=== PATIENT | female | born 1980 | race Caucasian/White ===

== ENCOUNTER 2016-03-29 06:08 | Inpatient (IN) ==
[2016-03-29] MEDS ORDERED: Albuterol 2.5 MG/3 ML NEBULIZER IH ONE (06:26)
[2016-03-29] MEDS ORDERED: Clindamycin 900 MG/50 ML 900 MG/50 ML IV.SOLN IVPB ONE (06:26)
[2016-03-29] MEDS ORDERED: Lidocaine 1% 20 ML MDV ID ONE (06:26)
[2016-03-29] MEDS: Ringers Solution, Lactated 1,000 ML IVC SCH (06:43)
[2016-03-29] MEDS ORDERED: *HR* Phenylephrine 10 MG/ML VIAL ONE (06:44)
[2016-03-29] MEDS ORDERED: Dexamethasone 4 MG/ML VIAL ONE (06:44)
[2016-03-29] MEDS ORDERED: *HR* Midazolam HCl 5 MG/5 ML VIAL IVP ONE (06:44)
[2016-03-29] MEDS ORDERED: *HR* Rocuronium Bromide 50 MG/5 ML VIAL ONE ×2 (06:44→08:24)
[2016-03-29] MEDS ORDERED: Ondansetron 4 MG/2 ML VIAL ONE (06:44)
[2016-03-29] MEDS ORDERED: *HR* FentaNYL (PF) 250 MCG/5 ML VIAL ONE (06:45)
[2016-03-29] MEDS ORDERED: *HR* Propofol 200 MG/20 ML VIAL IVP ONE (06:47)
--- NOTE | 2016-03-29 06:56 | Anesthesia Evaluation PreOp ---
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 WHEEL HAND FILER History: Denies Any Significant HX Other Medical History: Denies Any Significant HX, Other (bipolar) Anesthesia History: No Prior Anesthetic Complications (mutiple condylomas removed), Past Anesthesia Alcohol Use: occasionally Drug use: marijuana Medications and Allergies Albuterol Sulfate [Albuterol Inhaler] 2 puff IH Q4HR PRN 10/01/14 [History] Aripiprazole [Abilify] 30 mg PO DAILY 10/01/14 [History] Diazepam [Valium] 10 mg PO QID PRN 10/01/14 [History] Duloxetine [Cymbalta] 120 mg PO DAILY 10/01/14 [History] Esomeprazole Magnesium [Nexium] 40 mg PO DAILY 10/01/14 [History] Fluticasone/Salmeterol [Advair 500-50 Diskus] 1 puff IH BID 10/01/14 [History] Methocarbamol [Robaxin] 500 mg PO Q8HR PRN #20 tablet 04/28/15 [Rx] Naproxen [Naprosyn] 500 mg PO BID 5 Days 09/04/15 [Rx] Ipratropium/Albuterol Neb [Duoneb] 3 ml IH Q6HR PRN 02/03/16 [History] Oxygen 3 l .ROUTE AD 02/03/16 [History] Tiotropium [place] [Spiriva Respimat] 2 puff IH DAILY 02/03/16 [History] PredniSONE 40 mg PO DAILY 5 Days 02/05/16 [Rx] Azithromycin [Zithromax Tri-Akira] 500 mg PO DAILY #3 tablet 02/23/16 [Rx] PredniSONE [Prednisone] 5 mg PO TAPER #1 packet 02/23/16 [Rx] Allergies Asenapine [From Saphris] Allergy (Verified 02/23/16 15:42) Rash lurasidone [From Latuda] Allergy (Verified 02/23/16 15:42) Rash Cefaclor Adverse Reaction (Verified 02/23/16 15:42) Rash lamotrigine [From Lamictal] Adverse Reaction (Verified 02/23/16 15:42) Migraine - Meds/Allergy Pre-op Review Medications Reviewed: Yes Allergies Reviewed: Yes Beta Blockers on Current Med List: No Anesthesia Results - Imaging EKG: report reviewed Anesthesia Exam Selected Entries 03/29/16 06:34 Temperature 98.4 F Pulse Rate 82 Respiratory Rate 18 Blood Pressure 112/69 O2 Sat by Pulse Oximetry 93 L Height: 65in Weight: 248lbs 41BMI NPO (# of Hours): >8hrs Pain Scale: 0 Pain Scale Used: Numeric (1 - 10) - HEENT Pupil (Motor): EOMI Mallampati: II Teeth: Normal Oral Opening: Greater than 3 - BALANCE WHEEL HAND FILER LOC: Oriented BALANCE WHEEL HAND FILER Motor: Normal RUE, Normal LUE, Normal RLE, Normal LLE, Normal Face BALANCE WHEEL HAND FILER Sensory: Normal: RUE, LUE, RLE, LLE, Face - Cardiac Rhythm: Regular Murmur: None - Pulmonary Breath Sounds: bilateral Clear Respiratory Effort: Symmetrical Anesthesia Assess/Plan ASA Score: 3 Modified [place] Scale for Level of Consciousness: Cooperative, oriented, and tranquil Anesthetic Plan: General Monitoring Plan: Standard Monitors Recovery Plan: PACU (Discussed risks of GA with patient. At this time I don't believe she needs a-line. Did advise due to extensive smoking history and continued smoking (last one this morning), she may require ICU for difficult extubation. Questions answered. Agrees to proceed. Will not attempt epidural due to size.)
--- NOTE | 2016-03-29 07:00 | History & Physical Report ---
Date of Encounter: 03/29/16 Time of Encounter: 06:59 24 Hour HP Update - Instructions Instructions: If the History and Physical is less than 30 days old and was completed prior to A.M. admission and or procedure and has NOT been updated on calendar day of procedure please complete this update prior to performing procedure. - Update Patient reports changes in Medical Condition: No Changes in assessment/condition: No Changes in Medication: No Preop tests/diagnostics Reviewed: Yes Pre-Op MRSA Screen: Negative Surgery Remains Indicated: Yes Consent for Planned Operative Procedure(s) Verified: Yes - Pre-Operative Checklist Preoperative Checklist Indicated: No Prophylactic Antibiotic Ordered: Yes Home Medications Include Beta Jim: No Beta Jim Taken Today (Day of Surgery): No Beta Jim Taken Yesterday (Day Prior to Surgery): No Is VTE Prophylaxis Indicated?: Yes
[2016-03-29] MEDS ORDERED: Bupivacaine/EPI 1:200k 0.5%PF 10 ML VIAL ONE ×2 (07:18→08:58)
--- NOTE | 2016-03-29 09:01 | Operative Note ---
Date of procedure: 03/29/16 Pre-op diagnosis: Interstitial lung disease. Post-op diagnosis: same Procedure: 1. Right posterolateral thoracotomy incision. 2. Right lower lobe lung wedge biopsy. 3. Right middle lobe lung wedge biopsy. 4. Right upper lobe lung wedge biopsy. Implants: None. Complications: None. Anesthesia: GETA Local Anesthetics: 0.5% Sensorcaine HCL with Epinephrine 1:200,000 SubQ (cc) ( 15cc) Surgeon: Ernestina Heard Formula Checker: David Lopez Estimated blood loss (cc): 50 Condition: stable Disposition: ICU Procedure in Detail: INDICATIONS FOR OPERATION: The patient is a 35-year-old lady with a long smoking history who is had progressive shortness of breath and dyspnea on exertion for the least the last 2 -3 years. She states that 2 years ago she smoked 5 packs of cigarettes per day; however, has slowly weaned herself to 1 pack per day currently. Chest CT performed August 22, 2014 revealed cystic lucencies throughout the lung with surrounding groundglass opacities as well as right hilar and mediastinal lymphadenopathy. 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 She requires nocturnal oxygen, and recently was noted to have a decreased oxygen saturation with limited activity will be recertified for oxygen therapy. The patient underwent a fiberoptic bronchoscopy with BAL on February 03, 2016. This test was negative for malignant cells and the patient was not able to tolerate a biopsy due to excessive coughing. Patient is referred for lung biopsy for definitive diagnosis. FINDINGS AT OPERATION: The patient had black lung parenchyma consistent with her long smoking history. No other abnormalities were noted. DESCRIPTION OF OPERATION: After obtaining informed consent from the patient, she was taken to the operating room where satisfactory general endotracheal anesthetic was induced. A double-lumen endotracheal tube was inserted as were other appropriate monitoring lines. The patient was then turned in the left lateral decubitus position and her right lateral chest was prepped and draped in a sterile fashion. A standard posterolateral thoracotomy incision was made in the skin and subcutaneous tissue. The latissimus dorsi muscle group was divided and the serratus anterior muscle group was reflected anteriorly. The fourth intercostal space was identified and entered. Upon entering the right pleural space and examination was performed. The patient had black lung parenchyma consistent with her long smoking history; however, no other abnormalities were noted. The right lower lobe, right middle lobe, and right upper lobe were identified. Wedge biopsies of all 3 lobes were then taken using a ELISA stapling device. Two 32 [place] chest tubes were placed, one anteriorly and one posteriorly. The ribs were reapproximated using #1 Vicryl suture. The serratus anterior muscle group, latissimus dorsi muscle group, subcutaneous tissue, and skin edges were reapproximated using running Vicryl sutures. Sterile dressings were then applied. The patient was transferred to the ICU in satisfactory postoperative condition. There were no intraoperative complications, and the isthmic, needle, and sponge count were correct at end of operation.
[2016-03-29] MEDS ORDERED: *HR* OxyCODONE/APAP 5/325 TABLET PO PRN (09:08)
[2016-03-29] MEDS ORDERED: *HR* Morphine 2 MG/ML SYRINGE IVP PRN ×2 (09:08)
[2016-03-29] MEDS ORDERED: Naloxone 0.4 MG/ML INJ IVP PRN (09:08)
[2016-03-29 09:44] LABS: Basophils # 0.1 K/mcL (0.0-0.2); Basophils % 0.4 %; Eosinophils # 0.4 K/mcL (0.0-0.6); Eosinophils % 2.5 %; Hematocrit 45.5 % (35.3-44.9); Immature Granulocytes % 0.4 % (0-4); Lymphocytes # 3.8 K/mcL (0.6-4.6); Lymphocytes % 27.1 %; Mean Corpuscular HGB Conc 31.9 g/dL (31.6-35.5); Mean Corpuscular Hemoglobin 29.7 pg (28.0-33.3); Mean Platelet Volume 8.8 fL (9.4-12.4); Monocytes # 0.5 K/mcL (0.0-1.3); Monocytes % 3.8 %; Neutrophils # 9.2 K/mcL (1.6-8.9); Platelet Count 282 K/mcL (140-400); Red Blood Count 4.89 M/mcL (3.82-4.97); Red Cell Distribution Width 14.5 % (11.5-14.5); Segmented Neutrophils % 65.8 %
[2016-03-29 09:46] LABS: Hemoglobin 14.5 g/dL (11.5-15.4)
[2016-03-29] MEDS: *HR* HYDROmorphone 20 MG/20 ML PCA IVC PRN ×2 (10:11→22:36)
[2016-03-29] MEDS: 0.9 % Sodium Chloride w KCl 20 MEQ/1,000 ML MLS IV SCH (10:17)
[2016-03-29] MEDS: Albuterol 2.5 MG/3 ML NEBULIZER IH SCH ×3 (11:50→20:39)
[2016-03-29] MEDS: Ketorolac 15 MG/ML VIAL IVP SCH ×3 (14:03→23:05)
[2016-03-29] MEDS: Clindamycin 900 MG/50 ML 900 MG/50 ML IV.SOLN IVPB SCH ×2 (18:30→23:39)
[2016-03-29] MEDS: *HR* Heparin 5,000 UNIT/ML VIAL SQ SCH (18:31)
[2016-03-29 22:29] LABS: Calcium 8.6 mg/dL (8.6-10.8); Potassium 6.4 mEq/L (3.5-4.5)
[2016-03-29 23:24] LABS: Calcium 8.5 mg/dL (8.6-10.8); Potassium 6.1 mEq/L (3.5-4.5)
[2016-03-29] MEDS ORDERED: 0.9 % Sodium Chloride 500 ML ONE (23:36)
[2016-03-30] MEDS: Albuterol 2.5 MG/3 ML NEBULIZER IH SCH ×5 (00:43→15:15)
[2016-03-30 04:30] LABS: Basophils % 0.1 %; Eosinophils % 0.1 %; Hematocrit 42.5 % (35.3-44.9); Hemoglobin 13.4 g/dL (11.5-15.4); Immature Granulocytes % 0.5 % (0-4); Lymphocytes # 2.5 K/mcL (0.6-4.6); Lymphocytes % 15.7 %; Mean Corpuscular HGB Conc 31.5 g/dL (31.6-35.5); Mean Corpuscular Hemoglobin 30.1 pg (28.0-33.3); Mean Corpuscular Volume 95.5 fL (83.0-100.0); Monocytes # 1.1 K/mcL (0.0-1.3); Monocytes % 6.8 %; Neutrophils # 12.4 K/mcL (1.6-8.9); Platelet Count 285 K/mcL (140-400); Red Blood Count 4.45 M/mcL (3.82-4.97); Red Cell Distribution Width 14.4 % (11.5-14.5); Segmented Neutrophils % 76.8 %
[2016-03-30 04:42] LABS: Calcium 8.7 mg/dL (8.6-10.8)
[2016-03-30 05:39] LABS: Potassium 4.6 mEq/L (3.5-4.5)
[2016-03-30] MEDS: Ketorolac 15 MG/ML VIAL IVP SCH (06:36)
[2016-03-30] MEDS: *HR* Heparin 5,000 UNIT/ML VIAL SQ SCH ×2 (06:38→18:06)
[2016-03-30] MEDS: 0.9 % Sodium Chloride w KCl 20 MEQ/1,000 ML MLS IV SCH (06:39)
[2016-03-30] MEDS: Ringers Solution, Lactated 1,000 ML IVC SCH (06:39)
--- NOTE | 2016-03-30 09:01 | Cardiothoracic Progress Note ---
Date of Encounter: 03/30/16 Time of Encounter: 08:59 - Assessment and plan (1) Interstitial lung disease Current Visit: Yes Status: Acute The patient is recovering well from her right thoracotomy with open lung biopsy 3. She will be transferred to the stepdown unit today. Aggressive pulmonary toilet will continue. The assessment and plan as outlined above was discussed with the patient and/or family members who expressed understanding and agreement. All questions were answered. - Subjective Procedure(s) Performed: POD#1 S/P Right thoracotomy with wedge biopsy 3 Interval history: The patient remains extubated and is breathing comfortably. Her postoperative pain is fairly well controlled with a Dilaudid FRONT OFFICE SUPERVISOR. She has no complaints. Vital Signs, Last 4 Hours Temp Pulse Resp BP Pulse Ox 03/30/16 08:39 98.7 F 03/30/16 08:00 86 24 86/63 91 L 03/30/16 07:30 89 03/30/16 07:00 80 12 110/80 91 L 03/30/16 06:00 77 18 116/94 91 L 03/30/16 05:00 76 16 128/84 87 L [place] Flow Rate Oxygen Flow Rate (LPM) 15 Clinical Data, last 8 Hours Output, Chest Tube Drainage 20 Amount [Right Lateral Chest #2 ] Output, Chest Tube Drainage 20 Amount [Right Lateral Chest #2 ] Output, Chest Tube Drainage 34 Amount [Right Lateral Chest #2 ] Output, Chest Tube Drainage 10 Amount [Right Lateral Chest #1 ] Output, Chest Tube Drainage 10 Amount [Right Lateral Chest #1 ] Output, Chest Tube Drainage 17 Amount [Right Lateral Chest #1 ] Output, Urine Amount [Urethral 100 (Ruiz)] Output, Urine Amount [Urethral 100 (Ruiz)] Weight 03/28/16 03/29/16 03/30/16 23:59 23:59 23:59 Weight 111.13 kg 114.6 kg - Physical Examination General: Conversant, No Apparent Distress Neck: No JVD, Normal carotid pulses Cardiac: Reg Rate and Rhythm, Normal S1 and S2, No Murmur Incision: No signs of infection, Dry/intact dressing Chest tubes: Minimal drainage, Other (No air leak.) Lungs: Normal Breath Sounds, No Wheeze, Rales, Rhonchi Neuro: Alert and responsive, No focal deficits noted Vascular: Normal capillary refill Extremities: No Clubbing, No Cyanosis, No Edema - Labs 03/30/16 04:09 03/30/16 04:09 Lab Results, Last 24 hours 03/29/16 03/29/16 03/29/16 09:34 22:11 23:05 WBC 14.1 H Hgb 14.5 D Hct 45.5 H Plt Count 282 Sodium 135 L 135 L Potassium 6.4 H 6.1 H Chloride 100 100 Carbon Dioxide 25 24 BUN 11 11 Creatinine 1.33 H 1.27 H Glucose 95 93 Calcium 8.6 8.5 L 03/30/16 03/30/16 04:09 04:09 WBC 16.2 H Hgb 13.4 Hct 42.5 Plt Count 285 Sodium 137 Potassium 4.6 H D Chloride 98 Carbon Dioxide 30 H BUN 15 Creatinine 1.44 H Glucose 93 Calcium 8.7 - Imaging Chest Xray: image reviewed (No pneumothorax. Bibasilar atelectasis.) - VTE Documentation of Mechanical Device: Intermittent pneumatic compression device Consult Discharge Plan - Plan Referrals: Mervin Santiago MD [Primary Care Provider] -
[2016-03-30] MEDS ORDERED: Budesonide/Formoterol 160/4.5 MDI IH SCH ×2 (09:46→10:45)
[2016-03-30] MEDS ORDERED: Ipratropium/Albuterol Neb 3 ML IH PRN (09:46)
[2016-03-30] MEDS ORDERED: *HR* HYDROmorphone 20 MG/20 ML PCA IVC PRN (09:46)
[2016-03-30] MEDS ORDERED: Methocarbamol 500 MG TABLET PO PRN (09:46)
[2016-03-30] MEDS ORDERED: Naloxone 0.4 MG/ML INJ IVP PRN (09:46)
[2016-03-30] MEDS: Tiotropium 18 MCG inhalation IH SCH (10:39)
[2016-03-30] MEDS: 0.9 % Sodium Chloride 1,000 ML IVC SCH (10:57)
[2016-03-30] MEDS: ARIPiprazole 10 MG TABLET PO SCH (10:58)
[2016-03-30] MEDS: *HR* OxyCODONE/APAP 5/325 TABLET PO PRN ×3 (11:08→23:34)
[2016-03-30] MEDS ORDERED: Ondansetron 4 MG/2 ML VIAL ONE (11:24)
[2016-03-30] MEDS: Ondansetron 4 MG/2 ML VIAL IVP PRN ×2 (11:28→23:57)
[2016-03-30 11:50] LABS: Uric Acid 7.2 mg/dL (2.6-6.0)
[2016-03-30 14:09] LABS: Bilirubin,Urine Negative (Negative); Blood,Urine Large (Negative); Clarity,Urine Clear (Clear); Color,Urine Yellow (Yellow); Glucose,Urine (UA) Normal (Normal); Ketones,Urine Negative (Negative); Leukocyte Esterase,Urine Trace (Negative); Nitrite,Urine Negative (Negative); PH,Urine 5.5 pH Units (5.0-8.0); Protein,Urine Negative (Neg-Trace); Urobilinogen,Urine Normal (Normal)
[2016-03-30 14:10] LABS: Bacteria,Urine None Seen per hpf (None-Few); Hyaline Casts,Urine None Seen per lpf (None-Few); RBC,Urine TNTC per hpf (0-3); Squamous Epithelial Cell,Urine Many per lpf (None-Few)
[2016-03-30] MEDS ORDERED: *HR* HYDROmorphone 2 MG/ML SYRINGE IVP ONE (15:59)
[2016-03-30] MEDS ORDERED: *HR* HYDROmorphone 2 MG/ML SYRINGE ONE (16:04)
--- NOTE | 2016-03-30 16:43 | Pulmonology Consult Note ---
<Real Carlisle - Last Filed: 03/30/16 16:34> Date of Encounter: 03/30/16 Time of Encounter: 16:15 Assessment and Plan (1) Hypoxia Current Visit: Yes Status: Acute Patient has been having recurrent episodes of hypoxia post thoracotomy for lung biopsy oligocystic lesion seen on CT exam. Patient has extensive smoking history with COPD and suspected interstitial lung disease. Patient current hypoxia could be related to her not having her home inhaled medications as well as inability to take deep breaths due to pain associated with recent thoracotomy. The patient's RN reports that her hypoxia seems to occur upon awakening after sleep and not having adequate analgesia. Patient placed on BiPAP with low-pressure Symbicort causes patient nausea despite her taking Advair at home normally We will have patient take home Advair and will stop Symbicort Scheduled DuoNeb Continue when necessary albuterol Continue home Spiriva We will add 40 mg Solu-Medrol every 8 hours (2) Post-thoracotomy pain Current Visit: Yes Status: Acute Patient continues to have significant pain in her right posterior back due to recent thoracotomy. She is on a Dilaudid FUNCTIONAL ARCHITECT to help her with pain, this appears to be working moderately well. We will continue Dilaudid FUNCTIONAL ARCHITECT (3) Interstitial lung disease Current Visit: Yes Status: Acute Patient underwent elective thoracotomy with right lung biopsy on 03/29/16 for closer evaluation of cystic lesion seen in right lung and groundglass opacities. (4) MECHELLE (acute kidney injury) Current Visit: Yes Status: Acute Patient has had elevated serum creatinine since admission to the hospital with prior normal levels of serum creatinine. This could be related to stress and recent surgery. Patient continue to have good urinary output We will continue to monitor labs closely (5) Leukocytosis Current Visit: Yes Status: Acute Likely result of recent stress from thoracotomy Qualifiers: Leukocytosis type: unspecified Qualified Code(s): D72.829 - Elevated white blood cell count, unspecified (6) DVT prophylaxis Current Visit: Yes Status: Acute GI prophylaxis: Omeprazole DVT prophylaxis: Heparin Neuro/sedation: No concerns this time Pulmonary: Hypoxemia due to pain versus not be on home medications. Will continue home medications Advair, Spiriva, will add Solu-Medrol and DuoNeb. BiPAP as needed to maintain oxygen saturations. Continue Dilaudid FUNCTIONAL ARCHITECT for analgesia the patient more inclined to take deep breaths. Cardiovascular: Tachycardia likely result of pain. Fluids/electrolytes: Slight hyperkalemia, will continue monitor GI: Acid production with cough, some nausea. Will continue Prilosec and Tums as needed Renal: MECHELLE likely result of recent procedures. We will continue to monitor ID: No concerns at this time Heme/Onc: Recent biopsies of cystic lesions lung, weighing lung biopsy CODE STATUS: Full History of Present Illness Consult date: 03/30/16 Requesting physician: Ernestina Heard Reason for consult: hypoxemia Chief complaint: Hypoxia post thoracotomy and lung biopsy History of present illness: Mrs. Monet came to [place] for elective thoracotomy with wedge biopsies of the upper, middle, and lower right lung. She was found in August 2014 CT to have cystic linear densities throughout the lung strata by groundglass opacity with hilar and mediastinal lymphadenopathy. She had been having shortness of breath and dyspnea on exertion for 2-3 years. She has medical history is significant for COPD due to extensive smoking history. Reports that up until a couple years ago she smoked 5 packs of cigarettes a day since weaned herself down. Post thoracotomy patient has been relatively relatively comfortable but has developed some hypoxemia. She also complains of some nausea but she states it might be related to acid in her stomach. She does feel like she has to cough, though finds it painful and difficult. She does says that when she coughs it is productive of both blood and some sputum. She also reports pain with deep inspiration at the site of her recent thoracotomy. Past Med Surg Social Fam HX - Past Medical History Medical history: COPD, GERD, other Psychiatric history: anxiety, bipolar, depression - Social History Smoking Status: Current every day smoker Packs per day: 1 Smokeless Tobacco Status: No Alcohol use: occasionally Drug use: marijuana Medications and Allergies Albuterol Sulfate [Albuterol Inhaler] 2 puff IH Q4HR PRN 10/01/14 [History] Aripiprazole [Abilify] 30 mg PO DAILY 10/01/14 [History] Diazepam [Valium] 10 mg PO QID PRN 10/01/14 [History] Duloxetine [Cymbalta] 120 mg PO DAILY 10/01/14 [History] Esomeprazole Magnesium [Nexium] 40 mg PO DAILY 10/01/14 [History] Fluticasone/Salmeterol [Advair 500-50 Diskus] 1 puff IH BID 10/01/14 [History] Methocarbamol [Robaxin] 500 mg PO Q8HR PRN #20 tablet 04/28/15 [Rx] Naproxen [Naprosyn] 500 mg PO BID 5 Days 09/04/15 [Rx] Ipratropium/Albuterol Neb [Duoneb] 3 ml IH Q6HR PRN 02/03/16 [History] Oxygen 3 l .ROUTE AD 02/03/16 [History] Tiotropium [place] [Spiriva Respimat] 2 puff IH DAILY 02/03/16 [History] Allergies Cefaclor Allergy (Verified 03/29/16 07:40) Rash Asenapine [From Saphris] Adverse Reaction (Verified 03/29/16 07:40) See Comments patient states symptoms worsen lamotrigine [From Lamictal] Adverse Reaction (Verified 03/29/16 07:40) Migraine lurasidone [From Latuda] Adverse Reaction (Verified 03/29/16 07:40) See Comments patient states symptoms worsen - Constitutional Constitutional: no chills, no fever(s), no headache(s) - Cardiovascular Cardiovascular: chest pain (In posterior right chest, site of thoracotomy), dyspnea, no lightheadedness, no palpitations - Respiratory Respiratory: cough, dyspnea, hemoptysis, pain on inspirtation, pain with cough - Gastrointestinal Gastrointestinal: heartburn, nausea, no abdominal pain, no melena, no vomiting - Neurological Neurological: no confusion, no headache(s) Physical Examination Vital Signs: Vital Signs, Last 4 Hours Temp Pulse Resp BP Pulse Ox 03/30/16 16:03 15 160/62 92 L 03/30/16 16:00 111 03/30/16 15:00 80 14 139/90 86 L 03/30/16 13:00 97.4 F L 79 12 151/90 93 L General appearance: alert, appears uncomfortable Eyes: nonicteric ENT: oropharynx moist Effort: mildly labored Auscultation: left: clear, right: rales Cardiovascular: other (Tachycardia, regular rhythm) Gastrointestinal: normoactive bowel sounds, soft, non-tender, non-distended Integumentary: normal, other ([address] in right, posterior chest training sanguinous fluid, water seals intact) Extremities: no cyanosis, no edema, no clubbing, pink and warm, pulses normal Musculoskeletal: no deformities normal mental status, non-focal exam, pupils equal and round mood appropriate, affect normal Results - Laboratory Findings CBC and BMP: 03/30/16 04:09 03/30/16 04:09 Abnormal lab findings: Abnormal lab results WBC 16.2 K/mcL (4.3-11.1) H 03/30/16 04:09 MCHC 31.5 g/dL (31.6-35.5) L 03/30/16 04:09 MPV 9.0 fL (9.4-12.4) L 03/30/16 04:09 Neutrophils # 12.4 K/mcL (1.6-8.9) H 03/30/16 04:09 Potassium 4.6 mEq/L (3.5-4.5) H D 03/30/16 04:09 Carbon Dioxide 30 mEq/L (19-29) H 03/30/16 04:09 Creatinine 1.44 mg/dL (0.57-1.11) H 03/30/16 04:09 Est GFR ( Amer) 50 (> 60) L 03/30/16 04:09 Est GFR (Non-Af Amer) 41 (> 60) L 03/30/16 04:09 POC Glucose 101 (58-89) H 03/29/16 09:31 Uric Acid 7.2 mg/dL (2.6-6.0) H 03/30/16 04:09 Creatine Kinase 1345 Units/L (29-168) H 03/30/16 04:09 Urine Blood Large (Negative) H 03/30/16 13:55 Ur Leukocyte Esterase Trace (Negative) H 03/30/16 13:55 Urine Microscopic RBC TNTC per hpf (0-3) H 03/30/16 13:55 Urine Microscopic WBC 5-15 per hpf (0-3) H 03/30/16 13:55 Ur Squamous Epith Cells Many per lpf (None-Few) H 03/30/16 13:55 Ur Culture Indicated? YES (NO) A 03/30/16 13:55 - Clinical Findings Intake & Output: Intake & Output 03/30/16 03/30/16 03/30/16 07:59 15:59 23:59 Intake Total 530 / 530 480 / 480 Output Total 281 / 281 500 / 500 100 / 100 Balance 249 / 249 -20 / -20 -100 / -100 Weight 114.6 kg Consult Discharge Plan - Plan Referrals: Mervin Santiago MD [Primary Care Provider] - <Suzan Bhagat - Last Filed: 03/30/16 21:34> All Systems: A 10-system review of systems was performed and is negative for pertinent findings except as documented above in the HPI. Physical Examination Vital Signs: Vital Signs, Last 4 Hours Temp Pulse Resp BP Pulse Ox 03/30/16 20:51 12 144/73 95 03/30/16 20:45 97.7 F 03/30/16 20:19 96 12 144/73 93 L 03/30/16 17:35 20 87 L Results - Laboratory Findings CBC and BMP: 03/30/16 04:09 03/30/16 16:49 Abnormal lab findings: Abnormal lab results WBC 16.2 K/mcL (4.3-11.1) H 03/30/16 04:09 MCHC 31.5 g/dL (31.6-35.5) L 03/30/16 04:09 MPV 9.0 fL (9.4-12.4) L 03/30/16 04:09 Neutrophils # 12.4 K/mcL (1.6-8.9) H 03/30/16 04:09 Sodium 131 mEq/L (136-145) L 03/30/16 16:49 Chloride 96 mEq/L (98-109) L 03/30/16 16:49 Creatinine 1.31 mg/dL (0.57-1.11) H 03/30/16 16:49 Est GFR ( Amer) 56 (> 60) L 03/30/16 16:49 Est GFR (Non-Af Amer) 46 (> 60) L 03/30/16 16:49 POC Glucose 101 (58-89) H 03/29/16 09:31 Calculated Osmolality 272 (280-300) L 03/30/16 16:49 Uric Acid 7.2 mg/dL (2.6-6.0) H 03/30/16 04:09 Calcium 8.4 mg/dL (8.6-10.8) L 03/30/16 16:49 Creatine Kinase 1345 Units/L (29-168) H 03/30/16 04:09 Urine Blood Large (Negative) H 03/30/16 13:55 Ur Leukocyte Esterase Trace (Negative) H 03/30/16 13:55 Urine Microscopic RBC TNTC per hpf (0-3) H 03/30/16 13:55 Urine Microscopic WBC 5-15 per hpf (0-3) H 03/30/16 13:55 Ur Squamous Epith Cells Many per lpf (None-Few) H 03/30/16 13:55 Ur Culture Indicated? YES (NO) A 03/30/16 13:55 - Clinical Findings Intake & Output: Intake & Output 03/30/16 03/30/16 03/30/16 07:59 15:59 23:59 Intake Total 530 / 530 480 / 480 240 / 240 Output Total 281 / 281 850 / 850 400 / 400 Balance 249 / 249 -370 / -370 -160 / -160 Weight 114.6 kg - Attending Attestation I examined this patient and my medical decision-making was reviewed with the LINOLEUM MECHANIC/PA/Advanced Practice Nurse/Resident Physician. I agree with the documented findings, disposition and treatment plan as described except to the extent set forth below. Patient seen and examined. Labs, radiology, chart personally reviewed. Agree with resident's history and physical, assessment, plan with following comments: FOOD TECHNICIAN: Patient follows commands, Pulmonary: Patient has acute/chronic hypoxic respiratory failure and I feel she ahs component of AECOPD. WIll treat with bronchodilators, steroid and NIV. Patient SPO2 has improved and I feel with pain and atelectasis, her hypoxia could get worse. Encouraged patient to do IS. At this point she feels more comfortable and as soon as she has better oxygenation, will wean off positive pressure to face mask or NC due to her recent surgery. Patient has chest tubes which is been managed by Dr. Heard. If she doesn't respond to NIV, then she will need to be placed on invasive mechanical ventilation. Cardiovascular: stable GI: Nutrition per dietary and GI prophylaxis per routine Heme: DVT prophylaxis per routine ID: Continue antibiotics and plan to de-escalation Renal; urine out put and renal funtion reviewed Endorcine: blood glucose is monitored Lines: all lines checked and no evidence of infections Skin: skin care to prevent pressure ulcers per nursing routine care I spent 35 min of Critical Care time with this patient. It involved decision making of high complexity to assess, manipulate, and support vital organ system failure and/or to prevent further life threatening deterioration of the patient' s condition. The time involved in the performance of separately reportable procedures was not counted toward critical care time.
[2016-03-30 17:10] LABS: Calcium 8.4 mg/dL (8.6-10.8); Potassium 4.2 mEq/L (3.5-4.5)
--- NOTE | 2016-03-30 17:25 | Nephrology Consult Note ---
Date of Encounter: 03/30/16 Time of Encounter: 10:30 Assessment and Plan (1) MECHELLE (acute kidney injury) Current Visit: Yes Status: Acute Elevated SCr in the setting of NSAIDs use, mild hypotension Will bolus 500cc NS now and encourage po fluids Will stop naproxen and all nephrotoxins if possible Will check CK and uric acid levels Will check urine sodium and creatinine as well as eosinophils (2) Hyperkalemia Current Visit: Yes Status: Acute Likely due to MECHELLE and supplements Potassium also most normalized at 4.6 s/p kayexalate Agree with no more potassium supplements or lactate ringer Will repeat BMP this pm History of Present Illness - Reason for Consult Consult date: 03/30/16 Acute Kidney Injury, hyperkalemia Requesting physician: Ernestina Heard - History of Present Illness 35 y o female with PMH of previous tobacco use and COPD admitted for thoracotomy for lung biopsy with progressive history of SOB of several years duration. Post thoracotomy complicated by hyperkalemia and elevated SCr up to 6.4 and 1.44, GFR 41 respectively. She denies any prior history of renal disease. Previos SCr ranged from 0.6 to 0.8, GFR >60. She reports history of stress incontinence but no kidney stones. She ddoes have a significant history of NSAIDs use on outpatient and did receive toradol and her home medication, naproxen. she also received IVf with potassium supplements along with lactate ringer yesterday but now discontinued. She did have a brief epsiode of madhav BP down to 80s systolic otherwise no other compalints except for nausea this am. Chest tube in place with minimal discomfort Past Med Surg Social Fam HX - Past Medical History Medical history: COPD, GERD, other Psychiatric history: anxiety, bipolar, depression - Social History Smoking Status: Current every day smoker Packs per day: 1 Smokeless Tobacco Status: No Alcohol use: occasionally Drug use: marijuana Medications and Allergies Albuterol Sulfate [Albuterol Inhaler] 2 puff IH Q4HR PRN 10/01/14 [History] Aripiprazole [Abilify] 30 mg PO DAILY 10/01/14 [History] Diazepam [Valium] 10 mg PO QID PRN 10/01/14 [History] Duloxetine [Cymbalta] 120 mg PO DAILY 10/01/14 [History] Esomeprazole Magnesium [Nexium] 40 mg PO DAILY 10/01/14 [History] Fluticasone/Salmeterol [Advair 500-50 Diskus] 1 puff IH BID 10/01/14 [History] Methocarbamol [Robaxin] 500 mg PO Q8HR PRN #20 tablet 04/28/15 [Rx] Naproxen [Naprosyn] 500 mg PO BID 5 Days 09/04/15 [Rx] Ipratropium/Albuterol Neb [Duoneb] 3 ml IH Q6HR PRN 02/03/16 [History] Oxygen 3 l .ROUTE AD 02/03/16 [History] Tiotropium [place] [Spiriva Respimat] 2 puff IH DAILY 02/03/16 [History] Allergies Cefaclor Allergy (Verified 03/29/16 07:40) Rash Asenapine [From Saphris] Adverse Reaction (Verified 03/29/16 07:40) See Comments patient states symptoms worsen lamotrigine [From Lamictal] Adverse Reaction (Verified 03/29/16 07:40) Migraine lurasidone [From Latuda] Adverse Reaction (Verified 03/29/16 07:40) See Comments patient states symptoms worsen Review of Systems All Systems: reviewed and no additional remarkable complaints except as stated ( 10 systems reviewed as noted in hPI) Exam - Vital Signs Vital signs: Initial Vital Signs Temp Pulse Resp BP Pulse Ox 98.4 F 82 18 112/69 93 L 03/29/16 06:23 03/29/16 06:23 03/29/16 06:23 03/29/16 06:23 03/29/16 06:23 Vital Signs - Last 8 Hours Temp Pulse Resp BP Pulse Ox 03/30/16 16:40 10 143/74 93 L 03/30/16 16:03 15 160/62 92 L 03/30/16 16:00 111 03/30/16 15:30 97.9 F 03/30/16 15:00 80 14 139/90 86 L 03/30/16 13:00 97.4 F L 79 12 151/90 93 L 03/30/16 11:15 97.4 F L 03/30/16 11:12 75 03/30/16 11:00 77 10 119/84 94 L Intake and Output 03/30/16 03/30/16 03/30/16 07:59 15:59 23:59 Intake Total 530 / 530 480 / 480 Output Total 281 / 281 850 / 850 100 / 100 Balance 249 / 249 -370 / -370 -100 / -100 Intake: IV Fluids 50 / 50 Cleocin 900 MG/50 ML 900 50 / 50 mg In 50 ml @ 50 mls/hr IVPB Q8HR [facility] Rx#: [id number] Oral 480 / 480 480 / 480 Output: Urine 200 / 200 100 / 100 100 / 100 Urethral (Ruiz) 200 / 200 100 / 100 100 / 100 Catheter 650 / 650 Chest Tube Drainage 81 / 81 100 / 100 Right Lateral Chest #1 27 / 27 30 / 30 Right Lateral Chest #2 54 / 54 70 / 70 Other: Meal Breakfast Percent of Meal Consumed 50% Weight 114.6 kg Patient Weight 03/30/16 23:59 Weight 114.6 kg - General Appearance General appearance: well-developed, well-nourished EENT: ATNC, PERRL Neck: no JVD, supple Respiratory: clear (+Chest tubes) Cardiology: no edema, normal S1, normal S2 Gastrointestinal: no tenderness, no guarding Integumentary: warm and dry Neurologic: no focal deficit Musculoskeletal: no deformities Psychiatric: mood/affect appropriate Results - Lab Results 04/01/16 04:05 04/01/16 04:05 Most recent lab results Calcium 8.4 mg/dL (8.6-10.8) L 03/30/16 16:49 Consult Discharge Plan - Plan Referrals: Mervin Santiago MD [Primary Care Provider] - (SENT WEB REQUEST ON 04-01-16 [id number]) Ernestina Heard MD [Partnered Physician] - 04/22/16 2:20 pm
[2016-03-30] MEDS: Ipratropium/Albuterol Neb 3 ML IH SCH ×2 (17:35→20:51)
[2016-03-30] MEDS: diazePAM 5 MG TABLET PO PRN (19:05)
[2016-03-30] MEDS ORDERED: Mag Hydrox/Al Hydrox/Simeth 30 ML UDC PO PRN (20:00)
[2016-03-30 21:25] LABS: Creatinine,Urine 99 mg/dL
[2016-03-30 21:27] LABS: Sodium, Urine < 20.0 mEq/L
[2016-03-30] MEDS: MethylPREDNISolone 40 MG/ML VIAL IVP SCH (23:10)
[2016-03-31] MEDS: Ipratropium/Albuterol Neb 3 ML IH SCH ×7 (00:25→19:54)
[2016-03-31 04:31] LABS: Hematocrit 39.2 % (35.3-44.9); Hemoglobin 12.5 g/dL (11.5-15.4); Mean Corpuscular HGB Conc 31.9 g/dL (31.6-35.5); Mean Corpuscular Hemoglobin 30.2 pg (28.0-33.3); Mean Corpuscular Volume 94.7 fL (83.0-100.0); Mean Platelet Volume 9.4 fL (9.4-12.4); Platelet Count 211 K/mcL (140-400); Red Blood Count 4.14 M/mcL (3.82-4.97); Red Cell Distribution Width 14.2 % (11.5-14.5)
[2016-03-31 04:46] LABS: Calcium 8.8 mg/dL (8.6-10.8)
[2016-03-31 04:51] LABS: Potassium 5.5 mEq/L (3.5-4.5)
[2016-03-31] MEDS ORDERED: Furosemide 20 MG/2 ML VIAL IVP ONE (05:52)
[2016-03-31] MEDS: *HR* Heparin 5,000 UNIT/ML VIAL SQ SCH ×2 (05:58→18:20)
--- NOTE | 2016-03-31 07:01 | Cardiothoracic Progress Note ---
Date of Encounter: 03/31/16 Time of Encounter: 06:59 - Assessment and plan (1) Interstitial lung disease Current Visit: Yes Status: Acute The patient is recovering well from her right thoracotomy with open lung biopsy 3. The chest tubes were removed. She will be transferred to the stepdown unit when a bed is available. Aggressive pulmonary toilet will continue. The assessment and plan as outlined above was discussed with the patient and/or family members who expressed understanding and agreement. All questions were answered. - Subjective Procedure(s) Performed: POD#2 S/P Right thoracotomy with wedge biopsy 3 Interval history: The patient remains extubated and is breathing comfortably. Her postoperative pain is fairly well controlled with a Dilaudid GAS APPLIANCE SERVICER. She has no complaints. Vital Signs, Last 4 Hours Temp Pulse Resp BP Pulse Ox 03/31/16 04:49 98.3 F 90 17 148/85 87 L 03/31/16 04:35 22 148/85 94 L Oxgyen Flow Rate Oxygen Flow Rate (LPM) 15 Clinical Data, last 8 Hours Output, Chest Tube Drainage 30 Amount [Right Lateral Chest #2 ] Output, Chest Tube Drainage 38 Amount [Right Lateral Chest #1 ] Weight 03/29/16 03/30/16 03/31/16 23:59 23:59 23:59 Weight 111.13 kg 114.6 kg 115.847 kg - Physical Examination General: Conversant, No Apparent Distress Neck: No JVD, Normal carotid pulses Cardiac: Reg Rate and Rhythm, Normal S1 and S2, No Murmur Incision: No signs of infection, Dry/intact dressing Chest tubes: Minimal drainage, Other (No air leak.) Lungs: Normal Breath Sounds, No Wheeze, Rales, Rhonchi Neuro: Alert and responsive, No focal deficits noted Vascular: Normal capillary refill Extremities: No Clubbing, No Cyanosis, No Edema - Labs 03/31/16 03:55 03/31/16 03:55 Lab Results, Last 24 hours 03/30/16 03/30/16 03/31/16 04:09 16:49 03:55 WBC 15.6 H Hgb 12.5 Hct 39.2 Plt Count 211 Sodium 137 131 L Potassium 4.6 H D 4.2 Chloride 98 96 L Carbon Dioxide 30 H 24 BUN 15 14 Creatinine 1.44 H 1.31 H Glucose 93 93 Calcium 8.7 8.4 L 03/31/16 03:55 WBC Hgb Hct Plt Count Sodium 130 L Potassium 5.5 H D Chloride 97 L Carbon Dioxide 23 BUN 14 Creatinine 1.32 H Glucose 117 H Calcium 8.8 - Imaging Chest Xray: image reviewed (No pneumothorax. Bibasilar atelectasis/low lung volumes.) - VTE Documentation of Mechanical Device: Intermittent pneumatic compression device Consult Discharge Plan - Plan Referrals: Mervin Santiago MD [Primary Care Provider] -
[2016-03-31] MEDS: Tiotropium 18 MCG inhalation IH SCH (08:02)
--- NOTE | 2016-03-31 08:47 | Pulmonology Progress Note ---
<Real Carlisle - Last Filed: 03/31/16 11:17> Date of Encounter: 03/31/16 Time of Encounter: 08:30 Assessment and Plan (1) Hypoxia Current Visit: Yes Status: Acute Patient has been having recurrent episodes of hypoxia post thoracotomy for lung biopsy of cystic lesions seen on CT exam. Patient has extensive smoking history with COPD and suspected interstitial lung disease. Patient current hypoxia could be related to her not having her home inhaled medications as well as inability to take deep breaths due to pain associated with recent thoracotomy. The patient's RN reports that her hypoxia seems to occur upon awakening after sleep and not having adequate analgesia. We will have BiPAP off and on available for patient but recommend to maintain oxygen saturation is inserted Symbicort causes patient nausea despite her taking Advair at home normally We will have patient take home Advair and will stop Symbicort Scheduled DuoNeb Continue when necessary albuterol Continue home Spiriva Continue 40 mg Solu-Medrol every 8 hours We will encourage mobilization to hopefully increase lung volumes and debility of lungs to expand (2) Post-thoracotomy pain Current Visit: Yes Status: Acute Patient states she is had much improvement in the pain and right-sided for chest. She is on a Dilaudid FOOD AND BEVERAGE OPERATIONS MANAGER to help her with pain, this appears to be working well. We will continue Dilaudid FOOD AND BEVERAGE OPERATIONS MANAGER (3) Interstitial lung disease Current Visit: Yes Status: Acute Patient underwent elective thoracotomy with right lung biopsy on 03/29/16 for closer evaluation of cystic lesion seen in right lung and groundglass opacities. (4) MECHELLE (acute kidney injury) Current Visit: Yes Status: Acute Patient has had elevated serum creatinine since admission to the hospital with prior normal levels of serum creatinine. Possibly due to anti-inflammatory usage and hypotension per nephrology. Patient continue to have good urinary output Nephrology is following, appreciate recommendations for continued management and care We will avoid potentially nephrotoxic agents We will continue to monitor labs closely (5) Leukocytosis Current Visit: Yes Status: Acute Likely result of recent stress from thoracotomy and Solu-Medrol administration Qualifiers: Leukocytosis type: unspecified Qualified Code(s): D72.829 - Elevated white blood cell count, unspecified (6) DVT prophylaxis Current Visit: Yes Status: Acute GI prophylaxis: Omeprazole DVT prophylaxis: Heparin Neuro/sedation: No concerns this time Pulmonary: Hypoxemia due to pain versus not be on home medications. Will continue home medications Advair, Spiriva, will add Solu-Medrol and DuoNeb. BiPAP as needed to maintain oxygen saturations. Continue Dilaudid FOOD AND BEVERAGE OPERATIONS MANAGER for analgesia the patient more inclined to take deep breaths. Encourage mobilization Cardiovascular: Tachycardia likely result of pain. Fluids/electrolytes: Slight hyperkalemia, will continue monitor and possibly give more Kayexalate GI: Acid production with cough, nausea resolved, will give simethicone. Will continue Prilosec Renal: MECHELLE likely result of hypotension and had usage. Nephrology following. We will continue to monitor ID: Urine culture negative. No concerns at this time Heme/Onc: Recent biopsies of cystic lesions lung, weighing lung biopsy CODE STATUS: Full Subjective Principal diagnosis: Hypoxemia post thoracotomy, interstitial lung disease, MECHELLE Interval history: When seen she is sitting in bed comfortably eating breakfast. She reports she is doing well today, having less pain than yesterday as well as breathing easier. She says she has had some resolution of her nausea but still feels as if she has acid coming up when she burps/coughs. She states she is having no pain in her back last chest. She denies nausea and fever, she denies shortness of breath and chest pain, she denies weakness, but reports fatigue. Objective PUL Vital signs: Last Vital Signs Temp 98.1 F 03/31/16 07:40 Pulse 90 03/31/16 04:49 Resp 17 03/31/16 08:16 BP 148/85 03/31/16 04:49 Pulse Ox 87 L 03/31/16 08:16 General appearance: no acute distress, alert Eyes: nonicteric ENT: oropharynx moist Effort: normal Auscultation: left: wheezes (Very slight), right: rales (Middle and Lower lung craven) Cardiovascular: other (Regular rhythm, tachycardia) Integumentary: normal, other (One chest tube removed from right posterior chest , one still in place (250 mL drained, waterseal intact)) Extremities: no cyanosis, no edema, no clubbing, pink and warm, pulses normal Musculoskeletal: no deformities normal mental status, non-focal exam, pupils equal and round mood appropriate, affect normal Results - Laboratory Findings CBC and BMP: 03/31/16 03:55 03/31/16 03:55 Abnormal lab findings: Abnormal lab results WBC 15.6 K/mcL (4.3-11.1) H 03/31/16 03:55 Neutrophils # 12.4 K/mcL (1.6-8.9) H 03/30/16 04:09 Sodium 130 mEq/L (136-145) L 03/31/16 03:55 Potassium 5.5 mEq/L (3.5-4.5) H D 03/31/16 03:55 Chloride 97 mEq/L (98-109) L 03/31/16 03:55 Creatinine 1.32 mg/dL (0.57-1.11) H 03/31/16 03:55 Est GFR ( Amer) 55 (> 60) L 03/31/16 03:55 Est GFR (Non-Af Amer) 46 (> 60) L 03/31/16 03:55 Glucose 117 mg/dL (70-99) H 03/31/16 03:55 POC Glucose 101 (58-89) H 03/29/16 09:31 Calculated Osmolality 272 (280-300) L 03/31/16 03:55 Uric Acid 7.2 mg/dL (2.6-6.0) H 03/30/16 04:09 Creatine Kinase 1345 Units/L (29-168) H 03/30/16 04:09 Urine Blood Large (Negative) H 03/30/16 13:55 Ur Leukocyte Esterase Trace (Negative) H 03/30/16 13:55 Urine Microscopic RBC TNTC per hpf (0-3) H 03/30/16 13:55 Urine Microscopic WBC 5-15 per hpf (0-3) H 03/30/16 13:55 Ur Squamous Epith Cells Many per lpf (None-Few) H 03/30/16 13:55 Ur Culture Indicated? YES (NO) A 03/30/16 13:55 - Microbiology Findings Microbiology Findings: Microbiology, Last 48 Hours 03/30/16 13:55 Urine Culture - Preliminary Urine,Clean Catch No growth. - Clinical Findings Intake & Output: Intake & Output 03/30/16 03/31/16 03/31/16 23:59 07:59 15:59 Intake Total 240 / 240 50 / 50 Output Total 400 / 400 3018 / 3018 Balance -160 / -160 -2968 / -2968 Weight 115.847 kg - VTE Documentation of Mechanical Device: Intermittent pneumatic compression device Consult Discharge Plan - Plan Referrals: Mervin Santiago MD [Primary Care Provider] - <OluannSuzan irving M - Last Filed: 03/31/16 16:40> Objective PUL Vital signs: Last Vital Signs Temp 98.3 F 03/31/16 16:00 Pulse 99 03/31/16 16:00 Resp 20 03/31/16 16:00 BP 134/77 03/31/16 16:00 Pulse Ox 90 L 03/31/16 16:00 Results - Laboratory Findings CBC and BMP: 03/31/16 03:55 03/31/16 03:55 Abnormal lab findings: Abnormal lab results WBC 15.6 K/mcL (4.3-11.1) H 03/31/16 03:55 Neutrophils # 12.4 K/mcL (1.6-8.9) H 03/30/16 04:09 Sodium 130 mEq/L (136-145) L 03/31/16 03:55 Potassium 5.5 mEq/L (3.5-4.5) H D 03/31/16 03:55 Chloride 97 mEq/L (98-109) L 03/31/16 03:55 Creatinine 1.32 mg/dL (0.57-1.11) H 03/31/16 03:55 Est GFR ( Amer) 55 (> 60) L 03/31/16 03:55 Est GFR (Non-Af Amer) 46 (> 60) L 03/31/16 03:55 Glucose 117 mg/dL (70-99) H 03/31/16 03:55 POC Glucose 101 (58-89) H 03/29/16 09:31 Calculated Osmolality 272 (280-300) L 03/31/16 03:55 Uric Acid 7.2 mg/dL (2.6-6.0) H 03/30/16 04:09 Creatine Kinase 1345 Units/L (29-168) H 03/30/16 04:09 Urine Blood Large (Negative) H 03/30/16 13:55 Ur Leukocyte Esterase Trace (Negative) H 03/30/16 13:55 Urine Microscopic RBC TNTC per hpf (0-3) H 03/30/16 13:55 Urine Microscopic WBC 5-15 per hpf (0-3) H 03/30/16 13:55 Ur Squamous Epith Cells Many per lpf (None-Few) H 03/30/16 13:55 Ur Culture Indicated? YES (NO) A 03/30/16 13:55 - Microbiology Findings Microbiology Findings: Microbiology, Last 48 Hours 03/30/16 13:55 Urine Culture - Final Urine,Clean Catch No growth. - Clinical Findings Intake & Output: Intake & Output 03/31/16 03/31/16 03/31/16 07:59 15:59 23:59 Intake Total 50 / 50 1840 / 1840 450 / 450 Output Total 3018 / 3018 850 / 850 380 / 380 Balance -2968 / -2968 990 / 990 70 / 70 Weight 115.847 kg - Attending Attestation I examined this patient and my medical decision-making was reviewed with the STAKES PLAYER/PA/Advanced Practice Nurse/Resident Physician. I agree with the documented findings, disposition and treatment plan as described except to the extent set forth below. Patient seen and examined. Labs, radiology, chart personally reviewed. Agree with resident's history and physical, assessment, plan with following comments: CARD PUNCHER: Patient follows commands, Pulmonary: Acceptable oxygenation and ventilation and overall the patient is feeling better. Noninvasive ventilation when necessary. Continue current bronchodilators and systemic steroids Cardiovascular: stable GI: Nutrition per dietary and GI prophylaxis per routine Heme: DVT prophylaxis per routine ID: Continue antibiotics and plan to de-escalation Renal; urine out put and renal funtion reviewed Endorcine: blood glucose is monitored Lines: all lines checked and no evidence of infections Skin: skin care to prevent pressure ulcers per nursing routine care
[2016-03-31] MEDS ORDERED: Simethicone 80 MG TAB.CHEW PO PRN (09:03)
[2016-03-31] MEDS: MethylPREDNISolone 40 MG/ML VIAL IVP SCH ×3 (09:56→23:46)
[2016-03-31] MEDS: ARIPiprazole 10 MG TABLET PO SCH (09:59)
[2016-03-31] MEDS: *HR* OxyCODONE/APAP 5/325 TABLET PO PRN ×2 (09:59→18:23)
[2016-03-31] MEDS: 0.9 % Sodium Chloride 1,000 ML IVC SCH ×3 (10:00→23:47)
[2016-03-31] MEDS ORDERED: 0.9 % Sodium Chloride 500 ML IVC ONE (11:47)
--- NOTE | 2016-03-31 11:53 | Nephrology Progress Note ---
Date of Encounter: 03/31/16 Time of Encounter: 10:00 - Assessment and Plan (1) MECHELLE (acute kidney injury) Current Visit: Yes Status: Acute SCr remains elevated at 1.32 GFR 46 ater initial improvemt ater NS bbolus yesterday Urine sodium <20 suggesting pre-renal causes, will re bolus another 500cc NS and then start maintainence fluids at 75cc/hr Continue to avoid nephrotoxins if possible CPK noted mildly elevated, should improve with fluids Urine eosinophils negative (2) Hyperkalemia Current Visit: Yes Status: Acute Potassium still elevated at 5.5, should improve with improving clearance with fluids Renal diet advised Subjective Principal diagnosis: Hypoxemia post thoracotomy, interstitial lung disease, MECHELLE Interval history: Pt seen and examined feeling better with chest tubes removed. Po intake still poor. Objective - Vital Signs Vital signs: Vital Signs Temp Pulse Resp BP Pulse Ox 03/31/16 11:39 98.1 F 03/31/16 11:35 17 90 L 03/31/16 10:00 100 17 126/69 90 L 03/31/16 08:16 17 87 L 03/31/16 08:00 98.1 F 104 20 127/77 85 L 03/31/16 07:40 98.1 F 03/31/16 04:49 98.3 F 90 17 148/85 87 L 03/31/16 04:35 22 148/85 94 L 03/31/16 00:38 98.5 F 03/31/16 00:32 90 03/31/16 00:28 90 12 133/69 94 L 03/31/16 00:25 11 133/69 96 03/30/16 20:51 12 144/73 95 03/30/16 20:45 97.7 F 03/30/16 20:19 96 12 144/73 93 L 03/30/16 17:35 20 87 L 03/30/16 17:00 95 14 105/61 89 L 03/30/16 16:40 10 143/74 93 L 03/30/16 16:00 111 03/30/16 15:30 97.9 F 03/30/16 15:15 15 160/62 92 L 03/30/16 15:00 80 14 139/90 86 L 03/30/16 13:00 97.4 F L 79 12 151/90 93 L Intake and Output 03/30/16 03/31/16 03/31/16 23:59 07:59 15:59 Intake Total 240 / 240 50 / 50 1360 / 1360 Output Total 400 / 400 3018 / 3018 850 / 850 Balance -160 / -160 -2968 / -2968 510 / 510 Intake: IV Fluids 1000 / 1000 0.9 % Sodium Chloride 1, 1000 / 1000 000 ML @ 25 mls/hr IVC . Q24H [facility] Rx#:[id number] Oral 240 / 240 50 / 50 360 / 360 Output: Urine 100 / 100 Urethral (Ruiz) 100 / 100 Stool 0 / 0 Catheter 300 / 300 2950 / 2950 850 / 850 Chest Tube Drainage 68 / 68 0 / 0 Right Lateral Chest #1 38 / 38 0 / 0 Right Lateral Chest #2 30 / 30 Other: Meal Breakfast Percent of Meal Consumed 90% Weight 115.847 kg Patient Weight 03/31/16 23:59 Weight 115.847 kg - General Appearance General appearance: Present: well-developed, well-nourished EENT: Present: ATNC, mucous membranes dry Neck: Present: no JVD, supple Additional Comments: good areation ant with occasional crackles bilat Cardiology: Present: no edema, normal S1, normal S2 Gastrointestinal: Present: no tenderness, no guarding Integumentary: Present: warm and dry Neurologic: Present: no focal deficit Musculoskeletal: Present: no deformities Psychiatric: Present: mood/affect appropriate - Lab 04/01/16 04:05 04/01/16 04:05 Most recent lab results Calcium 8.8 mg/dL (8.6-10.8) 03/31/16 03:55 Urine Creatinine 99 mg/dL 03/30/16 13:55 Urine Sodium < 20.0 mEq/L 03/30/16 13:55 - VTE Documentation of Mechanical Device: Intermittent pneumatic compression device Consult Discharge Plan - Plan Referrals: Mervin Santiago MD [Primary Care Provider] - (SENT WEB REQUEST ON 04-01-16 0626) Ernestina Heard MD [Partnered Physician] - 04/22/16 2:20 pm
[2016-03-31] MEDS: diazePAM 5 MG TABLET PO PRN (13:41)
[2016-04-01] MEDS: Ipratropium/Albuterol Neb 3 ML IH SCH ×7 (00:08→23:10)
[2016-04-01 04:32] LABS: Basophils % 0.1 %; Hematocrit 35.3 % (35.3-44.9); Hemoglobin 11.2 g/dL (11.5-15.4); Immature Granulocytes % 0.8 % (0-4); Lymphocytes # 0.7 K/mcL (0.6-4.6); Lymphocytes % 5.8 %; Mean Corpuscular HGB Conc 31.7 g/dL (31.6-35.5); Mean Corpuscular Hemoglobin 29.4 pg (28.0-33.3); Mean Corpuscular Volume 92.7 fL (83.0-100.0); Mean Platelet Volume 9.2 fL (9.4-12.4); Monocytes # 0.3 K/mcL (0.0-1.3); Monocytes % 2.5 %; Neutrophils # 10.8 K/mcL (1.6-8.9); Platelet Count 224 K/mcL (140-400); Red Blood Count 3.81 M/mcL (3.82-4.97); Red Cell Distribution Width 13.8 % (11.5-14.5); Segmented Neutrophils % 90.8 %
[2016-04-01 04:48] LABS: BUN/Creatinine Ratio 12 (6-26); Blood Urea Nitrogen 12 mg/dL (7-20); Carbon Dioxide 27 mEq/L (19-29); Chloride 104 mEq/L (98-109); Glucose 140 mg/dL (70-99); Magnesium 2.2 mg/dL (1.6-2.6); Osmolality,Calculated 284 (280-300); Sodium 136 mEq/L (136-145); eGFR For African Americans > 60 (> 60); eGFR For Non-African Americans 60 (> 60)
[2016-04-01] MEDS: *HR* Heparin 5,000 UNIT/ML VIAL SQ SCH ×2 (06:35→21:42)
--- NOTE | 2016-04-01 07:23 | Cardiothoracic Progress Note ---
Date of Encounter: 04/01/16 Time of Encounter: 07:21 - Assessment and plan (1) Interstitial lung disease Current Visit: Yes Status: Acute The patient is recovering well from her right thoracotomy with open lung biopsy 3. The remaining chest tube was removed. Aggressive pulmonary toilet will continue. The assessment and plan as outlined above was discussed with the patient and/or family members who expressed understanding and agreement. All questions were answered. - Subjective Procedure(s) Performed: POD#3 S/P Right thoracotomy with wedge biopsy 3 Interval history: The patient is breathing comfortably. Her postoperative pain is fairly well controlled with a Dilaudid INVENTORY CONTROL CLERK. She has no complaints. Vital Signs, Last 4 Hours Temp Pulse Resp BP Pulse Ox 04/01/16 05:03 18 92 L 04/01/16 04:22 98.2 F 75 15 127/74 89 L Oxgyen Flow Rate Oxygen Flow Rate (LPM) 15 Clinical Data, last 8 Hours Output, Chest Tube Drainage 10 Amount [Right Lateral Chest #2 ] Output, Urine Amount 600 Output, Urine Amount 800 Output, Urine Amount 800 Output, Urine Amount 0 Weight 03/30/16 03/31/16 04/01/16 23:59 23:59 23:59 Weight 114.6 kg 115.847 kg 116.9 kg - Physical Examination General: Conversant, No Apparent Distress Neck: No JVD, Normal carotid pulses Cardiac: Reg Rate and Rhythm, Normal S1 and S2, No Murmur Incision: No signs of infection, Dry/intact dressing Sternum: Stable Chest tubes: Minimal drainage, Other (No air leak.) Lungs: Normal Breath Sounds, No Wheeze, Rales, Rhonchi Neuro: Alert and responsive, No focal deficits noted Vascular: Normal capillary refill Extremities: No Clubbing, No Cyanosis, No Edema, Normal Pulses - Labs 04/01/16 04:05 04/01/16 04:05 Lab Results, Last 24 hours 04/01/16 04/01/16 04:05 04:05 WBC 11.9 H Hgb 11.2 L Hct 35.3 Plt Count 224 Sodium 136 Potassium 5.0 H Chloride 104 Carbon Dioxide 27 BUN 12 Creatinine 1.04 Glucose 140 H Calcium 9.0 Magnesium 2.2 - Imaging Chest Xray: image reviewed (No pneumothorax. Bibasilar atelectasis.) - VTE Documentation of Mechanical Device: Intermittent pneumatic compression device Consult Discharge Plan - Plan Referrals: Mervin Santiago MD [Primary Care Provider] -
[2016-04-01] MEDS: ARIPiprazole 10 MG TABLET PO SCH (07:47)
[2016-04-01] MEDS: *HR* OxyCODONE/APAP 5/325 TABLET PO PRN ×4 (07:50→21:42)
[2016-04-01] MEDS: MethylPREDNISolone 40 MG/ML VIAL IVP SCH ×3 (07:51→23:57)
[2016-04-01] MEDS: Tiotropium 18 MCG inhalation IH SCH (07:56)
[2016-04-01] MEDS: 0.9 % Sodium Chloride 1,000 ML IVC SCH (13:10)
[2016-04-01] MEDS: *HR* HYDROmorphone (PF) 1 MG/ML SYRINGE IVP PRN (17:41)
--- NOTE | 2016-04-01 17:44 | Nephrology Progress Note ---
Date of Encounter: 04/01/16 Time of Encounter: 12:00 - Assessment and Plan (1) MECHELLE (acute kidney injury) Current Visit: Yes Status: Acute SCr normalized at 1.04, GFR >60 with IVF Can stop IVF and encourage po fluids (2) Hyperkalemia Current Visit: Yes Status: Acute Potassium improving at 5 with improved renal fxn Continue renal diet Subjective Principal diagnosis: Hypoxemia post thoracotomy, interstitial lung disease, MECHELLE Interval history: Pt seen and examined feeling good. No new complaints. Objective - Vital Signs Vital signs: Vital Signs Temp Pulse Resp BP Pulse Ox 04/01/16 16:01 16 89 L 04/01/16 14:06 90 04/01/16 12:00 97.9 F 82 16 146/76 04/01/16 11:14 18 88 L 04/01/16 09:30 98.1 F 75 16 126/70 04/01/16 07:57 16 92 L 04/01/16 05:03 18 92 L 04/01/16 04:22 98.2 F 75 15 127/74 89 L 04/01/16 00:08 18 93 L 03/31/16 23:46 98.0 F 89 14 117/62 92 L 03/31/16 19:55 17 88 L 03/31/16 18:15 102 20 123/77 87 L Intake and Output 04/01/16 04/01/16 04/01/16 07:59 15:59 23:59 Intake Total 240 / 240 1360 / 1360 Output Total 2220 / 2220 1350 / 1350 Balance -1979 / -1979 Intake: IV Fluids 1000 / 1000 0.9 % Sodium Chloride 1, 1000 / 1000 000 ML @ 75 mls/hr IVC . [id number] [facility] Rx#: [id number] Oral 240 / 240 360 / 360 Output: Urine 2200 / 2200 1350 / 1350 Chest Tube Drainage 20 / 20 Right Lateral Chest #2 20 / 20 Other: Meal Breakfast Percent of Meal Consumed 70% Weight 116.9 kg Patient Weight 04/01/16 23:59 Weight 116.9 kg - General Appearance General appearance: Present: well-developed, well-nourished EENT: Present: ATNC, mucous membranes moist Neck: Present: no JVD, supple Cardiology: Present: no edema, normal S1, normal S2 Gastrointestinal: Present: no tenderness, no guarding Integumentary: Present: warm and dry Neurologic: Present: no focal deficit Musculoskeletal: Present: no deformities Psychiatric: Present: mood/affect appropriate, cooperative - Lab 04/01/16 04:05 04/01/16 04:05 Most recent lab results Calcium 9.0 mg/dL (8.6-10.8) 04/01/16 04:05 Magnesium 2.2 mg/dL (1.6-2.6) 04/01/16 04:05 Urine Creatinine 99 mg/dL 03/30/16 13:55 Urine Sodium < 20.0 mEq/L 03/30/16 13:55 - VTE Documentation of Mechanical Device: Intermittent pneumatic compression device Consult Discharge Plan - Plan Referrals: Mervin Santiago MD [Primary Care Provider] - (SENT WEB REQUEST ON 04-01-16 [id number]) Ernestina Heard MD [Partnered Physician] - 04/22/16 2:20 pm
[2016-04-02] MEDS: *HR* OxyCODONE/APAP 5/325 TABLET PO PRN ×5 (02:22→19:48)
[2016-04-02] MEDS: Ipratropium/Albuterol Neb 3 ML IH SCH ×5 (03:40→20:37)
[2016-04-02] MEDS: *HR* Heparin 5,000 UNIT/ML VIAL SQ SCH ×2 (06:04→17:24)
--- NOTE | 2016-04-02 07:29 | Cardiothoracic Progress Note ---
Date of Encounter: 04/02/16 Time of Encounter: 07:27 - Assessment and plan (1) Interstitial lung disease Current Visit: Yes Status: Acute The patient is recovering well from her right thoracotomy with open lung biopsy 3. Aggressive pulmonary toilet will continue. I have consulted her business applications analyst for recommendations regarding oxygen weaning. The pathology is pending. The assessment and plan as outlined above was discussed with the patient and/or family members who expressed understanding and agreement. All questions were answered. - Subjective Procedure(s) Performed: POD#4 S/P Right thoracotomy with wedge biopsy 3 Interval history: The patient is breathing comfortably. Her postoperative pain is fairly well controlled with a Dilaudid [employer] RENTAL MANAGER. She has no complaints. Vital Signs, Last 4 Hours Temp Pulse Resp BP Pulse Ox 04/02/16 07:09 97.1 F L 61 18 139/83 90 L 04/02/16 04:55 97.2 F L 67 18 134/80 90 L 04/02/16 03:58 73 04/02/16 03:56 97.6 F 73 12 135/80 91 L 04/02/16 03:41 18 91 L Oxgyen Flow Rate Oxygen Flow Rate (LPM) 10 Clinical Data, last 8 Hours Output, Urine Amount 600 Weight 03/31/16 04/01/16 04/02/16 23:59 23:59 23:59 Weight 115.847 kg 116.9 kg 116.5 kg - Physical Examination General: Conversant, No Apparent Distress Neck: No JVD, Normal carotid pulses Cardiac: Reg Rate and Rhythm, Normal S1 and S2, No Murmur Incision: No signs of infection, Dry/intact dressing Lungs: Normal Breath Sounds Neuro: Alert and responsive, No focal deficits noted Vascular: Normal capillary refill Extremities: No Clubbing, No Cyanosis, No Edema - Labs 04/01/16 04:05 04/01/16 04:05 - Imaging Chest Xray: image reviewed (Possible right apical pneumothorax, decreased in size. Bibasilar atelectasis.) - VTE Documentation of Mechanical Device: Intermittent pneumatic compression device Consult Discharge Plan - Plan Referrals: Mervin Santiago MD [Primary Care Provider] - (SENT WEB REQUEST ON 04-01-16 [id number]) Ernestina Heard MD [Partnered Physician] - 04/22/16 2:20 pm
[2016-04-02] MEDS: Tiotropium 18 MCG inhalation IH SCH (07:31)
[2016-04-02] MEDS: Budesonide/Formoterol 160/4.5 MDI IH SCH ×2 (07:55→20:37)
--- NOTE | 2016-04-02 08:06 | Pulmonology Progress Note ---
Date of Encounter: 04/02/16 Time of Encounter: 07:45 Assessment and Plan (1) Acute and chronic respiratory failure with hypoxia Current Visit: Yes Status: Acute This is from her underlying lung disease as well as atelectasis postoperatively. Encouraged patient to do incentive spirometry as much as possible and mobilization would be important. Also added Symbicort to her current treatment. Lung biopsies pending and knowing that disease would be important to treat patient will contact pathology to follow-up on the result of the lung biopsy. (2) Atelectasis of both lungs Current Visit: Yes Status: Acute Incentive spirometry (3) COPD (chronic obstructive pulmonary disease) Current Visit: Yes Status: Chronic Continue bronchodilators and Symbicort as I mentioned above. I feel she will improve gradually and to wean off oxygen as tolerated to keep SPO2 90%. Qualifiers: COPD type: unspecified COPD Qualified Code(s): J44.9 - Chronic obstructive pulmonary disease, unspecified Subjective Principal diagnosis: Hypoxemia post thoracotomy, interstitial lung disease, MECHELLE Interval history: Patient generally feeling better, however she still requiring oxygen requirement Objective PUL Vital signs: Last Vital Signs Temp 97.1 F L 04/02/16 07:09 Pulse 61 04/02/16 07:09 Resp 16 04/02/16 07:55 BP 139/83 04/02/16 07:09 Pulse Ox 89 L 04/02/16 07:55 General appearance: no acute distress Eyes: nonicteric ENT: oropharynx dry Neck: supple, no lymphadenopathy Effort: normal Auscultation: bilateral: diminished breath sounds Percussion: bilateral: not dull Cardiovascular: regular rate and rhythm Gastrointestinal: normoactive bowel sounds Extremities: edema normal mental status, non-focal exam mood appropriate Results - Laboratory Findings CBC and BMP: 04/01/16 04:05 04/01/16 04:05 Abnormal lab findings: Abnormal lab results WBC 11.9 K/mcL (4.3-11.1) H 04/01/16 04:05 RBC 3.81 M/mcL (3.82-4.97) L 04/01/16 04:05 Hgb 11.2 g/dL (11.5-15.4) L 04/01/16 04:05 MPV 9.2 fL (9.4-12.4) L 04/01/16 04:05 Neutrophils # 10.8 K/mcL (1.6-8.9) H 04/01/16 04:05 Potassium 5.0 mEq/L (3.5-4.5) H 04/01/16 04:05 Glucose 140 mg/dL (70-99) H 04/01/16 04:05 POC Glucose 101 (58-89) H 03/29/16 09:31 Uric Acid 7.2 mg/dL (2.6-6.0) H 03/30/16 04:09 Creatine Kinase 1345 Units/L (29-168) H 03/30/16 04:09 Urine Blood Large (Negative) H 03/30/16 13:55 Ur Leukocyte Esterase Trace (Negative) H 03/30/16 13:55 Urine Microscopic RBC TNTC per hpf (0-3) H 03/30/16 13:55 Urine Microscopic WBC 5-15 per hpf (0-3) H 03/30/16 13:55 Ur Squamous Epith Cells Many per lpf (None-Few) H 03/30/16 13:55 Ur Culture Indicated? YES (NO) A 03/30/16 13:55 - Microbiology Findings Microbiology Findings: Microbiology, Last 48 Hours 03/30/16 13:55 Urine Culture - Final Urine,Clean Catch No growth. - Diagnostic Findings Chest x-ray: report reviewed, image reviewed - Clinical Findings Intake & Output: Intake & Output 04/01/16 04/02/16 04/02/16 23:59 07:59 15:59 Intake Total 800 / 800 370 / 370 Output Total 550 / 550 600 / 600 Balance 250 / 250 -230 / -230 Weight 116.5 kg - VTE Documentation of Mechanical Device: Intermittent pneumatic compression device Consult Discharge Plan - Plan Referrals: Mervin Santiago MD [Primary Care Provider] - (SENT WEB REQUEST ON 04-01-16 [id number]) Ernestina Heard MD [Partnered Physician] - 04/22/16 2:20 pm
[2016-04-02] MEDS: MethylPREDNISolone 40 MG/ML VIAL IVP SCH ×3 (08:09→23:40)
[2016-04-02] MEDS: ARIPiprazole 10 MG TABLET PO SCH (08:09)
[2016-04-02] MEDS: diazePAM 5 MG TABLET PO PRN (12:45)
[2016-04-03] MEDS: Ipratropium/Albuterol Neb 3 ML IH SCH ×7 (00:07→23:50)
[2016-04-03] MEDS: *HR* OxyCODONE/APAP 5/325 TABLET PO PRN ×5 (02:43→20:54)
[2016-04-03] MEDS: diazePAM 5 MG TABLET PO PRN ×2 (03:28→18:25)
[2016-04-03] MEDS: *HR* Heparin 5,000 UNIT/ML VIAL SQ SCH ×2 (06:31→18:25)
--- NOTE | 2016-04-03 07:17 | Cardiothoracic Progress Note ---
Date of Encounter: 04/03/16 Time of Encounter: 07:15 - Assessment and plan (1) Interstitial lung disease Current Visit: Yes Status: Acute The patient is recovering well from her right thoracotomy with open lung biopsy 3. Aggressive pulmonary toilet will continue. The pathology is pending. The assessment and plan as outlined above was discussed with the patient and/or family members who expressed understanding and agreement. All questions were answered. - Subjective Procedure(s) Performed: POD#5 S/P Right thoracotomy with wedge biopsy 3 Interval history: The patient is breathing comfortably. Her postoperative pain is fairly well controlled. She has no complaints. Vital Signs, Last 4 Hours Temp Pulse Resp BP Pulse Ox 04/03/16 03:38 18 87 L 04/03/16 03:20 97.9 F 69 20 148/84 90 L Oxgyen Flow Rate Oxygen Flow Rate (LPM) 12 Clinical Data, last 8 Hours Output, Urine Amount 700 Output, Urine Amount 800 Output, Urine Amount 700 Weight 04/01/16 04/02/16 04/03/16 23:59 23:59 23:59 Weight 116.9 kg 116.5 kg 116.9 kg - Physical Examination General: Conversant, No Apparent Distress Neck: No JVD, Normal carotid pulses Cardiac: Reg Rate and Rhythm, Normal S1 and S2, No Murmur Incision: No signs of infection, Dry/intact dressing Lungs: Other (Rhonchi and wheezes bilaterally.) Neuro: Alert and responsive, No focal deficits noted Vascular: Normal capillary refill Extremities: No Clubbing, No Cyanosis, No Edema - Labs 04/01/16 04:05 04/01/16 04:05 - Imaging Chest Xray: image reviewed (Right apical pneumothorax. Increased right lateral chest wall subcutaneous emphysema.) - VTE Documentation of Mechanical Device: Intermittent pneumatic compression device Consult Discharge Plan - Plan Referrals: Mervin Santiago MD [Primary Care Provider] - 04/08/16 1:15 pm () Ernestina Heard MD [Partnered Physician] - 04/22/16 2:20 pm
[2016-04-03] MEDS: Budesonide/Formoterol 160/4.5 MDI IH SCH ×2 (07:31→19:54)
[2016-04-03] MEDS: Tiotropium 18 MCG inhalation IH SCH (07:32)
[2016-04-03] MEDS: MethylPREDNISolone 40 MG/ML VIAL IVP SCH ×3 (08:07→23:57)
[2016-04-03] MEDS: ARIPiprazole 10 MG TABLET PO SCH (08:07)
[2016-04-04] MEDS: *HR* OxyCODONE/APAP 5/325 TABLET PO PRN ×6 (01:13→21:02)
[2016-04-04] MEDS: Ipratropium/Albuterol Neb 3 ML IH SCH ×5 (03:34→20:42)
[2016-04-04] MEDS: *HR* Heparin 5,000 UNIT/ML VIAL SQ SCH ×2 (06:17→19:00)
[2016-04-04] MEDS: Budesonide/Formoterol 160/4.5 MDI IH SCH ×2 (07:56→20:42)
[2016-04-04] MEDS: Tiotropium 18 MCG inhalation IH SCH (07:57)
[2016-04-04] MEDS: ARIPiprazole 10 MG TABLET PO SCH (08:06)
[2016-04-04] MEDS: MethylPREDNISolone 40 MG/ML VIAL IVP SCH ×2 (08:07→15:42)
--- NOTE | 2016-04-04 08:34 | Cardiothoracic Progress Note ---
Date of Encounter: 04/04/16 Time of Encounter: 08:32 - Assessment and plan (1) Interstitial lung disease Current Visit: Yes Status: Acute The patient is recovering well from her right thoracotomy with open lung biopsy 3. Her oxygen requirement is decreasing and currently she is on 8 L/m via nasal cannula. Aggressive pulmonary toilet will continue. The pathology is pending. The assessment and plan as outlined above was discussed with the patient and/or family members who expressed understanding and agreement. All questions were answered. - Subjective Procedure(s) Performed: POD#6 S/P Right thoracotomy with wedge biopsy 3 Interval history: The patient is breathing comfortably. Her postoperative pain is fairly well controlled. She has no complaints. Vital Signs, Last 4 Hours Pulse 04/04/16 08:25 89 04/04/16 05:17 72 Oxgyen Flow Rate Oxygen Flow Rate (LPM) 8 Clinical Data, last 8 Hours Output, Urine Amount 900 Output, Urine Amount 850 Output, Urine Amount 900 Weight 04/02/16 04/03/16 04/04/16 23:59 23:59 23:59 Weight 116.5 kg 116.9 kg 117.6 kg - Physical Examination General: Conversant, No Apparent Distress Neck: No JVD, Normal carotid pulses Cardiac: Reg Rate and Rhythm, Normal S1 and S2, No Murmur Incision: No signs of infection, Dry/intact dressing Lungs: Normal Breath Sounds, No Wheeze, Rales, Rhonchi Neuro: Alert and responsive, No focal deficits noted Vascular: Normal capillary refill Extremities: No Clubbing, No Cyanosis, No Edema - Labs 04/01/16 04:05 04/01/16 04:05 - Imaging Chest Xray: image reviewed (Right apical pneumothorax, decreased in size. Subcutaneous emphysema and right chest wall and right neck, unchanged.) - VTE Documentation of Mechanical Device: Intermittent pneumatic compression device Consult Discharge Plan - Plan Referrals: Mervin Santiago MD [Primary Care Provider] - 04/08/16 1:15 pm () Ernestina Heard MD [Partnered Physician] - 04/22/16 2:20 pm
[2016-04-04] MEDS: Nystatin SUSP 5 ML UD.LIQ BC SCH ×4 (09:18→19:54)
--- NOTE | 2016-04-04 11:59 | Pulmonology Progress Note ---
Date of Encounter: 04/04/16 Time of Encounter: 10:25 Assessment and Plan (1) Acute and chronic respiratory failure with hypoxia Current Visit: Yes Status: Acute This is from her underlying lung disease as well as atelectasis postoperatively. Encouraged patient to do incentive spirometry as much as possible and mobilization would be important. Also added Symbicort to her current treatment. Lung biopsies pending and knowing that disease would be important to treat patient will contact pathology to follow-up on the result of the lung biopsy. 04/04 patient generally feeling better now and continue wean off FIO2 as tolerated to keep SPO2 around 90% (2) Atelectasis of both lungs Current Visit: Yes Status: Acute Incentive spirometry (3) COPD (chronic obstructive pulmonary disease) Current Visit: Yes Status: Chronic Continue bronchodilators and Symbicort, patient is on systemic steroid for possible AECOPD/NSIP. Final biopsy result is still pending. Qualifiers: COPD type: unspecified COPD Qualified Code(s): J44.9 - Chronic obstructive pulmonary disease, unspecified Subjective Principal diagnosis: Hypoxemia post thoracotomy, interstitial lung disease, MECHELLE Interval history: Patient generally feeling better, and her O2 need is less at 8 LPM high flow. Objective PUL Vital signs: Last Vital Signs Temp 97.0 F L 04/04/16 03:20 Pulse 74 04/04/16 08:25 Resp 20 04/04/16 08:25 BP 155/90 04/04/16 08:25 Pulse Ox 95 04/04/16 08:25 General appearance: no acute distress, alert Eyes: nonicteric ENT: oropharynx dry Neck: supple, no lymphadenopathy, no JVD Effort: normal, other (sugical site in the left side with subcutaneous emphysema ) Auscultation: bilateral: rhonchi Cardiovascular: regular rate and rhythm Gastrointestinal: normoactive bowel sounds, soft, non-distended Extremities: no cyanosis, edema normal mental status, non-focal exam mood appropriate Results - Laboratory Findings CBC and BMP: 04/01/16 04:05 04/01/16 04:05 Abnormal lab findings: Abnormal lab results WBC 11.9 K/mcL (4.3-11.1) H 04/01/16 04:05 RBC 3.81 M/mcL (3.82-4.97) L 04/01/16 04:05 Hgb 11.2 g/dL (11.5-15.4) L 04/01/16 04:05 MPV 9.2 fL (9.4-12.4) L 04/01/16 04:05 Neutrophils # 10.8 K/mcL (1.6-8.9) H 04/01/16 04:05 Potassium 5.0 mEq/L (3.5-4.5) H 04/01/16 04:05 Glucose 140 mg/dL (70-99) H 04/01/16 04:05 POC Glucose 101 (58-89) H 03/29/16 09:31 Uric Acid 7.2 mg/dL (2.6-6.0) H 03/30/16 04:09 Creatine Kinase 1345 Units/L (29-168) H 03/30/16 04:09 Urine Blood Large (Negative) H 03/30/16 13:55 Ur Leukocyte Esterase Trace (Negative) H 03/30/16 13:55 Urine Microscopic RBC TNTC per hpf (0-3) H 03/30/16 13:55 Urine Microscopic WBC 5-15 per hpf (0-3) H 03/30/16 13:55 Ur Squamous Epith Cells Many per lpf (None-Few) H 03/30/16 13:55 Ur Culture Indicated? YES (NO) A 03/30/16 13:55 - Diagnostic Findings Chest x-ray: report reviewed, image reviewed - Clinical Findings Intake & Output: Intake & Output 04/03/16 04/04/16 04/04/16 23:59 07:59 15:59 Intake Total 820 / 820 1040 / 1040 597 / 597 Output Total 2800 / 2800 3350 / 3350 1000 / 1000 Balance -1979 / -1979 -2310 / -2310 -403 / -403 Weight 117.6 kg - VTE Documentation of Mechanical Device: Intermittent pneumatic compression device Consult Discharge Plan - Plan Referrals: Mervin Santiago MD [Primary Care Provider] - 04/08/16 1:15 pm () Ernestina Heard MD [Partnered Physician] - 04/22/16 2:20 pm
[2016-04-04] MEDS: diazePAM 5 MG TABLET PO PRN ×2 (13:56→21:02)
[2016-04-04] MEDS: Ibuprofen 400 MG TABLET PO PRN (17:03)
[2016-04-04] MEDS: *HR* HYDROmorphone (PF) 1 MG/ML SYRINGE IVP PRN (21:41)
--- NOTE | 2016-04-04 21:47 | Operative Note ---
Date of procedure: 04/04/16 Pre-op diagnosis: Right pneumothorax with subcutaneous emphysema Post-op diagnosis: same Procedure: 1. Right chest tube insertion (28 Stateless) Implants: 1. Chest tube (28 Stateless) Complications: None. Anesthesia: local Local Anesthetics: 1% Lidocaine HCL SubQ (cc) (10) Surgeon: Ernestina Heard Estimated blood loss (cc): 10 Specimen: None. Condition: stable Disposition: floor Procedure in Detail: INDICATIONS FOR PROCEDURE: The patient is a 35-year-old lady with interstitial lung disease who underwent a right thoracotomy with open lung biopsy 3 on Tuesday, March 29, 2016. Her postoperative course was uncomplicated and the chest tubes removed on POD#2. She has required excessive amounts of supplemental oxygen (15 L/m) in order to maintain adequate saturations. This has been weaned over several days and she was on 8 L/m is morning. Serial chest x-rays have shown subcutaneous emphysema and a small right apical pneumothorax this morning. This afternoon the patient began developing subcutaneous emphysema with facial swelling on her left side. This progressed and a repeat chest x-ray was ordered. The most recent chest x- ray showed a 2-3 cm right apical pneumothorax. A chest tube will be inserted to eliminate the pneumothorax. FINDINGS AT PROCEDURE: The patient had a large amount of air which was expelled when the right hemithorax was entered. Digital palpation of the entrance into the right pleural space revealed no lung adherent to the chest wall. DESCRIPTION OF PROCEDURE: After obtaining informed consent from the patient, she was placed in the left lateral decubitus position and her hospital bed. Her right lateral chest was prepped and draped in a sterile fashion. A lower intercostal space in the midaxillary line was anesthetized with lidocaine 1% without epinephrine. An incision was then made through the skin and subcutaneous tissue and blunt hemostat dissection was used to locate the intercostal space. The intercostal muscles and the parietal pleura with an elasticized with additional lidocaine 1% without epinephrine. The intercostal space was entered allowing for the escape of a large amount of air. Digital palpation revealed no adhesions between the lung and the chest wall. A 28 Stateless chest tube was then inserted posteriorly; however, could only be advanced 10 cm without encountering resistance. Several attempts were made to reposition the tube however these were unsuccessful in advancing the tube more than 10 cm. The chest tube was inserted to the chest wall. Sterile dressings were applied. Chest x-ray was ordered and is pending at time of dictation. There were no procedure complications.
[2016-04-05] MEDS: MethylPREDNISolone 40 MG/ML VIAL IVP SCH ×4 (00:02→23:53)
[2016-04-05] MEDS: Ipratropium/Albuterol Neb 3 ML IH SCH ×6 (01:26→20:21)
[2016-04-05] MEDS: *HR* OxyCODONE/APAP 5/325 TABLET PO PRN ×6 (01:54→21:51)
[2016-04-05 04:17] LABS: Calcium 8.8 mg/dL (8.6-10.8)
[2016-04-05 04:21] LABS: Potassium 4.7 mEq/L (3.5-4.5)
[2016-04-05] MEDS: diazePAM 5 MG TABLET PO PRN (05:37)
[2016-04-05] MEDS: Ibuprofen 400 MG TABLET PO PRN (05:41)
[2016-04-05] MEDS: *HR* Heparin 5,000 UNIT/ML VIAL SQ SCH ×2 (06:11→18:01)
[2016-04-05] MEDS: Nystatin SUSP 5 ML UD.LIQ BC SCH ×4 (07:32→19:44)
[2016-04-05] MEDS: ARIPiprazole 10 MG TABLET PO SCH (07:32)
[2016-04-05] MEDS: Budesonide/Formoterol 160/4.5 MDI IH SCH ×2 (07:54→20:21)
[2016-04-05] MEDS: Tiotropium 18 MCG inhalation IH SCH (07:54)
--- NOTE | 2016-04-05 12:38 | Pulmonology Progress Note ---
Date of Encounter: 04/05/16 Time of Encounter: 12:35 Assessment and Plan (1) Interstitial lung disease Current Visit: Yes Status: Acute The patient reportedly underwent lung biopsy further evaluation of interstitial lung disease. Pathology repor from that biopsy is still pending Chest tube management for cardiothoracic surgery service. Code(s): J84.9 - Interstitial pulmonary disease, unspecified SNOMED Code(s): 001417767, [id number] Subjective Principal diagnosis: Hypoxemia post thoracotomy, interstitial lung disease, MECHELLE Interval history: She underwent an open lung biopsy Tuesday of last week for evaluation of interstitial lung disease (known emphysema as well) and developed recurrent pneumothorax and subcutaneous emphysema on the necessitating replacement of chest tube by Dr. Heard. Currently, patient notes improvement of breathlessness requires low-flow supplemental oxygen to maintain acceptable saturation values. Cutaneous emphysema over the face and neck area has improved. The patient denies any other specific complaints. Objective PUL Vital signs: Last Vital Signs Temp 98.2 F 04/05/16 11:36 Pulse 101 04/05/16 11:36 Resp 18 04/05/16 11:36 BP 133/70 04/05/16 11:36 Pulse Ox 93 L 04/05/16 11:20 General appearance: no acute distress, other (Obese female) Eyes: nonicteric ENT: oropharynx moist, other (Epicutaneous emphysema mainly over the left orbital region.) Neck: other (Subcutaneous air over the neck region to palpation) Auscultation: bilateral: diminished breath sounds (Chest tube right hemithorax without air leak.) Cardiovascular: regular rate and rhythm Gastrointestinal: normoactive bowel sounds Integumentary: normal Extremities: no cyanosis Musculoskeletal: no deformities Gait: normal posture normal mental status, non-focal exam Results - Laboratory Findings CBC and BMP: 04/01/16 04:05 04/05/16 03:38 Abnormal lab findings: Abnormal lab results WBC 11.9 K/mcL (4.3-11.1) H 04/01/16 04:05 RBC 3.81 M/mcL (3.82-4.97) L 04/01/16 04:05 Hgb 11.2 g/dL (11.5-15.4) L 04/01/16 04:05 MPV 9.2 fL (9.4-12.4) L 04/01/16 04:05 Neutrophils # 10.8 K/mcL (1.6-8.9) H 04/01/16 04:05 Sodium 134 mEq/L (136-145) L 04/05/16 03:38 Potassium 4.7 mEq/L (3.5-4.5) H 04/05/16 03:38 BUN 23 mg/dL (7-20) H 04/05/16 03:38 Creatinine 1.41 mg/dL (0.57-1.11) H 04/05/16 03:38 Est GFR ( Amer) 51 (> 60) L 04/05/16 03:38 Est GFR (Non-Af Amer) 42 (> 60) L 04/05/16 03:38 Glucose 120 mg/dL (70-99) H 04/05/16 03:38 POC Glucose 101 (58-89) H 03/29/16 09:31 Uric Acid 7.2 mg/dL (2.6-6.0) H 03/30/16 04:09 Creatine Kinase 1345 Units/L (29-168) H 03/30/16 04:09 Urine Blood Large (Negative) H 03/30/16 13:55 Ur Leukocyte Esterase Trace (Negative) H 03/30/16 13:55 Urine Microscopic RBC TNTC per hpf (0-3) H 03/30/16 13:55 Urine Microscopic WBC 5-15 per hpf (0-3) H 03/30/16 13:55 Ur Squamous Epith Cells Many per lpf (None-Few) H 03/30/16 13:55 Ur Culture Indicated? YES (NO) A 03/30/16 13:55 - Clinical Findings Intake & Output: Intake & Output 04/04/16 04/05/16 04/05/16 23:59 07:59 15:59 Intake Total 240 / 240 480 / 480 Output Total 700 / 700 1200 / 1200 1828 / 1828 Balance -700 / -700 -960 / -960 -1348 / -1348 Weight 116.8 kg - VTE Documentation of Mechanical Device: Intermittent pneumatic compression device Consult Discharge Plan - Plan Referrals: Mervin Santiago MD [Primary Care Provider] - 04/13/16 9:45 am () Ernestina Heard MD [Partnered Physician] - 04/22/16 2:20 pm
--- NOTE | 2016-04-05 16:03 | Cardiothoracic Progress Note ---
Date of Encounter: 04/05/16 Time of Encounter: 16:01 - Assessment and plan (1) Acute and chronic respiratory failure with hypoxia Current Visit: Yes Status: Acute The assessment and plan as outlined above was discussed with the patient and/or family members who expressed understanding and agreement. All questions were answered. We will maintain chest tube suction. The chest tube was placed yesterday and will need to remain until the air leak stops. - Subjective Interval history: The patient has no specific complaints. She has mild incisional pain and pain around her chest tube. Vital Signs, Last 4 Hours Temp Pulse Resp BP Pulse Ox 04/05/16 15:44 78 17 93 L 04/05/16 15:03 98.1 F 80 16 127/71 91 L Oxgyen Flow Rate Oxygen Flow Rate (LPM) 15 Clinical Data, last 8 Hours Output, Chest Tube Drainage 14 Amount [Right Lateral Chest #3 ] Output, Chest Tube Drainage 14 Amount [Right Lateral Chest #3 ] Output, Urine Amount 1,700 Output, Urine Amount 800 Output, Urine Amount 1,000 Weight 04/03/16 04/04/16 04/05/16 23:59 23:59 23:59 Weight 116.9 kg 117.6 kg 116.8 kg She does have crepitus. Her left eye is partially swollen shut. Lungs are clear to percussion and auscultation. Heart is in a regular rate and rhythm. Her chest tube has minimal drainage, but does have an air leak. - Labs 04/01/16 04:05 04/05/16 03:38 Lab Results, Last 24 hours 04/05/16 03:38 Sodium 134 L Potassium 4.7 H Chloride 100 Carbon Dioxide 23 BUN 23 H Creatinine 1.41 H Glucose 120 H Calcium 8.8 - VTE Documentation of Mechanical Device: Intermittent pneumatic compression device Consult Discharge Plan - Plan Referrals: Mervin Santiago MD [Primary Care Provider] - 04/13/16 9:45 am () Ernestina Heard MD [Partnered Physician] - 04/22/16 2:20 pm
[2016-04-05] MEDS: *HR* HYDROmorphone (PF) 1 MG/ML SYRINGE IVP PRN (18:26)
--- NOTE | 2016-04-05 18:36 | Nephrology Progress Note ---
Date of Encounter: 04/05/16 Time of Encounter: 18:35 - Assessment and Plan (1) MECHELLE (acute kidney injury) Current Visit: Yes Status: Acute Patient's creatinine is rising again. This is likely secondary from her volume negative status that is a result of post ATN diuresis. While this should self correct she would benefit from short term gentle fluids. Subjective Principal diagnosis: Hypoxemia post thoracotomy, interstitial lung disease, MECHELLE Interval history: Patient seen and evaluated. Chest tube in place. She reports that she is feeling better with improvement in her breathing. She is urinating a lot. ROS otherwise stable. Objective - Vital Signs Vital signs: Vital Signs Temp Pulse Resp BP Pulse Ox 04/05/16 15:44 78 17 93 L 04/05/16 15:03 98.1 F 80 16 127/71 91 L 04/05/16 11:36 98.2 F 101 18 133/70 04/05/16 11:20 17 93 L 04/05/16 11:04 78 04/05/16 09:05 78 04/05/16 07:56 17 95 04/05/16 07:53 98.0 F 18 135/78 04/05/16 05:06 98.3 F 76 16 135/81 93 L 04/05/16 04:57 24 90 L 04/05/16 04:35 72 04/05/16 01:26 18 94 L 04/05/16 00:09 98.3 F 90 16 139/85 91 L 04/04/16 23:50 90 04/04/16 20:42 18 91 L 04/04/16 20:11 77 04/04/16 19:55 98.2 F 84 12 149/89 91 L 04/04/16 19:08 97.8 F 79 18 151/92 89 L Intake and Output 04/05/16 04/05/16 04/05/16 07:59 15:59 23:59 Intake Total 240 / 240 720 / 720 240 / 240 Output Total 1200 / 1200 3528 / 3528 Balance -960 / -960 -2808 / -2808 240 / 240 Intake: Oral 240 / 240 720 / 720 240 / 240 Output: Urine 400 / 400 3500 / 3500 Catheter 800 / 800 Chest Tube Drainage Right Lateral Chest #3 Other: Meal Breakfast Lunch Dinner Percent of Meal Consumed 100% 90% Weight 116.8 kg Patient Weight 04/05/16 23:59 Weight 116.8 kg - General Appearance General appearance: Present: well-developed, well-nourished EENT: Present: ATNC Neck: Present: supple Respiratory: Present: clear Cardiology: Present: no edema Gastrointestinal: Present: normoactive bowel sounds, no tenderness Integumentary: Present: warm and dry Neurologic: Present: alert and oriented x3 Musculoskeletal: Present: no cyanosis Psychiatric: Present: mood/affect appropriate - Lab 04/01/16 04:05 04/05/16 03:38 Most recent lab results Calcium 8.8 mg/dL (8.6-10.8) 04/05/16 03:38 Magnesium 2.2 mg/dL (1.6-2.6) 04/01/16 04:05 Urine Creatinine 99 mg/dL 03/30/16 13:55 Urine Sodium < 20.0 mEq/L 03/30/16 13:55 - VTE Documentation of Mechanical Device: Intermittent pneumatic compression device Consult Discharge Plan - Plan Referrals: Mervin Santiago MD [Primary Care Provider] - 04/13/16 9:45 am () Ernestina Heard MD [Partnered Physician] - 04/22/16 2:20 pm
[2016-04-06] MEDS: Ipratropium/Albuterol Neb 3 ML IH SCH ×7 (00:20→23:30)
[2016-04-06] MEDS: *HR* OxyCODONE/APAP 5/325 TABLET PO PRN ×5 (02:52→20:02)
[2016-04-06] MEDS ORDERED: 0.9 % Sodium Chloride 500 ML IVC SCH (06:00)
[2016-04-06] MEDS: Nystatin SUSP 5 ML UD.LIQ BC SCH ×4 (07:17→19:59)
[2016-04-06] MEDS: ARIPiprazole 10 MG TABLET PO SCH (07:17)
[2016-04-06] MEDS: MethylPREDNISolone 40 MG/ML VIAL IVP SCH ×3 (07:17→23:33)
[2016-04-06] MEDS: *HR* Heparin 5,000 UNIT/ML VIAL SQ SCH ×2 (07:18→17:41)
[2016-04-06] MEDS: Budesonide/Formoterol 160/4.5 MDI IH SCH ×2 (07:58→19:44)
[2016-04-06] MEDS: Tiotropium 18 MCG inhalation IH SCH (08:00)
--- NOTE | 2016-04-06 08:20 | Cardiothoracic Progress Note ---
Date of Encounter: 04/06/16 Time of Encounter: 08:18 - Assessment and plan (1) Acute and chronic respiratory failure with hypoxia Current Visit: Yes Status: Acute We will maintain chest tube suction. - Subjective Interval history: The patient has no complaints and states that her left eye is less swollen. Vital Signs, Last 4 Hours Temp Pulse Resp BP Pulse Ox 04/06/16 07:40 65 04/06/16 07:21 97.5 F L 86 18 145/84 94 L 04/06/16 05:00 97.8 F 94 16 125/83 94 L 04/06/16 04:47 18 135/85 92 L 04/06/16 04:45 20 92 L Oxgyen Flow Rate Oxygen Flow Rate (LPM) 15 Clinical Data, last 8 Hours Output, Chest Tube Drainage 5 Amount [Right Lateral Chest #3 ] Output, Urine Amount 500 Output, Urine Amount 450 Output, Urine Amount 550 Output, Urine Amount 400 Weight 04/04/16 04/05/16 04/06/16 23:59 23:59 23:59 Weight 117.6 kg 116.8 kg 67.2 kg Lungs are clear to percussion and auscultation. Heart is in a normal sinus rhythm. Her incision is healing well without signs of infection. Chest tubes had minimal drainage. There is a small air leak with cough. Chest x-ray reveals a small right basilar pneumothorax. Her crepitus and subcutaneous emphysema are improving. - Labs 04/01/16 04:05 04/05/16 03:38 - VTE Documentation of Mechanical Device: Intermittent pneumatic compression device Consult Discharge Plan - Plan Referrals: Mervin Santiago MD [Primary Care Provider] - 04/13/16 9:45 am () Ernestina Heard MD [Partnered Physician] - 04/22/16 2:20 pm
--- NOTE | 2016-04-06 10:03 | Nephrology Progress Note ---
Date of Encounter: 04/06/16 Time of Encounter: 10:01 - Assessment and Plan (1) MECHELLE (acute kidney injury) Current Visit: Yes Status: Acute Cr 1.14, GFR 54 today, which is improved and progressing toward baseline. Plan: -Will stop IVF today. -Encouraged the patient to continue with adequate oral hydration. -Recheck BMP tomorrow, but expect continued improvement. Subjective Principal diagnosis: Hypoxemia post thoracotomy, interstitial lung disease, MECHELLE Interval history: Ms. Monet states that she is feeling well today. She states she has been drinking 2-3 of the patient water jugs daily. She states she is urinating frequently and denies dysuria. States SOB improving, chest tube is in place. Objective - Vital Signs Vital signs: Vital Signs Temp Pulse Resp BP Pulse Ox 04/06/16 07:59 16 96 04/06/16 07:40 65 04/06/16 07:21 97.5 F L 86 18 145/84 94 L 04/06/16 05:00 97.8 F 94 16 125/83 94 L 04/06/16 04:47 18 135/85 92 L 04/06/16 04:45 20 92 L 04/06/16 04:04 68 04/06/16 00:52 98.3 F 82 17 129/71 96 04/06/16 00:20 24 94 L 04/05/16 23:45 71 04/05/16 21:46 97.8 F 87 16 141/82 90 L 04/05/16 20:21 24 88 L 04/05/16 19:30 95 04/05/16 15:44 78 17 93 L 04/05/16 15:03 98.1 F 80 16 127/71 91 L 04/05/16 11:36 98.2 F 101 18 133/70 04/05/16 11:20 17 93 L 04/05/16 11:04 78 Intake and Output 04/05/16 04/06/16 04/06/16 23:59 07:59 15:59 Intake Total 790 / 790 1787 / 1787 240 / 240 Output Total 667 / 667 1905 / 1905 500 / 500 Balance 123 / 123 -118 / -118 -260 / -260 Intake: Oral 790 / 790 1787 / 1787 240 / 240 Output: Urine 650 / 650 1900 / 1900 500 / 500 Chest Tube Drainage 5 Right Lateral Chest #3 5 Other: Meal Dinner Breakfast Percent of Meal Consumed 90% 100% Weight 67.2 kg Patient Weight 04/06/16 23:59 Weight 67.2 kg - General Appearance General appearance: Present: well-developed, well-nourished, obese EENT: Present: ATNC Neck: Present: no JVD, supple Respiratory: Present: clear Cardiology: Present: no murmurs, no rub, no gallops, no edema, regular rate, regular rhythm, normal S1, normal S2 Integumentary: Present: no rash, warm and dry Neurologic: Present: no focal deficit, alert and oriented x3 Psychiatric: Present: mood/affect appropriate, cooperative - Lab 04/01/16 04:05 04/06/16 10:20 Most recent lab results Calcium 8.8 mg/dL (8.6-10.8) 04/05/16 03:38 Magnesium 2.2 mg/dL (1.6-2.6) 04/01/16 04:05 Urine Creatinine 99 mg/dL 03/30/16 13:55 Urine Sodium < 20.0 mEq/L 03/30/16 13:55 - VTE Documentation of Mechanical Device: Intermittent pneumatic compression device Consult Discharge Plan - Plan Referrals: Mervin Santiago MD [Primary Care Provider] - 04/13/16 9:45 am () Ernestina Heard MD [Partnered Physician] - 04/22/16 2:20 pm
[2016-04-06] MEDS: Bisacodyl 10 MG RECTAL SUPPOSITORY RC PRN (10:05)
[2016-04-06 10:47] LABS: BUN/Creatinine Ratio 21 (6-26); Blood Urea Nitrogen 24 mg/dL (7-20); Calcium 9.1 mg/dL (8.6-10.8); Carbon Dioxide 27 mEq/L (19-29); Chloride 99 mEq/L (98-109); Glucose 130 mg/dL (70-99); Osmolality,Calculated 288 (280-300); Potassium 4.4 mEq/L (3.5-4.5); Sodium 136 mEq/L (136-145); eGFR For African Americans > 60 (> 60); eGFR For Non-African Americans 54 (> 60)
--- NOTE | 2016-04-06 13:55 | Pulmonology Progress Note ---
Date of Encounter: 04/06/16 Time of Encounter: 13:52 Assessment and Plan (1) Interstitial lung disease Current Visit: Yes Status: Acute The patient reportedly underwent lung biopsy further evaluation of interstitial lung disease. Pathology report from that biopsy is analyzed as revealing RB ILD (smoking-related interstitial lung disease). The treatment of RBI LD essentially includes smoking cessation in usual management for COPD. The role of systemic steroids is somewhat poorly defined however some authorities do feel disadvantageous to provide steroids for several weeks. To this and, the patient will be transitioned from IV to enteral steroids can be tapered off over the next 2-3 weeks after discharge. Chest tube management for cardiothoracic surgery service. Please call if you have any questions. [facility] [phone] Code(s): J84.9 - Interstitial pulmonary disease, unspecified SNOMED Code(s): 548548522, [id number] Subjective Principal diagnosis: Hypoxemia post thoracotomy, interstitial lung disease, MECHELLE Interval history: The patient underwent an open lung biopsy Tuesday of last week for evaluation of interstitial lung disease (known emphysema as well) and developed recurrent pneumothorax and subcutaneous emphysema on the necessitating replacement of chest tube by Dr. Heard. Currently, patient notes improvement of breathlessness requires low-flow supplemental oxygen to maintain acceptable saturation values. Subcutaneous emphysema over the face and neck area has improved. The patient denies any other specific complaints. Objective PUL Vital signs: Last Vital Signs Temp 97.8 F 04/06/16 11:11 Pulse 108 04/06/16 11:29 Resp 16 04/06/16 11:38 BP 135/84 04/06/16 11:11 Pulse Ox 93 L 04/06/16 11:38 General appearance: no acute distress, other (Obese female) Eyes: nonicteric ENT: oropharynx moist Mallampati (class): 3 Auscultation: bilateral: diminished breath sounds Cardiovascular: regular rate and rhythm Gastrointestinal: normoactive bowel sounds Integumentary: normal Extremities: no cyanosis Musculoskeletal: no deformities Gait: normal posture normal mental status, non-focal exam Results - Laboratory Findings CBC and BMP: 04/01/16 04:05 04/06/16 10:20 Abnormal lab findings: Abnormal lab results WBC 11.9 K/mcL (4.3-11.1) H 04/01/16 04:05 RBC 3.81 M/mcL (3.82-4.97) L 04/01/16 04:05 Hgb 11.2 g/dL (11.5-15.4) L 04/01/16 04:05 MPV 9.2 fL (9.4-12.4) L 04/01/16 04:05 Neutrophils # 10.8 K/mcL (1.6-8.9) H 04/01/16 04:05 BUN 24 mg/dL (7-20) H 04/06/16 10:20 Creatinine 1.14 mg/dL (0.57-1.11) H 04/06/16 10:20 Est GFR (Non-Af Amer) 54 (> 60) L 04/06/16 10:20 Glucose 130 mg/dL (70-99) H 04/06/16 10:20 POC Glucose 101 (58-89) H 03/29/16 09:31 Uric Acid 7.2 mg/dL (2.6-6.0) H 03/30/16 04:09 Creatine Kinase 1345 Units/L (29-168) H 03/30/16 04:09 Urine Blood Large (Negative) H 03/30/16 13:55 Ur Leukocyte Esterase Trace (Negative) H 03/30/16 13:55 Urine Microscopic RBC TNTC per hpf (0-3) H 03/30/16 13:55 Urine Microscopic WBC 5-15 per hpf (0-3) H 03/30/16 13:55 Ur Squamous Epith Cells Many per lpf (None-Few) H 03/30/16 13:55 Ur Culture Indicated? YES (NO) A 03/30/16 13:55 - Diagnostic Findings Additional studies: The pathology is back from [facility] was interpreted by Dr. Juan Bloom and is most consistent with respiratory bronchiolitis/ interstitial lung disease which is form of interstitial disease related to smoking. - Clinical Findings Intake & Output: Intake & Output 04/05/16 04/06/16 04/06/16 23:59 07:59 15:59 Intake Total 790 / 790 1787 / 1787 360 / 360 Output Total 667 / 667 1905 / 1905 1102 / 1102 Balance 123 / 123 -118 / -118 -742 / -742 Weight 67.2 kg - VTE Documentation of Mechanical Device: Intermittent pneumatic compression device Consult Discharge Plan - Plan Referrals: Mervin Santiago MD [Primary Care Provider] - 04/13/16 9:45 am () Ernestina Heard MD [Partnered Physician] - 04/22/16 2:20 pm
[2016-04-07] MEDS: *HR* OxyCODONE/APAP 5/325 TABLET PO PRN ×5 (00:04→20:01)
[2016-04-07 01:03] LABS: Basophils % 0.2 %; Eosinophils % 0.1 %; Hematocrit 37.6 % (35.3-44.9); Immature Granulocytes % 1.8 % (0-4); Immature Platelets 1.4 % (1.1-6.1); Lymphocytes % 13.9 %; Mean Corpuscular HGB Conc 31.9 g/dL (31.6-35.5); Mean Corpuscular Hemoglobin 29.3 pg (28.0-33.3); Mean Corpuscular Volume 91.7 fL (83.0-100.0); Mean Platelet Volume 9.3 fL (9.4-12.4); Monocytes # 0.8 K/mcL (0.0-1.3); Platelet Count 313 K/mcL (140-400); Red Cell Distribution Width 14.4 % (11.5-14.5)
[2016-04-07] MEDS: Ipratropium/Albuterol Neb 3 ML IH SCH ×6 (04:04→23:05)
[2016-04-07] MEDS: diazePAM 5 MG TABLET PO PRN (04:54)
[2016-04-07] MEDS: *HR* Heparin 5,000 UNIT/ML VIAL SQ SCH ×2 (06:10→20:02)
[2016-04-07 06:26] LABS: BUN/Creatinine Ratio 26 (6-26); Blood Urea Nitrogen 30 mg/dL (7-20); Calcium 8.8 mg/dL (8.6-10.8); Carbon Dioxide 23 mEq/L (19-29); Chloride 99 mEq/L (98-109); Glucose 156 mg/dL (70-99); Osmolality,Calculated 289 (280-300); Potassium 4.8 mEq/L (3.5-4.5); Sodium 135 mEq/L (136-145); eGFR For African Americans > 60 (> 60); eGFR For Non-African Americans 53 (> 60)
[2016-04-07] MEDS: Budesonide/Formoterol 160/4.5 MDI IH SCH ×2 (08:34→20:23)
[2016-04-07] MEDS: Tiotropium 18 MCG inhalation IH SCH (08:39)
[2016-04-07] MEDS: Nystatin SUSP 5 ML UD.LIQ BC SCH ×4 (08:40→21:09)
[2016-04-07] MEDS: ARIPiprazole 10 MG TABLET PO SCH (08:41)
[2016-04-07] MEDS: Bisacodyl 10 MG RECTAL SUPPOSITORY RC PRN (08:42)
[2016-04-07] MEDS: MethylPREDNISolone 40 MG/ML VIAL IVP SCH ×3 (08:46→23:27)
--- NOTE | 2016-04-07 09:39 | Nephrology Progress Note ---
Date of Encounter: 04/07/16 Time of Encounter: 09:36 - Assessment and Plan (1) MECHELLE (acute kidney injury) Current Visit: Yes Status: Acute Cr 1.16, GFR 53 today, which is up slightly from 1.14 yesterday, but continues to progress toward baseline. Plan: -Will add IVF NS 0.9% @100cc/hr -Encouraged the patient to continue with adequate oral hydration. -Recheck BMP tomorrow, but expect continued improvement. Subjective Principal diagnosis: Hypoxemia post thoracotomy, interstitial lung disease, MECHELLE Interval history: Ms. Monet states that she is feeling fatigued today. She states she has been drinking 2-3 of the patient water jugs daily. She states she is urinating frequently and denies dysuria. States SOB improving, chest tube is in place. Objective - Vital Signs Vital signs: Vital Signs Temp Pulse Resp BP Pulse Ox 04/07/16 08:02 70 04/07/16 07:00 97.9 F 78 16 126/78 94 L 04/07/16 04:06 18 92 L 04/07/16 04:00 90 04/07/16 03:37 97.8 F 80 17 138/71 95 04/06/16 23:52 79 04/06/16 23:50 97.4 F L 70 16 123/79 95 04/06/16 23:32 18 93 L 04/06/16 20:28 73 04/06/16 20:25 97.6 F 97 16 141/75 91 L 04/06/16 19:45 18 92 L 04/06/16 16:33 16 96 04/06/16 15:33 70 04/06/16 15:10 98.1 F 78 16 136/83 93 L 04/06/16 11:38 16 93 L 04/06/16 11:29 108 04/06/16 11:11 97.8 F 77 18 135/84 94 L Intake and Output 04/06/16 04/07/16 04/07/16 23:59 07:59 15:59 Intake Total 240 / 240 680 / 680 120 / 120 Output Total 3605 / 3605 2882 / 2882 Balance -3365 / -3365 -2202 / -2202 110 / 110 Intake: Oral 240 / 240 680 / 680 120 / 120 Output: Urine 3600 / 3600 2875 / 2875 Chest Tube Drainage 5 / 5 7 / 7 10 / 10 Right Lateral Chest #3 Other: Meal Dinner Breakfast Percent of Meal Consumed 100% 100% Weight 68 kg Patient Weight 04/07/16 23:59 Weight 68 kg - General Appearance General appearance: Present: well-developed, well-nourished, obese EENT: Present: ATNC, mucous membranes moist Neck: Present: no JVD, supple Respiratory: Present: clear Cardiology: Present: no murmurs, no rub, no gallops, edema (trace), regular rate , regular rhythm, normal S1, normal S2 Gastrointestinal: Present: normoactive bowel sounds, no tenderness, no guarding Integumentary: Present: no rash, warm and dry Neurologic: Present: no focal deficit, alert and oriented x3 Musculoskeletal: Present: no deformities, no erythema, no cyanosis, no clubbing Psychiatric: Present: mood/affect appropriate, cooperative - Lab 04/07/16 00:18 04/07/16 06:04 Most recent lab results Calcium 8.8 mg/dL (8.6-10.8) 04/07/16 06:04 Magnesium 2.2 mg/dL (1.6-2.6) 04/01/16 04:05 Urine Creatinine 99 mg/dL 03/30/16 13:55 Urine Sodium < 20.0 mEq/L 03/30/16 13:55 - VTE Documentation of Mechanical Device: Intermittent pneumatic compression device Consult Discharge Plan - Plan Referrals: Mervin Santiago MD [Primary Care Provider] - 04/13/16 9:45 am () Ernestina Heard MD [Partnered Physician] - 04/22/16 2:20 pm
--- NOTE | 2016-04-07 12:58 | Cardiothoracic Progress Note ---
Date of Encounter: 04/07/16 Time of Encounter: 12:56 - Assessment and plan (1) Acute and chronic respiratory failure with hypoxia Current Visit: Yes Status: Acute We will leave the chest tube to suction. Hopefully, he can be removed in 1-2 days. The patient was again cautioned to refrain from smoking when she gets home. - Subjective Interval history: The patient has no complaints. Vital Signs, Last 4 Hours Temp Pulse Resp BP Pulse Ox 04/07/16 12:00 98 F 79 18 132/71 97 04/07/16 11:21 16 94 L 04/07/16 11:14 79 Oxgyen Flow Rate Oxygen Flow Rate (LPM) 4 Clinical Data, last 8 Hours Output, Chest Tube Drainage 10 Amount [Right Lateral Chest #3 ] Output, Urine Amount 2,000 Weight 04/05/16 04/06/16 04/07/16 23:59 23:59 23:59 Weight 116.8 kg 67.2 kg 68 kg Lungs are clear to percussion and auscultation. Heart is in a normal sinus rhythm. Chest tubes had minimal drainage, but do have a small air leak with cough. The crepitus and subcutaneous air are markedly improved. - Labs 04/07/16 00:18 04/07/16 06:04 Lab Results, Last 24 hours 04/07/16 04/07/16 00:18 06:04 WBC 14.1 H Hgb 12.0 Hct 37.6 Plt Count 313 Sodium 135 L Potassium 4.8 H Chloride 99 Carbon Dioxide 23 BUN 30 H Creatinine 1.16 H Glucose 156 H Calcium 8.8 - VTE Documentation of Mechanical Device: Intermittent pneumatic compression device Consult Discharge Plan - Plan Referrals: Mervin Santiago MD [Primary Care Provider] - 04/13/16 9:45 am () Ernestina Heard MD [Partnered Physician] - 04/22/16 2:20 pm
[2016-04-07] MEDS: *HR* HYDROmorphone (PF) 1 MG/ML SYRINGE IVP PRN (15:03)
[2016-04-07] MEDS: 0.9 % Sodium Chloride 1,000 ML IVC SCH ×2 (20:05→20:11)
[2016-04-08] MEDS: *HR* OxyCODONE/APAP 5/325 TABLET PO PRN ×5 (00:06→23:55)
[2016-04-08] MEDS: Ipratropium/Albuterol Neb 3 ML IH SCH ×5 (05:13→19:55)
[2016-04-08] MEDS: *HR* Heparin 5,000 UNIT/ML VIAL SQ SCH ×2 (06:15→20:40)
[2016-04-08] MEDS: 0.9 % Sodium Chloride 1,000 ML IVC SCH (06:15)
[2016-04-08 06:39] LABS: BUN/Creatinine Ratio 26 (6-26); Blood Urea Nitrogen 27 mg/dL (7-20); Calcium 8.6 mg/dL (8.6-10.8); Carbon Dioxide 24 mEq/L (19-29); Chloride 102 mEq/L (98-109); Glucose 153 mg/dL (70-99); Osmolality,Calculated 288 (280-300); Potassium 4.4 mEq/L (3.5-4.5); Sodium 135 mEq/L (136-145); eGFR For African Americans > 60 (> 60); eGFR For Non-African Americans 59 (> 60)
--- NOTE | 2016-04-08 07:04 | Cardiothoracic Progress Note ---
Date of Encounter: 04/08/16 Time of Encounter: 07:03 - Assessment and plan (1) Acute and chronic respiratory failure with hypoxia Current Visit: Yes Status: Acute I took the chest tube off suction. We will check a chest x-ray tomorrow morning. - Subjective Interval history: The patient has no complaints. Vital Signs, Last 4 Hours Pulse 04/08/16 04:30 70 Oxgyen Flow Rate Oxygen Flow Rate (LPM) 6 Clinical Data, last 8 Hours Output, Chest Tube Drainage 15 Amount [Right Lateral Chest #3 ] Output, Urine Amount 150 Weight 04/06/16 04/07/16 04/08/16 23:59 23:59 23:59 Weight 67.2 kg 68 kg Lungs are clear to percussion and auscultation. Heart is in a normal sinus rhythm. Her incision is healing well without signs of infection. The subcutaneous air and crepitus are markedly improved. - Labs 04/07/16 00:18 04/08/16 04:08 Lab Results, Last 24 hours 04/08/16 04:08 Sodium 135 L Potassium 4.4 Chloride 102 Carbon Dioxide 24 BUN 27 H Creatinine 1.05 Glucose 153 H Calcium 8.6 - VTE Documentation of Mechanical Device: Intermittent pneumatic compression device Consult Discharge Plan - Plan Referrals: Mervin Santiago MD [Primary Care Provider] - 04/13/16 9:45 am () Ernestina Heard MD [Partnered Physician] - 04/22/16 2:20 pm
[2016-04-08] MEDS: ARIPiprazole 10 MG TABLET PO SCH (07:40)
[2016-04-08] MEDS: Nystatin SUSP 5 ML UD.LIQ BC SCH ×4 (07:40→20:40)
[2016-04-08] MEDS: MethylPREDNISolone 40 MG/ML VIAL IVP SCH ×3 (07:41→23:49)
[2016-04-08] MEDS: Budesonide/Formoterol 160/4.5 MDI IH SCH ×2 (07:49→19:55)
[2016-04-08] MEDS: Tiotropium 18 MCG inhalation IH SCH (07:52)
--- NOTE | 2016-04-08 09:19 | Nephrology Progress Note ---
Date of Encounter: 04/08/16 Time of Encounter: 09:17 - Assessment and Plan (1) MECHELLE (acute kidney injury) Current Visit: Yes Status: Acute Cr 1.05, GFR 59 today, which has normalized Plan: -Encouraged the patient to continue with adequate oral hydration. -Expect Creatinine to continue to improve -Nephrology will sign off. Subjective Principal diagnosis: Hypoxemia post thoracotomy, interstitial lung disease, MECHELLE Interval history: Ms. Monet states that she is feeling fatigued today, but better overall. Her chest tube suction was turned off today and she states that it should be removed tomorrow. She states she has been drinking 2-3 of the patient water jugs daily. She states she is urinating frequently and denies dysuria. States SOB improving. Objective - Vital Signs Vital signs: Vital Signs Temp Pulse Resp BP Pulse Ox 04/08/16 07:50 16 97 04/08/16 07:45 68 04/08/16 07:00 98 F 67 16 139/86 100 04/08/16 04:30 70 04/07/16 23:55 97.6 F 04/07/16 23:45 74 04/07/16 23:17 81 04/07/16 23:05 20 95 04/07/16 22:49 81 22 137/86 88 L 04/07/16 21:00 86 16 134/64 93 L 04/07/16 20:25 24 93 L 04/07/16 20:11 77 04/07/16 19:02 98.2 F 76 20 144/92 96 04/07/16 15:44 20 95 04/07/16 15:06 97.8 F 82 20 141/75 96 04/07/16 15:00 78 04/07/16 12:00 98 F 79 18 132/71 97 04/07/16 11:21 16 94 L 04/07/16 11:14 79 Intake and Output 04/07/16 04/08/16 04/08/16 23:59 07:59 15:59 Intake Total 720 / 720 1600 / 1600 30 / 30 Output Total 3500 / 3500 165 / 165 1000 / 1000 Balance -2780 / -2780 1435 / 1435 -970 / -970 Intake: IV Fluids 1000 / 1000 0.9 % Sodium Chloride 1, 1000 / 1000 000 ML @ 100 mls/hr IVC . Q10H DANGELO Rx#:[id number] Oral 720 / 720 600 / 600 30 / 30 Output: Urine 3500 / 3500 150 / 150 1000 / 1000 Chest Tube Drainage Right Lateral Chest #3 Other: Meal Dinner Breakfast Percent of Meal Consumed 100% 95% - General Appearance General appearance: Present: well-developed, well-nourished, appears started age , obese EENT: Present: ATNC, mucous membranes moist Neck: Present: no JVD, supple Respiratory: Present: clear Cardiology: Present: no murmurs, no rub, no gallops, no edema, regular rate, regular rhythm, normal S1, normal S2 Gastrointestinal: Present: normoactive bowel sounds, no tenderness, no guarding Neurologic: Present: no focal deficit, alert and oriented x3 Musculoskeletal: Present: no deformities, no erythema, no cyanosis, no clubbing Psychiatric: Present: mood/affect appropriate, cooperative - Lab 04/07/16 00:18 04/08/16 04:08 Most recent lab results Calcium 8.6 mg/dL (8.6-10.8) 04/08/16 04:08 Magnesium 2.2 mg/dL (1.6-2.6) 04/01/16 04:05 Urine Creatinine 99 mg/dL 03/30/16 13:55 Urine Sodium < 20.0 mEq/L 03/30/16 13:55 - VTE Documentation of Mechanical Device: Intermittent pneumatic compression device Consult Discharge Plan - Plan Referrals: Mervin Santiago MD [Primary Care Provider] - 04/13/16 9:45 am () Ernestina Heard MD [Partnered Physician] - 04/22/16 2:20 pm
[2016-04-08] MEDS: diazePAM 5 MG TABLET PO PRN (15:16)
[2016-04-08] MEDS: *HR* HYDROmorphone (PF) 1 MG/ML SYRINGE IVP PRN (20:32)
[2016-04-09] MEDS: Ipratropium/Albuterol Neb 3 ML IH SCH ×6 (00:22→20:00)
[2016-04-09] MEDS: *HR* HYDROmorphone (PF) 1 MG/ML SYRINGE IVP PRN ×4 (02:03→20:02)
[2016-04-09] MEDS: *HR* OxyCODONE/APAP 5/325 TABLET PO PRN ×4 (04:18→23:49)
[2016-04-09] MEDS: *HR* Heparin 5,000 UNIT/ML VIAL SQ SCH ×2 (06:14→18:00)
[2016-04-09] MEDS: ARIPiprazole 10 MG TABLET PO SCH (07:28)
[2016-04-09] MEDS: MethylPREDNISolone 40 MG/ML VIAL IVP SCH ×3 (07:33→23:49)
[2016-04-09] MEDS: Nystatin SUSP 5 ML UD.LIQ BC SCH ×4 (07:33→20:02)
[2016-04-09] MEDS: Tiotropium 18 MCG inhalation IH SCH (08:20)
[2016-04-09] MEDS: Budesonide/Formoterol 160/4.5 MDI IH SCH ×2 (08:20→22:00)
--- NOTE | 2016-04-09 09:51 | Cardiothoracic Progress Note ---
Date of Encounter: 04/09/16 Time of Encounter: 09:49 - Assessment and plan (1) Acute and chronic respiratory failure with hypoxia Current Visit: Yes Status: Acute The chest tube was removed. We will check a stat portable chest x-ray. Hopefully , the patient can be discharged in 1-2 days once her inspired oxygen content is reduced. She was on 3 L of oxygen by nasal prong prior to admission. - Subjective Interval history: The patient has no complaints. Vital Signs, Last 4 Hours Pulse Resp Pulse Ox 04/09/16 08:20 18 91 L 04/09/16 07:30 70 Oxgyen Flow Rate Oxygen Flow Rate (LPM) 6 Clinical Data, last 8 Hours Output, Chest Tube Drainage 4 Amount [Right Lateral Chest #3 ] Output, Urine Amount 2,000 Output, Urine Amount 650 Output, Urine Amount 750 Weight 04/07/16 04/08/16 04/09/16 23:59 23:59 23:59 Weight 68 kg 67.8 kg Lungs are clear to percussion and auscultation. Heart is in a normal sinus rhythm. Her incision is healing well without signs of infection. Her crepitus and subcutaneous air are markedly improved and her left eye is back to normal. Chest x-ray on water seal reveals no pneumothorax. Chest tube drainage is minimal and there is no air leak. - Labs 04/07/16 00:18 04/08/16 04:08 - VTE Documentation of Mechanical Device: Intermittent pneumatic compression device Consult Discharge Plan - Plan Referrals: Mervin Santiago MD [Primary Care Provider] - 04/13/16 9:45 am () Ernestina Heard MD [Partnered Physician] - 04/22/16 2:20 pm
[2016-04-09] MEDS: diazePAM 5 MG TABLET PO PRN (13:05)
[2016-04-10] MEDS: *HR* HYDROmorphone (PF) 1 MG/ML SYRINGE IVP PRN (02:27)
[2016-04-10] MEDS: *HR* OxyCODONE/APAP 5/325 TABLET PO PRN ×2 (04:14→07:51)
[2016-04-10] MEDS: Ipratropium/Albuterol Neb 3 ML IH SCH ×3 (04:31→07:48)
[2016-04-10] MEDS: *HR* Heparin 5,000 UNIT/ML VIAL SQ SCH (06:07)
[2016-04-10 07:29] VITALS: BP 126/70
[2016-04-10] MEDS: ARIPiprazole 10 MG TABLET PO SCH (07:47)
[2016-04-10] MEDS: Budesonide/Formoterol 160/4.5 MDI IH SCH (07:47)
[2016-04-10] MEDS: MethylPREDNISolone 40 MG/ML VIAL IVP SCH (07:52)
[2016-04-10] MEDS: Nystatin SUSP 5 ML UD.LIQ BC SCH (07:52)
[2016-04-10] MEDS: Tiotropium 18 MCG inhalation IH SCH (09:52)
--- NOTE | 2016-04-10 10:37 | Discharge Summary ---
Date of Encounter: 04/10/16 Time of Encounter: 10:31 - Discharge Diagnosis (1) Acute and chronic respiratory failure with hypoxia Priority: Primary Status: Acute - Discharge Medications Prescriptions: OxyCODONE/APAP 10/325 [Percocet 10/325 MG] 1 each PO Q6HR PRN #30 tablet PRN Reason: Pain Home Medications: Albuterol Sulfate [Albuterol Inhaler] 2 puff IH Q4HR PRN 10/01/14 [History] Aripiprazole [Abilify] 30 mg PO DAILY 10/01/14 [History] Diazepam [Valium] 10 mg PO QID PRN 10/01/14 [History] Duloxetine [Cymbalta] 120 mg PO DAILY 10/01/14 [History] Esomeprazole Magnesium [Nexium] 40 mg PO DAILY 10/01/14 [History] Fluticasone/Salmeterol [Advair 500-50 Diskus] 1 puff IH BID 10/01/14 [History] Methocarbamol [Robaxin] 500 mg PO Q8HR PRN #20 tablet 04/28/15 [Rx] Naproxen [Naprosyn] 500 mg PO BID 5 Days 09/04/15 [Rx] Ipratropium/Albuterol Neb [Duoneb] 3 ml IH Q6HR PRN 02/03/16 [History] Oxygen 3 l .ROUTE AD 02/03/16 [History] Tiotropium [place] [Spiriva Respimat] 2 puff IH DAILY 02/03/16 [History] OxyCODONE/APAP 10/325 [Percocet 10/325 MG] 1 each PO Q6HR PRN #30 tablet [Rx] Allergies/Adverse Reactions: Allergies Cefaclor Allergy (Verified 03/29/16 07:40) Rash Asenapine [From Saphris] Adverse Reaction (Verified 03/29/16 07:40) See Comments patient states symptoms worsen lamotrigine [From Lamictal] Adverse Reaction (Verified 03/29/16 07:40) Migraine lurasidone [From Latuda] Adverse Reaction (Verified 03/29/16 07:40) See Comments patient states symptoms worsen Date of admission: 03/29/16 09:20 Primary care physician: Mervin Santiago MD Consults: 03/29/16 11:23 Consult to Pipeline Integrity Engineer [CONS] Routine Reason for SW Consult: request info for DPOA 03/30/16 09:46 Consult to Nephrology [CONS] Routine Consulting Provider: Kidney Mona/GURU/ALCI/CLARISSA Reason for Consult: CKD, Stage IIIA Time Notified: 08:30 Call Completed: Yes 03/30/16 16:08 Consult to Pulmonology [CONS] Routine Consulting Provider: Pulm Crit [facility] Sleep [place] Reason for Consult: low saturation, underlying pulmonary disease, s/p thoracotomy Time Notified: 16:00 Call Completed: Yes 04/02/16 07:31 Consult to Pulmonology [CONS] Routine Consulting Provider: Pulm [facility] [place] Reason for Consult: Postoperative respiratory insufficiency. Time Notified: 07:29 Call Completed: Yes Procedure(s) Performed: March 29, 2016. Right posterolateral thoracotomy with biopsy of the right upper, right middle and right lower lobes. April 04, 2016. Insertion of right chest tube. Discharging clinician: Charles Niño Anticipated date of discharge: 04/10/16 - Patient Status Disposition: Home, Self-Care Condition: Fair Functional capacity at discharge: independent ambulation Overall status at discharge: patient is progressing back to baseline - Discharge Instructions Instructions: Thoracotomy (DC) Follow Up With: Mervin Santiago MD [Primary Care Provider] - 04/13/16 9:45 am () Ernestina Heard MD [Partnered Physician] - 04/22/16 2:20 pm - Hospital Course Hospital course: Ms. Monet is a 35 year old female The patient is a 35-year-old female who does have a history of smoking up to 5 packs of cigarettes per day. She presented with worsening shortness of breath. She underwent bronchoscopy which revealed no malignancy. She was referred for open lung biopsy for diagnosis. On March 29, 2016, my partner Dr. Heard took the patient to the operating room for right posterolateral thoracotomy with biopsy of the right lower, right middle and right upper lobes. On March 30, the patient was transferred to the floor. She was followed by the pulmonary and nephrology services. On April 01 her chest tubes were removed. However, the patient developed worsening subcutaneous emphysema. She was also found to have a right apical pneumothorax. On April 04, 2016, Dr. Heard inserted a right chest tube. On April 08, the tube was taken off suction. On February 24, the chest tube was removed. 2 chest x-rays done after this revealed no pneumothorax. The patient otherwise did well and was discharged on April 10. At that time she was afebrile. All incisions were healing well without signs of infection. Her lungs were clear to percussion and auscultation. She was in a normal sinus rhythm. Discharge medications are on the med rec. She was given Percocet 10 for pain. I did check the [place] automated Rx reporting system. The patient is on Valium. She did have a 0 accumulated morphine equivalent. Appropriate precautions were given. She was given a one-week supply and she was postoperative. She was to return to her previous regular diet. She was to avoid heavy lifting for a total of 3 months after surgery. She was to walk as much as possible. She was to avoid driving for 1 month. It should be noted that the patient was on 3 L of oxygen by nasal prong preoperatively continuously. She did go home on 3 L of oxygen. At the time of discharge her subcutaneous emphysema had largely resolved. He was to follow-up and see Dr. Heard in the office in 4 weeks as directed. She was to follow-up with her meal room hand as directed. She was to follow-up with her primary care doctor as directed. She was to call sooner for any difficulties. - Time Spent with Patient Total time spent providing and/or coordinating discharge services: Physical Examination Vital Signs, Last 4 Hours Temp Pulse Resp BP Pulse Ox 04/10/16 08:00 72 04/10/16 07:49 16 91 L 04/10/16 07:26 97.6 F 72 16 126/70 91 L - VTE Documentation of Mechanical Device: Intermittent pneumatic compression device
== END 2016-04-10 11:10 | disposition home or self-care (01) | DRG 163 ==
LOC: SAMDAY 06:08 → ICNU 09:20 → 2NNU 03-31 21:19
PROVIDERS: ADMIT Thoracic Surgery (Cardiothoracic Vascular Surgery); ATTEND Thoracic Surgery (Cardiothoracic Vascular Surgery)

== ENCOUNTER 2016-04-19 14:39 | Observation (INO) ==
[2016-04-19] MEDS ORDERED: Furosemide 40 MG/4 ML VIAL IVP ONE (18:32)
--- NOTE | 2016-04-19 18:36 | Emergency Department Note ---
Disposition Clinical Impression: MECHELLE (acute kidney injury), Hypoxia, Interstitial lung disease Dyspnea Qualifiers: Dyspnea type: unspecified Qualified Code(s): R06.00 - Dyspnea, unspecified Lower extremity edema Qualifiers: Laterality: bilateral Qualified Code(s): R60.0 - Localized edema Disposition: Admitted As Inpatient Condition: Good Referrals: Mervin Santiago MD [Primary Care Provider] - Forms: ED Satisfaction Letter Time of Disposition: 21:17 Extremity Problem HPI - General Chief complaint: ED Extremity Problem,Nontraumatic Stated complaint: bilateral leg swelling/trouble swallowing Time Seen by Provider: 04/19/16 18:13 Source: patient, family Mode of arrival: ambulatory Limitations: no limitations Nursing Notes Reviewed: Yes Vital Signs Reviewed: Yes - History of Present Illness HPI Narrative: 35-year-old female history of interstitial lung disease on 4 L home oxygenation and current pack per day smoker presents to the ED with bilateral leg swelling and difficulty in swallowing. She was previously admitted and had a thoracotomy performed to the right chest to diagnose her interstitial lung disease. This was performed 03/30. Since then she reports the past 10 days she has had increase swelling to bilateral legs now up to the mid thigh. She takes 40 mg Lasix without much improvement. Her plant health manager is Dr. Morrissey, next scheduled appointment in May. She is also experiencing right-sided chest pain near the incision site as well as the anterior chest wall. Worse with deep inhalation. She has baseline dyspnea that does not appear worse than usual. Patient denies any recent fever, cough, hemoptysis, bloody stools, recent long-distance travel. Denies any history of blood clots. Denies any active cancer or estrogen use. She is taking Diflucan for her oral trush since discharge from hospital. Patient was discharged on 04/10. Painful swallowing especially with solid foods. Denies choking but she has been having congestion and rhinorrhea. Pt Subjective Complaint: extremity swelling Onset (ago): day(s) Consistency: constant Pain Scale: 8 - Related Data Home Medications Medication Instructions Recorded Confirmed Albuterol Sulfate [Albuterol 2 puff IH Q4HR PRN 10/01/14 04/19/16 Inhaler] Aripiprazole [Abilify] 30 mg PO DAILY 10/01/14 04/19/16 Diazepam [Valium] 10 mg PO QID PRN 10/01/14 04/19/16 Duloxetine [Cymbalta] 120 mg PO DAILY 10/01/14 04/19/16 Esomeprazole Magnesium [Nexium] 40 mg PO DAILY 10/01/14 04/19/16 Fluticasone/Salmeterol [Advair 1 puff IH BID 10/01/14 04/19/16 500-50 Diskus] Ipratropium/Albuterol Neb [Duoneb] 3 ml IH Q6HR PRN 02/03/16 04/19/16 Oxygen 4 l NS CONT 02/03/16 04/19/16 Tiotropium [place] [Spiriva 2 puff IH DAILY 02/03/16 04/19/16 Respimat] Baclofen [Lioresal] 10 mg PO TID 04/19/16 04/19/16 Fluconazole [Diflucan] 100 mg PO DAILY 04/19/16 04/19/16 Furosemide [Lasix] 40 mg PO DAILY 04/19/16 04/19/16 Previous Rx's Medication Instructions Recorded Naproxen [Naprosyn] 500 mg PO BID 5 Days 09/04/15 OxyCODONE/APAP 10/325 [Percocet 1 each PO Q6HR PRN #30 tablet 04/10/16 10/325 MG] Allergies Allergy/AdvReac Type Severity Reaction Status Date / Time Cefaclor Allergy Rash Verified 04/19/16 15:06 Asenapine [From Saphris] AdvReac See Verified 04/19/16 15:06 Comments lamotrigine [From Lamictal] AdvReac Migraine Verified 04/19/16 15:06 lurasidone [From Latuda] AdvReac See Verified 04/19/16 15:06 Comments All systems ED: reviewed and negative except as stated. Constitutional: Denies: fever, chills ENT ED: Reports: congestion Cardiovascular: Reports: chest pain Respiratory: Reports: dyspnea. Denies: cough Gastrointestinal: Denies: abdominal pain Genitourinary: Denies: urgency, dysuria Integumentary: Denies: rash, abrasion Past Medical History - Past Medical History Attestation: Yes The following information was validated with the patient. Source: patient Medical history: Reports: COPD, GERD, other Psychiatric history: Reports: anxiety, bipolar, depression [employer] history: Reports: polycystic ovary syndrome, bilateral tubal ligation - Social History Smoking Status: Current every day smoker Smokeless Tobacco Status: No Alcohol use: Reports: occasionally Drug use: Reports: marijuana Physical Exam - General Limitations: no limitations General appearance: alert, in no apparent distress - Head Head exam: atraumatic, normocephalic, normal inspection - Eye Eye exam: Present: normal appearance, PERRL, EOMI - ENT ENT exam: normal exam, normal oropharynx, mucous membranes moist - Neck Neck exam: Present: normal inspection, full ROM, trachea midline - Chest Chest inspection: Present: normal inspection, symmetric chest wall rise, tenderness (Right anterior chest wall), other (thoracotomy scar to lateral right chest, good healing without discharge or erythema) - Respiratory Respiratory exam: Present: other (diminished air movement bilaterally with coarse breath sounds). Absent: respiratory distress, wheezes - Expanded Respiratory Exam Location: rales: Left, Right, decreased breath sounds: Right, Left - Cardiovascular Cardiovascular exam: Present: regular rate, normal rhythm, normal heart sounds - Abdominal Exam Abdominal exam: Present: soft, Non-Tender, normal bowel sounds. Absent: tenderness, distention, guarding, rebound, rigidity - Extremities Exam Extremities exam: Present: normal inspection, full ROM, pedal edema (+3 pitting edema bilaterally up to mid thigh). Absent: tenderness, calf tenderness - Neurological Exam Neurological exam: Present: alert, oriented X3 - Psychiatric Psychiatric exam: Present: normal affect, normal mood - Skin Skin exam: Present: warm, dry, intact, normal color, other (no signs of cellulitis). Absent: erythema Course Course Narrative: Their 5-year-old female history of interstitial lung disease on 4 L home oxygen supplementation present CD with bilateral leg swelling. Patient was recently admitted which included a thoracotomy. Since then she has had increased bilateral leg swelling. She has had also increased and dyspnea. Initially vital signs tachycardia 103, 91% oxygen saturation. She is currently on 4 L nasal cannula. She appears in no acute distress. Lungs are coarse and slightly diminished. She has +3 pitting edema bilaterally to the mid thigh. She reports taking 40 mg Lasix every night for the past 10 days without improvement. Due to recent hospitalization increased risk for blood clot. We will get a venous Doppler, D dimer, basic labs, chest x-ray. IV 40 mg of Lasix ordered. If D-dimer is elevated will proceed with CTA chest to R/O PE. Likely admission. - Reevaluation(s) Reevaluation #1: Patients D dimers elevated 1263. Her creatinine is 1.37 well above her baseline. Troponins negative. BNP is negative. Will get CTA of chest with fluid bolus hydration. Cardiopulmonary kiss setter hand at bedside for venous doppler. Need to place 18G for CTA of chest. Patient is in agreement with plan for admission. Impression is MECHELLE, hypoxia, dyspnea. Pending imaging results will treat accordingly. Patient will be signed out to nighttime physician Dr. Dutton. Time: 20:49 Reevaluation #2: Venous doppler of LEs negative for DVT Time: 21:10 - Consultations Consultation #1: Spoke with Dr. Morin, hospitalist, [place] to admit for MECHELLE, hypoxia, dyspnea, interstitial lung disease. Recommends to cancel CTA of chest to R/O PE given known history of interstitial lung disease. This is not CHF, BNP is <20. No documented ECHO in [facility]. Time: 21:14 Vital Signs Temperature 97.9 F 04/19/16 15:07 Pulse Rate 103 04/19/16 15:07 Respiratory Rate 22 04/19/16 15:07 Blood Pressure 136/85 04/19/16 15:07 O2 Sat by Pulse Oximetry 91 L 04/19/16 15:07 Temperature 97.9 F 04/19/16 15:07 Pulse Rate 103 04/19/16 19:09 Respiratory Rate 17 04/19/16 19:20 Blood Pressure 120/63 04/19/16 19:20 O2 Sat by Pulse Oximetry 95 04/19/16 19:20 Oxygen Delivery Oxygen Delivery Nasal Cannula Extremity Problem, Nontraumati - Medical Records Medical records reviewed: Yes I reviewed the patient's medical records. - Lab Data Lab results reviewed: Yes I reviewed the patient's lab results. Result diagrams: 04/19/16 19:44 04/19/16 19:44 Lab Results 04/19/16 04/19/16 04/19/16 Range/Units 19:44 19:44 19:44 WBC 9.9 (4.3-11.1) K/mcL RBC 3.99 (3.82-4.97) M/mcL Hgb 11.6 (11.5-15.4) g/dL Hct 36.3 (35.3-44.9) % MCV 91.0 (83.0-100.0) fL MCH 29.1 (28.0-33.3) pg MCHC 32.0 (31.6-35.5) g/dL RDW 14.9 H (11.5-14.5) % Plt Count 213 (140-400) K/mcL MPV 8.5 L (9.4-12.4) fL Immature Gran % 0.3 (0-4) % Seg Neutrophils % 56.6 % Lymphocytes % 31.4 % Monocytes % 4.4 % Eosinophils % 6.8 % Basophils % 0.5 % Neutrophils # 5.6 (1.6-8.9) K/mcL Lymphocytes # 3.1 (0.6-4.6) K/mcL Monocytes # 0.4 (0.0-1.3) K/mcL Eosinophils # 0.7 H (0.0-0.6) K/mcL Basophils # 0.1 (0.0-0.2) K/mcL PT 10.6 (9.4-12.1) Seconds INR 1.0 APTT 27.5 (26.0-36.0) Seconds D-Dimer 1293 H (0-500) ng/mLFEU Sodium (136-145) mEq/L Potassium (3.5-4.5) mEq/L Chloride (98-109) mEq/L Carbon Dioxide (19-29) mEq/L BUN (7-20) mg/dL Creatinine (0.57-1.11) mg/dL Est GFR ( Amer) (> 60) Est GFR (Non-Af Amer) (> 60) BUN/Creatinine Ratio (6-26) Glucose (70-99) mg/dL Calculated Osmolality (280-300) Calcium (8.6-10.8) mg/dL Troponin I (0-0.03) ng/mL B-Natriuretic Peptide 12 (0-100) pg/mL 04/19/16 04/19/16 Range/Units 19:44 19:44 WBC (4.3-11.1) K/mcL RBC (3.82-4.97) M/mcL Hgb (11.5-15.4) g/dL Hct (35.3-44.9) % MCV (83.0-100.0) fL MCH (28.0-33.3) pg MCHC (31.6-35.5) g/dL RDW (11.5-14.5) % Plt Count (140-400) K/mcL MPV (9.4-12.4) fL Immature Gran % (0-4) % Seg Neutrophils % % Lymphocytes % % Monocytes % % Eosinophils % % Basophils % % Neutrophils # (1.6-8.9) K/mcL Lymphocytes # (0.6-4.6) K/mcL Monocytes # (0.0-1.3) K/mcL Eosinophils # (0.0-0.6) K/mcL Basophils # (0.0-0.2) K/mcL PT (9.4-12.1) Seconds INR APTT (26.0-36.0) Seconds D-Dimer (0-500) ng/mLFEU Sodium 135 L (136-145) mEq/L Potassium 3.5 (3.5-4.5) mEq/L Chloride 93 L (98-109) mEq/L Carbon Dioxide 30 H (19-29) mEq/L BUN 11 (7-20) mg/dL Creatinine 1.37 H (0.57-1.11) mg/dL Est GFR ( Amer) 53 L (> 60) Est GFR (Non-Af Amer) 44 L (> 60) BUN/Creatinine Ratio 8 (6-26) Glucose 93 (70-99) mg/dL Calculated Osmolality 279 L (280-300) Calcium 8.2 L (8.6-10.8) mg/dL Troponin I 0.00 (0-0.03) ng/mL B-Natriuretic Peptide (0-100) pg/mL - Radiology Data Radiology results reviewed: Yes I reviewed the patient's radiology results. Preliminary venous doppler, negative for DVTs bilaterally. Chest X-Ray 04/19/16 18:31 IMPRESSION: Low lung volumes with bibasilar atelectasis or pneumonia D/ / Elliott Rodríguez MD / Elliott Rodríguez MD Interpreting Provider: Elliott Rodríguez MD - EKG Data EKG attestation: Yes I reviewed and interpreted this EKG. EKG results narrative: EKG performed 1845 normal sinus rhythm 88 bpm, good R-R wave progression, normal axis, there are no ST elevations or depressions, no T-wave inversions. Intervals are within normal limits [place] interval 162 QRS 97 QT QTC 362 407. No old EKG for comparison. No acute ischemic changes. Attestation Statement - Attestation Attestation: Patient was seen with resident physician. I reviewed the history, physical, assessment and plan, and agree with the findings. I also personally evaluated this patient and had [id number] time with this patient. 35-year-old female with a recent diagnosis of interstitial lung disease presents with increased leg swelling. Patient takes Lasix at home but says it has been ineffective. Now notes the leg swelling is gone from the ankles all the way up to the knees. She is also shortness of breath but this is been consistent for her. Denies fevers or chills or chest discomfort at this time. On examination ENT is unremarkable lungs crackles throughout but moving good air. Heart is normal. Abdomen is soft and nontender. Extremities patient has bilateral symmetric edema 2+ lower extremities from the knee down. Will do full cardiac workup and also checked a d-dimer. Will give the patient IV Lasix. We will also treat symptomatically with a DuoNeb for the shortness of breath. Venous duplex of the lower extremities was unremarkable. D-dimer is highly elevated, but in speaking with the hospitalist did not feel that the patient had a PE and suggested we get a VQ scan if needed. We were going to order a CT scan of the chest, but with her renal function being marginal we did have some concerns about this modality. Because of the patient's swelling and acute kidney injury , hospitalization is indicated to get her fluid balance under control. Additionally she continues to have hypoxia secondary to her lung condition. She will be admitted to the hospitalist service for further evaluation and treatment. I agree with the resident physician assessment plan.
[2016-04-19] MEDS ORDERED: Ipratropium/Albuterol Neb 3 ML IH ONE (18:59)
[2016-04-19 19:58] LABS: Basophils % 0.5 %; Eosinophils % 6.8 %; Hematocrit 36.3 % (35.3-44.9); Hemoglobin 11.6 g/dL (11.5-15.4); Immature Granulocytes % 0.3 % (0-4); Lymphocytes % 31.4 %; Mean Corpuscular Hemoglobin 29.1 pg (28.0-33.3); Mean Platelet Volume 8.5 fL (9.4-12.4); Monocytes % 4.4 %; Platelet Count 213 K/mcL (140-400); Red Blood Count 3.99 M/mcL (3.82-4.97); Red Cell Distribution Width 14.9 % (11.5-14.5); Segmented Neutrophils % 56.6 %
[2016-04-19 19:59] LABS: Basophils # 0.1 K/mcL (0.0-0.2); Eosinophils # 0.7 K/mcL (0.0-0.6); Lymphocytes # 3.1 K/mcL (0.6-4.6); Monocytes # 0.4 K/mcL (0.0-1.3); Neutrophils # 5.6 K/mcL (1.6-8.9); Prothrombin Time 10.6 Seconds (9.4-12.1)
[2016-04-19 20:02] LABS: Activated Partial Thrombo Time 27.5 Seconds (26.0-36.0)
[2016-04-19 20:08] LABS: Calcium 8.2 mg/dL (8.6-10.8); Potassium 3.5 mEq/L (3.5-4.5)
[2016-04-19] MEDS ORDERED: 0.9 % Sodium Chloride 1,000 ML IVC ONE (20:13)
[2016-04-19] MEDS ORDERED: metOLazone 2.5 MG TABLET PO STA (22:22)
[2016-04-19] MEDS ORDERED: *HR* Promethazine 25 MG/ML VIAL IVP PRN (22:22)
[2016-04-19] MEDS ORDERED: *HR* Morphine 2 MG/ML SYRINGE IVP PRN (22:22)
[2016-04-19] MEDS ORDERED: *HR* OxyCODONE Immed Rel 5 MG TABLET PO PRN (22:22)
[2016-04-19] MEDS ORDERED: Naloxone 0.4 MG/ML INJ IVP PRN (22:22)
[2016-04-19] MEDS ORDERED: Acetaminophen 325 MG TABLET PO PRN (22:22)
[2016-04-19] MEDS ORDERED: Albuterol 2.5 MG/3 ML NEBULIZER IH PRN (22:22)
[2016-04-19] MEDS ORDERED: Pantoprazole 40 MG VIAL IVP STA (22:22)
[2016-04-19] MEDS ORDERED: Bumetanide 1 MG/4 ML VIAL IVP ONE (22:22)
--- NOTE | 2016-04-19 22:44 | Internal Med History&Physical ---
Date of Encounter: 04/19/16 Time of Encounter: 22:00 Assessment and Plan (1) Dependence on continuous supplemental oxygen Status: Chronic . (2) Acute kidney injury superimposed on CKD Status: Acute . (3) CKD (chronic kidney disease) stage 3, GFR 30-59 ml/min Status: Chronic . (4) Hyponatremia with decreased serum osmolality Status: Acute . (5) Metabolic alkalosis with respiratory acidosis Status: Acute . (6) Morbid obesity with BMI of 40.0-44.9, adult Status: Chronic . (7) Morbid (severe) obesity with alveolar hypoventilation Status: Chronic . (8) Interstitial lung disease Status: Chronic . (9) Lower extremity edema Status: Chronic . Qualifiers: Laterality: bilateral Qualified Code(s): R60.0 - Localized edema (10) Acute and chronic respiratory failure with hypoxia Status: Acute . (11) Atelectasis of both lungs Status: Chronic . (12) Post-thoracotomy pain Status: Chronic . (13) COPD (chronic obstructive pulmonary disease) Status: Chronic . Qualifiers: COPD type: unspecified COPD Qualified Code(s): J44.9 - Chronic obstructive pulmonary disease, unspecified Internal Medicine - H&P: HPI Chief complaint: Difficulty breathing. Difficulty swallowing. Swelling of legs. Admitted From: Emergency Dept Plans for Post Hospital Care: Home History of present illness: Ms. Monet is a 35 year old female with history significant for COPD/chronic interstitial lung disease, GERD, depression-anxiety/bipolar disorder, osteoarthritis, vit D deficiency, chronic MSK/post-thoracotomy pain syndrome, CKD III, LEOLA, ?[place]?OHS, PCOS/DUB, migraine/chr headaches, morbid obesity, nicotine dependency-addiction The patient was visited and interviewed and examined. Patient is admitted with complaints of bilateral leg swelling, swallowing problems, right chest post- thoracotomy pain and breathing difficulties of one to two week's duration. Initial screening studies suggest at chest x-ray low lung volumes with bibasilar atelectasis versus pneumonia. She has chronic interstitial lung disease on continuous 4 L/m nasal cannula oxygenation but also continues to smoke a pack of cigarettes daily. She was recently hospitalized from March 30- for thoracotomy and wedge lung resection to diagnose her interstitial lung disease./C and Lasix doses have not been effective in alleviating her peripheral edema as well as Diflucan doses to resolve or thrush as prescribed at recent discharge. Her pain as being at an 8/10 in severity. He acknowledges some of her upper and lower respiratory congestion and rhinorrhea. Initial screening studies demonstrates acute kidney injury with modest electrolyte derangements. Acute on chronic hypoxic respiratory failure is multifactorial. D-dimer was elevated and assessment is planned for this. Workup and treatments will proceed comprehensively. Cumulative laboratory and radiographic data base will be considered and discussed. Pertinent ancillary medical records including ECW and PCI documentation when available was reviewed and considered. Given the patient's presenting concerns, past medical history, clinical findings and symptoms, she is admitted at this time will undergo further evaluation and disposition. Orders were written as per Computerized physician hospital orderly system.......................................................................... .................... Consultative opinion and will be sought as clinical circumstances justify. Pain management needs will be addressed. Laboratory /radiographic data base will be updated as appropriate. Studies include: Cultures of blood and urine and sputum, Coag's, CPK, UA, UDS, A1A profile, cardiac injury panel, BNP, metabolic and hematologic panel, magnesium, phosphorus, ionized calcium, thyroid panel, lipid profile, A1c, C-peptide, CRP, sedimentation rate, respiratory infection profile, respiratory virus panel, blood gas, lactic acid, serologies, etc. Precautions: Aspiration, fall, delirium protocol/surveillance initiated. Telemetry with continuous hemodynamic monitoring and pulse oximetry initiated. Empiric antibiotic coverage: Intravenous vancomycin, Zosyn, Levaquin pending culture data. Special studies: CT/CTA chest, VQ scan, chest x-ray, telemetry, EKG, 2D echo. Pulmonary toilet: Incentive spirometry, aerosol bronchodilator, mucolytic, antitussive, supplemental oxygen. Corticosteroid therapy. CPAP/BiPAP supplemental oxygen delivery. Aerosol Mucomyst therapy. Fluid and electrolyte repletion efforts will proceed. Careful attention to fluid balance and renal recovery will be emphasized. Avoidance of nephrotoxic exposure and adverse drug drug interaction in the setting of impaired renal function will be monitored closely. Acute coronary syndrome protocol/surveillance initiated. DVT and PUD prophylaxis initiated: PPI therapy, intermittent pneumatic cuffs. Subcutaneous heparin. Early ambulation will be encouraged. Immunization updates recommended. Influenza and pneumococcal vaccinations as part of ongoing preventative healthcare recommendations strongly recommended. Smoking cessation counseling briefly addressed. Patient accepts nicotine substitution during this admission. Advanced care directive discussion briefly addressed. Patient does not declare any healthcare restrictions at this time. Cardiovascular risk appraisal and cardiovascular risk reduction efforts will be emphasized. Physical /occupational therapy may be counseled to evaluate patient's function capacity and progressive mobility of her circumstances justify. Nutrition/dietary education counseling may be considered as circumstances justify. Outpatient medication schedules will be reviewed confirmed and facilitated as appropriate. Reconciliation of home treatments including adjustment substitutions and reintroduction into the treatment regimen as necessary maintenance therapies for chronic pre-existing medical conditions. Plan of care has been reviewed and discussed in detail with the patient. Questions addressed. Hospital course dictated by clinical findings, treatment response and potential consultative interventions. Patient is a risk for further acute clinical decline due to her frailty, chief complaints and comorbid conditions. Condition is serious. Prognosis is guarded. CODE STATUS is full. Past Med Surg Social Fam HX - Past Medical History Source: old records reviewed Medical history: arthritis, COPD (Interstitial lung disease.), GERD, migraine, osteoporosis (Vitamin D deficiency.), renal disease (CKD III. LEOLA.), other ( Polycystic ovarian syndrome. Irregular menstrual bleeding. Condylomata/HPV. History of abnormal Pap smears.) Psychiatric history: anxiety, bipolar, depression, other - Past Surgical History Surgical History: other (Bronchoscopy. Right lung biopsy s/p thoracotomy s/p chest-tube placement/removal. Colectomy adenoidectomy. EGD. Laparoscopic tubal ligation. Coagulation with bipolar cautery. LEEP conization. Condylomata removal and partial vulvectomy) - Social History Smoking Status: Heavy tobacco smoker (h/o smoking up to 5ppd cigarette addiction.) Smokeless Tobacco Status: No Alcohol use: occasionally Drug use: marijuana, other Activity Level: Independent ambulation, Mostly sedentary Recent Out of Country Travel Within the Last 8 Weeks: No Exposure or Possible Exposure to Illness During Travel: No Internal Medicine - H&P: Meds Albuterol Sulfate [Albuterol Inhaler] 2 puff IH Q4HR PRN 10/01/14 [History] Aripiprazole [Abilify] 30 mg PO DAILY 10/01/14 [History] Diazepam [Valium] 10 mg PO QID PRN 10/01/14 [History] Duloxetine [Cymbalta] 120 mg PO DAILY 10/01/14 [History] Esomeprazole Magnesium [Nexium] 40 mg PO DAILY 10/01/14 [History] Fluticasone/Salmeterol [Advair 500-50 Diskus] 1 puff IH BID 10/01/14 [History] Naproxen [Naprosyn] 500 mg PO BID 5 Days 09/04/15 [Rx] Ipratropium/Albuterol Neb [Duoneb] 3 ml IH Q6HR PRN 02/03/16 [History] Oxygen 4 l NS CONT 02/03/16 [History] Tiotropium [place] [Spiriva Respimat] 2 puff IH DAILY 02/03/16 [History] Baclofen [Lioresal] 10 mg PO TID 04/19/16 [History] Furosemide [Lasix] 40 mg PO DAILY 04/19/16 [History] Clindamycin [Cleocin] 150 mg PO Q6HR #20 capsule 04/22/16 [Rx] OxyCODONE/APAP 10/325 [Percocet 10/325 MG] 1 each PO Q6HR PRN #30 tablet [Rx] Allergies Cefaclor Allergy (Verified 04/19/16 15:06) Rash Asenapine [From Saphris] Adverse Reaction (Verified 04/19/16 15:06) See Comments patient states symptoms worsen lamotrigine [From Lamictal] Adverse Reaction (Verified 04/19/16 15:06) Migraine lurasidone [From Latuda] Adverse Reaction (Verified 04/19/16 15:06) See Comments patient states symptoms worsen All Systems PM: A 10-system review of systems was performed and is negative for pertinent findings except as documented above in the HPI. - Constitutional Constitutional: as per HPI, no chills, no fever(s), no night sweats - EENT Eyes: as per HPI, no change in vision, no discharge, no pain, no photophobia Ears: as per HPI Nose, mouth and throat: as per HPI, dry mouth, dysphagia, nasal congestion, sore throat, other, no nasal discharge, no neck pain - Cardiovascular Cardiovascular ROS IM: as per HPI, edema, no chest pain, no diaphoresis, no dyspnea, no lightheadedness, no palpitations, no syncope - Respiratory Respiratory: as per HPI, dyspnea, dyspnea on exertion, wheezing, other, no cough , no hemoptysis, no excessive phlegm production - Gastrointestinal Gastrointestinal: as per HPI, dysphagia, odynophagia, no abdominal pain, no diarrhea, no hematemesis, no hematochezia, no melena, no nausea, no vomiting - Genitourinary Genitourinary: as per HPI, abnormal vaginal bleeding, urinary incontinence, other, no change in urinary stream, no dysuria, no flank pain, no hematuria Menstruation: as per HPI, other - Musculoskeletal Musculoskeletal ROS IM: as per HPI, other, no numbness, no tingling - Integumentary Integumentary IM: as per HPI, no rash, no unusual bruising - Neurological Neurological ROS: as per HPI, no confusion, no convulsions, no focal weakness, no numbness, no tingling, no tremor(s) - Psychiatric Psychiatric: as per HPI - Endocrine Endocrine IM: as per HPI - Hematologic/Lymphatic Hematologic/Lymphatic: as per HPI, no easy bruising - Allergic/Immunologic Allergic/Immunologic: as per HPI - Constitutional Vitals: Temp Pulse Resp BP Pulse Ox 97.9 F 103 17 120/63 95 04/19/16 15:07 04/19/16 19:09 04/19/16 19:20 04/19/16 19:20 04/19/16 19:20 General appearance: Present: mild distress, A&O X 3, morbidly obese, answers questions appropriately - Head Head exam: Present: atraumatic, normocephalic - Eye Eye exam: Present: EOMI, PERRL, conjuntiva pink, sclera anicteric Pupils: Present: normal accommodation, PERRL - ENT ENT exam: Present: mucous membranes moist, normal external ear exam, normal oropharynx (THRUSH) - Neck Neck exam general surgery: Present: full ROM, supple, trachea midline. Absent: lymphadenopathy - Respiratory Respiratory exam: Present: chest wall tenderness, decreased breath sounds, CTAB , prolonged expiratory phase, wheezes. Absent: accessory muscle use, rales, rhonchi - Cardiovascular Cardiovascular exam: Present: distant heart sounds, RRR, +S1, +S2. Absent: diastolic murmur, gallop, rubs, systolic murmur - GI/Abdominal GI/Abdominal exam: Present: normal bowel sounds, soft, no peritoneal signs. Absent: distended, tenderness - Extremities Exam Extremities exam: Present: full ROM, pedal edema, warm, radial pulses palpable and symetrical. Absent: calf tenderness, cyanotic - Neurological Exam Neurological exam: Present: alert, CN II-XII intact, oriented X3, no focal deficits. Absent: pronater drift, facial droop, speech deficit - Psychiatric Psychiatric exam: Present: normal affect, normal mood - Skin Skin exam: Present: dry, intact Internal Med - H&P Results - Labs CBC & Chem 7: 04/22/16 05:56 04/22/16 05:56 - Impressions Vital Signs Temp Pulse Resp BP Pulse Ox 04/19/16 19:20 17 120/63 95 04/19/16 19:09 103 22 136/85 91 L 04/19/16 15:07 97.9 F 103 22 136/85 91 L Intake and Output 04/19/16 04/19/16 04/19/16 07:59 15:59 23:59 Other: Weight 122.47 kg Patient Weight 04/19/16 23:59 Weight 122.47 kg Short CBC 04/19/16 Range/Units 19:44 WBC 9.9 (4.3-11.1) K/mcL Hgb 11.6 (11.5-15.4) g/dL Hct 36.3 (35.3-44.9) % Plt Count 213 (140-400) K/mcL Neutrophils # 5.6 (1.6-8.9) K/mcL BMP 04/19/16 Range/Units 19:44 Sodium 135 L (136-145) mEq/L Potassium 3.5 (3.5-4.5) mEq/L Chloride 93 L (98-109) mEq/L Carbon Dioxide 30 H (19-29) mEq/L BUN 11 (7-20) mg/dL Creatinine 1.37 H (0.57-1.11) mg/dL Glucose 93 (70-99) mg/dL Calcium 8.2 L (8.6-10.8) mg/dL Cardiac Enzymes 04/19/16 Range/Units 19:44 Troponin I 0.00 (0-0.03) ng/mL Abnormal lab results RDW 14.9 % (11.5-14.5) H 04/19/16 19:44 MPV 8.5 fL (9.4-12.4) L 04/19/16 19:44 Eosinophils # 0.7 K/mcL (0.0-0.6) H 04/19/16 19:44 D-Dimer 1293 ng/mLFEU (0-500) H 04/19/16 19:44 Sodium 135 mEq/L (136-145) L 04/19/16 19:44 Chloride 93 mEq/L (98-109) L 04/19/16 19:44 Carbon Dioxide 30 mEq/L (19-29) H 04/19/16 19:44 Creatinine 1.37 mg/dL (0.57-1.11) H 04/19/16 19:44 Est GFR ( Amer) 53 (> 60) L 04/19/16 19:44 Est GFR (Non-Af Amer) 44 (> 60) L 04/19/16 19:44 Calculated Osmolality 279 (280-300) L 04/19/16 19:44 Calcium 8.2 mg/dL (8.6-10.8) L 04/19/16 19:44 Allergies Allergy/AdvReac Type Severity Reaction Status Date / Time Cefaclor Allergy Rash Verified 04/19/16 15:06 Asenapine [From Saphris] AdvReac See Verified 04/19/16 15:06 Comments lamotrigine [From Lamictal] AdvReac Migraine Verified 04/19/16 15:06 lurasidone [From Latuda] AdvReac See Verified 04/19/16 15:06 Comments Laboratory Results WBC 9.9 K/mcL (4.3-11.1) 04/19/16 19:44 RBC 3.99 M/mcL (3.82-4.97) 04/19/16 19:44 Hgb 11.6 g/dL (11.5-15.4) 04/19/16 19:44 Hct 36.3 % (35.3-44.9) 04/19/16 19:44 MCV 91.0 fL (83.0-100.0) 04/19/16 19:44 MCH 29.1 pg (28.0-33.3) 04/19/16 19:44 MCHC 32.0 g/dL (31.6-35.5) 04/19/16 19:44 RDW 14.9 % (11.5-14.5) H 04/19/16 19:44 Plt Count 213 K/mcL (140-400) 04/19/16 19:44 MPV 8.5 fL (9.4-12.4) L 04/19/16 19:44 Immature Gran % 0.3 % (0-4) 04/19/16 19:44 Seg Neutrophils % 56.6 % 04/19/16 19:44 Lymphocytes % 31.4 % 04/19/16 19:44 Monocytes % 4.4 % 04/19/16 19:44 Eosinophils % 6.8 % 04/19/16 19:44 Basophils % 0.5 % 04/19/16 19:44 Neutrophils # 5.6 K/mcL (1.6-8.9) 04/19/16 19:44 Lymphocytes # 3.1 K/mcL (0.6-4.6) 04/19/16 19:44 Monocytes # 0.4 K/mcL (0.0-1.3) 04/19/16 19:44 Eosinophils # 0.7 K/mcL (0.0-0.6) H 04/19/16 19:44 Basophils # 0.1 K/mcL (0.0-0.2) 04/19/16 19:44 PT 10.6 Seconds (9.4-12.1) 04/19/16 19:44 INR 1.0 04/19/16 19:44 APTT 27.5 Seconds (26.0-36.0) 04/19/16 19:44 D-Dimer 1293 ng/mLFEU (0-500) H 04/19/16 19:44 Sodium 135 mEq/L (136-145) L 04/19/16 19:44 Potassium 3.5 mEq/L (3.5-4.5) 04/19/16 19:44 Chloride 93 mEq/L (98-109) L 04/19/16 19:44 Carbon Dioxide 30 mEq/L (19-29) H 04/19/16 19:44 BUN 11 mg/dL (7-20) 04/19/16 19:44 Creatinine 1.37 mg/dL (0.57-1.11) H 04/19/16 19:44 Est GFR ( Amer) 53 (> 60) L 04/19/16 19:44 Est GFR (Non-Af Amer) 44 (> 60) L 04/19/16 19:44 BUN/Creatinine Ratio 8 (6-26) 04/19/16 19:44 Glucose 93 mg/dL (70-99) 04/19/16 19:44 Calculated Osmolality 279 (280-300) L 04/19/16 19:44 Calcium 8.2 mg/dL (8.6-10.8) L 04/19/16 19:44 Troponin I 0.00 ng/mL (0-0.03) 04/19/16 19:44 B-Natriuretic Peptide 12 pg/mL (0-100) 04/19/16 19:44 Impressions Chest X-Ray 04/19/16 18:31 IMPRESSION: Low lung volumes with bibasilar atelectasis or pneumonia D/ / Elliott Rodríguez MD / Elliott Rodríguez MD Interpreting Provider: Elliott Rodríguez MD - Attending Attestation Allergies Cefaclor Allergy (Verified 04/19/16 15:06) Rash Asenapine [From Saphris] Adverse Reaction (Verified 04/19/16 15:06) See Comments patient states symptoms worsen lamotrigine [From Lamictal] Adverse Reaction (Verified 04/19/16 15:06) Migraine lurasidone [From Latuda] Adverse Reaction (Verified 04/19/16 15:06) See Comments patient states symptoms worsen Home Medications Medication Instructions Recorded Confirmed Type Albuterol Sulfate [Albuterol 2 puff IH Q4HR PRN 10/01/14 04/19/16 History Inhaler] Aripiprazole [Abilify] 30 mg PO DAILY 10/01/14 04/19/16 History Diazepam [Valium] 10 mg PO QID PRN 10/01/14 04/19/16 History Duloxetine [Cymbalta] 120 mg PO DAILY 10/01/14 04/19/16 History Esomeprazole Magnesium [Nexium] 40 mg PO DAILY 10/01/14 04/19/16 History Fluticasone/Salmeterol [Advair 1 puff IH BID 10/01/14 04/19/16 History 500-50 Diskus] Ipratropium/Albuterol Neb [Duoneb] 3 ml IH Q6HR PRN 02/03/16 04/19/16 History Oxygen 4 l NS CONT 02/03/16 04/19/16 History Tiotropium [place] [Spiriva 2 puff IH DAILY 02/03/16 04/19/16 History Respimat] Baclofen [Lioresal] 10 mg PO TID 04/19/16 04/19/16 History Furosemide [Lasix] 40 mg PO DAILY 04/19/16 04/19/16 History Prescriptions Medication Instructions Recorded Type Clindamycin [Cleocin] 150 mg PO Q6HR #20 capsule 04/22/16 Rx OxyCODONE/APAP 10/325 [Percocet 1 each PO Q6HR PRN #30 tablet 04/22/16 Rx 10/325 MG] Medications Discontinued Medications Acetaminophen (Tylenol) 650 mg PO Q6HR PRN PRN Reason: Mild Pain (1-3) Stop: 10/19/16 22:23 Albuterol Sulfate (Proventil Neb) 2.5 mg IH Q2H PRN PRN Reason: Shortness Of Breath/Wheezing Stop: 10/19/16 22:23 Albuterol/Ipratropium (Duoneb) 9 ml IH ONCE ONE PRN Reason: Protocol Stop: 04/19/16 19:00 Last Admin: 04/19/16 19:20 Dose: 9 ml Albuterol/Ipratropium (Duoneb) 3 ml IH QIDR [facility] Stop: 10/19/16 23:01 Last Admin: 04/22/16 16:05 Dose: Not Given Non-Admin Reason: Patient Refused Aripiprazole (Abilify) 30 mg PO DAILY [facility] Stop: 10/20/16 09:01 Last Admin: 04/22/16 10:30 Dose: 30 mg Aspirin (Aspirin Ec) 81 mg PO DAILY [facility] Stop: 10/20/16 09:01 Last Admin: 04/22/16 10:31 Dose: 81 mg Baclofen (Lioresal) 10 mg PO TID [facility] Stop: 10/20/16 09:01 Last Admin: 04/22/16 10:32 Dose: 10 mg Bumetanide (Bumex) 1 mg IVP ONCE ONE Stop: 04/19/16 22:23 Last Admin: 04/19/16 23:52 Dose: 1 mg Diazepam (Valium) 10 mg PO QID PRN PRN Reason: Anxiety Stop: 10/19/16 22:38 Last Admin: 04/21/16 16:07 Dose: 10 mg Docusate Sodium (Colace) 100 mg PO BID PRN PRN Reason: Constipation Stop: 10/19/16 22:23 Last Admin: 04/20/16 23:16 Dose: 100 mg Duloxetine HCl (Cymbalta) 120 mg PO DAILY [facility] Stop: 10/20/16 09:01 Last Admin: 04/22/16 10:30 Dose: 120 mg Fluconazole (Diflucan) 200 mg PO DAILY [facility] Stop: 10/19/16 23:31 Fluconazole (Diflucan) 200 mg PO QD DANG[facility]O Stop: 10/20/16 00:31 Last Admin: 04/20/16 01:02 Dose: 200 mg Fluconazole (Diflucan) 200 mg PO DAILY [facility] Stop: 10/20/16 00:31 Furosemide (Lasix) 40 mg IVP ONCE ONE Stop: 04/19/16 18:33 Last Admin: 04/19/16 19:50 Dose: 40 mg Furosemide (Lasix) 20 mg PO DAILY DANG[facility]O Stop: 10/21/16 19:01 Last Admin: 04/22/16 10:31 Dose: 20 mg Heparin Sodium (Porcine) (Heparin) 5,000 unit SQ Q12HCO DANGELO Stop: 10/21/16 06:01 Last Admin: 04/22/16 05:34 Dose: 5,000 unit Sodium Chloride (0.9 % Sodium Chloride) 1,000 mls @ 3,750 mls/hr IVC .Q16M ONE Stop: 04/19/16 20:28 Last Infusion: 04/19/16 22:52 Dose: 0 mls/hr Vancomycin HCl 1,750 mg/ (Dextrose) 250 mls @ 167 mls/hr IVPB RPHPROT DANGELO PRN Reason: Protocol Stop: 10/20/16 05:01 Vancomycin HCl 1,750 mg/ (Dextrose) 500 mls @ 333.34 mls/hr IVPB Q12H [facility] Stop: 10/20/16 04:31 Last Infusion: 04/20/16 07:15 Dose: 0 mls/hr Vancomycin HCl 1,750 mg/ (Dextrose) 250 mls @ 167 mls/hr IVPB RPHPROT DANGELO PRN Reason: Protocol Stop: 10/20/16 21:01 Vancomycin HCl 1,750 mg/ (Dextrose) 500 mls @ 333.34 mls/hr IVPB Q12H [facility] Stop: 10/20/16 23:01 Last Admin: 04/22/16 00:28 Dose: Methylprednisolone (Solu-Medrol) 125 mg IVP ONCE ONE Stop: 04/20/16 22:32 Metolazone (Zaroxolyn) 2.5 mg PO NOW STA Stop: 04/19/16 22:23 Last Admin: 04/19/16 23:51 Dose: 2.5 mg Morphine Sulfate (Morphine Sulfate) 2 mg IVP Q4HR PRN PRN Reason: Severe Pain (7-10) Stop: 10/19/16 22:23 Naloxone HCl (Narcan) 0.4 mg IVP Q2MIN PRN PRN Reason: Opioid Reversal Stop: 10/19/16 22:23 Nicotine (Nicoderm) 21 mg TD DAILY [facility] Stop: 10/19/16 22:31 Last Admin: 04/21/16 09:28 Dose: Not Given Non-Admin Reason: Patient Refused Nystatin (Mycostatin Suspension) 10 ml PO QID [facility] Stop: 10/19/16 23:31 Last Admin: 04/22/16 10:30 Dose: 10 ml Omeprazole (Prilosec) 40 mg PO DAILY@0630 [facility] PRN Reason: Protocol Stop: 10/20/16 06:31 Last Admin: 04/22/16 05:35 Dose: 40 mg Oxycodone HCl (Roxicodone) 10 mg PO Q6HR PRN PRN Reason: Moderate Pain (4-6) Stop: 10/19/16 22:23 Last Admin: 04/19/16 23:51 Dose: 10 mg Re-Assess: REDD Pain Assessment Document 04/20/16 00:36 KDM (Rec: 04/20/16 00:57 KDM [id number]) Patient's Stated Pain Level Comment patient asleep and resting Oxycodone/Acetaminophen (Percocet 10/325) 1 each PO Q6HR PRN PRN Reason: Moderate Pain Stop: 10/20/16 13:42 Last Admin: 04/22/16 10:37 Dose: 1 each Pantoprazole Sodium (Protonix) 40 mg IVP NOW STA Stop: 04/19/16 22:23 Last Admin: 04/19/16 23:52 Dose: 40 mg Pharmacy Consult (Kinetic, Aminoglycoside) 1 each .STK-MED ONE Stop: 04/22/16 16:00 Potassium Chloride (Potassium Chloride) 20 meq PO ONCE ONE Stop: 04/19/16 22:23 Last Admin: 04/19/16 23:52 Dose: 20 meq Prednisone (Prednisone) 40 mg PO DAILY DANGELO Stop: 10/20/16 09:01 Last Admin: 04/20/16 09:46 Dose: 40 mg Promethazine HCl (Phenergan) 12.5 mg IVP Q6HR PRN PRN Reason: Nausea And Vomiting Stop: 10/19/16 22:23 Senna/Docusate Sodium (Senna Plus) 1 each PO BID DANGELO PRN Reason: Protocol Stop: 10/21/16 11:31 Last Admin: 04/22/16 10:30 Dose: 1 each Vancomycin HCl (Vancocin) 0 each IVPB RPHPROT PRN PRN Reason: PULSE DOSE Stop: 10/22/16 00:30 Microbiology Results 04/20/16 16:07 Sputum Sputum Culture - Final Nursing Notes 04/22/16 20:43 Nurse Note by Yeimy Cuevas RN realized at 1900 that patient was not given her paper script for a shower chair at home. RN asked Granite Polisher Apprentice carol what she should do since it was so late this time. riprap placing supervisor carol is going to call patient at home tomorrow and see if someone can pick up attendant her script. Initialized on 04/22/16 20:43 - END OF NOTE 04/22/16 17:41 Nurse Note by Yeimy Cuevas patient called backed to RN about his discharge instructions and prescriptions. ARTURO Lawler asked if someone could come pick up attendant her prescriptions and discharge instructions. RN educated her on follow up appoint with dr. heard on 05/06/16 at 1430 and with 04/28/16 at 0945. patient stated that she took out her own IV, and placed it in the sharps. patient's significant other Quinn Bryson who had been with her all day came back to RN station and RN explained the new meds and follow up appointment with him. Patient was educated that if she anymore increase pain shortness of breath to come back to the hospital. Initialized on 04/22/16 17:41 - END OF NOTE 04/22/16 16:44 Nurse Note by Yeimy Cuevas Rn was off the floor taking a patient to an emergent MRI. RN came back to floor to discharge the patient and she was gone. Tele was taken off of her. Patient must have left the floor with IV still in, All of the patient's belongings were also gone. Family of the patient came to RN station while primary RN was off the floor attending to the emergency. Michael told the patient she would have to wait untill ARTURO Lawler got back from emergency. Patient is not in the room at all. RN spoke with chargeback specialist michael about the event. ARTURO lawler called powerhouse mechanic about the event and that patient left with in IV in her arm and without singing discharge instructions. RN is calling the patient's phone number to let her know she left without her prescriptions and follow up appointments. RN will leave a message for the patient and ask that she call us back. Initialized on 04/22/16 16:44 - END OF NOTE 04/22/16 15:26 Clinical Case Mgmt by Monie Caraballo Clinical Case Mgmt Is Patient Currently Being No Followed By Navigation What Brought The Patient To [facility]; Hypoxia; MECHELLE; BLE edema; Interstitial The Hospital lung disease Does The Patient Have A Yes Physician That They See Regularly Regular Provider Mervin Santiago Does The PT Have Any Trouble No: Patient drives Getting To Their Appointment Are There Any Meds The PT Has No: [facility] Trouble Getting Filled Monthly Home Environment House Does The Patient Plan To Yes Return Home Nebulizer Now O2 Now,Liters,Provider Is The Patient Appropriate For No Case Management Is The Patient Appropriate For No Social Work Consult Referrals Made No Is The PT Appropriate For Yes: PCM for core measure Navigation Or Payer Case Mgmt Rx for shower chair faxed to [facility]. Initialized on 04/22/16 15:26 - END OF NOTE 04/22/16 05:54 Nurse Note by Sandee Boothe patient denies needs at this time Initialized on 04/22/16 05:54 - END OF NOTE 04/21/16 22:30 Nurse Note by Sandee Boothe patient denies needs at this time Initialized on 04/21/16 22:30 - END OF NOTE 04/21/16 15:59 Clinical Case Mgmt by Monie Caraballo Clinical Case Mgmt Is Patient Currently Being No Followed By Navigation What Brought The Patient To [facility]; Hypoxia; MECHELLE; BLE edema; Interstitial [facility] lung disease Does The Patient Have A Yes Physician That They See Regularly Regular Provider Mervin Santiago Does The PT Have Any Trouble No: Patient drives Getting To Their Appointment Are There Any Meds The PT Has No: [facility] Trouble Getting Filled Monthly Home Environment House Does The Patient Plan To Yes Return Home Nebulizer Now O2 Now,Liters,Provider Is The Patient Appropriate For No Case Management Is The Patient Appropriate For No Social Work Consult Referrals Made No Is The PT Appropriate For Yes: [facility] for core measure Navigation Or Payer Case Mgmt Initialized on 04/21/16 15:59 - END OF NOTE 04/21/16 14:31 Nurse Note by Abena Mckeon A pt to go to ultrasound of the abd will give nystatin when pt returns. Initialized on 04/21/16 14:31 - END OF NOTE 04/21/16 12:09 Nurse Note by Abena Mckeon A pt was to have an appointment with dr heard tomorrow , this nurse contacted his office to let them know that she will have to reschedule d/t being in the hospital, they stated to call their office when she is d/c to reschedule . Initialized on 04/21/16 12:09 - END OF NOTE 04/21/16 10:06 Transport Report by Vilma De La Cruz Date: 04/21/16 Transport Method: Portable Cefaclor Allergy (Verified 04/19/16 15:06) Rash Asenapine [From Saphris] Adverse Reaction (Verified 04/19/16 15:06) See Comments lamotrigine [From Lamictal] Adverse Reaction (Verified 04/19/16 15:06) Migraine lurasidone [From Latuda] Adverse Reaction (Verified 04/19/16 15:06) See Comments Resuscitation Status Full Code 04/21/16 16:30 US abdomen limited [US] Routine Comment: Mode Of Transportation: Portable Reason For Exam: Elevated liver enzyme Order Doctor: Hima Cavazos Exam Performed At:: [facility] Additional Notes/Special Instructions: prep given, TRANSPORT AWARE Oxygen: Nasal Cannula Humidified 5 Mental Status: Alert Fall Risk: Isolation: Contact Precautions Nurse Required for Transport: No ___ Yes Limb Restrictions: No ___ Yes Behavioral issue/Risk for Elopement: No ___ Yes Telemetry Room Notification: Destination: MRI XRAY STRESS ULTRASOUND CT DIALYSIS ENDO OTHER: Depart Time: Nurse: Transporter: Arrive Time: Received by: ___ Return Time: Nurse: Transporter: ] Initialized on 04/21/16 10:06 - END OF NOTE 04/20/16 10:03 Transport Report by Ysabel Shafer Date: 04/20/16 Transport Method: Wheelchair Cefaclor Allergy (Verified 04/19/16 15:06) Rash Asenapine [From Saphris] Adverse Reaction (Verified 04/19/16 15:06) See Comments lamotrigine [From Lamictal] Adverse Reaction (Verified 04/19/16 15:06) Migraine lurasidone [From Latuda] Adverse Reaction (Verified 04/19/16 15:06) See Comments Resuscitation Status Full Code 04/19/16 22:35 EV echocardiogram Stat Mode Of Transportation: Portable Reason For Exam: dypsnea/hypoxia/periph edema Exam Performed At:: [facility] 04/20/16 04:03 Venous Doppler [EV venous imaging LE BI] Routine Mode Of Transportation: Wheelchair Reason For Exam: pain and swelling of LEs Order Doctor: Isaiah Hooker Exam Performed At:: [facility] Oxygen: Nasal Cannula 5 Mental Status: Alert Fall Risk: Isolation: Contact Precautions Nurse Required for Transport: No ___ Yes Limb Restrictions: No ___ Yes Behavioral issue/Risk for Elopement: No ___ Yes Telemetry Room Notification: Destination: MRI XRAY STRESS ULTRASOUND CT DIALYSIS ENDO OTHER: Depart Time: Nurse: Transporter: Arrive Time: Received by: ___ Return Time: Nurse: Transporter: ] Initialized on 04/20/16 10:03 - END OF NOTE 04/20/16 07:01 Transport Report by Daria Mcdermott Date: 04/20/16 Transport Method: Wheelchair Cefaclor Allergy (Verified 04/19/16 15:06) Rash Asenapine [From Saphris] Adverse Reaction (Verified 04/19/16 15:06) See Comments lamotrigine [From Lamictal] Adverse Reaction (Verified 04/19/16 15:06) Migraine lurasidone [From Latuda] Adverse Reaction (Verified 04/19/16 15:06) See Comments Resuscitation Status Full Code 04/19/16 18:31 ECG 12 lead ECG [ECG] Stat Mode Of Transportation: Portable Reason For Exam: chest pain Exam Performed At:: [facility] 04/19/16 22:35 EV echocardiogram Stat Mode Of Transportation: Portable Reason For Exam: dypsnea/hypoxia/periph edema Exam Performed At:: [facility] 04/20/16 04:03 Venous Doppler [EV venous imaging LE BI] Routine Mode Of Transportation: Wheelchair Reason For Exam: pain and swelling of LEs Order Doctor: Isaiah Hooker Exam Performed At:: [facility] 04/20/16 07:30 CT chest w/o contrast [CT chest wo con] [CT] Routine Mode Of Transportation: Wheelchair Reason For Exam: Hypoxic resp failure Order Doctor: Hooker,Isaiah Desmond Exam Performed At:: [facility] Allergic to Contrast: No Oxygen: Nasal Cannula Humidified 5 Mental Status: Alert Fall Risk: Isolation: Contact Precautions Nurse Required for Transport: No ___ Yes Limb Restrictions: No ___ Yes Behavioral issue/Risk for Elopement: No ___ Yes Telemetry Room Notification: Destination: MRI XRAY STRESS ULTRASOUND CT DIALYSIS ENDO OTHER: Depart Time: Nurse: Transporter: Arrive Time: Received by: ___ Return Time: Nurse: Transporter: ] Initialized on 04/20/16 07:01 - END OF NOTE 04/19/16 23:16 Nurse Note by Sandee Boothe patient vitals on admission to unit. primary RN in room at this time Initialized on 04/19/16 23:16 - END OF NOTE 04/19/16 23:08 Nurse Note by Tyaler Keane NURSE AND ELIZABETH DELVALLE IN WITH NEW ADMIT MADE AWARE OF PATIENTS ARRIVAL TO UNIT, PATIENT STABLE AT THIS TIME Initialized on 04/19/16 23:08 - END OF NOTE 04/19/16 22:48 Vascular Preliminary by Kim Stanford Bilateral lower extremity venous duplex exam completed. Negative DVT/SVT bilaterally. Initialized on 04/19/16 22:48 - END OF NOTE 04/19/16 21:01 Transport Report by José Miguel Dunn Date: 04/19/16 Transport Method: Portable Cefaclor Allergy (Verified 04/19/16 15:06) Rash Asenapine [From Saphris] Adverse Reaction (Verified 04/19/16 15:06) See Comments lamotrigine [From Lamictal] Adverse Reaction (Verified 04/19/16 15:06) Migraine lurasidone [From Latuda] Adverse Reaction (Verified 04/19/16 15:06) See Comments Resuscitation Status 04/19/16 18:31 ECG 12 lead ECG [ECG] Stat Mode Of Transportation: Portable Reason For Exam: chest pain Exam Performed At:: [facility] 04/19/16 19:23 EV venous imaging LE BI Stat Mode Of Transportation: Portable Reason For Exam: bilateral leg swelling, recent hospitalization Order Doctor: Hector Fisher Exam Performed At:: [facility] 04/19/16 20:13 CTA chest [CT angio chest] [CT] Stat Comment: Mode Of Transportation: Portable Reason For Exam: ELEVATED DDIMER, DYSPNEA Order Doctor: Hector Fisher Exam Performed At:: [facility] Additional Notes/Special Instructions: er31 needs bigger iv dr aware of labs and will hydrate Allergic to Contrast: No Oxygen: 4 Mental Status: Fall Risk: Isolation: Nurse Required for Transport: No ___ Yes Limb Restrictions: No ___ Yes Behavioral issue/Risk for Elopement: No ___ Yes Telemetry Room Notification: Destination: MRI XRAY STRESS ULTRASOUND CT DIALYSIS ENDO OTHER: Depart Time: Nurse: Transporter: Arrive Time: Received by: ___ Return Time: Nurse: Transporter: ] Initialized on 04/19/16 21:01 - END OF NOTE Orders 04/19/16 01:22 Troponin I Q6H Comment: Specimen: Send someone from the department to collect 04/19/16 18:31 12 lead ECG assessment [RC] NOW Bilateral Blood Pressures [RC] NOW Cardiac monitoring [RC] .ONCE Obtain Old EKG [RC] .ONCE Saline lock [RC] .ONCE Supplemental oxygen titration [RC] .ONCE Physician Instructions: Vital Signs Assessment [RC] PROTOCOL XR chest 1V portable [XR] Stat Mode Of Transportation: Portable Reason For Exam: chest pain Exam Performed At:: [facility] Additional Notes/Special Instructions: 31 ECG 12 lead ECG [ECG] Stat Mode Of Transportation: Portable Reason For Exam: chest pain Exam Performed At:: [facility] 04/19/16 18:32 Furosemide [Lasix] 40 mg IVP ONCE ONE 04/19/16 18:59 Ipratropium/Albuterol Neb [Duoneb] 9 ml IH ONCE ONE 04/19/16 19:23 EV venous imaging LE BI Stat Mode Of Transportation: Portable Reason For Exam: bilateral leg swelling, recent hospitalization Order Doctor: Hector Fisher Exam Performed At:: [facility] 04/19/16 19:44 Activated Partial Thrombo Time [COAG] Stat Comment: Specimen: Send someone from the department to collect B-Type Natriuretic Peptide Stat Comment: Specimen: Send someone from the department to collect Basic Metabolic Panel Stat Comment: Specimen: Send someone from the department to collect Complete Blood Count [HEME] Stat Comment: Specimen: Send someone from the department to collect D-Dimer [COAG] Stat Prothrombin Time INR [COAG] Stat Comment: Specimen: Send someone from the department to collect Troponin I Stat Comment: Specimen: Send someone from the department to collect 04/19/16 20:13 0.9 % Sodium Chloride 1,000 ml IVC 3,750 mls/hr 04/19/16 20:[address] Stat Comment: Reason for Visit: mechelle hypoxia 04/19/16 22:22 Cardiac monitoring [RC] .ONCE Vital Signs Assessment [RC] Q4H Acetaminophen [Tylenol] 650 mg PO Q6HR PRN Albuterol Neb [Proventil Neb] 2.5 mg IH Q2H PRN Bumetanide [Bumex] 1 mg IVP ONCE ONE Docusate [Colace] 100 mg PO BID PRN Metolazone [Zaroxolyn] 2.5 mg PO NOW STA Morphine [Morphine Sulfate] 2 mg IVP Q4HR PRN Naloxone [Narcan] 0.4 mg IVP Q2MIN PRN OxyCODONE Immed Rel [Roxicodone] 10 mg PO Q6HR PRN Pantoprazole [Protonix] 40 mg IVP NOW STA Potassium Chloride 20 meq PO ONCE ONE Promethazine [Phenergan] 12.5 mg IVP Q6HR PRN Resuscitation Status: Active [RES] Routine Comment: Resuscitation Status: Full Code 04/19/16 22:23 CHF discharge checklist [RC] .atdischarge Cardiac monitoring [RC] .ONCE Head of bed elevation [RC] .ONCE Head of bed elevation [RC] .ONCE Measure intake and output [RC] qshift Peripheral IV [RC] CONT Consult to Nurse Navigator [CONS] Routine Comment: Consult to Nurse Navigator [CONS] Routine Comment: 04/19/16 22:25 Bed rest [RC] .CONT Physician Instructions: Bed rest w/bathroom privileges [RC] .PRN Cardiac Monitoring Med/Surg [RC] .CONT Telemetry Reason: Acute Heart Failure Continuous pulse oximetry [RC] CONT Comment: Measure intake and output [RC] QSHIFT Placement to Observation Routine Physician Instructions: Reason for Visit: Difficulty breathing. Difficulty swallowing. Swelling of lower legs. Is VTE Prophylaxis Indicated?: Yes 04/19/16 22:26 Measure weight [RC] DAILY Oxygen via nasal cannula Nasal Cannula 2 lpm Comment: Titrate O2 to main O2 sat greater than: 92% RT has an order or consult [RC] NOW 04/19/16 22:30 Nicotine Patch [Nicoderm] 21 mg TD DAILY 04/19/16 22:32 Culture,Sputum with Gram Stain [RM] Routine Comment: CECILIO Source: Sputum Specimen: Send someone from the department to collect Specimen Description: 04/19/16 22:33 BIPAP [RC] .PRN 04/19/16 22:37 Diazepam [Valium] 10 mg PO QID PRN 04/19/16 23:00 Ipratropium/Albuterol Neb [Duoneb] 3 ml IH QIDR 04/19/16 23:10 Lactic Acid ([facility] Only) Stat Comment: Specimen: Send someone from the department to collect 04/19/16 23:30 Fluconazole [Diflucan] 200 mg PO DAILY Nystatin SUSP [Mycostatin Suspension] 10 ml PO QID 04/19/16 Breakfast Cardiac Diet Diet Modifications: 04/20/16 00:30 Fluconazole [Diflucan] 200 mg PO QD 04/20/16 01:59 B-Type Natriuretic Peptide AM 0400 Comment: Specimen: Send someone from the department to collect Comprehensive Metabolic Panel AM 0400 Comment: Specimen: Send someone from the department to collect Lipid Panel AM 0400 Comment: Specimen: Send someone from the department to collect Magnesium AM 0400 Comment: Specimen: Send someone from the department to collect Phosphorous AM 0400 Comment: Specimen: Send someone from the department to collect 04/20/16 03:08 Urinalysis reflex Microscopic [URIN] AM 0400 Comment: Specimen: Send someone from the department to collect 04/20/16 04:30 Vancomycin [Vancocin] 1,750 mg D5% in Water [Dextrose 5%] 500 ml IVPB Q12H 04/20/16 05:00 Vancomycin [Vancocin (wt based)] 1,750 mg D5% in Water [Dextrose 5%] 250 ml IVPB RPHPROT 04/20/16 06:30 Omeprazole [PriLOSEC] 40 mg PO DAILY@0630 04/20/16 07:30 CT chest w/o contrast [CT chest wo con] [CT] Routine Mode Of Transportation: Wheelchair Reason For Exam: Hypoxic resp failure Order Doctor: Isaiah Hooker Exam Performed At:: [facility] Allergic to Contrast: No 04/20/16 09:00 Aripiprazole [Abilify] 30 mg PO DAILY Aspirin Enteric Coated [Aspirin EC] 81 mg PO DAILY Baclofen [Lioresal] 10 mg PO TID Duloxetine [Cymbalta] 120 mg PO DAILY PredniSONE 40 mg PO DAILY 04/20/16 09:34 Troponin I Q6H Comment: Specimen: Send someone from the department to collect 04/20/16 13:41 OxyCODONE/APAP 10/325 [Percocet 10/325] 1 each PO Q6HR PRN 04/20/16 13:55 Troponin I Q6H Comment: Specimen: Send someone from the department to collect 04/20/16 21:00 Vancomycin [Vancocin (wt based)] 1,750 mg D5% in Water [Dextrose 5%] 250 ml IVPB RPHPROT 04/20/16 22:31 MethylPREDNISolone [Solu-MEDROL] 125 mg IVP ONCE ONE 04/20/16 22:35 EV echocardiogram Stat Mode Of Transportation: Portable Reason For Exam: dypsnea/hypoxia/periph edema Exam Performed At:: [facility] Additional Notes/Special Instructions: 04/20/16 23:00 Vancomycin [Vancocin] 1,750 mg D5% in Water [Dextrose 5%] 500 ml IVPB Q12H 04/20/16 Breakfast Fluid Restriction Diet Diet Modifications: Physician Instructions: 1500 mls per 24hrs total fluid restriction..... 04/21/16 05:20 CMP [Comprehensive Metabolic Panel] AM 0400 Comment: Specimen: Send someone from the department to collect Complete Blood Count [HEME] AM 0400 Comment: Specimen: Send someone from the department to collect Viral hepatitis panel [Hepatitis Prof.(Routine A,B,C)] AM 0400 Comment: Specimen: Send someone from the department to collect 04/21/16 06:00 Heparin 5,000 unit SQ Q12HCO 04/21/16 09:00 Fluconazole [Diflucan] 200 mg PO DAILY 04/21/16 11:30 Sennosides/Docusate Sodium [Senna Plus] 1 each PO BID 04/21/16 16:30 US abdomen limited [US] Routine Comment: Mode Of Transportation: Portable Reason For Exam: Elevated liver enzyme Order Doctor: Hima Cavazos Exam Performed At:: [facility] Additional Notes/Special Instructions: prep given, TRANSPORT AWARE 04/21/16 19:00 Furosemide [Lasix] 20 mg PO DAILY 04/21/16 22:59 Vancomycin,Trough Timed Comment: please draw prior to 2300 dose Specimen: Send someone from the department to collect 04/21/16 Breakfast Cardiac Diet Diet Modifications: 04/22/16 00:29 Vancomycin [Vancocin] 0 each IVPB RPHPROT PRN 04/22/16 05:56 Alanine Aminotransferase Routine Aspartate Amino Transferase Routine BMP [Basic Metabolic Panel] AM 0400 Comment: Specimen: Send someone from the department to collect Complete Blood Count [HEME] AM 0400 Comment: Specimen: Send someone from the department to collect 04/22/16 09:58 Vancomycin,Random Timed Comment: Specimen: Send someone from the department to collect 04/22/16 13:23 Discharge Order [DISCHARGE] Routine Comment: 04/22/16 15:59 Aminoglycoside Consult [Kinetic, Aminoglycoside] 1 each .STK-MED ONE Vital Signs Temp Pulse Resp BP Pulse Ox 04/22/16 11:51 16 93 L 04/22/16 11:13 93 L 04/22/16 11:09 98.2 F 91 16 116/80 93 L 04/22/16 06:47 97.6 F 73 16 113/74 97 04/22/16 05:53 76 18 117/71 95 04/22/16 04:20 20 92 L 04/21/16 23:17 20 93 L 04/21/16 22:00 97.4 F L 82 18 108/66 93 L 04/21/16 16:28 16 90 L 04/21/16 15:39 98 F 84 20 121/73 95 04/21/16 10:51 18 95 04/21/16 06:38 98.1 F 82 16 126/65 95 04/21/16 04:00 97.3 F L 88 18 105/65 92 L 04/21/16 03:44 18 90 L 04/21/16 00:03 18 90 L 04/20/16 21:00 97.7 F 104 20 105/72 97 04/20/16 15:56 18 93 L 04/20/16 11:39 98.4 F 81 18 115/71 91 L 04/20/16 10:36 16 92 L 04/20/16 07:00 97.6 F 74 18 108/66 94 L 04/20/16 05:34 22 92 L 04/20/16 04:00 98.4 F 89 20 125/71 92 L 04/19/16 23:55 22 93 L 04/19/16 23:15 97.8 F 91 17 145/94 95 04/19/16 22:58 18 120/63 04/19/16 19:20 17 120/63 95 04/19/16 19:09 103 22 136/85 91 L 04/19/16 15:07 97.9 F 103 22 136/85 91 L Laboratory Results 04/19/16 04/19/16 04/19/16 Range/Units 19:44 19:44 19:44 WBC 9.9 (4.3-11.1) K/mcL RBC 3.99 (3.82-4.97) M/mcL Hgb 11.6 (11.5-15.4) g/dL Hct 36.3 (35.3-44.9) % MCV 91.0 (83.0-100.0) fL MCH 29.1 (28.0-33.3) pg MCHC 32.0 (31.6-35.5) g/dL RDW 14.9 H (11.5-14.5) % Plt Count 213 (140-400) K/mcL MPV 8.5 L (9.4-12.4) fL Immature Gran % 0.3 (0-4) % Seg Neutrophils % 56.6 % Lymphocytes % 31.4 % Monocytes % 4.4 % Eosinophils % 6.8 % Basophils % 0.5 % Neutrophils # 5.6 (1.6-8.9) K/mcL Lymphocytes # 3.1 (0.6-4.6) K/mcL Monocytes # 0.4 (0.0-1.3) K/mcL Eosinophils # 0.7 H (0.0-0.6) K/mcL Basophils # 0.1 (0.0-0.2) K/mcL PT 10.6 (9.4-12.1) Seconds INR 1.0 APTT 27.5 (26.0-36.0) Seconds D-Dimer 1293 H (0-500) ng/mLFEU Sodium (136-145) mEq/L Potassium (3.5-4.5) mEq/L Chloride (98-109) mEq/L Carbon Dioxide (19-29) mEq/L BUN (7-20) mg/dL Creatinine (0.57-1.11) mg/dL Est GFR ( Amer) (> 60) Est GFR (Non-Af Amer) (> 60) BUN/Creatinine Ratio (6-26) Glucose (70-99) mg/dL Calculated Osmolality (280-300) Lactic Acid (0.5-2.2) mmol/L Calcium (8.6-10.8) mg/dL Phosphorus (2.3-4.7) mg/dL Magnesium (1.6-2.6) mg/dL Total Bilirubin (0.2-1.2) mg/dL AST (5-34) Units/L ALT (0-55) Units/L Alkaline Phosphatase (38-126) Units/L Troponin I (0-0.03) ng/mL B-Natriuretic Peptide 12 (0-100) pg/mL Serum Total Protein (6.0-8.3) g/dL Albumin (3.5-5.0) g/dL Globulin (2.4-3.5) g/dL Albumin/Globulin Ratio (1.1-2.2) Triglycerides (< 150) mg/dL Cholesterol (< 200) mg/dL LDL Cholesterol, Calc (0-99) mg/dL VLDL Cholesterol, Calc (< 31) mg/dL HDL Cholesterol (40-59) mg/dL Cholesterol/HDL Ratio (0-4.9) Urine Color (Yellow) Urine Clarity (Clear) Urine pH (5.0-8.0) pH Units Ur Specific [place] (1.010-1.025) Urine Protein (Neg-Trace) mg/dL Urine Glucose (UA) (Normal) mg/dL Urine Ketones (Negative) mg/dL Urine Blood (Negative) Urine Nitrite (Negative) Urine Bilirubin (Negative) Urine Urobilinogen (Normal) mg/dL Ur Leukocyte Esterase (Negative) Vancomycin Trough (10-20) mcg/mL Random Vancomycin mcg/mL Hepatitis A IgM Ab (Nonreactive) Hep Bs Antigen (Nonreactive) Hep B Core IgM Ab (Nonreactive) Hepatitis C Ab Screen (Nonreactive) 04/19/16 04/19/16 04/19/16 Range/Units 19:44 19:44 23:10 WBC (4.3-11.1) K/mcL RBC (3.82-4.97) M/mcL Hgb (11.5-15.4) g/dL Hct (35.3-44.9) % MCV (83.0-100.0) fL MCH (28.0-33.3) pg MCHC (31.6-35.5) g/dL RDW (11.5-14.5) % Plt Count (140-400) K/mcL MPV (9.4-12.4) fL Immature Gran % (0-4) % Seg Neutrophils % % Lymphocytes % % Monocytes % % Eosinophils % % Basophils % % Neutrophils # (1.6-8.9) K/mcL Lymphocytes # (0.6-4.6) K/mcL Monocytes # (0.0-1.3) K/mcL Eosinophils # (0.0-0.6) K/mcL Basophils # (0.0-0.2) K/mcL PT (9.4-12.1) Seconds INR APTT (26.0-36.0) Seconds D-Dimer (0-500) ng/mLFEU Sodium 135 L (136-145) mEq/L Potassium 3.5 (3.5-4.5) mEq/L Chloride 93 L (98-109) mEq/L Carbon Dioxide 30 H (19-29) mEq/L BUN 11 (7-20) mg/dL Creatinine 1.37 H (0.57-1.11) mg/dL Est GFR ( Amer) 53 L (> 60) Est GFR (Non-Af Amer) 44 L (> 60) BUN/Creatinine Ratio 8 (6-26) Glucose 93 (70-99) mg/dL Calculated Osmolality 279 L (280-300) Lactic Acid 0.7 (0.5-2.2) mmol/L Calcium 8.2 L (8.6-10.8) mg/dL Phosphorus (2.3-4.7) mg/dL Magnesium (1.6-2.6) mg/dL Total Bilirubin (0.2-1.2) mg/dL AST (5-34) Units/L ALT (0-55) Units/L Alkaline Phosphatase (38-126) Units/L Troponin I 0.00 (0-0.03) ng/mL B-Natriuretic Peptide (0-100) pg/mL Serum Total Protein (6.0-8.3) g/dL Albumin (3.5-5.0) g/dL Globulin (2.4-3.5) g/dL Albumin/Globulin Ratio (1.1-2.2) Triglycerides (< 150) mg/dL Cholesterol (< 200) mg/dL LDL Cholesterol, Calc (0-99) mg/dL VLDL Cholesterol, Calc (< 31) mg/dL HDL Cholesterol (40-59) mg/dL Cholesterol/HDL Ratio (0-4.9) Urine Color (Yellow) Urine Clarity (Clear) Urine pH (5.0-8.0) pH Units Ur Specific [place] (1.010-1.025) Urine Protein (Neg-Trace) mg/dL Urine Glucose (UA) (Normal) mg/dL Urine Ketones (Negative) mg/dL Urine Blood (Negative) Urine Nitrite (Negative) Urine Bilirubin (Negative) Urine Urobilinogen (Normal) mg/dL Ur Leukocyte Esterase (Negative) Vancomycin Trough (10-20) mcg/mL Random Vancomycin mcg/mL Hepatitis A IgM Ab (Nonreactive) Hep Bs Antigen (Nonreactive) Hep B Core IgM Ab (Nonreactive) Hepatitis C Ab Screen (Nonreactive) 04/20/16 04/20/16 04/20/16 Range/Units 01:59 01:59 01:59 WBC (4.3-11.1) K/mcL RBC (3.82-4.97) M/mcL Hgb (11.5-15.4) g/dL Hct (35.3-44.9) % MCV (83.0-100.0) fL MCH (28.0-33.3) pg MCHC (31.6-35.5) g/dL RDW (11.5-14.5) % Plt Count (140-400) K/mcL MPV (9.4-12.4) fL Immature Gran % (0-4) % Seg Neutrophils % % Lymphocytes % % Monocytes % % Eosinophils % % Basophils % % Neutrophils # (1.6-8.9) K/mcL Lymphocytes # (0.6-4.6) K/mcL Monocytes # (0.0-1.3) K/mcL Eosinophils # (0.0-0.6) K/mcL Basophils # (0.0-0.2) K/mcL PT (9.4-12.1) Seconds INR APTT (26.0-36.0) Seconds D-Dimer (0-500) ng/mLFEU Sodium 141 (136-145) mEq/L Potassium 3.4 L (3.5-4.5) mEq/L Chloride 100 (98-109) mEq/L Carbon Dioxide 31 H (19-29) mEq/L BUN 12 (7-20) mg/dL Creatinine 1.33 H (0.57-1.11) mg/dL Est GFR ( Amer) 55 L (> 60) Est GFR (Non-Af Amer) 45 L (> 60) BUN/Creatinine Ratio 9 (6-26) Glucose 105 H (70-99) mg/dL Calculated Osmolality 292 (280-300) Lactic Acid (0.5-2.2) mmol/L Calcium 8.2 L (8.6-10.8) mg/dL Phosphorus 4.9 H (2.3-4.7) mg/dL Magnesium 2.1 (1.6-2.6) mg/dL Total Bilirubin 0.2 (0.2-1.2) mg/dL AST 61 H (5-34) Units/L ALT 77 H (0-55) Units/L Alkaline Phosphatase 67 (38-126) Units/L Troponin I 0.00 (0-0.03) ng/mL B-Natriuretic Peptide < 10 (0-100) pg/mL Serum Total Protein 6.4 (6.0-8.3) g/dL Albumin 2.9 L (3.5-5.0) g/dL Globulin 3.5 (2.4-3.5) g/dL Albumin/Globulin Ratio 0.8 L (1.1-2.2) Triglycerides 82 (< 150) mg/dL Cholesterol 184 (< 200) mg/dL LDL Cholesterol, Calc 122 H (0-99) mg/dL VLDL Cholesterol, Calc 16 (< 31) mg/dL HDL Cholesterol 46 (40-59) mg/dL Cholesterol/HDL Ratio 4.0 (0-4.9) Urine Color (Yellow) Urine Clarity (Clear) Urine pH (5.0-8.0) pH Units Ur Specific [place] (1.010-1.025) Urine Protein (Neg-Trace) mg/dL Urine Glucose (UA) (Normal) mg/dL Urine Ketones (Negative) mg/dL Urine Blood (Negative) Urine Nitrite (Negative) Urine Bilirubin (Negative) Urine Urobilinogen (Normal) mg/dL Ur Leukocyte Esterase (Negative) Vancomycin Trough (10-20) mcg/mL Random Vancomycin mcg/mL Hepatitis A IgM Ab (Nonreactive) Hep Bs Antigen (Nonreactive) Hep B Core IgM Ab (Nonreactive) Hepatitis C Ab Screen (Nonreactive) 04/20/16 04/20/16 04/20/16 Range/Units 03:08 09:34 13:55 WBC (4.3-11.1) K/mcL RBC (3.82-4.97) M/mcL Hgb (11.5-15.4) g/dL Hct (35.3-44.9) % MCV (83.0-100.0) fL MCH (28.0-33.3) pg MCHC (31.6-35.5) g/dL RDW (11.5-14.5) % Plt Count (140-400) K/mcL MPV (9.4-12.4) fL Immature Gran % (0-4) % Seg Neutrophils % % Lymphocytes % % Monocytes % % Eosinophils % % Basophils % % Neutrophils # (1.6-8.9) K/mcL Lymphocytes # (0.6-4.6) K/mcL Monocytes # (0.0-1.3) K/mcL Eosinophils # (0.0-0.6) K/mcL Basophils # (0.0-0.2) K/mcL PT (9.4-12.1) Seconds INR APTT (26.0-36.0) Seconds D-Dimer (0-500) ng/mLFEU Sodium (136-145) mEq/L Potassium (3.5-4.5) mEq/L Chloride (98-109) mEq/L Carbon Dioxide (19-29) mEq/L BUN (7-20) mg/dL Creatinine (0.57-1.11) mg/dL Est GFR ( Amer) (> 60) Est GFR (Non-Af Amer) (> 60) BUN/Creatinine Ratio (6-26) Glucose (70-99) mg/dL Calculated Osmolality (280-300) Lactic Acid (0.5-2.2) mmol/L Calcium (8.6-10.8) mg/dL Phosphorus (2.3-4.7) mg/dL Magnesium (1.6-2.6) mg/dL Total Bilirubin (0.2-1.2) mg/dL AST (5-34) Units/L ALT (0-55) Units/L Alkaline Phosphatase (38-126) Units/L Troponin I 0.00 0.00 (0-0.03) ng/mL B-Natriuretic Peptide (0-100) pg/mL Serum Total Protein (6.0-8.3) g/dL Albumin (3.5-5.0) g/dL Globulin (2.4-3.5) g/dL Albumin/Globulin Ratio (1.1-2.2) Triglycerides (< 150) mg/dL Cholesterol (< 200) mg/dL LDL Cholesterol, Calc (0-99) mg/dL VLDL Cholesterol, Calc (< 31) mg/dL HDL Cholesterol (40-59) mg/dL Cholesterol/HDL Ratio (0-4.9) Urine Color Yellow (Yellow) Urine Clarity Clear (Clear) Urine pH 6.5 (5.0-8.0) pH Units Ur Specific [place] 1.007 L (1.010-1.025) Urine Protein Negative (Neg-Trace) mg/dL Urine Glucose (UA) Normal (Normal) mg/dL Urine Ketones Negative (Negative) mg/dL Urine Blood Negative (Negative) Urine Nitrite Negative (Negative) Urine Bilirubin Negative (Negative) Urine Urobilinogen Normal (Normal) mg/dL Ur Leukocyte Esterase Negative (Negative) Vancomycin Trough (10-20) mcg/mL Random Vancomycin mcg/mL Hepatitis A IgM Ab (Nonreactive) Hep Bs Antigen (Nonreactive) Hep B Core IgM Ab (Nonreactive) Hepatitis C Ab Screen (Nonreactive) 04/21/16 04/21/16 04/21/16 Range/Units 05:20 05:20 05:20 WBC 10.2 (4.3-11.1) K/mcL RBC 3.68 L (3.82-4.97) M/mcL Hgb 10.7 L (11.5-15.4) g/dL Hct 33.3 L (35.3-44.9) % MCV 90.5 (83.0-100.0) fL MCH 29.1 (28.0-33.3) pg MCHC 32.1 (31.6-35.5) g/dL RDW 15.0 H (11.5-14.5) % Plt Count 193 (140-400) K/mcL MPV 8.8 L (9.4-12.4) fL Immature Gran % 0.3 (0-4) % Seg Neutrophils % 68.9 % Lymphocytes % 24.6 % Monocytes % 4.9 % Eosinophils % 0.9 % Basophils % 0.4 % Neutrophils # 7.0 (1.6-8.9) K/mcL Lymphocytes # 2.5 (0.6-4.6) K/mcL Monocytes # 0.5 (0.0-1.3) K/mcL Eosinophils # 0.1 (0.0-0.6) K/mcL Basophils # 0.0 (0.0-0.2) K/mcL PT (9.4-12.1) Seconds INR APTT (26.0-36.0) Seconds D-Dimer (0-500) ng/mLFEU Sodium 136 (136-145) mEq/L Potassium 3.4 L (3.5-4.5) mEq/L Chloride 100 (98-109) mEq/L Carbon Dioxide 24 (19-29) mEq/L BUN 17 (7-20) mg/dL Creatinine 1.19 H (0.57-1.11) mg/dL Est GFR ( Amer) > 60 (> 60) Est GFR (Non-Af Amer) 51 L (> 60) BUN/Creatinine Ratio 14 (6-26) Glucose 120 H (70-99) mg/dL Calculated Osmolality 285 (280-300) Lactic Acid (0.5-2.2) mmol/L Calcium 8.3 L (8.6-10.8) mg/dL Phosphorus (2.3-4.7) mg/dL Magnesium (1.6-2.6) mg/dL Total Bilirubin 0.3 (0.2-1.2) mg/dL AST 104 H (5-34) Units/L ALT 178 H (0-55) Units/L Alkaline Phosphatase 65 (38-126) Units/L Troponin I (0-0.03) ng/mL B-Natriuretic Peptide (0-100) pg/mL Serum Total Protein 6.5 (6.0-8.3) g/dL Albumin 2.8 L (3.5-5.0) g/dL Globulin 3.7 H (2.4-3.5) g/dL Albumin/Globulin Ratio 0.8 L (1.1-2.2) Triglycerides (< 150) mg/dL Cholesterol (< 200) mg/dL LDL Cholesterol, Calc (0-99) mg/dL VLDL Cholesterol, Calc (< 31) mg/dL HDL Cholesterol (40-59) mg/dL Cholesterol/HDL Ratio (0-4.9) Urine Color (Yellow) Urine Clarity (Clear) Urine pH (5.0-8.0) pH Units Ur Specific [place] (1.010-1.025) Urine Protein (Neg-Trace) mg/dL Urine Glucose (UA) (Normal) mg/dL Urine Ketones (Negative) mg/dL Urine Blood (Negative) Urine Nitrite (Negative) Urine Bilirubin (Negative) Urine Urobilinogen (Normal) mg/dL Ur Leukocyte Esterase (Negative) Vancomycin Trough (10-20) mcg/mL Random Vancomycin mcg/mL Hepatitis A IgM Ab Nonreactive (Nonreactive) Hep Bs Antigen Nonreactive (Nonreactive) Hep B Core IgM Ab Nonreactive (Nonreactive) Hepatitis C Ab Screen Nonreactive (Nonreactive) 04/21/16 04/22/16 04/22/16 Range/Units 22:59 05:56 05:56 WBC 7.6 (4.3-11.1) K/mcL RBC 3.95 (3.82-4.97) M/mcL Hgb 11.3 L (11.5-15.4) g/dL Hct 35.8 (35.3-44.9) % MCV 90.6 (83.0-100.0) fL MCH 28.6 (28.0-33.3) pg MCHC 31.6 (31.6-35.5) g/dL RDW 15.1 H (11.5-14.5) % Plt Count 205 (140-400) K/mcL MPV 8.8 L (9.4-12.4) fL Immature Gran % 0.3 (0-4) % Seg Neutrophils % 37.9 % Lymphocytes % 49.9 % Monocytes % 5.4 % Eosinophils % 5.8 % Basophils % 0.7 % Neutrophils # 2.9 (1.6-8.9) K/mcL Lymphocytes # 3.8 (0.6-4.6) K/mcL Monocytes # 0.4 (0.0-1.3) K/mcL Eosinophils # 0.4 (0.0-0.6) K/mcL Basophils # 0.1 (0.0-0.2) K/mcL PT (9.4-12.1) Seconds INR APTT (26.0-36.0) Seconds D-Dimer (0-500) ng/mLFEU Sodium 139 (136-145) mEq/L Potassium 3.9 (3.5-4.5) mEq/L Chloride 100 (98-109) mEq/L Carbon Dioxide 31 H (19-29) mEq/L BUN 19 (7-20) mg/dL Creatinine 1.24 H (0.57-1.11) mg/dL Est GFR ( Amer) 59 L (> 60) Est GFR (Non-Af Amer) 49 L (> 60) BUN/Creatinine Ratio 15 (6-26) Glucose 104 H (70-99) mg/dL Calculated Osmolality 291 (280-300) Lactic Acid (0.5-2.2) mmol/L Calcium 8.9 (8.6-10.8) mg/dL Phosphorus (2.3-4.7) mg/dL Magnesium (1.6-2.6) mg/dL Total Bilirubin (0.2-1.2) mg/dL AST 100 H (5-34) Units/L ALT 191 H (0-55) Units/L Alkaline Phosphatase (38-126) Units/L Troponin I (0-0.03) ng/mL B-Natriuretic Peptide (0-100) pg/mL Serum Total Protein (6.0-8.3) g/dL Albumin (3.5-5.0) g/dL Globulin (2.4-3.5) g/dL Albumin/Globulin Ratio (1.1-2.2) Triglycerides (< 150) mg/dL Cholesterol (< 200) mg/dL LDL Cholesterol, Calc (0-99) mg/dL VLDL Cholesterol, Calc (< 31) mg/dL HDL Cholesterol (40-59) mg/dL Cholesterol/HDL Ratio (0-4.9) Urine Color (Yellow) Urine Clarity (Clear) Urine pH (5.0-8.0) pH Units Ur Specific [place] (1.010-1.025) Urine Protein (Neg-Trace) mg/dL Urine Glucose (UA) (Normal) mg/dL Urine Ketones (Negative) mg/dL Urine Blood (Negative) Urine Nitrite (Negative) Urine Bilirubin (Negative) Urine Urobilinogen (Normal) mg/dL Ur Leukocyte Esterase (Negative) Vancomycin Trough 28.0 H* (10-20) mcg/mL Random Vancomycin mcg/mL Hepatitis A IgM Ab (Nonreactive) Hep Bs Antigen (Nonreactive) Hep B Core IgM Ab (Nonreactive) Hepatitis C Ab Screen (Nonreactive) 04/22/16 Range/Units 09:58 WBC (4.3-11.1) K/mcL RBC (3.82-4.97) M/mcL Hgb (11.5-15.4) g/dL Hct (35.3-44.9) % MCV (83.0-100.0) fL MCH (28.0-33.3) pg MCHC (31.6-35.5) g/dL RDW (11.5-14.5) % Plt Count (140-400) K/mcL MPV (9.4-12.4) fL Immature Gran % (0-4) % Seg Neutrophils % % Lymphocytes % % Monocytes % % Eosinophils % % Basophils % % Neutrophils # (1.6-8.9) K/mcL Lymphocytes # (0.6-4.6) K/mcL Monocytes # (0.0-1.3) K/mcL Eosinophils # (0.0-0.6) K/mcL Basophils # (0.0-0.2) K/mcL PT (9.4-12.1) Seconds INR APTT (26.0-36.0) Seconds D-Dimer (0-500) ng/mLFEU Sodium (136-145) mEq/L Potassium (3.5-4.5) mEq/L Chloride (98-109) mEq/L Carbon Dioxide (19-29) mEq/L BUN (7-20) mg/dL Creatinine (0.57-1.11) mg/dL Est GFR ( Amer) (> 60) Est GFR (Non-Af Amer) (> 60) BUN/Creatinine Ratio (6-26) Glucose (70-99) mg/dL Calculated Osmolality (280-300) Lactic Acid (0.5-2.2) mmol/L Calcium (8.6-10.8) mg/dL Phosphorus (2.3-4.7) mg/dL Magnesium (1.6-2.6) mg/dL Total Bilirubin (0.2-1.2) mg/dL AST (5-34) Units/L ALT (0-55) Units/L Alkaline Phosphatase (38-126) Units/L Troponin I (0-0.03) ng/mL B-Natriuretic Peptide (0-100) pg/mL Serum Total Protein (6.0-8.3) g/dL Albumin (3.5-5.0) g/dL Globulin (2.4-3.5) g/dL Albumin/Globulin Ratio (1.1-2.2) Triglycerides (< 150) mg/dL Cholesterol (< 200) mg/dL LDL Cholesterol, Calc (0-99) mg/dL VLDL Cholesterol, Calc (< 31) mg/dL HDL Cholesterol (40-59) mg/dL Cholesterol/HDL Ratio (0-4.9) Urine Color (Yellow) Urine Clarity (Clear) Urine pH (5.0-8.0) pH Units Ur Specific [place] (1.010-1.025) Urine Protein (Neg-Trace) mg/dL Urine Glucose (UA) (Normal) mg/dL Urine Ketones (Negative) mg/dL Urine Blood (Negative) Urine Nitrite (Negative) Urine Bilirubin (Negative) Urine Urobilinogen (Normal) mg/dL Ur Leukocyte Esterase (Negative) Vancomycin Trough (10-20) mcg/mL Random Vancomycin 15.4 mcg/mL Hepatitis A IgM Ab (Nonreactive) Hep Bs Antigen (Nonreactive) Hep B Core IgM Ab (Nonreactive) Hepatitis C Ab Screen (Nonreactive) Assessments/Treatments 12 lead ECG assessment Start: 04/19/16 18: 31 Freq: NOW Status: Complete Document 04/19/16 18:45 RAN (Rec: 04/19/16 18:52 RAN [id number]) EKG Time EKG Completed 18:45 EKG performed by Chiquita EKG shown to and signed by DR Cano Bilateral Blood Pressures Start: 04/19/16 18: 31 Freq: NOW Status: Discharge Document 04/19/16 19:48 TAB (Rec: 04/19/16 19:48 TAB [id number]) Cardiac Monitoring Med/Surg Start: 04/19/16 22: 25 Freq: .CONT Status: Discharge Document 04/20/16 04:12 KDM (Rec: 04/20/16 04:42 KDM [id number]) Cardiac Monitoring Monitor Number [id number] Strip placed in Chart Yes Alarms/Limits Heart Rate 86 EKG Method Telemetry Rhythm Sinus Rhythm [place] Interval 0.12 QRS Interval 0.10 QT Interval 0.26 Document 04/20/16 18:33 KDM (Rec: 04/20/16 18:59 KDM [id number]) Cardiac Monitoring Monitor Number [id number] Strip placed in Chart Yes Alarms/Limits Heart Rate 98 EKG Method Telemetry Rhythm Sinus Tachycardia W[place] Interval 0.14 QRS Interval 0.10 QT Interval 0.26 Document 04/21/16 04:05 KDM (Rec: 04/21/16 04:31 KDM [id number]) Cardiac Monitoring Monitor Number [id number] Strip placed in Chart Yes Alarms/Limits Heart Rate 90 EKG Method Telemetry Rhythm Sinus Rhythm W[place] Interval 0.11 QRS Interval 0.12 QT Interval 0.25 Document 04/21/16 18:24 KDM (Rec: 04/21/16 19:32 KDM [id number]) Cardiac Monitoring Monitor Number [id number] Strip placed in Chart Yes Alarms/Limits Heart Rate 80 EKG Method Telemetry Rhythm Sinus Rhythm W[place] Interval 0.12 QRS Interval 0.09 QT Interval 0.24 Document 04/22/16 04:03 KDM (Rec: 04/22/16 07:49 KDM [id number]) Cardiac Monitoring Monitor Number [id number] Strip placed in Chart Yes Alarms/Limits Heart Rate 81 EKG Method Telemetry Rhythm Sinus Rhythm W[place] Interval 0.16 QRS Interval 0.09 QT Interval 0.25 Cardiac monitoring Start: 04/19/16 22: 22 Freq: .ONCE Status: Discharge Document 04/20/16 12:09 JMP (Rec: 04/20/16 12:10 JMP [id number]) Alarms/Limits HR Alarm 135/40 Heart Rate 84 EKG Method Telemetry Rhythm Sinus Rhythm W[place] Interval 0.15 QRS Interval 0.05 QT Interval 0.36 Document 04/22/16 09:00 KMR (Rec: 04/22/16 12:11 KMR [id number]) Cardiac Monitoring Monitor Number [id number] Strip placed in Chart Yes Alarms/Limits HR Alarm 135/40 Heart Rate 66 EKG Method Telemetry Rhythm Sinus Rhythm W[place] Interval 0.14 QRS Interval 0.05 QT Interval 0.38 Document 04/22/16 12:11 KMR (Rec: 04/22/16 12:11 KMR [id number]) Cardiac Monitoring Monitor Number [id number] Strip placed in Chart Yes Alarms/Limits HR Alarm 135/40 Heart Rate 90 EKG Method Telemetry Rhythm Sinus Rhythm W[place] Interval 0.15 QRS Interval 0.06 QT Interval 0.31 Collect Specimen Start: 04/19/16 15: 09 Freq: Status: Discharge Document 04/19/16 18:31 TAB (Rec: 04/19/16 19:55 TAB [id number]) Collect Specimen Urine specimen collected as ordered Yes Urine specimen collected via Clean catch kit Urine tubes collected Urinalysis tube Urine culture tube Red top tube Specimen(s) labled in presence of Yes patient Specimen sent to lab via Tube system Critical Value Reporting Start: 04/19/16 23: 13 Freq: .PRN Status: Discharge Document 04/22/16 00:15 KDM (Rec: 04/22/16 00:25 KDM [id number]) Critical Values Reporting Test(s) and Results vanc trough 28.0 Time Results Received 00:15 Lab Results Repeated Back Yes Provider Notified Yes Time Provider Contacted 00:24 Provider Name Time Provider Responded 00:25 Number of Attempts to Reach Provider 1 New Orders Received No Branch Rental Manager Nutrition Assessment Start: 04/20/16 09: 49 Freq: Status: Discharge Document 04/20/16 09:49 LF (Rec: 04/20/16 10:01 LF [id number]) Nutritional Assessment - Branch Rental Manager Subjective Data: 35 yof admit w/ bilateral leg swelling and trouble swallowing. Patient recently diagnosed w/ interstitial lung disease. Treating oral thrush over the past week or so. Patient reports difficulty swallow r/t oral thrush which is much improved. Reports good appetite. hx; COPD, GERD, migraines, Renal disease, Anxiety, bipolar, depression, +tobacco and marijuana use labs; k 3.4, phos 4.9, alb 2.9 meds; steroids, prilosec, antiobiotics, diflucan, nystatin, colace Anderson Body Weight 125 Comment ht; 5'5 cbw; 263# ubs; 245-260# Diet cardiac 1500 ml FR Adequate Intake Prior to Admission Yes Feeding Ability Independent Calories Needed to Maintain Weight 25-28 kcal/kg IBW = 5144-2250 Estimated Protein Needs 1.2-1.4 gm/kg IBW = 68-80 Estimated Fluid Needs 1500 ml/d Initial assessment face to face time Altered nutrition related lab with patient (mins) values Nutrition Problem PES Statement r/t bilateral pitting edema of unknown etiology aeb hypokalemia and hypoalbuminemia Initial Assessment Face to face time 15 with patient (mins) (minutes) Nutrition Intervention: Meals and Snacks Comment 1. Maintain cardiac diet w/ fluid restriction - assisted patient w/ menu selections and she chooses adequate protein rich foods Nutrition Monitoring: Energy Intake Electrolyte and Renal Profile Protein Profile Comment f/u; 04/23 Discharge Assessment Start: 04/19/16 21: 49 Freq: Status: Discharge Document 04/22/16 17:32 KMR (Rec: 04/22/16 17:38 KMR [id number]) Discharge Assessment Discharge Disposition Home Mode of Discharge Ambulated Accompanied By Significant Other Belongings sent with patient Yes Services Needed at Discharge Oxygen Therapy Summary of Care Provided Yes Patient was provided information on Yes accessing patient portal Level Of Consciousness Awake Alert Appropriate Follows Commands Eating (Feeding) Ability Independent Bathing Ability Independent Upper Body Dressing Ability Independent Lower Body Dressing Ability Minimum Assistance Ambulation Ability Standby Assistance Toileting Ability Minimum Assistance Date of Last Bowel Movement 04/19/16 Bowel Continent Bladder Continent Adaptive Devices on Discharge Bedside Commode Doctor's Appointment Made Yes Patient Education Given Yes Discharge Instructions Given To Spouse Discharge Instructions Address Diet Medications Symptoms Worsening Follow Up Labs Problems Patient instructed regarding new Yes medications and to provide the list to their Primary Care Provider Patient instructed to carry their Yes medication list with them at all times in case of emergency Prescriptions Given To Patient Was patient discharged on Warfarin for No confirmed VTE diagnosis? Was patient discharged with diagnosis of No ischemic or hemmorrhagic stroke? Flu Vaccine Given No Reason Flu Vaccine Not Given Patient Refused Nursing Summary Patient left the floor and went home before signing her discharge instructions. Patient told Charge that she was going to ripe out her IV if the RN did not come in to discharge her. Charge told her RN Nuris was off the floor in an emergency and she would have to wait untill RN Nuris got back to discharge her. RN Nuris came back to floor and patient was gone. Tele was off and belonging were out of room. RN called the patient at home and educated her on her new prescriptions and follow up appointments. Patient has her significant coming to get prescriptions and he wrote down follow up appointments. Patient refused the flu vaccine and stated " i took my iv out and put it in the sharps. ED Discharge Assessment Start: 04/19/16 15: 09 Freq: Status: Discharge Document 04/19/16 22:58 TAB (Rec: 04/19/16 23:00 TAB [id number]) ED Discharge Assessment ED Discharge Disposition Admitted ED Condition on Discharge Fair Med Rec/Patient Pharmacy Completed? No Admitted to 2NE Bed assigned 2 NE 35 Transported by validation technician Transported with oxygen IV continuing medication Report given to Nurse Care transferred to (name/credentials) Ashleigh MORRIS Information relayed patient's care treatments medications given condition Pain Scale 3 Pain Scale Used Standard (1-10) Blood Pressure 120/63 Heart rate 87 Respiratory Rate 18 Oxygen Delivery Nasal Cannula Oxygen Saturation 4 Critical Care Minutes 0 ED Nontraumatic Extremity Injury Assmnt Start: 04/19/16 15: 09 Freq: Status: Complete Document 04/19/16 19:09 TAB (Rec: 04/19/16 19:23 TAB [id number]) Extremity Problem Nontraumatic Symptoms/Complaint Extremity Pain Extremity Swelling Onset "about a week" Consistency Constant Radiation Proximal Context Unknown Improves With Nothing Worsens With Range of Motion Weight Bearing Walking Associated Symptoms Denies Other Symptoms Level Of Consciousness Awake Alert Appropriate Follows Commands Patient Orientation Person Place Name Age Date of Respiratory Depth Normal Respiratory Effort Non-Labored Respiratory Pattern Regular Bilateral Leg Edema Degree 2+ ED Comment "legs started swelling about a wek ago, stomach started hurting about the " Fall Precautions Acute Start: 04/19/16 23: 13 Freq: Q12H Status: Discharge Document 04/20/16 00:15 KDM (Rec: 04/20/16 00:19 KDM [id number]) [facility] Fall Risk Assessment Tool Age less than60 years age (0 points) Fall History No falls within last 6 months (0 points) Elimination, Bowel, and Urine N/A (0 pts) Medications: Includes MANAGER INSURANCE/opiates, On 2 or more high fall risk antivulsants, ant-hypertensives, drugs (5 points) diuretics, hypnotics, Patient Care Equipment: Any equipment One present (1 point) that tethers patient (e.g. IV infusions, chest tube, indwelling Mobility N/A (0 points) Cognition N/A (0 points) Total Fall Risk Score 6 Fall Risk Category Moderate Risk (6-13) Fall Risk Interventions Low Risk Interventions Bed in lowest position Top side rails up x 2 Secure brake on bed Use properly fitting non-skid footwear Call light and frequently needed objects within reach Encourage patients/families to call for assistance when needed Fall education including risk assessment, injury risk and routine/ Inspect environment for safety and communication risk Supervise and assist with toileting/ADLs as needed Moderate Risk Interventions Institue fall-risk tooklit ( yellow flag, yellow non-skid socks and High Risk Interventions Remain with patient while toileting Document 04/20/16 08:26 JMP (Rec: 04/20/16 08:30 JMP [id number]) [facility] Fall Risk Assessment Tool Age less than60 years age (0 points) Fall History No falls within last 6 months (0 points) Elimination, Bowel, and Urine N/A (0 pts) Medications: Includes MANAGER INSURANCE/opiates, On 2 or more high fall risk antivulsants, ant-hypertensives, drugs (5 points) diuretics, hypnotics, Patient Care Equipment: Any equipment One present (1 point) that tethers patient (e.g. IV infusions, chest tube, indwelling Mobility N/A (0 points) Cognition N/A (0 points) Total Fall Risk Score 6 Fall Risk Category Moderate Risk (6-13) Fall Risk Interventions Low Risk Interventions Bed in lowest position Top side rails up x 2 Secure brake on bed Use properly fitting non-skid footwear Call light and frequently needed objects within reach Encourage patients/families to call for assistance when needed Fall education including risk assessment, injury risk and routine/ Inspect environment for safety and communication risk Supervise and assist with toileting/ADLs as needed Document 04/20/16 21:45 KDM (Rec: 04/21/16 01:33 KDM [id number]) [facility] Fall Risk Assessment Tool Age less than60 years age (0 points) Fall History No falls within last 6 months (0 points) Elimination, Bowel, and Urine N/A (0 pts) Medications: Includes MANAGER INSURANCE/opiates, On 2 or more high fall risk antivulsants, ant-hypertensives, drugs (5 points) diuretics, hypnotics, Patient Care Equipment: Any equipment One present (1 point) that tethers patient (e.g. IV infusions, chest tube, indwelling Mobility N/A (0 points) Cognition N/A (0 points) Total Fall Risk Score 6 Fall Risk Category Moderate Risk (6-13) Fall Risk Interventions Low Risk Interventions Bed in lowest position Top side rails up x 2 Secure brake on bed Use properly fitting non-skid footwear Call light and frequently needed objects within reach Encourage patients/families to call for assistance when needed Fall education including risk assessment, injury risk and routine/ Inspect environment for safety and communication risk Supervise and assist with toileting/ADLs as needed Moderate Risk Interventions Institue fall-risk tooklit ( yellow flag, yellow non-skid socks and High Risk Interventions Remain with patient while toileting Document 04/21/16 12:57 DAM (Rec: 04/21/16 12:58 DAM [id number]) [facility] Fall Risk Assessment Tool Age less than60 years age (0 points) Fall History No falls within last 6 months (0 points) Elimination, Bowel, and Urine N/A (0 pts) Medications: Includes MANAGER INSURANCE/opiates, On 2 or more high fall risk antivulsants, ant-hypertensives, drugs (5 points) diuretics, hypnotics, Patient Care Equipment: Any equipment One present (1 point) that tethers patient (e.g. IV infusions, chest tube, indwelling Mobility N/A (0 points) Cognition N/A (0 points) Total Fall Risk Score 6 Fall Risk Category Moderate Risk (6-13) Fall Risk Interventions Low Risk Interventions Bed in lowest position Top side rails up x 2 Secure brake on bed Use properly fitting non-skid footwear Call light and frequently needed objects within reach Encourage patients/families to call for assistance when needed Fall education including risk assessment, injury risk and routine/ Inspect environment for safety and communication risk Supervise and assist with toileting/ADLs as needed Moderate Risk Interventions Institue fall-risk tooklit ( yellow flag, yellow non-skid socks and High Risk Interventions Remain with patient while toileting Document 04/21/16 22:47 KDM (Rec: 04/21/16 22:48 KDM [id number]) [facility] Fall Risk Assessment Tool Age less than60 years age (0 points) Fall History No falls within last 6 months (0 points) Elimination, Bowel, and Urine N/A (0 pts) Medications: Includes MANAGER INSURANCE/opiates, On 2 or more high fall risk antivulsants, ant-hypertensives, drugs (5 points) diuretics, hypnotics, Patient Care Equipment: Any equipment One present (1 point) that tethers patient (e.g. IV infusions, chest tube, indwelling Mobility N/A (0 points) Cognition N/A (0 points) Total Fall Risk Score 6 Fall Risk Category Moderate Risk (6-13) Fall Risk Interventions Low Risk Interventions Bed in lowest position Top side rails up x 2 Secure brake on bed Use properly fitting non-skid footwear Call light and frequently needed objects within reach Encourage patients/families to call for assistance when needed Fall education including risk assessment, injury risk and routine/ Inspect environment for safety and communication risk Supervise and assist with toileting/ADLs as needed Moderate Risk Interventions Institue fall-risk tooklit ( yellow flag, yellow non-skid socks and High Risk Interventions Remain with patient while toileting Document 04/22/16 11:13 KMR (Rec: 04/22/16 11:28 KMR [id number]) [facility] Fall Risk Assessment Tool Age less than60 years age (0 points) Fall History No falls within last 6 months (0 points) Elimination, Bowel, and Urine N/A (0 pts) Medications: Includes MANAGER INSURANCE/opiates, On 2 or more high fall risk antivulsants, ant-hypertensives, drugs (5 points) diuretics, hypnotics, Patient Care Equipment: Any equipment One present (1 point) that tethers patient (e.g. IV infusions, chest tube, indwelling Mobility N/A (0 points) Cognition N/A (0 points) Total Fall Risk Score 6 Fall Risk Category Moderate Risk (6-13) Fall Risk Interventions Low Risk Interventions Bed in lowest position Top side rails up x 2 Secure brake on bed Use properly fitting non-skid footwear Call light and frequently needed objects within reach Encourage patients/families to call for assistance when needed Fall education including risk assessment, injury risk and routine/ Inspect environment for safety and communication risk Supervise and assist with toileting/ADLs as needed Moderate Risk Interventions Institue fall-risk tooklit ( yellow flag, yellow non-skid socks and High Risk Interventions Remain with patient while toileting Flu Vaccine Screen Start: 04/19/16 21: 49 Freq: Status: Discharge Document 04/22/16 17:32 KMR (Rec: 04/22/16 17:38 KMR [id number]) Flu Vaccine Screen Patient meets criteria for vaccination No and consents to receive it Hygiene activity Start: 04/19/16 23: 13 Freq: .PRN Status: Discharge Document 04/20/16 11:41 JTD (Rec: 04/20/16 11:41 JTD [id number]) Hygiene Bath Type Refused Linen Change Refused Document 04/22/16 04:00 [id number] (Rec: 04/22/16 06:24 [id number]) Hygiene Linen Change Complete IV-Invasive Line Management Start: 04/19/16 23: 13 Freq: Q4H Status: Discharge Document 04/20/16 00:00 KDM (Rec: 04/20/16 00:00 KDM [id number]) IV/Invasive Line Assessment Right Forearm Date of Insertion 04/19/16 Time of Insertion 18:30 Reason for Line Insertion/Rationale for Replace Lost Fluids Insertion Provide Access for IV Medication(s) Gauge (gauge) 22 IV Catheter Type Peripheral IV Site Observation Patent Site Observation Intervention Inspected Line Dressing Applied Window Dressing Line Care Saline Flush P-Locked Labs drawn from Line* No Document 04/20/16 04:06 KDM (Rec: 04/20/16 04:06 KDM [id number]) IV/Invasive Line Assessment Right Forearm Date of Insertion 04/19/16 Time of Insertion 18:30 Reason for Line Insertion/Rationale for Replace Lost Fluids Insertion Provide Access for IV Medication(s) Gauge (gauge) 22 IV Catheter Type Peripheral IV Site Observation Patent Site Observation Intervention Inspected Line Dressing Applied Window Dressing Line Care Saline Flush P-Locked Labs drawn from Line* No Document 04/20/16 08:26 JMP (Rec: 04/20/16 08:30 JMP [id number]) IV/Invasive Line Assessment Right Forearm Date of Insertion 04/19/16 Time of Insertion 18:30 Reason for Line Insertion/Rationale for Replace Lost Fluids Insertion Provide Access for IV Medication(s) Gauge (gauge) 22 IV Catheter Type Peripheral IV Site Observation Patent Site Observation Intervention Inspected Line Dressing Applied Window Dressing Line Care P-Locked Document 04/20/16 12:09 JMP (Rec: 04/20/16 12:10 JMP [id number]) IV/Invasive Line Assessment Right Forearm Date of Insertion 04/19/16 Time of Insertion 18:30 Reason for Line Insertion/Rationale for Replace Lost Fluids Insertion Provide Access for IV Medication(s) Gauge (gauge) 22 IV Catheter Type Peripheral IV Site Observation Patent Site Observation Intervention Inspected Line Dressing Applied Window Dressing Line Care P-Locked Document 04/20/16 16:02 JMP (Rec: 04/20/16 16:05 JMP [id number]) IV/Invasive Line Assessment Right Forearm Date of Insertion 04/19/16 Time of Insertion 18:30 Reason for Line Insertion/Rationale for Replace Lost Fluids Insertion Provide Access for IV Medication(s) Gauge (gauge) 22 IV Catheter Type Peripheral IV Site Observation Patent Site Observation Intervention Inspected Line Dressing Applied Window Dressing Line Care P-Locked Document 04/20/16 21:45 KDM (Rec: 04/21/16 01:33 KDM [id number]) IV/Invasive Line Assessment Right Forearm Date of Insertion 04/19/16 Time of Insertion 18:30 Reason for Line Insertion/Rationale for Replace Lost Fluids Insertion Provide Access for IV Medication(s) Gauge (gauge) 22 IV Catheter Type Peripheral IV Site Observation Patent Site Observation Intervention Inspected Line Dressing Applied Window Dressing Line Care P-Locked Labs drawn from Line* No Document 04/21/16 03:05 KDM (Rec: 04/21/16 04:58 KDM [id number]) IV/Invasive Line Assessment Right Forearm Date of Insertion 04/19/16 Time of Insertion 18:30 Reason for Line Insertion/Rationale for Replace Lost Fluids Insertion Provide Access for IV Medication(s) Gauge (gauge) 20 IV Catheter Type Peripheral IV Site Observation Patent Site Observation Intervention Inspected Line Dressing Applied Window Dressing Line Care P-Locked Labs drawn from Line* No Document 04/21/16 12:00 DAM (Rec: 04/21/16 12:13 DAM [id number]) IV/Invasive Line Assessment Right Forearm Date of Insertion 04/19/16 Time of Insertion 18:30 Reason for Line Insertion/Rationale for Replace Lost Fluids Insertion Provide Access for IV Medication(s) Gauge (gauge) 20 IV Catheter Type Peripheral IV Site Observation Patent Site Observation Intervention Inspected Line Dressing Applied Window Dressing Line Care P-Locked Document 04/21/16 20:59 KDM (Rec: 04/21/16 21:06 KDM [id number]) IV/Invasive Line Assessment Right Forearm Date of Insertion 04/19/16 Time of Insertion 18:30 Reason for Line Insertion/Rationale for Replace Lost Fluids Insertion Provide Access for IV Medication(s) Gauge (gauge) 20 IV Catheter Type Peripheral IV Site Observation Patent Site Observation Intervention Inspected Line Dressing Applied Window Dressing Line Care Saline Flush P-Locked Labs drawn from Line* No Document 04/22/16 03:44 KDM (Rec: 04/22/16 03:44 KDM [id number]) IV/Invasive Line Assessment Right Forearm Date of Insertion 04/19/16 Time of Insertion 18:30 Reason for Line Insertion/Rationale for Replace Lost Fluids Insertion Provide Access for IV Medication(s) Gauge (gauge) 20 IV Catheter Type Peripheral IV Site Observation Patent Site Observation Intervention Inspected Line Dressing Applied Window Dressing Line Care Saline Flush P-Locked Labs drawn from Line* No Document 04/22/16 05:31 KDM (Rec: 04/22/16 05:31 KDM [id number]) IV/Invasive Line Assessment Right Forearm Date of Insertion 04/19/16 Time of Insertion 18:30 Reason for Line Insertion/Rationale for Replace Lost Fluids Insertion Provide Access for IV Medication(s) Gauge (gauge) 20 IV Catheter Type Peripheral IV Site Observation Patent Site Observation Intervention Inspected Line Dressing Applied Window Dressing Line Care Saline Flush P-Locked Labs drawn from Line* No Document 04/22/16 11:13 KMR (Rec: 04/22/16 11:28 KMR [id number]) IV/Invasive Line Assessment Right Forearm Date of Insertion 04/19/16 Time of Insertion 18:30 Reason for Line Insertion/Rationale for Replace Lost Fluids Insertion Provide Access for IV Medication(s) Gauge (gauge) 20 IV Catheter Type Peripheral IV Site Observation Patent Site Observation Intervention Inspected Line Dressing Applied Window Dressing Line Care Saline Flush P-Locked Labs drawn from Line* No Document 04/22/16 15:02 KMR (Rec: 04/22/16 15:03 KMR [id number]) IV/Invasive Line Assessment Right Forearm Date of Insertion 04/19/16 Time of Insertion 18:30 Reason for Line Insertion/Rationale for Replace Lost Fluids Insertion Provide Access for IV Medication(s) Gauge (gauge) 20 IV Catheter Type Peripheral IV Site Observation Patent Site Observation Intervention Inspected Line Dressing Applied Window Dressing Line Care Saline Flush P-Locked Date IV Line Discontinued 04/22/16 Time IV Line Discontinued 15:03 IV Line Discontinue Reason discharged IV Line Removal Patient Tolerance Tolerated Well Sterile Dressing Applied IV removed/ tip intact Bleeding Controlled Education Completed Expresses Understanding Labs drawn from Line* No Initial Patient Assessment Start: 04/19/16 23: 13 Freq: .ONCE Status: Discharge Document 04/19/16 23:14 KDM (Rec: 04/19/16 23:22 KDM [id number]) General Questions Date of Arrival on Unit 04/19/16 Time of Arrival on Unit 23:14 Admitted From Emergency Dept Chief Complaint bilateral leg swelling Onset of Chief Complaint 04/10/16 History Provided By Patient Orientation To Call Light Bed Phone TV Bathroom Smoking Policy Visiting Hours Procedures ID Bracelet On Emergency Contact Name quinn ochoa Relationship to Patient boyfriend Emergency Contact Phone Number [phone] Bands applied ID band Allergy band Patient Health Portal Patient was provided information on Yes accessing patient portal Patient Requests Portal Enrollment No Reason No Portal Enrollment Patient Declines Malnutrition Screening Tool (MST) Have You Recently Lost Weight Without No Trying Advance Directives Advance Directives No Advance Directives Information Provided Yes Patient Rights Copy of Rights Given and Verbalizes Yes Understanding Tobacco Free [place]: Copy of AHS Yes Statement Given and Patient Verbalizes Understanding Communication Ability Primary Language Turkmen Preferred Language Turkmen Ct Scan Technologist Required No Ability to Follow Directions Good Able to Read Yes Able to Write Yes Communication Tools None Learning Preferences Demonstration Discussion Hearing Ability Normal Visual Assistive Devices Glasses Pain Assessment Do You Have Any Ongoing (Chronic) Pain Yes: lower back pain Problems What treatment or medications are you naproxen, baclofen receiving for pain management Educated on Pain Scale Yes Past Medical History Medical history arthritis COPD GERD migraine osteoporosis renal disease other Female Surgical History other Psychiatric history anxiety bipolar depression other Smoking Status Heavy tobacco smoker Smokeless Tobacco Status No Alcohol use occasionally Drug use marijuana other Current living situation Home - Independent Activity level Independent ambulation Mostly sedentary Recent Out of Country Travel Within the No Last 8 Weeks Exposure or Possible Exposure to Illness No During Travel Spiritual Needs Spiritual Referral None Psychosocial Over Age 75 and Lives Alone or Over Age No 79 Developmentally Disabled or History of Yes Mental Health Problems Diagnosis with Half-Way Need or No Terminal Implications Responsible for Care of Others No Financial Concerns No Suspected Abuse or Neglect No Suicidal or Homicidal Ideation No Social Service Consult Needed No Functional Assessment Employment Status Disabled Community Services Used Prior to Oxygen Therapy Admission Eating (Feeding) Ability Independent Bathing Ability Independent Upper Body Dressing Ability Independent Lower Body Dressing Ability Minimum Assistance Ambulation Ability Standby Assistance Toileting Ability Minimum Assistance Bladder Continent Bowel Continent Date of Last Known Bowel Movement 04/16/16 Intake and Output, Strict Start: 04/19/16 23: 13 Freq: Q8H Status: Discharge Document 04/20/16 07:00 JTD (Rec: 04/20/16 08:09 JTD [id number]) Intake and Output Intake, Oral Amount 0 Output, Urine Amount 0 Document 04/20/16 11:39 JTD (Rec: 04/20/16 11:40 JTD [id number]) Intake and Output Intake, Oral Amount 0 Output, Urine Amount 0 Document 04/20/16 13:22 JTD (Rec: 04/20/16 13:22 JTD [id number]) Intake and Output Intake, Oral Amount 120 Meal Lunch Percent of Meal Consumed 100% Oral Supplements* None Document 04/22/16 06:51 ARB (Rec: 04/22/16 06:51 ARB [id number]) Intake and Output Intake, Oral Amount 240 Percent of Meal Consumed 0% Oral Supplements* None Number of Voids 1 Urine Color Bright Yellow Dark Yellow Document 04/22/16 10:42 ARB (Rec: 04/22/16 10:42 ARB [id number]) Intake and Output Intake, Oral Amount 360 Meal Breakfast Percent of Meal Consumed 100% Oral Supplements* None Measure intake and output Start: 04/19/16 22: 23 Freq: qshift Status: Discharge Document 04/19/16 23:15 TRM (Rec: 04/19/16 23:16 TRM [id number]) Intake and Output Intake, Oral Amount 0 Output, Urine Amount 0 Document 04/20/16 09:00 JTD (Rec: 04/20/16 09:45 JTD [id number]) Intake and Output Intake, Oral Amount 240 Meal Breakfast Percent of Meal Consumed 100% Oral Supplements* None Document 04/20/16 21:00 [id number] (Rec: 04/21/16 10:36 [id number]) Intake and Output Intake, Oral Amount 480 Meal Breakfast Percent of Meal Consumed 100% Oral Supplements* None Document 04/21/16 22:00 TRM (Rec: 04/21/16 22:30 TRM [id number]) Intake and Output Intake, Oral Amount 200 Number of Voids 1 Measure intake and output Start: 04/19/16 22: 25 Freq: QSHIFT Status: Discharge Document 04/20/16 09:55 JMP (Rec: 04/20/16 09:56 JMP [id number]) Intake and Output Output, Urine Amount 1,000 Document 04/22/16 05:53 TRM (Rec: 04/22/16 05:54 TRM [id number]) Intake and Output Intake, Oral Amount 120 Number of Voids 2 Document 04/22/16 13:41 BMB (Rec: 04/22/16 13:41 BMB [id number]) Intake and Output Intake, Oral Amount 360 Meal Lunch Percent of Meal Consumed 100% Oral Supplements* None Measure weight Start: 04/19/16 22: 26 Freq: DAILY Status: Discharge Document 04/19/16 23:15 TRM (Rec: 04/19/16 23:16 TRM [id number]) Height and Weight Weight 119.3 kg Weight Measurement Method Built in [facility] 04/19/16 23:16 Nurse Note by Sandee Boothe patient vitals on admission to unit. primary RN in room at this time Initialized on 04/19/16 23:16 - END OF NOTE Document 04/21/16 04:00 DLS (Rec: 04/21/16 05:55 DLS [id number]) Height and Weight Weight 117 kg Weight Measurement Method Built in [employer] Document 04/22/16 05:53 TRM (Rec: 04/22/16 05:54 TRM [id number]) Height and Weight Weight 177.6 kg Weight Measurement Method Built in [employer] Rec Tech Start: 04/19/16 20: 56 Freq: Status: Discharge Document 04/19/16 20:56 EJD (Rec: 04/19/16 20:57 EJD [id number]) Pharmacy Med Rec Tech Home Medicatons Reconciled? Yes Was this to catch up from previous day No Does patient take 10 or more medications Yes ? Does patient request medication No education Do home meds include Coumadin, Xarelto, No Pradaxa, Eliquis Added Patient Preferred Pharmacy Yes Verified Allergies Yes Would Patient Like to use [facility] No Patient Pharmacy Oxygen administration Start: 04/19/16 23: 13 Freq: Q12H Status: Discharge Document 04/22/16 11:13 KMR (Rec: 04/22/16 11:28 KMR [id number]) Oxygen Heart rate 76 O2 Sat by Pulse Oximetry (95-100) 93 L Oxygen Delivery Method Nasal Cannula Oxygen Flow Rate (LPM) 3 Comment patient has home oxygen via Patient Belongings Start: 04/19/16 23: 13 Freq: .ONCE Status: Complete Document 04/19/16 23:14 KDM (Rec: 04/19/16 23:22 KDM [id number]) Patient Belongings Belongings With Patient on Admission Yes In Patient Closet Patient Belongings Pants Purse Shirt Belongings Comment oxygen tank personal one from home brought in Patient Rounding Start: 04/19/16 15: 09 Freq: Q30M Status: Discharge Document 04/19/16 19:09 TAB (Rec: 04/19/16 19:23 TAB [id number]) Patient Rounding Safety Call Light Within Reach Bed Position Low Side Rails Up X1 Are the Floors Free From Trip Hazards? Yes Is the Room Free From Clutter? Yes Rounding Completed? Yes Patient Rounding Updated patient/family on Plan of Care Checked for Patient Positioning Patient Awake Patient Rounding Start: 04/19/16 23: 13 Freq: Q1H Status: Discharge Document 04/19/16 23:15 TRM (Rec: 04/19/16 23:16 TRM [id number]) Hourly Rounding Hourly Rounding Checked for Patient Positioning Patient Helped to Bathroom or Assisted with Bedpan or Urinal Patient Personal Items Placed Within Reach Checked Patient Pain Level Hourly Rounding Completed Yes Patient Awake Is family present? Yes Safety Call Light Within Reach Bed Position Low Phone Within Reach Bed Brake On Side Rails Up X2 Are the Floors Free From Trip Hazards? Yes Is the Room Free From Clutter? Yes Turn and Postion Bedrest No Turn Q 2HR No Document 04/20/16 00:15 KDM (Rec: 04/20/16 00:19 KDM [id number]) Hourly Rounding Hourly Rounding Checked for Patient Positioning Patient Personal Items Placed Within Reach Checked Patient Pain Level Hourly Rounding Completed Yes Patient Awake Is family present? No Comment roxicodone given for pain Equipment in Use Specialty Bed Safety Call Light Within Reach Bed Position Low Fall Precautions Phone Within Reach Bed Brake On Side Rails Up X2 Are the Floors Free From Trip Hazards? Yes Is the Room Free From Clutter? Yes Turn and Postion Bedrest No Turn Q 2HR No Patient Position Back Positioning Aides Pillows Document 04/20/16 04:00 DLS (Rec: 04/20/16 05:52 DLS [id number]) Hourly Rounding Hourly Rounding Checked for Patient Positioning Hourly Rounding Completed Yes Patient Awake Is family present? No Safety Call Light Within Reach Bed Position Low Fall Precautions Phone Within Reach Bed Brake On Side Rails Up X2 Are the Floors Free From Trip Hazards? Yes Is the Room Free From Clutter? Yes Document 04/20/16 04:06 KDM (Rec: 04/20/16 04:07 KDM [id number]) Hourly Rounding Hourly Rounding Checked for Patient Positioning Patient Personal Items Placed Within Reach Checked Patient Pain Level Hourly Rounding Completed Yes Patient Awake Is family present? No Comment roxicodone given for pain in neck Equipment in Use Specialty Bed Safety Call Light Within Reach Bed Position Low Fall Precautions Phone Within Reach Bed Brake On Side Rails Up X2 Are the Floors Free From Trip Hazards? Yes Is the Room Free From Clutter? Yes Precautions Contact Precautions Turn and Postion Bedrest No Turn Q 2HR No Patient Position Left Side Positioning Aides Pillows Document 04/20/16 07:00 JTD (Rec: 04/20/16 08:09 JTD [id number]) Hourly Rounding Hourly Rounding Checked for Patient Positioning Patient Personal Items Placed Within Reach Hourly Rounding Completed Yes Patient Sleeping Is family present? No Safety Call Light Within Reach Bed Position Low Bed Brake On Side Rails Up X2 Are the Floors Free From Trip Hazards? Yes Is the Room Free From Clutter? Yes Turn and Postion Bedrest No Turn Q 2HR No Patient Position Back Document 04/20/16 08:26 JMP (Rec: 04/20/16 08:30 JMP [id number]) Hourly Rounding Hourly Rounding Checked for Patient Positioning Patient Personal Items Placed Within Reach Hourly Rounding Completed Yes Patient Resting With Eyes Closed Is family present? No Safety Call Light Within Reach Bed Position Low Fall Precautions Phone Within Reach Bed Brake On Side Rails Up X2 Are the Floors Free From Trip Hazards? Yes Is the Room Free From Clutter? Yes Turn and Postion Patient Position Back Document 04/20/16 09:55 JMP (Rec: 04/20/16 09:55 JMP [id number]) Hourly Rounding Hourly Rounding Checked for Patient Positioning Patient Personal Items Placed Within Reach Hourly Rounding Completed Yes Patient Awake Is family present? No Safety Call Light Within Reach Bed Position Low Fall Precautions Phone Within Reach Bed Brake On Side Rails Up X2 Are the Floors Free From Trip Hazards? Yes Is the Room Free From Clutter? Yes Turn and Postion Patient Position Sitting up in Bed Document 04/20/16 12:09 JMP (Rec: 04/20/16 12:10 JMP [id number]) Hourly Rounding Hourly Rounding Checked for Patient Positioning Patient Personal Items Placed Within Reach Hourly Rounding Completed Yes Patient Awake Is family present? No Safety Call Light Within Reach Bed Position Low Fall Precautions Phone Within Reach Bed Brake On Side Rails Up X2 Are the Floors Free From Trip Hazards? Yes Is the Room Free From Clutter? Yes Turn and Postion Patient Position Back Document 04/20/16 13:30 JMP (Rec: 04/20/16 13:30 JMP [id number]) Hourly Rounding Hourly Rounding Checked for Patient Positioning Patient Personal Items Placed Within Reach Checked Patient Pain Level Hourly Rounding Completed Yes Patient Awake Is family present? Yes Safety Call Light Within Reach Bed Position Low Fall Precautions Phone Within Reach Bed Brake On Side Rails Up X2 Are the Floors Free From Trip Hazards? Yes Is the Room Free From Clutter? Yes Turn and Postion Patient Position Back Document 04/20/16 16:02 [facility] (Rec: 04/20/16 16:05 [facility] [id number]) Hourly Rounding Hourly Rounding Checked for Patient Positioning Patient Personal Items Placed Within Reach Checked Patient Pain Level Hourly Rounding Completed Yes Patient Awake Is family present? Yes Safety Call Light Within Reach Bed Position Low Fall Precautions Phone Within Reach Bed Brake On Side Rails Up X2 Are the Floors Free From Trip Hazards? Yes Is the Room Free From Clutter? Yes Turn and Postion Patient Position Back Document 04/20/16 18:03 [facility] (Rec: 04/20/16 18:03 [facility] [id number]) Hourly Rounding Hourly Rounding Checked for Patient Positioning Patient Personal Items Placed Within Reach Checked Patient Pain Level Hourly Rounding Completed Yes Patient Awake Is family present? Yes Safety Call Light Within Reach Bed Position Low Fall Precautions Phone Within Reach Bed Brake On Side Rails Up X2 Are the Floors Free From Trip Hazards? Yes Is the Room Free From Clutter? Yes Turn and Postion Patient Position Sitting up in Bed Document 04/20/16 19:18 KDM (Rec: 04/20/16 19:24 KDM [id number]) Hourly Rounding Hourly Rounding Checked for Patient Positioning Patient Personal Items Placed Within Reach Checked Patient Pain Level Hourly Rounding Completed Yes Patient Awake Is family present? Yes Equipment in Use Specialty Bed Safety Call Light Within Reach Bed Position Low Fall Precautions Phone Within Reach Side Rails Up X2 Are the Floors Free From Trip Hazards? Yes Is the Room Free From Clutter? Yes Turn and Postion Bedrest No Turn Q 2HR No Patient Position Back Positioning Aides Pillows Document 04/20/16 21:00 DLS (Rec: 04/20/16 22:59 DLS [id number]) Hourly Rounding Hourly Rounding Checked for Patient Positioning Hourly Rounding Completed Yes Patient Awake Is family present? Yes Safety Call Light Within Reach Bed Position Low Phone Within Reach Bed Brake On Side Rails Up X2 Are the Floors Free From Trip Hazards? Yes Is the Room Free From Clutter? Yes Document 04/20/16 21:45 KDM (Rec: 04/21/16 01:33 KDM [id number]) Hourly Rounding Hourly Rounding Checked for Patient Positioning Patient Personal Items Placed Within Reach Hourly Rounding Completed Yes Patient Awake Is family present? No Equipment in Use Specialty Bed Safety Call Light Within Reach Bed Position Low Fall Precautions Phone Within Reach Bed Brake On Side Rails Up X2 Are the Floors Free From Trip Hazards? Yes Is the Room Free From Clutter? Yes Turn and Postion Bedrest No Turn Q 2HR No Patient Position Back Document 04/21/16 04:00 DLS (Rec: 04/21/16 05:55 DLS [id number]) Hourly Rounding Hourly Rounding Checked for Patient Positioning Hourly Rounding Completed Yes Patient Awake Is family present? No Safety Call Light Within Reach Bed Position Low Fall Precautions Phone Within Reach Bed Brake On Side Rails Up X2 Are the Floors Free From Trip Hazards? Yes Is the Room Free From Clutter? Yes Document 04/21/16 06:38 JAB (Rec: 04/21/16 06:40 JAB [id number]) Hourly Rounding Hourly Rounding Checked for Patient Positioning Patient Personal Items Placed Within Reach Hourly Rounding Completed Yes Patient Awake Is family present? No Safety Call Light Within Reach Bed Position Low Phone Within Reach Bed Brake On Side Rails Up X2 Are the Floors Free From Trip Hazards? Yes Is the Room Free From Clutter? Yes Turn and Postion Bedrest No Turn Q 2HR No Document 04/21/16 09:00 DAM (Rec: 04/21/16 09:19 DAM [id number]) Hourly Rounding Hourly Rounding Checked for Patient Positioning Patient Personal Items Placed Within Reach Checked Patient Pain Level Hourly Rounding Completed Yes Patient Sleeping Is family present? No Equipment in Use Specialty Bed Safety Call Light Within Reach Bed Position Low Phone Within Reach Bed Brake On Side Rails Up X2 Are the Floors Free From Trip Hazards? Yes Is the Room Free From Clutter? Yes Turn and Postion Bedrest No Turn Q 2HR No Document 04/21/16 11:10 DAM (Rec: 04/21/16 11:10 DAM [id number]) Hourly Rounding Hourly Rounding Checked for Patient Positioning Patient Personal Items Placed Within Reach Checked Patient Pain Level Hourly Rounding Completed Yes Patient Sleeping Is family present? No Equipment in Use Specialty Bed Safety Call Light Within Reach Bed Position Low Phone Within Reach Bed Brake On Side Rails Up X2 Are the Floors Free From Trip Hazards? Yes Is the Room Free From Clutter? Yes Precautions Contact Precautions Turn and Postion Bedrest No Turn Q 2HR No Document 04/21/16 11:57 JAB (Rec: 04/21/16 11:57 JAB [id number]) Hourly Rounding Hourly Rounding Checked for Patient Positioning Patient Personal Items Placed Within Reach Hourly Rounding Completed Yes Patient Awake Is family present? No Safety Call Light Within Reach Bed Position Low Phone Within Reach Bed Brake On Side Rails Up X2 Are the Floors Free From Trip Hazards? Yes Is the Room Free From Clutter? Yes Turn and Postion Bedrest No Turn Q 2HR No Document 04/21/16 12:57 DAM (Rec: 04/21/16 12:58 DAM [id number]) Hourly Rounding Hourly Rounding Checked for Patient Positioning Patient Personal Items Placed Within Reach Hourly Rounding Completed Yes Patient Awake Is family present? No Equipment in Use Specialty Bed Safety Call Light Within Reach Bed Position Low Phone Within Reach Bed Brake On Side Rails Up X2 Are the Floors Free From Trip Hazards? Yes Is the Room Free From Clutter? Yes Precautions Contact Precautions Turn and Postion Bedrest No Turn Q 2HR No Document 04/21/16 15:39 JAB (Rec: 04/21/16 15:41 JAB [id number]) Hourly Rounding Hourly Rounding Checked for Patient Positioning Patient Personal Items Placed Within Reach Hourly Rounding Completed Yes Patient Awake Is family present? No Safety Call Light Within Reach Bed Position Low Phone Within Reach Bed Brake On Side Rails Up X2 Are the Floors Free From Trip Hazards? Yes Is the Room Free From Clutter? Yes Turn and Postion Bedrest No Turn Q 2HR No Document 04/21/16 16:00 DAM (Rec: 04/21/16 16:18 DAM [id number]) Hourly Rounding Hourly Rounding Checked for Patient Positioning Patient Personal Items Placed Within Reach Checked Patient Pain Level Hourly Rounding Completed Yes Patient Awake Is family present? No Safety Call Light Within Reach Bed Position Low Phone Within Reach Bed Brake On Side Rails Up X2 Are the Floors Free From Trip Hazards? Yes Is the Room Free From Clutter? Yes Turn and Postion Bedrest No Turn Q 2HR No Patient Position Back Document 04/21/16 17:18 DAM (Rec: 04/21/16 17:18 DAM [id number]) Hourly Rounding Hourly Rounding Checked for Patient Positioning Patient Personal Items Placed Within Reach Checked Patient Pain Level Hourly Rounding Completed Yes Patient Awake Is family present? No Equipment in Use Specialty Bed Safety Call Light Within Reach Bed Position Low Phone Within Reach Bed Brake On Side Rails Up X2 Are the Floors Free From Trip Hazards? Yes Is the Room Free From Clutter? Yes Precautions Contact Precautions Turn and Postion Bedrest No Turn Q 2HR No Patient Position Back Document 04/21/16 18:00 DAM (Rec: 04/21/16 18:22 DAM [id number]) Hourly Rounding Hourly Rounding Checked for Patient Positioning Patient Personal Items Placed Within Reach Checked Patient Pain Level Hourly Rounding Completed Yes Patient Awake Is family present? No Equipment in Use Specialty Bed Safety Call Light Within Reach Bed Position Low Phone Within Reach Bed Brake On Side Rails Up X2 Are the Floors Free From Trip Hazards? Yes Is the Room Free From Clutter? Yes Turn and Postion Bedrest No Turn Q 2HR No Patient Position Back Document 04/21/16 20:59 KDM (Rec: 04/21/16 21:06 KDM [id number]) Hourly Rounding Hourly Rounding Checked for Patient Positioning Patient Personal Items Placed Within Reach Checked Patient Pain Level Hourly Rounding Completed Yes Patient Awake Is family present? No Comment percocet given for pain Equipment in Use Specialty Bed Safety Call Light Within Reach Bed Position Low Fall Precautions Phone Within Reach Bed Brake On Side Rails Up X2 Are the Floors Free From Trip Hazards? Yes Is the Room Free From Clutter? Yes Turn and Postion Bedrest No Turn Q 2HR No Patient Position Back Positioning Aides Pillows Document 04/21/16 22:00 TRM (Rec: 04/21/16 22:30 TRM [id number]) Hourly Rounding Hourly Rounding Checked for Patient Positioning Patient Helped to Bathroom or Assisted with Bedpan or Urinal Patient Personal Items Placed Within Reach Checked Patient Pain Level Hourly Rounding Completed Yes Patient Awake Is family present? No Safety Call Light Within Reach Bed Position Low Phone Within Reach Bed Brake On Side Rails Up X2 Are the Floors Free From Trip Hazards? Yes Is the Room Free From Clutter? Yes Turn and Postion Bedrest No Turn Q 2HR No 04/21/16 22:30 Nurse Note by Sandee Boothe patient denies needs at this time Initialized on 04/21/16 22:30 - END OF NOTE Document 04/22/16 05:31 KDM (Rec: 04/22/16 05:32 KDM [id number]) Hourly Rounding Hourly Rounding Checked for Patient Positioning Patient Personal Items Placed Within Reach Hourly Rounding Completed Yes Patient Resting With Eyes Closed Is family present? No Equipment in Use Specialty Bed Safety Call Light Within Reach Bed Position Low Fall Precautions Phone Within Reach Bed Brake On Side Rails Up X2 Are the Floors Free From Trip Hazards? Yes Is the Room Free From Clutter? Yes Turn and Postion Bedrest No Turn Q 2HR No Patient Position Back Positioning Aides Pillows Document 04/22/16 06:00 ARB (Rec: 04/22/16 06:53 ARB [id number]) Hourly Rounding Hourly Rounding Checked for Patient Positioning Patient Personal Items Placed Within Reach Hourly Rounding Completed Yes Patient Sleeping Is family present? No Safety Call Light Within Reach Bed Position Low Phone Within Reach Bed Brake On Side Rails Up X2 Are the Floors Free From Trip Hazards? Yes Is the Room Free From Clutter? Yes Turn and Postion Bedrest No Turn Q 2HR No Patient Position Back Document 04/22/16 08:00 ARB (Rec: 04/22/16 11:08 ARB [id number]) Hourly Rounding Hourly Rounding Checked for Patient Positioning Patient Personal Items Placed Within Reach Hourly Rounding Completed Yes Patient Awake Is family present? No Safety Call Light Within Reach Bed Position Low Phone Within Reach Bed Brake On Side Rails Up X2 Are the Floors Free From Trip Hazards? Yes Is the Room Free From Clutter? Yes Turn and Postion Bedrest No Turn Q 2HR No Patient Position Sitting up in Bed Document 04/22/16 11:13 KMR (Rec: 04/22/16 11:28 KMR [id number]) Hourly Rounding Hourly Rounding Checked for Patient Positioning Patient Helped to Bathroom or Assisted with Bedpan or Urinal Patient Personal Items Placed Within Reach Checked Patient Pain Level Hourly Rounding Completed Yes Patient Awake Is family present? No Equipment in Use Specialty Bed Safety Call Light Within Reach Bed Position Low Phone Within Reach Bed Brake On Side Rails Up X2 Are the Floors Free From Trip Hazards? Yes Is the Room Free From Clutter? Yes Precautions Contact Precautions Turn and Postion Bedrest No Turn Q 2HR No Patient Position Chair Document 04/22/16 15:02 KMR (Rec: 04/22/16 15:03 KMR [id number]) Hourly Rounding Hourly Rounding Checked for Patient Positioning Patient Helped to Bathroom or Assisted with Bedpan or Urinal Patient Personal Items Placed Within Reach Checked Patient Pain Level Hourly Rounding Completed Yes Patient Awake Is family present? No Equipment in Use Specialty Bed Safety Call Light Within Reach Bed Position Low Phone Within Reach Bed Brake On Side Rails Up X2 Are the Floors Free From Trip Hazards? Yes Is the Room Free From Clutter? Yes Precautions Contact Precautions Turn and Postion Bedrest No Turn Q 2HR No Patient Position Chair Peripheral venous cannula mgmt/flush Start: 04/19/16 22: 23 Freq: CONT Status: Discharge Document 04/21/16 16:11 DAM (Rec: 04/21/16 16:18 DAM [id number]) RT PRN/Refused/Not Available Start: 04/22/16 16: 06 Freq: Status: Discharge Document 04/22/16 16:05 JLC (Rec: 04/22/16 16:06 JLC [id number]) PRN/Refused Refused Yes RT Respiratory Medication Delivery Start: 04/19/16 19: 20 Freq: Status: Discharge Document 04/19/16 19:20 TRM(2) (Rec: 04/19/16 19:23 TRM(2) [id number]) Respiratory Therapy Pre Assessment SPO2 (95-100) 95 Heart rate 90 Respiratory Rate 17 BP (mm Hg) 120/63 Oxygen Delivery Method Nasal Cannula O2 Flow Rate 4 FIO2 (%) 36 Throughout Breath Sounds Diminished Treatment Modality Nebulizer Therapy Respiratory Medications Duoneb Medication Delivery Device Mask Treatment Tolerance Excellent Cont. Aerosol 1st Hour* Yes Post RT Medication Delivery Post Heart rate 84 Post Respiratory Rate (breaths/min) 16 Throughout Post Breath Sounds Diminished Treatment Outcome No Change Comment no distress or comps noted RT Cough/Suction Cough Description None Document 04/19/16 23:55 PJE (Rec: 04/20/16 00:01 PJE [id number]) Respiratory Therapy Pre Assessment SPO2 (95-100) 93 L Heart rate 95 Respiratory Rate 22 Oxygen Delivery Method Nasal Cannula O2 Flow Rate 4 Throughout Breath Sounds Clear Expiratory Wheezing Treatment Modality Nebulizer Therapy Respiratory Medications Duoneb Medication Delivery Device Mask Treatment Tolerance Good Initial Aerosol/MDI/DPI* Yes Post RT Medication Delivery Post Heart rate 93 Post Respiratory Rate (breaths/min) 20 Throughout Post Breath Sounds Clear Diminished Treatment Outcome Relief of Symptoms Comment no adverse reaction Document 04/20/16 05:34 PJE (Rec: 04/20/16 06:01 PJE [id number]) Respiratory Therapy Pre Assessment SPO2 (95-100) 92 L Heart rate 89 Respiratory Rate 22 Oxygen Delivery Method Nasal Cannula O2 Flow Rate 5 Throughout Breath Sounds Expiratory Rhonchi Expiratory Wheezing Treatment Modality Nebulizer Therapy Respiratory Medications Duoneb Medication Delivery Device Mask Treatment Tolerance Good Sub. Aerosol/MDI/DPI Treatment* Yes Post RT Medication Delivery Post Heart rate 89 Post Respiratory Rate (breaths/min) 20 Throughout Post Breath Sounds Expiratory Rhonchi Treatment Outcome Relief of Symptoms Comment no adverse reaction Document 04/20/16 10:36 OTONIEL (Rec: 04/20/16 14:37 OTONIEL [id number]) Respiratory Therapy Pre Assessment SPO2 (95-100) 92 L Heart rate 89 Respiratory Rate 16 Oxygen Delivery Method Nasal Cannula O2 Flow Rate 4 FIO2 (%) 36 Throughout Breath Sounds Expiratory Rhonchi Expiratory Wheezing Treatment Modality Nebulizer Therapy Respiratory Medications Duoneb Medication Delivery Device Mask Treatment Tolerance Good Sub. Aerosol/MDI/DPI Treatment* Yes Post RT Medication Delivery Post Heart rate 94 Post Respiratory Rate (breaths/min) 18 Throughout Post Breath Sounds Expiratory Rhonchi Expiratory Wheezing Treatment Outcome No Change Document 04/20/16 15:56 OTONIEL (Rec: 04/20/16 18:19 OTONIEL [id number]) Respiratory Therapy Pre Assessment SPO2 (95-100) 93 L Heart rate 95 Respiratory Rate 18 Oxygen Delivery Method Nasal Cannula O2 Flow Rate 4 FIO2 (%) 36 Throughout Breath Sounds Expiratory Rhonchi Expiratory Wheezing Treatment Modality Nebulizer Therapy Respiratory Medications Duoneb Medication Delivery Device Mask Treatment Tolerance Good Sub. Aerosol/MDI/DPI Treatment* Yes Post RT Medication Delivery Post Heart rate 99 Post Respiratory Rate (breaths/min) 18 Throughout Post Breath Sounds Expiratory Rhonchi Expiratory Wheezing Treatment Outcome No Change Document 04/21/16 00:03 JNL (Rec: 04/21/16 00:03 JNL [id number]) Respiratory Therapy Pre Assessment SPO2 (95-100) 90 L Heart rate 94 Respiratory Rate 18 Oxygen Delivery Method Nasal Cannula O2 Flow Rate 5 FIO2 (%) 40 Throughout Breath Sounds Inspiratory Rhonchi Expiratory Rhonchi Inspiratory Wheezing Expiratory Wheezing Treatment Modality Nebulizer Therapy Respiratory Medications Duoneb Medication Delivery Device Mask Treatment Tolerance Good Sub. Aerosol/MDI/DPI Treatment* Yes Post RT Medication Delivery Post Heart rate 102 Post Respiratory Rate (breaths/min) 18 Throughout Post Breath Sounds Inspiratory Rhonchi Expiratory Rhonchi Inspiratory Wheezing Expiratory Wheezing Treatment Outcome No Change Comment no adverse reaction RT Cough/Suction Cough Description Productive Moist Sputum Amount Scant Document 04/21/16 03:44 JNL (Rec: 04/21/16 03:44 JNL [place] [id number]) Respiratory Therapy Pre Assessment SPO2 (95-100) 90 L Heart rate 79 Respiratory Rate 18 Oxygen Delivery Method Nasal Cannula O2 Flow Rate 5 FIO2 (%) 40 Throughout Breath Sounds Inspiratory Rhonchi Expiratory Rhonchi Inspiratory Wheezing Expiratory Wheezing Treatment Modality Nebulizer Therapy Respiratory Medications Duoneb Medication Delivery Device Mask Treatment Tolerance Good Sub. Aerosol/MDI/DPI Treatment* Yes Post RT Medication Delivery Post Heart rate 79 Post Respiratory Rate (breaths/min) 18 Throughout Post Breath Sounds Inspiratory Wheezing Expiratory Wheezing Treatment Outcome No Change RT Cough/Suction Cough Description Non-Productive Moist Sputum Amount None Document 04/21/16 10:51 TRG (Rec: 04/21/16 13:49 TRG [id number]) Respiratory Therapy Pre Assessment SPO2 (95-100) 95 Heart rate 89 Respiratory Rate 18 Oxygen Delivery Method Nasal Cannula O2 Flow Rate 5 Throughout Breath Sounds Inspiratory Wheezing Expiratory Wheezing Treatment Modality Nebulizer Therapy Respiratory Medications Duoneb Medication Delivery Device Mask Treatment Tolerance Good Sub. Aerosol/MDI/DPI Treatment* Yes Post RT Medication Delivery Post Heart rate 90 Post Respiratory Rate (breaths/min) 18 Throughout Post Breath Sounds Inspiratory Wheezing Expiratory Wheezing Treatment Outcome No Change Comment no comp RT Cough/Suction Cough Description Non-Productive Moist Sputum Amount None Document 04/21/16 16:28 JPM (Rec: 04/21/16 16:29 JPM [place] [id number]) Respiratory Therapy Pre Assessment SPO2 (95-100) 90 L Heart rate 71 Respiratory Rate 16 Oxygen Delivery Method Nasal Cannula O2 Flow Rate 4 FIO2 (%) 40 Throughout Breath Sounds Inspiratory Wheezing Expiratory Wheezing Treatment Modality Nebulizer Therapy Respiratory Medications Duoneb Medication Delivery Device Mask Treatment Tolerance Good Sub. Aerosol/MDI/DPI Treatment* Yes Post RT Medication Delivery Post Heart rate 72 Post Respiratory Rate (breaths/min) 16 Throughout Post Breath Sounds Inspiratory Wheezing Expiratory Wheezing Treatment Outcome No Change Comment no complications noted Document 04/21/16 23:17 SMS (Rec: 04/21/16 23:50 [id number]) Respiratory Therapy Pre Assessment SPO2 (95-100) 93 L Heart rate 81 Respiratory Rate 20 Oxygen Delivery Method Nasal Cannula O2 Flow Rate 5 Throughout Breath Sounds Clear Diminished Treatment Modality Nebulizer Therapy Respiratory Medications Duoneb Medication Delivery Device Mask Treatment Tolerance Good Sub. Aerosol/MDI/DPI Treatment* Yes Post RT Medication Delivery Post Heart rate 75 Post Respiratory Rate (breaths/min) 20 Throughout Post Breath Sounds Clear Diminished Treatment Outcome No Change Comment No complications noted. Document 04/22/16 04:20 SMS (Rec: 04/22/16 05:08 [email or web address]) Respiratory Therapy Pre Assessment SPO2 (95-100) 92 L Heart rate 88 Respiratory Rate 20 Oxygen Delivery Method Nasal Cannula O2 Flow Rate 5 Throughout Breath Sounds Clear Treatment Modality Nebulizer Therapy Respiratory Medications Duoneb Medication Delivery Device Mask Treatment Tolerance Good Sub. Aerosol/MDI/DPI Treatment* Yes Post RT Medication Delivery Post Heart rate 88 Post Respiratory Rate (breaths/min) 20 Throughout Post Breath Sounds Clear Treatment Outcome No Change Comment No complications noted. Document 04/22/16 11:51 [facility] (Rec: 04/22/16 11:53 [facility] [id number]) Respiratory Therapy Pre Assessment SPO2 (95-100) 93 L Heart rate 80 Respiratory Rate 16 Oxygen Delivery Method Nasal Cannula O2 Flow Rate 3 Throughout Breath Sounds Clear Treatment Modality Nebulizer Therapy Respiratory Medications Duoneb Medication Delivery Device Mask Treatment Tolerance Good Sub. Aerosol/MDI/DPI Treatment* Yes Post RT Medication Delivery Post Heart rate 80 Post Respiratory Rate (breaths/min) 18 Throughout Post Breath Sounds Clear Treatment Outcome No Change Comment no complications RT Cough/Suction Cough Description Non-Productive Saline lock insertion/management Start: 04/19/16 18: 31 Freq: .ONCE Status: Discharge Document 04/19/16 18:31 TAB (Rec: 04/19/16 19:55 TAB [id number]) IV Insertion/Site Assessment IV Attempt 2 Successful Successful Blood drawn and sent to Lab Yes Right Forearm IV Established TRUCK GUARD No Date of Insertion 04/19/16 Time of Insertion 18:30 Reason for IV Insertion Replace Lost Fluids Provide Access for IV Medication(s) IV Catheter Type Peripheral IV Gauge (gauge) 22 Site Observation Patent Dressing Applied Window Dressing Patient Tolerance Tolerated Well Sepsis Screening Start: 04/19/16 23: 13 Freq: Q8H Status: Discharge Document 04/20/16 08:26 JM (Rec: 04/20/16 08:30 [facility] [place] [id number]) Sepsis Screening Sepsis Infection Criteria Present none Sepsis SIRS Criteria none Sepsis Screen No Definite Risk Sepsis Action Taken no action required Document 04/20/16 16:02 JMP (Rec: 04/20/16 16:05 [facility] [place] [id number]) Sepsis Screening Sepsis Infection Criteria Present none Sepsis SIRS Criteria none Sepsis Screen No Definite Risk Sepsis Action Taken no action required Document 04/21/16 09:00 DAM (Rec: 04/21/16 09:19 DAM [id number]) Sepsis Screening Sepsis Infection Criteria Present none Sepsis SIRS Criteria none Sepsis Screen No Definite Risk Sepsis Action Taken no action required Document 04/21/16 16:11 DAM (Rec: 04/21/16 16:18 DAM [id number]) Sepsis Screening Sepsis Infection Criteria Present none Sepsis SIRS Criteria none Sepsis Screen No Definite Risk Sepsis Action Taken no action required Document 04/22/16 11:13 KMR (Rec: 04/22/16 11:28 KMR [id number]) Sepsis Screening Sepsis Infection Criteria Present none Sepsis SIRS Criteria none Sepsis Screen No Definite Risk Sepsis Action Taken no action required Skin Risk Assessment Scale Start: 04/19/16 23: 13 Freq: Q12H Status: Discharge Document 04/20/16 00:15 KDM (Rec: 04/20/16 00:19 KDM [id number]) Skin Risk Assessment Scale Moisture Risk Rarely Moist Sensory Perception Slightly Limited Activity Risk Walks Occasionally Mobility Risk Slightly Limited Nutrition Risk Adequate Friction & Shear Risk No Apparent Problem Skin Risk Total Score (points) 19 Document 04/20/16 08:26 [facility] [place] (Rec: 04/20/16 08:30 [facility] [place] [id number]) Skin Risk Assessment Scale Moisture Risk Rarely Moist Sensory Perception Slightly Limited Activity Risk Walks Occasionally Mobility Risk Slightly Limited Nutrition Risk Adequate Friction & Shear Risk No Apparent Problem Skin Risk Total Score (points) 19 Document 04/20/16 21:45 KDM (Rec: 04/21/16 01:34 KDM [id number]) Skin Risk Assessment Scale Moisture Risk Rarely Moist Sensory Perception Slightly Limited Activity Risk Walks Occasionally Mobility Risk Slightly Limited Nutrition Risk Adequate Friction & Shear Risk No Apparent Problem Skin Risk Total Score (points) 19 Document 04/21/16 09:00 DAM (Rec: 04/21/16 09:19 DAM [id number]) Skin Risk Assessment Scale Moisture Risk Rarely Moist Sensory Perception Slightly Limited Activity Risk Walks Occasionally Mobility Risk Slightly Limited Nutrition Risk Adequate Friction & Shear Risk No Apparent Problem Skin Risk Total Score (points) 19 Document 04/21/16 16:11 DAM (Rec: 04/21/16 16:18 DAM [id number]) Skin Risk Assessment Scale Moisture Risk Rarely Moist Sensory Perception Slightly Limited Activity Risk Walks Occasionally Mobility Risk Slightly Limited Nutrition Risk Adequate Friction & Shear Risk No Apparent Problem Skin Risk Total Score (points) 19 Document 04/21/16 22:47 KDM (Rec: 04/21/16 22:48 KDM [id number]) Skin Risk Assessment Scale Moisture Risk Rarely Moist Sensory Perception Slightly Limited Activity Risk Walks Occasionally Mobility Risk Slightly Limited Nutrition Risk Adequate Friction & Shear Risk No Apparent Problem Skin Risk Total Score (points) 19 Document 04/22/16 11:13 KMR (Rec: 04/22/16 11:28 KMR [id number]) Skin Risk Assessment Scale Moisture Risk Rarely Moist Sensory Perception Slightly Limited Activity Risk Walks Occasionally Mobility Risk Slightly Limited Nutrition Risk Adequate Friction & Shear Risk No Apparent Problem Skin Risk Total Score (points) 19 Strict NPO Start: 04/21/16 13: 23 Freq: Status: Discharge Document 04/21/16 13:23 JAB (Rec: 04/21/16 13:23 JAB [id number]) System Review Start: 04/19/16 23: 13 Freq: Q8H Status: Discharge Document 04/20/16 00:00 KDM (Rec: 04/20/16 00:11 KDM [id number]) Pain Assessment Pain Present Reports Pain Lower Extremity Description Burning Scale Used Numeric (1 - 10) Pain Intervention Medication Comment roxicodone given for pain Back Pain Intensity 8 Description Ache Throbbing Scale Used Numeric (1 - 10) Pain Intervention Medication Comment roxicodone given Neurological Assessment Eye Opening Spontaneous Motor Obeys Commands Verbal Oriented Coma Scale Total 15 Neurologic Status Alert Patient Orientation Person Place Time Arousable To Name Speech Pattern Normal rate Normal rhythm Normal tone Appropriate Clear Patient Behavior Appropriate Cooperative Mood Description Calm Relaxed Sensory Vision impaired Hash Slinger Strength Equal Push/Pull Equal Numbness/Tingling No Facial Symmetry Symmetrical Neurological Comment: patient is alert and oriented X3. patient shows no signs or symptoms of distress at this time will continue to monitor Cardiovascular Assessment Signs and Symptoms Hypertension Heart Sounds S1 & S2 Pulse Rhythm Regular Jugular Vein Distention None Capillary Refill < 3 Seconds Circulatory Tenderness Description None Right Radial 2+ Left Radial 2+ Right Dorsalis Pedis 1+ Left Dorsalis Pedis 1+ Bilateral Foot Type Pitting Degree 2+ Bilateral Leg Type Pitting Degree 2+ Has Confirmed Diagnosis of DVT, PE or No VTE VTE Prophylaxis PO Treatment Mechanical Prophylaxis No Reason Mechanical Device Not Applied Contraindicated Contraindication No VTE Prophylaxis Not indicated-Anticoagulated or INR therapeutic Pacemaker Assessment Cardiac Comment: no signs or symptoms of cardiac distress will continue to monitor Respiratory Assessment Respiratory Symptoms Shortness of Breath at Rest Shortness of Breath on Exertion Difficulty Clearing Secretions Productive Cough Dyspnea Dyspnea on Exertion Effort Normal for Patient Spontaneous Non-Labored Depth Normal Respiratory Pattern Regular Chest Shape Normal Expansion Symmetrical All Lung Oden Diminished Oxygen Delivery Method Nasal Cannula Oxygen Flow Rate (LPM) 4 Cough Description Productive Moist Cough Frequency Intermittent Sputum Amount Scant Color Green Brown Consistency Thick Respiratory Comment: patient reports coughing up sputum and patient made aware of need for sputum sample Gastrointestinal Assessment Abdomen Description Soft Non-Tender Large 3 or more loose stools, in less than 24 No hours Nausea/Vomiting Presence None GI Comment: patient states last BM was colace given to soften stool All Four Quadrants Active Flatus Presence Present Genitourinary Assessment Genitourinary Symptoms None Bladder Pattern Normal Voiding Method Toilet Bladder Distention None Suprapubic Tenderness with Palpation No Comment: no urine for RN to assess at this time patient made aware of need for urine sample Integumentary Assessment Fingernail Color Yellow Nail Bed Appearance [place] Temperature Warm Moisture Dry Turgor Normal Color Normal All Pressure Points Assessed Yes Evidence of Incision/Wounds/Breakdown Yes: open area right chest Mucous membranes moist, pink and intact No Oral Cavity White Patches Integumentary Comment: patient states taking nystatin at home for thrush, patient has open area to right chest from thoracotomy done last month. see wound assessment. Musculoskeletal Assessment Musculoskeletal Symptoms Generalized Weakness Musculoskeletal Comment: generalized weakness noted Document 04/20/16 08:26 JMP (Rec: 04/20/16 08:30 JMP [id number]) Pain Assessment Pain Present Reports No Pain Neurological Assessment Eye Opening Spontaneous Motor Obeys Commands Verbal Oriented Coma Scale Total 15 Neurologic Status Alert Patient Orientation Person Place Time Arousable To Name Speech Pattern Normal rate Normal rhythm Normal tone Appropriate Clear Patient Behavior Appropriate Cooperative Mood Description Calm Relaxed Bilateral Pupil Reaction Reactive Pupil Size (mm) 3 Pupil [place] Equal Hash Slinger Strength Equal Push/Pull Equal Numbness/Tingling No Facial Symmetry Symmetrical Neurological Comment: PATIENT DROWSY BUT AWAKENS TO VERBAL STIMULI. Cardiovascular Assessment Signs and Symptoms Hypertension Heart Sounds S1 & S2 Pulse Rhythm Regular Jugular Vein Distention None Capillary Refill < 3 Seconds Circulatory Tenderness Description None Right Radial 2+ Left Radial 2+ Right Dorsalis Pedis 1+ Left Dorsalis Pedis 1+ Bilateral Foot Type Pitting Degree 1+ Bilateral Leg Type Pitting Degree 1+ Has Confirmed Diagnosis of DVT, PE or No VTE VTE Prophylaxis PO Treatment Mechanical Prophylaxis No Cardiac Monitoring Heart Rate 82 Monitoring Method Telemetry Rhythm Sinus Rhythm [place] Interval 0.15 QRS Interval 0.06 QT Interval 0.34 Monitor Number [id number] Delivery Manager Limits 135/40 Strip placed in Chart Yes Respiratory Assessment Respiratory Symptoms Shortness of Breath at Rest Shortness of Breath on Exertion Difficulty Clearing Secretions Productive Cough Dyspnea Dyspnea on Exertion Effort Normal for Patient Spontaneous Non-Labored Depth Normal Respiratory Pattern Regular Chest Shape Normal Expansion Symmetrical Right Upper Lobe Clear Diminished Right Middle Lobe Clear Diminished Right Lower Lobe Clear Diminished Left Upper Lobe Clear Diminished Left Lower Lobe Clear Diminished Right Upper Lobe Clear Diminished Right Middle Lobe Clear Diminished Right Lower Lobe Fine Crackles Left Upper Lobe Clear Diminished Left Lower Lobe Fine Crackles Oxygen Delivery Method Nasal Cannula Oxygen Flow Rate (LPM) 5 FIO2 (%) (%) 36 Gastrointestinal Assessment Abdomen Description Soft Non-Tender Large 3 or more loose stools, in less than 24 No hours Nausea/Vomiting Presence None All Four Quadrants Active Genitourinary Assessment Genitourinary Symptoms None Bladder Pattern Normal Voiding Method Toilet Bladder Distention None Suprapubic Tenderness with Palpation No Integumentary Assessment Fingernail Color Yellow Nail Bed Appearance [place] Temperature Warm Moisture Dry Turgor Normal Color Normal Mucous membranes moist, pink and intact No Musculoskeletal Assessment Musculoskeletal Symptoms Generalized Weakness Document 04/20/16 16:02 [facility] [place] (Rec: 04/20/16 16:05 [facility] [id number]) Pain Assessment Pain Present Reports No Pain Neurological Assessment Eye Opening Spontaneous Motor Obeys Commands Verbal Oriented Coma Scale Total 15 Neurologic Status Alert Patient Orientation Person Place Time Arousable To Name Speech Pattern Normal rate Normal rhythm Normal tone Appropriate Clear Patient Behavior Appropriate Cooperative Mood Description Calm Relaxed Bilateral Pupil Reaction Reactive Pupil Size (mm) 3 Pupil [place] Equal Hash Slinger Strength Equal Numbness/Tingling No Facial Symmetry Symmetrical Cardiovascular Assessment Signs and Symptoms None Heart Sounds S1 & S2 Pulse Rhythm Regular Jugular Vein Distention None Capillary Refill < 3 Seconds Circulatory Tenderness Description None Right Radial 2+ Left Radial 2+ Right Dorsalis Pedis 1+ Left Dorsalis Pedis 1+ Bilateral Foot Type Non-Pitting Bilateral Leg Type Non-Pitting Has Confirmed Diagnosis of DVT, PE or No VTE VTE Prophylaxis PO Treatment Mechanical Prophylaxis No Cardiac Monitoring Heart Rate 96 Monitoring Method Telemetry Rhythm Sinus Rhythm [place] Interval 0.15 QRS Interval 0.04 QT Interval 0.29 Monitor Number [id number] Respiratory Assessment Respiratory Symptoms Shortness of Breath on Exertion Dyspnea Dyspnea on Exertion Effort Normal for Patient Spontaneous Non-Labored Depth Normal Respiratory Pattern Regular Chest Shape Normal Expansion Symmetrical Right Upper Lobe Clear Diminished Right Middle Lobe Clear Diminished Right Lower Lobe Clear Diminished Left Upper Lobe Clear Diminished Left Lower Lobe Clear Diminished Right Upper Lobe Clear Diminished Right Middle Lobe Clear Diminished Right Lower Lobe Fine Crackles Left Upper Lobe Clear Diminished Left Lower Lobe Fine Crackles Oxygen Delivery Method Nasal Cannula Oxygen Flow Rate (LPM) 5 Cough Description Productive Moist Cough Frequency Intermittent Gastrointestinal Assessment Abdomen Description Soft Non-Tender Large 3 or more loose stools, in less than 24 No hours Nausea/Vomiting Presence None All Four Quadrants Active Genitourinary Assessment Genitourinary Symptoms None Bladder Pattern Normal Voiding Method Toilet Bladder Distention None Suprapubic Tenderness with Palpation No Integumentary Assessment Fingernail Condition Clubbed Fingernail Color Yellow Nail Bed Appearance [place] Temperature Warm Moisture Dry Turgor Normal Color Normal Mucous membranes moist, pink and intact No Musculoskeletal Assessment Musculoskeletal Symptoms Generalized Weakness Document 04/20/16 21:45 [facility] (Rec: 04/21/16 01:33 [id number] Pain Assessment Pain Present Reports Pain Lower Extremity Pain Intensity 8 Description Burning Scale Used Numeric (1 - 10) Pain Intervention Medication Comment percocet given for pain Back Pain Intensity 8 Description Ache Scale Used Numeric (1 - 10) Pain Intervention Medication Comment percocet given Neurological Assessment Eye Opening Spontaneous Motor Obeys Commands Verbal Oriented Coma Scale Total 15 Neurologic Status Alert Patient Orientation Person Place Time Arousable To Name Speech Pattern Normal rate Normal rhythm Normal tone Appropriate Clear Patient Behavior Appropriate Cooperative Mood Description Calm Relaxed Bilateral Pupil Reaction Reactive Pupil Size (mm) 3 Pupil [place] Equal Sensory Vision impaired Hash Slinger Strength Equal Push/Pull Equal Numbness/Tingling No Facial Symmetry Symmetrical Neurological Comment: patient alert and oriented X3. patient shows no signs or syptoms of respiratory distress will continue to monitor Cardiovascular Assessment Signs and Symptoms None Heart Sounds S1 & S2 Pulse Rhythm Regular Jugular Vein Distention None Capillary Refill < 3 Seconds Circulatory Tenderness Description None Right Radial 2+ Left Radial 2+ Right Dorsalis Pedis 1+ Left Dorsalis Pedis 1+ Bilateral Foot Type Non-Pitting Bilateral Leg Type Non-Pitting Has Confirmed Diagnosis of DVT, PE or No VTE VTE Prophylaxis PO Treatment Mechanical Prophylaxis No Reason Mechanical Device Not Applied Contraindicated Contraindication No VTE Prophylaxis Not indicated-Anticoagulated or INR therapeutic Pacemaker Assessment Cardiac Comment: no signs or symptoms of cardiac distress will continue to monitor Respiratory Assessment Respiratory Symptoms Shortness of Breath on Exertion Dyspnea Dyspnea on Exertion Effort Normal for Patient Spontaneous Non-Labored Depth Normal Respiratory Pattern Regular Chest Shape Normal Expansion Symmetrical All Lung Oden Diminished Right Upper Lobe Clear Diminished Right Middle Lobe Clear Diminished Right Lower Lobe Clear Diminished Left Upper Lobe Clear Diminished Left Lower Lobe Clear Diminished Right Upper Lobe Clear Diminished Right Middle Lobe Clear Diminished Right Lower Lobe Fine Crackles Left Upper Lobe Clear Diminished Left Lower Lobe Fine Crackles Oxygen Delivery Method Nasal Cannula Oxygen Flow Rate (LPM) 5 FIO2 (%) (%) 40 Cough Description Productive Moist Cough Frequency Intermittent Sputum Amount Scant Color Green Brown Consistency Thick Respiratory Comment: - Gastrointestinal Assessment Abdomen Description Soft Non-Tender Large 3 or more loose stools, in less than 24 No hours Nausea/Vomiting Presence None GI Comment: colace given for constipation All Four Quadrants Active Genitourinary Assessment Genitourinary Symptoms None Bladder Pattern Normal Voiding Method Toilet Bladder Distention None Suprapubic Tenderness with Palpation No Comment: no urine for RN to assess at this time Integumentary Assessment Fingernail Condition Clubbed Fingernail Color Yellow Nail Bed Appearance [place] Temperature Warm Moisture Dry Turgor Normal Color Normal Mucous membranes moist, pink and intact No Integumentary Comment: patient states taking nystatin at home for thrush, patient has open area to right chest from thoracotomy done last month. see wound assessment. Musculoskeletal Assessment Musculoskeletal Symptoms Generalized Weakness Musculoskeletal Comment: generalized weakness noted Document 04/21/16 03:40 [facility] (Rec: 04/21/16 03:42 [facility] [id number]) Pain Assessment Pain Present Allowed to Sleep Cardiovascular Assessment Has Confirmed Diagnosis of DVT, PE or No VTE VTE Prophylaxis PO Treatment Mechanical Prophylaxis No Reason Mechanical Device Not Applied Contraindicated Contraindication No VTE Prophylaxis Not indicated-Anticoagulated or INR therapeutic Respiratory Assessment Respiratory Symptoms Shortness of Breath on Exertion Dyspnea Dyspnea on Exertion Effort Normal for Patient Spontaneous Non-Labored Depth Normal Respiratory Pattern Regular Chest Shape Normal Expansion Symmetrical All Lung Oden Diminished Oxygen Delivery Method Nasal Cannula Oxygen Flow Rate (LPM) 5 FIO2 (%) (%) 40 Document 04/21/16 09:00 [facility] (Rec: 04/21/16 09:19 [facility] [id number]) Pain Assessment Pain Present Reports Pain Lower Extremity Pain Intensity 6 Description Ache Scale Used Numeric (1 - 10) Pain Intervention Medication Neurological Assessment Eye Opening Spontaneous Motor Obeys Commands Verbal Oriented Coma Scale Total 15 Neurologic Status Alert Patient Orientation Person Place Time Arousable To Name Speech Pattern Normal rate Normal rhythm Normal tone Appropriate Clear Patient Behavior Appropriate Cooperative Mood Description Calm Relaxed Bilateral Pupil Reaction Reactive Pupil Size (mm) 3 Pupil [place] Equal Sensory Vision impaired Hash Slinger Strength Equal Push/Pull Equal Numbness/Tingling No Facial Symmetry Symmetrical Blink Present Cough/Gag Normal Neurological Comment: patient alert and oriented X3. patient shows no signs or syptoms of respiratory distress will continue to monitor Cardiovascular Assessment Signs and Symptoms None Heart Sounds S1 & S2 Pulse Rhythm Regular Jugular Vein Distention None Capillary Refill < 3 Seconds Circulatory Tenderness Description None Right Radial 2+ Left Radial 2+ Right Dorsalis Pedis 1+ Left Dorsalis Pedis 1+ Bilateral Foot Type Non-Pitting Degree 1+ Bilateral Leg Type Non-Pitting Degree 2+ Chest Pain Complaint No Has Confirmed Diagnosis of DVT, PE or No VTE VTE Prophylaxis PO Treatment Mechanical Prophylaxis No Reason Mechanical Device Not Applied Contraindicated Contraindication No VTE Prophylaxis Not indicated-Anticoagulated or INR therapeutic Cardiac Monitoring Heart Rate 85 Monitoring Method Telemetry Rhythm Sinus Rhythm [place] Interval 0.15 QRS Interval 0.09 QT Interval 0.31 Monitor Number [id number] Strip placed in Chart Yes Respiratory Assessment Respiratory Symptoms Shortness of Breath on Exertion Dyspnea Dyspnea on Exertion Effort Normal for Patient Spontaneous Non-Labored Depth Normal Respiratory Pattern Regular Chest Shape Normal Expansion Symmetrical Right Upper Lobe Diminished Right Middle Lobe Diminished Right Lower Lobe Diminished Left Upper Lobe Vesicular Left Lower Lobe Diminished Right Upper Lobe Expiratory Wheezing Right Middle Lobe Expiratory Wheezing Right Lower Lobe Fine Crackles Left Upper Lobe Expiratory Rhonchi Left Lower Lobe Fine Crackles Oxygen Delivery Method Nasal Cannula Oxygen Flow Rate (LPM) 5 FIO2 (%) (%) 40 Cough Description Non-Productive Moist Cough Frequency Intermittent Sputum Amount None Gastrointestinal Assessment Abdomen Description Soft Non-Tender Large 3 or more loose stools, in less than 24 No hours Nausea/Vomiting Presence None All Four Quadrants Active Genitourinary Assessment Genitourinary Symptoms None Bladder Pattern Normal Voiding Method Toilet Comment: no urine for RN to assess at this time Integumentary Assessment Fingernail Condition Clubbed Fingernail Color Yellow Nail Bed Appearance [place] Temperature Warm Moisture Dry Turgor Normal Color Normal Mucous membranes moist, pink and intact No Oral Cavity Normal Musculoskeletal Assessment Musculoskeletal Symptoms Generalized Weakness Document 04/21/16 16:11 [facility] (Rec: 04/21/16 16:18 [facility] [id number]) Pain Assessment Pain Present Reports No Pain Neurological Assessment Eye Opening Spontaneous Motor Obeys Commands Verbal Oriented Coma Scale Total 15 Neurologic Status Alert Patient Orientation Person Place Time Arousable To Name Speech Pattern Normal rate Normal rhythm Normal tone Appropriate Clear Patient Behavior Appropriate Cooperative Mood Description Calm Relaxed Bilateral Pupil Reaction Reactive Pupil Size (mm) 3 Pupil [place] Equal Hash Slinger Strength Equal Push/Pull Equal Numbness/Tingling No Blink Present Cough/Gag Normal Cardiovascular Assessment Signs and Symptoms None Heart Sounds S1 & S2 Pulse Rhythm Regular Jugular Vein Distention None Capillary Refill < 3 Seconds Circulatory Tenderness Description None Right Radial 2+ Left Radial 2+ Right Dorsalis Pedis 1+ Left Dorsalis Pedis 1+ Bilateral Foot Type Non-Pitting Degree 1+ Bilateral Leg Type Pitting Degree 2+ Chest Pain Complaint No Has Confirmed Diagnosis of DVT, PE or No VTE VTE Prophylaxis PO Treatment Mechanical Prophylaxis No Reason Mechanical Device Not Applied Contraindicated Contraindication No VTE Prophylaxis Not indicated-Anticoagulated or INR therapeutic Cardiac Monitoring Heart Rate 87 Monitoring Method Telemetry Rhythm Sinus Rhythm [place] Interval 0.13 QRS Interval 0.08 QT Interval 0.31 Monitor Number [id number] Strip placed in Chart Yes Respiratory Assessment Respiratory Symptoms Shortness of Breath on Exertion Dyspnea Dyspnea on Exertion Effort Normal for Patient Spontaneous Non-Labored Depth Normal Respiratory Pattern Regular Chest Shape Normal Expansion Symmetrical All Lung Oden Diminished Right Upper Lobe Diminished Right Middle Lobe Diminished Right Lower Lobe Diminished Left Upper Lobe Vesicular Left Lower Lobe Diminished Right Upper Lobe Diminished Right Middle Lobe Diminished Right Lower Lobe Fine Crackles Left Upper Lobe Diminished Left Lower Lobe Fine Crackles Oxygen Delivery Method Nasal Cannula Oxygen Flow Rate (LPM) 5 FIO2 (%) (%) 40 Cough Description Non-Productive Moist Cough Frequency Intermittent Sputum Amount None Color Green Brown Consistency Thick Gastrointestinal Assessment Abdomen Description Soft Non-Tender Large 3 or more loose stools, in less than 24 No hours Nausea/Vomiting Presence None All Four Quadrants Active Genitourinary Assessment Genitourinary Symptoms None Bladder Pattern Normal Voiding Method Toilet Bladder Distention None Suprapubic Tenderness with Palpation No Comment: no urine for RN to assess at this time Integumentary Assessment Fingernail Condition Clubbed Fingernail Color Yellow Nail Bed Appearance [place] Temperature Warm Moisture Dry Turgor Normal Color Normal Mucous membranes moist, pink and intact No Oral Cavity Normal Integumentary Comment: patient states taking nystatin at home for thrush, patient has open area to right chest from thoracotomy done last month. see wound assessment. Musculoskeletal Assessment Musculoskeletal Symptoms Generalized Weakness Document 04/21/16 20:59 [facility] (Rec: 04/21/16 21:06 [facility] [id number]) Pain Assessment Pain Present Reports Pain Lower Extremity Pain Intensity 7 Description Burning Scale Used Numeric (1 - 10) Pain Intervention Medication Comment percocet given Back Pain Intensity 7 Description Ache Scale Used Numeric (1 - 10) Pain Intervention Medication Comment percocet given Neurological Assessment Eye Opening Spontaneous Motor Obeys Commands Verbal Oriented Coma Scale Total 15 Neurologic Status Alert Patient Orientation Person Place Time Arousable To Name Speech Pattern Normal rate Normal rhythm Normal tone Appropriate Clear Patient Behavior Appropriate Cooperative Mood Description Calm Relaxed Bilateral Pupil Reaction Reactive Pupil Size (mm) 3 Pupil [place] Equal Sensory Vision impaired Hash Slinger Strength Equal Push/Pull Equal Numbness/Tingling No Facial Symmetry Symmetrical Neurological Comment: patient alert and oriented X3. patient shows no signs or syptoms of respiratory distress will continue to monitor Cardiovascular Assessment Signs and Symptoms None Heart Sounds S1 & S2 Pulse Rhythm Regular Jugular Vein Distention None Capillary Refill < 3 Seconds Circulatory Tenderness Description None Right Radial 2+ Left Radial 2+ Right Dorsalis Pedis 1+ Left Dorsalis Pedis 1+ Bilateral Foot Type Non-Pitting Degree 1+ Bilateral Leg Type Pitting Degree 2+ Has Confirmed Diagnosis of DVT, PE or No VTE VTE Prophylaxis SQ Treatment Mechanical Prophylaxis No Reason Mechanical Device Not Applied Contraindicated Contraindication No VTE Prophylaxis Not indicated-Anticoagulated or INR therapeutic Pacemaker Assessment Cardiac Comment: no signs or symptoms of cardiac distress will continue to monitor Respiratory Assessment Respiratory Symptoms Shortness of Breath on Exertion Dyspnea Dyspnea on Exertion Effort Normal for Patient Spontaneous Non-Labored Depth Normal Respiratory Pattern Regular Chest Shape Normal Expansion Symmetrical All Lung Oden Diminished Oxygen Delivery Method Nasal Cannula Oxygen Flow Rate (LPM) 4 FIO2 (%) (%) 40 Respiratory Comment: - Gastrointestinal Assessment Abdomen Description Soft Non-Tender Large 3 or more loose stools, in less than 24 No hours Nausea/Vomiting Presence None GI Comment: patient stated last bm was yesterday senna given to patient All Four Quadrants Active Genitourinary Assessment Genitourinary Symptoms None Bladder Pattern Normal Voiding Method Toilet Bladder Distention None Suprapubic Tenderness with Palpation No Comment: no urine for RN to assess at this time Integumentary Assessment Fingernail Condition Clubbed Fingernail Color Yellow Nail Bed Appearance [place] Temperature Warm Moisture Dry Turgor Normal Color Normal Mucous membranes moist, pink and intact No Oral Cavity Normal Integumentary Comment: redness to righ tside of chest open area from thoracotomy performed in march see wound assessment. Musculoskeletal Assessment Musculoskeletal Symptoms Generalized Weakness Musculoskeletal Comment: generalized weakness noted Document 04/22/16 03:43 [facility] (Rec: 04/22/16 03:44 [facility] [id number]) Pain Assessment Pain Present Allowed to Sleep Cardiovascular Assessment Has Confirmed Diagnosis of DVT, PE or No VTE VTE Prophylaxis SQ Treatment Mechanical Prophylaxis No Reason Mechanical Device Not Applied Contraindicated Contraindication No VTE Prophylaxis Not indicated-Anticoagulated or INR therapeutic Respiratory Assessment Respiratory Symptoms Shortness of Breath on Exertion Dyspnea Dyspnea on Exertion Effort Normal for Patient Spontaneous Non-Labored Depth Normal Respiratory Pattern Regular Chest Shape Normal Expansion Symmetrical All Lung Oden Diminished Document 04/22/16 11:13 [facility] (Rec: 04/22/16 11:28 [facility] [id number]) Pain Assessment Pain Present Reports No Pain Neurological Assessment Eye Opening Spontaneous Motor Obeys Commands Verbal Oriented Coma Scale Total 15 Neurologic Status Alert Patient Orientation Person Place Time Arousable To Name Speech Pattern Normal rate Normal rhythm Normal tone Appropriate Clear Patient Behavior Appropriate Cooperative Mood Description Calm Relaxed Bilateral Pupil Reaction Reactive Pupil Size (mm) 3 Pupil [place] Equal Sensory Vision impaired Hash [place] Strength Equal Push/Pull Equal Numbness/Tingling No Facial Symmetry Symmetrical Blink Present Cough/Gag Normal Neurological Comment: patient alert and oriented X3. patient shows no signs or syptoms of respiratory distress will continue to monitor Cardiovascular Assessment Signs and Symptoms None Heart Sounds S1 & S2 Pulse Rhythm Regular Jugular Vein Distention None Capillary Refill < 3 Seconds Circulatory Tenderness Description None Right Radial 2+ Left Radial 2+ Right Dorsalis Pedis 1+ Left Dorsalis Pedis 1+ Bilateral Foot Type Non-Pitting Degree 1+ Bilateral Leg Type Pitting Degree 2+ Chest Pain Complaint No Has Confirmed Diagnosis of DVT, PE or No VTE VTE Prophylaxis SQ Treatment Mechanical Prophylaxis No Reason Mechanical Device Not Applied Contraindicated Contraindication No VTE Prophylaxis Not indicated-Anticoagulated or INR therapeutic Cardiac Monitoring Monitoring Method Telemetry Rhythm Sinus Rhythm Monitor Number [id number] Strip placed in Chart Yes Pacemaker Assessment Cardiac Comment: no signs or symptoms of cardiac distress will continue to monitor Respiratory Assessment Respiratory Symptoms Shortness of Breath on Exertion Dyspnea Dyspnea on Exertion Effort Normal for Patient Spontaneous Non-Labored Depth Normal Respiratory Pattern Regular Chest Shape Normal Expansion Symmetrical All Lung Oden Diminished Right Upper Lobe Diminished Right Middle Lobe Diminished Right Lower Lobe Diminished Left Upper Lobe Vesicular Left Lower Lobe Diminished Right Upper Lobe Diminished Right Middle Lobe Diminished Right Lower Lobe Fine Crackles Left Upper Lobe Diminished Left Lower Lobe Fine Crackles Oxygen Delivery Method Nasal Cannula Oxygen Flow Rate (LPM) 3 FIO2 (%) (%) 40 Cough Description Non-Productive Moist Cough Frequency Intermittent Sputum Amount None Color Green Brown Consistency Thick Respiratory Comment: - Gastrointestinal Assessment Abdomen Description Soft Non-Tender Large 3 or more loose stools, in less than 24 No hours Nausea/Vomiting Presence None GI Comment: patient stated last bm was yesterday senna given to patient All Four Quadrants Active Flatus Presence Present Genitourinary Assessment Genitourinary Symptoms None Bladder Pattern Normal Voiding Method Toilet Color Bright Yellow Dark Yellow Bladder Distention None Suprapubic Tenderness with Palpation No Comment: no urine for RN to assess at this time Integumentary Assessment Fingernail Condition Clubbed Fingernail Color Yellow Nail Bed Appearance [place] Temperature Warm Moisture Dry Turgor Normal Color Normal Mucous membranes moist, pink and intact No Oral Cavity Normal Integumentary Comment: redness to righ tside of chest open area from thoracotomy performed in march see wound assessment. Musculoskeletal Assessment Musculoskeletal Symptoms Generalized Weakness Musculoskeletal Comment: generalized weakness noted Teaching Record Start: 04/19/16 23: 13 Freq: Q12H Status: Discharge Document 04/20/16 00:15 [facility] (Rec: 04/20/16 00:19 [facility] [id number]) Teaching Record: General Education Topics Medications Hospital Environment Diet Equipment Use Response Verbalize understanding Methods Discussion Recipient Patient Education Provided: Details patient oriented to room and staff. patient educated to night time medications being given at this time. patient educated on fluid restriction diet and that it is 1500 fluid restriction and that she will be closely monitored on intake due to swelling of bilateral legs. patient verbalized udnerstanding. patient educated diamond sander light system, patient educated to hit call light when in need of assistance to prevent falls. patient verbalized udnerstanding. Document 04/20/16 08:26 JMP (Rec: 04/20/16 08:30 [facility] [id number]) Teaching Record: General Response Verbalize understanding Methods Discussion Recipient Patient Education Provided: Details FALL PRECAUTIONS Document 04/20/16 21:45 [facility] (Rec: 04/21/16 01:33 [facility] [id number]) Teaching Record: General Education Topics Medications Hospital Environment Equipment Use Response Verbalize understanding Methods Discussion Recipient Patient Education Provided: Details patient educated on nightime medications, patient educated to hit call light when in need of assistance. patient verbalized udnerstanding Document 04/21/16 09:00 [facility] (Rec: 04/21/16 09:19 [facility] [id number]) Teaching Record: General Education Topics Medications Hospital Environment Equipment Use Response Verbalize understanding Methods Discussion Recipient Patient Education Provided: Details patient educated on medications, patient educated to hit call light when in need of assistance. patient verbalized udnerstanding Document 04/21/16 22:47 [facility] (Rec: 04/21/16 22:48 [facility] [id number]) Teaching Record: General Education Topics Medications Hospital Environment Equipment Use Response Verbalize understanding Methods Discussion Recipient Patient Education Provided: Details patient educated on night time medications, patient educated to call light system and to hit call light when in need of assistance to prevent falls, patient verbalized udnerstanding Document 04/22/16 11:13 [facility] (Rec: 04/22/16 11:28 [facility] [id number]) Teaching Record: General Education Topics Medications Hospital Environment Equipment Use Response Verbalize understanding Methods Discussion Recipient Patient Education Provided: Details patient was educated on plan of care and morning medications and the plan of care for the day Thrombosis Risk Factor Assessment Start: 04/19/16 23: 13 Freq: .ONCE Status: Complete Document 04/19/16 23:14 [facility] (Rec: 04/19/16 23:22 KDM [id number]) Thrombosis Risk Factor Assessment Each Factor Represents 1 point Age 41 - 59 years Swollen legs (current Abnormal pulmonary function ( COPD) Other congenital or acquired No thrombophilia - If yes, enter Type in comment Total Risk Factor Score 3 Risk Level Higher Risk Triage Start: 04/19/16 15: 06 Freq: Status: Complete Document 04/19/16 15:07 [facility] (Rec: 04/19/16 15:09 [facility] [id number]) Triage Chief Complaint triage ED Extremity Problem, Nontraumatic Patient Stated Complaint bilateral leg edema GEOVANY 3 Onset (ago) day(s) Description of Symptoms Pt states she recently had a thoracotomy and since has developed BLL edema General Appearance alert in no apparent distress Work Related Injury? No Mode of arrival ambulatory Source patient family Limitations no limitations Ebola Risk: Travel/Contact With Anyone No From Affected Area/s Has Patient Experienced Ebola Symptoms No Temperature (97.6 F-99.6 F) 97.9 F Temperature Source Oral Pulse Rate 103 Respiratory Rate 22 Blood Pressure 136/85 O2 Sat by Pulse Oximetry (95-100) 91 L Oxygen Delivery Nasal Cannula Height 1.65 m Weight 122.47 kg Weight Measurement Method Estimated by Patient Pain Scale 8 Pain Scale Used Standard (1-10) Medical history COPD GERD other Additional surgical history PMH vulvar condylomata removal LEEP conizaton EGD Condyloma removal partial vulvectomy bronchoscopy Psychiatric history anxiety bipolar depression Smoking Status Current every day smoker Smokeless Tobacco Status No Alcohol Use occasionally Drug Use marijuana Patient resides with/at Significant Other Safety Concerns Feels Safe At This Time Do you currently feel hopless, have No thoughts of self harm, or thoughts of harming others History of fall in last 14 days? 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 polycystic ovary syndrome bilateral tubal ligation Influenza vaccine up to date No Pneumonia vaccine up to date No Tetanus UTD unsure Vital Signs Assessment Start: 04/19/16 15: 09 Freq: Status: Discharge Document 04/19/16 19:09 TAB (Rec: 04/19/16 19:23 TAB [id number]) ED Vital Signs Pain Reported Pain Reported Pain Scale 8 Pain Scale Used Standard (1-10) Blood Pressure 136/85 Blood Pressure Location Left Arm Source Automatic Cuff Position HOB Elevated Pulse Rate 103 Rhythm Regular Strength Normal Respiratory Rate 22 Depth Normal Effort Non-Labored Pattern Regular Pulse Oximetry (95-100) 91 L Oxygen Delivery Nasal Cannula Oxygen Flow Rate (LPM) 4 Vital Signs Assessment Start: 04/19/16 18: 31 Freq: PROTOCOL Status: Discharge Document 04/20/16 07:00 JTD (Rec: 04/20/16 08:09 JTD [id number]) Vital Signs with MEWS Temperature (97.6 F-99.6 F) 97.6 F Temperature Source Oral Pulse Rate 74 Respiratory Rate 18 Pulse Oximetry (95-100) 94 L Oxygen Delivery Nasal Cannula Blood Pressure 108/66 Blood Pressure Location Left Arm Source Automatic Cuff Position Sitting Document 04/21/16 04:00 DLS (Rec: 04/21/16 05:55 DLS [id number]) Vital Signs with MEWS Temperature (97.6 F-99.6 F) 97.3 F L Temperature Source Oral Pulse Rate 88 Respiratory Rate 18 Pulse Oximetry (95-100) 92 L Oxygen Delivery Nasal Cannula Humidified Oxygen Flow Rate (LPM) 5 Blood Pressure 105/65 Vital Signs Assessment Start: 04/19/16 22: 22 Freq: Q4H Status: Discharge Document 04/20/16 11:39 JTD (Rec: 04/20/16 11:40 JTD [id number]) Vital Signs with MEWS Temperature (97.6 F-99.6 F) 98.4 F Temperature Source Oral Pulse Rate 81 Respiratory Rate 18 Pulse Oximetry (95-100) 91 L Oxygen Delivery Nasal Cannula Blood Pressure 115/71 Blood Pressure Location Left Arm Source Automatic Cuff Position Sitting Vital Signs Assessment Start: 04/19/16 23: 13 Freq: Q4H Status: Discharge Document 04/19/16 23:15 TRM (Rec: 04/19/16 23:16 TRM [id number]) Vital Signs with MEWS Temperature (97.6 F-99.6 F) 97.8 F Temperature Source Oral Pulse Rate 91 Respiratory Rate 17 Pulse Oximetry (95-100) 95 Oxygen Delivery Nasal Cannula Oxygen Flow Rate (LPM) 4 Blood Pressure 145/94 Blood Pressure Location Left Arm Source Automatic Cuff Position Supine Neuro Status *recalled from last Alert documentation MEWS Score 1 Document 04/20/16 04:00 DLS (Rec: 04/20/16 05:52 DLS [id number]) Vital Signs with MEWS Temperature (97.6 F-99.6 F) 98.4 F Temperature Source Oral Pulse Rate 89 Respiratory Rate 20 Pulse Oximetry (95-100) 92 L Oxygen Delivery Nasal Cannula Humidified Oxygen Flow Rate (LPM) 5 Blood Pressure 125/71 Document 04/20/16 21:00 DLS (Rec: 04/20/16 22:59 DLS [id number]) Vital Signs with MEWS Temperature (97.6 F-99.6 F) 97.7 F Temperature Source Axillary Pulse Rate 104 Respiratory Rate 20 Pulse Oximetry (95-100) 97 Oxygen Delivery Nasal Cannula Humidified Oxygen Flow Rate (LPM) 5 Blood Pressure 105/72 Document 04/21/16 06:38 JAB (Rec: 04/21/16 06:40 JAB [id number]) Vital Signs with MEWS Temperature (97.6 F-99.6 F) 98.1 F Temperature Source Axillary Pulse Rate 82 Respiratory Rate 16 Pulse Oximetry (95-100) 95 Oxygen Delivery Nasal Cannula Humidified Oxygen Flow Rate (LPM) 5 Blood Pressure 126/65 Blood Pressure Location Left Arm Source Automatic Cuff Position HOB Elevated Neuro Status *recalled from last Alert documentation MEWS Score 1 Document 04/21/16 15:39 JAB (Rec: 04/21/16 15:41 JAB [id number]) Vital Signs with MEWS Temperature (97.6 F-99.6 F) 98 F Temperature Source Axillary Pulse Rate 84 Respiratory Rate 20 Pulse Oximetry (95-100) 95 Oxygen Delivery Nasal Cannula Humidified Oxygen Flow Rate (LPM) 5 Blood Pressure 121/73 Blood Pressure Location Left Arm Source Automatic Cuff Position HOB Elevated Neuro Status *recalled from last Alert documentation MEWS Score 1 Document 04/21/16 22:00 TRM (Rec: 04/21/16 22:30 TRM [id number]) Vital Signs with MEWS Temperature (97.6 F-99.6 F) 97.4 F L Temperature Source Oral Pulse Rate 82 Respiratory Rate 18 Pulse Oximetry (95-100) 93 L Oxygen Delivery Nasal Cannula Oxygen Flow Rate (LPM) 5 Blood Pressure 108/66 Blood Pressure Location Right Arm Source Automatic Cuff Position Supine Neuro Status *recalled from last Alert documentation MEWS Score 1 Document 04/22/16 05:53 TRM (Rec: 04/22/16 05:54 TRM [id number]) Vital Signs with MEWS Pulse Rate 76 Respiratory Rate 18 Pulse Oximetry (95-100) 95 Oxygen Delivery Nasal Cannula Blood Pressure 117/71 Blood Pressure Location Right Arm Source Automatic Cuff Position Sitting Neuro Status *recalled from last Alert documentation 04/22/16 05:54 Nurse Note by Sandee Boothe patient denies needs at this time Initialized on 04/22/16 05:54 - END OF NOTE Document 03/09/17 06:47 ARB (Rec: 04/22/16 06:51 ARB [id number]) Vital Signs with MEWS Temperature (97.6 F-99.6 F) 97.6 F Temperature Source Axillary Pulse Rate 73 Respiratory Rate 16 Pulse Oximetry (95-100) 97 Oxygen Delivery Nasal Cannula Oxygen Flow Rate (LPM) 5 Blood Pressure 113/74 Blood Pressure Location Left Arm Source Automatic Cuff Position Sitting Document 04/22/16 11:09 ARB (Rec: 04/22/16 11:16 ARB [id number]) Vital Signs with MEWS Temperature (97.6 F-99.6 F) 98.2 F Temperature Source Oral Pulse Rate 91 Respiratory Rate 16 Pulse Oximetry (95-100) 93 L Oxygen Delivery Nasal Cannula Oxygen Flow Rate (LPM) 3 Blood Pressure 116/80 Blood Pressure Location Left Arm Source Automatic Cuff Position Sitting Wound Assessment Start: 04/19/16 23: 13 Freq: Q8H Status: Discharge Document 04/20/16 00:15 KDM (Rec: 04/20/16 00:19 KDM [id number]) Wound Assessment Right Chest Wound Type Surgical Wound Wound Length (cm) 2 Wound Width (cm) 1 Wound Bed Appearance [place] Wound Surrounding Tissue Appearance ( Dry Periwound) 1 Intact Surrounding Tissue Temperature Warm Wound Drainage Amount 1 None Wound Drainage Odor No Odor Wound Dressing Status Open to Air Discharge Information ED Provider: Warren Cano Status: Departed Time Seen by Provider: 04/19/16 18:13 Condition: Good Triaged At: 04/19/16 15:07 Emergency Discharge Date/Time: 04/19/16 23:00 Emergency Discharge Disposition: Admitted As Inpatient Clinical Impression MECHELLE (acute kidney injury) Dyspnea Hypoxia Lower extremity edema Interstitial lung disease Emergency Discharge Comment: Admit Intervention Last Done ED Nontraumatic Extremity Injury Assmnt 04/19/16 19:09 Query Result Extremity Problem Symptoms/Complaint Extremity Pain Extremity Swelling Extremity Problem Onset "about a week" Extremity Problem Consistency Constant Extremity Radiation Proximal Extremity Context Unknown Extremity Improves With Nothing Extremity Worsens With Range of Motion Weight Bearing Walking Extremity Associated Symptoms Denies Other Symptoms Level Of Consciousness Awake Alert Appropriate Follows Commands Patient Orientation Person Place Name Age Date of Respiratory Depth Normal Respiratory Effort Non-Labored Respiratory Pattern Regular Bilateral Leg -Edema Degree 2+ ED Comment "legs started swelling about a wek ago, stomach started hurting about the " ED Discharge Assessment 04/19/16 22:58 Query Result ED Discharge Disposition Admitted ED Condition on Discharge Fair Med Rec/Patient Phamracy completed? No ED Admit to 2NE Bed assigned 2 NE 35 Transported by validation technician Transported with oxygen IV continuing medication Report given to Nurse Care transferred to Ashleigh RN Information relayed patient's care treatments medications given condition Severity scale (1-10) 3 Pain Scale Used Standard (1-10) Blood Pressure 120/63 Heart rate 87 Respiratory Rate 18 Oxygen Delivery Nasal Cannula Pulse Oximetry Reading 4 Critical Care Minutes 0 Observation Discharge Date/Time: 04/22/16 16:00 Observation Discharge Disposition: Home, Self-Care Observation Discharge Comment: t Instructions: Dyspnea (GEN) Stand-Alone Forms: Prescriptions: Clindamycin [Cleocin] Hima Cavazos OxyCODONE/APAP 10/325 [Percocet 10/325 MG] Hima Cavazos Visit Report - Forms: - Referrals: Mervin Santiago MD (Primary Care Provider) - 04/28/16 9:45 am Ernestina Heard MD (Partnered Physician) - 05/06/16 2:40 pm Radiology Results Chest X-Ray 04/19/16 18:31 IMPRESSION: Low lung volumes with bibasilar atelectasis or pneumonia D/ / Elliott Rodríguez MD / Elliott Rodríguez MD Interpreting Provider: Elliott Rodríguez MD Chest CT 04/20/16 07:30 IMPRESSION: Focal fluid collection in right chest wall, presumably postoperative given history of thoracotomy. Correlate for any clinical signs of infection Scattered bandlike opacities throughout the lungs, likely atelectasis. Post wedge resection changes are noted Scattered cystic foci throughout the lungs, similar to prior. Findings are either due to underlying cystic lung disease or underlying emphysema. mildly enlarged mediastinal nodes, similar to prior D/ / Rubén Emanuel MD / Rubén Emanuel MD Interpreting Provider: Rubén Emanuel MD Abdomen Ultrasound 03/08/17 16:30 IMPRESSION: Unremarkable right upper quadrant ultrasound. D/ / Elliott Rodríguez MD / Elliott Rodríguez MD Interpreting Provider: Elliott Rodríguez MD
[2016-04-19] MEDS ORDERED: Fluconazole 40 MG/ML UDC PO SCH (23:30)
[2016-04-19] MEDS: Nicotine 21 MG PATCH.TD24 TD SCH (23:45)
[2016-04-19] MEDS: Ipratropium/Albuterol Neb 3 ML IH SCH (23:55)
[2016-04-20] MEDS ORDERED: Fluconazole 100 MG TABLET PO SCH (00:30)
[2016-04-20] MEDS: Nystatin SUSP 5 ML UD.LIQ PO SCH ×5 (00:38→22:07)
[2016-04-20 03:13] LABS: Bilirubin,Urine Negative (Negative); Blood,Urine Negative (Negative); Clarity,Urine Clear (Clear); Color,Urine Yellow (Yellow); Glucose,Urine (UA) Normal (Normal); Ketones,Urine Negative (Negative); Leukocyte Esterase,Urine Negative (Negative); Nitrite,Urine Negative (Negative); PH,Urine 6.5 pH Units (5.0-8.0); Protein,Urine Negative (Neg-Trace); Specific Gravity,Urine 1.007 (1.010-1.025); Urobilinogen,Urine Normal (Normal)
[2016-04-20 03:27] LABS: Albumin 2.9 g/dL (3.5-5.0); Albumin/Globulin Ratio 0.8 (1.1-2.2); Bilirubin,Total 0.2 mg/dL (0.2-1.2); Calcium 8.2 mg/dL (8.6-10.8); Globulin 3.5 g/dL (2.4-3.5); Magnesium 2.1 mg/dL (1.6-2.6); Phosphorous 4.9 mg/dL (2.3-4.7); Potassium 3.4 mEq/L (3.5-4.5); Total Protein 6.4 g/dL (6.0-8.3)
[2016-04-20] MEDS ORDERED: Vancomycin 1,750 MG in D5% in Water 500 ML IVPB SCH (04:30)
[2016-04-20] MEDS ORDERED: Vancomycin 1,750 MG in D5% in Water 250 ML IVPB SCH ×2 (05:00→21:00)
[2016-04-20] MEDS: Ipratropium/Albuterol Neb 3 ML IH SCH ×3 (05:34→15:56)
[2016-04-20] MEDS ORDERED: predniSONE 20 MG TABLET PO SCH (09:00)
[2016-04-20] MEDS: Nicotine 21 MG PATCH.TD24 TD SCH (09:45)
[2016-04-20] MEDS: ARIPiprazole 10 MG TABLET PO SCH (09:45)
[2016-04-20] MEDS: Baclofen 10 MG TABLET PO SCH ×3 (09:46→22:07)
[2016-04-20] MEDS: Aspirin Enteric Coated 81 MG Tablet PO SCH (09:52)
--- NOTE | 2016-04-20 13:21 | Venous Imaging Report ---
LE Venous Duplex Patient Name:Kim Monet Order Number:[id number] Procedure Date:04/19/2016 Date:1980Age:35 yrs Gender:Female Location:[facility] [place] ED Room #: ED31 Manager Animation:Kim Stanford Referring MD:Hector Fisher DO digital photographer:Mervin Santiago MD Reading MD:Elliott Hernandez MD , FACS Primary Indications:Bilateral swelling, recent hospitalization Secondary Indications: Impressions: Bilateral lower extremity: normal superficial and deep exam. Recommendations: Test completed on 04/19/2016 at 8:49:00 pm. Critical findings reported to Dr. Fisher-ED- in person at 8:50:00 pm on 04/19/2016 by Kim Stanford. Findings Prior Study: No prior study available for comparison. Lower Extremity Venous Duplex Side Vein Compress Spontaneous Flow Augment Diameter (cm) Depth (cm) Right Distal Iliac Normal Yes Phasic Yes Right Common Femoral Normal Yes Phasic Yes Right Superficial Femoral Normal Yes Phasic Yes Right Popliteal Normal Yes Phasic Yes Right Posterior Tibial Normal Yes Phasic Yes Right Peroneal Normal Yes Phasic Yes Right Saphenofemoral [place] Normal Yes Phasic Yes Right Great Saphenous Normal Yes Phasic Yes Right Lesser Saphenous Normal Yes Phasic Yes Left Distal Iliac Normal Yes Phasic Yes Left Common Femoral Normal Yes Phasic Yes Left Superficial Femoral Normal Yes Phasic Yes Left Popliteal Normal Yes Phasic Yes Left Posterior Tibial Normal Yes Phasic Yes Left Peroneal Normal Yes Phasic Yes Left Saphenofemoral [place] Normal Yes Phasic Yes Left Great Saphenous Normal Yes Phasic Yes Left Lesser Saphenous Normal Yes Phasic Yes Updated by Elliott Hernandez MD, FACS on 04/20/2016 1:16:46 PM Elliott Hernandez MD electronically signed on 04/20/2016 1:17:27 PM with status of Final
--- NOTE | 2016-04-20 14:02 | Electrocardiograph Report ---
[place] [id number] Test Date: 2016-04-19 Pat Name: Kim Monet Department: 103 Room: [facility] Gender: F Investigation Officer: : 1980 Requested By: Hector Fisher Order Number: [id number] Reading MD: David Gross Measurements Intervals [place] Rate: 88 P: -1 UT: 162 QRS: 33 QRSD: 97 T: 40 QT: 362 QTc: 407 Interpretive Statements SINUS RHYTHM Electronically Signed On 04-20-2016 14:00:32 EST by David Gross
[2016-04-20] MEDS: *HR* OxyCODONE/APAP 10/325 TABLET PO PRN (19:42)
--- NOTE | 2016-04-20 20:19 | Internal Med Progress Note ---
Date of Encounter: 04/20/16 Time of Encounter: 11:00 - Assessment and plan (1) Lower extremity edema Current Visit: Yes Status: Chronic Assessment and plan: Etiology is and determine. Patient had swelling since Tuesday. With skin redness and warmth. Consider cellulitis, on vancomycin. Need to rule out cardiac, renal, or hepatic etiology. Patient is at high risk because she is on vancomycin, need close monitoring Qualifiers: Laterality: bilateral Qualified Code(s): R60.0 - Localized edema (2) Acute and chronic respiratory failure with hypoxia Current Visit: Yes Status: Acute Assessment and plan: Due to ILD and COPD, no signs of exacerbation. Will continue supportive treatment (3) CKD (chronic kidney disease) stage 3, GFR 30-59 ml/min Current Visit: Yes Status: Chronic Assessment and plan: Patient had CKD, creatinine at her baseline, will closely follow up renal function. (4) COPD (chronic obstructive pulmonary disease) Current Visit: Yes Status: Chronic Assessment and plan: Continue home medication and supportive treatment. Qualifiers: COPD type: unspecified COPD Qualified Code(s): J44.9 - Chronic obstructive pulmonary disease, unspecified (5) Interstitial lung disease Current Visit: Yes Status: Chronic Assessment and plan: Need oxygen all the time. We will continue supportive treatment. (6) DVT prophylaxis Current Visit: No Status: Acute Assessment and plan: Heparin subcutaneously - Subjective Interval history: Patient is a 35-year-old female admitted for bilateral leg swelling. Her past medical history is significant for ILD with high oxygen demand, COPD and GERD. Patient was seen and examined. She has no shortness of breath but need high- level oxygen to maintain oxygen saturation. Both leg swelling with skin redness and warmth. Vital signs stable. No DVT per US results. Echo pending but BNP is low. Mild elevated AST and ALP with low albumin level, will check hepatitis panel. Urine analysis shows as no urine protein. Patient was placed on diuretics and antibiotics for cellulitis. We will continue closely monitoring. - Constitutional Vitals: Temp Pulse Resp BP Pulse Ox 98.4 F 81 18 115/71 93 L 04/20/16 11:39 04/20/16 11:39 04/20/16 15:56 04/20/16 11:39 04/20/16 15:56 General appearance: Present: A&O X 3, no acute distress, answers questions appropriately - Head Head exam: Present: atraumatic, normocephalic - Eye Eye exam: Present: PERRL, conjuntiva pink, sclera anicteric Pupils: Present: PERRL - Neck Neck exam general surgery: Present: supple, trachea midline. Absent: lymphadenopathy - Respiratory Respiratory exam: Present: CTAB. Absent: accessory muscle use, rales, rhonchi, wheezes - Cardiovascular Cardiovascular exam: Present: RRR, +S1, +S2. Absent: diastolic murmur, gallop, rubs, systolic murmur - GI/Abdominal GI/Abdominal exam: Present: normal bowel sounds, soft, no peritoneal signs. Absent: distended, tenderness - Extremities Exam Extremities exam: Present: pedal edema (Bilaterally with skin warmth and redness , no open wound or discharge), warm, radial pulses palpable and symetrical. Absent: calf tenderness, cyanotic - Neurological Exam Neurological exam: Present: CN II-XII intact, oriented X3, no focal deficits. Absent: pronater drift, facial droop, speech deficit - Skin Skin exam: Present: dry, intact Internal Medicine: Result - Labs CBC & Chem 7: 04/19/16 19:44 04/20/16 01:59 Labs: BMP 04/20/16 01:59 Sodium 141 Potassium 3.4 L Chloride 100 Carbon Dioxide 31 H BUN 12 Creatinine 1.33 H Glucose 105 H Calcium 8.2 L Cardiac Enzymes 04/20/16 04/20/16 04/20/16 Range/Units 01:59 09:34 13:55 Troponin I 0.00 0.00 0.00 (0-0.03) ng/mL Liver Function 04/20/16 Range/Units 01:59 Total Bilirubin 0.2 (0.2-1.2) mg/dL AST 61 H (5-34) Units/L ALT 77 H (0-55) Units/L Alkaline Phosphatase 67 (38-126) Units/L Albumin 2.9 L (3.5-5.0) g/dL Urine 04/20/16 Range/Units 03:08 Urine Color Yellow (Yellow) Urine Clarity Clear (Clear) Urine pH 6.5 (5.0-8.0) pH Units Ur Specific [place] 1.007 L (1.010-1.025) Urine Protein Negative (Neg-Trace) mg/dL Urine Glucose (UA) Normal (Normal) mg/dL - ABG Interpretation ABG results: PT/INR, D-dimer PT 10.6 Seconds (9.4-12.1) 04/19/16 19:44 D-Dimer 1293 ng/mLFEU (0-500) H 04/19/16 19:44 - Impressions Impressions Chest CT 04/20/16 07:30 IMPRESSION: Focal fluid collection in right chest wall, presumably postoperative given history of thoracotomy. Correlate for any clinical signs of infection Scattered bandlike opacities throughout the lungs, likely atelectasis. Post wedge resection changes are noted Scattered cystic foci throughout the lungs, similar to prior. Findings are either due to underlying cystic lung disease or underlying emphysema. mildly enlarged mediastinal nodes, similar to prior D/ / Rubén Emanuel MD / Rubén Emanuel MD Interpreting Provider: Rubén Emanuel MD Consult Discharge Plan - Plan Referrals: Mervin Santiago MD [Primary Care Provider] - 04/28/16 9:45 am Ernestina Heard MD [Partnered Physician] - 04/22/16 2:20 pm
[2016-04-20] MEDS ORDERED: methylPREDNISolone 125 MG/2 ML VIAL IVP ONE (22:31)
[2016-04-20] MEDS: diazePAM 10 MG TABLET PO PRN (23:16)
[2016-04-20] MEDS: Vancomycin 1,750 MG in D5% in Water 500 ML IVPB SCH (23:58)
[2016-04-21] MEDS: Ipratropium/Albuterol Neb 3 ML IH SCH ×5 (00:02→23:17)
[2016-04-21] MEDS: *HR* OxyCODONE/APAP 10/325 TABLET PO PRN ×3 (02:26→20:55)
[2016-04-21 05:42] LABS: Basophils % 0.4 %; Eosinophils # 0.1 K/mcL (0.0-0.6); Eosinophils % 0.9 %; Hematocrit 33.3 % (35.3-44.9); Hemoglobin 10.7 g/dL (11.5-15.4); Immature Granulocytes % 0.3 % (0-4); Lymphocytes # 2.5 K/mcL (0.6-4.6); Lymphocytes % 24.6 %; Mean Corpuscular HGB Conc 32.1 g/dL (31.6-35.5); Mean Corpuscular Hemoglobin 29.1 pg (28.0-33.3); Mean Corpuscular Volume 90.5 fL (83.0-100.0); Mean Platelet Volume 8.8 fL (9.4-12.4); Monocytes # 0.5 K/mcL (0.0-1.3); Monocytes % 4.9 %; Platelet Count 193 K/mcL (140-400); Red Blood Count 3.68 M/mcL (3.82-4.97); Segmented Neutrophils % 68.9 %
[2016-04-21] MEDS: *HR* Heparin 5,000 UNIT/ML VIAL SQ SCH ×2 (05:43→17:26)
[2016-04-21 05:50] LABS: Alanine Aminotransferase 178 Units/L (0-55); Albumin 2.8 g/dL (3.5-5.0); Albumin/Globulin Ratio 0.8 (1.1-2.2); Alkaline Phosphatase 65 Units/L (38-126); Aspartate Amino Transferase 104 Units/L (5-34); BUN/Creatinine Ratio 14 (6-26); Bilirubin,Total 0.3 mg/dL (0.2-1.2); Blood Urea Nitrogen 17 mg/dL (7-20); Calcium 8.3 mg/dL (8.6-10.8); Carbon Dioxide 24 mEq/L (19-29); Chloride 100 mEq/L (98-109); Globulin 3.7 g/dL (2.4-3.5); Glucose 120 mg/dL (70-99); Osmolality,Calculated 285 (280-300); Potassium 3.4 mEq/L (3.5-4.5); Sodium 136 mEq/L (136-145); Total Protein 6.5 g/dL (6.0-8.3); eGFR For African Americans > 60 (> 60); eGFR For Non-African Americans 51 (> 60)
[2016-04-21] MEDS ORDERED: Fluconazole 100 MG TABLET PO SCH (09:00)
[2016-04-21] MEDS: ARIPiprazole 10 MG TABLET PO SCH (09:20)
[2016-04-21] MEDS: Nicotine 21 MG PATCH.TD24 TD SCH ×2 (09:21→09:28)
[2016-04-21] MEDS: Aspirin Enteric Coated 81 MG Tablet PO SCH (09:21)
[2016-04-21] MEDS: Baclofen 10 MG TABLET PO SCH ×3 (09:21→20:55)
[2016-04-21] MEDS: Nystatin SUSP 5 ML UD.LIQ PO SCH ×4 (09:22→20:55)
--- NOTE | 2016-04-21 09:40 | ECHO - Doppler Report ---
Echo with Saline Contrast Name: Kim Monet Date of Study: 04/20/2016 Date: 1980 Ht: 65.0 in Medical Record#: [id number] Age: 35 Wt: 263.0 lb Gender: Female BSA: 2.22 Order #: [id number] Location: [facility] Room #: [id number] Reading Physician: Gabby Kovacs DO Electrophysiology Technician: Kim Stanford Ordering Physician: Isaiah Hooker MD Primary Physician: Mervin Santiago MD Indications: Dyspnea, Hypoxia, Peripheral edema Impressions: Sinus rhythm and sinus tachycardia. LVEF 60%. Normal left ventricular size and systolic function. Indeterminate diastolic function. Normal right ventricular size and function. No significant valvular dysfunction. No pulmonary hypertension. PFO is present by saline contrast. Left Ventricular Wall Motion: Rest Echo Findings All wall segments showed normal motion. Findings: Study Quality * Technically adequate exam. ECG Findings * Normal sinus rhythm and sinus tachycardia. Left Ventricle * LVEF 60%. * Normal LV chamber size, wall thickness and function. * Indeterminate diastolic function. Mitral Valve * Normal mitral valve structure. * No mitral stenosis. * Trace mitral regurgitation. Aorta * Normally sized aortic root. Aortic Valve * No aortic regurgitation. * Aortic valve not well visualized. * No aortic stenosis. Tricuspid Valve * No tricuspid regurgitation. * Suboptimal Doppler interrogation. Pulmonic Valve * Pulmonic valve is not well visualized. * No pulmonic stenosis. * No pulmonic regurgitation. Pulmonary Artery * Pulmonary artery not well visualized. Right Ventricle * Normal right ventricular structure and function. Right Atrium * Normal right atrial size. Left Atrium * Moderately dilated left atrium. IVC * The IVC is not dilated. Interatrial Septum * There is a PFO by agitated saline contrast, Pericardium * There is no pericardial effusion present. History History of Smoking Years 20 Packs 1 Contrast: Agitated saline 20 ml. Measurements: BP: 115/ 71 2D Normal Values IVSd: 1.00 cm 0.6 - 1.0 cm LVIDd: 4.90 cm 3.7 - 5.6 cm LVPWd: 1.00 cm 0.6 - 1.1 cm LVIDs: 3.20 cm 1.5 - 3.6 cm AO: 2.90 cm < 4.0 cm LA: 4.20 cm 2.0 - 4.0cm %FS: 34.70 cm >25 % LA volume: 88 Mitral Valve Peak E:1.28 m/sec Peak A:.62 m/sec E/A Ratio:2.1 Peak E' Lat Gregor:13.9 cm/s Peak E' Med Gregor:18.8 cm/s E/E' Lat Ratio:9.3 E/E' Med Ratio:6.9 Tricuspid Valve TV Regurg Peak Grad: 10.00mmHg TV Regurg Peak Gregor: 1.57m/sec Updated by Gabby Kovacs on 04/21/2016 9:33:12 AM electronically signed on 04/21/2016 9:35:00 AM with status of Final Wall Motion [place]: 1=Normal, 2=Hypokinesis, 3=Akinesis, 4=Dyskinesis, 5=Aneurysmal, 6=Hyperkinetic, X=Not Visualized (Blank)=Missing
[2016-04-21 10:54] LABS: Hepatitis A Antibody IgM Nonreactive (Nonreactive); Hepatitis B Core IgM Nonreactive (Nonreactive); Hepatitis B Surface Antigen Nonreactive (Nonreactive); Hepatitis C Virus Antibody Nonreactive (Nonreactive)
[2016-04-21] MEDS: diazePAM 10 MG TABLET PO PRN ×2 (11:48→16:07)
[2016-04-21] MEDS: Sennosides/Docusate Sodium TABLET PO SCH ×2 (11:48→20:55)
[2016-04-21] MEDS: Vancomycin 1,750 MG in D5% in Water 500 ML IVPB SCH (11:48)
--- NOTE | 2016-04-21 18:55 | Internal Med Progress Note ---
Date of Encounter: 04/21/16 Time of Encounter: 11:00 - Assessment and plan (1) Lower extremity edema Current Visit: Yes Status: Chronic Assessment and plan: Etiology is undetermine. Patient had swelling since Tuesday. With skin redness and warmth. Consider cellulitis, on vancomycin. Need to rule out cardiac, renal, or hepatic etiology. Patient is at high risk because she is on vancomycin, need close monitoring Qualifiers: Laterality: bilateral Qualified Code(s): R60.0 - Localized edema (2) Acute and chronic respiratory failure with hypoxia Current Visit: Yes Status: Acute Assessment and plan: Due to ILD and COPD, no signs of exacerbation. Will continue supportive treatment (3) CKD (chronic kidney disease) stage 3, GFR 30-59 ml/min Current Visit: Yes Status: Chronic Assessment and plan: Patient had CKD, creatinine at her baseline, will closely follow up renal function. (4) COPD (chronic obstructive pulmonary disease) Current Visit: Yes Status: Chronic Assessment and plan: Continue home medication and supportive treatment. Qualifiers: COPD type: unspecified COPD Qualified Code(s): J44.9 - Chronic obstructive pulmonary disease, unspecified (5) Interstitial lung disease Current Visit: Yes Status: Chronic Assessment and plan: Need oxygen all the time. We will continue supportive treatment. (6) DVT prophylaxis Current Visit: No Status: Acute Assessment and plan: Heparin subcutaneously (7) Elevated liver enzymes Current Visit: Yes Status: Acute Assessment and plan: Hepatitis panel negative. We will discontinue fluconazole. Avoid hepatic toxic medications. Follow-up liver function - Time Spent With Patient Greater than 35 minutes - Subjective Interval history: Patient is a 35-year-old female admitted for bilateral leg swelling. Her past medical history is significant for ILD with high oxygen demand, COPD and GERD. Patient was seen and examined. She has no shortness of breath but need high- level oxygen to maintain oxygen saturation. Both leg swelling with skin redness and warmth, improved today. Vital signs stable. No DVT per US results. BNP is low, Echo results unremarkable. Continue elevated AST and ALP possibly due to fluconazole use, which is discontinued today. Hepatitis panel negative. Liver US Unremarkable Urine analysis shows as no urine protein. Patient was placed on diuretics and antibiotics for cellulitis. We will continue closely monitoring. - Constitutional Vitals: Temp Pulse Resp BP Pulse Ox 98 F 84 16 121/73 90 L 04/21/16 15:39 04/21/16 15:39 04/21/16 16:28 04/21/16 15:39 04/21/16 16:28 General appearance: Present: A&O X 3, no acute distress, answers questions appropriately - Head Head exam: Present: atraumatic, normocephalic - Eye Eye exam: Present: PERRL, conjuntiva pink, sclera anicteric Pupils: Present: PERRL - Neck Neck exam general surgery: Present: supple, trachea midline. Absent: lymphadenopathy - Respiratory Respiratory exam: Present: CTAB. Absent: accessory muscle use, rales, rhonchi, wheezes - Cardiovascular Cardiovascular exam: Present: RRR, +S1, +S2. Absent: diastolic murmur, gallop, rubs, systolic murmur - GI/Abdominal GI/Abdominal exam: Present: normal bowel sounds, soft, no peritoneal signs. Absent: distended, tenderness - Extremities Exam Extremities exam: Present: pedal edema (Bilaterally), warm, radial pulses palpable and symetrical. Absent: calf tenderness, cyanotic - Neurological Exam Neurological exam: Present: CN II-XII intact, oriented X3, no focal deficits. Absent: pronater drift, facial droop, speech deficit - Skin Skin exam: Present: dry, intact Internal Medicine: Result - Labs CBC & Chem 7: 04/21/16 05:20 04/21/16 05:20 Labs: Short CBC 04/21/16 Range/Units 05:20 WBC 10.2 (4.3-11.1) K/mcL Hgb 10.7 L (11.5-15.4) g/dL Hct 33.3 L (35.3-44.9) % Plt Count 193 (140-400) K/mcL Neutrophils # 7.0 (1.6-8.9) K/mcL BMP 04/21/16 05:20 Sodium 136 Potassium 3.4 L Chloride 100 Carbon Dioxide 24 BUN 17 Creatinine 1.19 H Glucose 120 H Calcium 8.3 L Liver Function 04/21/16 Range/Units 05:20 Total Bilirubin 0.3 (0.2-1.2) mg/dL AST 104 H (5-34) Units/L ALT 178 H (0-55) Units/L Alkaline Phosphatase 65 (38-126) Units/L Albumin 2.8 L (3.5-5.0) g/dL - ABG Interpretation ABG results: PT/INR, D-dimer PT 10.6 Seconds (9.4-12.1) 04/19/16 19:44 D-Dimer 1293 ng/mLFEU (0-500) H 04/19/16 19:44 - Impressions Impressions Abdomen Ultrasound 04/21/16 16:30 IMPRESSION: Unremarkable right upper quadrant ultrasound. D/ / Elliott Rodríguez MD / Elliott Rodríguez MD Interpreting Provider: Elliott Rodríguez MD Consult Discharge Plan - Plan Referrals: Mervin Santiago MD [Primary Care Provider] - 04/28/16 9:45 am Ernestina Heard MD [Partnered Physician] - 04/22/16 2:20 pm
[2016-04-21] MEDS: Furosemide 20 MG TABLET PO SCH (20:55)
[2016-04-22] MEDS: Vancomycin 1,750 MG in D5% in Water 500 ML IVPB SCH (00:28)
[2016-04-22] MEDS: Ipratropium/Albuterol Neb 3 ML IH SCH ×3 (04:20→16:05)
[2016-04-22] MEDS: *HR* Heparin 5,000 UNIT/ML VIAL SQ SCH (05:34)
[2016-04-22 06:51] LABS: Basophils # 0.1 K/mcL (0.0-0.2); Basophils % 0.7 %; Eosinophils # 0.4 K/mcL (0.0-0.6); Eosinophils % 5.8 %; Hematocrit 35.8 % (35.3-44.9); Hemoglobin 11.3 g/dL (11.5-15.4); Immature Granulocytes % 0.3 % (0-4); Lymphocytes # 3.8 K/mcL (0.6-4.6); Lymphocytes % 49.9 %; Mean Corpuscular HGB Conc 31.6 g/dL (31.6-35.5); Mean Corpuscular Hemoglobin 28.6 pg (28.0-33.3); Mean Corpuscular Volume 90.6 fL (83.0-100.0); Mean Platelet Volume 8.8 fL (9.4-12.4); Monocytes # 0.4 K/mcL (0.0-1.3); Monocytes % 5.4 %; Neutrophils # 2.9 K/mcL (1.6-8.9); Platelet Count 205 K/mcL (140-400); Red Blood Count 3.95 M/mcL (3.82-4.97); Red Cell Distribution Width 15.1 % (11.5-14.5); Segmented Neutrophils % 37.9 %
[2016-04-22 07:05] LABS: Calcium 8.9 mg/dL (8.6-10.8); Potassium 3.9 mEq/L (3.5-4.5)
[2016-04-22] MEDS: Nystatin SUSP 5 ML UD.LIQ PO SCH (10:30)
[2016-04-22] MEDS: ARIPiprazole 10 MG TABLET PO SCH (10:30)
[2016-04-22] MEDS: Sennosides/Docusate Sodium TABLET PO SCH (10:30)
[2016-04-22] MEDS: Aspirin Enteric Coated 81 MG Tablet PO SCH (10:31)
[2016-04-22] MEDS: Furosemide 20 MG TABLET PO SCH (10:31)
[2016-04-22] MEDS: Baclofen 10 MG TABLET PO SCH (10:32)
[2016-04-22] MEDS: *HR* OxyCODONE/APAP 10/325 TABLET PO PRN (10:37)
[2016-04-22 11:16] VITALS: BP 116/80
--- NOTE | 2016-04-22 13:08 | Discharge Summary ---
Date of Encounter: 04/22/16 Time of Encounter: 12:00 - Discharge Diagnosis (1) Lower extremity edema Priority: Primary Status: Chronic Qualifiers: Laterality: bilateral Qualified Code(s): R60.0 - Localized edema (2) Acute and chronic respiratory failure with hypoxia Priority: Secondary Status: Acute (3) CKD (chronic kidney disease) stage 3, GFR 30-59 ml/min Priority: Secondary Status: Chronic (4) COPD (chronic obstructive pulmonary disease) Priority: Secondary Status: Chronic Qualifiers: COPD type: unspecified COPD Qualified Code(s): J44.9 - Chronic obstructive pulmonary disease, unspecified (5) Interstitial lung disease Priority: Secondary Status: Chronic (6) DVT prophylaxis Priority: Secondary Status: Acute (7) Elevated liver enzymes Priority: Secondary Status: Acute - Discharge Medications Prescriptions: OxyCODONE/APAP 10/325 [Percocet 10/325 MG] 1 each PO Q6HR PRN #30 tablet PRN Reason: Pain Home Medications: Albuterol Sulfate [Albuterol Inhaler] 2 puff IH Q4HR PRN 10/01/14 [History] Aripiprazole [Abilify] 30 mg PO DAILY 10/01/14 [History] Diazepam [Valium] 10 mg PO QID PRN 10/01/14 [History] Duloxetine [Cymbalta] 120 mg PO DAILY 10/01/14 [History] Esomeprazole Magnesium [Nexium] 40 mg PO DAILY 10/01/14 [History] Fluticasone/Salmeterol [Advair 500-50 Diskus] 1 puff IH BID 10/01/14 [History] Naproxen [Naprosyn] 500 mg PO BID 5 Days 09/04/15 [Rx] Ipratropium/Albuterol Neb [Duoneb] 3 ml IH Q6HR PRN 02/03/16 [History] Oxygen 4 l NS CONT 02/03/16 [History] Tiotropium Allen [Spiriva Respimat] 2 puff IH DAILY 02/03/16 [History] Baclofen [Lioresal] 10 mg PO TID 04/19/16 [History] Furosemide [Lasix] 40 mg PO DAILY 04/19/16 [History] Clindamycin [Cleocin] 150 mg PO Q6HR #20 capsule 04/22/16 [Rx] OxyCODONE/APAP 10/325 [Percocet 10/325 MG] 1 each PO Q6HR PRN #30 tablet [Rx] Allergies/Adverse Reactions: Allergies Cefaclor Allergy (Verified 04/19/16 15:06) Rash Asenapine [From Saphris] Adverse Reaction (Verified 04/19/16 15:06) See Comments patient states symptoms worsen lamotrigine [From Lamictal] Adverse Reaction (Verified 04/19/16 15:06) Migraine lurasidone [From Latuda] Adverse Reaction (Verified 04/19/16 15:06) See Comments patient states symptoms worsen Procedures/tests Complete & Pending: Procedures Performed prior 72 hours Category Date Time Status CT chest w/o contrast [CT chest wo con] [CT] Routine Cat Scan 04/20/16 07:30 Completed US abdomen limited [US] Routine Exams 04/21/16 16:30 Completed EV echocardiogram Stat Y 04/20/16 22:35 Completed - Notes to Outpatient Provider Patient has mild elevated AST and ALT (AST 100, ALT 191). her fluconazole has been held. Please follow-up liver function as outpatient. Date of admission: 04/19/16 21:49 Primary care physician: Mervin Santiago MD Consults: 04/19/16 22:23 Consult to Nurse Navigator [CONS] Routine Comment: Consult to Nurse Navigator [CONS] Routine Comment: Discharging clinician: Hima Cavazos Anticipated date of discharge: 04/22/16 - Patient Status Disposition: Home, Self-Care Condition: Good Functional capacity at discharge: uses cane/walker Overall status at discharge: patient is progressing back to baseline - Discharge Instructions Follow Up With: Mervin Santiago MD [Primary Care Provider] - 04/28/16 9:45 am Ernestina Heard MD [Partnered Physician] - 04/22/16 2:20 pm - Diet and Activity Activity: increase activity as tolerated Interval History: 35-year-old female history of interstitial lung disease on 4 L home oxygenation and current pack per day smoker presents to the ED with bilateral leg swelling and difficulty in swallowing. She was previously admitted and had a thoracotomy performed to the right chest to diagnose her interstitial lung disease. This was performed 03/30. Since then she reports the past 10 days she has had increase swelling to bilateral legs now up to the mid thigh. She takes 40 mg Lasix without much improvement. Her glass bulb silverer is Dr. Morrissey, next scheduled appointment in May. She is also experiencing right-sided chest pain near the incision site as well as the anterior chest wall. Worse with deep inhalation. She has baseline dyspnea that does not appear worse than usual. Patient denies any recent fever, cough, hemoptysis, bloody stools, recent long-distance travel. Denies any history of blood clots. Denies any active cancer or estrogen use. She is taking Diflucan for her oral trush since discharge from hospital. Patient was discharged on 04/10. Painful swallowing especially with solid foods. Denies choking but she has been having congestion and rhinorrhea. Hospital course: Ms. Monet is a 35 year old female admitted for bilateral leg edema. She was treated as cellulitis with vancomycin. THE US LEG HAVE BEEN DONE, negative to DVT. Echo was done, result unremarkable. Patient had no proteinuria. Hepatitis panel negative. After treatment, her leg swelling and redness has improved. She will discharge home with by mouth antibiotics. I saw and examined patient today. She is awake alert, oriented 3. Vitals are stable. Mild elevated liver enzyme, stable with yesterday, which can be followed up as outpatient. Patient was educated to follow up with PCP for her liver function. She is stable to discharge home. Patient has ILD need home oxygen, which she has already. Time spent discussing smoking cessation with patient: 3 to 10 minutes - Time Spent with Patient Total time spent providing and/or coordinating discharge services: 40 minutes Greater than 30 minutes - Constitutional Vitals: Temp Pulse Resp BP Pulse Ox 98.2 F 91 16 116/80 93 L 04/22/16 11:09 04/22/16 11:09 04/22/16 11:51 04/22/16 11:04/22/16 11:51 General appearance: Present: A&O X 3, no acute distress, answers questions appropriately - Head Head exam: Present: atraumatic, normocephalic - Eye Eye exam: Present: PERRL, conjuntiva pink, sclera anicteric Pupils: Present: PERRL - Neck Neck exam general surgery: Present: supple, trachea midline. Absent: lymphadenopathy - Respiratory Respiratory exam: Present: CTAB. Absent: accessory muscle use, rales, rhonchi, wheezes - Cardiovascular Cardiovascular exam: Present: RRR, +S1, +S2. Absent: diastolic murmur, gallop, rubs, systolic murmur - GI/Abdominal GI/Abdominal exam: Present: normal bowel sounds, soft, no peritoneal signs. Absent: distended, tenderness - Extremities Exam Extremities exam: Present: warm, radial pulses palpable and symetrical. Absent : calf tenderness, cyanotic, pedal edema - Neurological Exam Neurological exam: Present: CN II-XII intact, oriented X3, no focal deficits. Absent: pronater drift, facial droop, speech deficit - Skin Skin exam: Present: dry, intact
[2016-04-22] MEDS ORDERED: Aminoglycoside Consult 1 EACH MC ONE (15:59)
== END 2016-04-22 16:00 | disposition home or self-care (01) ==
LOC: EMEROO 14:39 → 2NENU 14:39 → SUATTDRO 21:49 → 2NENU 23:00
PROVIDERS: ADMIT Family Medicine; ATTEND Internal Medicine

== ENCOUNTER 2016-05-15 20:46 | Observation (INO) ==
--- NOTE | 2016-05-15 21:20 | Emergency Department Note ---
Disposition Clinical Impression: Interstitial lung disease, SIRS (systemic inflammatory response syndrome), Seroma, Status post thoracotomy Dyspnea Qualifiers: Dyspnea type: unspecified Qualified Code(s): R06.00 - Dyspnea, unspecified Chest pain Qualifiers: Chest pain type: unspecified Qualified Code(s): R07.9 - Chest pain, unspecified Disposition: Admitted As Inpatient Condition: Good Time of Disposition: 01:35 General Adult HPI - General Chief complaint: ED Shortness of Breath/Dyspnea Stated complaint: JANINE, weakness Time Seen by Provider: 05/15/16 20:56 Source: patient Mode of arrival: ambulatory Limitations: no limitations Nursing Notes Reviewed: Yes Vital Signs Reviewed: Yes - History of Present Illness HPI Narrative: 35-year-old female history of interstitial lung disease on 4 L home oxygenation s/p right thoracotomy, COPD, and current pack per day smoker presents to the ED with chest pain and difficulty in breathing. Patient reports pain in the left chest wall which felt like a crinkling tingling sensation that lasted only a few seconds. Denies any associated diaphoresis, shortness of breath, nausea or vomiting. No radiation of the pain. This occurred at 1999 today. She also reports persistent difficulty breathing slightly worse today this morning. Recent thoracotomy performed in March as well as a prior admission one month ago. She is scheduled to follow with her associate sales manager Dr. Morrissey May 25 and her cardiothoracic surgeon Dr. Heard next Tuesday. Denies any recent illness, fever, cough, bloody stool or recent long distance travel. Denies a history of blood clots. Denies any history of active cancer or estrogen use. No recent steroid use. Denies history of cardiac ischemic disease. Denies cardiac family history. Pain Scale: 6 - Related Data Home Medications Medication Instructions Recorded Confirmed Albuterol Sulfate [Albuterol 2 puff IH Q4HR PRN 10/01/14 04/19/16 Inhaler] Aripiprazole [Abilify] 30 mg PO DAILY 10/01/14 04/19/16 Diazepam [Valium] 10 mg PO QID PRN 10/01/14 04/19/16 Duloxetine [Cymbalta] 120 mg PO DAILY 10/01/14 04/19/16 Esomeprazole Magnesium [Nexium] 40 mg PO DAILY 10/01/14 04/19/16 Fluticasone/Salmeterol [Advair 1 puff IH BID 10/01/14 04/19/16 500-50 Diskus] Ipratropium/Albuterol Neb [Duoneb] 3 ml IH Q6HR PRN 02/03/16 04/19/16 Oxygen 4 l NS CONT 02/03/16 04/19/16 Tiotropium Sealy [Spiriva 2 puff IH DAILY 02/03/16 04/19/16 Respimat] Baclofen [Lioresal] 10 mg PO TID 04/19/16 04/19/16 Furosemide [Lasix] 40 mg PO DAILY 04/19/16 04/19/16 Previous Rx's Medication Instructions Recorded Naproxen [Naprosyn] 500 mg PO BID 5 Days 09/04/15 Clindamycin [Cleocin] 150 mg PO Q6HR #20 capsule 04/22/16 OxyCODONE/APAP 10/325 [Percocet 1 each PO Q6HR PRN #30 tablet 04/22/16 10/325 MG] Allergies Allergy/AdvReac Type Severity Reaction Status Date / Time Cefaclor Allergy Rash Verified 04/19/16 15:06 Asenapine [From Saphris] AdvReac See Verified 04/19/16 15:06 Comments lamotrigine [From Lamictal] AdvReac Migraine Verified 04/19/16 15:06 lurasidone [From Latuda] AdvReac See Verified 04/19/16 15:06 Comments All systems ED: reviewed and negative except as stated. Constitutional: Denies: fever, chills Cardiovascular: Reports: chest pain, dyspnea on exertion. Denies: palpitations Respiratory: Reports: dyspnea. Denies: wheezes, hemoptysis Gastrointestinal: Denies: abdominal pain, nausea, vomiting, diarrhea Genitourinary: Denies: urgency, dysuria Musculoskeletal: Denies: back pain Integumentary: Denies: rash, abrasion Past Medical History - Past Medical History Attestation: Yes The following information was validated with the patient. Source: patient Medical history: Reports: arthritis, COPD, GERD, migraine, osteoporosis, other Surgical history: Reports: other (Bronchoscopy. Right lung biopsy s/p thoracotomy s/p chest-tube placement/removal. Colectomy adenoidectomy. EGD. Laparoscopic tubal ligation. Coagulation with bipolar cautery. LEEP conization. 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: polycystic ovary syndrome, bilateral tubal ligation - Social History Smoking Status: Heavy tobacco smoker Smokeless Tobacco Status: No Alcohol use: Reports: occasionally Drug use: Reports: marijuana, other Physical Exam - General Limitations: no limitations General appearance: alert, in no apparent distress, obese - Head Head exam: atraumatic, normocephalic, normal inspection - Eye Eye exam: Present: normal appearance, PERRL, EOMI - ENT ENT exam: normal exam, normal oropharynx, mucous membranes moist - Neck Neck exam: Present: normal inspection, full ROM, trachea midline - Chest Chest inspection: Present: normal inspection, symmetric chest wall rise, other ( right thoracotomy scar on lateral chest wall). Absent: tenderness - Respiratory Respiratory exam: Present: other (Course bilaterally). Absent: respiratory distress, wheezes - Cardiovascular Cardiovascular exam: Present: regular rate, normal rhythm, normal heart sounds - Abdominal Exam Abdominal exam: Present: soft, Non-Tender, normal bowel sounds. Absent: tenderness, distention, guarding, rebound, rigidity - Extremities Exam Extremities exam: Present: normal inspection, full ROM, normal capillary refill , pedal edema (bilateral). Absent: tenderness, calf tenderness - Back Exam Back exam: Present: normal inspection, full ROM. Absent: tenderness - Neurological Exam Neurological exam: Present: alert, oriented X3, normal gait - Psychiatric Psychiatric exam: Present: normal affect, normal mood - Skin Skin exam: Present: warm, dry, intact, normal color Course Course Narrative: 35-year-old female Sandra of interstitial lung disease on home oxygenation presents the ED for difficulty breathing and chest pain. Reports difficulty breathing worse today in episode of chest pain in the left chest wall. No history of cardiac ischemic disease. Patients tachycardic on arrival. She is afebrile. Peers in no acute distress. Normal worker breathing. Lungs a course bilaterally without any wheezing. Heart is regular rate and rhythm. She is not had any tenderness along the left chest wall there is still some mild tenderness along her scar on the right from the core thoracotomy. She has some bilateral lower extremity swelling. Concern for possible ACS will chest pain workup and indeed dimer. She denies any history of blood clots. EKG reveals sinus tachycardia 112 bpm no acute ischemic changes. Disposition pending results. Patient is in agreement with plan. - Reevaluation(s) Reevaluation #1: She has a leukocytosis 20.4 and has nearly tripled since last month. She does not take any steroids. She is tachycardic and now meets SIRS criteria, sepsis workup initiated with lactate, blood cultures. Will fluid resuscitate up 30 mL per kg fluid but with her lung disease and pedal edema will cautiously give fluids. Will start on Levaquin, Vanc, and Zosyn. CXR reveals bilateral opacities , stable from last image. Her D-dimer is elevated 830. We will get its CTA of the chest to rule out PE. Patient is in agreement with plan. Time: 22:24 Reevaluation #2: CT chest does not reveal any acute pulmonary embolism. She has a seroma in the right chest wall that an abscess cannot be excluded. This may be the likely source of her leukocytosis as her urine is not consistent with infection. Will admit patient for SIRS with possible lung abscess from seroma vs. HCAP as well as chest pain, status post thoracotomy. Patient is in agreement with plan. Chest X-Ray 05/15/16 20:56 IMPRESSION: Bibasilar opacities, unchanged since previous exam. D/ / Aleida Bowman MD / Aleida Bowman MD Interpreting Provider: Aleida Bowman MD Chest CTA 05/15/16 22:23 IMPRESSION: 1. No definite scan evidence for pulmonary embolus. 2. Decreased size of the right chest wall fluid collection, presumably a postoperative seroma. Abscess cannot be entirely excluded. D/ / Checo Doshi MD / Checo Doshi MD Interpreting Provider: Checo Doshi MD Time: 00:59 - Consultations Consultation #1: Spoke with on-call hospitalist kenton Martines to admit for SIRS possible HCAP versus abscess and chest pain. Her CT surgeon is Dr. Heard and concern of possible abscess in right chest wall from prior thoracotomy. No further orders at this time Time: 01:22 Vital Signs Temperature 97.6 F 05/15/16 20:50 Pulse Rate 118 05/15/16 20:50 Respiratory Rate 20 05/15/16 20:50 Blood Pressure 142/76 05/15/16 20:50 O2 Sat by Pulse Oximetry 94 05/15/16 20:50 Temperature 97.6 F 05/15/16 20:50 Pulse Rate 79 05/16/16 00:45 Respiratory Rate 18 05/16/16 01:44 Blood Pressure 119/70 05/16/16 01:44 O2 Sat by Pulse Oximetry 96 05/16/16 00:45 Oxygen Delivery Oxygen Delivery Nasal Cannula Medical Decision Making - MDM Narrative Medical decision making narrative: I examined this patient and my medical decision-making was reviewed with the OXYACETYLENE CUTTER/PA/Advanced Practice Nurse/Resident Physician. I agree with the documented findings, disposition and treatment plan as described except to the extent set forth below. Patient presents today was seen by Dr. Fisher and myself , I agree with his evaluation and management plan, supervise care the patient's stay, the patient presents today with left-sided chest pain. No dyspnea. She says this lasted just briefly and was kind of a feeling of she says her crackle. No difficulty breathing here. She is a smoker and is being worked up for interstitial lung disease. Had a recent thoracotomy back in March. She has no cardiac disease that she is aware of. Will order a workup on her we cannot use PERC criteria to rule out PE so she will have a d-dimer added on. And then reassess. Something for pain. She is in agreement with this plan. Chest X-Ray 05/15/16 20:56 IMPRESSION: Bibasilar opacities, unchanged since previous exam. D/ / Aleida Bowman MD / Aleida Bowman MD Interpreting Provider: Aleida Bowman MD 2300 hrs.: Patient's CBC is back and her white count is elevated. With this area on her bibasilar opacities in her chest to make sure there is no pneumonia there and also that she does not have a PE since her d-dimer is elevated. She does meet SIRS criteria we started her on IV antibiotics per the sepsis protocol here and we will get a CT of her chest and then admit her. She is going to be signed out to the evening ER physician Dr. Dumas for further management and disposition critical care time exclusive separately billable procedures 35 minutes. - Medical Records Medical records reviewed: Yes I reviewed the patient's medical records. - Lab Data Lab results reviewed: Yes I reviewed the patient's lab results. Result diagrams: 05/15/16 21:54 05/15/16 21:54 Lab Results 05/15/16 05/15/16 05/15/16 Range/Units 21:54 21:54 21:54 WBC 20.4 H (4.3-11.1) K/mcL RBC 3.90 (3.82-4.97) M/mcL Hgb 11.3 L (11.5-15.4) g/dL Hct 35.2 L (35.3-44.9) % MCV 90.3 (83.0-100.0) fL MCH 29.0 (28.0-33.3) pg MCHC 32.1 (31.6-35.5) g/dL RDW 15.7 H (11.5-14.5) % Plt Count 270 (140-400) K/mcL MPV 9.1 L (9.4-12.4) fL Immature Gran % 0.4 (0-4) % Seg Neutrophils % 81.6 % Lymphocytes % 14.1 % Monocytes % 3.5 % Eosinophils % 0.2 % Basophils % 0.2 % Neutrophils # 16.6 H (1.6-8.9) K/mcL Lymphocytes # 2.9 (0.6-4.6) K/mcL Monocytes # 0.7 (0.0-1.3) K/mcL Eosinophils # 0.1 (0.0-0.6) K/mcL Basophils # 0.1 (0.0-0.2) K/mcL D-Dimer 839 H (0-500) ng/mLFEU Sodium 141 (136-145) mEq/L Potassium 3.7 (3.5-4.5) mEq/L Chloride 107 (98-109) mEq/L Carbon Dioxide 22 (19-29) mEq/L BUN 10 (7-20) mg/dL Creatinine 0.95 (0.57-1.11) mg/dL Est GFR ( Amer) > 60 (> 60) Est GFR (Non-Af Amer) > 60 (> 60) BUN/Creatinine Ratio 11 (6-26) Glucose 105 H (70-99) mg/dL Calculated Osmolality 291 (280-300) Lactic Acid (0.5-2.2) mmol/L Calcium 9.0 (8.6-10.8) mg/dL Troponin I (0-0.03) ng/mL B-Natriuretic Peptide (0-100) pg/mL Urine Color (Yellow) Urine Clarity (Clear) Urine pH (5.0-8.0) pH Units Ur Specific [place] (1.010-1.025) Urine Protein (Neg-Trace) mg/dL Urine Glucose (UA) (Normal) mg/dL Urine Ketones (Negative) mg/dL Urine Blood (Negative) Urine Nitrite (Negative) Urine Bilirubin (Negative) Urine Urobilinogen (Normal) mg/dL Ur Leukocyte Esterase (Negative) Ur Culture Indicated? (NO) 05/15/16 05/15/16 05/15/16 Range/Units 21:54 21:54 22:43 WBC (4.3-11.1) K/mcL RBC (3.82-4.97) M/mcL Hgb (11.5-15.4) g/dL Hct (35.3-44.9) % MCV (83.0-100.0) fL MCH (28.0-33.3) pg MCHC (31.6-35.5) g/dL RDW (11.5-14.5) % Plt Count (140-400) K/mcL MPV (9.4-12.4) fL Immature Gran % (0-4) % Seg Neutrophils % % Lymphocytes % % Monocytes % % Eosinophils % % Basophils % % Neutrophils # (1.6-8.9) K/mcL Lymphocytes # (0.6-4.6) K/mcL Monocytes # (0.0-1.3) K/mcL Eosinophils # (0.0-0.6) K/mcL Basophils # (0.0-0.2) K/mcL D-Dimer (0-500) ng/mLFEU Sodium (136-145) mEq/L Potassium (3.5-4.5) mEq/L Chloride (98-109) mEq/L Carbon Dioxide (19-29) mEq/L BUN (7-20) mg/dL Creatinine (0.57-1.11) mg/dL Est GFR ( Amer) (> 60) Est GFR (Non-Af Amer) (> 60) BUN/Creatinine Ratio (6-26) Glucose (70-99) mg/dL Calculated Osmolality (280-300) Lactic Acid 0.8 (0.5-2.2) mmol/L Calcium (8.6-10.8) mg/dL Troponin I 0.00 (0-0.03) ng/mL B-Natriuretic Peptide 18 (0-100) pg/mL Urine Color (Yellow) Urine Clarity (Clear) Urine pH (5.0-8.0) pH Units Ur Specific [place] (1.010-1.025) Urine Protein (Neg-Trace) mg/dL Urine Glucose (UA) (Normal) mg/dL Urine Ketones (Negative) mg/dL Urine Blood (Negative) Urine Nitrite (Negative) Urine Bilirubin (Negative) Urine Urobilinogen (Normal) mg/dL Ur Leukocyte Esterase (Negative) Ur Culture Indicated? (NO) 05/16/16 Range/Units 00:14 WBC (4.3-11.1) K/mcL RBC (3.82-4.97) M/mcL Hgb (11.5-15.4) g/dL Hct (35.3-44.9) % MCV (83.0-100.0) fL MCH (28.0-33.3) pg MCHC (31.6-35.5) g/dL RDW (11.5-14.5) % Plt Count (140-400) K/mcL MPV (9.4-12.4) fL Immature Gran % (0-4) % Seg Neutrophils % % Lymphocytes % % Monocytes % % Eosinophils % % Basophils % % Neutrophils # (1.6-8.9) K/mcL Lymphocytes # (0.6-4.6) K/mcL Monocytes # (0.0-1.3) K/mcL Eosinophils # (0.0-0.6) K/mcL Basophils # (0.0-0.2) K/mcL D-Dimer (0-500) ng/mLFEU Sodium (136-145) mEq/L Potassium (3.5-4.5) mEq/L Chloride (98-109) mEq/L Carbon Dioxide (19-29) mEq/L BUN (7-20) mg/dL Creatinine (0.57-1.11) mg/dL Est GFR ( Amer) (> 60) Est GFR (Non-Af Amer) (> 60) BUN/Creatinine Ratio (6-26) Glucose (70-99) mg/dL Calculated Osmolality (280-300) Lactic Acid (0.5-2.2) mmol/L Calcium (8.6-10.8) mg/dL Troponin I (0-0.03) ng/mL B-Natriuretic Peptide (0-100) pg/mL Urine Color Yellow (Yellow) Urine Clarity Clear (Clear) Urine pH 6.5 (5.0-8.0) pH Units Ur Specific [place] > 1.030 H (1.010-1.025) Urine Protein Negative (Neg-Trace) mg/dL Urine Glucose (UA) Normal (Normal) mg/dL Urine Ketones Negative (Negative) mg/dL Urine Blood Negative (Negative) Urine Nitrite Negative (Negative) Urine Bilirubin Negative (Negative) Urine Urobilinogen Normal (Normal) mg/dL Ur Leukocyte Esterase Negative (Negative) Ur Culture Indicated? NO (NO) - Radiology Data Radiology results reviewed: Yes I reviewed the patient's radiology results. Chest X-Ray 05/15/16 20:56 IMPRESSION: Bibasilar opacities, unchanged since previous exam. D/ / Aleida Bowman MD / Aleida Bowman MD Interpreting Provider: Aleida Bowman MD Chest CTA 05/15/16 22:23 IMPRESSION: 1. No definite scan evidence for pulmonary embolus. 2. Decreased size of the right chest wall fluid collection, presumably a postoperative seroma. Abscess cannot be entirely excluded. D/ / Checo Doshi MD / Checo Doshi MD Interpreting Provider: Checo Doshi MD - EKG Data EKG #1 EKG attestation: Yes I reviewed and interpreted this EKG. EKG results narrative: EKG performed 210 sinus tachycardia 112 bpm, good R-R wave progression, normal axis, there are no ST elevations or depressions, nonspecific T wave abnormalities likely from motion artifact. Intervals are within normal limits ND interval 148 QRS 93 QT QTC 281 347. Compared to old EKG performed 04/19/2016 shows consistent findings of normal sinus rhythm. No acute ischemic changes. Critical Care Time Critical Care Time: Yes Total Critical Care Time: 35 Attestation: Critical care performed: Time is exclusive of separately billable procedures. Time includes: direct patient care, patient reassessment, coordination of patient care, interpretation of data (laboratory data, radiology data, and respiratory data), review of patient's medical records, medical consultation and documentation of patient care. Procedures included in critical care time: Procedures excluded from critical care time: Attestation Statement - Attestation Attestation: I, Charles Dumas MD, personally performed a history and physical exam of the patient and discussed their management with the resident. I reviewed the resident's note and agree with the documented findings, medical decision making , and plan of care. As patient was signed out at shift change from Dr. Coats. Patient has a history of interstitial lung disease and had a biopsy or resection of the right lung about 2 months ago. She presents complaining of some increased shortness of breath. Patient was found to have a leukocytosis with WBC of 20. CT scan obtained and showed no evidence of pulmonary embolism. There was a fluid collection which appear to be a seroma from the previous surgery which is actually decreased in size. On examination patient is a well-developed obese female in no acute distress. She is alert and oriented 3. There is no cyanosis or diaphoresis. The sounds are decreased but equal bilaterally. No rales or wheezes noted. Heart regular. Abdomen soft with normal bowel sounds. The hospitalist, Dr. Blanco, was consulted and accepted admission of the patient.
[2016-05-15] MEDS ORDERED: Nitroglycerin 0.4 MG TAB.SUBL SL PRN (21:41)
[2016-05-15 22:02] LABS: Basophils # 0.1 K/mcL (0.0-0.2); Basophils % 0.2 %; Eosinophils # 0.1 K/mcL (0.0-0.6); Eosinophils % 0.2 %; Hematocrit 35.2 % (35.3-44.9); Hemoglobin 11.3 g/dL (11.5-15.4); Immature Granulocytes % 0.4 % (0-4); Lymphocytes # 2.9 K/mcL (0.6-4.6); Lymphocytes % 14.1 %; Mean Corpuscular HGB Conc 32.1 g/dL (31.6-35.5); Mean Corpuscular Volume 90.3 fL (83.0-100.0); Mean Platelet Volume 9.1 fL (9.4-12.4); Monocytes # 0.7 K/mcL (0.0-1.3); Monocytes % 3.5 %; Neutrophils # 16.6 K/mcL (1.6-8.9); Platelet Count 270 K/mcL (140-400); Red Cell Distribution Width 15.7 % (11.5-14.5); Segmented Neutrophils % 81.6 %
[2016-05-15 22:13] LABS: BUN/Creatinine Ratio 11 (6-26); Blood Urea Nitrogen 10 mg/dL (7-20); Carbon Dioxide 22 mEq/L (19-29); Chloride 107 mEq/L (98-109); Glucose 105 mg/dL (70-99); Osmolality,Calculated 291 (280-300); Potassium 3.7 mEq/L (3.5-4.5); Sodium 141 mEq/L (136-145); eGFR For African Americans > 60 (> 60); eGFR For Non-African Americans > 60 (> 60)
[2016-05-15] MEDS ORDERED: 0.9 % Sodium Chloride 1,000 ML IVC STA (22:22)
[2016-05-15] MEDS ORDERED: Vancomycin 1,750 MG in D5% in Water 500 ML IVPB ONE (22:34)
[2016-05-15] MEDS ORDERED: Levofloxacin 750 MG/150 ML 750 MG/150 ML BAG IVPB ONE (22:34)
[2016-05-15] MEDS ORDERED: Piperacillin/Tazobactam 3.375 GM in D5% in Water (Mini-Bag+) 100 ML IVPB ONE (22:34)
[2016-05-16 00:22] LABS: Bilirubin,Urine Negative (Negative); Blood,Urine Negative (Negative); Clarity,Urine Clear (Clear); Color,Urine Yellow (Yellow); Glucose,Urine (UA) Normal (Normal); Ketones,Urine Negative (Negative); Leukocyte Esterase,Urine Negative (Negative); Nitrite,Urine Negative (Negative); PH,Urine 6.5 pH Units (5.0-8.0); Protein,Urine Negative (Neg-Trace); Specific Gravity,Urine > 1.030 (1.010-1.025); Urobilinogen,Urine Normal (Normal)
--- NOTE | 2016-05-16 02:16 | Internal Med History&Physical ---
Date of Encounter: 05/16/16 Time of Encounter: 02:30 Assessment and Plan (1) Postoperative wound seroma Current visit: Yes Status: Chronic . (2) SIRS (systemic inflammatory response syndrome) Current visit: Yes Status: Acute . (3) Interstitial lung disease Current visit: Yes Status: Chronic . (4) Post-thoracotomy pain Current visit: Yes Status: Chronic . (5) Acute and chronic respiratory failure with hypoxia Current visit: Yes Status: Acute . (6) Atelectasis of both lungs Current visit: Yes Status: Chronic . (7) COPD (chronic obstructive pulmonary disease) Current visit: Yes Status: Acute . Qualifiers: COPD type: COPD with acute exacerbation Qualified Code(s): J44.1 - Chronic obstructive pulmonary disease with (acute) exacerbation (8) Heavy cigarette smoker (20-39 per day) Current visit: Yes Status: Chronic . (9) Bipolar 1 disorder Current visit: Yes Status: Chronic . (10) Acute chest wall pain Current visit: Yes Status: Acute . (11) Chest pain, rule out acute myocardial infarction Current visit: Yes Status: Acute . (12) Chest pain with low risk of acute coronary syndrome Current visit: Yes Status: Acute . (13) Dependence on continuous supplemental oxygen Current visit: Yes Status: Chronic . (14) Morbid obesity with BMI of 40.0-44.9, adult Current visit: Yes Status: Chronic . (15) Morbid (severe) obesity with alveolar hypoventilation Current visit: Yes Status: Chronic . (16) History of noncompliance with medical treatment Current visit: Yes Status: Acute . Internal Medicine - H&P: HPI Chief complaint: Difficulty breathing. Chest pain. Weakness. Admitted From: Emergency Dept Plans for Post Hospital Care: Home History of present illness: Ms. Monet is a 35 year old female with history significant for COPD/chronic interstitial lung disease/emphysema, chr hypoxic resp failure/continuous O2 dependent, RAD/asthma, GERD, major depression/JAYLEN-anxiety/bipolar disorder, degenerative osteoarthritis, osteopenia/vitamin D deficiency, chronic MSK/ postthoracotomy pain syndrome, CKD III, LEOLA, ?OKSANA?OHS, ?fibromyalgia/chr fatigue syndrome, PCOS/DUB, migraine/chronic headaches, morbid obesity, h/o polysubstance usage, nicotine dependency-addiction is admitted to [facility] when she presented with complaints of difficulty breathing, anterior chest pain with respiratory variation and generalized weakness. She was at her baseline health within hours of her presentation to the emergency department. She felt acutely ill. In Her words "woozie". Lightheaded and slightly confused disoriented. A very poorhistorian she essentially describing she had a sensation of presyncope standing in her home. The most significant part of the symptoms resolved spontaneously very quickly she just "did not quite feel right". Mccracken it best to present to the emergency department to be evaluated. The chest discomfort that began in the left chest wall which felt like a crunching tingling pressure- like sensation. This lasted only a few seconds. She also felt discomfort into the right upper back which related to the side of her recent thoracotomy. She continues to have postthoracotomy discomfort in that area but she acknowledges that it is gradually improving as time progresses. When she experienced the feeling of near-syncope with chest discomfort at night any associated diaphoresis or acute worsening of her respiratory difficulties. She denied any abdominal pain nausea vomiting. She denied any radiation of pain to neck and jaw head arms etc. Denies any recent illnesses hospitalizations or surgical interventions. Denies fevers chills or sweats. Denies some leading events. She has experienced a cough at times productive with thick yellowish sputum. Denies hemoptysis. Vital signs, patient afebrile with a temperature 97.6 pulse 79-118 respirations 18 1920 BP 119-142/70-76 O2 saturation 94-96% on 4 L per nasal cannula. CBC 20.4 hemoglobin 11.3 hematocrit 35.2. RDW 15.7. Platelets 270,000. Differential showed an increase in neutrophils. MPV 9.1. D-dimer elevated 839. Metabolic panel normal. BUN 10 creatinine 0.95. Glucose 105 osmolality 291. Calcium 9. Troponin 0.00. BNP 18. Lactic acid 0.8. Urinalysis negative. Chest x-ray showed bibasilar opacities. CTA of the chest stated no definite evidence for pulmonary embolus. Decreased size of right chest wall fluid collection seen. This presumably a postoperative seroma. Abscess cannot be entirely excluded by this study. No acute abnormality seen on the hard the pericardium or thoracic aorta. Central airways were patent with no evidence of pleural effusion or pneumothorax. Diffuse emphysema. Diffuse groundglass attenuation throughout both lungs. Gradually improving bilateral basilar atelectasis. Extensive staple line seen in the lateral right lung area stable. There was an interval decrease in the size of the right lateral chest wall fluid collection now at 4.5 x 8.4 cm. Versus 10.5 x 8.6 cm as noted 04/19/2016 study. EKG demonstrated sinus tachycardia at 122 bpm. No acute ischemic changes. Preliminary impression suggests some mild acute on chronic COPD exacerbation patient with long-standing tobacco addiction. Likely bronchitis-bronchiolitis exacerbation with possible development of basilar inflammatory infiltrates/ infectious infiltrates and productive cough. Likely consistent with an interstitial pneumonitis. Patient's chronic chest and right upper back pain complaints are nonspecific. Does not appear acutely toxic or ill. She does have a chronic overlay of general debility however. Systemic inflammatory response syndrome criteria are met at the time of admission. Workup and treatment will proceed comprehensively. The patient was visited and interviewed and examined. Cumulative laboratory and radiographic data base will be considered and discussed. Pertinent ancillary medical records including ECW and PCI documentation when available was reviewed and considered. Given the patient's presenting concerns, past medical history, clinical findings and symptoms, she is admitted at this time will undergo further evaluation and disposition. Orders were written as per Computerized physician repair order clerk system.......................................................................... .................... Consultative opinion will be sought as clinical circumstances justify. Pain management needs will be addressed. Laboratory/ radiographic data base will be updated as appropriate. Studies include: Cultures blood urine and sputum, ddimer, pt/inr, aptt, cardiac injury panel, BNP, metabolic and hematologic panel, magnesium, phosphorus, ionized calcium, thyroid panel, lipid profile, A1c, C-peptide, CRP, sedimentation rate, UA, respiratory infection profile, respiratory virus panel, blood gas, lactic acid, serologies, etc. Precautions: Aspiration, fall, delirium protocol/surveillance initiated. Telemetry with continuous hemodynamic monitoring and pulse oximetry initiated. Orthostatic vital signs Empiric antibiotic (HCAP) coverage: Intravenous Vancomycin, Zosyn and Levaquin pending culture data. Special studies: CT of the chest, chest x-ray, telemetry, EKG. Pulmonary toilet: Incentive spirometry, aerosol bronchodilator, mucolytic, antitussive, supplemental oxygen. Corticosteroid therapy. CPAP/BiPAP supplemental oxygen delivery. Aerosol Mucomyst therapy. Fluid and electrolyte repletion efforts will proceed. Careful attention to fluid balance and renal recovery will be emphasized. Avoidance of nephrotoxic exposure and adverse drug drug interaction in the setting of impaired renal function will be monitored closely. Acute coronary syndrome protocol/surveillance initiated. DVT and PUD prophylaxis initiated: PPI therapy, intermittent pneumatic cuffs. Subcutaneous heparin/Lovenox. Early ambulation will be encouraged. Immunization updates recommended. Influenza and pneumococcal vaccinations as part of ongoing preventative healthcare recommendations strongly recommended. Smoking cessation counseling briefly addressed. Patient accepts nicotine substitution during this admission.. Advanced care directive discussion briefly addressed. Patient does not declare any healthcare restrictions at this time. Cardiovascular risk appraisal and cardiovascular risk reduction efforts will be emphasized. Physical /occupational therapy consulted to evaluate patient's functional capacity and progressive mobility as circumstances permit. Patient would likely benefit from enrollment and outpatient cardiopulmonary rehabilitation program. Nutrition/dietary education counseling may be considered as circumstances justify. Outpatient medication schedules will be reviewed, confirmed and facilitated as appropriate. Reconciliation of home treatments including adjustments, substitutions and reintroduction into the treatment regimen will address necessary maintenance therapies for chronic pre-existing medical conditions. Plan of care has been reviewed and discussed in detail with the patient. Questions addressed. Hospital course dictated by clinical findings, treatment response and potential consultative interventions. Patient is a risk for further acute clinical decline due to her frailty, chief complaints and comorbid conditions. Condition is serious. Prognosis is guarded. CODE STATUS is full. Past Med Surg Social Fam HX - Past Medical History Source: old records reviewed Medical history: arthritis, asthma, COPD (Secondary polycythemia. Emphysema. Interstitial lung disease. Dependence on supplemental oxygenation.), fibromyalgia, GERD, migraine, osteoporosis (Vitamin D deficiency.), renal disease (stress urinary incontinence.), other (Chronic musculoskeletal pain- back pain syndrome. Post thoracotomy pain syndrome.) Psychiatric history: anxiety, bipolar, depression, other - Past Surgical History Surgical History: other (Bronchoscopy. Right lung biopsy s/p thoracotomy s/p chest-tube placement/removal. Colectomy adenoidectomy. EGD. Laparoscopic tubal ligation. Coagulation with bipolar cautery. LEEP conization. Condylomata removal and partial vulvectomy) - Social History Smoking Status: Heavy tobacco smoker Packs per day: 1ppd (h/o smoking up to 5ppd cigarette addiction) Smokeless Tobacco Status: No Alcohol use: occasionally Drug use: marijuana, other Occupational status: unemployed Current living situation: Home - Independent, Home Activity Level: Independent ambulation, Mostly sedentary Recent Out of Country Travel Within the Last 8 Weeks: No Exposure or Possible Exposure to Illness During Travel: No - Family History Mother Age: 64 Living Status: Still Living Hx Family Cardiac Disorders: Yes Hx Family Respiratory Disorders: No Hx Family Cancer: No Hx Family GI Disorders: Yes Hx Family Genitourinary Disorders: No Hx Family Endocrine Disorder: Yes Hx Family Musculoskeletal Disorders: No Hx Family Neuromuscular Disorders: No Hx Family Neurologic Disorders: Yes Hx Family HEENT Disorders: No Hx Family Autoimmune Disorders: No Hx Family Reproductive Disorders: No Hx Family Psychosocial Disorders: No Hx Family Medical Disorders: No Internal Medicine - H&P: Meds Albuterol Sulfate [Albuterol Inhaler] 2 puff IH Q4HR PRN 10/01/14 [History] Aripiprazole [Abilify] 30 mg PO DAILY 10/01/14 [History] Diazepam [Valium] 10 mg PO QID PRN 10/01/14 [History] Duloxetine [Cymbalta] 120 mg PO DAILY 10/01/14 [History] Fluticasone/Salmeterol [Advair 500-50 Diskus] 1 puff IH BID 10/01/14 [History] Naproxen [Naprosyn] 500 mg PO BID 5 Days 09/04/15 [Rx] Ipratropium/Albuterol Neb [Duoneb] 3 ml IH Q6HR PRN 02/03/16 [History] Oxygen 4 l NS CONT 02/03/16 [History] Tiotropium [place] [Spiriva Respimat] 2 puff IH DAILY 02/03/16 [History] Baclofen [Lioresal] 10 mg PO TID 04/19/16 [History] OxyCODONE/APAP 10/325 [Percocet 10/325 MG] 1 each PO Q6HR PRN #30 tablet [Rx] Allergies Cefaclor Allergy (Verified 04/19/16 15:06) Rash Asenapine [From Saphris] Adverse Reaction (Verified 04/19/16 15:06) See Comments patient states symptoms worsen lamotrigine [From Lamictal] Adverse Reaction (Verified 04/19/16 15:06) Migraine lurasidone [From Latuda] Adverse Reaction (Verified 04/19/16 15:06) See Comments patient states symptoms worsen All Systems PM: A 10-system review of systems was performed and is negative for pertinent findings except as documented above in the HPI. Allergies Allergy/AdvReac Type Severity Reaction Status Date / Time Cefaclor Allergy Rash Verified 04/19/16 15:06 Asenapine [From Saphris] AdvReac See Verified 04/19/16 15:06 Comments lamotrigine [From Lamictal] AdvReac Migraine Verified 04/19/16 15:06 lurasidone [From Latuda] AdvReac See Verified 04/19/16 15:06 Comments Patient Problems (Last Updated 05/16/16 @ 02:24 by Isaiah Hooker MD) MECHELLE (acute kidney injury) (Acute Medical) N17.9 Dyspnea (Acute Medical) R06.00 Hypoxia (Acute Medical) R09.02 Lower extremity edema (Chronic Medical) R60.0 Dependence on continuous supplemental oxygen (Chronic Medical) Z99.81 Acute kidney injury superimposed on CKD (Acute Medical) N17.9, N18.9 CKD (chronic kidney disease) stage 3, GFR 30-59 ml/min (Chronic Medical) N18.3 Hyponatremia with decreased serum osmolality (Acute Medical) E87.1 Metabolic alkalosis with respiratory acidosis (Acute Medical) E87.4 Morbid obesity with BMI of 40.0-44.9, adult (Chronic Medical) E66.01, Z68.41 Morbid (severe) obesity with alveolar hypoventilation (Chronic Medical) E66.2 Elevated liver enzymes (Acute Medical) R74.8 SIRS (systemic inflammatory response syndrome) (Acute Medical) R65.10 Seroma (Acute Medical) T14.8 Dyspnea (Acute Medical) R06.00 Chest pain (Acute Medical) R07.9 Status post thoracotomy (Acute Surgical) Z98.890 Interstitial lung disease (Chronic Medical) J84.9 Hypoxia (Acute Medical) R09.02 DVT prophylaxis (Acute Medical) Post-thoracotomy pain (Chronic Medical) G89.12 Leukocytosis (Acute Medical) D72.829 MECHELLE (acute kidney injury) (Acute Medical) N17.9 Hyperkalemia (Acute Medical) E87.5 Acute and chronic respiratory failure with hypoxia (Acute Medical) J96.21 Atelectasis of both lungs (Chronic Medical) J98.11 COPD (chronic obstructive pulmonary disease) (Acute Medical) J44.9 Postoperative seroma of musculoskeletal structure after musculoskeletal procedure (Acute Medical) M96.842 Postoperative seroma of subcutaneous tissue after non-dermatologic procedure ( Acute Medical) L76.34 Bipolar 1 disorder (Chronic Medical) F31.9 Heavy cigarette smoker (20-39 per day) (Chronic Social Hx) F17.210 Postoperative wound seroma (Chronic Medical) Acute exacerbation of chronic obstructive airways disease (Inactive Medical) Acute exacerbation of chronic obstructive airways disease (Inactive Medical) J44.1 Allergic reaction (Inactive Medical) T78.40XA Bronchitis (Inactive Medical) COPD (chronic obstructive pulmonary disease) (Inactive Medical) J44.9 Cervical sprain (Inactive Medical) S13.9XXA Lumbago (Inactive Medical) M54.5 Lumbar strain (Inactive Medical) S39.012A Possible exposure to STD (Inactive Medical) Shortness of breath (Inactive Medical) R06.02 Strain of shoulder, left (Inactive Medical) Strain, cervical (Inactive Medical) Thoracic back pain (Inactive Medical) M54.6 - Constitutional Constitutional: as per HPI, fatigue, malaise, other, no chills, no fever(s), no night sweats - EENT Eyes: as per HPI, no change in vision, no discharge, no pain, no photophobia Ears: as per HPI, no ear discharge, no ear pain, no tinnitus Nose, mouth and throat: as per HPI, no dysphagia, no nasal discharge, no neck pain, no sore throat - Cardiovascular Cardiovascular ROS IM: as per HPI, lightheadedness, other, no chest pain, no diaphoresis, no dyspnea, no palpitations, no syncope - Respiratory Respiratory: as per HPI, cough, dyspnea, dyspnea on exertion, wheezing, pain on inspiration, chest congestion, change in phlegm color, pain with cough, no hemoptysis, no excessive phlegm production - Gastrointestinal Gastrointestinal: as per HPI, no abdominal pain, no diarrhea, no hematemesis, no hematochezia, no melena, no nausea, no vomiting - Genitourinary Genitourinary: as per HPI, no change in urinary stream, no dysuria, no flank pain, no hematuria - Musculoskeletal Musculoskeletal ROS IM: as per HPI, back pain, myalgias, no numbness, no tingling - Integumentary Integumentary IM: as per HPI, other, no rash, no unusual bruising - Neurological Neurological ROS: as per HPI, confusion, disequilibrium, dizziness, weakness, no convulsions, no focal weakness, no numbness, no tingling, no tremor(s) - Psychiatric Psychiatric: as per HPI - Endocrine Endocrine IM: as per HPI - Hematologic/Lymphatic Hematologic/Lymphatic: as per HPI, no easy bruising - Allergic/Immunologic Allergic/Immunologic: as per HPI - Constitutional Vitals: Temp Pulse Resp BP Pulse Ox 97.8 F 74 16 127/81 97 05/16/16 02:09 05/16/16 02:09 05/16/16 02:09 05/16/16 02:09 05/16/16 02:09 Vital Signs Temp Pulse Resp BP Pulse Ox 05/16/16 02:09 97.8 F 74 16 127/81 97 05/16/16 01:44 18 119/70 05/16/16 00:45 79 18 130/73 96 05/15/16 22:41 104 18 121/77 93 05/15/16 22:30 95 18 129/76 95 05/15/16 21:05 95 05/15/16 20:50 97.6 F 118 20 142/76 94 Intake and Output 05/15/16 05/15/16 05/16/16 15:59 23:59 07:59 Intake Total 1100 / 1100 Output Total 0 / 0 Balance 1100 / 1100 Intake: IV Fluids 1100 / 1100 0.9 % Sodium Chloride 1, 1000 / 1000 000 ML @ 3750 mls/hr IVC .Q16M STA Rx#:[id number] Zosyn 3.375 GM In 100 / 100 Dextrose 5% (Minibag+) 100 ML 100 ML @ 100 mls/ hr IVPB ONCE ONE Rx#: [id number] Oral 0 / 0 Output: Urine 0 / 0 Other: Weight 113.398 kg 101.1 kg Patient Weight 05/16/16 23:59 Weight 101.1 kg General appearance: Present: cooperative, mild distress, A&O X 3, morbidly obese , answers questions appropriately - Head Head exam: Present: atraumatic, normocephalic - Eye Eye exam: Present: EOMI, PERRL, conjuntiva pink, sclera anicteric Pupils: Present: normal accommodation, PERRL - ENT ENT exam: Present: mucous membranes moist, normal oropharynx - Neck Neck exam general surgery: Present: full ROM, supple, trachea midline. Absent: lymphadenopathy, nuchal rigidity - Respiratory Respiratory exam: Present: chest wall tenderness, decreased breath sounds, prolonged expiratory phase. Absent: accessory muscle use, CTAB, rales, respiratory distress, rhonchi, stridor, wheezes, tachypnea - Cardiovascular Cardiovascular exam: Present: distant heart sounds, RRR, +S1, +S2. Absent: diastolic murmur, gallop, rubs, systolic murmur - GI/Abdominal GI/Abdominal exam: Present: normal bowel sounds, soft, no peritoneal signs. Absent: distended, tenderness - Extremities Exam Extremities exam: Present: full ROM, warm, radial pulses palpable and symetrical. Absent: calf tenderness, cyanotic, pedal edema - Back Exam Back exam: Present: CVA tenderness (R), tenderness (Focal postoperative defect right infrascapular area. Exquisite tenderness remains. No localized fluctuance or abscesses appreciated. No suspicion for a smoldering cellulitis.) . Absent: normal inspection - Neurological Exam Neurological exam: Present: alert, altered, CN II-XII intact, oriented X3, no focal deficits. Absent: pronater drift, facial droop, speech deficit - Expanded Neurological Exam Neurological exam expanded: Present: protecting the airway. Absent: ataxia, expressive aphasia, receptive aphasia, total aphasia Patient oriented to: Present: person, place, time Speech: Present: fluid speech Coma Scale Eye Opening: Spontaneous Coma Scale Motor Response: Obeys Commands Coma Scale Verbal Response: Oriented Coma Scale Total: 15 - Psychiatric Psychiatric exam: Present: normal affect, normal mood - Skin Skin exam: Present: dry, intact, warm Internal Med - H&P Results - Labs CBC & Chem 7: 05/15/16 21:54 05/15/16 21:54 Labs: Short CBC 05/15/16 Range/Units 21:54 WBC 20.4 H (4.3-11.1) K/mcL Hgb 11.3 L (11.5-15.4) g/dL Hct 35.2 L (35.3-44.9) % Plt Count 270 (140-400) K/mcL Neutrophils # 16.6 H (1.6-8.9) K/mcL BMP 05/15/16 Range/Units 21:54 Sodium 141 (136-145) mEq/L Potassium 3.7 (3.5-4.5) mEq/L Chloride 107 (98-109) mEq/L Carbon Dioxide 22 (19-29) mEq/L BUN 10 (7-20) mg/dL Creatinine 0.95 (0.57-1.11) mg/dL Glucose 105 H (70-99) mg/dL Calcium 9.0 (8.6-10.8) mg/dL Cardiac Enzymes 05/15/16 Range/Units 21:54 Troponin I 0.00 (0-0.03) ng/mL Urine 05/16/16 Range/Units 00:14 Urine Color Yellow (Yellow) Urine Clarity Clear (Clear) Urine pH 6.5 (5.0-8.0) pH Units Ur Specific [place] > 1.030 H (1.010-1.025) Urine Protein Negative (Neg-Trace) mg/dL Urine Glucose (UA) Normal (Normal) mg/dL Abnormal lab results WBC 20.4 K/mcL (4.3-11.1) H 05/15/16 21:54 Hgb 11.3 g/dL (11.5-15.4) L 05/15/16 21:54 Hct 35.2 % (35.3-44.9) L 05/15/16 21:54 RDW 15.7 % (11.5-14.5) H 05/15/16 21:54 MPV 9.1 fL (9.4-12.4) L 05/15/16 21:54 Neutrophils # 16.6 K/mcL (1.6-8.9) H 05/15/16 21:54 D-Dimer 839 ng/mLFEU (0-500) H 05/15/16 21:54 Glucose 105 mg/dL (70-99) H 05/15/16 21:54 Ur Specific [place] > 1.030 (1.010-1.025) H 05/16/16 00:14 Laboratory Last Values WBC 20.4 K/mcL (4.3-11.1) H 05/15/16 21:54 RBC 3.90 M/mcL (3.82-4.97) 05/15/16 21:54 Hgb 11.3 g/dL (11.5-15.4) L 05/15/16 21:54 Hct 35.2 % (35.3-44.9) L 05/15/16 21:54 MCV 90.3 fL (83.0-100.0) 05/15/16 21:54 MCH 29.0 pg (28.0-33.3) 05/15/16 21:54 MCHC 32.1 g/dL (31.6-35.5) 05/15/16 21:54 RDW 15.7 % (11.5-14.5) H 05/15/16 21:54 Plt Count 270 K/mcL (140-400) 05/15/16 21:54 MPV 9.1 fL (9.4-12.4) L 05/15/16 21:54 Immature Gran % 0.4 % (0-4) 05/15/16 21:54 Seg Neutrophils % 81.6 % 05/15/16 21:54 Lymphocytes % 14.1 % 05/15/16 21:54 Monocytes % 3.5 % 05/15/16 21:54 Eosinophils % 0.2 % 05/15/16 21:54 Basophils % 0.2 % 05/15/16 21:54 Neutrophils # 16.6 K/mcL (1.6-8.9) H 05/15/16 21:54 Lymphocytes # 2.9 K/mcL (0.6-4.6) 05/15/16 21:54 Monocytes # 0.7 K/mcL (0.0-1.3) 05/15/16 21:54 Eosinophils # 0.1 K/mcL (0.0-0.6) 05/15/16 21:54 Basophils # 0.1 K/mcL (0.0-0.2) 05/15/16 21:54 D-Dimer 839 ng/mLFEU (0-500) H 05/15/16 21:54 Sodium 141 mEq/L (136-145) 05/15/16 21:54 Potassium 3.7 mEq/L (3.5-4.5) 05/15/16 21:54 Chloride 107 mEq/L (98-109) 05/15/16 21:54 Carbon Dioxide 22 mEq/L (19-29) 05/15/16 21:54 BUN 10 mg/dL (7-20) 05/15/16 21:54 Creatinine 0.95 mg/dL (0.57-1.11) 05/15/16 21:54 Est GFR ( Amer) > 60 (> 60) 05/15/16 21:54 Est GFR (Non-Af Amer) > 60 (> 60) 05/15/16 21:54 BUN/Creatinine Ratio 11 (6-26) 05/15/16 21:54 Glucose 105 mg/dL (70-99) H 05/15/16 21:54 Calculated Osmolality 291 (280-300) 05/15/16 21:54 Lactic Acid 0.8 mmol/L (0.5-2.2) 05/15/16 22:43 Calcium 9.0 mg/dL (8.6-10.8) 05/15/16 21:54 Troponin I 0.00 ng/mL (0-0.03) 05/15/16 21:54 B-Natriuretic Peptide 18 pg/mL (0-100) 05/15/16 21:54 Urine Color Yellow (Yellow) 05/16/16 00:14 Urine Clarity Clear (Clear) 05/16/16 00:14 Urine pH 6.5 pH Units (5.0-8.0) 05/16/16 00:14 Ur Specific [place] > 1.030 (1.010-1.025) H 05/16/16 00:14 Urine Protein Negative mg/dL (Neg-Trace) 05/16/16 00:14 Urine Glucose (UA) Normal mg/dL (Normal) 05/16/16 00:14 Urine Ketones Negative mg/dL (Negative) 05/16/16 00:14 Urine Blood Negative (Negative) 05/16/16 00:14 Urine Nitrite Negative (Negative) 05/16/16 00:14 Urine Bilirubin Negative (Negative) 05/16/16 00:14 Urine Urobilinogen Normal mg/dL (Normal) 05/16/16 00:14 Ur Leukocyte Esterase Negative (Negative) 05/16/16 00:14 Ur Culture Indicated? NO (NO) 05/16/16 00:14 - Diagnostic Studies Other Images Additional comments: Chest X-Ray 05/15/16 20:56 IMPRESSION: Bibasilar opacities, unchanged since previous exam. D/ / Aleida Bowman MD / Aleida Bowman MD Interpreting Provider: Aleida Bowman MD Chest CTA 05/15/16 22:23 IMPRESSION: 1. No definite scan evidence for pulmonary embolus. 2. Decreased size of the right chest wall fluid collection, presumably a postoperative seroma. Abscess cannot be entirely excluded. D/ / Checo Doshi MD / Checo Doshi MD Interpreting Provider: Checo Doshi MD - Attending Attestation Allergies Cefaclor Allergy (Verified 04/19/16 15:06) Rash Asenapine [From Saphris] Adverse Reaction (Verified 04/19/16 15:06) See Comments patient states symptoms worsen lamotrigine [From Lamictal] Adverse Reaction (Verified 04/19/16 15:06) Migraine lurasidone [From Latuda] Adverse Reaction (Verified 04/19/16 15:06) See Comments patient states symptoms worsen Home Medications Medication Instructions Recorded Confirmed Type Albuterol Sulfate [Albuterol 2 puff IH Q4HR PRN 10/01/14 04/19/16 History Inhaler] Aripiprazole [Abilify] 30 mg PO DAILY 10/01/14 04/19/16 History Diazepam [Valium] 10 mg PO QID PRN 10/01/14 04/19/16 History Duloxetine [Cymbalta] 120 mg PO DAILY 10/01/14 04/19/16 History Esomeprazole Magnesium [Nexium] 40 mg PO DAILY 10/01/14 04/19/16 History Fluticasone/Salmeterol [Advair 1 puff IH BID 10/01/14 04/19/16 History 500-50 Diskus] Ipratropium/Albuterol Neb [Duoneb] 3 ml IH Q6HR PRN 02/03/16 04/19/16 History Oxygen 4 l NS CONT 02/03/16 04/19/16 History Tiotropium [place] [Spiriva 2 puff IH DAILY 02/03/16 04/19/16 History Respimat] Baclofen [Lioresal] 10 mg PO TID 04/19/16 04/19/16 History Furosemide [Lasix] 40 mg PO DAILY 04/19/16 04/19/16 History I & O 05/13/16 05/14/16 05/15/16 05/16/16 23:59 23:59 23:59 23:59 Intake Total 1100 / 1100 Output Total 0 / 0 Balance 1100 / 1100 Weight 113.398 kg 101.1 kg Intake: IV Fluids 1100 / 1100 0.9 % Sodium Chloride 1, 1000 / 1000 000 ML @ 3750 mls/hr IVC .Q16M STA Rx#:[id number] Zosyn 3.375 GM In 100 / 100 Dextrose 5% (Minibag+) 100 ML 100 ML @ 100 mls/ hr IVPB ONCE ONE Rx#: [id number] Oral 0 / 0 Output: Urine 0 / 0 Medications Nitroglycerin (Nitroglycerin) 0.4 mg SL Q5MIN PRN PRN Reason: Chest Pain Stop: 11/14/16 21:42 Last Admin: 05/15/16 22:39 Dose: 0.4 mg Discontinued Medications Sodium Chloride (0.9 % Sodium Chloride) 1,000 mls @ 3,750 mls/hr IVC .Q16M STA Stop: 05/15/16 22:37 Last Infusion: 05/16/16 00:41 Dose: 0 mls/hr Levofloxacin/Dextrose (Levaquin 750mg/150 Ml) 750 mg in 150 mls @ 100 mls/hr IVPB ONCE ONE PRN Reason: Protocol Stop: 05/16/16 00:03 Piperacillin Sod/Tazobactam (Sod 3.375 gm/ Dextrose) 100 mls @ 100 mls/hr IVPB ONCE ONE PRN Reason: Protocol Stop: 05/15/16 23:33 Last Infusion: 05/16/16 00:41 Dose: 0 mls/hr Vancomycin HCl 1,750 mg/ (Dextrose) 500 mls @ 334.014 mls/hr IVPB ONCE ONE PRN Reason: Protocol Stop: 05/16/16 00:03 Last Admin: 05/16/16 00:42 Dose: 334.014 mls/hr Orders 05/15/16 20:56 12 lead ECG assessment [RC] NOW Continuous pulse oximetry [RC] .ONCE Comment: Obtain Old EKG [RC] .ONCE RT has an order or consult [RC] NOW XR chest 1V portable [XR] Stat Mode Of Transportation: Portable Reason For Exam: chest pain Exam Performed At:: [facility] ECG 12 lead ECG [ECG] Stat Mode Of Transportation: Portable Reason For Exam: CHest pain Exam Performed At:: [facility] 05/15/16 21:20 Cardiac monitoring [RC] .ONCE Saline lock [RC] .ONCE Supplemental oxygen titration [RC] .ONCE Physician Instructions: Vital Signs Assessment [RC] PROTOCOL 05/15/16 21:41 Nitroglycerin 0.4 mg SL Q5MIN PRN 05/15/16 21:54 B-Type Natriuretic Peptide Stat Comment: Specimen: Send someone from the department to collect Basic Metabolic Panel Stat Comment: Specimen: Send someone from the department to collect Complete Blood Count [HEME] Stat Comment: Specimen: Send someone from the department to collect D-Dimer [COAG] Stat Comment: Specimen: Send someone from the department to collect Troponin I Stat Comment: Specimen: Send someone from the department to collect 05/15/16 22:22 IV insertion - peripheral [RC] NOW Insert second IV line [RC] .ONCE Urinalysis Reflex Cult & Micro [URIN] Stat Comment: Specimen: Send someone from the department to collect Source of specimen:: Not Supplied 0.9 % Sodium Chloride 1,000 ml IVC 3,750 mls/hr 05/15/16 22:23 CTA chest [CT angio chest] [CT] Stat Comment: Mode Of Transportation: Portable Reason For Exam: ELEVATED DDIMER, CHEST PAIN Order Doctor: Hector Fisher Exam Performed At:: [facility] Allergic to Contrast: No 05/15/16 22:34 Vital Signs Assessment [RC] PROTOCOL Levofloxacin 750 MG/150 ML [Levaquin 750mg/150 mL] 750 mg in 150 ml IVPB ONCE Piperacillin/Tazobactam [Zosyn] 3.375 gm D5% in Water (Mini-Bag+) [Dextrose 5 % (Minibag+) 100 ML] 100 ml IVPB ONCE Vancomycin [Vancocin] 1,750 mg D5% in Water [Dextrose 5%] 500 ml IVPB ONCE 05/15/16 22:43 Culture,Blood,Additional [BC] Stat Comment: CECILIO Source: Peripheral Venipuncture Quantity: 1 Specimen: Send someone from the department to collect Specimen Description: Lactic Acid ([facility] Only) Stat Comment: Specimen: Send someone from the department to collect 05/16/16 00:[address] Stat Comment: Reason for Visit: SIRS, SEROMA POSSIBLE LUNG ABSCESS Patient Problems (Last Updated 05/16/16 @ 01:35 by Hector Fisher DO) SIRS (systemic inflammatory response syndrome) (Acute) Seroma (Acute) Dyspnea (Acute) Chest pain (Acute) Status post thoracotomy (Acute) Interstitial lung disease (Chronic) Vital Signs Temp Pulse Resp BP Pulse Ox 05/16/16 02:09 97.8 F 74 16 127/81 97 05/16/16 01:44 18 119/70 05/16/16 00:45 79 18 130/73 96 05/15/16 22:41 104 18 121/77 93 05/15/16 22:30 95 18 129/76 95 05/15/16 21:05 95 05/15/16 20:50 97.6 F 118 20 142/76 94 Laboratory Results 05/15/16 05/15/16 05/15/16 Range/Units 21:54 21:54 21:54 WBC 20.4 H (4.3-11.1) K/mcL RBC 3.90 (3.82-4.97) M/mcL Hgb 11.3 L (11.5-15.4) g/dL Hct 35.2 L (35.3-44.9) % MCV 90.3 (83.0-100.0) fL MCH 29.0 (28.0-33.3) pg MCHC 32.1 (31.6-35.5) g/dL RDW 15.7 H (11.5-14.5) % Plt Count 270 (140-400) K/mcL MPV 9.1 L (9.4-12.4) fL Immature Gran % 0.4 (0-4) % Seg Neutrophils % 81.6 % Lymphocytes % 14.1 % Monocytes % 3.5 % Eosinophils % 0.2 % Basophils % 0.2 % Neutrophils # 16.6 H (1.6-8.9) K/mcL Lymphocytes # 2.9 (0.6-4.6) K/mcL Monocytes # 0.7 (0.0-1.3) K/mcL Eosinophils # 0.1 (0.0-0.6) K/mcL Basophils # 0.1 (0.0-0.2) K/mcL D-Dimer 839 H (0-500) ng/mLFEU Sodium 141 (136-145) mEq/L Potassium 3.7 (3.5-4.5) mEq/L Chloride 107 (98-109) mEq/L Carbon Dioxide 22 (19-29) mEq/L BUN 10 (7-20) mg/dL Creatinine 0.95 (0.57-1.11) mg/dL Est GFR ( Amer) > 60 (> 60) Est GFR (Non-Af Amer) > 60 (> 60) BUN/Creatinine Ratio 11 (6-26) Glucose 105 H (70-99) mg/dL Calculated Osmolality 291 (280-300) Lactic Acid (0.5-2.2) mmol/L Calcium 9.0 (8.6-10.8) mg/dL Troponin I (0-0.03) ng/mL B-Natriuretic Peptide (0-100) pg/mL Urine Color (Yellow) Urine Clarity (Clear) Urine pH (5.0-8.0) pH Units Ur Specific [place] (1.010-1.025) Urine Protein (Neg-Trace) mg/dL Urine Glucose (UA) (Normal) mg/dL Urine Ketones (Negative) mg/dL Urine Blood (Negative) Urine Nitrite (Negative) Urine Bilirubin (Negative) Urine Urobilinogen (Normal) mg/dL Ur Leukocyte Esterase (Negative) Ur Culture Indicated? (NO) 05/15/16 05/15/16 05/15/16 Range/Units 21:54 21:54 22:43 WBC (4.3-11.1) K/mcL RBC (3.82-4.97) M/mcL Hgb (11.5-15.4) g/dL Hct (35.3-44.9) % MCV (83.0-100.0) fL MCH (28.0-33.3) pg MCHC (31.6-35.5) g/dL RDW (11.5-14.5) % Plt Count (140-400) K/mcL MPV (9.4-12.4) fL Immature Gran % (0-4) % Seg Neutrophils % % Lymphocytes % % Monocytes % % Eosinophils % % Basophils % % Neutrophils # (1.6-8.9) K/mcL Lymphocytes # (0.6-4.6) K/mcL Monocytes # (0.0-1.3) K/mcL Eosinophils # (0.0-0.6) K/mcL Basophils # (0.0-0.2) K/mcL D-Dimer (0-500) ng/mLFEU Sodium (136-145) mEq/L Potassium (3.5-4.5) mEq/L Chloride (98-109) mEq/L Carbon Dioxide (19-29) mEq/L BUN (7-20) mg/dL Creatinine (0.57-1.11) mg/dL Est GFR ( Amer) (> 60) Est GFR (Non-Af Amer) (> 60) BUN/Creatinine Ratio (6-26) Glucose (70-99) mg/dL Calculated Osmolality (280-300) Lactic Acid 0.8 (0.5-2.2) mmol/L Calcium (8.6-10.8) mg/dL Troponin I 0.00 (0-0.03) ng/mL B-Natriuretic Peptide 18 (0-100) pg/mL Urine Color (Yellow) Urine Clarity (Clear) Urine pH (5.0-8.0) pH Units Ur Specific [place] (1.010-1.025) Urine Protein (Neg-Trace) mg/dL Urine Glucose (UA) (Normal) mg/dL Urine Ketones (Negative) mg/dL Urine Blood (Negative) Urine Nitrite (Negative) Urine Bilirubin (Negative) Urine Urobilinogen (Normal) mg/dL Ur Leukocyte Esterase (Negative) Ur Culture Indicated? (NO) 05/16/16 Range/Units 00:14 WBC (4.3-11.1) K/mcL RBC (3.82-4.97) M/mcL Hgb (11.5-15.4) g/dL Hct (35.3-44.9) % MCV (83.0-100.0) fL MCH (28.0-33.3) pg MCHC (31.6-35.5) g/dL RDW (11.5-14.5) % Plt Count (140-400) K/mcL MPV (9.4-12.4) fL Immature Gran % (0-4) % Seg Neutrophils % % Lymphocytes % % Monocytes % % Eosinophils % % Basophils % % Neutrophils # (1.6-8.9) K/mcL Lymphocytes # (0.6-4.6) K/mcL Monocytes # (0.0-1.3) K/mcL Eosinophils # (0.0-0.6) K/mcL Basophils # (0.0-0.2) K/mcL D-Dimer (0-500) ng/mLFEU Sodium (136-145) mEq/L Potassium (3.5-4.5) mEq/L Chloride (98-109) mEq/L Carbon Dioxide (19-29) mEq/L BUN (7-20) mg/dL Creatinine (0.57-1.11) mg/dL Est GFR ( Amer) (> 60) Est GFR (Non-Af Amer) (> 60) BUN/Creatinine Ratio (6-26) Glucose (70-99) mg/dL Calculated Osmolality (280-300) Lactic Acid (0.5-2.2) mmol/L Calcium (8.6-10.8) mg/dL Troponin I (0-0.03) ng/mL B-Natriuretic Peptide (0-100) pg/mL Urine Color Yellow (Yellow) Urine Clarity Clear (Clear) Urine pH 6.5 (5.0-8.0) pH Units Ur Specific [place] > 1.030 H (1.010-1.025) Urine Protein Negative (Neg-Trace) mg/dL Urine Glucose (UA) Normal (Normal) mg/dL Urine Ketones Negative (Negative) mg/dL Urine Blood Negative (Negative) Urine Nitrite Negative (Negative) Urine Bilirubin Negative (Negative) Urine Urobilinogen Normal (Normal) mg/dL Ur Leukocyte Esterase Negative (Negative) Ur Culture Indicated? NO (NO) Assessments/Treatments ED Discharge Assessment Start: 05/15/16 20: 54 Freq: Status: Active Document 05/16/16 01:44 NNN (Rec: 05/16/16 01:45 NNN [id number]) ED Discharge Assessment ED Discharge Disposition Admitted ED Condition on Discharge Fair Med Rec/Patient Pharmacy Completed? Yes Admitted to 3A Bed assigned 3A34 Transported by certification technician Transported with oxygen IV Report given to Nurse Care transferred to (name/credentials) Giovana RN Information relayed patient's care treatments medications given condition recent/anticipated changes Clinical Documentation Summary Provided Yes Pain Scale 4 Pain Scale Used Standard (1-10) Blood Pressure 119/70 Heart rate 81 Respiratory Rate 18 Oxygen Delivery Nasal Cannula Oxygen Saturation 92 Critical Care Minutes 0 ED Pain Assessment Start: 05/15/16 20: 54 Freq: Status: Complete Document 05/15/16 21:05 NNN (Rec: 05/15/16 21:08 NNN [id number]) Pain Assessment Pain Present Reports Pain "Heart" Pain Description Ache Tightness Intensity 6 Scale Used Numeric (1 - 10) Frequency Constant ED Shortness of Breath Assessment Start: 05/15/16 20: 54 Freq: Status: Complete Document 05/15/16 21:05 NNN (Rec: 05/15/16 21:08 NNN [id number]) Shortness of Breath Sepsis Infection Criteria Present none Sepsis SIRS Criteria HR > 90 bpm Sepsis Screen No Definite Risk Sepsis Action Taken no action required Symptoms/Complaint Shortness of Breath Cough Duration Constant Severity Mild Context Unknown Improves With Nothing Worsens With Nothing Associated Symptoms Chest Pain Pain With Inspiration Cough Sputum Production Treatment Prior to Arrival Oxygen Respiratory Depth Normal Effort Normal for Patient Spontaneous Non-Labored Pattern Regular Posterior Bilateral Throughout Breath Sounds Clear Cough Description Involuntary Productive Frequency Intermittent Level Of Consciousness Awake Alert Appropriate Follows Commands Patient Orientation Person Place Time Patient Behavior Appropriate Cooperative Ability to Follow Directions Excellent Impaired Cognition No Skin Temperature Warm Skin Moisture Dry Skin Turgor Normal IV catheter insertion - peripheral Start: 05/15/16 22: 22 Freq: NOW Status: Active Document 05/15/16 22:30 NNN (Rec: 05/15/16 22:41 NNN [id number]) Intake and Output, Strict Start: 05/16/16 02: 09 Freq: Q8H Status: Active Document 05/16/16 02:09 LMO (Rec: 05/16/16 02:10 LMO [id number]) Intake and Output Intake, Oral Amount 0 Output, Urine Amount 0 Measure weight Start: 05/16/16 02: 09 Freq: Status: Active Document 05/16/16 02:09 LMO (Rec: 05/16/16 02:10 LMO [id number]) Height and Weight Weight 101.1 kg Weight Measurement Method Built in Bedscale Patient Rounding Start: 05/16/16 02: 09 Freq: Q1H Status: Active Document 05/16/16 02:09 LMO (Rec: 05/16/16 02:10 LMO [id number]) Hourly Rounding Hourly Rounding Checked for Patient Positioning Patient Personal Items Placed Within Reach Hourly Rounding Completed Yes Patient Awake Is family present? No Safety Call Light Within Reach Bed Position Low Phone Within Reach Bed Brake On Side Rails Up X2 Are the Floors Free From Trip Hazards? Yes Is the Room Free From Clutter? Yes Turn and Postion Bedrest No Turn Q 2HR No Patient Position Back Saline lock insertion/management Start: 05/15/16 21: 20 Freq: .ONCE Status: Complete Document 05/15/16 22:30 NNN (Rec: 05/15/16 22:41 NNN [id number]) IV Insertion/Site Assessment IV Attempt 1 Successful Successful Blood drawn and sent to Lab Yes Right Antecubital IV Established ROTARY ADJUSTER No Date of Insertion 05/15/16 Time of Insertion 22:30 Reason for IV Insertion Provide Access for IV Medication(s) IV Catheter Type Peripheral IV Gauge (gauge) 20 Site Observation Patent Dressing Applied Transparent Dressing Patient Tolerance Tolerated Well Supplemental oxygen titration Start: 05/15/16 20: 54 Freq: Status: Complete Document 05/15/16 21:05 NNN (Rec: 05/15/16 21:08 NNN [id number]) Oxygen Adminstration Oxygen Saturation 95 Oxygen Delivery Method Nasal Cannula Flow Rate 4 Supplemental oxygen titration Start: 05/15/16 21: 20 Freq: .ONCE Status: Complete Document 05/15/16 22:30 NNN (Rec: 05/15/16 22:41 NNN [id number]) Oxygen Adminstration Oxygen Saturation 95 Oxygen Delivery Method Nasal Cannula Flow Rate 4 Triage Start: 05/15/16 20: 50 Freq: Status: Complete Document 05/15/16 20:50 LAP (Rec: 05/15/16 20:54 LAP [id number]) Triage Chief Complaint triage ED Shortness of Breath/Dyspnea Patient Stated Complaint SOB/Weakness GEOVANY 3 Onset (ago) hour(s) Description of Symptoms PT states she has had increasing sob and weakness since this morning. S/P thoracotomy 04/03 General Appearance alert in no apparent distress Work Related Injury? No Mode of arrival ambulatory Source patient Limitations no limitations Ebola Risk: Travel/Contact With Anyone No From Affected Area/s Has Patient Experienced Ebola Symptoms No Temperature (97.6 F-99.6 F) 97.6 F Temperature Source Oral Pulse Rate 118 Respiratory Rate 20 Blood Pressure 142/76 O2 Sat by Pulse Oximetry 94 Oxygen Delivery Nasal Cannula Height 1.65 m Weight 113.398 kg Weight Measurement Method Stated by Patient Pain Scale 6 Pain Scale Used Standard (1-10) Medical history arthritis COPD GERD migraine osteoporosis other Additional surgical history PMH rt thoracotomy 03/29/16 vulvar condylomata removal LEEP conizaton EGD Condyloma removal partial vulvectomy bronchoscopy Psychiatric history anxiety bipolar depression other Smoking Status Heavy tobacco smoker Smokeless Tobacco Status No Alcohol Use occasionally Drug Use marijuana other Patient resides with/at Significant Other Safety Concerns Feels Safe At This Time Do you currently feel hopless, have No thoughts of self harm, or thoughts of harming others History of fall in last 14 days? No Hx Last Menstrual Period 4 wks Hx Now No [employer] history polycystic ovary syndrome bilateral tubal ligation Influenza vaccine up to date No Pneumonia vaccine up to date Yes Tetanus UTD no Coma Scale Eye Opening Spontaneous Coma Scale Motor Response Obeys Commands Coma Scale Verbal Response Oriented Coma Scale Total 15 Vital Signs Assessment Start: 05/15/16 22: 34 Freq: PROTOCOL Status: Active Document 05/15/16 22:30 NNN (Rec: 05/15/16 22:41 NNN [id number]) ED Vital Signs Pain Reported Pain Reported Pain Scale 5 Blood Pressure 129/76 Pulse Rate 95 Respiratory Rate 18 Pulse Oximetry 95 Oxygen Delivery Nasal Cannula Document 05/15/16 22:41 NNN (Rec: 05/15/16 22:42 NNN [id number]) ED Vital Signs Pain Reported Pain Reported Pain Scale 4 Blood Pressure 121/77 Pulse Rate 104 Respiratory Rate 18 Pulse Oximetry 93 Oxygen Delivery Nasal Cannula Oxygen Flow Rate (LPM) 4 Document 05/16/16 00:45 NNN (Rec: 05/16/16 00:46 NNN [id number]) ED Vital Signs Pain Reported No Pain Reported Pain Scale 6 Blood Pressure 130/73 Pulse Rate 79 Respiratory Rate 18 Pulse Oximetry 96 Oxygen Delivery Nasal Cannula Oxygen Flow Rate (LPM) 4 Vital Signs Assessment Start: 05/16/16 02: 09 Freq: Q4H Status: Active Document 05/16/16 02:09 LMO (Rec: 05/16/16 02:10 LMO [id number]) Vital Signs with MEWS Temperature (97.6 F-99.6 F) 97.8 F Temperature Source Oral Pulse Rate 74 Respiratory Rate 16 Pulse Oximetry 97 Oxygen Delivery Nasal Cannula Oxygen Flow Rate (LPM) 4 Blood Pressure 127/81 Blood Pressure Location Left Arm Source Automatic Cuff Position Sitting Neuro Status *recalled from last Alert documentation MEWS Score 1 Discharge Information ED Provider: Sai Coats Status: Departed Time Seen by Provider: 05/15/16 20:56 Condition: Good Triaged At: 05/15/16 20:50 Emergency Discharge Date/Time: 05/16/16 01:40 Emergency Discharge Disposition: Admitted As Inpatient Clinical Impression Interstitial lung disease SIRS (systemic inflammatory response syndrome) Seroma Dyspnea Chest pain Status post thoracotomy Emergency Discharge Comment: Admit Intervention Last Done ED Shortness of Breath Assessment 05/15/16 21:05 Query Result Sepsis Infection Criteria Present none Sepsis SIRS Criteria HR > 90 bpm Sepsis Screen No Definite Risk Sepsis Action Taken no action required Shortness Of Breath Symptoms/Complaint Shortness of Breath Cough Shortness Of Breath Duration Constant Shortness Of Breath Severity Mild Shortness Of Breath Context Unknown Shortness Of Breath Improves With Nothing Shortness Of Breath Worsens With Nothing Shortness Of Breath Associated Symptoms Chest Pain Pain With Inspiration Cough Sputum Production Shortness Of Breath Treatments Prior to Oxygen Arrival Respiratory Depth Normal Respiratory Effort Normal for Patient Spontaneous Non-Labored Respiratory Pattern Regular Posterior Bilateral Throughout -Breath Sounds Clear Cough Description Involuntary Productive Cough Frequency Intermittent Level Of Consciousness Awake Alert Appropriate Follows Commands Patient Orientation Person Place Time Patient Behavior Appropriate Cooperative Ability to Follow Directions Excellent Impaired Cognition No Skin Temperature Warm Skin Moisture Dry Skin Turgor Normal ED Discharge Assessment 05/16/16 01:44 Query Result ED Discharge Disposition Admitted ED Condition on Discharge Fair Med Rec/Patient Phamracy completed? Yes ED Admit to 3A Bed assigned 3A34 Transported by certification technician Transported with oxygen IV Report given to Nurse Care transferred to Giovana RN Information relayed patient's care treatments medications given condition recent/anticipated change Clinical Documentation Summary Provided Yes Severity scale (1-10) 4 Pain Scale Used Standard (1-10) Blood Pressure 119/70 Heart rate 81 Respiratory Rate 18 Oxygen Delivery Nasal Cannula Pulse Oximetry Reading 92 Critical Care Minutes 0 Observation Discharge Date/Time: Observation Discharge Disposition: Observation Discharge Comment: Instructions: Stand-Alone Forms: Prescriptions: Visit Report - Forms: - Referrals: Radiology Results Chest X-Ray 05/15/16 20:56 IMPRESSION: Bibasilar opacities, unchanged since previous exam. D/ / Aleida Bowman MD / Aleida Bowman MD Interpreting Provider: Aleida Bowman MD Chest CTA 05/15/16 22:23
[2016-05-16] MEDS ORDERED: *HR* Promethazine 25 MG/ML VIAL IVP PRN (02:39)
[2016-05-16] MEDS ORDERED: Naloxone 0.4 MG/ML INJ IVP PRN (02:39)
[2016-05-16] MEDS ORDERED: Acetaminophen 325 MG TABLET PO PRN (02:39)
[2016-05-16] MEDS ORDERED: *HR* HYDROmorphone (PF) 1 MG/ML SYRINGE IVP PRN (02:39)
[2016-05-16] MEDS ORDERED: Ketorolac 30 MG/ML VIAL IM STA (02:43)
[2016-05-16] MEDS ORDERED: Albuterol 2.5 MG/3 ML NEBULIZER IH PRN (02:44)
[2016-05-16] MEDS ORDERED: Benzonatate 100 MG CAPSULE PO PRN (02:48)
[2016-05-16] MEDS ORDERED: Ketorolac 15 MG/ML VIAL IVP PRN (03:03)
[2016-05-16] MEDS ORDERED: Ketorolac 30 MG/ML VIAL IVP STA (03:03)
[2016-05-16] MEDS: 0.9 % Sodium Chloride 1,000 ML IVC SCH (03:12)
[2016-05-16] MEDS: *HR* OxyCODONE Immed Rel 5 MG TABLET PO PRN (03:12)
[2016-05-16 03:54] LABS: Hemoglobin A1C 5.1 %
[2016-05-16 04:00] LABS: Phosphorous 4.3 mg/dL (2.3-4.7)
[2016-05-16] MEDS ORDERED: diazePAM 10 MG TABLET PO PRN (04:03)
[2016-05-16] MEDS ORDERED: NON-FORMULARY MEDICATION 1 EACH EACH (Oxygen [Oxygen] 4 L) NS SCH (04:15)
[2016-05-16 04:17] LABS: Thyroid Stimulating Hormone 1.86 mcIU/mL (0.350-4.840)
[2016-05-16] MEDS: Ipratropium/Albuterol Neb 3 ML IH SCH ×4 (04:34→23:29)
[2016-05-16] MEDS ORDERED: Ketorolac 15 MG/ML VIAL IM PRN (06:00)
[2016-05-16 07:57] LABS: Basophils % 0.3 %; Eosinophils # 0.1 K/mcL (0.0-0.6); Eosinophils % 0.8 %; Hemoglobin 10.5 g/dL (11.5-15.4); Immature Granulocytes % 0.3 % (0-4); Lymphocytes # 3.5 K/mcL (0.6-4.6); Lymphocytes % 24.9 %; Mean Corpuscular HGB Conc 31.8 g/dL (31.6-35.5); Mean Corpuscular Volume 91.2 fL (83.0-100.0); Mean Platelet Volume 9.8 fL (9.4-12.4); Monocytes # 0.7 K/mcL (0.0-1.3); Neutrophils # 9.6 K/mcL (1.6-8.9); Platelet Count 238 K/mcL (140-400); Red Blood Count 3.62 M/mcL (3.82-4.97); Red Cell Distribution Width 15.9 % (11.5-14.5); Segmented Neutrophils % 68.7 %
[2016-05-16] MEDS: ARIPiprazole 10 MG TABLET PO SCH (08:25)
[2016-05-16] MEDS: predniSONE 20 MG TABLET PO SCH (08:26)
[2016-05-16] MEDS: Nicotine 21 MG PATCH.TD24 TD SCH (08:26)
[2016-05-16] MEDS: Baclofen 10 MG TABLET PO SCH ×3 (08:26→20:21)
--- NOTE | 2016-05-16 11:07 | Event Note ---
Date of Encounter: 05/16/16 Time of Encounter: 10:15 Patient is feeling better now. Shortness of breath and chest pain are improving. Continue current management. If patient's symptoms continue to improve and she is feeling better she will be discharged in the morning.
--- NOTE | 2016-05-16 14:04 | Electrocardiograph Report ---
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
[2016-05-16] MEDS: *HR* Heparin 5,000 UNIT/ML VIAL SQ SCH (18:59)
[2016-05-17] MEDS: 0.9 % Sodium Chloride 1,000 ML IVC SCH (00:05)
[2016-05-17] MEDS: *HR* OxyCODONE Immed Rel 5 MG TABLET PO PRN (03:03)
[2016-05-17] MEDS: Ipratropium/Albuterol Neb 3 ML IH SCH ×2 (04:52→10:12)
[2016-05-17 04:54] LABS: Basophils % 0.2 %; Eosinophils % 0.2 %; Hematocrit 34.9 % (35.3-44.9); Immature Granulocytes % 0.4 % (0-4); Lymphocytes # 3.3 K/mcL (0.6-4.6); Lymphocytes % 28.3 %; Mean Corpuscular HGB Conc 31.5 g/dL (31.6-35.5); Mean Corpuscular Hemoglobin 28.6 pg (28.0-33.3); Mean Corpuscular Volume 90.6 fL (83.0-100.0); Mean Platelet Volume 9.4 fL (9.4-12.4); Monocytes # 0.7 K/mcL (0.0-1.3); Monocytes % 6.1 %; Neutrophils # 7.4 K/mcL (1.6-8.9); Platelet Count 274 K/mcL (140-400); Red Blood Count 3.85 M/mcL (3.82-4.97); Red Cell Distribution Width 15.9 % (11.5-14.5); Segmented Neutrophils % 64.8 %
[2016-05-17 05:15] LABS: BUN/Creatinine Ratio 13 (6-26); Blood Urea Nitrogen 11 mg/dL (7-20); Calcium 9.2 mg/dL (8.6-10.8); Carbon Dioxide 19 mEq/L (19-29); Chloride 109 mEq/L (98-109); Glucose 79 mg/dL (70-99); Osmolality,Calculated 286 (280-300); Potassium 3.9 mEq/L (3.5-4.5); Sodium 139 mEq/L (136-145); eGFR For African Americans > 60 (> 60); eGFR For Non-African Americans > 60 (> 60)
[2016-05-17] MEDS: *HR* Heparin 5,000 UNIT/ML VIAL SQ SCH (06:08)
[2016-05-17 07:20] VITALS: BP 116/72
[2016-05-17] MEDS: Baclofen 10 MG TABLET PO SCH (08:40)
[2016-05-17] MEDS: Nicotine 21 MG PATCH.TD24 TD SCH (08:40)
[2016-05-17] MEDS: ARIPiprazole 10 MG TABLET PO SCH (08:40)
[2016-05-17] MEDS: predniSONE 20 MG TABLET PO SCH (08:41)
--- NOTE | 2016-05-17 09:39 | Discharge Summary ---
Date of Encounter: 05/17/16 Time of Encounter: 08:35 - Discharge Diagnosis (1) Acute and chronic respiratory failure with hypoxia Priority: Primary Status: Acute (2) Chest pain with low risk of acute coronary syndrome Priority: Secondary Status: Acute (3) COPD (chronic obstructive pulmonary disease) Priority: Secondary Status: Acute Qualifiers: COPD type: COPD with acute exacerbation Qualified Code(s): J44.1 - Chronic obstructive pulmonary disease with (acute) exacerbation (4) Dependence on continuous supplemental oxygen Priority: Secondary Status: Chronic (5) Post-thoracotomy pain Priority: Secondary Status: Chronic (6) Postoperative wound seroma Priority: Secondary Status: Chronic - Discharge Medications Home Medications: Albuterol Sulfate [Albuterol Inhaler] 2 puff IH Q4HR PRN 10/01/14 [History] Aripiprazole [Abilify] 30 mg PO DAILY 10/01/14 [History] Diazepam [Valium] 10 mg PO QID PRN 10/01/14 [History] Duloxetine [Cymbalta] 120 mg PO DAILY 10/01/14 [History] Fluticasone/Salmeterol [Advair 500-50 Diskus] 1 puff IH BID 10/01/14 [History] Naproxen [Naprosyn] 500 mg PO BID 5 Days 09/04/15 [Rx] Ipratropium/Albuterol Neb [Duoneb] 3 ml IH Q6HR PRN 02/03/16 [History] Oxygen 4 l NS CONT 02/03/16 [History] Tiotropium [place] [Spiriva Respimat] 2 puff IH DAILY 02/03/16 [History] Baclofen [Lioresal] 10 mg PO TID 04/19/16 [History] OxyCODONE/APAP 10/325 [Percocet 10/325 MG] 1 each PO Q6HR PRN #30 tablet [Rx] Docusate [Colace] 100 mg PO BID 05/16/16 [History] Furosemide [Lasix] 40 mg PO DAILY 05/16/16 [History] Polyethylene Glycol 3350 [MiraLAX bowel prep] 17 g PO DAILY 05/16/16 [History] Allergies/Adverse Reactions: Allergies Cefaclor Allergy (Verified 04/19/16 15:06) Rash Asenapine [From Saphris] Adverse Reaction (Verified 04/19/16 15:06) See Comments patient states symptoms worsen lamotrigine [From Lamictal] Adverse Reaction (Verified 04/19/16 15:06) Migraine lurasidone [From Latuda] Adverse Reaction (Verified 04/19/16 15:06) See Comments patient states symptoms worsen Date of admission: 05/16/16 01:36 Primary care physician: Mervin Santiago MD Consults: 05/16/16 02:43 Consult to Occupational Therapy [CONS] Routine Comment: Evaluate, develop and implement POC Consult to Physical Therapy [CONS] Routine Comment: Evaluate, develop and implement POC 05/16/16 02:44 Consult to Nurse Navigator [CONS] Routine Comment: 05/16/16 09:00 Consult to Pulmonary Rehab [CONS] Routine Reason for Consult: End-stage COPD, emphysema and interstitial lung disease, status post wedge biopsy via thoracotomy approach and postthoracotomy pain. Please evaluate and advise a progress rehabilitative efforts post procedure. Time Notified: 02:46 Call Completed: No Discharging clinician: Rebel Nicole Anticipated date of discharge: 05/17/16 - Patient Status Disposition: Home, Self-Care Condition: Good Functional capacity at discharge: independent ambulation Overall status at discharge: patient is back to baseline - Discharge Instructions Instructions: Chest Pain (DC) Follow Up With: Mervin Santiago MD [Primary Care Provider] - (In 1-2 weeks) - Diet and Activity Activity: wear oxygen at all times Diet: low fat, low cholesterol, low salt diet Hospital course: Ms. Monet is a 35 year old female with history of chronic interstitial lung disease, COPD, emphysema, chronic respiratory failure, depression, degenerative osteoarthritis who recently underwent thoracotomy to diagnose interstitial lung disease presented with chest pain near her surgical site along with associated shortness of breath. She was observed in the hospital for this and treated for acute COPD exacerbation. A CT scan of the chest showed decreasing size in the seroma that the patient developed post surgery. Her pain has now improved and she is breathing much better now and feels good enough to go home. She will be discharged on her usual home medications. She will continue to use her supplemental oxygen. Her troponins have been negative here. She did have leukocytosis but there were no signs of infection and her CT scan did not show any infiltrates. She will follow up with her primary care provider for further management of her chronic medical conditions. - Time Spent with Patient Total time spent providing and/or coordinating discharge services: Less than 30 minutes (20 min) - Constitutional Vitals: Temp Pulse Resp BP Pulse Ox 98.5 F 88 18 116/72 92 05/17/16 07:15 05/17/16 07:15 05/17/16 07:15 05/17/16 07:15 05/17/16 07:15 General appearance: Present: cooperative, mild distress, A&O X 3, morbidly obese , answers questions appropriately - Respiratory Respiratory exam: Present: prolonged expiratory phase, wheezes. Absent: accessory muscle use, rales, rhonchi - Cardiovascular Cardiovascular exam: Present: RRR, +S1, +S2. Absent: diastolic murmur, gallop, rubs, systolic murmur - GI/Abdominal GI/Abdominal exam: Present: normal bowel sounds, soft, no peritoneal signs. Absent: distended, tenderness - Extremities Exam Extremities exam: Present: warm, radial pulses palpable and symetrical. Absent : calf tenderness, cyanotic, pedal edema - Attending Attestation This document has been at least partially created by [employer] recognition technology by Dr. Nicole. Errors in grammar, wording or other phrases may exist. If errors are found after the documentation is signed, they will be addressed individually in the addendum section of this document when appropriate.
== END 2016-05-17 10:28 | disposition home or self-care (01) ==
LOC: EMEROO 20:46 → 3ANU 20:46
PROVIDERS: ADMIT Internal Medicine; ATTEND Internal Medicine

== ENCOUNTER 2017-01-08 20:18 | Observation (INO) ==
[2017-01-08] MEDS ORDERED: Ipratropium/Albuterol Neb 3 ML IH ONE (21:19)
[2017-01-08] MEDS ORDERED: methylPREDNISolone 125 MG/2 ML VIAL IVP ONE (21:19)
--- NOTE | 2017-01-08 21:24 | Emergency Department Note ---
Disposition Clinical Impression: COPD with acute exacerbation Disposition: Admitted As Inpatient Condition: Fair Time of Disposition: 22:26 SOB HPI - General Chief Complaint: ED Upper Respiratory Infection Stated Complaint: "Back Pain/Thinks She Has Pneumonia Again" Time Seen by Provider: 01/08/17 20:37 Source: patient Mode of arrival: ambulatory Limitations: no limitations Nursing Notes Reviewed: Yes Vital Signs Reviewed: Yes - History of Present Illness 36yof with hx of COPD and pulmonary fibrosis on 4 L of O2 chronically complaining of worsening back pain bilaterally worse with deep inspiration. Patient states 8/10 pain, also has had SOB and productive cough and wheezing and pain is localized to dinah bilateral back. Taken Levaquin 10 days. Hi barraza pulmonology. Pt Subjective Complaint: shortness of breath, cough, pain with inspiration Onset (ago): week(s) (1) Severity: moderate Consistency/Duration: constant Improves with: oxygen Worsens with: coughing Known history of: COPD, other (Pulm fibrosis) Associated symptoms: Reports: fever, cough, sputum production. Denies: chest pain, pain with inspiration - Related Data Home Medications Medication Instructions Recorded Confirmed ARIPiprazole [Abilify] 30 mg PO DAILY 10/01/14 01/09/17 DULoxetine [Cymbalta] 60 mg PO BID 10/01/14 01/09/17 Fluticasone/Salmeterol [Advair 1 puff IH BID 10/01/14 01/09/17 500-50 Diskus] Ipratropium/Albuterol Neb [Duoneb] 3 ml IH Q6HR PRN 02/03/16 01/09/17 Oxygen 4 l NS CONT 02/03/16 01/09/17 Tiotropium [place] [Spiriva 2 puff IH DAILY 02/03/16 01/09/17 Respimat] Baclofen [Lioresal] 10 mg PO TID 04/19/16 01/09/17 Pantoprazole Sodium [Protonix] 40 mg PO BID 08/26/16 01/09/17 Varenicline Tartrate [Chantix] 1 mg PO DAILY 08/26/16 01/09/17 Previous Rx's Medication Instructions Recorded Naproxen [Naprosyn] 500 mg PO BID 5 Days tablet 09/04/15 OxyCODONE/APAP 10/325 [Percocet 1 each PO Q6HR PRN #30 tablet 04/22/16 10/325 MG] Albuterol Sulfate [Albuterol 2 puff IH Q4HR #1 hfa.aer.ad 07/26/16 Inhaler] Allergies Allergy/AdvReac Type Severity Reaction Status Date / Time ketorolac [From Toradol] Allergy Intermediate Weakness Verified 01/08/17 20:40 Pneumococcal Vaccine Allergy Intermediate Rash Verified 01/08/17 20:40 [From Prevnar] tramadol Allergy Intermediate Weakness Verified 01/08/17 20:40 Cefaclor Allergy Rash Verified 01/08/17 20:40 Asenapine [From Saphris] AdvReac See Verified 01/08/17 20:40 Comments lamotrigine [From Lamictal] AdvReac Migraine Verified 01/08/17 20:40 lurasidone [From Latuda] AdvReac See Verified 01/08/17 20:40 Comments All systems ED: reviewed and negative except as stated. Limitations: ROS unobtainable due to patients medical condition Constitutional: Reports: fever. Denies: chills Eyes: Denies: eye pain ENT ED: Denies: ear pain Cardiovascular: Denies: chest pain, palpitations Respiratory: Reports: as per HPI, cough, dyspnea Gastrointestinal: Denies: abdominal pain, nausea Genitourinary: Denies: urgency Musculoskeletal: Denies: back pain Integumentary: Denies: rash Neurological: Denies: headache Psychiatric: Denies: anxiety Past Medical History - Past Medical History Attestation: Yes The following information was validated with the patient. Source: patient Medical history: Reports: arthritis, asthma, COPD, fibromyalgia, GERD, migraine , osteoporosis, renal disease, other Surgical history: Reports: other (Bronchoscopy. Right lung biopsy s/p thoracotomy s/p chest-tube placement/removal. Colectomy adenoidectomy. EGD. Laparoscopic tubal ligation. Coagulation with bipolar cautery. LEEP conization. Condylomata removal and partial vulvectomy) Psychiatric history: Reports: anxiety, bipolar, depression, other [employer] history: Reports: polycystic ovary syndrome, bilateral tubal ligation - Social History Smoking Status: Current every day smoker Smokeless Tobacco Status: No Alcohol use: Reports: occasionally Drug use: Reports: marijuana, other Physical Exam - General General appearance: in distress - Head Head exam: atraumatic - ENT ENT exam: normal exam - Neck Neck exam: Absent: normal inspection - Chest Chest inspection: Absent: normal inspection - Respiratory Respiratory exam: Present: respiratory distress, wheezes. Absent: stridor, accessory muscle use - Expanded Respiratory Exam Location: wheezes: Upper, Lower - Cardiovascular Cardiovascular exam: Present: regular rate - Abdominal Exam Abdominal exam: Present: soft. Absent: Non-Tender, tenderness - Extremities Exam Extremities exam: Absent: normal inspection - Neurological Exam Neurological exam: Present: alert, oriented X3, CN II-XII intact - Psychiatric Psychiatric exam: Present: normal affect - Skin Skin exam: Present: warm, dry, intact Course Course Narrative: 36yof presents tachypneic on 4 L of oxygen with pulmonary fibrosis, hx of same and COPD, on chronic oxygen follows with Dr Zavala pulmonology, recently treated with levaquin outpatient with no improvement. CP workup with labs and EKG Chest xray steroids and duonebs ordered. Likely admission for AECOPD - Reevaluation(s) Reevaluation #1: Amitted to [facility] for hypoxia, improved with duonebs and solumedrol, acute on chronic resp failure, AECOPD, added CTA chest Dr Al will call back for results. Time: 23:01 Vital Signs Temperature 98.4 F 01/08/17 20:36 Pulse Rate 93 01/08/17 20:36 Respiratory Rate 20 01/08/17 20:36 Blood Pressure 131/88 01/08/17 20:36 O2 Sat by Pulse Oximetry 94 01/08/17 20:36 Temperature 97.8 F 01/09/17 15:23 Pulse Rate 105 01/09/17 15:23 Respiratory Rate 16 01/09/17 15:23 Blood Pressure 133/86 01/09/17 15:23 O2 Sat by Pulse Oximetry 94 01/09/17 15:23 Oxygen Delivery Oxygen Delivery Nasal Cannula Shortness of Breath/Dyspnea - Differential Diagnosis Likely: acute exacerbation of chronic obstructive airways disease, congestive heart failure, pneumonia, asthma with exacerbation - Medical Records Medical records reviewed: Yes I reviewed the patient's medical records. - Lab Data Lab results reviewed: Yes I reviewed the patient's lab results. Result diagrams: 01/09/17 03:55 01/09/17 03:55 Lab Results 1101/08/17 01/08/17 Range/Units 21:41 22:14 22:14 WBC 11.1 (4.3-11.1) K/mcL RBC 4.54 (3.82-4.97) M/mcL Hgb 12.7 (11.5-15.4) g/dL Hct 40.4 (35.3-44.9) % MCV 89.0 (83.0-100.0) fL MCH 28.0 (28.0-33.3) pg MCHC 31.4 L (31.6-35.5) g/dL RDW 14.7 H (11.5-14.5) % Plt Count 277 (140-400) K/mcL MPV 9.2 L (9.4-12.4) fL Immature Gran % 0.3 (0-4) % Seg Neutrophils % 56.5 % Lymphocytes % 34.6 % Monocytes % 4.9 % Eosinophils % 3.2 % Basophils % 0.5 % Neutrophils # 6.3 (1.6-8.9) K/mcL Lymphocytes # 3.8 (0.6-4.6) K/mcL Monocytes # 0.5 (0.0-1.3) K/mcL Eosinophils # 0.4 (0.0-0.6) K/mcL Basophils # 0.1 (0.0-0.2) K/mcL Sodium 138 (136-145) mEq/L Potassium 4.4 (3.5-4.5) mEq/L Chloride 102 (98-109) mEq/L Carbon Dioxide 26 (19-29) mEq/L BUN 5 L (7-20) mg/dL Creatinine 0.87 (0.57-1.11) mg/dL Est GFR ( Amer) > 60 (> 60) Est GFR (Non-Af Amer) > 60 (> 60) BUN/Creatinine Ratio 6 (6-26) Glucose 89 (70-99) mg/dL Calculated Osmolality 283 (280-300) Lactic Acid (0.5-2.2) mmol/L Calcium 9.3 (8.6-10.8) mg/dL Total Bilirubin (0.2-1.2) mg/dL Direct Bilirubin (0.0-0.5) mg/dL Indirect Bilirubin (0.0-1.2) mg/dL AST (5-34) Units/L ALT (0-55) Units/L Alkaline Phosphatase (38-126) Units/L Troponin I (0-0.03) ng/mL Serum Total Protein (6.0-8.3) g/dL Albumin (3.5-5.0) g/dL Globulin (2.4-3.5) g/dL Albumin/Globulin Ratio (1.1-2.2) Lipase (8-78) Units/L Urine Color Yellow (Yellow) Urine Clarity Clear (Clear) Urine pH 6.5 (5.0-8.0) pH Units Ur Specific [place] 1.008 L (1.010-1.025) Urine Protein Negative (Neg-Trace) mg/dL Urine Glucose (UA) Normal (Normal) mg/dL Urine Ketones Negative (Negative) mg/dL Urine Blood Negative (Negative) Urine Nitrite Negative (Negative) Urine Bilirubin Negative (Negative) Urine Urobilinogen Normal (Normal) mg/dL Ur Leukocyte Esterase Negative (Negative) Ur Culture Indicated? NO (NO) 01/08/17 01/08/17 01/08/17 Range/Units 22:14 22:14 22:14 WBC (4.3-11.1) K/mcL RBC (3.82-4.97) M/mcL Hgb (11.5-15.4) g/dL Hct (35.3-44.9) % MCV (83.0-100.0) fL MCH (28.0-33.3) pg MCHC (31.6-35.5) g/dL RDW (11.5-14.5) % Plt Count (140-400) K/mcL MPV (9.4-12.4) fL Immature Gran % (0-4) % Seg Neutrophils % % Lymphocytes % % Monocytes % % Eosinophils % % Basophils % % Neutrophils # (1.6-8.9) K/mcL Lymphocytes # (0.6-4.6) K/mcL Monocytes # (0.0-1.3) K/mcL Eosinophils # (0.0-0.6) K/mcL Basophils # (0.0-0.2) K/mcL Sodium (136-145) mEq/L Potassium (3.5-4.5) mEq/L Chloride (98-109) mEq/L Carbon Dioxide (19-29) mEq/L BUN (7-20) mg/dL Creatinine (0.57-1.11) mg/dL Est GFR ( Amer) (> 60) Est GFR (Non-Af Amer) (> 60) BUN/Creatinine Ratio (6-26) Glucose (70-99) mg/dL Calculated Osmolality (280-300) Lactic Acid 0.9 (0.5-2.2) mmol/L Calcium (8.6-10.8) mg/dL Total Bilirubin 0.3 (0.2-1.2) mg/dL Direct Bilirubin 0.1 (0.0-0.5) mg/dL Indirect Bilirubin 0.2 (0.0-1.2) mg/dL AST 13 (5-34) Units/L ALT 11 (0-55) Units/L Alkaline Phosphatase 90 (38-126) Units/L Troponin I 0.01 (0-0.03) ng/mL Serum Total Protein 7.7 (6.0-8.3) g/dL Albumin 3.4 L (3.5-5.0) g/dL Globulin 4.3 H (2.4-3.5) g/dL Albumin/Globulin Ratio 0.8 L (1.1-2.2) Lipase 19 (8-78) Units/L Urine Color (Yellow) Urine Clarity (Clear) Urine pH (5.0-8.0) pH Units Ur Specific [place] (1.010-1.025) Urine Protein (Neg-Trace) mg/dL Urine Glucose (UA) (Normal) mg/dL Urine Ketones (Negative) mg/dL Urine Blood (Negative) Urine Nitrite (Negative) Urine Bilirubin (Negative) Urine Urobilinogen (Normal) mg/dL Ur Leukocyte Esterase (Negative) Ur Culture Indicated? (NO) - Radiology Data Radiology results reviewed: Yes I reviewed the patient's radiology results. Chest X-Ray 01/08/17 21:20 IMPRESSION: Scarring in the lung bases. No obvious superimposed acute process. D/ : / 01/08/2017 21:53:58 [facility] Interpre[facility] Provider: Ann Pantoja MD - EKG Data EKG attestation: Yes I reviewed and interpreted this EKG. EKG shows normal: Reports: sinus rhythm (83 ) Rate: Reports: normal Rhythm: Reports: NSR [place]/QRS: Reports: normal (132 ID 104 QRS) Attestation Statement - Attestation Attestation: I examined this patient and my medical decision-making was reviewed with the Resident Physician. I agree with the documented findings, disposition and treatment plan as described except to the extent set forth below.
[2017-01-08 21:53] LABS: Bilirubin,Urine Negative (Negative); Blood,Urine Negative (Negative); Clarity,Urine Clear (Clear); Color,Urine Yellow (Yellow); Glucose,Urine (UA) Normal (Normal); Ketones,Urine Negative (Negative); Leukocyte Esterase,Urine Negative (Negative); Nitrite,Urine Negative (Negative); PH,Urine 6.5 pH Units (5.0-8.0); Protein,Urine Negative (Neg-Trace); Specific Gravity,Urine 1.008 (1.010-1.025); Urobilinogen,Urine Normal (Normal)
[2017-01-08] MEDS ORDERED: *HR* Morphine 2 MG/ML SYRINGE IVP ONE (22:04)
[2017-01-08] MEDS ORDERED: Ondansetron 4 MG/2 ML VIAL IVP ONE (22:04)
[2017-01-08 22:30] LABS: Basophils # 0.1 K/mcL (0.0-0.2); Basophils % 0.5 %; Eosinophils # 0.4 K/mcL (0.0-0.6); Eosinophils % 3.2 %; Hematocrit 40.4 % (35.3-44.9); Hemoglobin 12.7 g/dL (11.5-15.4); Immature Granulocytes % 0.3 % (0-4); Lymphocytes # 3.8 K/mcL (0.6-4.6); Lymphocytes % 34.6 %; Mean Corpuscular HGB Conc 31.4 g/dL (31.6-35.5); Mean Platelet Volume 9.2 fL (9.4-12.4); Monocytes # 0.5 K/mcL (0.0-1.3); Monocytes % 4.9 %; Neutrophils # 6.3 K/mcL (1.6-8.9); Platelet Count 277 K/mcL (140-400); Red Blood Count 4.54 M/mcL (3.82-4.97); Red Cell Distribution Width 14.7 % (11.5-14.5); Segmented Neutrophils % 56.5 %
[2017-01-08 22:44] LABS: BUN/Creatinine Ratio 6 (6-26); Blood Urea Nitrogen 5 mg/dL (7-20); Calcium 9.3 mg/dL (8.6-10.8); Carbon Dioxide 26 mEq/L (19-29); Chloride 102 mEq/L (98-109); Glucose 89 mg/dL (70-99); Osmolality,Calculated 283 (280-300); Potassium 4.4 mEq/L (3.5-4.5); Sodium 138 mEq/L (136-145); eGFR For African Americans > 60 (> 60); eGFR For Non-African Americans > 60 (> 60)
[2017-01-08 22:46] LABS: Albumin 3.4 g/dL (3.5-5.0); Albumin/Globulin Ratio 0.8 (1.1-2.2); Bilirubin,Direct 0.1 mg/dL (0.0-0.5); Bilirubin,Indirect 0.2 mg/dL (0.0-1.2); Bilirubin,Total 0.3 mg/dL (0.2-1.2); Globulin 4.3 g/dL (2.4-3.5); Total Protein 7.7 g/dL (6.0-8.3)
[2017-01-08 23:17] LABS: VBG HCO3 27 mEq/L (21-27); VBG PCO2 50 mmHg (41-51); VBG PH 7.34 pH Units (7.32-7.42); VBG PO2 67 mmHg (25-50)
--- NOTE | 2017-01-08 23:32 | Internal Med History&Physical ---
Date of Encounter: 01/09/17 Time of Encounter: 23:28 Assessment and Plan (1) Acute and chronic respiratory failure with hypoxia Current visit: Yes Status: Acute Secondary to pulmonary fibrosis and COPD exacerbation. Continue with oxygen by nasal cannula. Titrate to maintain saturation above 92. She is currently in the low 90s on 4 L/m. (2) Tobacco abuse Current visit: Yes Status: Acute I have strongly encouraged complete smoking cessation and provided counseling. (3) Morbid obesity with BMI of 40.0-44.9, adult Current visit: No Status: Chronic Outpatient follow-up and weight loss regimen. (4) COPD with acute exacerbation Current visit: Yes Status: Acute Likely secondary to tobacco abuse however upper respiratory viral infection could be contributing. I will obtain respiratory infection panel. We will treat her with IV Solu- Medrol and DuoNeb inhaled. No need for antibiotics since the patient does not have increased sputum production, fever or infiltrate and does not require mechanical ventilation. (5) Interstitial lung disease Current visit: No Status: Chronic Continue with supplemental oxygen. Interstitial findings are stable when compared to prior previous chest x-ray. We will obtain CT scan of the chest to rule out underlying pneumonia. (6) Chest pain Current visit: Yes Status: Acute Trend troponin to rule out ACS. Qualifiers: Chest pain type: chest pain on breathing Qualified Code(s): R07.1 - Chest pain on breathing; R07.81 - Pleurodynia Internal Medicine - H&P: HPI Chief complaint: Chest pain Admitted From: Emergency Dept Plans for Post Hospital Care: Home History of present illness: Ms. Monet is a 36 year old female with past medical history significant for COPD, chronic hypoxic respiratory failure on oxygen at 4 L/m continuously, chronic tobacco smoker, pulmonary fibrosis presented to the hospital for evaluation chest pain. She reports one week of progressively worsening bilateral chest pain, described as dull and moderate worse with inspiration, associated with cough subjective fevers and chills. Denies increasing sputum production. She was prescribed a course of prednisone and Levaquin which she completed however her symptoms did not get better. Review of systems positive for cough chest pain and shortness of breath. Positive for lower extremity swelling which improved with Lasix. Otherwise negative. Family history: Patient's father suffered with lung cancer, mother had diabetes. Social history: Patient says she cut down to smoking one pack of cigarettes a day currently. Smokes marijuana occasionally, denies IV drug use. Denies alcohol abuse. Past Med Surg Social Fam HX - Past Medical History Medical history: arthritis, asthma, COPD, fibromyalgia, GERD, migraine, osteoporosis, renal disease, other Psychiatric history: anxiety, bipolar, depression, other - Past Surgical History Surgical History: other (Bronchoscopy. Right lung biopsy s/p thoracotomy s/p chest-tube placement/removal. Colectomy adenoidectomy. EGD. Laparoscopic tubal ligation. Coagulation with bipolar cautery. LEEP conization. Condylomata removal and partial vulvectomy) - Social History Smoking Status: Current every day smoker Smokeless Tobacco Status: No Alcohol use: occasionally Drug use: marijuana, other - Family History Mother Family Member Ethnicity: Non- Living Status: Still Living Hx Family Cardiac Disorders: Yes (Htn, Hyperlipidemia) Hx Family Respiratory Disorders: No Hx Family Cancer: No Hx Family GI Disorders: Yes (Hiatel hernia, GERD) Hx Family Endocrine Disorder: Yes (DM) Hx Family Neuromuscular Disorders: No Hx Family Neurologic Disorders: No Hx Family HEENT Disorders: No Hx Family Autoimmune Disorders: No Internal Medicine - H&P: Meds ARIPiprazole [Abilify] 30 mg PO DAILY 10/01/14 [History] DULoxetine [Cymbalta] 60 mg PO BID 10/01/14 [History] Fluticasone/Salmeterol [Advair 500-50 Diskus] 1 puff IH BID 10/01/14 [History] Naproxen [Naprosyn] 500 mg PO BID 5 Days tablet 09/04/15 [Rx] Ipratropium/Albuterol Neb [Duoneb] 3 ml IH Q6HR PRN 02/03/16 [History] Oxygen 4 l NS CONT 02/03/16 [History] Tiotropium [place] [Spiriva Respimat] 2 puff IH DAILY 02/03/16 [History] Baclofen [Lioresal] 10 mg PO TID 04/19/16 [History] OxyCODONE/APAP 10/325 [Percocet 10/325 MG] 1 each PO Q6HR PRN #30 tablet [Rx] Albuterol Sulfate [Albuterol Inhaler] 2 puff IH Q4HR #1 hfa.aer.ad 07/26/16 [Rx] Pantoprazole Sodium [Protonix] 40 mg PO BID 08/26/16 [History] Varenicline Tartrate [Chantix] 1 mg PO DAILY 08/26/16 [History] 3 Allergy/AdvReac Type Severity Reaction Status Date / Time ketorolac [From Toradol] Allergy Intermediate Weakness Verified 01/08/17 20:40 Pneumococcal Vaccine Allergy Intermediate Rash Verified 01/08/17 20:40 [From Prevnar] tramadol Allergy Intermediate Weakness Verified 01/08/17 20:40 Cefaclor Allergy Rash Verified 01/08/17 20:40 Asenapine [From Saphris] AdvReac See Verified 01/08/17 20:40 Comments lamotrigine [From Lamictal] AdvReac Migraine Verified 01/08/17 20:40 lurasidone [From Latuda] AdvReac See Verified 01/08/17 20:40 Comments All Systems PM: A 10-system review of systems was performed and is negative for pertinent findings except as documented above in the HPI. - Constitutional Vitals: Temp Pulse Resp BP Pulse Ox 98.4 F 93 21 131/88 97 01/08/17 20:36 01/08/17 20:36 01/08/17 21:42 01/08/17 20:36 01/08/17 21:42 General appearance: Present: A&O X 3, morbidly obese - Eye Eye exam: Present: PERRL, conjuntiva pink, sclera anicteric Pupils: Present: PERRL - Respiratory Respiratory exam: Present: decreased breath sounds, wheezes. Absent: accessory muscle use, rales, rhonchi - Cardiovascular Cardiovascular exam: Present: RRR, +S1, +S2. Absent: diastolic murmur, gallop, rubs, systolic murmur - GI/Abdominal GI/Abdominal exam: Present: normal bowel sounds, soft, no peritoneal signs. Absent: distended, tenderness - Extremities Exam Extremities exam: Present: warm, radial pulses palpable and symmetrical. Absent : calf tenderness, cyanotic, pedal edema - Skin Skin exam: Present: dry, intact Internal Med - H&P Results - Labs CBC & Chem 7: 01/08/17 22:14 01/08/17 22:14 - ABG Interpretation ABG results: 01/08/17 23:12 VBG pH 7.34 VBG pCO2 50 VBG pO2 67 H VBG HCO3 27 - EKG Data -: EKG Interpreted by Myself EKG shows normal: sinus rhythm, intervals, ST-T waves Rate: normal
[2017-01-08] MEDS ORDERED: Ondansetron 4 MG/2 ML VIAL IVP PRN (23:39)
[2017-01-08] MEDS ORDERED: Naloxone 0.4 MG/ML INJ IVP PRN (23:39)
[2017-01-08] MEDS ORDERED: Acetaminophen 325 MG TABLET PO PRN (23:39)
[2017-01-08] MEDS ORDERED: *HR* OxyCODONE Immed Rel 5 MG TABLET PO PRN (23:39)
[2017-01-08] MEDS ORDERED: Albuterol 2.5 MG/3 ML NEBULIZER IH PRN (23:42)
[2017-01-09] MEDS: methylPREDNISolone 125 MG/2 ML VIAL IVP SCH ×3 (00:06→12:19)
[2017-01-09] MEDS: Ipratropium/Albuterol Neb 3 ML IH SCH ×4 (03:35→12:17)
[2017-01-09 04:11] LABS: Basophils % 0.2 %; Eosinophils % 0.1 %; Hematocrit 38.6 % (35.3-44.9); Hemoglobin 12.2 g/dL (11.5-15.4); Immature Granulocytes % 0.4 % (0-4); Lymphocytes # 0.9 K/mcL (0.6-4.6); Lymphocytes % 11.4 %; Mean Corpuscular HGB Conc 31.6 g/dL (31.6-35.5); Mean Corpuscular Volume 88.5 fL (83.0-100.0); Mean Platelet Volume 9.2 fL (9.4-12.4); Monocytes # 0.1 K/mcL (0.0-1.3); Monocytes % 0.9 %; Neutrophils # 7.1 K/mcL (1.6-8.9); Platelet Count 255 K/mcL (140-400); Red Blood Count 4.36 M/mcL (3.82-4.97); Red Cell Distribution Width 14.7 % (11.5-14.5)
[2017-01-09 04:30] LABS: BUN/Creatinine Ratio 7 (6-26); Blood Urea Nitrogen 7 mg/dL (7-20); Carbon Dioxide 23 mEq/L (19-29); Chloride 104 mEq/L (98-109); Glucose 140 mg/dL (70-99); Osmolality,Calculated 284 (280-300); Potassium 4.7 mEq/L (3.5-4.5); Sodium 137 mEq/L (136-145); eGFR For African Americans > 60 (> 60); eGFR For Non-African Americans > 60 (> 60)
[2017-01-09 06:39] LABS: Adenovirus Not Detected (Not Detect); Bordetella Pertussis Not Detected (Not Detect); Chlamydophila pneumoniae Not Detected (Not Detect); Coronavirus 229E Not Detected (Not Detect); Coronavirus HKU1 Not Detected (Not Detect); Coronavirus NL63 Not Detected (Not Detect); Coronavirus OC43 Not Detected (Not Detect); Human Metapneumovirus Not Detected (Not Detect); Human Rhinovirus/Enterovirus Not Detected (Not Detect); Influenza A Subtype 2009 H1 Not Detected (Not Detect); Influenza A Untypeable Not Detected (Not Detect); Influenza B Not Detected (Not Detect); Mycoplasma pneumoniae Not Detected (Not Detect); Parainfluenza Virus 1 Not Detected (Not Detect); Parainfluenza Virus 2 Not Detected (Not Detect); Parainfluenza Virus 3 Not Detected (Not Detect); Parainfluenza Virus 4 Not Detected (Not Detect); Respiratory Syncytial Virus Not Detected (Not Detect)
[2017-01-09] MEDS ORDERED: ARIPiprazole 10 MG TABLET PO SCH (09:00)
[2017-01-09] MEDS ORDERED: Baclofen 10 MG TABLET PO SCH (09:00)
[2017-01-09] MEDS ORDERED: Budesonide/Formoterol 160/4.5 MDI IH SCH (10:00)
--- NOTE | 2017-01-09 15:07 | Discharge Summary ---
Date of Encounter: 01/09/17 Time of Encounter: 11:00 - Discharge Medications Home Medications: ARIPiprazole [Abilify] 30 mg PO DAILY 10/01/14 [History] DULoxetine [Cymbalta] 60 mg PO BID 10/01/14 [History] Fluticasone/Salmeterol [Advair 500-50 Diskus] 1 puff IH BID 10/01/14 [History] Naproxen [Naprosyn] 500 mg PO BID 5 Days tablet 09/04/15 [Rx] Ipratropium/Albuterol Neb [Duoneb] 3 ml IH Q6HR PRN 02/03/16 [History] Oxygen 4 l NS CONT 02/03/16 [History] Tiotropium [place] [Spiriva Respimat] 2 puff IH DAILY 02/03/16 [History] Baclofen [Lioresal] 10 mg PO TID 04/19/16 [History] OxyCODONE/APAP 10/325 [Percocet 10/325 MG] 1 each PO Q6HR PRN #30 tablet [Rx] Albuterol Sulfate [Albuterol Inhaler] 2 puff IH Q4HR #1 hfa.aer.ad 07/26/16 [Rx] Pantoprazole Sodium [Protonix] 40 mg PO BID 08/26/16 [History] Varenicline Tartrate [Chantix] 1 mg PO DAILY 08/26/16 [History] Allergies/Adverse Reactions: 3 Allergy/AdvReac Type Severity Reaction Status Date / Time ketorolac [From Toradol] Allergy Intermediate Weakness Verified 01/08/17 20:40 Pneumococcal Vaccine Allergy Intermediate Rash Verified 01/08/17 20:40 [From Prevnar] tramadol Allergy Intermediate Weakness Verified 01/08/17 20:40 Cefaclor Allergy Rash Verified 01/08/17 20:40 Asenapine [From Saphris] AdvReac See Verified 01/08/17 20:40 Comments lamotrigine [From Lamictal] AdvReac Migraine Verified 01/08/17 20:40 lurasidone [From Latuda] AdvReac See Verified 01/08/17 20:40 Comments Date of admission: 01/08/17 23:04 Primary care physician: Mervin Santiago MD - Patient Status Disposition: Home, Self-Care Condition: Fair - Discharge Instructions Forms: Work/School Release Hospital course: Patient is a 36-year-old female with past medical history significant for COPD, chronic hypoxic respiratory failure (interstitial pulmonary fibrosis) on oxygen at 4 L/m continuously and chronic tobacco smoker who presented to the ER on with back spasms. Patient reported of upper back discomfort and states she was concerned that she had pneumonia and wanted to come in to the ER for evaluation. Patient denied ever having any chest pain on examination. During patients hospital stay, patient had negative cardiac biomarkers and ACS was ruled out. X-ray showed no signs of infiltrates and patient is currently on baseline O2 requirements. She will be discharged to follow up with primary care provider. - Time Spent with Patient Total time spent providing and/or coordinating discharge services: Less than 30 minutes - Constitutional Vitals: Temp Pulse Resp BP Pulse Ox 97.9 F 100 16 160/81 96 01/09/17 11:40 01/09/17 11:40 01/09/17 12:20 01/09/17 11:40 01/09/17 12:20 General appearance: Present: A&O X 3, morbidly obese - Respiratory Respiratory exam: Present: CTAB. Absent: accessory muscle use, rales, rhonchi, wheezes
[2017-01-09 15:25] VITALS: BP 133/86
--- NOTE | 2017-01-10 10:56 | Electrocardiograph Report ---
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
== END 2017-01-09 15:32 | disposition home or self-care (01) ==
LOC: 3BNU 20:18 → EMEROO 20:18 → 3BNU 23:05
PROVIDERS: ADMIT Internal Medicine; ATTEND Registered Nurse

== ENCOUNTER 2017-07-28 17:44 | Observation (INO) ==
[2017-07-28] MEDS ORDERED: Ipratropium/Albuterol Neb 3 ML IH ONE (18:10)
[2017-07-28] MEDS ORDERED: methylPREDNISolone 125 MG/2 ML VIAL IVP ONE (18:10)
--- NOTE | 2017-07-28 18:27 | Emergency Department Note ---
Disposition Clinical Impression: Acute exacerbation of chronic obstructive airways disease Disposition: Admitted As Inpatient Condition: Good General Adult HPI - General Chief complaint: ED Shortness of Breath/Dyspnea Stated complaint: COPD exacerbation Time Seen by Provider: 07/28/17 17:58 Source: patient Limitations: no limitations - History of Present Illness Pain Scale: 7 - Related Data Home Medications Medication Instructions Recorded Confirmed ARIPiprazole [Abilify] 30 mg PO DAILY 10/01/14 07/28/17 DULoxetine [Cymbalta] 60 mg PO BID 10/01/14 07/28/17 Ipratropium/Albuterol Neb [Duoneb] 3 ml IH Q6HR PRN 02/03/16 07/28/17 Oxygen 4 l NS CONT 02/03/16 07/28/17 Tiotropium [place] [Spiriva 2 puff IH DAILY 02/03/16 07/28/17 Respimat] Baclofen [Lioresal] 10 mg PO TID 04/19/16 07/28/17 Varenicline Tartrate [Chantix 1 mg PO BID 08/26/16 07/28/17 Continuing Months Pack] Budesonide/Formoterol 160/4.5 2 puff IH BIDR 07/28/17 07/28/17 [Symbicort 160/4.5] Doxycycline Hyclate [Morgidox] 100 mg PO Q12H 07/28/17 07/28/17 Fluconazole [Diflucan] 150 mg PO Q48H 07/28/17 07/28/17 Gabapentin [Neurontin] 600 mg PO TID 07/28/17 07/28/17 SUMAtriptan Succinate [Imitrex] 100 mg PO DAILY PRN 07/28/17 07/28/17 diazePAM [Valium] 5 mg PO TID 07/28/17 07/28/17 predniSONE [PredniSONE] 10 mg PO DAILY 07/28/17 07/28/17 Previous Rx's Medication Instructions Recorded Naproxen [Naprosyn] 500 mg PO BID 5 Days tablet 09/04/15 Albuterol Sulfate [Albuterol 2 puff IH Q4HR #1 hfa.aer.ad 07/26/16 Inhaler] Allergies Allergy/AdvReac Type Severity Reaction Status Date / Time ketorolac [From Toradol] Allergy Intermediate Weakness Verified 07/28/17 18:41 Pneumococcal Vaccine Allergy Intermediate Rash Verified 07/28/17 18:41 [From Prevnar] tramadol Allergy Intermediate Weakness Verified 07/28/17 18:41 Cefaclor Allergy Rash Verified 07/28/17 18:41 Asenapine [From Saphris] AdvReac See Verified 07/28/17 18:41 Comments lamotrigine [From Lamictal] AdvReac Migraine Verified 07/28/17 18:41 lurasidone [From Latuda] AdvReac See Verified 07/28/17 18:41 Comments Past Medical History - Past Medical History Medical history: Reports: arthritis, asthma, COPD, fibromyalgia, GERD, migraine , osteoporosis, renal disease, other Surgical history: Reports: other (Bronchoscopy. Right lung biopsy s/p thoracotomy s/p chest-tube placement/removal. Colectomy adenoidectomy. EGD. Laparoscopic tubal ligation. Coagulation with bipolar cautery. LEEP conization. Condylomata removal and partial vulvectomy) Psychiatric history: Reports: anxiety, bipolar, depression, other [employer] history: Reports: polycystic ovary syndrome, bilateral tubal ligation - Social History Smoking Status: Current every day smoker Smokeless Tobacco Status: No Alcohol use: Reports: occasionally Drug use: Reports: marijuana Physical Exam - General Limitations: no limitations General appearance: alert Course Vital Signs Temperature 98.8 F 07/28/17 18:00 Pulse Rate 95 07/28/17 18:00 Respiratory Rate 16 07/28/17 18:00 Blood Pressure 136/73 07/28/17 18:00 O2 Sat by Pulse Oximetry 97 07/28/17 18:00 Temperature 97.8 F 07/29/17 07:12 Pulse Rate 77 07/29/17 07:12 Respiratory Rate 16 07/29/17 07:12 Blood Pressure 107/65 07/29/17 07:12 O2 Sat by Pulse Oximetry 92 07/29/17 07:12 Oxygen Delivery Oxygen Delivery Nasal Cannula Medical Decision Making - Lab Data Result diagrams: 07/28/17 18:10 07/29/17 04:53 Lab Results 07/28/17 07/28/17 07/28/17 Range/Units 18:10 18:10 18:10 WBC 18.1 H (4.3-11.1) K/mcL RBC 4.27 (3.82-4.97) M/mcL Hgb 11.7 (11.5-15.4) g/dL Hct 36.6 (35.3-44.9) % MCV 85.7 (83.0-100.0) fL MCH 27.4 L (28.0-33.3) pg MCHC 32.0 (31.6-35.5) g/dL RDW 16.3 H (11.5-14.5) % Plt Count 283 (140-400) K/mcL MPV 8.8 L (9.4-12.4) fL Immature Gran % 0.6 (0-4) % Seg Neutrophils % 67.9 % Lymphocytes % 26.5 % Monocytes % 4.1 % Eosinophils % 0.7 % Basophils % 0.2 % Neutrophils # 12.3 H (1.6-8.9) K/mcL Lymphocytes # 4.8 H (0.6-4.6) K/mcL Monocytes # 0.8 (0.0-1.3) K/mcL Eosinophils # 0.1 (0.0-0.6) K/mcL Basophils # 0.0 (0.0-0.2) K/mcL Sodium 138 (136-145) mEq/L Potassium 3.5 (3.5-5.1) mEq/L Chloride 102 (98-107) mEq/L Carbon Dioxide 28 (23-29) mEq/L BUN 16 (6-20) mg/dL Creatinine 0.84 (0.60-1.20) mg/dL Est GFR ( Amer) > 60 (> 60) Est GFR (Non-Af Amer) > 60 (> 60) BUN/Creatinine Ratio 19 (6-26) Glucose 131 H (70-105) mg/dL Calculated Osmolality 289 (280-300) Lactic Acid (0.5-2.2) mmol/L Calcium 9.1 (8.6-10.3) mg/dL Troponin I < 0.03 (< 0.04) ng/mL B-Natriuretic Peptide 12 (Less than 100) pg/mL 07/28/17 Range/Units 19:20 WBC (4.3-11.1) K/mcL RBC (3.82-4.97) M/mcL Hgb (11.5-15.4) g/dL Hct (35.3-44.9) % MCV (83.0-100.0) fL MCH (28.0-33.3) pg MCHC (31.6-35.5) g/dL RDW (11.5-14.5) % Plt Count (140-400) K/mcL MPV (9.4-12.4) fL Immature Gran % (0-4) % Seg Neutrophils % % Lymphocytes % % Monocytes % % Eosinophils % % Basophils % % Neutrophils # (1.6-8.9) K/mcL Lymphocytes # (0.6-4.6) K/mcL Monocytes # (0.0-1.3) K/mcL Eosinophils # (0.0-0.6) K/mcL Basophils # (0.0-0.2) K/mcL Sodium (136-145) mEq/L Potassium (3.5-5.1) mEq/L Chloride (98-107) mEq/L Carbon Dioxide (23-29) mEq/L BUN (6-20) mg/dL Creatinine (0.60-1.20) mg/dL Est GFR ( Amer) (> 60) Est GFR (Non-Af Amer) (> 60) BUN/Creatinine Ratio (6-26) Glucose (70-105) mg/dL Calculated Osmolality (280-300) Lactic Acid 0.9 (0.5-2.2) mmol/L Calcium (8.6-10.3) mg/dL Troponin I (< 0.04) ng/mL B-Natriuretic Peptide (Less than 100) pg/mL Attestation Statement - Attestation Attestation: I examined this patient and my medical decision-making was reviewed with the FIELD CANE SCALE CLERK/PA/Advanced Practice Nurse/Resident Physician. I agree with the documented findings, disposition and treatment plan as described except to the extent set forth below. I did see the patient and spoke with her and examined her and she does complain of shortness of breath as well as as chest tightness which has been present and is constant for the last 1 month as well as a cough productive of yellow sputum with no improvement from her primary care physician and so the patient will be evaluated here including a chest x-ray to ensure she has no evidence of pneumonia. Regarding the pulmonary fibrosis she does have chronic hypoxemia and does use oxygen at home 3-1/2 L constantly. Her lung exam does have minimal wheezing and bilateral crackles but not localized findings. She is not in any respiratory distress in the room. No diaphoresis. I did review her EKG showing normal sinus rhythm with a rate of 90 without acute ischemic change 1826
--- NOTE | 2017-07-28 18:53 | Emergency Department Note ---
Disposition Clinical Impression: Acute exacerbation of chronic obstructive airways disease Disposition: Admitted As Inpatient Condition: Good Time of Disposition: 20:32 General Adult HPI - General Chief complaint: ED Shortness of Breath/Dyspnea Stated complaint: COPD exacerbation Time Seen by Provider: 07/28/17 17:58 Source: patient Limitations: no limitations Nursing Notes Reviewed: Yes Vital Signs Reviewed: Yes - History of Present Illness HPI Narrative: One-month history of productive cough. Failed outpatient therapy has been on doxycycline twice as well as Levaquin and steroids. Has history of COPD and interstitial pulmonary fibrosis. Is on oxygen at this time. Generally wears oxygen. Reporting shortness of breath and cough as well as chest tightness. Pain Scale: 7 - Related Data Home Medications Medication Instructions Recorded Confirmed ARIPiprazole [Abilify] 30 mg PO DAILY 10/01/14 07/28/17 DULoxetine [Cymbalta] 60 mg PO BID 10/01/14 07/28/17 Ipratropium/Albuterol Neb [Duoneb] 3 ml IH Q6HR PRN 02/03/16 07/28/17 Oxygen 4 l NS CONT 02/03/16 07/28/17 Tiotropium [place] [Spiriva 2 puff IH DAILY 02/03/16 07/28/17 Respimat] Baclofen [Lioresal] 10 mg PO TID 04/19/16 07/28/17 Varenicline Tartrate [Chantix 1 mg PO BID 08/26/16 07/28/17 Continuing Months Pack] Budesonide/Formoterol 160/4.5 2 puff IH BIDR 07/28/17 07/28/17 [Symbicort 160/4.5] Doxycycline Hyclate [Morgidox] 100 mg PO Q12H 07/28/17 07/28/17 Fluconazole [Diflucan] 150 mg PO Q48H 07/28/17 07/28/17 Gabapentin [Neurontin] 600 mg PO TID 07/28/17 07/28/17 SUMAtriptan Succinate [Imitrex] 100 mg PO DAILY PRN 07/28/17 07/28/17 diazePAM [Valium] 5 mg PO TID 07/28/17 07/28/17 predniSONE [PredniSONE] 10 mg PO DAILY 07/28/17 07/28/17 Previous Rx's Medication Instructions Recorded Naproxen [Naprosyn] 500 mg PO BID 5 Days tablet 09/04/15 Albuterol Sulfate [Albuterol 2 puff IH Q4HR #1 hfa.aer.ad 07/26/16 Inhaler] Allergies Allergy/AdvReac Type Severity Reaction Status Date / Time ketorolac [From Toradol] Allergy Intermediate Weakness Verified 07/28/17 18:41 Pneumococcal Vaccine Allergy Intermediate Rash Verified 07/28/17 18:41 [From Prevnar] tramadol Allergy Intermediate Weakness Verified 07/28/17 18:41 Cefaclor Allergy Rash Verified 07/28/17 18:41 Asenapine [From Saphris] AdvReac See Verified 07/28/17 18:41 Comments lamotrigine [From Lamictal] AdvReac Migraine Verified 07/28/17 18:41 lurasidone [From Latuda] AdvReac See Verified 07/28/17 18:41 Comments All systems ED: reviewed and negative except as stated. Constitutional: Denies: fever, chills ENT ED: Reports: congestion Cardiovascular: Reports: chest pain (Tightness). Denies: palpitations, syncope Respiratory: Reports: cough, dyspnea, wheezes, sputum production (Yellow-green) Gastrointestinal: Denies: abdominal pain, nausea, vomiting, diarrhea, hematemesis, melena, hematochezia Genitourinary: Denies: urgency, dysuria, frequency Integumentary: Denies: rash Past Medical History - Past Medical History Attestation: Yes The following information was validated with the patient. Source: patient Medical history: Reports: arthritis, asthma, COPD, fibromyalgia, GERD, migraine , osteoporosis, renal disease, other Surgical history: Reports: other (Bronchoscopy. Right lung biopsy s/p thoracotomy s/p chest-tube placement/removal. Colectomy adenoidectomy. EGD. Laparoscopic tubal ligation. Coagulation with bipolar cautery. LEEP conization. 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 Absent: tenderness, meningismus - Chest Chest inspection: Present: normal inspection, symmetric chest wall rise. Absent : tenderness - Respiratory Respiratory exam: Present: accessory muscle use (Mild costal retractions), other (Crackles without focality) - Cardiovascular Cardiovascular exam: Present: regular rate, normal rhythm, normal heart sounds - Abdominal Exam Abdominal exam: Present: soft, Non-Tender. Absent: rigidity, normal bowel sounds, diminished bowel sounds, organomegaly - Extremities Exam Extremities exam: Present: normal inspection, full ROM, normal capillary refill. Absent: tenderness, pedal edema - Back Exam Back exam: Present: normal inspection, full ROM. Absent: tenderness - Neurological Exam Neurological exam: Present: alert, oriented X3 - Psychiatric Psychiatric exam: Present: normal affect, normal mood - Skin Skin exam: Present: warm, dry, intact, normal color Course Course Narrative: Female patient presenting to the emergency department from her primary care physician's office for a COPD exacerbation. She states that she has been on female patient presenting to the emergency department for COPD exacerbation from her primary care physician. Patient has been on doxycycline twice as well as Levaquin with no resolution of her symptoms. She states that she is short of breath and has a productive cough. She is always on oxygen. She states that she does have a productive cough. Denies any fevers. Reports a chest tightness that is also been present for 1 month.. She does have an elevated white blood cell count. No focal infiltrate on the chest x-ray. She does appear dyspneic while resting. Has some rhonchi throughout with no focal consolidation. I spoke with the hospitalist already and he states he will place the patient on antibiotics and he will admit her to the floor. Patient does have a history of interstitial pulmonary fibrosis. We will admit her for failed outpatient therapy of COPD exacerbation. - Consultations Consultation #1: Dr Gonzalez was in the ED and states that he will admit the Pt and will follow her pending studies. Time: 18:52 Vital Signs Temperature 98.8 F 07/28/17 18:00 Pulse Rate 95 07/28/17 18:00 Respiratory Rate 16 07/28/17 18:00 Blood Pressure 136/73 07/28/17 18:00 O2 Sat by Pulse Oximetry 97 07/28/17 18:00 Temperature 98.8 F 07/28/17 18:00 Pulse Rate 95 07/28/17 18:00 Respiratory Rate 20 07/28/17 20:15 Blood Pressure 106/74 07/28/17 20:15 O2 Sat by Pulse Oximetry 97 07/28/17 18:00 Oxygen Delivery Oxygen Delivery Nasal Cannula Medical Decision Making - Medical Records Medical records reviewed: Yes I reviewed the patient's medical records. - Lab Data Lab results reviewed: Yes I reviewed the patient's lab results. Result diagrams: 07/28/17 18:10 07/28/17 18:10 Lab Results 07/28/17 07/28/17 07/28/17 Range/Units 18:10 18:10 18:10 WBC 18.1 H (4.3-11.1) K/mcL RBC 4.27 (3.82-4.97) M/mcL Hgb 11.7 (11.5-15.4) g/dL Hct 36.6 (35.3-44.9) % MCV 85.7 (83.0-100.0) fL MCH 27.4 L (28.0-33.3) pg MCHC 32.0 (31.6-35.5) g/dL RDW 16.3 H (11.5-14.5) % Plt Count 283 (140-400) K/mcL MPV 8.8 L (9.4-12.4) fL Immature Gran % 0.6 (0-4) % Seg Neutrophils % 67.9 % Lymphocytes % 26.5 % Monocytes % 4.1 % Eosinophils % 0.7 % Basophils % 0.2 % Neutrophils # 12.3 H (1.6-8.9) K/mcL Lymphocytes # 4.8 H (0.6-4.6) K/mcL Monocytes # 0.8 (0.0-1.3) K/mcL Eosinophils # 0.1 (0.0-0.6) K/mcL Basophils # 0.0 (0.0-0.2) K/mcL Sodium 138 (136-145) mEq/L Potassium 3.5 (3.5-5.1) mEq/L Chloride 102 (98-107) mEq/L Carbon Dioxide 28 (23-29) mEq/L BUN 16 (6-20) mg/dL Creatinine 0.84 (0.60-1.20) mg/dL Est GFR ( Amer) > 60 (> 60) Est GFR (Non-Af Amer) > 60 (> 60) BUN/Creatinine Ratio 19 (6-26) Glucose 131 H (70-105) mg/dL Calculated Osmolality 289 (280-300) Lactic Acid (0.5-2.2) mmol/L Calcium 9.1 (8.6-10.3) mg/dL Troponin I < 0.03 (< 0.04) ng/mL B-Natriuretic Peptide 12 (Less than 100) pg/mL 07/28/17 Range/Units 19:20 WBC (4.3-11.1) K/mcL RBC (3.82-4.97) M/mcL Hgb (11.5-15.4) g/dL Hct (35.3-44.9) % MCV (83.0-100.0) fL MCH (28.0-33.3) pg MCHC (31.6-35.5) g/dL RDW (11.5-14.5) % Plt Count (140-400) K/mcL MPV (9.4-12.4) fL Immature Gran % (0-4) % Seg Neutrophils % % Lymphocytes % % Monocytes % % Eosinophils % % Basophils % % Neutrophils # (1.6-8.9) K/mcL Lymphocytes # (0.6-4.6) K/mcL Monocytes # (0.0-1.3) K/mcL Eosinophils # (0.0-0.6) K/mcL Basophils # (0.0-0.2) K/mcL Sodium (136-145) mEq/L Potassium (3.5-5.1) mEq/L Chloride (98-107) mEq/L Carbon Dioxide (23-29) mEq/L BUN (6-20) mg/dL Creatinine (0.60-1.20) mg/dL Est GFR ( Amer) (> 60) Est GFR (Non-Af Amer) (> 60) BUN/Creatinine Ratio (6-26) Glucose (70-105) mg/dL Calculated Osmolality (280-300) Lactic Acid 0.9 (0.5-2.2) mmol/L Calcium (8.6-10.3) mg/dL Troponin I (< 0.04) ng/mL B-Natriuretic Peptide (Less than 100) pg/mL - Radiology Data Radiology results reviewed: Yes I reviewed the patient's radiology results. Chest X-Ray 07/28/17 18:11 IMPRESSION: No acute abnormality. D/ / 07/28/2017 18:41:55 Giancarlo Mark MD / [facility] Interpreting Provider: Giancarlo Mark MD - EKG Data EKG #1 EKG attestation: Yes I reviewed and interpreted this EKG.
[2017-07-28 19:31] LABS: Basophils % 0.2 %; Eosinophils # 0.1 K/mcL (0.0-0.6); Eosinophils % 0.7 %; Hematocrit 36.6 % (35.3-44.9); Hemoglobin 11.7 g/dL (11.5-15.4); Immature Granulocytes % 0.6 % (0-4); Lymphocytes # 4.8 K/mcL (0.6-4.6); Lymphocytes % 26.5 %; Mean Corpuscular Hemoglobin 27.4 pg (28.0-33.3); Mean Corpuscular Volume 85.7 fL (83.0-100.0); Mean Platelet Volume 8.8 fL (9.4-12.4); Monocytes # 0.8 K/mcL (0.0-1.3); Monocytes % 4.1 %; Neutrophils # 12.3 K/mcL (1.6-8.9); Platelet Count 283 K/mcL (140-400); Red Blood Count 4.27 M/mcL (3.82-4.97); Red Cell Distribution Width 16.3 % (11.5-14.5); Segmented Neutrophils % 67.9 %
[2017-07-28 19:53] LABS: BUN/Creatinine Ratio 19 (6-26); Blood Urea Nitrogen 16 mg/dL (6-20); Calcium 9.1 mg/dL (8.6-10.3); Carbon Dioxide 28 mEq/L (23-29); Chloride 102 mEq/L (98-107); Glucose 131 mg/dL (70-105); Osmolality,Calculated 289 (280-300); Potassium 3.5 mEq/L (3.5-5.1); Sodium 138 mEq/L (136-145); Troponin I < 0.03 ng/mL (< 0.04); eGFR For African Americans > 60 (> 60); eGFR For Non-African Americans > 60 (> 60)
[2017-07-28] MEDS ORDERED: Naloxone 0.4 MG/ML INJ IVP PRN (20:43)
[2017-07-28] MEDS ORDERED: Nicotine 21 MG PATCH.TD24 TD SCH (20:45)
--- NOTE | 2017-07-28 20:49 | Internal Med History&Physical ---
Date of Encounter: 07/28/17 Time of Encounter: 20:47 Internal Medicine - H&P: HPI Chief complaint: SOB History of present illness: Ms. Monet is a 36 year old female with a history of COPD, long-term smoking since age of 7 - 1 pack per day, recently diagnosed interstitial lung disease through a right thoracotomy in 2017 who follows up with Pulm locally, chronic respiratory failure on 3 L nasal cannula baseline who presents with acute on chronic respiratory failure. She reports symptoms of progressive shortness of breath with increased oxygen requirement up to 4-4.5 L daily due to persistent shortness of breath. She is getting winded with short exertion around the house. Shortness of breath improved with rest She continues to smoke 1 pack per day and is noncompliant on smoking cessation. She has been having rest for symptoms for last month that has not improved. Associated cough that is productive of yellow sputum. She has been managed in the outpatient with doxycycline, Levaquin and then doxycycline with steroid course to no improvement. She saw her PCP Dr. Santiago on Tuesday where it was recommended that she get admitted for inpatient treatment. EKG personally reviewed with rate of 90, normal sinus rhythm FINDINGS: Two views provided. The mediastinal and cardiac silhouettes are normal. Stable bilateral lung base linear opacities which may represent scarring. No acute consolidation. No effusion or pneumothorax. No free subdiaphragmatic air. Osseous structures appear unremarkable. XR/XR chest 2V IMPRESSION: No acute abnormality. Past Med Surg Social Fam HX - Past Medical History Medical history: arthritis, asthma, COPD, fibromyalgia, GERD, migraine, osteoporosis, renal disease, other Additional medical history: interstial lung fibrosus. Psychiatric history: anxiety, bipolar, depression, other - Past Surgical History Surgical History: other (Bronchoscopy. Right lung biopsy s/p thoracotomy s/p chest-tube placement/removal. Colectomy adenoidectomy. EGD. Laparoscopic tubal ligation. Coagulation with bipolar cautery. LEEP conization. Condylomata removal and partial vulvectomy) Additional surgical history: rt thoracotomy 03/29/16. vulvar condylomata removal. LEEP conizaton. EGD. Condyloma removal. partial vulvectomy. bronchoscopy - Social History Smoking Status: Current every day smoker Smokeless Tobacco Status: No Alcohol use: occasionally Drug use: marijuana - Family History Mother Family Member Ethnicity: Non- Living Status: Still Living Hx Family Cardiac Disorders: Yes (Htn, Hyperlipidemia) Hx Family Respiratory Disorders: No Hx Family Cancer: No Hx Family GI Disorders: Yes (Hiatel hernia, GERD) Hx Family Endocrine Disorder: Yes (DM) Hx Family Neuromuscular Disorders: No Hx Family Neurologic Disorders: No Hx Family HEENT Disorders: No Hx Family Autoimmune Disorders: No Internal Medicine - H&P: Meds ARIPiprazole [Abilify] 30 mg PO DAILY 10/01/14 [History] DULoxetine [Cymbalta] 60 mg PO BID 10/01/14 [History] Naproxen [Naprosyn] 500 mg PO BID 5 Days tablet 09/04/15 [Rx] Ipratropium/Albuterol Neb [Duoneb] 3 ml IH Q6HR PRN 02/03/16 [History] Oxygen 4 l NS CONT 02/03/16 [History] Tiotropium [place] [Spiriva Respimat] 2 puff IH DAILY 02/03/16 [History] Baclofen [Lioresal] 10 mg PO TID 04/19/16 [History] Albuterol Sulfate [Albuterol Inhaler] 2 puff IH Q4HR #1 hfa.aer.ad 07/26/16 [Rx] Varenicline Tartrate [Chantix Continuing Months Pack] 1 mg PO BID 08/26/16 [ History] Budesonide/Formoterol 160/4.5 [Symbicort 160/4.5] 2 puff IH BIDR 07/28/17 [ History] Doxycycline Hyclate [Morgidox] 100 mg PO Q12H 07/28/17 [History] Fluconazole [Diflucan] 150 mg PO Q48H 07/28/17 [History] Gabapentin [Neurontin] 600 mg PO TID 07/28/17 [History] SUMAtriptan Succinate [Imitrex] 100 mg PO DAILY PRN 07/28/17 [History] diazePAM [Valium] 5 mg PO TID 07/28/17 [History] predniSONE [PredniSONE] 10 mg PO DAILY 07/28/17 [History] 3 Allergy/AdvReac Type Severity Reaction Status Date / Time ketorolac [From Toradol] Allergy Intermediate Weakness Verified 07/28/17 18:41 Pneumococcal Vaccine Allergy Intermediate Rash Verified 07/28/17 18:41 [From Prevnar] tramadol Allergy Intermediate Weakness Verified 07/28/17 18:41 Cefaclor Allergy Rash Verified 07/28/17 18:41 Asenapine [From Saphris] AdvReac See Verified 07/28/17 18:41 Comments lamotrigine [From Lamictal] AdvReac Migraine Verified 07/28/17 18:41 lurasidone [From Latuda] AdvReac See Verified 07/28/17 18:41 Comments All Systems PM: A 10-system review of systems was performed and is negative for pertinent findings except as documented above in the HPI. Review of systems: ROS 14 point review of systems reviewed as best as possible given presentation. Pertinent positive or negative as per HPI or otherwise reviewed as negative - Constitutional Vitals: Temp Pulse Resp BP Pulse Ox 98.1 F 85 16 129/88 93 07/28/17 20:43 07/28/17 20:43 07/28/17 20:43 07/28/17 20:43 07/28/17 20:43 Exam: General - AAO x 3 Psych - Appropriate affect/speech. No agitation Eyes - TED. Eye lids intact. No scleral icterus Heart - Sinus. RRR. S1 and S2 present. No added HS/murmurs appreciated. No elevated JVD appreciated. Lung - decreased air entry b/l, No crackles, scant wheezes appreciated GI - Soft, non-tender. No hepatosplenomegaly/ascites. BS+ - No CVA/suprapubic tenderness or palpable bladder distension Skin - Intact. No rash/petechiae/ecchymosis. Warm extremities Internal Med - H&P Results - Labs CBC & Chem 7: 07/28/17 18:10 07/28/17 18:10 - Assessment and plan (1) Acute exacerbation of chronic obstructive airways disease Current Visit: Yes Status: Acute Assessment and plan: IV steroids, IV antibiotics, duoneb send RVP monitor for improvement pulse ox (2) Acute and chronic respiratory failure with hypoxia Current Visit: No Status: Acute Assessment and plan: management above (3) Interstitial lung disease Current Visit: No Status: Chronic Assessment and plan: co-morbid ILD treat COPD f/u Pulm outpatient (4) Tobacco abuse Current Visit: No Status: Acute Assessment and plan: nicotine patch. Her non-compliance is not helping her respiratory status (5) Bipolar 1 disorder Current Visit: No Status: Chronic Assessment and plan: continue med - Time Spent With Patient Total time spent is greater than 50% in coordination of care (as documented) at patient's floor/unit and/or counseling patient:
[2017-07-28] MEDS ORDERED: Ipratropium/Albuterol Neb 3 ML IH PRN (21:06)
[2017-07-28] MEDS: Baclofen 10 MG TABLET PO SCH (21:55)
[2017-07-28] MEDS: Azithromycin 500 MG in D5% in Water 250 ML IVPB SCH (21:55)
[2017-07-28] MEDS ORDERED: VARENICLINE TARTRATE 1 MG TABLET PO SCH (22:00)
[2017-07-28] MEDS: Ipratropium/Albuterol Neb 3 ML IH SCH (22:29)
[2017-07-28] MEDS: Budesonide/Formoterol 160/4.5 MDI IH SCH (22:29)
[2017-07-28] MEDS: Gabapentin 300 MG CAPSULE PO SCH (22:32)
[2017-07-28 23:55] LABS: Adenovirus Not Detected (Not Detect); Bordetella Pertussis Not Detected (Not Detect); Chlamydophila pneumoniae Not Detected (Not Detect); Coronavirus 229E Not Detected (Not Detect); Coronavirus HKU1 Not Detected (Not Detect); Coronavirus NL63 Not Detected (Not Detect); Coronavirus OC43 Not Detected (Not Detect); Human Metapneumovirus Not Detected (Not Detect); Human Rhinovirus/Enterovirus Not Detected (Not Detect); Influenza A Subtype 2009 H1 Not Detected (Not Detect); Influenza A Untypeable Not Detected (Not Detect); Influenza B Not Detected (Not Detect); Mycoplasma pneumoniae Not Detected (Not Detect); Parainfluenza Virus 1 Not Detected (Not Detect); Parainfluenza Virus 2 Not Detected (Not Detect); Parainfluenza Virus 3 Not Detected (Not Detect); Parainfluenza Virus 4 Not Detected (Not Detect); Respiratory Syncytial Virus Not Detected (Not Detect)
[2017-07-29] MEDS: Gabapentin 300 MG CAPSULE PO SCH ×5 (00:19→20:02)
[2017-07-29] MEDS: MethylPREDNISolone 40 MG/ML VIAL IVP SCH ×4 (01:14→16:53)
[2017-07-29] MEDS: Ipratropium/Albuterol Neb 3 ML IH SCH ×4 (04:07→23:06)
[2017-07-29] MEDS: *HR* Enoxaparin 40 MG/0.4 ML SYRINGE SQ SCH (05:40)
[2017-07-29 05:45] LABS: BUN/Creatinine Ratio 22 (6-26); Blood Urea Nitrogen 17 mg/dL (6-20); Calcium 9.4 mg/dL (8.6-10.3); Carbon Dioxide 25 mEq/L (23-29); Chloride 105 mEq/L (98-107); Glucose 125 mg/dL (70-105); Osmolality,Calculated 289 (280-300); Potassium 4.8 mEq/L (3.5-5.1); Sodium 138 mEq/L (136-145); eGFR For African Americans > 60 (> 60); eGFR For Non-African Americans > 60 (> 60)
[2017-07-29] MEDS: ARIPiprazole 10 MG TABLET PO SCH (08:45)
[2017-07-29] MEDS: Baclofen 10 MG TABLET PO SCH ×3 (08:45→20:01)
[2017-07-29] MEDS ORDERED: (Tiotropium Bromide [Spiriva Respimat] 2 PUFF) IH SCH (09:00)
[2017-07-29] MEDS: diazePAM 5 MG TABLET PO PRN ×2 (09:50→20:00)
[2017-07-29] MEDS: Budesonide/Formoterol 160/4.5 MDI IH SCH ×2 (10:35→23:06)
[2017-07-29 12:15] LABS: Hematocrit 37.8 % (35.3-44.9); Hemoglobin 12.1 g/dL (11.5-15.4); Immature Granulocytes % 0.6 % (0-4); Mean Corpuscular Hemoglobin 27.5 pg (28.0-33.3); Mean Corpuscular Volume 85.9 fL (83.0-100.0); Mean Platelet Volume 9.1 fL (9.4-12.4); Monocytes % 1.7 %; Platelet Count 292 K/mcL (140-400); Red Cell Distribution Width 16.3 % (11.5-14.5); Segmented Neutrophils % 92.6 %
[2017-07-29 12:16] LABS: Basophils % 0.1 %; Lymphocytes # 0.9 K/mcL (0.6-4.6); Monocytes # 0.3 K/mcL (0.0-1.3); Neutrophils # 16.5 K/mcL (1.6-8.9)
--- NOTE | 2017-07-29 12:26 | Internal Med Progress Note ---
Date of Encounter: 07/29/17 Time of Encounter: 12:26 - Assessment and plan (1) Acute exacerbation of chronic obstructive airways disease Current Visit: Yes Status: Acute Assessment and plan: One-month history of progressive shortness of breath and increasing oxygen requirement. H/o COPD and interstitial lung disease. Diagnosis of acute exacerbation of COPD in the setting of chronic respiratory failure Was being treated by PCP throughout the last month for URI, he had failed 3 course of ABX and oral steroids on 3 L nasal cannula at baseline however, requiring 4.5 L on day of admission Respiratory status improving today, patient now back to baseline 3 L NC RIP collected found to be negative Continue IV steroids, IV antibiotics, duoneb pulse ox Lovenox for DVT prophylaxis (2) Acute and chronic respiratory failure with hypoxia Current Visit: No Status: Acute Assessment and plan: see above (3) Interstitial lung disease Current Visit: No Status: Chronic Assessment and plan: History of interstitial lung disease S/P thoracotomy History of COPD, tobacco abuse-daily smoker f/u Pulm outpatient (4) Bipolar 1 disorder Current Visit: No Status: Chronic Assessment and plan: History of bipolar, continue meds, stable (5) Tobacco abuse Current Visit: No Status: Acute Assessment and plan: History of tobacco abuse, current daily smoker Discussed tobacco cessation Discussed the fact that her non-compliance is not helping her respiratory status Nicotine patch while inpatient Patient willing to consider Chantix at discharge - Time Spent With Patient Total time spent is greater than 50% in coordination of care (as documented) at patient's floor/unit and/or counseling patient: Greater than 35 minutes - Subjective Interval history: Patient seen and examined at bedside today. No acute changes overnight. Patient reporting that his shortness of breath is improving. Denies cough. - Constitutional Vitals: Temp Pulse Resp BP Pulse Ox 98.5 F 84 16 119/81 93 07/29/17 11:31 07/29/17 11:31 07/29/17 11:31 07/29/17 11:31 07/29/17 11:31 General appearance: Present: A&O X 3 - Head Head exam: Present: atraumatic, normocephalic - Eye Eye exam: Present: PERRL, conjuntiva pink, sclera anicteric Pupils: Present: PERRL - Neck Neck exam general surgery: Present: supple, trachea midline. Absent: lymphadenopathy - Respiratory Respiratory exam: Present: decreased breath sounds, CTAB, prolonged expiratory phase. Absent: accessory muscle use, rales, respiratory distress, rhonchi, wheezes - Cardiovascular Cardiovascular exam: Present: RRR, +S1, +S2. Absent: diastolic murmur, gallop, rubs, systolic murmur - GI/Abdominal GI/Abdominal exam: Present: normal bowel sounds, soft, no peritoneal signs. Absent: distended, tenderness - Extremities Exam Extremities exam: Present: normal capillary refill, normal inspection, warm, radial pulses palpable and symmetrical. Absent: calf tenderness, cyanotic, pedal edema, tenderness - Neurological Exam Neurological exam: Present: CN II-XII intact, oriented X3, no focal deficits. Absent: pronater drift, facial droop, speech deficit - Skin Skin exam: Present: dry, intact Internal Medicine: Result - Labs CBC & Chem 7: 07/29/17 11:50 07/29/17 04:53 Labs: Short CBC 07/29/17 Range/Units 11:50 WBC 17.9 H (4.3-11.1) K/mcL Hgb 12.1 (11.5-15.4) g/dL Hct 37.8 (35.3-44.9) % Plt Count 292 (140-400) K/mcL Neutrophils # 16.5 H (1.6-8.9) K/mcL BMP 07/29/17 04:53 Sodium 138 Potassium 4.8 D Chloride 105 Carbon Dioxide 25 BUN 17 Creatinine 0.76 Glucose 125 H Calcium 9.4 Consult Discharge Plan - Plan Referrals: Mervin Santiago MD [Primary Care Provider] - 08/04/17 1:00 pm (You will Pricila Wei )
[2017-07-29] MEDS ORDERED: Naloxone 0.4 MG/ML INJ IVP PRN (17:44)
[2017-07-29] MEDS: Azithromycin 500 MG in D5% in Water 250 ML IVPB SCH (20:02)
[2017-07-30] MEDS: MethylPREDNISolone 40 MG/ML VIAL IVP SCH ×2 (01:05→06:17)
[2017-07-30] MEDS: Ipratropium/Albuterol Neb 3 ML IH SCH ×2 (03:47→10:26)
[2017-07-30 04:14] LABS: Basophils % 0.1 %; Hematocrit 36.3 % (35.3-44.9); Hemoglobin 11.5 g/dL (11.5-15.4); Immature Granulocytes % 0.7 % (0-4); Mean Corpuscular HGB Conc 31.7 g/dL (31.6-35.5); Mean Corpuscular Hemoglobin 27.3 pg (28.0-33.3); Mean Platelet Volume 9.3 fL (9.4-12.4); Monocytes # 0.4 K/mcL (0.0-1.3); Monocytes % 2.4 %; Neutrophils # 15.2 K/mcL (1.6-8.9); Platelet Count 290 K/mcL (140-400); Red Blood Count 4.22 M/mcL (3.82-4.97); Red Cell Distribution Width 16.4 % (11.5-14.5); Segmented Neutrophils % 90.8 %
[2017-07-30 04:33] LABS: BUN/Creatinine Ratio 27 (6-26); Blood Urea Nitrogen 22 mg/dL (6-20); Calcium 9.3 mg/dL (8.6-10.3); Carbon Dioxide 21 mEq/L (23-29); Chloride 106 mEq/L (98-107); Glucose 141 mg/dL (70-105); Osmolality,Calculated 288 (280-300); Potassium 4.6 mEq/L (3.5-5.1); Sodium 136 mEq/L (136-145); eGFR For African Americans > 60 (> 60); eGFR For Non-African Americans > 60 (> 60)
[2017-07-30] MEDS: *HR* Enoxaparin 40 MG/0.4 ML SYRINGE SQ SCH (06:17)
[2017-07-30 07:36] VITALS: BP 151/84
[2017-07-30] MEDS: Baclofen 10 MG TABLET PO SCH (09:03)
[2017-07-30] MEDS: Gabapentin 300 MG CAPSULE PO SCH (09:03)
[2017-07-30] MEDS: ARIPiprazole 10 MG TABLET PO SCH (09:04)
[2017-07-30] MEDS: diazePAM 5 MG TABLET PO PRN (09:08)
[2017-07-30] MEDS: Budesonide/Formoterol 160/4.5 MDI IH SCH (10:26)
--- NOTE | 2017-07-30 10:54 | Discharge Summary ---
- NOTES TO OUTPATIENT PROVIDER Notes to Outpatient Provider: Uneventful hospital course, no pending workup. Patient will need a pulmonology follow-up for further assessment and evaluation. Orders not resulted at time of discharge: Pending orders 07/31/17 04:00 Basic Metabolic Panel AM 0400 Complete Blood Count [HEME] AM 0400 08/01/17 04:00 Basic Metabolic Panel AM 0400 Complete Blood Count [HEME] AM 0400 Date of Encounter: 07/30/17 Time of Encounter: 10:51 - Discharge Diagnosis (1) Acute exacerbation of chronic obstructive airways disease Priority: Primary Status: Acute Assessment and Plan: One-month history of progressive shortness of breath and increasing oxygen requirement. H/o COPD and interstitial lung disease. Diagnosis of acute exacerbation of COPD in the setting of chronic respiratory failure on 4 L nasal cannula at baseline (per patient), tolerating 4 L nasal cannula, Respiratory status continued to improve today, lungs clear prolonged expiratory phase. No wheezes noted, no cough. Patient has been afebrile greater than 48 hours, remains hemodynamically stable RIP collected found to be negative Patient will be discharged on oral azithromycin for the next 4 days, also receiving oral steroid burst 5 days Reports that she has a follow-up appointment with pulmonology in August, instructed to keep this appointment The patient was informed that she should follow-up with PCP within 1 week of discharge. Also, she was informed to return to the ED showed shortness of breath persist or worsen or should she become febrile. Patient verbalizes understanding, denies any further questions at this time. (2) Acute and chronic respiratory failure with hypoxia Priority: Secondary Status: Acute Assessment and Plan: see above (3) Interstitial lung disease Priority: Secondary Status: Chronic Assessment and Plan: History of interstitial lung disease S/P thoracotomy History of COPD, tobacco abuse-daily smoker Reports that she is willing to quit, has been taking Chantix at home off and on Patient instructed to restart Chantix and advised patient that it was not ideal to cycle off and on Chantix she would need to be titrated off per her primary care provider f/u Pulm outpatient (4) Bipolar 1 disorder Priority: Secondary Status: Chronic Assessment and Plan: History of bipolar, continue meds at ri (5) Tobacco abuse Priority: Secondary Status: Acute Assessment and Plan: History of tobacco abuse, current daily smoker Discussed tobacco cessation Discussed the fact that her non-compliance is not helping her respiratory status Patient willing to take Chantix at discharge, continue Hospital course: Ms. Monet is a 36 year old female Please see assessment and plan for hospital course Discharge discussed with: patient, nurse - Time Spent with Patient Total time spent providing and/or coordinating discharge services: Less than 30 minutes - Discharge Medications Home Medications: ARIPiprazole [Abilify] 30 mg PO DAILY 10/01/14 [History] DULoxetine [Cymbalta] 60 mg PO BID 10/01/14 [History] Naproxen [Naprosyn] 500 mg PO BID 5 Days tablet 09/04/15 [Rx] Ipratropium/Albuterol Neb [Duoneb] 3 ml IH Q6HR PRN 02/03/16 [History] Oxygen 4 l NS CONT 02/03/16 [History] Tiotropium [place] [Spiriva Respimat] 2 puff IH DAILY 02/03/16 [History] Baclofen [Lioresal] 10 mg PO TID 04/19/16 [History] Albuterol Sulfate [Albuterol Inhaler] 2 puff IH Q4HR #1 hfa.aer.ad 07/26/16 [Rx] Varenicline Tartrate [Chantix Continuing Months Pack] 1 mg PO BID 08/26/16 [ History] Budesonide/Formoterol 160/4.5 [Symbicort 160/4.5] 2 puff IH BIDR 07/28/17 [ History] Doxycycline Hyclate [Morgidox] 100 mg PO Q12H 07/28/17 [History] Fluconazole [Diflucan] 150 mg PO Q48H 07/28/17 [History] Gabapentin [Neurontin] 600 mg PO TID 07/28/17 [History] SUMAtriptan Succinate [Imitrex] 100 mg PO DAILY PRN 07/28/17 [History] diazePAM [Valium] 5 mg PO TID 07/28/17 [History] Azithromycin [Zithromax] 250 mg PO DAILY 4 Days #4 tablet 07/30/17 [Rx] PredniSONE [Jas] 40 mg PO DAILY 5 Days #5 tablet. 07/30/17 [Rx] Allergies/Adverse Reactions: 3 Allergy/AdvReac Type Severity Reaction Status Date / Time ketorolac [From Toradol] Allergy Intermediate Weakness Verified 07/28/17 18:41 Pneumococcal Vaccine Allergy Intermediate Rash Verified 07/28/17 18:41 [From Prevnar] tramadol Allergy Intermediate Weakness Verified 07/28/17 18:41 Cefaclor Allergy Rash Verified 07/28/17 18:41 Asenapine [From Saphris] AdvReac See Verified 07/28/17 18:41 Comments lamotrigine [From Lamictal] AdvReac Migraine Verified 07/28/17 18:41 lurasidone [From Latuda] AdvReac See Verified 07/28/17 18:41 Comments Date of admission: 07/28/17 19:56 Primary care physician: Mervin Santiago MD Consults: 07/29/17 09:26 Consult to Nurse Navigator [CONS] Routine Comment: COPD Discharging clinician: Ruddy Martínez Anticipated date of discharge: 07/30/17 - Constitutional Vitals: Temp Pulse Resp BP Pulse Ox 98.1 F 82 18 151/84 92 07/30/17 07:35 07/30/17 07:35 07/30/17 07:35 07/30/17 07:35 07/30/17 07:35 General appearance: Present: A&O X 3 - Head Head exam: Present: atraumatic, normocephalic - Eye Eye exam: Present: PERRL, conjuntiva pink, sclera anicteric Pupils: Present: PERRL - Neck Neck exam general surgery: Present: supple, trachea midline. Absent: lymphadenopathy - Respiratory Respiratory exam: Present: CTAB, prolonged expiratory phase. Absent: accessory muscle use, chest wall tenderness, decreased breath sounds, rales, respiratory distress, rhonchi, stridor, wheezes, tachypnea - Cardiovascular Cardiovascular exam: Present: RRR, +S1, +S2. Absent: diastolic murmur, gallop, rubs, systolic murmur - GI/Abdominal GI/Abdominal exam: Present: normal bowel sounds, soft, no peritoneal signs. Absent: distended, tenderness - Extremities Exam Extremities exam: Present: warm, radial pulses palpable and symmetrical. Absent : calf tenderness, cyanotic, pedal edema - Neurological Exam Neurological exam: Present: CN II-XII intact, oriented X3, no focal deficits. Absent: pronater drift, facial droop, speech deficit - Skin Skin exam: Present: dry, intact - Patient Status Disposition: Home, Self-Care Condition: Good Functional capacity at discharge: independent ambulation Overall status at discharge: patient is progressing back to baseline - Discharge Instructions Instructions: Chronic Obstructive Pulmonary Disease (DC), Acute Respiratory Distress Syndrome (DC) Follow Up With: Mervin Santiago MD [Primary Care Provider] - 08/04/17 1:00 pm (You will Pricila Wei ) - Diet and Activity Activity: increase activity as tolerated, resume usual activities as tolerated Diet: advance to your usual diet, diabetic diet, low fat, low cholesterol
--- NOTE | 2017-08-01 06:37 | Electrocardiograph Report ---
[address] [place], [place] [address] Test Date: 2017-07-28 Pat Name: Kim Monet Department: 104 Room: 3B Gender: F Cold Patcher: MATTHEW : 1980 Requested By: Ariana Casey Order Number: [id number] Reading MD: Aquilino Benoit Measurements Intervals [place] Rate: 90 P: -7 AK: 122 QRS: 31 QRSD: 85 T: 45 QT: 335 QTc: 382 Interpretive Statements SINUS RHYTHM BASELINE ARTIFACT Electronically Signed On 08-01-2017 6:35:37 EDT by Aquilino Benoit
== END 2017-07-30 12:10 | disposition home or self-care (01) ==
LOC: EMEROO 17:44 → 3BNU 17:44
PROVIDERS: ADMIT Nurse Practitioner; ATTEND Internal Medicine Hematology & Oncology

== ENCOUNTER 2017-10-10 14:37 | Inpatient (IN) ==
[2017-10-10] MEDS ORDERED: Ipratropium/Albuterol Neb 3 ML IH ONE (15:36)
[2017-10-10] MEDS ORDERED: methylPREDNISolone 125 MG/2 ML VIAL IVP ONE (15:36)
[2017-10-10] MEDS ORDERED: Piperacillin/Tazobactam 3.375 GM in Water for inj. (sterile) 20 ML 20 ML IVPB ONE ×2 (15:38→16:44)
--- NOTE | 2017-10-10 15:58 | Emergency Department Note ---
Disposition Clinical Impression: Atypical pneumonia, Shortness of breath, Smoking, HCAP (healthcare-associated pneumonia), Failure of outpatient treatment, Acute and chronic respiratory failure ([id number]) Disposition: Still a Patient Condition: Good Time of Disposition: 16:42 SOB HPI - General Chief Complaint: ED Shortness of Breath/Dyspnea Stated Complaint: Pneumonia Time Seen by Provider: 10/10/17 15:21 Nursing Notes Reviewed: Yes Vital Signs Reviewed: Yes - History of Present Illness 36-year-old female with history of COPD and pulmonary fibrosis on 4 L nasal cannula continuous at baseline presents from pulmonology office for admission for pneumonia failed outpatient therapy. Patient follows with edema pulmonology. Chest x-ray today at their office demonstrated pneumonia. She has been on a complete course of Levaquin followed by a complete course of doxycycline followed by her reevaluation at their office today. She has had zita and then prednisone. She continues to have dyspnea with continued demonstration of pneumonia. Patient was hospitalized previously for pneumonia phalanx patient therapy and improved on IV antibiotics. PMH: COPD, pulmonary fibrosis ROS: Positive: As above Negative: Fever,, vomiting, chest pain, palpitations, diaphoresis or abdominal pain, unusual back pain - Related Data Home Medications Medication Instructions Recorded Confirmed ARIPiprazole [Abilify] 30 mg PO DAILY 10/01/14 10/10/17 DULoxetine [Cymbalta] 60 mg PO BID 10/01/14 10/10/17 Ipratropium/Albuterol Neb [Duoneb] 3 ml IH Q6HR PRN 02/03/16 10/10/17 Oxygen 4 l NS CONT 02/03/16 10/10/17 Tiotropium [place] [Spiriva 2 puff IH DAILY 02/03/16 10/10/17 Respimat] Baclofen [Lioresal] 10 mg PO TID 04/19/16 10/10/17 Budesonide/Formoterol 160/4.5 2 puff IH BIDR 07/28/17 10/10/17 [Symbicort 160/4.5] SUMAtriptan Succinate [Imitrex] 100 mg PO DAILY PRN 07/28/17 10/10/17 Esomeprazole Magnesium [Nexium] 40 mg PO DAILY 10/10/17 10/10/17 Gabapentin [Neurontin] 800 mg PO QID 10/10/17 10/10/17 Meloxicam [Meloxicam] 15 mg PO DAILY PRN 10/10/17 10/10/17 Previous Rx's Medication Instructions Recorded Naproxen [Naprosyn] 500 mg PO BID 5 Days tablet 09/04/15 Albuterol Sulfate [Albuterol 2 puff IH Q4HR #1 hfa.aer.ad 07/26/16 Inhaler] Allergies Allergy/AdvReac Type Severity Reaction Status Date / Time ketorolac [From Toradol] Allergy Intermediate Weakness Verified 07/28/17 18:41 Pneumococcal Vaccine Allergy Intermediate Rash Verified 07/28/17 18:41 [From Prevnar] tramadol Allergy Intermediate Weakness Verified 07/28/17 18:41 Cefaclor Allergy Rash Verified 07/28/17 18:41 Asenapine [From Saphris] AdvReac See Verified 07/28/17 18:41 Comments lamotrigine [From Lamictal] AdvReac Migraine Verified 07/28/17 18:41 lurasidone [From Latuda] AdvReac See Verified 07/28/17 18:41 Comments All systems ED: reviewed and negative except as stated. Review of Systems: As Per HPI Past Medical History - Past Medical History Medical history: Reports: arthritis, asthma, COPD, fibromyalgia, GERD, migraine , osteoporosis, renal disease, other Surgical history: Reports: other (Bronchoscopy. Right lung biopsy s/p thoracotomy s/p chest-tube placement/removal. Colectomy adenoidectomy. EGD. Laparoscopic tubal ligation. Coagulation with bipolar cautery. LEEP conization. 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 Head: atraumatic, normocephalic Eye: normal appearance, no scleral icterus, no conjunctival injection ENT: mucous membranes moist, normal external ear exam Neck: normal inspection, trachea midline, full ROM Chest: normal inspection, symmetric chest rise Respiratory: Good respiratory effort. dextro phase. Poor air entry to the bilateral lung bases. Bilateral breath sounds have diffuse coarse wheeze. Diminished left lower lobe auscultation. Cardiovascular: Regular rate and rhythm. No clicks, rubs, gallops, or murmors. Normal heart sounds. Abdomen: Bowel sounds present normoactive x-4 quadrants. Abdomen is soft, nondistended, and nontender. No guarding or rebound. No organomegaly noted. Musculoskeletal: Spontaneously moving all extremities. Skin: warm, dry, intact. Neuro: Alert and oriented x4. Sensation light touch intact. Psych: Patient's affect is appropriate for situation. Course Course Narrative: Outpatient single view chest x-ray today XR/XR chest 1V IMPRESSION: 1. Stable appearance of reticular opacities involving the mid and lower lung zones. Findings are favored to represent mild interstitial edema versus atypical infection. D/ / 10/10/2017 15:47:44 Rebecca Lindsey MD / amanda Interpreting Provider: Rebecca Lindsey MD Will begin empiric antibodies for healthcare session pneumonia given her recent admission. Steroids. Duo nebs. Admission for continued pulmonary support. Discussed the patient with the admitting hospitalist who agrees to accept the patient for continued evaluation and management for healthcare associated pneumonia. EKG dated 10/10/09 15:33 interpreted as sinus rhythm with rate of 81. When necessary 25. QTC 448. Normal axis. Nonspecific ST-T changes. Compared to previous EKG dated 07/28/2017 showing no acute ischemic changes or comparison. Vital Signs Temperature 98.4 F 10/10/17 15:00 Pulse Rate 87 10/10/17 15:00 Respiratory Rate 20 10/10/17 15:00 Blood Pressure 123/81 10/10/17 15:00 O2 Sat by Pulse Oximetry 92 10/10/17 15:00 Temperature 97.4 F L 10/10/17 23:36 Pulse Rate 85 10/10/17 23:36 Respiratory Rate 19 10/10/17 23:36 Blood Pressure 132/82 10/10/17 23:36 O2 Sat by Pulse Oximetry 92 10/10/17 23:36 Oxygen Delivery Oxygen Delivery Nasal Cannula Shortness of Breath/Dyspnea - Lab Data Result diagrams: 10/10/17 15:38 10/10/17 15:38 Lab Results 10/10/17 10/10/17 10/10/17 Range/Units 15:38 15:38 15:38 WBC 12.1 H (4.3-11.1) K/mcL RBC 4.07 (3.82-4.97) M/mcL Hgb 11.1 L (11.5-15.4) g/dL Hct 35.2 L (35.3-44.9) % MCV 86.5 (83.0-100.0) fL MCH 27.3 L (28.0-33.3) pg MCHC 31.5 L (31.6-35.5) g/dL RDW 16.8 H (11.5-14.5) % Plt Count 253 (140-400) K/mcL MPV 9.1 L (9.4-12.4) fL Immature Gran % 0.3 (0-4) % Seg Neutrophils % 56.7 % Lymphocytes % 36.0 % Monocytes % 5.4 % Eosinophils % 1.2 % Basophils % 0.4 % Neutrophils # 6.9 (1.6-8.9) K/mcL Lymphocytes # 4.4 (0.6-4.6) K/mcL Monocytes # 0.7 (0.0-1.3) K/mcL Eosinophils # 0.2 (0.0-0.6) K/mcL Basophils # 0.1 (0.0-0.2) K/mcL Sodium 137 (136-145) mEq/L Potassium 3.4 L (3.5-5.1) mEq/L Chloride 103 (98-107) mEq/L Carbon Dioxide 28 (23-29) mEq/L BUN 11 (6-20) mg/dL Creatinine 0.88 (0.60-1.20) mg/dL Est GFR ( Amer) > 60 (> 60) Est GFR (Non-Af Amer) > 60 (> 60) BUN/Creatinine Ratio 13 (6-26) Glucose 100 (70-105) mg/dL Calculated Osmolality 283 (280-300) Lactic Acid 2.1 (0.5-2.2) mmol/L Calcium 9.1 (8.6-10.3) mg/dL Troponin I 0.07 H* (< 0.04) ng/mL B-Natriuretic Peptide (Less than 100) pg/mL 10/10/17 Range/Units 15:38 WBC (4.3-11.1) K/mcL RBC (3.82-4.97) M/mcL Hgb (11.5-15.4) g/dL Hct (35.3-44.9) % MCV (83.0-100.0) fL MCH (28.0-33.3) pg MCHC (31.6-35.5) g/dL RDW (11.5-14.5) % Plt Count (140-400) K/mcL MPV (9.4-12.4) fL Immature Gran % (0-4) % Seg Neutrophils % % Lymphocytes % % Monocytes % % Eosinophils % % Basophils % % Neutrophils # (1.6-8.9) K/mcL Lymphocytes # (0.6-4.6) K/mcL Monocytes # (0.0-1.3) K/mcL Eosinophils # (0.0-0.6) K/mcL Basophils # (0.0-0.2) K/mcL Sodium (136-145) mEq/L Potassium (3.5-5.1) mEq/L Chloride (98-107) mEq/L Carbon Dioxide (23-29) mEq/L BUN (6-20) mg/dL Creatinine (0.60-1.20) mg/dL Est GFR ( Amer) (> 60) Est GFR (Non-Af Amer) (> 60) BUN/Creatinine Ratio (6-26) Glucose (70-105) mg/dL Calculated Osmolality (280-300) Lactic Acid (0.5-2.2) mmol/L Calcium (8.6-10.3) mg/dL Troponin I (< 0.04) ng/mL B-Natriuretic Peptide 93 (Less than 100) pg/mL
[2017-10-10 16:01] LABS: Basophils # 0.1 K/mcL (0.0-0.2); Basophils % 0.4 %; Eosinophils # 0.2 K/mcL (0.0-0.6); Eosinophils % 1.2 %; Hematocrit 35.2 % (35.3-44.9); Hemoglobin 11.1 g/dL (11.5-15.4); Immature Granulocytes % 0.3 % (0-4); Lymphocytes # 4.4 K/mcL (0.6-4.6); Mean Corpuscular HGB Conc 31.5 g/dL (31.6-35.5); Mean Corpuscular Hemoglobin 27.3 pg (28.0-33.3); Mean Corpuscular Volume 86.5 fL (83.0-100.0); Mean Platelet Volume 9.1 fL (9.4-12.4); Monocytes # 0.7 K/mcL (0.0-1.3); Monocytes % 5.4 %; Neutrophils # 6.9 K/mcL (1.6-8.9); Platelet Count 253 K/mcL (140-400); Red Blood Count 4.07 M/mcL (3.82-4.97); Red Cell Distribution Width 16.8 % (11.5-14.5); Segmented Neutrophils % 56.7 %
[2017-10-10 16:21] LABS: BUN/Creatinine Ratio 13 (6-26); Blood Urea Nitrogen 11 mg/dL (6-20); Calcium 9.1 mg/dL (8.6-10.3); Carbon Dioxide 28 mEq/L (23-29); Chloride 103 mEq/L (98-107); Glucose 100 mg/dL (70-105); Osmolality,Calculated 283 (280-300); Potassium 3.4 mEq/L (3.5-5.1); Sodium 137 mEq/L (136-145); eGFR For Non-African Americans > 60 (> 60)
[2017-10-10 16:26] LABS: Troponin I 0.07 ng/mL (< 0.04)
--- NOTE | 2017-10-10 16:41 | Emergency Department Note ---
Disposition Clinical Impression: Atypical pneumonia, Shortness of breath, Smoking Disposition: Admitted As Inpatient Forms: ED Satisfaction Letter General Adult HPI - General Chief complaint: ED Shortness of Breath/Dyspnea Stated complaint: Pneumonia Time Seen by Provider: 10/10/17 15:21 - History of Present Illness Pain Scale: 7 - Related Data Home Medications Medication Instructions Recorded Confirmed ARIPiprazole [Abilify] 30 mg PO DAILY 10/01/14 10/10/17 DULoxetine [Cymbalta] 60 mg PO BID 10/01/14 10/10/17 Ipratropium/Albuterol Neb [Duoneb] 3 ml IH Q6HR PRN 02/03/16 10/10/17 Oxygen 4 l NS CONT 02/03/16 10/10/17 Tiotropium [place] [Spiriva 2 puff IH DAILY 02/03/16 10/10/17 Respimat] Baclofen [Lioresal] 10 mg PO TID 04/19/16 10/10/17 Budesonide/Formoterol 160/4.5 2 puff IH BIDR 07/28/17 10/10/17 [Symbicort 160/4.5] Doxycycline Hyclate [Morgidox] 100 mg PO Q12H 07/28/17 10/10/17 SUMAtriptan Succinate [Imitrex] 100 mg PO DAILY PRN 07/28/17 10/10/17 diazePAM [Valium] 5 mg PO TID 07/28/17 10/10/17 Esomeprazole Magnesium [Nexium] 40 mg PO DAILY 10/10/17 10/10/17 Gabapentin [Neurontin] 800 mg PO QID 10/10/17 10/10/17 Meloxicam [Meloxicam] 15 mg PO DAILY PRN 10/10/17 10/10/17 Previous Rx's Medication Instructions Recorded Naproxen [Naprosyn] 500 mg PO BID 5 Days tablet 09/04/15 Albuterol Sulfate [Albuterol 2 puff IH Q4HR #1 hfa.aer.ad 07/26/16 Inhaler] Allergies Allergy/AdvReac Type Severity Reaction Status Date / Time ketorolac [From Toradol] Allergy Intermediate Weakness Verified 07/28/17 18:41 Pneumococcal Vaccine Allergy Intermediate Rash Verified 07/28/17 18:41 [From Prevnar] tramadol Allergy Intermediate Weakness Verified 07/28/17 18:41 Cefaclor Allergy Rash Verified 07/28/17 18:41 Asenapine [From Saphris] AdvReac See Verified 07/28/17 18:41 Comments lamotrigine [From Lamictal] AdvReac Migraine Verified 07/28/17 18:41 lurasidone [From Latuda] AdvReac See Verified 07/28/17 18:41 Comments Past Medical History - Past Medical History Medical history: Reports: arthritis, asthma, COPD, fibromyalgia, GERD, migraine , osteoporosis, renal disease, other Surgical history: Reports: other (Bronchoscopy. Right lung biopsy s/p thoracotomy s/p chest-tube placement/removal. Colectomy adenoidectomy. EGD. Laparoscopic tubal ligation. Coagulation with bipolar cautery. LEEP conization. 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 ovary syndrome, bilateral tubal ligation - Social History Smoking Status: Current every day smoker Smokeless Tobacco Status: No Alcohol use: Reports: occasionally Drug use: Reports: marijuana Course Vital Signs Temperature 98.4 F 10/10/17 15:00 Pulse Rate 87 10/10/17 15:00 Respiratory Rate 20 10/10/17 15:00 Blood Pressure 123/81 10/10/17 15:00 O2 Sat by Pulse Oximetry 92 10/10/17 15:00 Temperature 98.4 F 10/10/17 15:00 Pulse Rate 86 10/10/17 16:00 Respiratory Rate 19 10/10/17 16:14 Blood Pressure 109/64 10/10/17 16:00 O2 Sat by Pulse Oximetry 98 10/10/17 16:14 Oxygen Delivery Oxygen Delivery Nasal Cannula Medical Decision Making - Lab Data Result diagrams: 10/10/17 15:38 10/10/17 15:38 Lab Results 10/10/17 10/10/17 10/10/17 Range/Units 15:38 15:38 15:38 WBC 12.1 H (4.3-11.1) K/mcL RBC 4.07 (3.82-4.97) M/mcL Hgb 11.1 L (11.5-15.4) g/dL Hct 35.2 L (35.3-44.9) % MCV 86.5 (83.0-100.0) fL MCH 27.3 L (28.0-33.3) pg MCHC 31.5 L (31.6-35.5) g/dL RDW 16.8 H (11.5-14.5) % Plt Count 253 (140-400) K/mcL MPV 9.1 L (9.4-12.4) fL Immature Gran % 0.3 (0-4) % Seg Neutrophils % 56.7 % Lymphocytes % 36.0 % Monocytes % 5.4 % Eosinophils % 1.2 % Basophils % 0.4 % Neutrophils # 6.9 (1.6-8.9) K/mcL Lymphocytes # 4.4 (0.6-4.6) K/mcL Monocytes # 0.7 (0.0-1.3) K/mcL Eosinophils # 0.2 (0.0-0.6) K/mcL Basophils # 0.1 (0.0-0.2) K/mcL Sodium 137 (136-145) mEq/L Potassium 3.4 L (3.5-5.1) mEq/L Chloride 103 (98-107) mEq/L Carbon Dioxide 28 (23-29) mEq/L BUN 11 (6-20) mg/dL Creatinine 0.88 (0.60-1.20) mg/dL Est GFR ( Amer) > 60 (> 60) Est GFR (Non-Af Amer) > 60 (> 60) BUN/Creatinine Ratio 13 (6-26) Glucose 100 (70-105) mg/dL Calculated Osmolality 283 (280-300) Lactic Acid 2.1 (0.5-2.2) mmol/L Calcium 9.1 (8.6-10.3) mg/dL Troponin I 0.07 H* (< 0.04) ng/mL B-Natriuretic Peptide (Less than 100) pg/mL 10/10/17 Range/Units 15:38 WBC (4.3-11.1) K/mcL RBC (3.82-4.97) M/mcL Hgb (11.5-15.4) g/dL Hct (35.3-44.9) % MCV (83.0-100.0) fL MCH (28.0-33.3) pg MCHC (31.6-35.5) g/dL RDW (11.5-14.5) % Plt Count (140-400) K/mcL MPV (9.4-12.4) fL Immature Gran % (0-4) % Seg Neutrophils % % Lymphocytes % % Monocytes % % Eosinophils % % Basophils % % Neutrophils # (1.6-8.9) K/mcL Lymphocytes # (0.6-4.6) K/mcL Monocytes # (0.0-1.3) K/mcL Eosinophils # (0.0-0.6) K/mcL Basophils # (0.0-0.2) K/mcL Sodium (136-145) mEq/L Potassium (3.5-5.1) mEq/L Chloride (98-107) mEq/L Carbon Dioxide (23-29) mEq/L BUN (6-20) mg/dL Creatinine (0.60-1.20) mg/dL Est GFR ( Amer) (> 60) Est GFR (Non-Af Amer) (> 60) BUN/Creatinine Ratio (6-26) Glucose (70-105) mg/dL Calculated Osmolality (280-300) Lactic Acid (0.5-2.2) mmol/L Calcium (8.6-10.3) mg/dL Troponin I (< 0.04) ng/mL B-Natriuretic Peptide 93 (Less than 100) pg/mL Critical Care Time Critical Care Time: No Attestation Statement - Attestation Attestation: I examined this patient and my medical decision-making was reviewed with the Resident Physician. I agree with the documented findings, disposition and treatment plan as described except to the extent set forth below. 36-year-old female presents emergency room for shortness of breath. Patient is a history of fibrosis. She is an active smoker of 2 packs per day. X-ray shows some reticular opacities concerning for possible pneumonia. Patient will be admitted. We have started on IV antibiotics. She does have an elevated troponin at 0.07. She does not have any active chest pain. She sitting in the room in no significant distress. She does have home oxygen established. We will start her on IV antibiotics. Steroids.
[2017-10-10] MEDS ORDERED: 0.9 % Sodium Chloride Mini Bag 100 ML ONE (16:45)
[2017-10-10] MEDS ORDERED: Naloxone 0.4 MG/ML INJ IVP PRN (16:55)
[2017-10-10] MEDS ORDERED: SUMAtriptan succinate 50 MG TABLET PO PRN (16:57)
[2017-10-10] MEDS ORDERED: Potassium Chloride Elixir 20 MEQ/15 ML UDC PO ONE (16:57)
[2017-10-10] MEDS ORDERED: Aspirin 81 MG TAB.CHEW PO ONE (17:00)
--- NOTE | 2017-10-10 17:26 | Internal Med History&Physical ---
Date of Encounter: 10/10/17 Time of Encounter: 17:00 Internal Medicine - H&P: HPI Chief complaint: SOB, failed outpatient therapy Admitted From: Home History of present illness: Ms. 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 For the last few weeks, she was being managed for pneumonia/COPD exacerbation with a course of Levaquin, doxycycline, and tapering dose of steroids. She states that she had an outpatient chest x-ray done on 10/06, which was reported today to show some findings consistent with pneumonia. The findings were communicated to the ferry terminal supervisor who recommended the patient to come to the ED. she states that her shortness of breath has been about the same for the last 2-3 weeks, associated with productive cough with greenish sputum. Denies any chest pain, palpitation, orthopnea, PND, or leg swelling. Does not have fever or chills but has night sweats. No abdominal pain, nausea vomiting, change in bowel habits, or dysuria. No weakness/numbness, joint pain, or rash. In the emergency department, she was afebrile and hemodynamically stable. She was saturating well on 4 L of nasal cannula. Labs revealed white blood cell count of 12.1, potassium of 3.4, and troponin of 0.07. EKG showed normal sinus rhythm without ST elevations. Lactic acid was normal and BNP was 93. Chest x-ray done in the ED is reported to show stable reticular opacities involving the mid and lower lungs bilaterally. She was started on IV vancomycin/ Zosyn, IV Solu-Medrol, bronchodilators, and admitted for further management. Past Med Surg Social Fam HX - Past Medical History Attestation: Yes The following information was validated with the patient. Medical history: arthritis, asthma, COPD, fibromyalgia, GERD, migraine, osteoporosis, renal disease, other Additional medical history: interstial lung fibrosus. Psychiatric history: anxiety, bipolar, depression, other - Past Surgical History Surgical History: other (Bronchoscopy. Right lung biopsy s/p thoracotomy s/p chest-tube placement/removal. Colectomy adenoidectomy. EGD. Laparoscopic tubal ligation. Coagulation with bipolar cautery. LEEP conization. Condylomata removal and partial vulvectomy) Additional surgical history: rt thoracotomy 03/29/16. vulvar condylomata removal. LEEP conizaton. EGD. Condyloma removal. partial vulvectomy. bronchoscopy - Social History Smoking Status: Current every day smoker Packs per day: 2 Smokeless Tobacco Status: No Alcohol use: occasionally Drug use: marijuana - Family History Mother Family Member Ethnicity: Non- Living Status: Still Living Hx Family Cardiac Disorders: Yes (Htn, Hyperlipidemia) Hx Family Respiratory Disorders: No Hx Family Cancer: No Hx Family GI Disorders: Yes (Hiatel hernia, GERD) Hx Family Endocrine Disorder: Yes (DM) Hx Family Neuromuscular Disorders: Yes (fibromyalgia) Hx Family Neurologic Disorders: No Hx Family HEENT Disorders: No Hx Family Autoimmune Disorders: No Father Living Status: Hx Family Cancer: Yes (lung cancer) Internal Medicine - H&P: Meds ARIPiprazole [Abilify] 30 mg PO DAILY 10/01/14 [History] DULoxetine [Cymbalta] 60 mg PO BID 10/01/14 [History] Naproxen [Naprosyn] 500 mg PO BID 5 Days tablet 09/04/15 [Rx] Ipratropium/Albuterol Neb [Duoneb] 3 ml IH Q6HR PRN 02/03/16 [History] Oxygen 4 l NS CONT 02/03/16 [History] Tiotropium [place] [Spiriva Respimat] 2 puff IH DAILY 02/03/16 [History] Baclofen [Lioresal] 10 mg PO TID 04/19/16 [History] Albuterol Sulfate [Albuterol Inhaler] 2 puff IH Q4HR #1 hfa.aer.ad 07/26/16 [Rx] Budesonide/Formoterol 160/4.5 [Symbicort 160/4.5] 2 puff IH BIDR 07/28/17 [ History] Doxycycline Hyclate [Morgidox] 100 mg PO Q12H 07/28/17 [History] SUMAtriptan Succinate [Imitrex] 100 mg PO DAILY PRN 07/28/17 [History] Esomeprazole Magnesium [Nexium] 40 mg PO DAILY 10/10/17 [History] Gabapentin [Neurontin] 800 mg PO QID 10/10/17 [History] Meloxicam [Meloxicam] 15 mg PO DAILY PRN 10/10/17 [History] 3 Allergy/AdvReac Type Severity Reaction Status Date / Time ketorolac [From Toradol] Allergy Intermediate Weakness Verified 07/28/17 18:41 Pneumococcal Vaccine Allergy Intermediate Rash Verified 07/28/17 18:41 [From Prevnar] tramadol Allergy Intermediate Weakness Verified 07/28/17 18:41 Cefaclor Allergy Rash Verified 07/28/17 18:41 Asenapine [From Saphris] AdvReac See Verified 07/28/17 18:41 Comments lamotrigine [From Lamictal] AdvReac Migraine Verified 07/28/17 18:41 lurasidone [From Latuda] AdvReac See Verified 07/28/17 18:41 Comments All Systems PM: A 10-system review of systems was performed and is negative for pertinent findings except as documented above in the HPI. - Constitutional Vitals: Temp Pulse Resp BP Pulse Ox 98.4 F 86 19 109/64 98 10/10/17 16:35 10/10/17 16:35 10/10/17 16:35 10/10/17 16:35 10/10/17 16:35 Exam: General: Alert and oriented, mild respiratory distress. HEENT:EOM, pupils equal, round and reactive. Cardiovascular:Normal S1 & S2, No JVD. Pulse regular. Lungs: Equal breath sounds bilaterally, scattered wheezes at the bases. No rales/rhonchi Abdomen:Soft, non-tender, no rigidity. Extremities:No deformity or swelling Neurological:Normal cognition and motor skills. Non-focal Skin:Normal color, no rash, no lesions. Pulses:Carotid and radial pulses normal +2. Rest of the physical exam is non contributory Internal Med - H&P Results - Labs CBC & Chem 7: 10/10/17 15:38 10/10/17 15:38 - Assessment and plan (1) HCAP (healthcare-associated pneumonia) Current Visit: Yes Status: Acute Assessment and plan: Presented with shortness of breath and outpatient chest x-ray showing pneumonia Leukocytosis of 12.1. Recently admitted in July 2017 for similar problem We will treat her empirically with IV vancomycin and Zosyn IV vancomycin was not given yet at the time of interview, spoke to pharmacy to dose it 12 hours after the 1st dose IV azithromycin for atypical coverage urine strep, legionella ag Follow up on blood culture Sputum culture Pulm consult in the morning. (2) Acute exacerbation of chronic obstructive airways disease Current Visit: Yes Status: Acute Assessment and plan: Treatment per pneumonia as above IV Solu-Medrol 40 mg every 8, bronchodilators every 4 pulm consult tomorrow (3) Elevated troponin I level Current Visit: Yes Status: Acute Assessment and plan: Elevated at 0.07 in the absence of anginal symptoms and EKG changes concerning for ischemia Likely type II event in the setting of respiratory distress Loaded with aspirin Trend troponin Check for secondary risk factors Echocardiogram in the morning (4) Interstitial lung disease Current Visit: No Status: Chronic Assessment and plan: Follows with pulmonary as an outpatient Treatment per pneumonia and COPD as above May need CT chest if she does not symptomatically improve (5) Tobacco abuse Current Visit: No Status: Acute Assessment and plan: Continues to smoke 2 packs per day, and advised on smoking cessation Declines nicotine replacement therapy as she is "allergic" to it (6) Morbid obesity with BMI of 40.0-44.9, adult Current Visit: No Status: Chronic Assessment and plan: Counseled on weight loss. (7) Hypokalemia Current Visit: Yes Status: Acute Assessment and plan: Replete and monitor (8) DVT prophylaxis Current Visit: No Status: Acute Assessment and plan: Sub-cutaneous heparin - Time Spent With Patient Total time spent is greater than 50% in coordination of care (as documented) at patient's floor/unit and/or counseling patient:
[2017-10-10] MEDS ORDERED: *HR* Heparin 5,000 UNIT/ML VIAL SQ SCH (18:00)
[2017-10-10] MEDS ORDERED: Azithromycin 500 MG in D5% in Water 250 ML IVPB SCH (18:00)
[2017-10-10] MEDS: Baclofen 10 MG TABLET PO SCH (19:32)
[2017-10-10] MEDS: Gabapentin 400 MG CAPSULE PO SCH ×2 (19:33→22:20)
[2017-10-10] MEDS: Ipratropium/Albuterol Neb 3 ML IH SCH ×2 (20:11→23:29)
[2017-10-10] MEDS: Budesonide/Formoterol 160/4.5 1 PUFF INH IH SCH (20:11)
[2017-10-10] MEDS ORDERED: diazePAM 5 MG TABLET PO SCH (21:00)
[2017-10-10] MEDS: *HR* Heparin 5,000 UNIT/ML VIAL SQ SCH (22:20)
[2017-10-10] MEDS: Piperacillin/Tazobactam 3.375 GM in 0.9 % Sodium Chloride Mini Bag 100 ML IVPB SCH (23:49)
[2017-10-11] MEDS: Ipratropium/Albuterol Neb 3 ML IH SCH ×6 (03:58→23:39)
[2017-10-11] MEDS: *HR* Heparin 5,000 UNIT/ML VIAL SQ SCH ×3 (05:58→21:38)
[2017-10-11 06:49] LABS: Hematocrit 35.7 % (35.3-44.9); Hemoglobin 10.8 g/dL (11.5-15.4); Mean Corpuscular HGB Conc 30.3 g/dL (31.6-35.5); Mean Corpuscular Hemoglobin 26.9 pg (28.0-33.3); Mean Corpuscular Volume 88.8 fL (83.0-100.0); Mean Platelet Volume 9.4 fL (9.4-12.4); Platelet Count 253 K/mcL (140-400); Red Blood Count 4.02 M/mcL (3.82-4.97); Red Cell Distribution Width 16.6 % (11.5-14.5)
[2017-10-11] MEDS ORDERED: MethylPREDNISolone 40 MG/ML VIAL IVP SCH (07:00)
[2017-10-11 07:09] LABS: Chol/HDL Ratio 3.4 (0-4.9); Magnesium 2.2 mg/dL (1.6-2.6)
[2017-10-11] MEDS: ARIPiprazole 10 MG TABLET PO SCH (07:14)
[2017-10-11] MEDS: Baclofen 10 MG TABLET PO SCH ×3 (07:14→21:37)
[2017-10-11] MEDS: Gabapentin 400 MG CAPSULE PO SCH ×4 (07:14→21:37)
[2017-10-11] MEDS: Piperacillin/Tazobactam 3.375 GM in 0.9 % Sodium Chloride Mini Bag 100 ML IVPB SCH (07:14)
[2017-10-11] MEDS: Budesonide/Formoterol 160/4.5 1 PUFF INH IH SCH ×2 (07:45→19:51)
[2017-10-11 07:48] LABS: BUN/Creatinine Ratio 12 (6-26); Blood Urea Nitrogen 11 mg/dL (6-20); Calcium 9.1 mg/dL (8.6-10.3); Carbon Dioxide 26 mEq/L (23-29); Chloride 105 mEq/L (98-107); Glucose 149 mg/dL (70-105); Osmolality,Calculated 286 (280-300); Potassium 4.8 mEq/L (3.5-5.1); Sodium 137 mEq/L (136-145); eGFR For Non-African Americans > 60 (> 60)
[2017-10-11 09:04] LABS: Estimated Average Glucose 117 mg/dl; Hemoglobin A1C 5.7 %
--- NOTE | 2017-10-11 09:29 | Pulmonology Consult Note ---
<Jackson Duarte - Last Filed: 10/11/17 15:11> Date of Encounter: 10/11/17 Time of Encounter: 09:27 Assessment and Plan (1) Acute exacerbation of chronic obstructive airways disease Current Visit: Yes Status: Acute - Pt was receiving Levaquin, doxycycline, and tapering dose steroids in the outpatient setting. - Infectious cause of exacerbation is unlikely due to normothermia, no chills, white count not grossly elevated, and CXR revealing only stable reticular opacities consistent with known interstitial disease - Pt continued to smoke up until hospital admission - Fine wheezes noted in upper lobes bilaterally on exam Spoke with pt at length about the importance of smoking cessation. Pt states she will continue to abstain from smoking after discharge. De-escalate antibiotics to levaquin to continue to cover for atypical microbes Increase Solumedrol to 80mg q8h in the setting of pt's weight and clinical picture Continue scheduled Symbicort and Duonebs (2) Interstitial lung disease Current Visit: No Status: Chronic Pt has hx of RBI LD (smoking-related interstitial lung disease) with biopsy from 03/29/16 Pt continued to smoke after this diagnosis up until this admission Pt counseled on the importance of smoking cessation for >10 minutes Pt states she was planning to quit yesterday (Tuesday), and now plans to continue cessation after this hospital admission (3) Tobacco abuse Current Visit: No Status: Acute Hx of tobacco abuse with associated ILD Counseled pt on importance of cessation >10 minutes Pt states she plans to continue cessation upon discharge History of Present Illness Consult date: 10/11/17 Requesting physician: Pramod Garvey Reason for consult: pneumonia Chief complaint: cough and increased sputum production History of present illness: Ms. Monet is a 37F with PMH including Asthma, COPD, arthritis, and GERD who presents with shortness of breath. She complains of persistent cough and increased "green" sputum production. She states the cough has been persistently worse since her admission in July for pneumonia which was accompanied by the increased sputum. She states her shortness of breath has gotten progressively worse as the oral steroids have been tapered. She also complains of generalized fatigue during this time. Of note, pt kept falling asleep during this encounter. She denies any fever or chills, but does admit to night sweats for approximately the past year. She states she experiences headaches, but this is nothing new for her. Denies any nausea, vomiting, change in bladder or bowel habits, numbness or tingling. For the last few weeks, she was being managed for pneumonia vs COPD exacerbation with a course of Levaquin, doxycycline, and tapering dose of steroids. Past Med Surg Social Fam HX - Past Medical History Medical history: arthritis, asthma, COPD, fibromyalgia, GERD, migraine, osteoporosis, renal disease, other Additional medical history: interstial lung fibrosus. Psychiatric history: anxiety, bipolar, depression, other - Past Surgical History Surgical History: other (Bronchoscopy. Right lung biopsy s/p thoracotomy s/p chest-tube placement/removal. Colectomy adenoidectomy. EGD. Laparoscopic tubal ligation. Coagulation with bipolar cautery. LEEP conization. Condylomata removal and partial vulvectomy) Additional surgical history: rt thoracotomy 03/29/16. vulvar condylomata removal. LEEP conizaton. EGD. Condyloma removal. partial vulvectomy. bronchoscopy - Social History Smoking Status: Current every day smoker Packs per day: 2 Smokeless Tobacco Status: No Alcohol use: occasionally Drug use: marijuana - Family History Mother Family Member Ethnicity: Non- Living Status: Still Living Hx Family Cardiac Disorders: Yes (Htn, Hyperlipidemia) Hx Family Respiratory Disorders: No Hx Family Cancer: No Hx Family GI Disorders: Yes (Hiatel hernia, GERD) Hx Family Endocrine Disorder: Yes (DM) Hx Family Neuromuscular Disorders: Yes (fibromyalgia) Hx Family Neurologic Disorders: No Hx Family HEENT Disorders: No Hx Family Autoimmune Disorders: No Father Living Status: Hx Family Cancer: Yes (lung cancer) Medications and Allergies ARIPiprazole [Abilify] 30 mg PO DAILY 10/01/14 [History] DULoxetine [Cymbalta] 60 mg PO BID 10/01/14 [History] Naproxen [Naprosyn] 500 mg PO BID 5 Days tablet 09/04/15 [Rx] Ipratropium/Albuterol Neb [Duoneb] 3 ml IH Q6HR PRN 02/03/16 [History] Oxygen 4 l NS CONT 02/03/16 [History] Tiotropium [place] [Spiriva Respimat] 2 puff IH DAILY 02/03/16 [History] Baclofen [Lioresal] 10 mg PO TID 04/19/16 [History] Albuterol Sulfate [Albuterol Inhaler] 2 puff IH Q4HR #1 hfa.aer.ad 07/26/16 [Rx] Budesonide/Formoterol 160/4.5 [Symbicort 160/4.5] 2 puff IH BIDR 07/28/17 [ History] SUMAtriptan Succinate [Imitrex] 100 mg PO DAILY PRN 07/28/17 [History] Esomeprazole Magnesium [Nexium] 40 mg PO DAILY 10/10/17 [History] Gabapentin [Neurontin] 800 mg PO QID 10/10/17 [History] Meloxicam [Meloxicam] 15 mg PO DAILY PRN 10/10/17 [History] 3 Allergy/AdvReac Type Severity Reaction Status Date / Time ketorolac [From Toradol] Allergy Intermediate Weakness Verified 07/28/17 18:41 Pneumococcal Vaccine Allergy Intermediate Rash Verified 07/28/17 18:41 [From Prevnar] tramadol Allergy Intermediate Weakness Verified 07/28/17 18:41 Cefaclor Allergy Rash Verified 07/28/17 18:41 Asenapine [From Saphris] AdvReac See Verified 07/28/17 18:41 Comments lamotrigine [From Lamictal] AdvReac Migraine Verified 07/28/17 18:41 lurasidone [From Latuda] AdvReac See Verified 07/28/17 18:41 Comments All Systems: The remainder of the systems were reviewed and are negative - Constitutional Constitutional: fatigue, headache(s), night sweats, no chills, no fever(s), no weakness - Cardiovascular Cardiovascular: no chest pain, no lightheadedness, no orthopnea, no palpitations - Respiratory Respiratory: cough, dyspnea, wheezing, excessive phlegm production, change in phlegm color (green phlegm ) - Gastrointestinal Gastrointestinal: heartburn, no nausea, no vomiting - Neurological Neurological: headache(s), no confusion, no dizziness, no numbness, no tingling , no weakness Physical Examination Vital Signs: Vital Signs, Last 4 Hours Temp Pulse Resp BP Pulse Ox 10/11/17 07:48 16 92 10/11/17 07:33 98.0 F 81 18 106/68 90 General appearance: lethargic Eyes: nonicteric ENT: oropharynx moist Neck: supple, no lymphadenopathy Effort: normal Inspection: normal Auscultation: bilateral: wheezes Percussion: bilateral: not dull Tactile fremitus: bilateral: normal Cardiovascular: regular rate and rhythm Gastrointestinal: soft, non-tender, non-distended Integumentary: normal Extremities: no cyanosis, no edema, no clubbing Musculoskeletal: no deformities normal mental status, non-focal exam mood appropriate, affect normal Results - Laboratory Findings CBC and BMP: 10/11/17 06:15 10/11/17 06:15 Abnormal lab findings: Abnormal lab results Hgb 10.8 g/dL (11.5-15.4) L 10/11/17 06:15 MCH 26.9 pg (28.0-33.3) L 10/11/17 06:15 MCHC 30.3 g/dL (31.6-35.5) L 10/11/17 06:15 RDW 16.6 % (11.5-14.5) H 10/11/17 06:15 Glucose 149 mg/dL (70-105) H 10/11/17 06:15 Hemoglobin A1c 5.7 % (-5.6) H 10/11/17 06:15 LDL Cholesterol, Calc 124 mg/dL (0-99) H 10/11/17 06:15 - Diagnostic Findings Chest x-ray: report reviewed, image reviewed - Clinical Findings Intake & Output: Intake & Output 10/10/17 10/11/17 10/11/17 23:59 07:59 15:59 Intake Total 800 / 900 100 / 100 Output Total 600 / 600 Balance 200 / 300 100 / 100 Weight 129.727 kg Consult Discharge Plan - Plan Referrals: Mervin Santiago MD [Primary Care Provider] - <Suzan Bhagat - Last Filed: 10/11/17 16:10> Date of Encounter: 10/11/17 All Systems: The remainder of the systems were reviewed and are negative Physical Examination Vital Signs: Vital Signs, Last 4 Hours Resp Pulse Ox 10/11/17 16:04 16 96 Results - Laboratory Findings CBC and BMP: 10/11/17 06:15 10/11/17 06:15 Abnormal lab findings: Abnormal lab results Hgb 10.8 g/dL (11.5-15.4) L 10/11/17 06:15 MCH 26.9 pg (28.0-33.3) L 10/11/17 06:15 MCHC 30.3 g/dL (31.6-35.5) L 10/11/17 06:15 RDW 16.6 % (11.5-14.5) H 10/11/17 06:15 Glucose 149 mg/dL (70-105) H 10/11/17 06:15 Hemoglobin A1c 5.7 % (-5.6) H 10/11/17 06:15 LDL Cholesterol, Calc 124 mg/dL (0-99) H 10/11/17 06:15 - Clinical Findings Intake & Output: Intake & Output 10/11/17 10/11/17 10/11/17 07:59 15:59 23:59 Intake Total 100 / 100 720 / 720 Output Total 2100 / 2100 Balance 100 / 100 -1380 / -1380 - Attending Attestation I examined this patient and my medical decision-making was reviewed with the Resident Physician. I agree with the documented findings, disposition and treatment plan as described except to the extent set forth below. Patient seen and examined. Labs, radiology, chart personally reviewed. 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 I will increase her systemic steroid and change antibiotic to oral Levaquin and keep SPO2 around 90%. As soon as patient feels better then she can follow-up as outpatient and perhaps she will need a follow-up pulmonary function test. Thank you for the consultation we will continue follow-up.
[2017-10-11] MEDS: MethylPREDNISolone 40 MG/ML VIAL IVP SCH ×2 (12:51→17:46)
--- NOTE | 2017-10-11 13:48 | Internal Med Progress Note ---
Hospitalist Progress Note - Encounter Date of Encounter: 10/11/17 Time of Encounter: 12:30 - Subjective Interval History: Patient states that she feels about the same as yesterday. No worsening cough or sputum production. Denies any fever/chills. - Exam Vitals: Temp Pulse Resp BP Pulse Ox 98.0 F 93 19 125/71 90 10/11/17 11:31 10/11/17 11:31 10/11/17 11:31 10/11/17 11:31 10/11/17 11:31 Exam: General: Alert and oriented, mild respiratory distress. Cardiovascular:Normal S1 & S2, No JVD. Pulse regular. Lungs: Equal breath sounds bilaterally, scattered wheezes at the bases. No rales/rhonchi Abdomen:Soft, non-tender, no rigidity. Extremities:No deformity or swelling Neurological:Normal cognition and motor skills. Non-focal - Assessment and Plan (1) HCAP (healthcare-associated pneumonia) Current Visit: Yes Status: Acute Assessment and Plan: Presented with shortness of breath and outpatient chest x-ray showing pneumonia , failed outpatient therapy with levaquin Leukocytosis of 12.1 -> improving Empirically treating with IV vancomycin/Zosyn and azithro for atypical coerage, D2 today urine strep, legionella ag, sputum culture pending Follow up on blood culture Pulm consult (2) Acute exacerbation of chronic obstructive airways disease Current Visit: Yes Status: Acute Assessment and Plan: Treatment per pneumonia as above IV Solu-Medrol 40 mg every 8, bronchodilators every 4 pulm consult as above (3) Elevated troponin I level Current Visit: Yes Status: Acute Assessment and Plan: Elevated at 0.07 in the absence of anginal symptoms and EKG changes concerning for ischemia Likely type II event in the setting of respiratory distress, downtrending Loaded with aspirin A1c normal, elevated LDL Echocardiogram pending (4) Interstitial lung disease Current Visit: No Status: Chronic Assessment and Plan: Follows with pulmonary as an outpatient Treatment per pneumonia and COPD as above May need CT chest if she does not symptomatically improve consult pulm (5) Tobacco abuse Current Visit: No Status: Acute Assessment and Plan: Continues to smoke 2 packs per day, and advised on smoking cessation Declines nicotine replacement therapy as she is "allergic" to it (6) Morbid obesity with BMI of 40.0-44.9, adult Current Visit: No Status: Chronic Assessment and Plan: Counseled on weight loss. (7) Hypokalemia Current Visit: Yes Status: Acute Assessment and Plan: Repleted and normal today (8) DVT prophylaxis Current Visit: No Status: Acute Assessment and Plan: Sub-cutaneous heparin - Time Spent with Patient Total time spent is greater than 50% in coordination of care (as documented) at patient's floor/unit and/or counseling patient: Plan of Care Discussed with: patient Internal Medicine: Result - Labs CBC & Chem 7: 10/11/17 06:15 10/11/17 06:15 Labs: Short CBC 10/11/17 Range/Units 06:15 WBC 7.1 (4.3-11.1) K/mcL Hgb 10.8 L (11.5-15.4) g/dL Hct 35.7 (35.3-44.9) % Plt Count 253 (140-400) K/mcL BMP 10/11/17 06:15 Sodium 137 Potassium 4.8 D Chloride 105 Carbon Dioxide 26 BUN 11 Creatinine 0.92 Glucose 149 H Calcium 9.1 Cardiac Enzymes 10/10/17 10/11/17 Range/Units 22:25 06:15 Troponin I 0.05 H* 0.03 (< 0.04) ng/mL Consult Discharge Plan - Plan Referrals: Mevrin Santiago MD [Primary Care Provider] -
[2017-10-11] MEDS: levoFLOXacin 750 MG TABLET PO SCH (14:38)
[2017-10-11] MEDS ORDERED: Aminoglycoside Consult 1 EACH MC ONE (18:07)
[2017-10-12] MEDS: MethylPREDNISolone 40 MG/ML VIAL IVP SCH ×2 (03:15→12:54)
[2017-10-12] MEDS: Ipratropium/Albuterol Neb 3 ML IH SCH ×5 (03:48→15:22)
[2017-10-12] MEDS: *HR* Heparin 5,000 UNIT/ML VIAL SQ SCH ×2 (06:05→12:54)
[2017-10-12 07:00] LABS: Basophils % 0.1 %; Hematocrit 34.9 % (35.3-44.9); Immature Granulocytes % 0.6 % (0-4); Lymphocytes % 7.8 %; Mean Corpuscular HGB Conc 31.5 g/dL (31.6-35.5); Mean Corpuscular Hemoglobin 27.2 pg (28.0-33.3); Mean Corpuscular Volume 86.4 fL (83.0-100.0); Mean Platelet Volume 9.5 fL (9.4-12.4); Monocytes # 0.6 K/mcL (0.0-1.3); Monocytes % 4.4 %; Neutrophils # 11.5 K/mcL (1.6-8.9); Platelet Count 282 K/mcL (140-400); Red Blood Count 4.04 M/mcL (3.82-4.97); Red Cell Distribution Width 16.9 % (11.5-14.5); Segmented Neutrophils % 87.1 %
[2017-10-12] MEDS: Gabapentin 400 MG CAPSULE PO SCH ×2 (07:48→12:54)
[2017-10-12] MEDS: ARIPiprazole 10 MG TABLET PO SCH (07:48)
[2017-10-12] MEDS: Baclofen 10 MG TABLET PO SCH ×2 (07:48→15:00)
[2017-10-12] MEDS: Budesonide/Formoterol 160/4.5 1 PUFF INH IH SCH (08:17)
--- NOTE | 2017-10-12 13:44 | Pulmonology Progress Note ---
<Jackson Duarte - Last Filed: 10/12/17 16:03> Date of Encounter: 10/12/17 Time of Encounter: 15:24 Assessment and Plan (1) Acute exacerbation of chronic obstructive airways disease Current Visit: Yes Status: Acute - Pt was receiving Levaquin, doxycycline, and tapering dose steroids in the outpatient setting. - Infectious cause of exacerbation is unlikely due to normothermia, no chills, white count not grossly elevated, and CXR revealing only stable reticular opacities consistent with known interstitial disease - Pt continued to smoke up until hospital admission - Fine wheezes noted in upper lobes bilaterally on initial exam 10/12: Spoke with pt at length about the importance of smoking cessation. Pt states she will continue to abstain from smoking after discharge. Ok to continue treatment outpatient from pulm standpoint Follow up in clinic in 2 weeks Continue levaquin to continue to cover for atypical microbes Continue Symbicort and Duonebs Continue corticosteroid therapy - 40mg prednisone taper upon discharge (2) Interstitial lung disease Current Visit: No Status: Chronic Pt has hx of RBI LD (smoking-related interstitial lung disease) with biopsy from 03/29/16 Pt continued to smoke after this diagnosis up until this admission Pt counseled on the importance of smoking cessation for >10 minutes Pt states she was planning to quit yesterday (Tuesday), and now plans to continue cessation after this hospital admission (3) Tobacco abuse Current Visit: No Status: Acute Hx of tobacco abuse with associated ILD Counseled pt on importance of cessation >10 minutes Pt states she plans to continue cessation upon discharge Subjective Principal diagnosis: COPD exacerbation Interval history: No acute events overnight. Pt states she feels "way better" today. States her difficulty breathing has improved greatly and she is now no longer short of breath. Denies any cough, increased sputum production, wheezing, fever, chills, nausea, vomiting, headache, numbness or tingling. Objective PUL Vital signs: Last Vital Signs Temp 98.3 F 10/12/17 11:22 Pulse 92 10/12/17 11:22 Resp 15 10/12/17 11:22 BP 149/92 10/12/17 11:22 Pulse Ox 92 10/12/17 11:22 General appearance: no acute distress Eyes: nonicteric ENT: oropharynx moist Neck: supple, no lymphadenopathy Effort: normal Auscultation: bilateral: clear, diminished breath sounds Percussion: bilateral: not dull Tactile fremitus: bilateral: normal Cardiovascular: regular rate and rhythm Gastrointestinal: soft, non-tender, non-distended Integumentary: normal Extremities: no cyanosis, no edema, no clubbing Musculoskeletal: no deformities, ROM normal normal mental status, non-focal exam mood appropriate, affect normal Results - Laboratory Findings CBC and BMP: 10/12/17 05:35 10/11/17 06:15 Abnormal lab findings: Abnormal lab results WBC 13.2 K/mcL (4.3-11.1) H D 10/12/17 05:35 Hgb 11.0 g/dL (11.5-15.4) L 10/12/17 05:35 Hct 34.9 % (35.3-44.9) L 10/12/17 05:35 MCH 27.2 pg (28.0-33.3) L 10/12/17 05:35 MCHC 31.5 g/dL (31.6-35.5) L 10/12/17 05:35 RDW 16.9 % (11.5-14.5) H 10/12/17 05:35 Neutrophils # 11.5 K/mcL (1.6-8.9) H 10/12/17 05:35 Glucose 149 mg/dL (70-105) H 10/11/17 06:15 Hemoglobin A1c 5.7 % (-5.6) H 10/11/17 06:15 LDL Cholesterol, Calc 124 mg/dL (0-99) H 10/11/17 06:15 - Microbiology Findings Microbiology Findings: Microbiology, Last 48 Hours 10/11/17 14:45 Legionella Antigen - Final Urine,Clean Catch Streptococcus pneumoniae Antigen (M - Final - Clinical Findings Intake & Output: Intake & Output 10/11/17 10/12/17 10/12/17 23:59 07:59 15:59 Intake Total 800 / 800 Balance 800 / 800 Weight 133 kg Consult Discharge Plan - Plan Instructions: Chronic Obstructive Pulmonary Disease (DC), Pneumonia (DC) Referrals: Mervin Santiago MD [Primary Care Provider] - 10/18/17 9:45 am Prescriptions: levoFLOXacin [Levaquin] 750 mg PO Q24H #5 tablet predniSONE [PredniSONE] 40 mg PO DAILY #17 tablet <Suzan Bhagat M - Last Filed: 10/12/17 17:25> Date of Encounter: 10/12/17 Objective PUL Vital signs: Last Vital Signs Temp 98.8 F 10/12/17 15:58 Pulse 87 10/12/17 15:58 Resp 18 10/12/17 15:58 BP 130/81 10/12/17 15:58 Pulse Ox 94 10/12/17 15:58 Results - Laboratory Findings CBC and BMP: 10/12/17 05:35 10/11/17 06:15 Abnormal lab findings: Abnormal lab results WBC 13.2 K/mcL (4.3-11.1) H D 10/12/17 05:35 Hgb 11.0 g/dL (11.5-15.4) L 10/12/17 05:35 Hct 34.9 % (35.3-44.9) L 10/12/17 05:35 MCH 27.2 pg (28.0-33.3) L 10/12/17 05:35 MCHC 31.5 g/dL (31.6-35.5) L 10/12/17 05:35 RDW 16.9 % (11.5-14.5) H 10/12/17 05:35 Neutrophils # 11.5 K/mcL (1.6-8.9) H 10/12/17 05:35 Glucose 149 mg/dL (70-105) H 10/11/17 06:15 Hemoglobin A1c 5.7 % (-5.6) H 10/11/17 06:15 LDL Cholesterol, Calc 124 mg/dL (0-99) H 10/11/17 06:15 - Microbiology Findings Microbiology Findings: Microbiology, Last 48 Hours 10/11/17 14:45 Legionella Antigen - Final Urine,Clean Catch Streptococcus pneumoniae Antigen (M - Final - Clinical Findings Intake & Output: Intake & Output 10/12/17 10/12/17 10/12/17 07:59 15:59 23:59 Intake Total 640 / 640 Output Total 900 / 900 Balance -260 / -260 Weight 133 kg - Attending Attestation I examined this patient and my medical decision-making was reviewed with the Resident Physician. I agree with the documented findings, disposition and treatment plan as described except to the extent set forth below. Patient seen and examined. Labs, radiology, chart personally reviewed. Agree with resident's history and physical, assessment, plan with following comments: RN REVIEW: Patient follows commands, Pulmonary: Acceptable oxygenation and ventilation and patient is doing much better. Patient can be discharged home on taper steroid over 10-14 days with empiric antibiotics and then we can see patient now is in about 2 weeks. Patient understands she should quit smoking completely. We will for any questions. Cardiovascular: stable
[2017-10-12] MEDS: levoFLOXacin 750 MG TABLET PO SCH (15:00)
[2017-10-12 15:59] VITALS: BP 130/81
--- NOTE | 2017-10-12 16:47 | Discharge Summary ---
- NOTES TO OUTPATIENT PROVIDER Notes to Outpatient Provider: PAtient with history of COPD, interstitial lung disease on 4 L of oxygen, tobacco abuse, was admitted for HCAP and COPD exacerbation. O2 requirement was at her baseline and did not appear to be in acute respiratory failure. She however did fail outpatient treatment. Initially treated with vancomycin/Zosyn which was switched to Levaquin per pulmonary. She was started on high-dose steroids inpatient and is being discharged on 40mg steroid taper and levaquin with pulmonary follow up in 2 weeks. Smoking cessation again emphasized. Had mild troponin elevation of 0.07 in the absence of angina or EKG changes. Echo confirmed normal EF without wall motion abnormalities. Date of Encounter: 10/12/17 Time of Encounter: 15:00 - Discharge Diagnosis (1) HCAP (healthcare-associated pneumonia) Priority: Primary Status: Acute (2) Acute exacerbation of chronic obstructive airways disease Priority: Secondary Status: Acute (3) Elevated troponin I level Priority: Secondary Status: Acute (4) Interstitial lung disease Priority: Secondary Status: Chronic (5) Tobacco abuse Priority: Secondary Status: Acute (6) Morbid obesity with BMI of 40.0-44.9, adult Priority: Secondary Status: Chronic (7) Hypokalemia Priority: Secondary Status: Acute (8) DVT prophylaxis Priority: Secondary Status: Acute Hospital course: Ms. Monet is a 37 year old female with history of COPD, interstitial lung disease on 4 L of oxygen, tobacco abuse, was admitted for HCAP and COPD exacerbation. O2 requirement was at her baseline hence did not appear to be in acute respiratory failure. Failed outpatient treatment. Initially treated with vancomycin/Zosyn which was switched to Levaquin per pulmonary. She was started on high-dose steroids inpatient and is being discharged on 40mg steroid taper and levaquin with pulmonary follow up in 2 weeks. Smoking cessation again emphasized. Had mild troponin elevation of 0.07 in the absence of angina or EKG changes. Echo confirmed normal EF without wall motion abnormalities. Discharge discussed with: patient, nurse - Time Spent with Patient Total time spent providing and/or coordinating discharge services: Greater than 30 minutes - Discharge Medications Prescriptions: levoFLOXacin [Levaquin] 750 mg PO Q24H #5 tablet predniSONE [PredniSONE] 40 mg PO DAILY #17 tablet Home Medications: ARIPiprazole [Abilify] 30 mg PO DAILY 10/01/14 [History] DULoxetine [Cymbalta] 60 mg PO BID 10/01/14 [History] Naproxen [Naprosyn] 500 mg PO BID 5 Days tablet 09/04/15 [Rx] Ipratropium/Albuterol Neb [Duoneb] 3 ml IH Q6HR PRN 02/03/16 [History] Oxygen 4 l NS CONT 02/03/16 [History] Tiotropium [place] [Spiriva Respimat] 2 puff IH DAILY 02/03/16 [History] Baclofen [Lioresal] 10 mg PO TID 04/19/16 [History] Albuterol Sulfate [Albuterol Inhaler] 2 puff IH Q4HR #1 hfa.aer.ad 07/26/16 [Rx] Budesonide/Formoterol 160/4.5 [Symbicort 160/4.5] 2 puff IH BIDR 07/28/17 [ History] SUMAtriptan Succinate [Imitrex] 100 mg PO DAILY PRN 07/28/17 [History] Esomeprazole Magnesium [Nexium] 40 mg PO DAILY 10/10/17 [History] Gabapentin [Neurontin] 800 mg PO QID 10/10/17 [History] Meloxicam 15 mg PO DAILY PRN 10/10/17 [History] levoFLOXacin [Levaquin] 750 mg PO Q24H #5 tablet 10/12/17 [Rx] predniSONE [PredniSONE] 40 mg PO DAILY #17 tablet 10/12/17 [Rx] Allergies/Adverse Reactions: 3 Allergy/AdvReac Type Severity Reaction Status Date / Time ketorolac [From Toradol] Allergy Intermediate Weakness Verified 07/28/17 18:41 Pneumococcal Vaccine Allergy Intermediate Rash Verified 07/28/17 18:41 [From Prevnar] tramadol Allergy Intermediate Weakness Verified 07/28/17 18:41 Cefaclor Allergy Rash Verified 07/28/17 18:41 Asenapine [From Saphris] AdvReac See Verified 07/28/17 18:41 Comments lamotrigine [From Lamictal] AdvReac Migraine Verified 07/28/17 18:41 lurasidone [From Latuda] AdvReac See Verified 07/28/17 18:41 Comments Date of admission: 10/10/17 17:50 Primary care physician: Mervin Santiago MD Consults: 10/11/17 08:41 Consult to Pulmonology [CONS] Routine Consulting Provider: Pulm [facility] [facility] Reason for Consult: hx of interstitial lung disease, COPD. Recently tx for PNA, failed outpt Call Completed: Yes - Constitutional Vitals: Temp Pulse Resp BP Pulse Ox 98.8 F 87 18 130/81 94 10/12/17 15:58 10/12/17 15:58 10/12/17 15:58 10/12/17 15:58 10/12/17 15:58 Exam: General: Alert and oriented, mild respiratory distress. Cardiovascular:Normal S1 & S2, No JVD. Pulse regular. Lungs: Equal breath sounds bilaterally, scattered wheezes at the bases. No rales/rhonchi Abdomen:Soft, non-tender, no rigidity. Extremities:No deformity or swelling Neurological:Normal cognition and motor skills. Non-focal - Patient Status Disposition: Home, Self-Care Condition: Good Overall status at discharge: patient is progressing back to baseline - Discharge Instructions Instructions: Chronic Obstructive Pulmonary Disease (DC), Pneumonia (DC) Follow Up With: Mervin Santiago MD [Primary Care Provider] - 10/18/17 9:45 am - Diet and Activity Activity: resume usual activities as tolerated Diet: advance to your usual diet
--- NOTE | 2017-10-12 18:15 | Electrocardiograph Report ---
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
== END 2017-10-12 18:08 | disposition home or self-care (01) | DRG 190 ==
LOC: EMEROOARM 14:37 → 3BNU 14:37 → SUATTDRO 17:50 → 3BNU 18:05
PROVIDERS: ADMIT Internal Medicine; ATTEND Internal Medicine

== ENCOUNTER 2018-02-14 19:06 | Inpatient (IN) ==
[2018-02-14] MEDS ORDERED: Ipratropium/Albuterol Neb 3 ML ONE (19:20)
[2018-02-14] MEDS ORDERED: predniSONE 20 MG TABLET PO ONE (19:22)
[2018-02-14] MEDS ORDERED: Ipratropium/Albuterol Neb 3 ML IH ONE (19:22)
[2018-02-14 19:41] LABS: Basophils % 0.2 %; Hematocrit 39.6 % (35.3-44.9); Hemoglobin 11.9 g/dL (11.5-15.4); Immature Granulocytes % 0.6 % (0-4); Immature Platelets 0.8 % (1.1-6.1); Lymphocytes # 0.9 K/mcL (0.6-4.6); Lymphocytes % 5.2 %; Mean Corpuscular HGB Conc 30.1 g/dL (31.6-35.5); Mean Corpuscular Hemoglobin 25.3 pg (28.0-33.3); Mean Corpuscular Volume 84.1 fL (83.0-100.0); Mean Platelet Volume 8.8 fL (9.4-12.4); Monocytes # 0.3 K/mcL (0.0-1.3); Monocytes % 1.5 %; Neutrophils # 16.7 K/mcL (1.6-8.9); Platelet Count 285 K/mcL (140-400); Red Blood Count 4.71 M/mcL (3.82-4.97); Red Cell Distribution Width 17.5 % (11.5-14.5); Segmented Neutrophils % 92.5 %
--- NOTE | 2018-02-14 19:59 | Emergency Department Note ---
Disposition Clinical Impression: COPD with acute exacerbation, HCAP (healthcare-associated pneumonia), Shortness of breath, Acute and chronic respiratory failure with hypoxia, Hypoxia Sepsis Qualifiers: Sepsis type: sepsis due to unspecified organism Qualified Code(s): A41.9 - Sepsis, unspecified organism Disposition: Admitted As Inpatient Condition: Undetermined Referrals: Mervin Santiago MD [Primary Care Provider] - Forms: ED Satisfaction Letter Time of Disposition: 21:53 SOB HPI - General Chief Complaint: ED Shortness of Breath/Dyspnea Stated Complaint: Emy Time Seen by Provider: 02/14/18 19:19 Source: patient, EMS Mode of arrival: EMS Limitations: physical limitation Nursing Notes Reviewed: Yes Vital Signs Reviewed: Yes - History of Present Illness 37-year-old female with history of pulmonary fibrosis arrives to the emergency department complaining of dyspnea. The patient states she wears 4 L nasal cannula [id number] and was noted that despite her 4 L EMS arrived and she had a O2 saturation the 50s. The patient was in respiratory distress upon arrival. The increase the patient's O2 saturation with increasing her oxygen and brought the patient for evaluation emergency department. My evaluation emergency Department the patient was on 6 L nasal cannula was 89%. She had mild accessory muscle use and was sitting upright was not tripoding. She was able to speak in 4-5 word sentences. The patient denies any such chest pain, sputum production. Patient does state that she has baseline sputum production and cough states this is unchanged. She denies any hemoptysis, unilateral leg swelling, recent surgeries or immobilizations. The patient does state that she recently had a bronchoscopy which was recently admitted for pneumonia and d yspnea previously. The patient was discharged on Augmentin and doxycycline. She states dated that she completed her antibiotic course. She denies any other complaints at this time. - Related Data Home Medications Medication Instructions Recorded Confirmed ARIPiprazole [Abilify] 30 mg PO DAILY 10/01/14 02/02/18 DULoxetine [Cymbalta] 60 mg PO BID 10/01/14 02/02/18 Ipratropium/Albuterol Neb [Duoneb] 3 ml IH Q6HR PRN 02/03/16 02/02/18 Oxygen 4 l NS CONT 02/03/16 02/02/18 Tiotropium [place] [Spiriva 2 puff IH DAILY 02/03/16 02/02/18 Respimat] Baclofen [Lioresal] 10 mg PO TID 04/19/16 02/02/18 Budesonide/Formoterol 160/4.5 2 puff IH BIDR 07/28/17 02/02/18 [Symbicort 160/4.5] SUMAtriptan Succinate [Imitrex] 100 mg PO DAILY PRN 07/28/17 02/02/18 Esomeprazole Magnesium [Nexium] 40 mg PO DAILY 10/10/17 02/02/18 Gabapentin [Neurontin] 800 mg PO QID 10/10/17 02/02/18 Meloxicam 15 mg PO DAILY PRN 10/10/17 02/02/18 Furosemide [Lasix] 40 mg PO DAILY 02/02/18 02/02/18 Potassium Citrate [Urocit-K] 10 meq PO DAILY 02/02/18 02/02/18 diazePAM [Valium] 10 mg PO Q8H PRN 02/02/18 02/02/18 Albuterol Sulfate [Ventolin Hfa] 1 - 2 puff IH Q4H PRN 02/04/18 02/04/18 Previous Rx's Medication Instructions Recorded Amoxicillin/Clavulanate [Augmentin] 875 mg PO BIDWM #6 tablet 02/09/18 Doxycycline 100 mg PO BID #6 capsule 02/09/18 predniSONE [PredniSONE] 40 mg PO DAILY #20 tablet 02/09/18 Allergies Allergy/AdvReac Type Severity Reaction Status Date / Time ketorolac [From Toradol] Allergy Intermediate Weakness Verified 02/02/18 20:32 Pneumococcal Vaccine Allergy Intermediate Rash Verified 02/02/18 20:32 [From Prevnar] tramadol Allergy Intermediate Weakness Verified 02/02/18 20:32 Cefaclor Allergy Rash Verified 02/02/18 20:32 Asenapine [From Saphris] AdvReac See Verified 02/02/18 20:32 Comments lamotrigine [From Lamictal] AdvReac Migraine Verified 02/02/18 20:32 lurasidone [From Latuda] AdvReac See Verified 02/02/18 20:32 Comments All systems ED: reviewed and negative except as stated. Constitutional: Denies: fever, chills, weakness ENT ED: Denies: dysphagia Cardiovascular: Denies: chest pain, dyspnea on exertion Respiratory: Reports: cough, dyspnea, sputum production. Denies: wheezes Gastrointestinal: Denies: abdominal pain, nausea, vomiting Genitourinary: Denies: urgency Musculoskeletal: Denies: back pain Integumentary: Denies: rash Neurological: Denies: headache Past Medical History - Past Medical History Attestation: Yes The following information was validated with the patient. 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: polycystic ovary syndrome, bilateral tubal ligation - Social History Smoking Status: Current every day smoker Smokeless Tobacco Status: No Alcohol use: Reports: rarely Drug use: Reports: marijuana Physical Exam - General Limitations: physical limitation General appearance: alert, in distress (mild respiratory) - Head Head exam: atraumatic, normocephalic, normal inspection - Eye Eye exam: Present: normal appearance, PERRL, EOMI - ENT ENT exam: normal exam, normal oropharynx, mucous membranes moist - Neck Neck exam: Present: normal inspection, full ROM, trachea midline - Chest Chest inspection: Present: normal inspection, symmetric chest wall rise - Respiratory Respiratory exam: Present: respiratory distress (mild), other (coarse breath sounds) - Cardiovascular Cardiovascular exam: Present: normal rhythm, tachycardia, normal heart sounds - Abdominal Exam Abdominal exam: Present: soft, Non-Tender. Absent: tenderness, distention, guarding, rebound, rigidity - Extremities Exam Extremities exam: Present: normal inspection, full ROM. Absent: tenderness, pedal edema - Neurological Exam Neurological exam: Present: alert, oriented X3 - Skin Skin exam: Present: warm, dry, intact, normal color Course Vital Signs Temperature 98.8 F 02/14/18 19:15 Pulse Rate 117 02/14/18 19:15 Respiratory Rate 21 02/14/18 19:15 Blood Pressure 147/78 02/14/18 19:15 O2 Sat by Pulse Oximetry 88 02/14/18 19:15 Temperature 98.8 F 02/14/18 19:15 Pulse Rate 104 02/14/18 21:48 Respiratory Rate 20 02/14/18 21:48 Blood Pressure 129/79 02/14/18 21:48 O2 Sat by Pulse Oximetry 91 02/14/18 21:48 Oxygen Delivery Oxygen Delivery Nasal Cannula Shortness of Breath/Dyspnea - MDM Narrative Medical decision making narrative: Patient's workup in the emergency department demonstrates right lower lobe consolidation which is consistent with previous chest x-ray of 02/02/2018. The patient does have leukocytosis which is likely chronic secondary to probably chronic steroids. However the patient does have a left shift. The patient was started on vancomycin and Zosyn given patient's recent admission and diagnosis of pulmonary fibrosis. The patient had blood cultures and lactic acid that was drawn here in the emergency department. Patient's lactic was mildly elevated to the patient was given a liter of IV fluids here in the emergency department. Patient was noted to be hypoxic and this probably can account for the patient's elevated lactic acid as well as her work of breathing but we are still treating the patient for concern for possible sepsis. The patient receives 3 duo nebs as well as steroids here in the emergency department. Patient states she is feeling is resting comfortably in the low 90s and upper 80s on 4 L nasal cannula. We will admit the patient to the hospital at this time for further workup and care. Patient made aware and agrees to plan. No further questions or concerns noted. Accepted by Dr. Shen. - Medical Records Medical records reviewed: Yes I reviewed the patient's medical records. - Lab Data Lab results reviewed: Yes I reviewed the patient's lab results. Result diagrams: 02/14/18 19:32 02/14/18 19:32 Lab Results 02/14/18 02/14/18 02/14/18 Range/Units 19:31 19:32 19:32 WBC (4.3-11.1) K/mcL RBC (3.82-4.97) M/mcL Hgb (11.5-15.4) g/dL Hct (35.3-44.9) % MCV (83.0-100.0) fL MCH (28.0-33.3) pg MCHC (31.6-35.5) g/dL RDW (11.5-14.5) % Plt Count (140-400) K/mcL MPV (9.4-12.4) fL Immature Gran % (0-4) % Seg Neutrophils % % Lymphocytes % % Monocytes % % Eosinophils % % Basophils % % Neutrophils # (1.6-8.9) K/mcL Lymphocytes # (0.6-4.6) K/mcL Monocytes # (0.0-1.3) K/mcL Eosinophils # (0.0-0.6) K/mcL Basophils # (0.0-0.2) K/mcL Immature Plt Fraction (1.1-6.1) % Sodium 138 (136-145) mEq/L Potassium 3.9 (3.5-5.1) mEq/L Chloride 99 (98-107) mEq/L Carbon Dioxide 29 (23-29) mEq/L BUN 21 H (6-20) mg/dL Creatinine 1.03 (0.60-1.20) mg/dL Est GFR ( Amer) > 60 (> 60) Est GFR (Non-Af Amer) 60 (> 60) BUN/Creatinine Ratio 20 (6-26) Glucose 298 H (70-105) mg/dL Calculated Osmolality 300 (280-300) Lactic Acid 2.5 H (0.5-2.2) mmol/L Calcium 8.4 L (8.6-10.3) mg/dL Troponin I < 0.03 (< 0.04) ng/mL B-Natriuretic Peptide 13 (Less than 100) pg/mL 02/14/18 Range/Units 19:32 WBC 18.0 H (4.3-11.1) K/mcL RBC 4.71 (3.82-4.97) M/mcL Hgb 11.9 (11.5-15.4) g/dL Hct 39.6 (35.3-44.9) % MCV 84.1 (83.0-100.0) fL MCH 25.3 L (28.0-33.3) pg MCHC 30.1 L (31.6-35.5) g/dL RDW 17.5 H (11.5-14.5) % Plt Count 285 (140-400) K/mcL MPV 8.8 L (9.4-12.4) fL Immature Gran % 0.6 (0-4) % Seg Neutrophils % 92.5 % Lymphocytes % 5.2 % Monocytes % 1.5 % Eosinophils % 0.0 % Basophils % 0.2 % Neutrophils # 16.7 H (1.6-8.9) K/mcL Lymphocytes # 0.9 (0.6-4.6) K/mcL Monocytes # 0.3 (0.0-1.3) K/mcL Eosinophils # 0.0 (0.0-0.6) K/mcL Basophils # 0.0 (0.0-0.2) K/mcL Immature Plt Fraction 0.8 L (1.1-6.1) % Sodium (136-145) mEq/L Potassium (3.5-5.1) mEq/L Chloride (98-107) mEq/L Carbon Dioxide (23-29) mEq/L BUN (6-20) mg/dL Creatinine (0.60-1.20) mg/dL Est GFR ( Amer) (> 60) Est GFR (Non-Af Amer) (> 60) BUN/Creatinine Ratio (6-26) Glucose (70-105) mg/dL Calculated Osmolality (280-300) Lactic Acid (0.5-2.2) mmol/L Calcium (8.6-10.3) mg/dL Troponin I (< 0.04) ng/mL B-Natriuretic Peptide (Less than 100) pg/mL - Radiology Data Radiology results reviewed: Yes I reviewed the patient's radiology results. Chest X-Ray 02/14/18 19:21 IMPRESSION: Unchanged large right basilar consolidation compared with 02/02/2018. D/ / Chilo Dutton MD / Chilo Dutton MD Interpreting Provider: Chilo Dutton MD - EKG Data EKG attestation: Yes I reviewed and interpreted this EKG. EKG results narrative: Heart rate 116 beats for minute. Sinus tachycardia. No ST elevation or ST depression noted. No acute changes except for tachycardia. No other acute findings
[2018-02-14 20:05] LABS: BUN/Creatinine Ratio 20 (6-26); Blood Urea Nitrogen 21 mg/dL (6-20); Calcium 8.4 mg/dL (8.6-10.3); Carbon Dioxide 29 mEq/L (23-29); Chloride 99 mEq/L (98-107); Glucose 298 mg/dL (70-105); Osmolality,Calculated 300 (280-300); Potassium 3.9 mEq/L (3.5-5.1); Sodium 138 mEq/L (136-145); eGFR For Non-African Americans 60 (> 60)
[2018-02-14 20:06] LABS: Troponin I < 0.03 ng/mL (< 0.04)
[2018-02-14] MEDS ORDERED: 0.9 % Sodium Chloride 1,000 ML IVC ONE (20:49)
[2018-02-14] MEDS ORDERED: Piperacillin/Tazobactam 3.375 GM in 0.9 % Sodium Chloride Mini Bag 100 ML IVPB ONE (21:25)
--- NOTE | 2018-02-14 21:34 | Emergency Department Note ---
Disposition Clinical Impression: COPD with acute exacerbation, HCAP (healthcare-associated pneumonia), Shortness of breath, Acute and chronic respiratory failure with hypoxia, Hypoxia, Severe sepsis Disposition: Admitted As Inpatient Condition: Fair General Adult HPI - General Chief complaint: ED Shortness of Breath/Dyspnea Stated complaint: Emy Time Seen by Provider: 02/14/18 19:19 Source: patient, EMS Mode of arrival: EMS Limitations: physical limitation Nursing Notes Reviewed: Yes Vital Signs Reviewed: Yes - History of Present Illness Pain Scale: 0 - Related Data Home Medications Medication Instructions Recorded Confirmed ARIPiprazole [Abilify] 30 mg PO DAILY 10/01/14 02/14/18 DULoxetine [Cymbalta] 60 mg PO BID 10/01/14 02/14/18 Ipratropium/Albuterol Neb [Duoneb] 3 ml IH Q6HR PRN 02/03/16 02/14/18 Oxygen 4 l NS CONT 02/03/16 02/14/18 Tiotropium [place] [Spiriva 2 puff IH DAILY 02/03/16 02/14/18 Respimat] Baclofen [Lioresal] 10 mg PO TID 04/19/16 02/14/18 Budesonide/Formoterol 160/4.5 2 puff IH BIDR 07/28/17 02/14/18 [Symbicort 160/4.5] SUMAtriptan Succinate [Imitrex] 100 mg PO DAILY PRN 07/28/17 02/14/18 Esomeprazole Magnesium [Nexium] 40 mg PO DAILY 10/10/17 02/14/18 Gabapentin [Neurontin] 800 mg PO QID 10/10/17 02/02/18 Meloxicam 15 mg PO DAILY PRN 10/10/17 02/14/18 Furosemide [Lasix] 40 mg PO DAILY 02/02/18 02/14/18 Potassium Citrate [Urocit-K] 10 meq PO DAILY 02/02/18 02/14/18 diazePAM [Valium] 10 mg PO Q8H PRN 02/02/18 02/14/18 Albuterol Sulfate [Ventolin Hfa] 1 - 2 puff IH Q4H PRN 02/04/18 02/14/18 Previous Rx's Medication Instructions Recorded Amoxicillin/Clavulanate [Augmentin] 875 mg PO BIDWM #6 tablet 02/09/18 Doxycycline 100 mg PO BID #6 capsule 02/09/18 predniSONE [PredniSONE] 40 mg PO DAILY #20 tablet 02/09/18 Allergies Allergy/AdvReac Type Severity Reaction Status Date / Time ketorolac [From Toradol] Allergy Intermediate Weakness Verified 02/02/18 20:32 Pneumococcal Vaccine Allergy Intermediate Rash Verified 02/02/18 20:32 [From Prevnar] tramadol Allergy Intermediate Weakness Verified 02/02/18 20:32 Cefaclor Allergy Rash Verified 02/02/18 20:32 Asenapine [From Saphris] AdvReac See Verified 02/02/18 20:32 Comments lamotrigine [From Lamictal] AdvReac Migraine Verified 02/02/18 20:32 lurasidone [From Latuda] AdvReac See Verified 02/02/18 20:32 Comments Constitutional: Denies: fever, chills, weakness ENT ED: Denies: dysphagia Cardiovascular: Denies: chest pain, dyspnea on exertion Respiratory: Reports: cough, dyspnea, sputum production. 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 syndrome, bilateral tubal ligation - Social History Smoking Status: Current every day smoker Smokeless Tobacco Status: No Alcohol use: Reports: rarely Drug use: Reports: marijuana Physical Exam - General Limitations: physical limitation General appearance: alert, in distress (mild respiratory) Course Vital Signs Temperature 98.8 F 02/14/18 19:15 Pulse Rate 117 02/14/18 19:15 Respiratory Rate 21 02/14/18 19:15 Blood Pressure 147/78 02/14/18 19:15 O2 Sat by Pulse Oximetry 88 02/14/18 19:15 Temperature 98.8 F 02/14/18 19:15 Pulse Rate 104 02/14/18 21:48 Respiratory Rate 20 02/14/18 21:48 Blood Pressure 129/79 02/14/18 21:48 O2 Sat by Pulse Oximetry 91 02/14/18 21:48 Oxygen Delivery Oxygen Delivery Nasal Cannula Medical Decision Making - Medical Records Medical records reviewed: Yes I reviewed the patient's medical records. - Lab Data Lab results reviewed: Yes I reviewed the patient's lab results. Result diagrams: 02/14/18 19:32 02/14/18 19:32 Lab Results 02/14/18 02/14/18 02/14/18 Range/Units 19:31 19:32 19:32 WBC (4.3-11.1) K/mcL RBC (3.82-4.97) M/mcL Hgb (11.5-15.4) g/dL Hct (35.3-44.9) % MCV (83.0-100.0) fL MCH (28.0-33.3) pg MCHC (31.6-35.5) g/dL RDW (11.5-14.5) % Plt Count (140-400) K/mcL MPV (9.4-12.4) fL Immature Gran % (0-4) % Seg Neutrophils % % Lymphocytes % % Monocytes % % Eosinophils % % Basophils % % Neutrophils # (1.6-8.9) K/mcL Lymphocytes # (0.6-4.6) K/mcL Monocytes # (0.0-1.3) K/mcL Eosinophils # (0.0-0.6) K/mcL Basophils # (0.0-0.2) K/mcL Immature Plt Fraction (1.1-6.1) % Sodium 138 (136-145) mEq/L Potassium 3.9 (3.5-5.1) mEq/L Chloride 99 (98-107) mEq/L Carbon Dioxide 29 (23-29) mEq/L BUN 21 H (6-20) mg/dL Creatinine 1.03 (0.60-1.20) mg/dL Est GFR ( Amer) > 60 (> 60) Est GFR (Non-Af Amer) 60 (> 60) BUN/Creatinine Ratio 20 (6-26) Glucose 298 H (70-105) mg/dL Calculated Osmolality 300 (280-300) Lactic Acid 2.5 H (0.5-2.2) mmol/L Calcium 8.4 L (8.6-10.3) mg/dL Troponin I < 0.03 (< 0.04) ng/mL B-Natriuretic Peptide 13 (Less than 100) pg/mL 02/14/18 Range/Units 19:32 WBC 18.0 H (4.3-11.1) K/mcL RBC 4.71 (3.82-4.97) M/mcL Hgb 11.9 (11.5-15.4) g/dL Hct 39.6 (35.3-44.9) % MCV 84.1 (83.0-100.0) fL MCH 25.3 L (28.0-33.3) pg MCHC 30.1 L (31.6-35.5) g/dL RDW 17.5 H (11.5-14.5) % Plt Count 285 (140-400) K/mcL MPV 8.8 L (9.4-12.4) fL Immature Gran % 0.6 (0-4) % Seg Neutrophils % 92.5 % Lymphocytes % 5.2 % Monocytes % 1.5 % Eosinophils % 0.0 % Basophils % 0.2 % Neutrophils # 16.7 H (1.6-8.9) K/mcL Lymphocytes # 0.9 (0.6-4.6) K/mcL Monocytes # 0.3 (0.0-1.3) K/mcL Eosinophils # 0.0 (0.0-0.6) K/mcL Basophils # 0.0 (0.0-0.2) K/mcL Immature Plt Fraction 0.8 L (1.1-6.1) % Sodium (136-145) mEq/L Potassium (3.5-5.1) mEq/L Chloride (98-107) mEq/L Carbon Dioxide (23-29) mEq/L BUN (6-20) mg/dL Creatinine (0.60-1.20) mg/dL Est GFR ( Amer) (> 60) Est GFR (Non-Af Amer) (> 60) BUN/Creatinine Ratio (6-26) Glucose (70-105) mg/dL Calculated Osmolality (280-300) Lactic Acid (0.5-2.2) mmol/L Calcium (8.6-10.3) mg/dL Troponin I (< 0.04) ng/mL B-Natriuretic Peptide (Less than 100) pg/mL - Radiology Data Radiology results reviewed: Yes I reviewed the patient's radiology results. Chest X-Ray 02/14/18 19:21 IMPRESSION: Unchanged large right basilar consolidation compared with 02/02/2018. D/ / Chilo Dutton MD / Chilo Dutton MD Interpreting Provider: Chilo Dutton MD - EKG Data EKG #1 EKG attestation: Yes I reviewed and interpreted this EKG. EKG results narrative: EKG shows sinus tachycardia with ventricular rate of 116. No significant ST segment elevation or depression. No ectopy. Critical Care Time Critical Care Time: Yes Total Critical Care Time: 35 Attestation: Critical care performed: Time is exclusive of separately billable procedures. Time includes: direct patient care, patient reassessment, coordination of patient care, interpretation of data (laboratory data, radiology data, and respiratory data), review of patient's medical records, medical consultation and documentation of patient care. Procedures included in critical care time: Procedures excluded from critical care time: Attestation Statement - Attestation Attestation: I, Charles Dumas MD, personally evaluated this patient and discussed their management with the resident physician. I reviewed the resident's note and agree with the documented findings, medical decision making, and plan of care. 37-year-old female with history of pulmonary fibrosis on chronic home oxygen at 4 L presents to the emergency department with a complaint of some increased shortness of breath and low oxygen saturations over the past few days. No increased cough. There has been some mild sputum production which is baseline for her. The sputum has been clear. No fever. No chest pain. Patient states that her oxygen saturation normally runs from the upper 80s to the mid 90s. Today it dropped down as low as the upper 50s and she was concerned and came to the emergency department. She was just recently in the hospital about 10 days ago and treated for right lower lobe pneumonia. She was discharged home with Augmentin and doxycycline which she has finished. On examination patient is a well-developed morbidly obese female in no acute distress. She is alert and oriented 3. There is no cyanosis or diaphoresis. Breath sounds are decreased bilaterally with some coarse scattered rhonchi bilaterally. Heart regular with a mild tachycardia. Abdomen soft and nontender with normal bowel sounds. Chest x-ray shows unchanged right lower lobe consolidation. EKG shows sinus tachycardia with rate of 116 in no acute changes. Labs reviewed. WBC 18 which appears to be about baseline for patient. Likely secondary to chronic steroid use. Lactic acid elevated at 2.5. Blood cultures obtained and IV antibiotics initiated. The hospitalist, Dr. Shen, was consulted and accepted admission of the patient.
--- NOTE | 2018-02-14 22:04 | Internal Med History&Physical ---
Date of Encounter: 02/14/18 Time of Encounter: 22:03 Internal Medicine - H&P: HPI Chief complaint: Dyspnea History of present illness: Ms. Monet is a 37 year old female with a past medical history of interstitial lung disease on 4 L home oxygen, reactive airway disease and morbid obesity who presents to the ED with a chief complaint of shortness of breath. Patient was recently discharged from the hospital on February 09 for treatment of right lower lobe pneumonia and had undergone a bronchoscopy during this admission with mucus clearing and a BAL which was negative. Patient was discharged on Augmentin and doxycycline and reports completing her antibiotic course. Patient reports that she had been doing fine in terms of her breathing the first couple days after discharge. However since then has been reporting gradually increasing dyspnea on exertion. Patient became concerned around 4 PM earlier this afternoon when her O2 saturations were in the upper 70s while at rest. She also noted that her lungs felt tight as if they were going to collapse. Patient states that she has had a dry cough since her bronchoscopy but normally has a productive cough. She denies any fever or chills. She reports diffuse piercing chest pain which is aggravated with deep breathing which has been ongoing since her bronchoscopy. Denies any orthopnea or lower extremity edema; no reports of sick contacts since discharge. She states that when EMS arrived and assessed her oxygenation, they obtained a pulse oximetry in the 50s. On arrival patient was saturating at 89% on 6 L. Chest x-ray shows unchanged right lower lobe consolidation. EKG shows sinus tachycardia with rate of 116 in no acute changes. Labs reviewed. WBC 18 which appears to be about baseline for patient. She was noted to have a Lactic acid of 2.5. Patient received fluid bolus in the ED as well as breathing treatments. She was started on broad spectrum antibiotics due to concern for healthcare associated pneumonia. Past Med Surg Social Fam HX - Past Medical History Medical history: arthritis, asthma, COPD, fibromyalgia, GERD, migraine, osteoporosis, renal disease, other Additional medical history: pulmonary fibrosis Psychiatric history: anxiety, bipolar, depression, other - Past Surgical History Surgical History: other Additional surgical history: thoracotomy, ablasions, tubal, tonsillectomy - Social History Smoking Status: Current every day smoker Smokeless Tobacco Status: No Alcohol use: rarely Drug use: marijuana - Family History Mother Family Member Ethnicity: Non- Living Status: Still Living Hx Family Cardiac Disorders: Yes (HTN) Hx Family Respiratory Disorders: No Hx Family Cancer: No Hx Family GI Disorders: Yes (Hiatel hernia, GERD) Hx Family Endocrine Disorder: Yes Hx Family Neuromuscular Disorders: Yes (fibromyalgia) Hx Family Neurologic Disorders: No Hx Family HEENT Disorders: No Hx Family Autoimmune Disorders: No Father Living Status: Hx Family Respiratory Disorders: Yes Hx Family Cancer: Yes (lung) Internal Medicine - H&P: Meds ARIPiprazole [Abilify] 30 mg PO DAILY 10/01/14 [History] DULoxetine [Cymbalta] 60 mg PO BID 10/01/14 [History] Ipratropium/Albuterol Neb [Duoneb] 3 ml IH Q6HR PRN 02/03/16 [History] Oxygen 4 l NS CONT 02/03/16 [History] Tiotropium [place] [Spiriva Respimat] 2 puff IH DAILY 02/03/16 [History] Baclofen [Lioresal] 10 mg PO TID 04/19/16 [History] Budesonide/Formoterol 160/4.5 [Symbicort 160/4.5] 2 puff IH BIDR 07/28/17 [History] SUMAtriptan Succinate [Imitrex] 100 mg PO DAILY PRN 07/28/17 [History] Esomeprazole Magnesium [Nexium] 40 mg PO DAILY 10/10/17 [History] Gabapentin [Neurontin] 800 mg PO QID 10/10/17 [History] Meloxicam 15 mg PO DAILY PRN 10/10/17 [History] Furosemide [Lasix] 40 mg PO DAILY 02/02/18 [History] Potassium Citrate [Urocit-K] 10 meq PO DAILY 02/02/18 [History] diazePAM [Valium] 10 mg PO Q8H PRN 02/02/18 [History] Albuterol Sulfate [Ventolin Hfa] 1 - 2 puff IH Q4H PRN 02/04/18 [History] Amoxicillin/Clavulanate [Augmentin] 875 mg PO BIDWM #6 tablet 02/09/18 [Rx] Doxycycline 100 mg PO BID #6 capsule 02/09/18 [Rx] predniSONE [PredniSONE] 40 mg PO DAILY #20 tablet 02/09/18 [Rx] Allergy/AdvReac Type Severity Reaction Status Date / Time ketorolac [From Toradol] Allergy Intermediate Weakness Verified 02/02/18 20:32 Pneumococcal Vaccine Allergy Intermediate Rash Verified 02/02/18 20:32 [From Prevnar] tramadol Allergy Intermediate Weakness Verified 02/02/18 20:32 Cefaclor Allergy Rash Verified 02/02/18 20:32 Asenapine [From Saphris] AdvReac See Verified 02/02/18 20:32 Comments lamotrigine [From Lamictal] AdvReac Migraine Verified 02/02/18 20:32 lurasidone [From Latuda] AdvReac See Verified 02/02/18 20:32 Comments All Systems PM: A 10-system review of systems was performed and is negative for pertinent findings except as documented above in the HPI. - Constitutional Constitutional: no chills, no fever(s), no night sweats - EENT Eyes: no change in vision, no discharge, no pain, no photophobia Ears: no ear discharge, no ear pain, no tinnitus Nose, mouth and throat: no dysphagia, no nasal discharge, no neck pain, no sore throat - Cardiovascular Cardiovascular ROS IM: no chest pain, no diaphoresis, no dyspnea, no lightheadedness, no palpitations, no syncope - Respiratory Respiratory: no cough, no dyspnea, no wheezing, no excessive phlegm production - Gastrointestinal Gastrointestinal: no abdominal pain, no diarrhea, no hematemesis, no hematochezia, no melena, no nausea, no vomiting - Genitourinary Genitourinary: no change in urinary stream, no dysuria, no flank pain, no hematuria - Musculoskeletal Musculoskeletal ROS IM: no numbness, no tingling - Integumentary Integumentary IM: no rash, no unusual bruising - Neurological Neurological ROS: no confusion, no convulsions, no focal weakness, no numbness, no tingling, no tremor(s) - Hematologic/Lymphatic Hematologic/Lymphatic: no easy bruising - Constitutional Vitals: Temp Pulse Resp BP Pulse Ox 98.8 F 104 20 129/79 91 02/14/18 19:15 02/14/18 21:48 02/14/18 21:48 02/14/18 21:48 02/14/18 21:48 Exam: General: Alert and oriented 3 sitting on the side of the bed not in acute distress Skin:Normal color, no rash, no lesions. HEENT:EOM, pupils equal, round and reactive. Cardiovascular:Normal S1 & S2, no rubs, murmurs or gallops. No JVD. Pulse regular. Lungs: Crackles noted in the left lung base Abdomen:Soft, non-tender, no rigidity. Extremities:No deformity, no edema or tenderness, no joint swelling or clubbing. Neurological:Normal cognition and motor skills. Pulses:Carotid and radial pulses normal +2. Rest of the physical exam is non contributory Internal Med - H&P Results - Labs CBC & Chem 7: 02/15/18 00:16 02/15/18 00:16 Labs: Short CBC 02/14/18 Range/Units 19:32 WBC 18.0 H (4.3-11.1) K/mcL Hgb 11.9 (11.5-15.4) g/dL Hct 39.6 (35.3-44.9) % Plt Count 285 (140-400) K/mcL Neutrophils # 16.7 H (1.6-8.9) K/mcL BMP 02/14/18 19:32 Sodium 138 Potassium 3.9 Chloride 99 Carbon Dioxide 29 BUN 21 H Creatinine 1.03 Glucose 298 H Calcium 8.4 L Cardiac Enzymes 02/14/18 Range/Units 19:32 Troponin I < 0.03 (< 0.04) ng/mL - Impressions ITS Impressions Chest X-Ray 02/14/18 19:21 IMPRESSION: Unchanged large right basilar consolidation compared with 02/02/2018. D/ / Chilo Dutton MD / Chilo Dutton MD Interpreting Provider: Chilo Dutton MD - Assessment and plan (1) Acute and chronic respiratory failure with hypoxia Current Visit: Yes Status: Acute Assessment and plan: Patient presents with several day history of worsening shortness of breath in the setting of interstitial lung disease on 4 L oxygen at baseline, currently requiring 5 L. Differential includes HCAP given recent hospitalization versus exacerbation of underlying reactive airway disease in the setting of her already existing interstitial lung disease. Patient appears to be stable now from a respiratory standpoint. We will treat possible underlying causes. (2) Sepsis Current Visit: Yes Assessment and plan: Concern for sepsis/severe sepsis given mildly elevated lactic acid of 2.5 and 3 out of 4 SIRS criteria. She received 1 L fluid bolus in the ED. She currently on broad-spectrum antibiotics due to concern for healthcare associated pneumonia. -Repeat lactic acid -Continue fluid support -Continue broad-spectrum antibiotic coverage for concern for HCAP -Follow up cultures Qualifiers: Sepsis type: sepsis due to unspecified organism Qualified Code(s): A41.9 - Sepsis, unspecified organism (3) Healthcare-associated pneumonia Current Visit: Yes Status: Acute Assessment and plan: Acute on chronic respiratory failure with recent hospitalization for treatment of pneumonia. Cannot rule out healthcare associated pneumonia at this time. -We will start patient on broad-spectrum antibiotics -Follow blood and sputum cultures; urine antigens. (4) COPD with acute exacerbation Current Visit: Yes Status: Acute Assessment and plan: Patient reports history of COPD. Patient does have a significant smoking history. Based on previous pulmonary function testing, patient does appear to have some level of reactive airway disease. Did not appreciate wheezing on physical examination the patient received breathing treatment in the ED. We will treat for possible COPD exacerbation. -Duo nebs -Steroids -Biotics (5) Leukocytosis Current Visit: No Status: Acute Assessment and plan: Neutrophilic leukocytosis with no significant change from previous admission. Patient has been on steroids since discharge. Possibly secondary to steroid use versus infection. We will monitor for now. Qualifiers: Leukocytosis type: unspecified Qualified Code(s): D72.829 - Elevated white blood cell count, unspecified (6) DVT prophylaxis Current Visit: No Status: Resolved Assessment and plan: Subcutaneous heparin - Time Spent With Patient Total time spent is greater than 50% in coordination of care (as documented) at patient's floor/unit and/or counseling patient:
[2018-02-14] MEDS ORDERED: Naloxone 0.4 MG/ML INJ IVP PRN (22:08)
[2018-02-14] MEDS ORDERED: 0.9 % Sodium Chloride 1,000 ML IVC SCH (22:15)
[2018-02-14] MEDS ORDERED: Vancomycin (wt based) 1,000 MG VIAL IVPB SCH (23:00)
[2018-02-14] MEDS: MethylPREDNISolone 40 MG/ML VIAL IVP SCH (23:29)
[2018-02-14] MEDS ORDERED: Nitroglycerin 0.4 MG TAB.SUBL SL PRN (23:33)
[2018-02-14] MEDS: Ipratropium/Albuterol Neb 3 ML IH SCH (23:43)
[2018-02-15] MEDS: Azithromycin 500 MG in D5% in Water 250 ML IVPB SCH ×2 (00:39→23:08)
[2018-02-15] MEDS: *HR* Heparin 5,000 UNIT/ML VIAL SQ SCH ×4 (00:40→21:32)
[2018-02-15 00:42] LABS: Basophils % 0.1 %; Hematocrit 40.2 % (35.3-44.9); Immature Granulocytes % 0.7 % (0-4); Lymphocytes # 0.8 K/mcL (0.6-4.6); Mean Corpuscular HGB Conc 29.9 g/dL (31.6-35.5); Mean Corpuscular Hemoglobin 25.5 pg (28.0-33.3); Mean Corpuscular Volume 85.5 fL (83.0-100.0); Monocytes # 0.3 K/mcL (0.0-1.3); Monocytes % 1.7 %; Neutrophils # 15.1 K/mcL (1.6-8.9); Platelet Count 305 K/mcL (140-400); Red Cell Distribution Width 17.5 % (11.5-14.5); Segmented Neutrophils % 92.5 %
[2018-02-15 00:56] LABS: Alanine Aminotransferase 24 Units/L (7-52); Albumin 3.9 g/dL (3.5-5.7); Albumin/Globulin Ratio 1.4 (1.1-2.2); Alkaline Phosphatase 63 Units/L (34-104); Aspartate Amino Transferase 9 Units/L (13-39); BUN/Creatinine Ratio 24 (6-26); Bilirubin,Total 0.2 mg/dL (0.3-1.0); Blood Urea Nitrogen 21 mg/dL (6-20); Calcium 8.6 mg/dL (8.6-10.3); Carbon Dioxide 27 mEq/L (23-29); Chloride 103 mEq/L (98-107); Globulin 2.7 g/dL (2.4-3.5); Glucose 140 mg/dL (70-105); Osmolality,Calculated 289 (280-300); Potassium 4.2 mEq/L (3.5-5.1); Sodium 137 mEq/L (136-145); Total Protein 6.6 g/dL (6.4-8.9); eGFR For Non-African Americans > 60 (> 60)
[2018-02-15] MEDS: Ipratropium/Albuterol Neb 3 ML IH SCH ×5 (01:55→23:05)
[2018-02-15 02:12] LABS: Adenovirus Not Detected (Not Detect); Bordetella Pertussis Not Detected (Not Detect); Chlamydophila pneumoniae Not Detected (Not Detect); Coronavirus 229E Not Detected (Not Detect); Coronavirus HKU1 Not Detected (Not Detect); Coronavirus NL63 Not Detected (Not Detect); Coronavirus OC43 Not Detected (Not Detect); Human Metapneumovirus Not Detected (Not Detect); Human Rhinovirus/Enterovirus Not Detected (Not Detect); Influenza A Subtype 2009 H1 Not Detected (Not Detect); Influenza A Untypeable Not Detected (Not Detect); Influenza B Not Detected (Not Detect); Mycoplasma pneumoniae Not Detected (Not Detect); Parainfluenza Virus 1 Not Detected (Not Detect); Parainfluenza Virus 2 Not Detected (Not Detect); Parainfluenza Virus 3 Not Detected (Not Detect); Parainfluenza Virus 4 Not Detected (Not Detect); Respiratory Syncytial Virus Not Detected (Not Detect)
[2018-02-15] MEDS ORDERED: SUMAtriptan succinate 50 MG TABLET PO PRN (02:55)
[2018-02-15] MEDS ORDERED: NON-FORMULARY MEDICATION 1 EACH EACH (Oxygen [Oxygen] 4 L) NS SCH (03:00)
[2018-02-15] MEDS: Piperacillin/Tazobactam 3.375 GM in 0.9 % Sodium Chloride Mini Bag 100 ML IVPB SCH ×3 (05:33→21:30)
[2018-02-15] MEDS: MethylPREDNISolone 40 MG/ML VIAL IVP SCH ×4 (05:33→23:08)
[2018-02-15 06:49] LABS: Estimated Average Glucose 134 mg/dl; Hemoglobin A1C 6.3 %
--- NOTE | 2018-02-15 07:51 | Internal Med Progress Note ---
Hospitalist Progress Note - Encounter Date of Encounter: 02/15/18 Time of Encounter: 07:50 - Exam Vitals: Temp Pulse Resp BP Pulse Ox 97.9 F 84 16 131/80 90 02/15/18 07:07 02/15/18 07:07 02/15/18 07:07 02/15/18 07:07 02/15/18 07:07 Exam: General: Alert and oriented 3 sitting on the side of the bed not in acute distress Skin:Normal color, no rash, no lesions. HEENT:EOM, pupils equal, round and reactive. Cardiovascular:Normal S1 & S2, no rubs, murmurs or gallops. No JVD. Pulse regular. Lungs: Crackles noted in the left lung base Abdomen:Soft, non-tender, no rigidity. Extremities:No deformity, no edema or tenderness, no joint swelling or clubbing. Neurological:Normal cognition and motor skills. Pulses:Carotid and radial pulses normal +2. Rest of the physical exam is non contributory - Assessment and Plan (1) Acute and chronic respiratory failure with hypoxia Current Visit: Yes Status: Acute Assessment and Plan: Patient presents with several day history of worsening shortness of breath in the setting of interstitial lung disease on 4 L oxygen at baseline, currently requiring 5 L. Likely secondary to HCAP vs COPD exacerbation. Continue nebs, steroids and antibiotics (2) Healthcare-associated pneumonia Current Visit: Yes Status: Acute Assessment and Plan: Acute on chronic respiratory failure with recent hospitalization for treatment of pneumonia. Cannot rule out healthcare associated pneumonia at this time. -Continue on vanc and zosyn -Follow blood and sputum cultures; urine antigens. (3) Sepsis Current Visit: Yes Status: Acute Assessment and Plan: Concern for sepsis/severe sepsis given mildly elevated lactic acid of 2.5 and 3 out of 4 SIRS criteria. She received 1 L fluid bolus in the ED. She currently on broad-spectrum antibiotics due to concern for healthcare associated pneumonia.t -Continue broad-spectrum antibiotic coverage for concern for HCAP. Follow up cultures (4) Leukocytosis Current Visit: Yes Status: Acute Assessment and Plan: Neutrophilic leukocytosis with no significant change from previous admission. Patient has been on steroids since discharge. Possibly secondary to steroid use versus infection. We will monitor for now. (5) COPD with acute exacerbation Current Visit: Yes Status: Acute Assessment and Plan: Continue on nebs, steroids and antibiotics (6) DVT prophylaxis Current Visit: Yes Status: Resolved Assessment and Plan: Subcutaneous heparin - Time Spent with Patient Total time spent is greater than 50% in coordination of care (as documented) at patient's floor/unit and/or counseling patient: Internal Medicine: Result - Labs CBC & Chem 7: 02/15/18 00:16 02/15/18 00:16 Labs: Short CBC 02/14/18 02/15/18 Range/Units 19:32 00:16 WBC 18.0 H 16.4 H (4.3-11.1) K/mcL Hgb 11.9 12.0 (11.5-15.4) g/dL Hct 39.6 40.2 (35.3-44.9) % Plt Count 285 305 (140-400) K/mcL Neutrophils # 16.7 H 15.1 H (1.6-8.9) K/mcL BMP 02/14/18 02/15/18 19:32 00:16 Sodium 138 137 Potassium 3.9 4.2 Chloride 99 103 Carbon Dioxide 29 27 BUN 21 H 21 H Creatinine 1.03 0.88 Glucose 298 H 140 H Calcium 8.4 L 8.6 Cardiac Enzymes 02/14/18 Range/Units 19:32 Troponin I < 0.03 (< 0.04) ng/mL Liver Function 02/15/18 Range/Units 00:16 Total Bilirubin 0.2 L (0.3-1.0) mg/dL AST 9 L (13-39) Units/L ALT 24 (7-52) Units/L Alkaline Phosphatase 63 (34-104) Units/L Albumin 3.9 (3.5-5.7) g/dL - Impressions Impressions Chest X-Ray 02/14/18 19:21 IMPRESSION: Unchanged large right basilar consolidation compared with 02/02/2018. D/ / Chilo Dutton MD / Chilo Dutton MD Interpreting Provider: Chilo Dutton MD Consult Discharge Plan - Plan Referrals: Mervin Santiago MD [Primary Care Provider] - (3) Sepsis Qualifiers: Sepsis type: sepsis due to unspecified organism Qualified Code(s): A41.9 - Sepsis, unspecified organism (4) Leukocytosis Qualifiers: Leukocytosis type: unspecified Qualified Code(s): D72.829 - Elevated white blood cell count, unspecified
[2018-02-15] MEDS: Gabapentin 400 MG CAPSULE PO SCH ×4 (08:33→21:31)
[2018-02-15] MEDS: diazePAM 10 MG TABLET PO PRN ×3 (08:33→23:09)
[2018-02-15] MEDS: ARIPiprazole 10 MG TABLET PO SCH (08:34)
[2018-02-15] MEDS: Baclofen 10 MG TABLET PO SCH ×3 (08:34→21:31)
[2018-02-15] MEDS: Furosemide 40 MG TABLET PO SCH (08:34)
[2018-02-15] MEDS: Potassium Citrate 10 MEQ TABLET.ER PO SCH (08:34)
--- NOTE | 2018-02-15 08:57 | Pulmonology Consult Note ---
<OluannSuzan irving M - Last Filed: 02/15/18 12:54> Date of Encounter: 02/15/18 Medications and Allergies RX: ARIPiprazole [Abilify] 30 mg PO DAILY 10/01/14 [History] RX: DULoxetine [Cymbalta] 60 mg PO BID 10/01/14 [History] RX: Ipratropium/Albuterol Neb [Duoneb] 3 ml IH Q6HR PRN 02/03/16 [History] RX: Oxygen 4 l NS CONT 02/03/16 [History] RX: Tiotropium [place] [Spiriva Respimat] 2 puff IH DAILY 02/03/16 [History] RX: Baclofen [Lioresal] 10 mg PO TID 04/19/16 [History] RX: Budesonide/Formoterol 160/4.5 [Symbicort 160/4.5] 2 puff IH BIDR 07/28/17 [History] RX: SUMAtriptan Succinate [Imitrex] 100 mg PO DAILY PRN 07/28/17 [History] RX: Esomeprazole Magnesium [Nexium] 40 mg PO DAILY 10/10/17 [History] RX: Gabapentin [Neurontin] 800 mg PO QID 10/10/17 [History] RX: Meloxicam 15 mg PO DAILY PRN 10/10/17 [History] Potassium Citrate [Urocit-K] 10 meq PO DAILY 02/02/18 [History] RX: Furosemide [Lasix] 40 mg PO DAILY 02/02/18 [History] RX: diazePAM [Valium] 10 mg PO Q8H PRN 02/02/18 [History] Albuterol Sulfate [Ventolin Hfa] 1 - 2 puff IH Q4H PRN 02/04/18 [History] RX: Amoxicillin/Clavulanate [Augmentin] 875 mg PO BIDWM #6 tablet 02/09/18 [Rx] RX: Doxycycline 100 mg PO BID #6 capsule 02/09/18 [Rx] predniSONE [PredniSONE] 40 mg PO DAILY #20 tablet 02/09/18 [Rx] Allergy/AdvReac Type Severity Reaction Status Date / Time ketorolac [From Toradol] Allergy Intermediate Weakness Verified 02/02/18 20:32 Pneumococcal Vaccine Allergy Intermediate Rash Verified 12/20/18 20:32 [From Prevnar] tramadol Allergy Intermediate Weakness Verified 02/02/18 20:32 Cefaclor Allergy Rash Verified 02/02/18 20:32 Asenapine [From Saphris] AdvReac See Verified 02/02/18 20:32 Comments lamotrigine [From Lamictal] AdvReac Migraine Verified 02/02/18 20:32 lurasidone [From Latuda] AdvReac See Verified 02/02/18 20:32 Comments All Systems: The remainder of the systems were reviewed and are negative Physical Examination Vital Signs: Vital Signs, Last 4 Hours Temp Pulse Resp BP Pulse Ox 02/15/18 10:59 16 93 02/15/18 10:47 97.6 F 90 16 126/89 93 Results - Laboratory Findings CBC and BMP: 02/15/18 00:16 02/15/18 00:16 Abnormal lab findings: Abnormal lab results WBC 16.4 K/mcL (4.3-11.1) H 02/15/18 00:16 MCH 25.5 pg (28.0-33.3) L 02/15/18 00:16 MCHC 29.9 g/dL (31.6-35.5) L 02/15/18 00:16 RDW 17.5 % (11.5-14.5) H 02/15/18 00:16 MPV 9.0 fL (9.4-12.4) L 02/15/18 00:16 Neutrophils # 15.1 K/mcL (1.6-8.9) H 02/15/18 00:16 Immature Plt Fraction 0.8 % (1.1-6.1) L 02/14/18 19:32 BUN 21 mg/dL (6-20) H 02/15/18 00:16 Glucose 140 mg/dL (70-105) H 02/15/18 00:16 POC Glucose 148 mg/dL (70-99) H 02/15/18 07:18 Hemoglobin A1c 6.3 % (-5.6) H 02/15/18 00:16 Total Bilirubin 0.2 mg/dL (0.3-1.0) L 02/15/18 00:16 AST 9 Units/L (13-39) L 02/15/18 00:16 - Microbiology Findings Microbiology Findings: Microbiology, Last 48 Hours 02/14/18 23:46 Streptococcus pneumoniae Antigen (M - Final Urine,Clean Catch 02/14/18 23:46 Legionella Antigen - Final Urine,Clean Catch 02/14/18 19:32 Blood Culture - Preliminary Peripheral Venipuncture Culture is incubating and being continuously monitored for growth. Final report to follow. 02/14/18 19:31 Blood Culture - Preliminary Peripheral Venipuncture Culture is incubating and being continuously monitored for growth. Final report to follow. - Clinical Findings Intake & Output: Intake & Output 02/14/18 02/15/18 02/15/18 23:59 07:59 15:59 Weight 140 kg 140.6 kg Consult Discharge Plan - Plan Referrals: Mervin Santiago MD [Primary Care Provider] - - Attending Attestation I examined this patient and my medical decision-making was reviewed with the Res ident Physician. I agree with the documented findings, disposition and treatment plan as described except to the extent set forth below. Patient seen and examined. Labs, radiology, chart personally reviewed. Agree with resident's history and physical, assessment, plan with following comments: WINDOWS ADMIN: Patient follows commands, Pulmonary: Acceptable oxygenation and ventilation and patient is feeling better. Reviewed chest x-ray personally with no evidence of any worsening and since she already had long course of antibiotic, would recommend to taper off and treat her for COPD exacerbation. Patient was told previously she should not smoke at all otherwise she would have exacerbations and also she has component of panic attack with this and she is feeling better. Again a short course for about 5 days steroid and then follow-up as outpatient is recommended. Please call for any questions. Cardiovascular: stable <Cielo Owusu N - Last Filed: 02/15/18 15:58> Date of Encounter: 02/15/18 Time of Encounter: 08:57 Assessment and Plan (1) COPD exacerbation Current Visit: Yes Status: Acute Suspect that patient is currently having a COPD exacerbation based on her symptoms and imaging results. - Continue inhaled bronchodilators - Recommend prednisone 40mg daily with taper to be provided at discharge - Continue azithromycin (2) Pneumonia Current Visit: Yes Status: Acute Urine legionella and strep pneumo antigens negative. - Sputum culture pending - Continue azithromycin - Expect that antibiotic therapy can be deescalated quickly depending on results of sputum culture - Consider ID consult for further antibiotic recommendations Qualifiers: Pneumonia type: due to unspecified organism Laterality: unspecified laterality Lung location: unspecified part of lung Qualified Code(s): J18.9 - Pneumonia, unspecified organism (3) Interstitial lung disease Current Visit: No Status: Chronic History of Present Illness Consult date: 02/15/18 Requesting physician: Irvin Stanley Reason for consult: COPD, pulmonary fibrosis Chief complaint: Increased JANINE History of present illness: Ms. Monet is a 37-year old female with a history of interstitial lung disease and COPD who was recently discharged from the hospital on 02/09/2018 after being treated for right lower lobe pneumonia. During that admission, she underwent bronchoscopy with BAL. She states that her breathing did improve some after that; however, it worsened again soon after. She states that she thinks her current breathing exacerbation is due to a combination of her recent pneumonia, a panic attack, and having smoked a few cigarettes. Patient states that she became short of breath yesterday and noted her oxygen saturation to be in the 70s. When it did not improve with rest, she called the squad and was transported to the hospital. She notes that her saturation dropped into the 50s en route. She states that she has decreased her daily smoking to 5 cigarettes (down from 5 packs per day), and thinks that likely contributed to this incident as well. Patient was seen and evaluated at the bedside this morning. She does report improvement in her respiration since admission; however, she reports that she is continuing to be short of breath even at rest, and is visibly dyspneic while conversing.She denies any fevers, chills, or sputum production. She has no new complaints or concerns at this time. Past Med Surg Social Fam HX - Past Medical History Medical history: arthritis, asthma, COPD, fibromyalgia, GERD, migraine, osteoporosis, renal disease, other Additional medical history: pulmonary fibrosis Psychiatric history: anxiety, bipolar, depression, other - Past Surgical History Surgical History: other Additional surgical history: thoracotomy, ablasions, tubal, tonsillectomy - Social History Smoking Status: Current every day smoker Packs per day: 0.5 Smokeless Tobacco Status: No Alcohol use: rarely Drug use: marijuana - Family History Mother Family Member Ethnicity: Non- Living Status: Still Living Hx Family Cardiac Disorders: Yes (HTN) Hx Family Respiratory Disorders: No Hx Family Cancer: No Hx Family GI Disorders: Yes (Hiatel hernia, GERD) Hx Family Genitourinary Disorders: No Hx Family Endocrine Disorder: Yes Hx Family Musculoskeletal Disorders: Yes Hx Family Neuromuscular Disorders: Yes (fibromyalgia) Hx Family Neurologic Disorders: No Hx Family HEENT Disorders: No Hx Family Autoimmune Disorders: No Hx Family Reproductive Disorders: No Hx Family Psychosocial Disorders: No Hx Family Medical Disorders: No Father Living Status: Hx Family Respiratory Disorders: Yes Hx Family Cancer: Yes (lung) All Systems: The remainder of the systems were reviewed and are negative - Constitutional Constitutional: no chills, no fever(s) - Cardiovascular Cardiovascular: dyspnea, dyspnea on exertion, pedal edema, no chest pain - Respiratory Respiratory: cough, dyspnea, dyspnea on exertion, wheezing, chest congestion Physical Examination Vital Signs: Vital Signs, Last 4 Hours Temp Pulse Resp BP Pulse Ox 02/15/18 07:07 97.9 F 84 16 131/80 90 General appearance: no acute distress, alert Eyes: nonicteric ENT: oropharynx moist Effort: mildly labored Inspection: normal Auscultation: bilateral: diminished breath sounds, wheezes Cardiovascular: regular rate and rhythm Integumentary: normal Extremities: no cyanosis, no clubbing, pink and warm, edema (Non-pitting in bilateral LE) Musculoskeletal: no deformities normal mental status, non-focal exam mood appropriate, affect normal Results - Laboratory Findings CBC and BMP: 02/15/18 00:16 02/15/18 00:16 Abnormal lab findings: Abnormal lab results WBC 16.4 K/mcL (4.3-11.1) H 02/15/18 00:16 MCH 25.5 pg (28.0-33.3) L 02/15/18 00:16 MCHC 29.9 g/dL (31.6-35.5) L 02/15/18 00:16 RDW 17.5 % (11.5-14.5) H 02/15/18 00:16 MPV 9.0 fL (9.4-12.4) L 02/15/18 00:16 Neutrophils # 15.1 K/mcL (1.6-8.9) H 02/15/18 00:16 Immature Plt Fraction 0.8 % (1.1-6.1) L 02/14/18 19:32 BUN 21 mg/dL (6-20) H 02/15/18 00:16 Glucose 140 mg/dL (70-105) H 02/15/18 00:16 Hemoglobin A1c 6.3 % (-5.6) H 02/15/18 00:16 Total Bilirubin 0.2 mg/dL (0.3-1.0) L 02/15/18 00:16 AST 9 Units/L (13-39) L 02/15/18 00:16 - Microbiology Findings Microbiology Findings: Microbiology, Last 48 Hours 02/14/18 23:46 Streptococcus pneumoniae Antigen (M - Final Urine,Clean Catch 02/14/18 23:46 Legionella Antigen - Final Urine,Clean Catch 02/14/18 19:32 Blood Culture - Preliminary Peripheral Venipuncture Culture is incubating and being continuously monitored for growth. Final report to follow. 02/14/18 19:31 Blood Culture - Preliminary Peripheral Venipuncture Culture is incubating and being continuously monitored for growth. Final report to follow. - Clinical Findings Intake & Output: Intake & Output 02/14/18 02/15/18 02/15/18 23:59 07:59 15:59 Weight 140 kg 140.6 kg
[2018-02-15] MEDS ORDERED: Naloxone 0.4 MG/ML INJ IVP PRN (14:49)
--- NOTE | 2018-02-15 15:36 | Electrocardiograph Report ---
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
[2018-02-15] MEDS: Budesonide/Formoterol 160/4.5 1 PUFF INH IH SCH (23:05)
--- NOTE | 2018-02-15 23:09 | Event Note ---
Date of Encounter: 02/15/18 Time of Encounter: 21:07 Alerted by pts. nurse ARTURO Darby that there was a plan to de-escalate pt. from current abx w/exception of Azithromycin based on sputum culture results. Pt. admitted for COPD exacerbation and PNA. Checked Pulmonology notes which confirmed plan based on sputum results. Sputum culture uncollected as of tonight. Nurse instructed to continue pts. abx as ordered and collect sputum sample stat.
[2018-02-16] MEDS: Ipratropium/Albuterol Neb 3 ML IH SCH ×2 (04:08→10:21)
[2018-02-16 04:12] LABS: Basophils % 0.2 %; Hematocrit 36.4 % (35.3-44.9); Hemoglobin 11.1 g/dL (11.5-15.4); Immature Granulocytes % 0.7 % (0-4); Lymphocytes # 0.9 K/mcL (0.6-4.6); Mean Corpuscular HGB Conc 30.5 g/dL (31.6-35.5); Mean Corpuscular Hemoglobin 25.3 pg (28.0-33.3); Mean Corpuscular Volume 83.1 fL (83.0-100.0); Mean Platelet Volume 8.9 fL (9.4-12.4); Monocytes # 0.6 K/mcL (0.0-1.3); Monocytes % 3.5 %; Platelet Count 292 K/mcL (140-400); Red Blood Count 4.38 M/mcL (3.82-4.97); Red Cell Distribution Width 17.8 % (11.5-14.5); Segmented Neutrophils % 90.6 %
[2018-02-16 04:32] LABS: BUN/Creatinine Ratio 29 (6-26); Blood Urea Nitrogen 24 mg/dL (6-20); Calcium 8.9 mg/dL (8.6-10.3); Carbon Dioxide 27 mEq/L (23-29); Chloride 104 mEq/L (98-107); Glucose 114 mg/dL (70-105); Magnesium 2.3 mg/dL (1.6-2.6); Osmolality,Calculated 291 (280-300); Phosphorous 3.6 mg/dL (2.7-4.5); Potassium 4.8 mEq/L (3.5-5.1); Sodium 138 mEq/L (136-145); eGFR For Non-African Americans > 60 (> 60)
[2018-02-16] MEDS: Piperacillin/Tazobactam 3.375 GM in 0.9 % Sodium Chloride Mini Bag 100 ML IVPB SCH (06:10)
[2018-02-16] MEDS: MethylPREDNISolone 40 MG/ML VIAL IVP SCH (06:11)
[2018-02-16] MEDS: *HR* Heparin 5,000 UNIT/ML VIAL SQ SCH (06:14)
[2018-02-16 07:10] VITALS: BP 135/86
--- NOTE | 2018-02-16 07:47 | Discharge Summary ---
Orders not resulted at time of discharge: Pending orders 02/14/18 19:32 Culture,Blood [BC] Stat 02/14/18 23:00 Culture,Sputum with Gram Stain [RM] Routine 02/15/18 07:00 ECG 12 lead ECG [ECG] Routine 02/16/18 11:00 Vancomycin,Trough Timed 02/17/18 04:00 Basic Metabolic Panel AM 0400 CBC [Complete Blood Count] [HEME] AM 0400 Magnesium AM 0400 Phosphorous AM 0400 02/18/18 04:00 Basic Metabolic Panel AM 0400 CBC [Complete Blood Count] [HEME] AM 0400 Magnesium AM 0400 Phosphorous AM 0400 02/19/18 04:00 Basic Metabolic Panel AM 0400 CBC [Complete Blood Count] [HEME] AM 0400 Magnesium AM 0400 Phosphorous AM 0400 02/20/18 04:00 Basic Metabolic Panel AM 0400 CBC [Complete Blood Count] [HEME] AM 0400 Magnesium AM 0400 Phosphorous AM 0400 02/21/18 04:00 Basic Metabolic Panel AM 0400 CBC [Complete Blood Count] [HEME] AM 0400 Magnesium AM 0400 Phosphorous AM 0400 Date of Encounter: 02/16/18 Time of Encounter: 09:30 - Discharge Diagnosis (1) Acute and chronic respiratory failure with hypoxia Priority: Primary Status: Acute Assessment and Plan: 37 year old female with a past medical history of interstitial lung disease on 4 L home oxygen, reactive airway disease and morbid obesity who presents to the ED with a chief complaint of shortness of breath. Patient was recently discharged from the hospital on February 09 for treatment of right lower lobe pneumonia and had undergone a bronchoscopy during this admission with mucus clearing and a BAL which was negative. Patient was discharged on Augmentin and doxycycline and reports completing her antibiotic course. Patient reports that she had been doing fine in terms of her breathing the first couple days after discharge. However since then has been reporting gradually increasing dyspnea on exertion. Patient became concerned around 4 PM earlier this afternoon when her O2 saturations were in the upper 70s while at rest. She was assessed several day history of worsening shortness of breath in the setting of interstitial lung disease on 4 L oxygen at baseline, currently requiring 5 L likely secondary to COPD exacerbation from continued tobacco abuse. She improved on nebs, steroids and antibiotics. She was seen by pulmonary who deemed he back to baseline and determined she could follow up with them as an outpatient. she was discharged on azithromycin and a steroid taper (2) Healthcare-associated pneumonia Priority: Primary Status: Acute (3) Sepsis Priority: Primary Status: Acute Assessment and Plan: Concern for sepsis/severe sepsis given mildly elevated lactic acid of 2.5 and 3 out of 4 SIRS criteria. She received 1 L fluid bolus in the ED. She currently on broad-spectrum antibiotics due to concern for healthcare associated pneumonia.t -Continue broad-spectrum antibiotic coverage for concern for HCAP. Follow up cultures Qualifiers: Sepsis type: sepsis due to unspecified organism Qualified Code(s): A41.9 - Sepsis, unspecified organism (4) Leukocytosis Priority: Primary Status: Acute Qualifiers: Leukocytosis type: unspecified Qualified Code(s): D72.829 - Elevated white blood cell count, unspecified (5) COPD with acute exacerbation Priority: Primary Status: Acute (6) DVT prophylaxis Priority: Primary Status: Resolved Hospital course: Ms. Monet is a 37 year old female - Time Spent with Patient Total time spent providing and/or coordinating discharge services: - Discharge Medications Prescriptions: Azithromycin [Zithromax] 500 mg PO Q24H #3 tablet predniSONE [PredniSONE] 40 mg PO DAILY 5 Days #10 tablet Home Medications: ARIPiprazole [Abilify] 30 mg PO DAILY 10/01/14 [History] DULoxetine [Cymbalta] 60 mg PO BID 10/01/14 [History] Ipratropium/Albuterol Neb [Duoneb] 3 ml IH Q6HR PRN 02/03/16 [History] Oxygen 4 l NS CONT 02/03/16 [History] Tiotropium [place] [Spiriva Respimat] 2 puff IH DAILY 02/03/16 [History] Baclofen [Lioresal] 10 mg PO TID 04/19/16 [History] Budesonide/Formoterol 160/4.5 [Symbicort 160/4.5] 2 puff IH BIDR 07/28/17 [History] SUMAtriptan Succinate [Imitrex] 100 mg PO DAILY PRN 07/28/17 [History] Esomeprazole Magnesium [Nexium] 40 mg PO DAILY 10/10/17 [History] Gabapentin [Neurontin] 800 mg PO QID 10/10/17 [History] Meloxicam 15 mg PO DAILY PRN 10/10/17 [History] Furosemide [Lasix] 40 mg PO DAILY 02/02/18 [History] Potassium Citrate [Urocit-K] 10 meq PO DAILY 02/02/18 [History] diazePAM [Valium] 10 mg PO Q8H PRN 02/02/18 [History] Albuterol Sulfate [Ventolin Hfa] 1 - 2 puff IH Q4H PRN 02/04/18 [History] Doxycycline 100 mg PO BID #6 capsule 02/09/18 [Rx] Azithromycin [Zithromax] 500 mg PO Q24H #3 tablet 02/16/18 [Rx] predniSONE [PredniSONE] 40 mg PO DAILY 5 Days #10 tablet 02/16/18 [Rx] Allergies/Adverse Reactions: Allergy/AdvReac Type Severity Reaction Status Date / Time ketorolac [From Toradol] Allergy Intermediate Weakness Verified 02/02/18 20:32 Pneumococcal Vaccine Allergy Intermediate Rash Verified 02/02/18 20:32 [From Prevnar] tramadol Allergy Intermediate Weakness Verified 02/02/18 20:32 Cefaclor Allergy Rash Verified 02/02/18 20:32 Asenapine [From Saphris] AdvReac See Verified 02/02/18 20:32 Comments lamotrigine [From Lamictal] AdvReac Migraine Verified 02/02/18 20:32 lurasidone [From Latuda] AdvReac See Verified 02/02/18 20:32 Comments Date of admission: 02/15/18 14:49 Primary care physician: Mervin Santiago MD Consults: 02/14/18 22:24 Consult to Nurse Navigator [CONS] Routine Comment: 02/15/18 07:32 Consult to Pulmonology [CONS] Routine Consulting Provider: [facility] Reason for Consult: Acute on chronic respiratory failure Call Completed: No - Constitutional Vitals: Temp Pulse Resp BP Pulse Ox 97.5 F L 80 19 135/86 91 02/16/18 07:09 02/16/18 07:09 02/16/18 07:09 02/16/18 07:09 02/16/18 07:09 Exam: General: Alert and oriented 3 sitting on the side of the bed not in acute distress Skin:Normal color, no rash, no lesions. HEENT:EOM, pupils equal, round and reactive. Cardiovascular:Normal S1 & S2, no rubs, murmurs or gallops. No JVD. Pulse regular. Lungs: Crackles noted in the left lung base Abdomen:Soft, non-tender, no rigidity. Extremities:No deformity, no edema or tenderness, no joint swelling or clubbing. Neurological:Normal cognition and motor skills. Pulses:Carotid and radial pulses normal +2. Rest of the physical exam is non contributory - Patient Status Disposition: Home, Self-Care Condition: Fair - Discharge Instructions Follow Up With: Mervin Santiago MD [Primary Care Provider] - 02/21/18 9:45 am
[2018-02-16] MEDS: diazePAM 10 MG TABLET PO PRN (08:36)
[2018-02-16] MEDS: ARIPiprazole 10 MG TABLET PO SCH (08:36)
[2018-02-16] MEDS: Potassium Citrate 10 MEQ TABLET.ER PO SCH (08:36)
[2018-02-16] MEDS: Gabapentin 400 MG CAPSULE PO SCH (08:36)
[2018-02-16] MEDS: Baclofen 10 MG TABLET PO SCH (08:37)
[2018-02-16] MEDS: Furosemide 40 MG TABLET PO SCH (08:37)
[2018-02-16] MEDS ORDERED: Azithromycin 250 MG TABLET PO SCH (09:00)
--- NOTE | 2018-02-16 09:02 | Pulmonology Progress Note ---
<Cielo Owusu N - Last Filed: 02/16/18 13:30> Date of Encounter: 02/16/18 Time of Encounter: 09:02 Assessment and Plan (1) COPD exacerbation Status: Acute - Recommend continued bronchodilator, steroid, and antibiotic therapy per primary team - Recommend outpatient followup in pulmonology clinic in 1-2 weeks. Pulmonology will sign off at this time. Appreciate the consult and opportunity to work with this patient and be involved in her care. (2) Pneumonia Status: Acute Qualifiers: Pneumonia type: due to unspecified organism Laterality: unspecified laterality Lung location: unspecified part of lung Qualified Code(s): J18.9 - Pneumonia, unspecified organism (3) Interstitial lung disease Status: Chronic Subjective Interval history: Patient was seen and evaluated at the bedside today. She reports improvement in her respiratory symptoms, and states that she feels ready to go home. She denies any acute complaints or concerns today. Objective PUL Vital signs: Last Vital Signs Temp 97.5 F L 02/16/18 07:09 Pulse 80 02/16/18 07:09 Resp 19 02/16/18 07:09 BP 135/86 02/16/18 07:09 Pulse Ox 91 02/16/18 07:09 General appearance: no acute distress Eyes: nonicteric ENT: oropharynx moist Auscultation: right: diminished breath sounds, bilateral: wheezes (Occasional) Cardiovascular: regular rate and rhythm Integumentary: normal Extremities: no cyanosis, no clubbing, pink and warm normal mental status, non-focal exam mood appropriate, affect normal Results - Laboratory Findings CBC and BMP: 02/16/18 03:48 02/16/18 03:48 Abnormal lab findings: Abnormal lab results WBC 17.6 K/mcL (4.3-11.1) H 02/16/18 03:48 Hgb 11.1 g/dL (11.5-15.4) L 02/16/18 03:48 MCH 25.3 pg (28.0-33.3) L 02/16/18 03:48 MCHC 30.5 g/dL (31.6-35.5) L 02/16/18 03:48 RDW 17.8 % (11.5-14.5) H 02/16/18 03:48 MPV 8.9 fL (9.4-12.4) L 02/16/18 03:48 Neutrophils # 16.0 K/mcL (1.6-8.9) H 02/16/18 03:48 Immature Plt Fraction 0.8 % (1.1-6.1) L 02/14/18 19:32 BUN 24 mg/dL (6-20) H 02/16/18 03:48 BUN/Creatinine Ratio 29 (6-26) H 02/16/18 03:48 Glucose 114 mg/dL (70-105) H 02/16/18 03:48 POC Glucose 186 mg/dL (70-99) H 02/15/18 20:27 Hemoglobin A1c 6.3 % (-5.6) H 02/15/18 00:16 Total Bilirubin 0.2 mg/dL (0.3-1.0) L 02/15/18 00:16 AST 9 Units/L (13-39) L 02/15/18 00:16 - Microbiology Findings Microbiology Findings: Microbiology, Last 48 Hours 02/14/18 23:46 Streptococcus pneumoniae Antigen (M - Final Urine,Clean Catch 02/14/18 23:46 Legionella Antigen - Final Urine,Clean Catch 02/14/18 19:32 Blood Culture - Preliminary Peripheral Venipuncture Culture is incubating and being continuously monit ored for growth. Final report to follow. 02/14/18 19:31 Blood Culture - Preliminary Peripheral Venipuncture Culture is incubating and being continuously monitored for growth. Final report to follow. - Clinical Findings Intake & Output: Intake & Output 02/15/18 02/16/18 02/16/18 23:59 07:59 15:59 Intake Total 100 / 100 480 / 480 Balance 100 / 100 480 / 480 Weight 140.7 kg Consult Discharge Plan - Plan Referrals: Mervin Santiago MD [Primary Care Provider] - 02/21/18 9:45 am Prescriptions: RX: Azithromycin [Zithromax] 500 mg PO Q24H #3 tablet RX: predniSONE [PredniSONE] 40 mg PO DAILY 5 Days #10 tablet <uSzan Bhagat M - Last Filed: 02/16/18 15:21> Date of Encounter: 02/16/18 Objective PUL Vital signs: Last Vital Signs Temp 97.5 F L 02/16/18 07:09 Pulse 80 02/16/18 07:09 Resp 19 02/16/18 07:09 BP 135/86 02/16/18 07:09 Pulse Ox 91 02/16/18 07:09 Results - Laboratory Findings CBC and BMP: 02/16/18 03:48 02/16/18 03:48 Abnormal lab findings: Abnormal lab results WBC 17.6 K/mcL (4.3-11.1) H 02/16/18 03:48 Hgb 11.1 g/dL (11.5-15.4) L 02/16/18 03:48 MCH 25.3 pg (28.0-33.3) L 02/16/18 03:48 MCHC 30.5 g/dL (31.6-35.5) L 02/16/18 03:48 RDW 17.8 % (11.5-14.5) H 02/16/18 03:48 MPV 8.9 fL (9.4-12.4) L 02/16/18 03:48 Neutrophils # 16.0 K/mcL (1.6-8.9) H 02/16/18 03:48 Immature Plt Fraction 0.8 % (1.1-6.1) L 02/14/18 19:32 BUN 24 mg/dL (6-20) H 02/16/18 03:48 BUN/Creatinine Ratio 29 (6-26) H 02/16/18 03:48 Glucose 114 mg/dL (70-105) H 02/16/18 03:48 POC Glucose 186 mg/dL (70-99) H 02/15/18 20:27 Hemoglobin A1c 6.3 % (-5.6) H 02/15/18 00:16 Total Bilirubin 0.2 mg/dL (0.3-1.0) L 02/15/18 00:16 AST 9 Units/L (13-39) L 02/15/18 00:16 - Microbiology Findings Microbiology Findings: Microbiology, Last 48 Hours 02/14/18 23:46 Streptococcus pneumoniae Antigen (M - Final Urine,Clean Catch 02/14/18 23:46 Legionella Antigen - Final Urine,Clean Catch 02/14/18 19:32 Blood Culture - Preliminary Peripheral Venipuncture Culture is incubating and being continuously monitored for growth. Final report to follow. 02/14/18 19:31 Blood Culture - Preliminary Peripheral Venipuncture Culture is incubating and being continuously monitored for growth. Final report to follow. - Clinical Findings Intake & Output: Intake & Output 02/15/18 02/16/18 02/16/18 23:59 07:59 15:59 Intake Total 100 / 100 480 / 480 Balance 100 / 100 480 / 480 Weight 140.7 kg - Attending Attestation I examined this patient and my medical decision-making was reviewed with the Resident Physician. I agree with the documented findings, disposition and treatment plan as described except to the extent set forth below. Patient seen and examined. Labs, radiology, chart personally reviewed. 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 Patient was advised to quit smoking completely otherwise she would have worsening of her symptoms and had another hospitalization.
[2018-02-16] MEDS: Budesonide/Formoterol 160/4.5 1 PUFF INH IH SCH (10:21)
== END 2018-02-16 11:23 | disposition home or self-care (01) | DRG 871 ==
LOC: EMEROOARM 19:06 → 2ANU 19:06
PROVIDERS: ADMIT Internal Medicine; ATTEND Internal Medicine

== ENCOUNTER 2018-03-02 02:53 | Inpatient (IN) ==
[2018-03-02] MEDS ORDERED: methylPREDNISolone 125 MG/2 ML VIAL IVP ONE (03:23)
[2018-03-02] MEDS ORDERED: Ipratropium/Albuterol Neb 3 ML IH ONE (03:23)
--- NOTE | 2018-03-02 03:44 | Emergency Department Note ---
Disposition Clinical Impression: Pleural effusion, COPD exacerbation, Acute and chronic respiratory failure with hypoxia Disposition: Admitted As Inpatient Condition: Fair Referrals: Mervin Santiago MD [Primary Care Provider] - Time of Disposition: 05:32 SOB HPI - General Chief Complaint: ED Shortness of Breath/Dyspnea Stated Complaint: shortness of breath Time Seen by Provider: 03/02/18 03:10 Source: patient Mode of arrival: ambulatory Limitations: no limitations Nursing Notes Reviewed: Yes Vital Signs Reviewed: Yes - History of Present Illness 37-year-old female history of COPD and interstitial lung disease on 4 L home oxygen supplementation presents to the emergency department with shortness of breath and hypoxia. She states over the past several weeks she is been evaluated here for similar symptoms requiring admission. The 1st episode was 3 weeks ago for pneumonia, one week stay. She then became more hypoxic about 2 weeks ago and required admission. Today she reports dyspnea on exertion with a clear productive cough in her oxygen saturation dropping in the 70s. She states she normally sits around 94%. 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 She continues to use her home inhalers as prescribed. She states it does help when she uses it. She denies any fevers at home. She does report some mild leg swelling but she has not taken her diuretic. She denies any chest pain at this time. On her prior admission she had a bronchoscopy performed. Pt Subjective Complaint: shortness of breath - Related Data Home Medications Medication Instructions Recorded Confirmed ARIPiprazole [Abilify] 30 mg PO DAILY 10/01/14 02/14/18 DULoxetine [Cymbalta] 60 mg PO BID 10/01/14 02/14/18 Ipratropium/Albuterol Neb [Duoneb] 3 ml IH Q6HR PRN 02/03/16 02/14/18 Oxygen 4 l NS CONT 02/03/16 02/14/18 Tiotropium [place] [Spiriva 2 puff IH DAILY 02/03/16 02/14/18 Respimat] Baclofen [Lioresal] 10 mg PO TID 04/19/16 02/14/18 Budesonide/Formoterol 160/4.5 2 puff IH BIDR 07/28/17 02/14/18 [Symbicort 160/4.5] SUMAtriptan Succinate [Imitrex] 100 mg PO DAILY PRN 07/28/17 02/14/18 Esomeprazole Magnesium [Nexium] 40 mg PO DAILY 10/10/17 02/14/18 Gabapentin [Neurontin] 800 mg PO QID 10/10/17 02/14/18 Meloxicam 15 mg PO DAILY PRN 10/10/17 02/14/18 Furosemide [Lasix] 40 mg PO DAILY 02/02/18 02/14/18 Potassium Citrate [Urocit-K] 10 meq PO DAILY 02/02/18 02/14/18 diazePAM [Valium] 10 mg PO Q8H PRN 02/02/18 02/14/18 Albuterol Sulfate [Ventolin Hfa] 1 - 2 puff IH Q4H PRN 02/04/18 02/14/18 Previous Rx's Medication Instructions Recorded Doxycycline 100 mg PO BID #6 capsule 02/09/18 Azithromycin [Zithromax] 500 mg PO Q24H #3 tablet 02/16/18 Allergies Allergy/AdvReac Type Severity Reaction Status Date / Time ketorolac [From Toradol] Allergy Intermediate Weakness Verified 03/02/18 03:05 Pneumococcal Vaccine Allergy Intermediate Rash Verified 03/02/18 03:05 [From Prevnar] tramadol Allergy Intermediate Weakness Verified 03/02/18 03:05 Cefaclor Allergy Rash Verified 03/02/18 03:05 Asenapine [From Saphris] AdvReac See Verified 03/02/18 03:05 Comments lamotrigine [From Lamictal] AdvReac Migraine Verified 03/02/18 03:05 lurasidone [From Latuda] AdvReac See Verified 03/02/18 03:05 Comments All systems ED: reviewed and negative except as stated. Review of Systems: As Per HPI Constitutional: Denies: fever, chills ENT ED: Denies: congestion Cardiovascular: Denies: chest pain Respiratory: Reports: cough, dyspnea Gastrointestinal: Denies: abdominal pain, nausea, vomiting Genitourinary: Denies: dysuria Musculoskeletal: Denies: back pain Integumentary: Denies: rash, abrasion Neurological: Denies: headache Past Medical History - Past Medical History Attestation: Yes The following information was validated with the patient. 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: Reports: polycystic ovary syndrome, bilateral tubal ligation - Social History Smoking Status: Current every day smoker Smokeless Tobacco Status: No Alcohol use: Reports: rarely Drug use: Reports: marijuana Physical Exam - General Limitations: no limitations General appearance: alert, obese - Head Head exam: atraumatic, normocephalic, normal inspection - Eye Eye exam: Present: normal appearance, PERRL, EOMI - ENT ENT exam: normal exam, normal oropharynx, mucous membranes moist - Neck Neck exam: Present: normal inspection, full ROM, trachea midline - Chest Chest inspection: Present: normal inspection, symmetric chest wall rise - Respiratory Respiratory exam: Present: respiratory distress (Mild), wheezes (Bilateral), prolonged expiratory phase, other - Expanded Respiratory Exam Location: decreased breath sounds: Right - Cardiovascular Cardiovascular exam: Present: normal rhythm, tachycardia, normal heart sounds - Expanded Cardiovascular Exam Peripheral pulses: 2+: radial (R), radial (L) - Abdominal Exam Abdominal exam: Present: soft, Non-Tender, normal bowel sounds. Absent: tenderness, distention, guarding, rebound, rigidity - Extremities Exam Extremities exam: Present: normal inspection, full ROM, normal capillary refill. Absent: tenderness, pedal edema, calf tenderness - Neurological Exam Neurological exam: Present: alert, oriented X3 - Psychiatric Psychiatric exam: Present: normal affect, normal mood - Skin Skin exam: Present: warm, dry, intact, normal color. Absent: rash, cyanosis, diaphoresis Course Course Narrative: Patient presents with worsening shortness of breath. She presents with a similar history requiring hospitalization in the past. Breathing treatment steroids chest x-ray to evaluate for any new pneumonia. She remains hypoxic despite being on her home oxygen supplementation of 4 L. She has wheezing bilaterally with some crackles. - Reevaluation(s) Reevaluation #1: Mild leukocytosis. She is afebrile. Her lactate 0.4. Her chest x-ray shows possible worsening pleural effusion and underlying pneumonia versus atelectasis. Given her symptoms here with the hypoxia will treat her for possible pneumonia. She has been hospitalized recently it will be covered for healthcare associated pneumonia with vancomycin and Zosyn. Patient will require admission. She is in agreement with this plan. Impression is hypoxia and pneumonitis. Time: 05:30 Reevaluation #2: Patient is now satting 93% on the BiPAP. She will be admitted for further man agement. Time: 06:12 - Consultations Consultation #1: Spoke with on-call hospitalist kenton Lopez to admit for hypoxia, pleural effusion, acute on chronic respiratory failure. No further orders at this time Time: 06:21 Vital Signs Temperature 98.4 F 03/02/18 03:02 Pulse Rate 108 03/02/18 03:02 Respiratory Rate 24 03/02/18 03:02 Blood Pressure 113/75 03/02/18 03:02 O2 Sat by Pulse Oximetry 81 03/02/18 03:02 Temperature 98.4 F 03/02/18 03:20 Pulse Rate 83 03/02/18 05:56 Respiratory Rate 14 03/02/18 05:56 Blood Pressure 118/76 03/02/18 05:25 O2 Sat by Pulse Oximetry 98 03/02/18 05:56 Oxygen Delivery Oxygen Delivery Bipap Shortness of Breath/Dyspnea - MDM Narrative Medical decision making narrative: Patient was discussed with my attending physician who agrees with ED management and final disposition. They independently evaluated the patient. Please refer to their attestation to this encounter for additional information. This note was generated by [employer] voice recognition software and as a result grammatical or spelling errors may occur using this program. - Medical Records Medical records reviewed: Yes I reviewed the patient's medical records. - Lab Data Lab results reviewed: Yes I reviewed the patient's lab results. Result diagrams: 03/02/18 03:23 03/02/18 03:23 Lab Results 03/02/18 03/02/18 03/02/18 Range/Units 03:23 03:23 03:23 WBC 12.5 H (4.3-11.1) K/mcL RBC 4.32 (3.82-4.97) M/mcL Hgb 10.9 L (11.5-15.4) g/dL Hct 37.5 (35.3-44.9) % MCV 86.8 (83.0-100.0) fL MCH 25.2 L (28.0-33.3) pg MCHC 29.1 L (31.6-35.5) g/dL RDW 17.3 H (11.5-14.5) % Plt Count 263 (140-400) K/mcL MPV 8.4 L (9.4-12.4) fL Immature Gran % 0.3 (0-4) % Seg Neutrophils % 63.2 % Lymphocytes % 29.8 % Monocytes % 4.6 % Eosinophils % 1.8 % Basophils % 0.3 % Neutrophils # 7.9 (1.6-8.9) K/mcL Lymphocytes # 3.7 (0.6-4.6) K/mcL Monocytes # 0.6 (0.0-1.3) K/mcL Eosinophils # 0.2 (0.0-0.6) K/mcL Basophils # 0.0 (0.0-0.2) K/mcL Sodium 138 (136-145) mEq/L Potassium 4.1 (3.5-5.1) mEq/L Chloride 102 (98-107) mEq/L Carbon Dioxide 29 (23-29) mEq/L BUN 6 (6-20) mg/dL Creatinine 0.84 (0.60-1.20) mg/dL Est GFR ( Amer) > 60 (> 60) Est GFR (Non-Af Amer) > 60 (> 60) BUN/Creatinine Ratio 7 (6-26) Glucose 101 (70-105) mg/dL Calculated Osmolality 284 (280-300) Lactic Acid (0.5-2.2) mmol/L Calcium 8.8 (8.6-10.3) mg/dL Troponin I < 0.03 (< 0.04) ng/mL B-Natriuretic Peptide 25 (Less than 100) pg/mL 03/02/18 Range/Units 04:15 WBC (4.3-11.1) K/mcL RBC (3.82-4.97) M/mcL Hgb (11.5-15.4) g/dL Hct (35.3-44.9) % MCV (83.0-100.0) fL MCH (28.0-33.3) pg MCHC (31.6-35.5) g/dL RDW (11.5-14.5) % Plt Count (140-400) K/mcL MPV (9.4-12.4) fL Immature Gran % (0-4) % Seg Neutrophils % % Lymphocytes % % Monocytes % % Eosinophils % % Basophils % % Neutrophils # (1.6-8.9) K/mcL Lymphocytes # (0.6-4.6) K/mcL Monocytes # (0.0-1.3) K/mcL Eosinophils # (0.0-0.6) K/mcL Basophils # (0.0-0.2) K/mcL Sodium (136-145) mEq/L Potassium (3.5-5.1) mEq/L Chloride (98-107) mEq/L Carbon Dioxide (23-29) mEq/L BUN (6-20) mg/dL Creatinine (0.60-1.20) mg/dL Est GFR ( Amer) (> 60) Est GFR (Non-Af Amer) (> 60) BUN/Creatinine Ratio (6-26) Glucose (70-105) mg/dL Calculated Osmolality (280-300) Lactic Acid 0.4 L (0.5-2.2) mmol/L Calcium (8.6-10.3) mg/dL Troponin I (< 0.04) ng/mL B-Natriuretic Peptide (Less than 100) pg/mL - Radiology Data Radiology results reviewed: Yes I reviewed the patient's radiology results. Chest X-Ray 03/02/18 03:23 IMPRESSION: Increased dense airspace opacification in the right lower lung zone suspected to represent atelectasis or pneumonitis in association with a pleural effusion. D/ / Abelino Yoder MD / Abelino Yoder MD Interpreting Provider: Abelino Yoder MD - EKG Data EKG attestation: Yes I reviewed and interpreted this EKG. EKG results narrative: EKG performed 351, normal sinus rhythm 101 beats per minute, normal axis, good R wave progression, intervals appear within normal limits. Compared to prior EKG performed 02/14/2018 which shows similar consistent findings. No acute isc hemic changes. Attestation Statement - Attestation Attestation: I, Dov Bean DO, examined this patient [id number] and my medical decision-making was reviewed with Hector Fisher DO , Resident Physician. I agree with the documented findings, disposition and treatment plan as described except to the extent set forth below. Please see my progress notes for details.
[2018-03-02 04:22] LABS: Basophils % 0.3 %; Eosinophils # 0.2 K/mcL (0.0-0.6); Eosinophils % 1.8 %; Hematocrit 37.5 % (35.3-44.9); Hemoglobin 10.9 g/dL (11.5-15.4); Immature Granulocytes % 0.3 % (0-4); Lymphocytes # 3.7 K/mcL (0.6-4.6); Lymphocytes % 29.8 %; Mean Corpuscular HGB Conc 29.1 g/dL (31.6-35.5); Mean Corpuscular Hemoglobin 25.2 pg (28.0-33.3); Mean Corpuscular Volume 86.8 fL (83.0-100.0); Mean Platelet Volume 8.4 fL (9.4-12.4); Monocytes # 0.6 K/mcL (0.0-1.3); Monocytes % 4.6 %; Neutrophils # 7.9 K/mcL (1.6-8.9); Platelet Count 263 K/mcL (140-400); Red Blood Count 4.32 M/mcL (3.82-4.97); Red Cell Distribution Width 17.3 % (11.5-14.5); Segmented Neutrophils % 63.2 %
[2018-03-02 04:41] LABS: Troponin I < 0.03 ng/mL (< 0.04)
[2018-03-02 04:44] LABS: BUN/Creatinine Ratio 7 (6-26); Blood Urea Nitrogen 6 mg/dL (6-20); Calcium 8.8 mg/dL (8.6-10.3); Carbon Dioxide 29 mEq/L (23-29); Chloride 102 mEq/L (98-107); Glucose 101 mg/dL (70-105); Osmolality,Calculated 284 (280-300); Potassium 4.1 mEq/L (3.5-5.1); Sodium 138 mEq/L (136-145); eGFR For Non-African Americans > 60 (> 60)
[2018-03-02] MEDS ORDERED: Piperacillin/Tazobactam 3.375 GM in Water for inj. (sterile) 20 ML 20 ML IVP ONE (05:09)
--- NOTE | 2018-03-02 06:50 | Emergency Department Note ---
Disposition Clinical Impression: Pleural effusion, COPD exacerbation, Acute and chronic respiratory failure with hypoxia Disposition: Admitted As Inpatient Condition: Fair Referrals: Mervin Santiago MD [Primary Care Provider] - Time of Disposition: 06:57 General Adult HPI - General Chief complaint: ED Shortness of Breath/Dyspnea Stated complaint: shortness of breath Time Seen by Provider: 03/02/18 03:10 Source: patient Mode of arrival: ambulatory Limitations: no limitations - History of Present Illness Pain Scale: 0 - Related Data Home Medications Medication Instructions Recorded Confirmed ARIPiprazole [Abilify] 30 mg PO DAILY 10/01/14 02/14/18 DULoxetine [Cymbalta] 60 mg PO BID 10/01/14 02/14/18 Ipratropium/Albuterol Neb [Duoneb] 3 ml IH Q6HR PRN 02/03/16 02/14/18 Oxygen 4 l NS CONT 02/03/16 02/14/18 Tiotropium [place] [Spiriva 2 puff IH DAILY 02/03/16 02/14/18 Respimat] Baclofen [Lioresal] 10 mg PO TID 04/19/16 02/14/18 Budesonide/Formoterol 160/4.5 2 puff IH BIDR 07/28/17 02/14/18 [Symbicort 160/4.5] SUMAtriptan Succinate [Imitrex] 100 mg PO DAILY PRN 07/28/17 02/14/18 Esomeprazole Magnesium [Nexium] 40 mg PO DAILY 10/10/17 02/14/18 Gabapentin [Neurontin] 800 mg PO QID 10/10/17 02/14/18 Meloxicam 15 mg PO DAILY PRN 10/10/17 02/14/18 Furosemide [Lasix] 40 mg PO DAILY 02/02/18 02/14/18 Potassium Citrate [Urocit-K] 10 meq PO DAILY 02/02/18 02/14/18 diazePAM [Valium] 10 mg PO Q8H PRN 02/02/18 02/14/18 Albuterol Sulfate [Ventolin Hfa] 1 - 2 puff IH Q4H PRN 02/04/18 02/14/18 Previous Rx's Medication Instructions Recorded Doxycycline 100 mg PO BID #6 capsule 02/09/18 Azithromycin [Zithromax] 500 mg PO Q24H #3 tablet 02/16/18 Allergies Allergy/AdvReac Type Severity Reaction Status Date / Time ketorolac [From Toradol] Allergy Intermediate Weakness Verified 03/02/18 03:05 Pneumococcal Vaccine Allergy Intermediate Rash Verified 03/02/18 03:05 [From Prevnar] tramadol Allergy Intermediate Weakness Verified 03/02/18 03:05 Cefaclor Allergy Rash Verified 03/02/18 03:05 Asenapine [From Saphris] AdvReac See Verified 03/02/18 03:05 Comments lamotrigine [From Lamictal] AdvReac Migraine Verified 03/02/18 03:05 lurasidone [From Latuda] AdvReac See Verified 03/02/18 03:05 Comments Constitutional: Denies: fever, chills ENT ED: Denies: congestion Cardiovascular: Denies: chest pain Respiratory: Reports: cough, dyspnea Gastrointestinal: Denies: abdominal pain, nausea, vomiting Genitourinary: Denies: dysuria Musculoskeletal: Denies: back pain Integumentary: Denies: rash, abrasion Neurological: Denies: headache Past Medical History - Past Medical History Medical history: Reports: arthritis, asthma, COPD, fibromyalgia, GERD, migraine, osteoporosis, renal disease, other Surgical history: Reports: other Psychiatric history: Reports: anxiety, bipolar, depression, other 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: polycystic ovary syndrome, bilateral tubal ligation - Social History Smoking Status: Current every day smoker Smokeless Tobacco Status: No Alcohol use: Reports: rarely Drug use: Reports: marijuana Physical Exam - General Limitations: no limitations General appearance: alert, obese Course Vital Signs Temperature 98.4 F 03/02/18 03:02 Pulse Rate 108 03/02/18 03:02 Respiratory Rate 24 03/02/18 03:02 Blood Pressure 113/75 03/02/18 03:02 O2 Sat by Pulse Oximetry 81 03/02/18 03:02 Temperature 98.4 F 03/02/18 03:20 Pulse Rate 83 03/02/18 05:56 Respiratory Rate 14 03/02/18 05:56 Blood Pressure 118/76 03/02/18 05:25 O2 Sat by Pulse Oximetry 98 03/02/18 05:56 Oxygen Delivery Oxygen Delivery Bipap Medical Decision Making - Lab Data Result diagrams: 03/02/18 03:23 01/17/19 03:23 Lab Results 03/02/18 03/02/18 03/02/18 Range/Units 03:23 03:23 03:23 WBC 12.5 H (4.3-11.1) K/mcL RBC 4.32 (3.82-4.97) M/mcL Hgb 10.9 L (11.5-15.4) g/dL Hct 37.5 (35.3-44.9) % MCV 86.8 (83.0-100.0) fL MCH 25.2 L (28.0-33.3) pg MCHC 29.1 L (31.6-35.5) g/dL RDW 17.3 H (11.5-14.5) % Plt Count 263 (140-400) K/mcL MPV 8.4 L (9.4-12.4) fL Immature Gran % 0.3 (0-4) % Seg Neutrophils % 63.2 % Lymphocytes % 29.8 % Monocytes % 4.6 % Eosinophils % 1.8 % Basophils % 0.3 % Neutrophils # 7.9 (1.6-8.9) K/mcL Lymphocytes # 3.7 (0.6-4.6) K/mcL Monocytes # 0.6 (0.0-1.3) K/mcL Eosinophils # 0.2 (0.0-0.6) K/mcL Basophils # 0.0 (0.0-0.2) K/mcL Sodium 138 (136-145) mEq/L Potassium 4.1 (3.5-5.1) mEq/L Chloride 102 (98-107) mEq/L Carbon Dioxide 29 (23-29) mEq/L BUN 6 (6-20) mg/dL Creatinine 0.84 (0.60-1.20) mg/dL Est GFR ( Amer) > 60 (> 60) Est GFR (Non-Af Amer) > 60 (> 60) BUN/Creatinine Ratio 7 (6-26) Glucose 101 (70-105) mg/dL Calculated Osmolality 284 (280-300) Lactic Acid (0.5-2.2) mmol/L Calcium 8.8 (8.6-10.3) mg/dL Troponin I < 0.03 (< 0.04) ng/mL B-Natriuretic Peptide 25 (Less than 100) pg/mL 03/02/18 Range/Units 04:15 WBC (4.3-11.1) K/mcL RBC (3.82-4.97) M/mcL Hgb (11.5-15.4) g/dL Hct (35.3-44.9) % MCV (83.0-100.0) fL MCH (28.0-33.3) pg MCHC (31.6-35.5) g/dL RDW (11.5-14.5) % Plt Count (140-400) K/mcL MPV (9.4-12.4) fL Immature Gran % (0-4) % Seg Neutrophils % % Lymphocytes % % Monocytes % % Eosinophils % % Basophils % % Neutrophils # (1.6-8.9) K/mcL Lymphocytes # (0.6-4.6) K/mcL Monocytes # (0.0-1.3) K/mcL Eosinophils # (0.0-0.6) K/mcL Basophils # (0.0-0.2) K/mcL Sodium (136-145) mEq/L Potassium (3.5-5.1) mEq/L Chloride (98-107) mEq/L Carbon Dioxide (23-29) mEq/L BUN (6-20) mg/dL Creatinine (0.60-1.20) mg/dL Est GFR ( Amer) (> 60) Est GFR (Non-Af Amer) (> 60) BUN/Creatinine Ratio (6-26) Glucose (70-105) mg/dL Calculated Osmolality (280-300) Lactic Acid 0.4 L (0.5-2.2) mmol/L Calcium (8.6-10.3) mg/dL Troponin I (< 0.04) ng/mL B-Natriuretic Peptide (Less than 100) pg/mL Attestation Statement - Attestation Attestation: I, Dov Bean DO, examined this patient [id number] and my medical decision-making was reviewed with Hector Fisher DO , Resident Physician. I agree with the documented findings, disposition and treatment plan as described except to the extent set forth below. Please see my progress notes for details. 37-year-old female presents to the emergency room for evaluation of shortness of breath and increased work of breathing at home. Patient is been seen and evaluated as well as admitted to this facility within the last 1 week. Patient is poorly controlled COPD and chronic lung related issues. She was seen and evaluated for COPD and pneumonia within the last 2 weeks. Patient was on antibiotics. She went home and continued to smoke and did not utilize her home medications where they were prescribed. She chronically is on 4 L of oxygen by nasal cannula. On arrival here her pulse ox was 81%. Patient increased work of breathing. Denied chest pain, fevers, chills. Denies any productive sputum cough cold or congestion. Denies any nausea vomiting or diarrhea. Denied any other symptoms or complaints outside of the shortness of breath. Patient is morbidly obese and has significant truncal obesity. She has restrictive airway related issues secondary to body habitus. When I went in to evaluate her she was leaning forward with her head slumped forward. Her chin was touching her anterior chest wall and her pulse ox was 88% with good waveform. Patient did not show any acute signs respiratory distress. She was sleeping. Her lungs were clear bilaterally. Heart was regular. Abdomen is soft. She does have pitting edema to the bilateral knees with no signs of redness swelling or irritation. Laboratory workup and imaging was completed showing what appears to be increased interstitial markings and changes in the right lower lung compared to previous exams. Patient is persistently short of breath with exertion. Pneumonia diagnosis was considered at this time. Patient was started on vancomycin and Zosyn secondary to healthcare acquired pneumonia with her most recent admission. Steroids and breathing treatments were given. Patient will require admission for continuation of care and failed outpatient management. See detailed documentation the physical exam, medical intervention, medical decision-making and disposition in the resident physician's note. No critical care provider the patient's treatment course at this time. Patient is otherwise clinically stable. [id number] Patient was discussed with the hospitalist Dr. Shen for admission. No other recommendations or concerns are noted. He is familiar with the patient secondary to the most recent admissions. Patient was placed on BiPAP to help with symptomatic control and structural restriction from her body habitus. Oxygenation resolved with the BiPAP. Vital signs otherwise stable at this time. Admission process has been established. Patient will be monitored in emergency room until admission processes has been completed.
--- NOTE | 2018-03-02 11:10 | Electrocardiograph Report ---
[facility] Test Date: 2018-03-02 Pat Name: Kim Monet Department: [id number] Room: 3B48 Gender: F Network Applications Specialist: : [id number] Requested By: Hector Fisher Order Number: [id number] [place] MD: Mark Tsai Measurements Intervals [place] Rate: 101 P: 139 NH: 124 QRS: 149 QRSD: 84 T: 144 QT: 339 QTc: 440 Interpretive Statements Right and left arm electrode reversal, interpretation assumes no reversal Sinus tachycardia Right axis deviation Low voltage, precordial leads Abnormal T, consider ischemia, lateral leads Electronically Signed On 03-02-2018 11:08:35 EST by Mark Tsai
[2018-03-02] MEDS ORDERED: Naloxone 0.4 MG/ML INJ IVP PRN (11:37)
--- NOTE | 2018-03-02 11:52 | Pulmonology Consult Note ---
<German Reeves - Last Filed: 03/02/18 20:45> Date of Encounter: 03/02/18 Time of Encounter: 09:00 Assessment and Plan (1) Acute respiratory failure Current Visit: Yes Status: Acute -Likely multifactorial because of her baseline COPD, Hx of interstitial lung disease and the fact that patient stop taking her Lasix for the past 2 weeks. -She presented to the ER shortness of breath , decreased oxygen saturation dropping the 70s. -Most recent chest x-ray showed increased density airspace opacity in the right lower lung zone likely representing atelectasis or pneumonitis with pleural effusion. -Physical exam she has decreased breath sounds but no evidence of wheezing, rhonchi or rales. -Continue to be on home oxygen regimen, continue home dose of Lasix 40 mg by mouth BID Incentive spirometry to notify the VQ mismatch secondary to atelectasis. Qualifiers: Qualified Code(s): J96.00 - Acute respiratory failure, unspecified whether with hypoxia or hypercapnia (2) COPD (chronic obstructive pulmonary disease) Current Visit: No Status: Acute -Patient has a history of chronic COPD and is an active smoker. Current an active smoker for the past 30 years although she endorses she has cut down his smoking from a 5 packs per day 5 years ago, to half pack a day now. she endorses her oxygen saturation has been in down to 70s with exertion for the past few days. she is on Ventolin, Spiriva and Symbicort at home for his COPD control. Patient was hospitalized not too long for COPD exacerbatin and pneumonia and was discharged on Z-Akira and 5 day course of prednisone 40 mg. During this admission, she endorses increase in the frequency of dry cough but no productive sputum. -On physical exam she has decreased breath sounds bilaterally but no wheezing rales or rhonchi. -Duoneb PRN. No indication for steroids and antibiotic at the moment because patient is afebrile, and does not seem to be in exacerbation. - Qualifiers: COPD type: COPD with acute exacerbation Qualified Code(s): J44.1 - Chronic obstructive pulmonary disease with (acute) exacerbation (3) Interstitial lung disease Current Visit: No Status: Chronic -Patient has a history of smoking-related interstitial lung disease with biopsy from 03/29/16. -She continues to smoke although she endorses that she has reduced her smoking cessation from a 5 packs a day 5 years ago to half a pack a day right now. -Has been counseled on importance of smoking cessation, has been told to seek advise from her PCP about choices which can help her with smoking cessation like Chantix. (4) Tobacco use Current Visit: Yes Status: Acute Hx of tobacco abuse with associated ILD Counseled pt on importance of cessation >10 minutes Pt states she plans to continue cessation upon discharge (5) Status post thoracotomy Current Visit: No Status: Chronic History of Present Illness History of present illness: 19-year-old female past medical history of COPD presented to the ED because of worsening shortness of breath accompanied with dyspnea for the last few days. Patient is on 4L oxygen at home for his COPD control, and endorses that her oxygen saturation had dropped to 70s in the last couple days. Patient endorses that she was recently discharged from the hospital after pneumonia and was sent home on Z-Akira and prednisone 40 mg for 5 days. She endorses that her symptoms have been the same even after discharged from the hospital and the medications have not helped her. The patient is a history of extensive smoking and states currently she smokes half pack a day. She tells me that recently she has stopped taking a water pill that was prescribed to her at a dose of 40 mg twice a day for the last 17 days. She denies any recent sick contacts or travels. She has not taken a flu shot she breaks into hives. Eyes any fever, chest pain, palpitations, paroxysmal nocturnal dyspnea, difficulty ambulating 2 blocks or climbing flight of stairs . Past Med Surg Social Fam HX - Past Medical History Medical history: arthritis, asthma, COPD, fibromyalgia, GERD, migraine, os teoporosis, renal disease, other Additional medical history: pulmonary fibrosis Psychiatric history: anxiety, bipolar, depression - Past Surgical History Surgical History: other Additional surgical history: Thoracotomy, tubal, tonsilectomy - Social History Smoking Status: Current every day smoker Packs per day: 0.5 Smokeless Tobacco Status: No Alcohol use: rarely Drug use: marijuana - Family History Father Living Status: Hx Family Respiratory Disorders: Yes Hx Family Cancer: Yes (lung) Mother Family Member Ethnicity: Non- Living Status: Still Living Hx Family Cardiac Disorders: Yes (HTN) Hx Family Respiratory Disorders: No Hx Family Cancer: No Hx Family GI Disorders: Yes (Hiatel hernia, GERD) Hx Family Endocrine Disorder: Yes Hx Family Neuromuscular Disorders: Yes (fibromyalgia) Hx Family Neurologic Disorders: No Hx Family HEENT Disorders: No Hx Family Autoimmune Disorders: No Medications and Allergies RX: ARIPiprazole [Abilify] 30 mg PO DAILY 10/01/14 [History] RX: DULoxetine [Cymbalta] 60 mg PO BID 10/01/14 [History] RX: Ipratropium/Albuterol Neb [Duoneb] 3 ml IH Q6HR PRN 02/03/16 [History] RX: Oxygen 4 l NS CONT 02/03/16 [History] RX: Tiotropium [place] [Spiriva Respimat] 2 puff IH DAILY 02/03/16 [History] RX: Baclofen [Lioresal] 10 mg PO TID 04/19/16 [History] RX: Budesonide/Formoterol 160/4.5 [Symbicort 160/4.5] 2 puff IH BIDR 07/28/17 [History] RX: SUMAtriptan Succinate [Imitrex] 100 mg PO DAILY PRN 07/28/17 [History] RX: Esomeprazole Magnesium [Nexium] 40 mg PO DAILY PRN 10/10/17 [History] RX: Gabapentin [Neurontin] 800 mg PO QID 10/10/17 [History] RX: Furosemide [Lasix] 40 mg PO BID 02/02/18 [History] RX: Potassium Citrate [Urocit-K] 10 meq PO DAILY 02/02/18 [History] RX: diazePAM [Valium] 10 mg PO Q8H PRN 02/02/18 [History] RX: Albuterol Sulfate [Ventolin Hfa] 1 - 2 puff IH Q4H PRN 02/04/18 [History] Naproxen 500 mg PO BID PRN 03/02/18 [History] Allergy/AdvReac Type Severity Reaction Status Date / Time ketorolac [From Toradol] Allergy Intermediate Weakness Verified 03/02/18 03:05 Pneumococcal Vaccine Allergy Intermediate Rash Verified 03/02/18 03:05 [From Prevnar] tramadol Allergy Intermediate Weakness Verified 03/02/18 03:05 Cefaclor Allergy Rash Verified 03/02/18 03:05 Asenapine [From Saphris] AdvReac See Verified 03/02/18 03:05 Comments lamotrigine [From Lamictal] AdvReac Migraine Verified 03/02/18 03:05 lurasidone [From Latuda] AdvReac See Verified 03/02/18 03:05 Comments All Systems: The remainder of the systems were reviewed and are negative Physical Examination Vital Signs: Gen.: Vitals noted. No acute distress. Alert, awake and oriented * [address], and time, well developed, well-nourished resting comfortably in bed. Pleasant. HEENT: oropharynx clear, Normocephalic, atraumatic, MMM Neck: supple, no JVD, no lymphadenopathy, no carotid bruit. Cardiac: RRR, no murmur, +S1/S2, No BLE edema, PMI non-displaced Pulmonary: decreased breath sounds bilaterally, no wheezes, rales or rhonchi, equal chest expansion, unlabored breathing Abdomen: soft, nontender, BS noted, no guarding, mildly distended. No organomegaly, no pulsatile masses, Skin: warm and dry, no visible lesions. Feels warm, clammy, no rashes, no lesions, no erythema MSK: ROM not assessed. no joint swelling noted, gait not assessed while in bed. Non tender calf or clubbing, no cyanosis/clubbing/ or edema Neuro: A&O, moves all extremities, no focal deficits, sensation intact Psych: Appropriate mood and behavior, normal speech. Results - Laboratory Findings CBC and BMP: 03/02/18 03:23 03/02/18 03:23 Abnormal lab findings: Abnormal lab results WBC 12.5 K/mcL (4.3-11.1) H 03/02/18 03:23 Hgb 10.9 g/dL (11.5-15.4) L 03/02/18 03:23 MCH 25.2 pg (28.0-33.3) L 03/02/18 03:23 MCHC 29.1 g/dL (31.6-35.5) L 03/02/18 03:23 RDW 17.3 % (11.5-14.5) H 03/02/18 03:23 MPV 8.4 fL (9.4-12.4) L 03/02/18 03:23 Lactic Acid 0.4 mmol/L (0.5-2.2) L 03/02/18 04:15 - Microbiology Findings Microbiology Findings: Microbiology, Last 48 Hours 03/02/18 04:06 Blood Culture - Preliminary Peripheral Venipuncture Culture is incubating and being continuously monitored for growth. Final report to follow. 03/02/18 04:15 Blood Culture - Preliminary Peripheral Venipuncture Culture is incubating and being continuously monitored for growth. Final report to follow. - Clinical Findings Intake & Output: Intake & Output 03/01/18 03/02/18 03/02/18 23:59 07:59 15:59 Intake Total Balance Weight 142.5 kg Consult Discharge Plan - Plan Referrals: Mervin Santiago MD [Primary Care Provider] - <Suzan Bhagat - Last Filed: 03/03/18 23:30> Date of Encounter: 03/03/18 All Systems: The remainder of the systems were reviewed and are negative Physical Examination Vital Signs: Vital Signs, Last 4 Hours Temp Pulse Resp BP Pulse Ox 03/02/18 16:06 18 88 03/02/18 15:36 97.7 F 107 17 131/77 85 Results - Laboratory Findings CBC and BMP: 03/03/18 04:41 03/03/18 04:41 ABG ABG pH 7.34 pH Units (7.32-7.45) 03/02/18 12:27 ABG pCO2 67 mmHg (35-45) H 03/02/18 12:27 ABG pO2 65 mmHg (85-104) L 03/02/18 12:27 ABG O2 Saturation 90 % (95-98) L 03/02/18 12:27 Abnormal lab findings: Abnormal lab results WBC 12.5 K/mcL (4.3-11.1) H 03/02/18 03:23 Hgb 10.9 g/dL (11.5-15.4) L 03/02/18 03:23 MCH 25.2 pg (28.0-33.3) L 03/02/18 03:23 MCHC 29.1 g/dL (31.6-35.5) L 03/02/18 03:23 RDW 17.3 % (11.5-14.5) H 03/02/18 03:23 MPV 8.4 fL (9.4-12.4) L 03/02/18 03:23 ABG pCO2 67 mmHg (35-45) H 03/02/18 12:27 ABG pO2 65 mmHg (85-104) L 03/02/18 12:27 ABG HCO3 36 mEq/L (21-27) H 03/02/18 12:27 ABG Total CO2 38 mEq/L (20-26) H 03/02/18 12:27 ABG O2 Saturation 90 % (95-98) L 03/02/18 12:27 ABG Base Excess 8 mEq/L (-2 to 3) H 03/02/18 12:27 Lactic Acid 0.4 mmol/L (0.5-2.2) L 03/02/18 04:15 - Microbiology Findings Microbiology Findings: Microbiology, Last 48 Hours 03/02/18 04:06 Blood Culture - Preliminary Peripheral Venipuncture Culture is incubating and being continuously monitored for growth. Final report to follow. 03/02/18 04:15 Blood Culture - Preliminary Peripheral Venipuncture Culture is incubating and being continuously monitored for growth. Final report to follow. - Clinical Findings Intake & Output: Intake & Output 03/02/18 03/02/18 03/02/18 07:59 15:59 23:59 Intake Total 700 / 700 Balance 700 / 700 Weight 142.5 kg - Attending Attestation I examined this patient and my medical decision-making was reviewed with the Resident Physician. I agree with the documented findings, disposition and treatment plan as described except to the extent set forth below. Patient seen and examined. Labs, radiology, chart personally reviewed. 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 I have explained to patient extensively that she needs to quit smoking. I do not feel strongly patient is on antibiotics. She can be on systemic steroid and no tapering at this time. Patient with acute on chronic respiratory failure and she is feeling better at this time. This was discussed with primary team and keep SPO2 around 90%. Discussed with primary team and she was referred as outpatient to [facility] for second opinion because she keep coming back and get re-addmitted. I feel strong her problem is smoking and explained to patient that is why she is feeling better in the hospital, because she doesn't smoke and she understand that. If patient wants, perhaps transferring her as inpatient for second opinion is reasonable. Cardiovascular: stable
[2018-03-02 12:30] LABS: ABG Base Excess 8 mEq/L (-2 to 3); ABG HCO3 36 mEq/L (21-27); ABG Oxygen Saturation 90 % (95-98); ABG PCO2 67 mmHg (35-45); ABG PH 7.34 pH Units (7.32-7.45); ABG PO2 65 mmHg (85-104); ABG TCO2 38 mEq/L (20-26)
[2018-03-02] MEDS: Ipratropium/Albuterol Neb 3 ML IH SCH ×3 (12:53→20:40)
[2018-03-02] MEDS: methylPREDNISolone 125 MG/2 ML VIAL IVP SCH ×2 (17:17→23:24)
--- NOTE | 2018-03-02 17:26 | Internal Med History&Physical ---
Date of Encounter: 03/02/18 Time of Encounter: 11:00 Internal Medicine - H&P: HPI Chief complaint: Shortness of breath Admitted From: Home Plans for Post Hospital Care: Home History of present illness: Patient is a 29-year-old female with past medical history significant for chronic hypoxic respiratory failure secondary to interstitial lung disease with right thoracotomy in 2016 presents to the ER on 03/02/18 for progressively worsening dyspnea and dyspnea on exertion. She reports of her sling shortness of breath over the last month in addition to increased dyspnea on exertion with hypoxia and a last 3-4 days. Patient denies any cough or fever/chills in addition to denying any upper respiratory symptoms. She was concerned so decided to come to the ER for evaluation. In the ER, an ABG revealed patient with a PCO2 of 67 and PaO2 of 65 with a pH of 7.34 Chest x-ray showed increase dense airspace opacification in the right lower lung sound with concerning for atelectasis versus pneumonitis associated with pleural effusion. She also found to have a slight elevation in WBC at 12.5. Patient was given 1 dose of IV vancomycin and IV Zosyn in addition to IV Solu- Medrol in the ER. She will be admitted to medical surgical floor for acute on chronic hypoxic/hypercapnic respiratory failure with concerns for pneumonia. Past Med Surg Social Fam HX - Past Medical History Medical history: arthritis, asthma, COPD, fibromyalgia, GERD, migraine, osteoporosis, renal disease, other Additional medical history: pulmonary fibrosis Psychiatric history: anxiety, bipolar, depression - Past Surgical History Surgical History: other Additional surgical history: Thoracotomy, tubal, tonsilectomy - Social History Smoking Status: Current every day smoker Packs per day: 0.5 Smokeless Tobacco Status: No Alcohol use: rarely Drug use: marijuana - Family History Mother Family Member Ethnicity: Non- Living Status: Still Living Hx Family Cardiac Disorders: Yes (HTN) Hx Family Respiratory Disorders: No Hx Family Cancer: No Hx Family GI Disorders: Yes (Hiatel hernia, GERD) Hx Family Endocrine Disorder: Yes Hx Family Neuromuscular Disorders: Yes (fibromyalgia) Hx Family Neurologic Disorders: No Hx Family HEENT Disorders: No Hx Family Autoimmune Disorders: No Father Living Status: Hx Family Respiratory Disorders: Yes Hx Family Cancer: Yes (lung) Internal Medicine - H&P: Meds ARIPiprazole [Abilify] 30 mg PO DAILY 10/01/14 [History] DULoxetine [Cymbalta] 60 mg PO BID 10/01/14 [History] Ipratropium/Albuterol Neb [Duoneb] 3 ml IH Q6HR PRN 02/03/16 [History] Oxygen 4 l NS CONT 02/03/16 [History] Tiotropium [place] [Spiriva Respimat] 2 puff IH DAILY 02/03/16 [History] Baclofen [Lioresal] 10 mg PO TID 04/19/16 [History] Budesonide/Formoterol 160/4.5 [Symbicort 160/4.5] 2 puff IH BIDR 07/28/17 [History] SUMAtriptan Succinate [Imitrex] 100 mg PO DAILY PRN 07/28/17 [History] Esomeprazole Magnesium [Nexium] 40 mg PO DAILY 10/10/17 [History] Gabapentin [Neurontin] 800 mg PO QID 10/10/17 [History] Meloxicam 15 mg PO DAILY PRN 10/10/17 [History] Furosemide [Lasix] 40 mg PO DAILY 02/02/18 [History] Potassium Citrate [Urocit-K] 10 meq PO DAILY 02/02/18 [History] diazePAM [Valium] 10 mg PO Q8H PRN 02/02/18 [History] Albuterol Sulfate [Ventolin Hfa] 1 - 2 puff IH Q4H PRN 02/04/18 [History] Doxycycline 100 mg PO BID #6 capsule 02/09/18 [Rx] Azithromycin [Zithromax] 500 mg PO Q24H #3 tablet 02/16/18 [Rx] Allergy/AdvReac Type Severity Reaction Status Date / Time ketorolac [From Toradol] Allergy Intermediate Weakness Verified 03/02/18 03:05 Pneumococcal Vaccine Allergy Intermediate Rash Verified 03/02/18 03:05 [From Prevnar] tramadol Allergy Intermediate Weakness Verified 03/02/18 03:05 Cefaclor Allergy Rash Verified 03/02/18 03:05 Asenapine [From Saphris] AdvReac See Verified 03/02/18 03:05 Comments lamotrigine [From Lamictal] AdvReac Migraine Verified 03/02/18 03:05 lurasidone [From Latuda] AdvReac See Verified 03/02/18 03:05 Comments All Systems PM: A 10-system review of systems was performed and is negative for pertinent fin dings except as documented above in the HPI. - Constitutional Vitals: Temp Pulse Resp BP Pulse Ox 97.7 F 107 18 131/77 88 03/02/18 15:36 03/02/18 15:36 03/02/18 16:06 03/02/18 15:36 03/02/18 16:06 General appearance: Present: A&O X 3, no acute distress Exam: As above - Head Head exam: Present: normocephalic - Eye Eye exam: Present: normal appearance - ENT ENT exam: Present: mucous membranes moist - Respiratory Respiratory exam: Present: CTAB. Absent: accessory muscle use, rales, respiratory distress, rhonchi, wheezes - Cardiovascular Cardiovascular exam: Present: RRR, +S1, +S2. Absent: diastolic murmur, gallop, rubs, systolic murmur - GI/Abdominal GI/Abdominal exam: Present: normal bowel sounds, soft, no peritoneal signs. Absent: distended, tenderness - Extremities Exam Extremities exam: Absent: pedal edema - Neurological Exam Neurological exam: Present: oriented X3 - Psychiatric Psychiatric exam: Present: normal mood - Skin Skin exam: Present: normal color Internal Med - H&P Results - Labs CBC & Chem 7: 03/02/18 03:23 03/02/18 03:23 Labs: Short CBC 03/02/18 Range/Units 03:23 WBC 12.5 H (4.3-11.1) K/mcL Hgb 10.9 L (11.5-15.4) g/dL Hct 37.5 (35.3-44.9) % Plt Count 263 (140-400) K/mcL Neutrophils # 7.9 (1.6-8.9) K/mcL BMP 03/02/18 03:23 Sodium 138 Potassium 4.1 Chloride 102 Carbon Dioxide 29 BUN 6 Creatinine 0.84 Glucose 101 Calcium 8.8 Cardiac Enzymes 03/02/18 Range/Units 03:23 Troponin I < 0.03 (< 0.04) ng/mL - ABG Interpretation ABG results: 03/02/18 12:27 ABG pH 7.34 ABG pCO2 67 H ABG pO2 65 L ABG HCO3 36 H ABG Total CO2 38 H ABG O2 Saturation 90 L ABG Base Excess 8 H - Impressions ITS Impressions Chest X-Ray 03/02/18 03:23 IMPRESSION: Increased dense airspace opacification in the right lower lung zone suspected to represent atelectasis or pneumonitis in association with a pleural effusion. D/ / Abelino Yoder MD / Abelino Yoder MD Interpreting Provider: Abelino Yoder MD - Assessment and plan (1) Acute on chronic respiratory failure with hypoxia and hypercapnia Current Visit: Yes Status: Acute Assessment and plan: In the ER, an ABG revealed patient with a PCO2 of 67 and PaO2 of 65 with a pH of 7.34 Unclear if etiologies due to worsening interstitial lung disease versus pneumonia/COPD exacerbation Patient still requiring higher amounts of supplemental oxygenation Pulmonology consulted and appreciate recommendations. (2) COPD exacerbation Current Visit: Yes Status: Acute Assessment and plan: In the ER, chest x-ray showed increase dense airspace opacification in the right lower lung sound with concerning for atelectasis versus pneumonitis associated with pleural effusion. She also found to have a slight elevation in WBC at 12.5. Due to concerns for pneumonia, we will continue IV vancomycin and IV Zosyn in addition to IV Solu-Medrol and scheduled DuoNeb's (3) Interstitial lung disease Current Visit: No Status: Chronic Assessment and plan: Patient being followed by pulmonology as an outpatient Due to presentation of acute on chronic hypoxic/hypercapnic respiratory failure as above, pulmonology has been consulted and appreciate recommendations (4) Status post thoracotomy Current Visit: No Status: Chronic Assessment and plan: Patient status post right thoracotomy in 2016 (5) Tobacco use Current Visit: Yes Status: Acute Assessment and plan: Patient reports smoking 5 packs a day but recently has cut down Nicotine replacement offered (6) DVT prophylaxis Current Visit: No Status: Resolved Assessment and plan: Subcutaneous heparin - Time Spent With Patient Total time spent is greater than 50% in coordination of care (as documented) at patient's floor/unit and/or counseling patient:
[2018-03-02] MEDS ORDERED: SUMAtriptan succinate 50 MG TABLET PO PRN (20:25)
[2018-03-02] MEDS ORDERED: Ipratropium/Albuterol Neb 3 ML IH PRN (20:25)
[2018-03-02] MEDS: Budesonide/Formoterol 160/4.5 1 PUFF INH IH SCH (20:40)
[2018-03-02] MEDS: diazePAM 10 MG TABLET PO PRN (21:15)
[2018-03-02] MEDS: Gabapentin 400 MG CAPSULE PO SCH (21:15)
[2018-03-02] MEDS: *HR* Heparin 5,000 UNIT/ML VIAL SQ SCH (21:16)
[2018-03-02] MEDS: Furosemide 40 MG TABLET PO SCH (21:16)
[2018-03-02] MEDS: Piperacillin/Tazobactam 3.375 GM in 0.9 % Sodium Chloride Mini Bag 100 ML IVPB SCH (23:26)
[2018-03-03] MEDS: Ipratropium/Albuterol Neb 3 ML IH SCH ×7 (00:27→23:11)
[2018-03-03] MEDS: methylPREDNISolone 125 MG/2 ML VIAL IVP SCH ×2 (04:49→10:18)
[2018-03-03] MEDS: *HR* Heparin 5,000 UNIT/ML VIAL SQ SCH ×3 (04:49→21:09)
[2018-03-03 05:10] LABS: Hematocrit 35.6 % (35.3-44.9); Hemoglobin 10.5 g/dL (11.5-15.4); Mean Corpuscular HGB Conc 29.5 g/dL (31.6-35.5); Mean Corpuscular Hemoglobin 24.8 pg (28.0-33.3); Mean Platelet Volume 9.3 fL (9.4-12.4); Platelet Count 260 K/mcL (140-400); Red Blood Count 4.24 M/mcL (3.82-4.97); Red Cell Distribution Width 16.8 % (11.5-14.5)
[2018-03-03 05:25] LABS: BUN/Creatinine Ratio 15 (6-26); Blood Urea Nitrogen 13 mg/dL (6-20); Calcium 8.7 mg/dL (8.6-10.3); Carbon Dioxide 30 mEq/L (23-29); Chloride 96 mEq/L (98-107); Glucose 317 mg/dL (70-105); Osmolality,Calculated 290 (280-300); Sodium 134 mEq/L (136-145); eGFR For Non-African Americans > 60 (> 60)
[2018-03-03] MEDS: Tiotropium 18 MCG inhalation IH SCH (07:48)
[2018-03-03] MEDS: Budesonide/Formoterol 160/4.5 1 PUFF INH IH SCH ×2 (07:48→20:50)
[2018-03-03] MEDS: Potassium Citrate 10 MEQ TABLET.ER PO SCH (08:19)
[2018-03-03] MEDS: Gabapentin 400 MG CAPSULE PO SCH ×4 (08:19→21:09)
[2018-03-03] MEDS: Furosemide 40 MG TABLET PO SCH (08:19)
[2018-03-03] MEDS: diazePAM 10 MG TABLET PO PRN ×2 (08:25→15:59)
[2018-03-03] MEDS ORDERED: Levofloxacin 750 MG/150 ML 750 MG/150 ML BAG IVPB SCH (09:00)
[2018-03-03] MEDS: Piperacillin/Tazobactam 3.375 GM in 0.9 % Sodium Chloride Mini Bag 100 ML IVPB SCH ×2 (10:01→15:50)
[2018-03-03] MEDS: Baclofen 10 MG TABLET PO SCH ×3 (10:19→21:08)
--- NOTE | 2018-03-03 10:49 | Electrocardiograph Report ---
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
--- NOTE | 2018-03-03 11:04 | Pulmonology Progress Note ---
<Suzan Bhagat M - Last Filed: 03/03/18 15:57> Date of Encounter: 03/03/18 Objective PUL Vital signs: Last Vital Signs Temp 98.2 F 03/03/18 15:12 Pulse 108 03/03/18 15:12 Resp 17 03/03/18 15:12 BP 131/84 03/03/18 15:12 Pulse Ox 89 03/03/18 15:12 Results - Laboratory Findings CBC and BMP: 03/03/18 04:41 03/03/18 04:41 ABG ABG pH 7.34 pH Units (7.32-7.45) 03/02/18 12:27 ABG pCO2 67 mmHg (35-45) H 03/02/18 12:27 ABG pO2 65 mmHg (85-104) L 03/02/18 12:27 ABG O2 Saturation 90 % (95-98) L 03/02/18 12:27 Abnormal lab findings: Abnormal lab results Hgb 10.5 g/dL (11.5-15.4) L 03/03/18 04:41 MCH 24.8 pg (28.0-33.3) L 03/03/18 04:41 MCHC 29.5 g/dL (31.6-35.5) L 03/03/18 04:41 RDW 16.8 % (11.5-14.5) H 03/03/18 04:41 MPV 9.3 fL (9.4-12.4) L 03/03/18 04:41 ABG pCO2 67 mmHg (35-45) H 03/02/18 12:27 ABG pO2 65 mmHg (85-104) L 03/02/18 12:27 ABG HCO3 36 mEq/L (21-27) H 03/02/18 12:27 ABG Total CO2 38 mEq/L (20-26) H 03/02/18 12:27 ABG O2 Saturation 90 % (95-98) L 03/02/18 12:27 ABG Base Excess 8 mEq/L (-2 to 3) H 03/02/18 12:27 Sodium 134 mEq/L (136-145) L 03/03/18 04:41 Chloride 96 mEq/L (98-107) L 03/03/18 04:41 Carbon Dioxide 30 mEq/L (23-29) H 03/03/18 04:41 Glucose 317 mg/dL (70-105) H 03/03/18 04:41 Lactic Acid 0.4 mmol/L (0.5-2.2) L 03/02/18 04:15 - Microbiology Findings Microbiology Findings: Microbiology, Last 48 Hours 03/02/18 04:06 Blood Culture - Preliminary Peripheral Venipuncture Culture is incubating and being continuously monitored for growth. Final report to follow. 03/02/18 04:15 Blood Culture - Preliminary Peripheral Venipuncture Culture is incubating and being continuously monitored for growth. Final report to follow. - Clinical Findings Intake & Output: Intake & Output 03/02/18 03/03/18 03/03/18 23:59 07:59 15:59 Intake Total 1240 / 1240 100 / 100 340 / 340 Output Total 800 / 800 600 / 600 Balance 1240 / 1240 -700 / -700 -260 / -260 Weight 143.5 kg Consult Discharge Plan - Plan Referrals: Mervin Santiago MD [Primary Care Provider] - - Attending Attestation I examined this patient and my medical decision-making was reviewed with the Resident Physician. I agree with the documented findings, disposition and treatment plan as described except to the extent set forth below. Patient seen and examined. Labs, radiology, chart personally reviewed. Agree with resident's history and physical, assessment, plan with following comments: PROBATE CLERK: Patient follows commands, Pulmonary: Acceptable oxygenation and ventilation. I do not feel strongly patient needs to be on broad-spectrum antibiotics and this is most likely because unfortunately patient is not able to quit smoking and also her an anxiety. I have explained this to her in detail. I would recommend to switch her to oral prednisone tomorrow or upon discharge and to continue slow tapering and tell she follows up then [facility] as she was scheduled in outpatient setting. <German Reeves - Last Filed: 03/03/18 17:41> Date of Encounter: 03/03/18 Time of Encounter: 11:00 Assessment and Plan (1) Acute respiratory failure Current Visit: Yes Status: Acute -Likely multifactorial because of her baseline COPD, Hx of interstitial lung disease and the fact that patient stop taking her Lasix for the past 2 weeks. -She presented to the ER shortness of breath , decreased oxygen saturation dropping the 70s. -Most recent chest x-ray showed increased density airspace opacity in the right lower lung zone likely representing atelectasis or pneumonitis with pleural effu sandra. -Physical exam she has decreased breath sounds but no evidence of wheezing, rhonchi or rales. Currently she is on 7-8 L of oxygen currently at 92%. -Continue to be on home oxygen regimen, continue home dose of Lasix 40 mg by mouth BID Incentive spirometry to notify the VQ mismatch secondary to atelectasis. Qualifiers: Qualified Code(s): J96.00 - Acute respiratory failure, unspecified whether with hypoxia or hypercapnia (2) COPD (chronic obstructive pulmonary disease) Current Visit: No Status: Acute -Patient has a history of chronic COPD and is an active smoker. Current an active smoker for the past 30 years although she endorses she has cut down his smoking from a 5 packs per day 5 years ago, to half pack a day now. she endorses her oxygen saturation has been in down to 70s with exertion for the past few days. she is on Ventolin, Spiriva and Symbicort at home for his COPD control. Patient was hospitalized not too long for COPD exacerbatin and pneumonia and was discharged on Z-Akira and 5 day course of prednisone 40 mg. During this admission, she endorses increase in the frequency of dry cough but no productive sputum. -On physical exam she has decreased breath sounds bilaterally but no wheezing rales or rhonchi. -Duoneb PRN. No indication for santibiotic at the moment because patient is afebrile, and does not seem to be in exacerbation. Patient transitioned to oral steroids. Qualifiers: COPD type: COPD with acute exacerbation Qualified Code(s): J44.1 - Chronic obstructive pulmonary disease with (acute) exacerbation (3) Interstitial lung disease Current Visit: No Status: Chronic -Patient has a history of smoking-related interstitial lung disease with biopsy from 03/29/16. -She continues to smoke although she endorses that she has reduced her smoking cessation from a 5 packs a day 5 years ago to half a pack a day right now. -Has been counseled on importance of smoking cessation, has been told to seek advise from her PCP about choices which can help her with smoking cessation like Chantix. (4) Tobacco use Current Visit: Yes Status: Acute Hx of tobacco abuse with associated ILD Counseled pt on importance of cessation >10 minutes Pt states she plans to continue cessation upon discharge (5) Status post thoracotomy Current Visit: No Status: Chronic Subjective Interval history: 37 year old female with past medical history of arthritis, asthma, COPD, fibromyalgia, GERD, migraines, osteoporosis, renal disease, anxiety, bipolar, depression, and PCOS presents to the ED for shortness of breath and increased work of breathing. Patient states she feels somewhat better. She reports continued cough and shortness of breath which is her baseline. She is now at 8 L NC O2 and saturating well at 95%. Denies any orthopnea, paroxysmal nocturnal dyspnea, hemoptysis, fever, nausea or vomiting. Objective PUL Vital signs: Last Vital Signs Temp 97.8 F 03/03/18 10:57 Pulse 111 03/03/18 10:57 Resp 13 03/03/18 10:57 BP 133/86 03/03/18 10:57 Pulse Ox 96 03/03/18 10:57 Gen.: Vitals noted. No acute distress. Alert, awake and oriented * [address], and time, well developed, well-nourished resting comfortably in bed. HEENT: oropharynx clear, Normocephalic, atraumatic, MMM Neck: supple, no JVD, no lymphadenopathy, no carotid bruit. Cardiac: RRR, no murmur, +S1/S2, No BLE edema, PMI non-displaced Pulmonary: decreased breath sounds bilaterally, no wheezes, rales or rhonchi, equal chest expansion, unlabored breathing Abdomen: soft, nontender, BS noted, no guarding, mildly distended. No organomegaly, no pulsatile masses, Skin: warm and dry, no visible lesions. Feels warm, clammy, no rashes, no lesions, no erythema MSK: ROM not assessed. no joint swelling noted, gait not assessed while in bed. Non tender calf or clubbing, no cyanosis/clubbing/ or edema Neuro: A&O, moves all extremities, no focal deficits, sensation intact Psych: Appropriate mood and behavior, normal speech. Results - Laboratory Findings CBC and BMP: 03/03/18 04:41 03/03/18 04:41 ABG ABG pH 7.34 pH Units (7.32-7.45) 03/02/18 12:27 ABG pCO2 67 mmHg (35-45) H 03/02/18 12:27 ABG pO2 65 mmHg (85-104) L 03/02/18 12:27 ABG O2 Saturation 90 % (95-98) L 03/02/18 12:27 Abnormal lab findings: Abnormal lab results Hgb 10.5 g/dL (11.5-15.4) L 03/03/18 04:41 MCH 24.8 pg (28.0-33.3) L 03/03/18 04:41 MCHC 29.5 g/dL (31.6-35.5) L 03/03/18 04:41 RDW 16.8 % (11.5-14.5) H 03/03/18 04:41 MPV 9.3 fL (9.4-12.4) L 03/03/18 04:41 ABG pCO2 67 mmHg (35-45) H 03/02/18 12:27 ABG pO2 65 mmHg (85-104) L 03/02/18 12:27 ABG HCO3 36 mEq/L (21-27) H 03/02/18 12:27 ABG Total CO2 38 mEq/L (20-26) H 03/02/18 12:27 ABG O2 Saturation 90 % (95-98) L 03/02/18 12:27 ABG Base Excess 8 mEq/L (-2 to 3) H 03/02/18 12:27 Sodium 134 mEq/L (136-145) L 03/03/18 04:41 Chloride 96 mEq/L (98-107) L 03/03/18 04:41 Carbon Dioxide 30 mEq/L (23-29) H 03/03/18 04:41 Glucose 317 mg/dL (70-105) H 03/03/18 04:41 Lactic Acid 0.4 mmol/L (0.5-2.2) L 03/02/18 04:15 - Microbiology Findings Microbiology Findings: Microbiology, Last 48 Hours 03/02/18 04:06 Blood Culture - Preliminary Peripheral Venipuncture Culture is incubating and being continuously monitored for growth. Final report to follow. 03/02/18 04:15 Blood Culture - Preliminary Peripheral Venipuncture Culture is incubating and being continuously monitored for growth. Final report to follow. - Clinical Findings Intake & Output: Intake & Output 01/03/03/18 03/03/18 23:59 07:59 15:59 Intake Total 1240 / 1240 100 / 100 Output Total 800 / 800 600 / 600 Balance 1240 / 1240 -700 / -700 -600 / -600 Weight 143.5 kg
--- NOTE | 2018-03-03 12:14 | Internal Med Progress Note ---
<JesusitalettyNakul ramirez - Last Filed: 03/03/18 12:12> Date of Encounter: 03/03/18 Time of Encounter: 09:10 - Assessment and plan (1) Acute on chronic respiratory failure with hypoxia and hypercapnia Current Visit: Yes Status: Acute Assessment and plan: Etiology possibly due to worsening interstitial lung disease versus pneumonia versus COPD exacerbation. ABG shows a pH of 7.34, PCO2 of 67, and a PO2 of 65, and bicarbonate 36. Most recent chest x-ray showed increased density airspace opacity in the right lower lung zone likely representing atelectasis or pneumonitis with pleural effusion. Her oxygen demand has increased from 7 L to 8 L and currently at 92%. - Continue oxygen supplementation. - Pulmonology on board. - Continue to be on home oxygen regimen, continue home dose of Lasix 40 mg by mouth BID Incentive spirometry to notify the VQ mismatch secondary to atelectasis. - Recommend using BiPAP at night. (2) COPD with acute exacerbation Current Visit: No Status: Acute Assessment and plan: Patient is an active smoker. Used to smoke 5 packs per day 5 years ago. At home she is on Ventolin, Spiriva, and Symbicort for COPD control. She was recently hospitalized for COPD exacerbation and pneumonia on 02/16/18 and discharged with the Z-Akira and 5 day course of prednisone. Patient was started on solu-medrol. - Taper solu-medrol down to 40 mg q8H. - Day 2 of levofloxacin, zosyn, and vancomycin. Blood cultures are pending. - Continue spiriva, symbicort, and albuterol PRN. (3) Interstitial lung disease Current Visit: No Status: Chronic Assessment and plan: Diagnosed 03/29/16. Patient continues to smoke. Counseled on the importance of smoking cessation. (4) Bilateral lower extremity edema Current Visit: Yes Status: Acute Assessment and plan: Stopped taking her lasix for 2 weeks. I = 100 and O = 1400 ml. - Continue lasix 40 mg PO BID. - Daily weights. - Continue to monitor I/O's. (5) Hyperglycemia Current Visit: Yes Status: Acute Assessment and plan: Likely secondary to steroids. - started on low-dose ISS. (6) DVT prophylaxis Current Visit: No Status: Acute Assessment and plan: Heparin 5000 U SQ BID - Subjective Interval history: Patient says her shortness of breath is improved. She denies any chest pain. She says her coughing is improved as well although she still does have some minimal cough that is productive and clear. She denies any fever, nausea, or vomiting. Denies any hemoptysis. Denies any abdominal pain. Denies any dysuria or hematuria. Denies any dizziness. She also says the swelling in her legs has improved. - Constitutional Vitals: Temp Pulse Resp BP Pulse Ox 97.8 F 111 18 133/86 92 03/03/18 10:57 03/03/18 10:57 03/03/18 11:43 03/03/18 10:57 03/03/18 11:43 General appearance: Present: A&O X 3, no acute distress, answers questions vania ropriately - Respiratory Respiratory exam: Present: wheezes (Mild end expiratory wheezing bilaterally.). Absent: accessory muscle use, respiratory distress, rhonchi, tachypnea - Cardiovascular Cardiovascular exam: Present: +S1, +S2, tachycardia. Absent: diastolic murmur, gallop, rubs, systolic murmur - GI/Abdominal GI/Abdominal exam: Present: normal bowel sounds, soft, no peritoneal signs. Absent: distended, tenderness - Extremities Exam Extremities exam: Present: normal capillary refill, warm, radial pulses palpable and symmetrical. Absent: calf tenderness, cyanotic, pedal edema, tenderness Internal Medicine: Result - Labs CBC & Chem 7: 03/03/18 04:41 03/03/18 04:41 Labs: Short CBC 03/03/18 Range/Units 04:41 WBC 9.2 (4.3-11.1) K/mcL Hgb 10.5 L (11.5-15.4) g/dL Hct 35.6 (35.3-44.9) % Plt Count 260 (140-400) K/mcL BMP 03/03/18 04:41 Sodium 134 L Potassium 4.0 Chloride 96 L Carbon Dioxide 30 H BUN 13 Creatinine 0.89 Glucose 317 H Calcium 8.7 - ABG Interpretation ABG results: ABG ABG pH 7.34 pH Units (7.32-7.45) 03/02/18 12:27 ABG pCO2 67 mmHg (35-45) H 03/02/18 12:27 ABG pO2 65 mmHg (85-104) L 03/02/18 12:27 ABG O2 Saturation 90 % (95-98) L 03/02/18 12:27 Consult Discharge Plan - Plan Referrals: Mervin Santiago MD [Primary Care Provider] - <Ashley Goel - Last Filed: 03/03/18 15:09> Date of Encounter: 03/03/18 - Constitutional Vitals: Temp Pulse Resp BP Pulse Ox 97.8 F 111 18 133/86 92 03/03/18 10:57 03/03/18 10:57 03/03/18 11:43 03/03/18 10:57 03/03/18 11:43 Internal Medicine: Result - Labs CBC & Chem 7: 03/03/18 04:41 03/03/18 04:41 Labs: Short CBC 03/03/18 Range/Units 04:41 WBC 9.2 (4.3-11.1) K/mcL Hgb 10.5 L (11.5-15.4) g/dL Hct 35.6 (35.3-44.9) % Plt Count 260 (140-400) K/mcL BMP 03/03/18 04:41 Sodium 134 L Potassium 4.0 Chloride 96 L Carbon Dioxide 30 H BUN 13 Creatinine 0.89 Glucose 317 H Calcium 8.7 - ABG Interpretation ABG results: ABG ABG pH 7.34 pH Units (7.32-7.45) 03/02/18 12:27 ABG pCO2 67 mmHg (35-45) H 03/02/18 12:27 ABG pO2 65 mmHg (85-104) L 03/02/18 12:27 ABG O2 Saturation 90 % (95-98) L 03/02/18 12:27 - Attending Attestation I examined this patient and my medical decision-making was reviewed with the Resident Physician Dr. Downing. I agree with the documented findings, disposition and treatment plan as described except to the extent set forth below. Ms. Watson is a 37 y.o F with known PMH of asthma, COPD, Fibromyalgia, GERD and chronic hypoxic resp failure who is on 4 lit O2 at home pt presented to ER with worsening SOB, cough with expectoration. She was recently admitted her with PNA and treated with Abx and steroids. Pt is still actively smoking 1/2PPD. She was admitted in the hospital and placed on empirical antibiotic as well as systematic steroids. Patient stated she is little better today. Gen: A, A, O x 3 Chest: Diminished BS B/l, moderate wheezing, no crackles no rales Heart: S1S2+ RRR No murmurs Ext: b/l LE edema a/p 1. Acute on chronic hypoxic respiratory failure 2. Acute COPD / interstitial disease exacerbation 3. Acute pneumonia - mostly bacterial cont empirical abx cont bronchodilator start tapering systematic steroids appreciate pulmonary recommendations 4. b/l LE edema 5. Acute on chronic diastolic CHF exacerbation will switch to IV lasix resumed all other home meds Patient does need to stay in the hospital more than 2 midnights due to her complex medical problems. So we will change her to full admission today. I did review my colleague H & P including HPI, PMH, PSH, FH, SH, and ROS no changes noticed
[2018-03-03] MEDS ORDERED: D5% in Water 1,000 ML IVC PRN (12:16)
[2018-03-03] MEDS ORDERED: Dextrose Gel 15 GM/37.5 ML TUBE PO PRN ×2 (12:16)
[2018-03-03] MEDS ORDERED: *HR* Dextrose 50 % in Water (Syg) 50 ML SYRINGE IVP PRN (12:16)
[2018-03-03] MEDS ORDERED: Aminoglycoside Consult 1 EACH MC ONE (12:51)
[2018-03-03] MEDS ORDERED: methylPREDNISolone 125 MG/2 ML VIAL IVP SCH (16:00)
--- NOTE | 2018-03-03 16:23 | Event Note ---
Date of Encounter: 03/03/18 Time of Encounter: 16:21 Antibiotics were stopped on the patient. Consulted with pulmonology, patient does not appear to have an infectious etiology and more than likely just a COPD exacerbation. She was transitioned from IV to PO steroids. Lasix transitioned from PO to IV.
[2018-03-03] MEDS: Insulin LISPRO 300 UNITS/3 ML VIAL SQ SCH (16:41)
[2018-03-03] MEDS: Furosemide 40 MG/4 ML VIAL IVP SCH (17:36)
[2018-03-04] MEDS: Piperacillin/Tazobactam 3.375 GM in 0.9 % Sodium Chloride Mini Bag 100 ML IVPB SCH ×4 (00:12→23:25)
[2018-03-04] MEDS: diazePAM 10 MG TABLET PO PRN ×3 (00:18→17:34)
[2018-03-04] MEDS: Ipratropium/Albuterol Neb 3 ML IH SCH ×6 (04:03→23:03)
[2018-03-04 05:30] LABS: Hematocrit 35.9 % (35.3-44.9); Hemoglobin 10.6 g/dL (11.5-15.4); Mean Corpuscular HGB Conc 29.5 g/dL (31.6-35.5); Mean Corpuscular Hemoglobin 24.5 pg (28.0-33.3); Mean Corpuscular Volume 83.1 fL (83.0-100.0); Mean Platelet Volume 9.1 fL (9.4-12.4); Platelet Count 303 K/mcL (140-400); Red Blood Count 4.32 M/mcL (3.82-4.97); Red Cell Distribution Width 16.8 % (11.5-14.5)
[2018-03-04] MEDS: *HR* Heparin 5,000 UNIT/ML VIAL SQ SCH ×3 (05:34→20:43)
[2018-03-04 05:52] LABS: BUN/Creatinine Ratio 21 (6-26); Blood Urea Nitrogen 21 mg/dL (6-20); Calcium 9.1 mg/dL (8.6-10.3); Carbon Dioxide 32 mEq/L (23-29); Chloride 95 mEq/L (98-107); Glucose 217 mg/dL (70-105); Osmolality,Calculated 294 (280-300); Potassium 3.7 mEq/L (3.5-5.1); Sodium 137 mEq/L (136-145); eGFR For Non-African Americans > 60 (> 60)
[2018-03-04] MEDS: Tiotropium 18 MCG inhalation IH SCH (07:47)
[2018-03-04] MEDS: Budesonide/Formoterol 160/4.5 1 PUFF INH IH SCH ×2 (07:47→19:53)
[2018-03-04] MEDS: Insulin LISPRO 300 UNITS/3 ML VIAL SQ SCH ×3 (08:10→17:23)
[2018-03-04] MEDS: Gabapentin 400 MG CAPSULE PO SCH ×4 (08:11→20:43)
[2018-03-04] MEDS: Baclofen 10 MG TABLET PO SCH ×3 (08:11→20:43)
[2018-03-04] MEDS: Potassium Citrate 10 MEQ TABLET.ER PO SCH (08:11)
[2018-03-04] MEDS: Furosemide 40 MG/4 ML VIAL IVP SCH ×3 (08:11→18:28)
[2018-03-04] MEDS: predniSONE 20 MG TABLET PO SCH (08:11)
--- NOTE | 2018-03-04 10:05 | Pulmonology Progress Note ---
Date of Encounter: 03/04/18 Time of Encounter: 10:05 Assessment and Plan (1) Acute on chronic respiratory failure with hypoxia and hypercapnia Current Visit: Yes Status: Acute Kim is a 37-year-old woman with complex respiratory conditions. She is well known to the pulmonary service for IV managed her care for the last couple of years. She has a smoking related lung disease (RB-ILD) complicated by underlying emphysema. This diagnosis was made by lung biopsy if she has severe cystic disease which was actually worse in the lower lobes initially was concerning to me for ILD of another cause such as (ZHANG). Unfortunately the upfront treatment for her conditions on both accounts Langley be smoking cessation if she is unable to stop smoking from my perspective she will not recover and will continue to have frequent exacerbations requiring hos pitalization Nas agreement that if further recommendations would be offered the patient the situation she should seek care at a tertiary referral center such as at [facility]. I am just not sure what they are going to offer her in addition to what we have provided if she continues to smoke . She will need continuation of schedule bronchodilators and steroids. I recommend a prolonged taper starting at 40 mg and to decrease by 10 mg weekly until pulmonary follow-up . She has leukocytosis today but unclear if she has active infection or not she is currently on Zosyn which is not unreasonable I suspect she would need to be de- escalated to Augmentin to complete a 7 to day course. Respiratory culture should be obtained if not already done and that she would benefit from a respiratory infection panel as well. Once oxygen saturation is back down to baseline about 5 L and she is feeling l nalini shingle home she can be discharged from pulmonary standpoint we will need follow-up in 1-2 weeks I did had extensive conversation with her that if she continues to smoke this would be considered a terminal disease. Pulmonary will sign off please call with any questions (2) COPD exacerbation Current Visit: Yes Status: Acute (3) Tobacco use Current Visit: Yes Status: Acute (4) Interstitial lung disease Current Visit: No Status: Chronic Subjective Principal diagnosis: COPD exacerbation Interval history: Kim states that she is feeling about this today. Still requiring 6 L nasal cannula O2 to keep saturation in the low to mid 90s. Her baseline to about 5 L. Objective PUL Vital signs: Last Vital Signs Temp 97.6 F 03/04/18 07:37 Pulse 78 03/04/18 07:37 Resp 18 03/04/18 07:47 BP 141/93 03/04/18 07:37 Pulse Ox 96 03/04/18 07:47 General appearance: no acute distress Eyes: nonicteric Neck: supple Auscultation: bilateral: diminished breath sounds, wheezes (Expiratory wheezes noted bilaterally) Cardiovascular: regular rate and rhythm Gastrointestinal: normoactive bowel sounds Integumentary: normal Extremities: no cyanosis, other (Clubbing of the digits on her hands bilaterally appreciated) Musculoskeletal: no deformities normal mental status, non-focal exam mood appropriate Results - Laboratory Findings CBC and BMP: 03/04/18 04:38 03/04/18 04:38 ABG ABG pH 7.34 pH Units (7.32-7.45) 03/02/18 12:27 ABG pCO2 67 mmHg (35-45) H 03/02/18 12:27 ABG pO2 65 mmHg (85-104) L 03/02/18 12:27 ABG O2 Saturation 90 % (95-98) L 03/02/18 12:27 Abnormal lab findings: Abnormal lab results WBC 13.4 K/mcL (4.3-11.1) H 03/04/18 04:38 Hgb 10.6 g/dL (11.5-15.4) L 03/04/18 04:38 MCH 24.5 pg (28.0-33.3) L 03/04/18 04:38 MCHC 29.5 g/dL (31.6-35.5) L 03/04/18 04:38 RDW 16.8 % (11.5-14.5) H 03/04/18 04:38 MPV 9.1 fL (9.4-12.4) L 03/04/18 04:38 ABG pCO2 67 mmHg (35-45) H 03/02/18 12:27 ABG pO2 65 mmHg (85-104) L 03/02/18 12:27 ABG HCO3 36 mEq/L (21-27) H 03/02/18 12:27 ABG Total CO2 38 mEq/L (20-26) H 03/02/18 12:27 ABG O2 Saturation 90 % (95-98) L 03/02/18 12:27 ABG Base Excess 8 mEq/L (-2 to 3) H 03/02/18 12:27 Chloride 95 mEq/L (98-107) L 03/04/18 04:38 Carbon Dioxide 32 mEq/L (23-29) H 03/04/18 04:38 BUN 21 mg/dL (6-20) H 03/04/18 04:38 Glucose 217 mg/dL (70-105) H 03/04/18 04:38 POC Glucose 236 mg/dL (70-99) H 03/03/18 20:31 Lactic Acid 0.4 mmol/L (0.5-2.2) L 03/02/18 04:15 Vancomycin Trough 15 mcg/mL (5-10) H 03/03/18 17:24 - Microbiology Findings Microbiology Findings: Microbiology, Last 48 Hours 03/02/18 04:06 Blood Culture - Preliminary Peripheral Venipuncture Culture is incubating and being continuously monitored for growth. Final report to follow. 03/02/18 04:15 Blood Culture - Preliminary Peripheral Venipuncture Culture is incubating and being continuously monitored for growth. Final report to follow. - Clinical Findings Intake & Output: Intake & Output 03/03/18 03/04/18 03/04/18 23:59 07:59 15:59 Intake Total 350 / 350 580 / 580 Output Total 1250 / 1250 2800 / 2800 Balance -900 / -900 -2220 / -2220 Weight 141.793 kg Consult Discharge Plan - Plan Referrals: Mervin Santiago MD [Primary Care Provider] - (Hospital follow up appointment has been requested. Office will call with date and time of appointment. )
--- NOTE | 2018-03-04 16:21 | Internal Med Progress Note ---
Hospitalist Progress Note - Encounter Date of Encounter: 03/04/18 Time of Encounter: 11:00 - Subjective Interval History: Patient was seen and examined at bedside-up on examination was noted patient was returning back to bed from bedside commode her sats were in the lower 80s and she was tachycardic as well as dyspneic. She continues to require 6 L of oxygen I did review treatment plan with the patient who verbalized understanding - Exam Vitals: Temp Pulse Resp BP Pulse Ox 98.0 F 99 22 120/96 94 03/04/18 11:46 03/04/18 11:46 03/04/18 11:46 03/04/18 11:46 03/04/18 11:46 Exam: General: Alert and oriented 3. Mild respiratory distress Cardiovascular: RRR, Normal S1 & S2, no rubs, murmurs or gallops. JVD about 6cm. Lungs: Diminished bilaterally with expiratory wheezes Abdomen: Obese, Soft, non-tender, no rigidity or guarding. NABS in all 4 quadrants.. Extremities: Some mild pedal edema-clubbing of digits bilaterally Neurological: Normal cognition. CN II-XII intact - Assessment and Plan (1) Interstitial lung disease Current Visit: No Status: Chronic Assessment and Plan: Patient being followed by pulmonology as an outpatient Due to presentation of acute on chronic hypoxic/hypercapnic respiratory failure as above, pulmonology has been consulted and appreciate recommendations 03/04/2018 Continue with oxygen support attempting to wean down to hold dose Pulmonary has been consult and appreciate recommendations patient will be followed up as outpatient with pulmonary as well as referred to [facility] as an outpatient (2) COPD (chronic obstructive pulmonary disease) Current Visit: No Status: Acute Assessment and Plan: Patient is a chronic smoker we will continue with bronchodilators and steroids pulmonology's recommending a prolonged taper starting at 40 mg and decreasing by 10 weekly until pulmonary follow-up continue with Zosyn for now and de-escalate to Augmentin to complete a seven-day course We will obtain respiratory infection panel as well as sputum culture Encourage patient to stop smoking Attempt to wean patient back to home oxygen level 5 L nasal cannula currently she is at 6 L (3) Status post thoracotomy Current Visit: No Status: Chronic Assessment and Plan: Patient status post right thoracotomy in 2015 Stable at this time (4) Acute respiratory failure Current Visit: Yes Status: Acute Assessment and Plan: Multifactoral secondary to smoking related lung disease complicated by emphysema as well as interstitial lung disease Continue with oxygen support attempting to wean patient to her home oxygen level Continue with outpatient follow-up with pulmonology and referral to [facility] (5) Tobacco use Current Visit: Yes Status: Acute Assessment and Plan: Patient reports smoking 5 packs a day but recently has cut down Nicotine replacement offered - Time Spent with Patient Total time spent is greater than 50% in coordination of care (as documented) at patient's floor/unit and/or counseling patient: Internal Medicine: Result - Labs CBC & Chem 7: 03/04/18 04:38 03/04/18 04:38 Labs: Short CBC 03/04/18 Range/Units 04:38 WBC 13.4 H (4.3-11.1) K/mcL Hgb 10.6 L (11.5-15.4) g/dL Hct 35.9 (35.3-44.9) % Plt Count 303 (140-400) K/mcL BMP 03/04/18 04:38 Sodium 137 Potassium 3.7 Chloride 95 L Carbon Dioxide 32 H BUN 21 H Creatinine 1.02 Glucose 217 H Calcium 9.1 - ABG Interpretation ABG results: ABG ABG pH 7.34 pH Units (7.32-7.45) 03/02/18 12:27 ABG pCO2 67 mmHg (35-45) H 03/02/18 12:27 ABG pO2 65 mmHg (85-104) L 03/02/18 12:27 ABG O2 Saturation 90 % (95-98) L 03/02/18 12:27 Consult Discharge Plan - Plan Referrals: Mervin Santiago MD [Primary Care Provider] - (Hospital follow up appointment has been requested. Office will call with date and time of appointment. ) _ (2) COPD (chronic obstructive pulmonary disease) Qualifiers: COPD type: COPD with acute exacerbation Qualified Code(s): J44.1 - Chronic obstructive pulmonary disease with (acute) exacerbation (4) Acute respiratory failure Qualifiers: Qualified Code(s): J96.00 - Acute respiratory failure, unspecified whether with hypoxia or hypercapnia
[2018-03-04 18:29] LABS: Bilirubin,Urine Negative (Negative); Blood,Urine Negative (Negative); Clarity,Urine Clear (Clear); Color,Urine Yellow (Yellow); Glucose,Urine (UA) Normal (Normal); Ketones,Urine Negative (Negative); Leukocyte Esterase,Urine Negative (Negative); Nitrite,Urine Negative (Negative); PH,Urine 6.5 pH Units (5.0-8.0); Protein,Urine Negative (Neg-Trace); Specific Gravity,Urine < 1.005 (1.010-1.025); Urobilinogen,Urine Normal (Normal)
[2018-03-04 18:58] LABS: Adenovirus Not Detected (Not Detect); Bordetella Pertussis Not Detected (Not Detect); Chlamydophila pneumoniae Not Detected (Not Detect); Coronavirus 229E Not Detected (Not Detect); Coronavirus HKU1 Not Detected (Not Detect); Coronavirus NL63 Not Detected (Not Detect); Coronavirus OC43 Not Detected (Not Detect); Human Metapneumovirus Not Detected (Not Detect); Human Rhinovirus/Enterovirus Not Detected (Not Detect); Influenza A Subtype 2009 H1 Not Detected (Not Detect); Influenza A Untypeable Not Detected (Not Detect); Influenza B Not Detected (Not Detect); Mycoplasma pneumoniae Not Detected (Not Detect); Parainfluenza Virus 1 Not Detected (Not Detect); Parainfluenza Virus 2 Not Detected (Not Detect); Parainfluenza Virus 3 Not Detected (Not Detect); Parainfluenza Virus 4 Not Detected (Not Detect); Respiratory Syncytial Virus Not Detected (Not Detect)
[2018-03-04] MEDS: Fluconazole 100 MG TABLET PO SCH (21:53)
[2018-03-05] MEDS: diazePAM 10 MG TABLET PO PRN ×3 (03:09→20:03)
[2018-03-05] MEDS: Ipratropium/Albuterol Neb 3 ML IH SCH ×5 (04:12→20:19)
[2018-03-05] MEDS: *HR* Heparin 5,000 UNIT/ML VIAL SQ SCH ×3 (05:22→22:03)
[2018-03-05 05:44] LABS: Basophils % 0.1 %; Eosinophils % 0.1 %; Hematocrit 37.4 % (35.3-44.9); Immature Granulocytes % 0.5 % (0-4); Lymphocytes # 4.4 K/mcL (0.6-4.6); Lymphocytes % 33.1 %; Mean Corpuscular HGB Conc 29.4 g/dL (31.6-35.5); Mean Corpuscular Hemoglobin 24.7 pg (28.0-33.3); Mean Corpuscular Volume 83.9 fL (83.0-100.0); Mean Platelet Volume 8.9 fL (9.4-12.4); Monocytes # 0.9 K/mcL (0.0-1.3); Monocytes % 6.7 %; Neutrophils # 7.9 K/mcL (1.6-8.9); Platelet Count 318 K/mcL (140-400); Red Blood Count 4.46 M/mcL (3.82-4.97); Segmented Neutrophils % 59.5 %
[2018-03-05 05:54] LABS: BUN/Creatinine Ratio 23 (6-26); Blood Urea Nitrogen 22 mg/dL (6-20); Calcium 9.1 mg/dL (8.6-10.3); Carbon Dioxide 33 mEq/L (23-29); Chloride 99 mEq/L (98-107); Glucose 104 mg/dL (70-105); Osmolality,Calculated 292 (280-300); Potassium 3.9 mEq/L (3.5-5.1); Sodium 139 mEq/L (136-145); eGFR For Non-African Americans > 60 (> 60)
[2018-03-05] MEDS: Budesonide/Formoterol 160/4.5 1 PUFF INH IH SCH ×2 (07:51→20:19)
[2018-03-05] MEDS: Tiotropium 18 MCG inhalation IH SCH (07:54)
[2018-03-05] MEDS: Insulin LISPRO 300 UNITS/3 ML VIAL SQ SCH ×3 (07:59→17:41)
[2018-03-05] MEDS: Furosemide 40 MG/4 ML VIAL IVP SCH (07:59)
[2018-03-05] MEDS: predniSONE 20 MG TABLET PO SCH (08:00)
[2018-03-05] MEDS: Piperacillin/Tazobactam 3.375 GM in 0.9 % Sodium Chloride Mini Bag 100 ML IVPB SCH ×2 (08:00→17:40)
[2018-03-05] MEDS: Fluconazole 100 MG TABLET PO SCH (08:00)
[2018-03-05] MEDS: Gabapentin 400 MG CAPSULE PO SCH ×4 (08:00→20:00)
[2018-03-05] MEDS: Potassium Citrate 10 MEQ TABLET.ER PO SCH (08:00)
[2018-03-05] MEDS: Baclofen 10 MG TABLET PO SCH ×3 (08:01→20:00)
--- NOTE | 2018-03-05 10:29 | Internal Med Progress Note ---
Hospitalist Progress Note - Encounter Date of Encounter: 03/05/18 Time of Encounter: 10:29 - Subjective Interval History: Patient was seen and examined at bedside-patient looks much better then yesterday. She states she feels much better we will decrease patient's oxygen down to home level of 5 L we will continue to monitor closely. Also due to inclement weather currently under a level to snow emergency impatience high risk of readmission we will monitor patient overnight and possibly discharge in the a.m. Did review this with the patient who verbalized understanding - Exam Vitals: Temp Pulse Resp BP Pulse Ox 97.9 F 83 18 122/85 94 03/05/18 07:27 03/05/18 07:27 03/05/18 07:51 03/05/18 07:27 03/05/18 07:51 Exam: General: Obese female does appear to be in any distress at this time Cardiovascular: RRR, Normal S1 & S2, no rubs, murmurs or gallops. JVD about 6cm. Lungs: Diminished bilaterally with faint expiratory wheezes Abdomen: Obese, Soft, non-tender, no rigidity or guarding. NABS in all 4 quadrants.. Extremities: Some mild pedal edema-clubbing of digits bilaterally Neurological: Normal cognition. CN II-XII intact -appropriate effect - Assessment and Plan (1) Interstitial lung disease Current Visit: No Status: Chronic Assessment and Plan: Patient being followed by pulmonology as an outpatient Due to presentation of acute on chronic hypoxic/hypercapnic respiratory failure as above, pulmonology has been consulted and appreciate recommendations 03/04/2018 Continue with oxygen support attempting to wean down to hold dose Pulmonary has been consult and appreciate recommendations patient will be followed up as outpatient with pulmonary as well as referred to [facility] as an outpatient 03/05/[address] patient on home oxygen level 5 L nasal cannula and monitor closely throughout the day Patient will be followed up as an outpatient with pulmonary as well as referred to [facility] as outpatient (2) COPD (chronic obstructive pulmonary disease) Current Visit: No Status: Acute Assessment and Plan: Patient is a chronic smoker we will continue with bronchodilators and steroids pulmonology's recommending a prolonged taper starting at 40 mg and decreasing by 10 weekly until pulmonary follow-up continue with Zosyn for now and de-escalate to Augmentin to complete a seven-day course We will obtain respiratory infection panel as well as sputum culture Encourage patient to stop smoking Attempt to wean patient back to home oxygen level 5 L nasal cannula currently she is at 6 L (3) Status post thoracotomy Current Visit: No Status: Chronic Assessment and Plan: Patient status post right thoracotomy in 2015 Stable at this time 03/05/2018 As above (4) Acute respiratory failure Current Visit: Yes Status: Acute Assessment and Plan: Multifactoral secondary to smoking related lung disease complicated by emphysema as well as interstitial lung disease Continue with oxygen support attempting to wean patient to her home oxygen level Continue with outpatient follow-up with pulmonology and referral to [facility] 03/05/2018 Multifactoral secondary to smoking related lung disease as well as emphysema and interstitial lung disease I will place on home oxygen level 5 L nasal cannula and monitor today patient appears to be much improved We will monitor overnight due to patient high risk for readmission and an inclement weather we will monitor overnight (5) Tobacco use Current Visit: Yes Status: Acute Assessment and Plan: Patient reports smoking 5 packs a day but recently has cut down Nicotine replacement offered 03/05/2018 I did have a long discussion with the patient concerning smoking cessation today we did discuss plan and cessation of smoking options - Time Spent with Patient Total time spent is greater than 50% in coordination of care (as documented) at patient's floor/unit and/or counseling patient: Internal Medicine: Result - Labs CBC & Chem 7: 03/05/18 05:04 03/05/18 05:04 Labs: Short CBC 03/05/18 Range/Units 05:04 WBC 13.3 H (4.3-11.1) K/mcL Hgb 11.0 L (11.5-15.4) g/dL Hct 37.4 (35.3-44.9) % Plt Count 318 (140-400) K/mcL Neutrophils # 7.9 (1.6-8.9) K/mcL BMP 03/05/18 05:04 Sodium 139 Potassium 3.9 Chloride 99 Carbon Dioxide 33 H BUN 22 H Creatinine 0.97 Glucose 104 Calcium 9.1 Urine 03/04/18 Range/Units 18:00 Urine Color Yellow (Yellow) Urine Clarity Clear (Clear) Urine pH 6.5 (5.0-8.0) pH Units Ur Specific [place] < 1.005 L (1.010-1.025) Urine Protein Negative (Neg-Trace) mg/dL Urine Glucose (UA) Normal (Normal) mg/dL - ABG Interpretation ABG results: ABG ABG pH 7.34 pH Units (7.32-7.45) 03/02/18 12:27 ABG pCO2 67 mmHg (35-45) H 03/02/18 12:27 ABG pO2 65 mmHg (85-104) L 03/02/18 12:27 ABG O2 Saturation 90 % (95-98) L 03/02/18 12:27 Consult Discharge Plan - Plan Referrals: Mervin Santiago MD [Primary Care Provider] - (Hospital follow up appointment has been requested. Office will call with date and time of appointment. ) (2) COPD (chronic obstructive pulmonary disease) Qualifiers: COPD type: COPD with acute exacerbation Qualified Code(s): J44.1 - Chronic obstructive pulmonary disease with (acute) exacerbation (4) Acute respiratory failure Qualifiers: Qualified Code(s): J96.00 - Acute respiratory failure, unspecified whether with hypoxia or hypercapnia
[2018-03-06] MEDS: Piperacillin/Tazobactam 3.375 GM in 0.9 % Sodium Chloride Mini Bag 100 ML IVPB SCH ×2 (00:04→07:47)
[2018-03-06] MEDS: Ipratropium/Albuterol Neb 3 ML IH SCH ×4 (00:41→11:13)
[2018-03-06] MEDS: *HR* Heparin 5,000 UNIT/ML VIAL SQ SCH (05:15)
[2018-03-06] MEDS: diazePAM 10 MG TABLET PO PRN (05:15)
[2018-03-06 05:38] LABS: Basophils % 0.1 %; Eosinophils % 0.2 %; Hematocrit 38.1 % (35.3-44.9); Hemoglobin 11.2 g/dL (11.5-15.4); Immature Granulocytes % 0.4 % (0-4); Lymphocytes # 4.7 K/mcL (0.6-4.6); Lymphocytes % 32.2 %; Mean Corpuscular HGB Conc 29.4 g/dL (31.6-35.5); Mean Corpuscular Hemoglobin 24.7 pg (28.0-33.3); Mean Corpuscular Volume 83.9 fL (83.0-100.0); Mean Platelet Volume 8.8 fL (9.4-12.4); Monocytes # 0.9 K/mcL (0.0-1.3); Monocytes % 6.1 %; Neutrophils # 8.9 K/mcL (1.6-8.9); Platelet Count 320 K/mcL (140-400); Red Blood Count 4.54 M/mcL (3.82-4.97); Red Cell Distribution Width 16.9 % (11.5-14.5)
[2018-03-06 05:55] LABS: BUN/Creatinine Ratio 21 (6-26); Blood Urea Nitrogen 21 mg/dL (6-20); Calcium 9.2 mg/dL (8.6-10.3); Carbon Dioxide 31 mEq/L (23-29); Chloride 100 mEq/L (98-107); Glucose 113 mg/dL (70-105); Osmolality,Calculated 288 (280-300); Potassium 4.2 mEq/L (3.5-5.1); Sodium 137 mEq/L (136-145); eGFR For Non-African Americans > 60 (> 60)
[2018-03-06] MEDS: Tiotropium 18 MCG inhalation IH SCH (07:40)
[2018-03-06] MEDS: Gabapentin 400 MG CAPSULE PO SCH (07:47)
[2018-03-06] MEDS: Potassium Citrate 10 MEQ TABLET.ER PO SCH (07:48)
[2018-03-06] MEDS: Fluconazole 100 MG TABLET PO SCH (07:48)
[2018-03-06] MEDS: Baclofen 10 MG TABLET PO SCH (07:48)
[2018-03-06] MEDS: predniSONE 20 MG TABLET PO SCH (07:48)
[2018-03-06] MEDS: Insulin LISPRO 300 UNITS/3 ML VIAL SQ SCH (07:49)
[2018-03-06] MEDS: Budesonide/Formoterol 160/4.5 1 PUFF INH IH SCH (07:59)
--- NOTE | 2018-03-06 08:47 | Discharge Summary ---
- NOTES TO OUTPATIENT PROVIDER Notes to Outpatient Provider: COPD excerbation- Long steroid taper- Augmentin- mental health follow up,pulmonology- [facility] follow up - discussed possible hyponotic therapy for smoking cessation Orders not resulted at time of discharge: Pending orders 03/02/18 04:06 Culture,Blood [BC] Stat 03/04/18 17:41 Sputum Culture [Culture,Sputum with Gram Stain] [] Routine Date of Encounter: 03/06/18 Time of Encounter: 09:14 - Discharge Diagnosis (1) Interstitial lung disease Priority: Secondary Status: Chronic (2) COPD (chronic obstructive pulmonary disease) Priority: Primary Status: Acute Qualifiers: COPD type: COPD with acute exacerbation Qualified Code(s): J44.1 - Chronic obstructive pulmonary disease with (acute) exacerbation (3) Status post thoracotomy Priority: Secondary Status: Chronic (4) Acute respiratory failure Priority: Primary Status: Acute Qualifiers: Qualified Code(s): J96.00 - Acute respiratory failure, unspecified whether with hypoxia or hypercapnia (5) Tobacco use Priority: Secondary Status: Acute Hospital course: Ms. Monet is a 37 year old female 's medical history of COPD fibromyalgia GERD renal disease anxiety bipolar depression interstitial lung disease thoracotomy. Presented to [facility] ED with worsening shortness of breath-normally on 4 L-5 L oxygen for COPD-oxygen saturations have been dropping into the 70s at home she was recently discharged from the hospital with pneumonia and was sent home on Z- Akira and steroid for 5 days. She is seeing no improvement. Extensive smoking history currently smokes half a pack a day. She was hypoxic in the ER chest x- ray showed increased density airspace opacification right lower lobe concerning for atelectasis versus linitis associated pleural effusion she had a elevation in white count she was given IV Vanco IV Zosyn and Solu-Medrol. She was evaluated by pulmonology vancomycin was DC'd to . Zosyn was continued as well as steroids. He required 7-8 L of oxygen support pulmonology recommended follow-up as outpatient with [facility]. Steroids were switched to oral and she will require a long steroid taper until she is seen by pulmonology-patient does admit she was a 5 pack a day smoker 5 years ago and has decreased her smoking to half a pack daily she was counseled on the importance of smoking cessation she was offered prescription of Chantix which she declined. Encouraged her to seek advice from her PCP about choices also recommended possible hypnosis and was provided resources. Her oxygen was weaned down to 5 L which she states she uses at home sensitive been stable. She was given a prescription for prednisone as well as Augmentin for the next 4 days to complete a seven-day course. Advised patient follow up with primary care provider as well as pulmonary and [facility]. She verbalized understanding currently she does not appear to be in any distress and she is hemodynamically stable. Ready for discharge. - Time Spent with Patient Total time spent providing and/or coordinating discharge services: - Discharge Medications Prescriptions: Amoxicillin/Clavulanate [Augmentin] 875 mg PO BIDWM 3 Days tablet predniSONE [PredniSONE] 10 mg PO DAILY #66 tablet Home Medications: ARIPiprazole [Abilify] 30 mg PO DAILY 10/01/14 [History] DULoxetine [Cymbalta] 60 mg PO BID 10/01/14 [History] Ipratropium/Albuterol Neb [Duoneb] 3 ml IH Q6HR PRN 02/03/16 [History] Oxygen 4 l NS CONT 02/03/16 [History] Tiotropium [place] [Spiriva Respimat] 2 puff IH DAILY 02/03/16 [History] Baclofen [Lioresal] 10 mg PO TID 04/19/16 [History] Budesonide/Formoterol 160/4.5 [Symbicort 160/4.5] 2 puff IH BIDR 07/28/17 [History] SUMAtriptan Succinate [Imitrex] 100 mg PO DAILY PRN 07/28/17 [History] Esomeprazole Magnesium [Nexium] 40 mg PO DAILY PRN 10/10/17 [History] Gabapentin [Neurontin] 800 mg PO QID 10/10/17 [History] Furosemide [Lasix] 40 mg PO BID 02/02/18 [History] Potassium Citrate [Urocit-K] 10 meq PO DAILY 02/02/18 [History] diazePAM [Valium] 10 mg PO Q8H PRN 02/02/18 [History] Albuterol Sulfate [Ventolin Hfa] 1 - 2 puff IH Q4H PRN 02/04/18 [History] Naproxen 500 mg PO BID PRN 03/02/18 [History] Amoxicillin/Clavulanate [Augmentin] 875 mg PO BIDWM 3 Days tablet 03/06/18 [Rx] predniSONE [PredniSONE] 10 mg PO DAILY #66 tablet 03/06/18 [Rx] Allergies/Adverse Reactions: Allergy/AdvReac Type Severity Reaction Status Date / Time ketorolac [From Toradol] Allergy Intermediate Weakness Verified 03/02/18 03:05 Pneumococcal Vaccine Allergy Intermediate Rash Verified 03/02/18 03:05 [From Prevnar] tramadol Allergy Intermediate Weakness Verified 03/02/18 03:05 Cefaclor Allergy Rash Verified 03/02/18 03:05 Asenapine [From Saphris] AdvReac See Verified 03/02/18 03:05 Comments lamotrigine [From Lamictal] AdvReac Migraine Verified 03/02/18 03:05 lurasidone [From Latuda] AdvReac See Verified 03/02/18 03:05 Comments Date of admission: 03/03/18 12:58 Primary care physician: Mervin Santiago MD Consults: 03/02/18 09:31 Consult to Nurse Navigator [CONS] Routine Comment: COPD Consult to Pulmonology [CONS] Routine Consulting Provider: [facility] [place] Reason for Consult: hypoxia, pleural effusion, Thoracotomy in past Call Completed: No Discharging clinician: Caterina Friedman Anticipated date of discharge: 03/06/18 - Constitutional Vitals: Temp Pulse Resp BP Pulse Ox 98.0 F 92 14 116/81 95 03/06/18 07:10 03/06/18 07:10 03/06/18 08:01 03/06/18 07:10 03/06/18 08:01 General appearance: Present: A&O X 3, no acute distress, obese, answers questions appropriately Exam: General: Obese female does appear to be in any distress at this time Cardiovascular: RRR, Normal S1 & S2, no rubs, murmurs or gallops. JVD about 6cm. Lungs: Diminished bilaterally lung sounds are clear Abdomen: Obese, Soft, non-tender, no rigidity or guarding. NABS in all 4 quadrants.. Extremities: Some mild pedal edema-clubbing of digits bilaterally Neurological: Normal cognition. CN II-XII intact -appropriate effect - Patient Status Disposition: Home Health Service Condition: Fair Functional capacity at discharge: independent ambulation Overall status at discharge: patient is back to baseline - Discharge Instructions Instructions: Prednisone (By mouth), Amoxicillin/Clavulanate Potassium (By mouth), Acute Respiratory Distress Syndrome (DC) Follow Up With: Mervin Santiago MD [Primary Care Provider] - (Hospital follow up appointment has been requested. Office will call with date and time of appointment. ) Naun Perez MD [Partnered Physician] - 03/07/18 1:15 pm Additional Instructions: Smoking cessation/Hypnotherapy: [email or web address] - Diet and Activity Activity: increase activity as tolerated Diet: advance to your usual diet
[2018-03-06] MEDS ORDERED: ARIPiprazole 10 MG TABLET PO SCH (09:00)
[2018-03-06 11:09] VITALS: BP 154/94
--- NOTE | 2018-03-06 11:15 | Physician Discharge Referral ---
Home Health/Hosp Referral Info Transfer to: Home Health Attending Provider: Kavon Friedman Provider in Charge Post Discharge: PCP - Diagnosis (1) Interstitial lung disease Priority: Secondary Status: Chronic (2) COPD (chronic obstructive pulmonary disease) Priority: Secondary Status: Acute (3) Status post thoracotomy Priority: Secondary Status: Chronic (4) Acute respiratory failure Priority: Primary Status: Acute (5) Tobacco use Priority: Secondary Status: Acute - Respiratory Orders Oxygen / L per min Smoking Cessation: Smoking cessation has been advised. For more information, call the [place] Tobacco Quit Line at 5-172-LATX-NOW. - Diet/Nutrition Diet/Nutrition Orders: Regular - Activity Activity Orders: Up ad eric - Services Needed Following services are medically necessary services: Nursing - Transfer Medications Prescriptions: Amoxicillin/Clavulanate [Augmentin] 875 mg PO BIDWM 3 Days tablet predniSONE [PredniSONE] 10 mg PO DAILY #66 tablet Home Medications: ARIPiprazole [Abilify] 30 mg PO DAILY 10/01/14 [History] DULoxetine [Cymbalta] 60 mg PO BID 10/01/14 [History] Ipratropium/Albuterol Neb [Duoneb] 3 ml IH Q6HR PRN 02/03/16 [History] Oxygen 4 l NS CONT 02/03/16 [History] Tiotropium [place] [Spiriva Respimat] 2 puff IH DAILY 02/03/16 [History] Baclofen [Lioresal] 10 mg PO TID 04/19/16 [History] Budesonide/Formoterol 160/4.5 [Symbicort 160/4.5] 2 puff IH BIDR 07/28/17 [History] SUMAtriptan Succinate [Imitrex] 100 mg PO DAILY PRN 07/28/17 [History] Esomeprazole Magnesium [Nexium] 40 mg PO DAILY PRN 10/10/17 [History] Gabapentin [Neurontin] 800 mg PO QID 10/10/17 [History] Furosemide [Lasix] 40 mg PO BID 02/02/18 [History] Potassium Citrate [Urocit-K] 10 meq PO DAILY 02/02/18 [History] diazePAM [Valium] 10 mg PO Q8H PRN 02/02/18 [History] Albuterol Sulfate [Ventolin Hfa] 1 - 2 puff IH Q4H PRN 02/04/18 [History] Naproxen 500 mg PO BID PRN 03/02/18 [History] Amoxicillin/Clavulanate [Augmentin] 875 mg PO BIDWM 3 Days tablet 03/06/18 [Rx] predniSONE [PredniSONE] 10 mg PO DAILY #66 tablet 03/06/18 [Rx] Allergies/Adverse Reactions: Allergy/AdvReac Type Severity Reaction Status Date / Time ketorolac [From Toradol] Allergy Intermediate Weakness Verified 03/02/18 03:05 Pneumococcal Vaccine Allergy Intermediate Rash Verified 03/02/18 03:05 [From Prevnar] tramadol Allergy Intermediate Weakness Verified 03/02/18 03:05 Cefaclor Allergy Rash Verified 03/02/18 03:05 Asenapine [From Saphris] AdvReac See Verified 03/02/18 03:05 Comments lamotrigine [From Lamictal] AdvReac Migraine Verified 03/02/18 03:05 lurasidone [From Latuda] AdvReac See Verified 03/02/18 03:05 Comments Certification: Further, I certify that my clinical findings support that this patient is homebound (i.e. absences from home require considerable and taxing effort and are for medical reasons or sabianist services or infrequently or short duration when for other reasons) because: Homebound Reason: Severity of cardiac or pulmonary status limits activity tolerance Attestation: My signature below is to certify that this patient is under my care and that I, or nurse practitioner, or a physician's radiology practitioner assistant working with me, has a [id number] encounter with this patient.
== END 2018-03-06 12:52 | disposition home health service (06) | DRG 190 ==
LOC: EMEROOARM 02:53 → 3BNU 02:53 → SUATTDRO 06:37 → 3BNU 06:45
PROVIDERS: ADMIT Internal Medicine; ATTEND Family Medicine

== ENCOUNTER 2018-07-01 16:00 | Inpatient (IN) ==
[2018-07-01] MEDS ORDERED: Ipratropium/Albuterol Neb 3 ML IH ONE (16:08)
[2018-07-01] MEDS ORDERED: methylPREDNISolone 125 MG/2 ML VIAL IVP ONE (16:08)
--- NOTE | 2018-07-01 16:11 | Emergency Department Note ---
Disposition Clinical Impression: Community acquired pneumonia, Hypoxia Disposition: Admitted As Inpatient Condition: Fair Referrals: Mervin Santiago MD [Primary Care Provider] - Forms: ED Satisfaction Letter General Adult HPI - General Stated complaint: JANINE Time Seen by Provider: 07/01/18 16:07 - Related Data Home Medications Medication Instructions Recorded Confirmed DULoxetine [Cymbalta] 60 mg PO BID 10/01/14 04/23/18 Ipratropium/Albuterol Neb [Duoneb] 3 ml IH Q6HR PRN 02/03/16 04/23/18 Tiotropium [place] [Spiriva 2 puff IH DAILY 02/03/16 04/23/18 Respimat] Baclofen [Lioresal] 10 mg PO TID PRN 04/19/16 04/23/18 Budesonide/Formoterol 160/4.5 2 puff IH BIDR 07/28/17 04/23/18 [Symbicort 160/4.5] SUMAtriptan Succinate [Imitrex] 100 mg PO DAILY PRN 07/28/17 04/23/18 Esomeprazole Magnesium [Nexium] 40 mg PO DAILY PRN 10/10/17 04/23/18 Gabapentin [Neurontin] 800 mg PO QID 10/10/17 04/23/18 Furosemide [Lasix] 40 mg PO BID 02/02/18 04/23/18 Potassium Citrate [Urocit-K] 10 meq PO DAILY 02/02/18 04/23/18 diazePAM [Valium] 10 mg PO Q8H PRN 02/02/18 04/23/18 Albuterol Sulfate [Ventolin Hfa] 1 - 2 puff IH Q4H PRN 02/04/18 04/23/18 Naproxen 500 mg PO BID 03/02/18 04/23/18 Aripiprazole [Abilify] 30 mg PO DAILY 04/23/18 04/23/18 Previous Rx's Medication Instructions Recorded predniSONE [PredniSONE] 20 mg PO TAPER #65 tablet 05/02/18 levoFLOXacin [Levaquin] 750 mg PO DAILY #9 tablet 05/24/18 Allergies Allergy/AdvReac Type Severity Reaction Status Date / Time ketorolac [From Toradol] Allergy Intermediate Weakness Verified 03/02/18 03:05 Pneumococcal Vaccine Allergy Intermediate Rash Verified 03/02/18 03:05 [From Prevnar] tramadol Allergy Intermediate Weakness Verified 03/02/18 03:05 Cefaclor Allergy Rash Verified 03/02/18 03:05 Asenapine [From Saphris] AdvReac See Verified 03/02/18 03:05 Comments lamotrigine [From Lamictal] AdvReac Migraine Verified 03/02/18 03:05 lurasidone [From Latuda] AdvReac See Verified 03/02/18 03:05 Comments Past Medical History - Past Medical History Medical history: Reports: arthritis, asthma, COPD, fibromyalgia, GERD, migraine, osteoporosis, renal disease, other Surgical history: Reports: other Psychiatric history: Reports: anxiety, bipolar, depression 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 syndrome, bilateral tubal ligation - Social History Smoking Status: Current every day smoker Smokeless Tobacco Status: No Alcohol use: Reports: rarely Drug use: Reports: marijuana Course Vital Signs Temperature 99.3 F 07/01/18 16:04 Pulse Rate 127 07/01/18 16:04 Respiratory Rate 20 07/01/18 16:04 Blood Pressure 139/92 07/01/18 16:04 O2 Sat by Pulse Oximetry 96 07/01/18 16:04 Temperature 99.3 F 07/01/18 16:04 Pulse Rate 121 07/01/18 18:00 Respiratory Rate 20 07/01/18 18:00 Blood Pressure 135/79 07/01/18 18:00 O2 Sat by Pulse Oximetry 92 07/01/18 18:00 Oxygen Delivery Oxygen Delivery High Flow Nasal Cannula Medical Decision Making - Lab Data Result diagrams: 07/01/18 16:23 07/01/18 16:23 Lab Results 07/01/18 07/01/18 07/01/18 Range/Units 16:23 16:23 16:23 WBC 15.6 H (4.3-11.1) K/mcL RBC 4.11 (3.82-4.97) M/mcL Hgb 9.0 L (11.5-15.4) g/dL Hct 33.6 L (35.3-44.9) % MCV 81.8 L (83.0-100.0) fL MCH 21.9 L (28.0-33.3) pg MCHC 26.8 L (31.6-35.5) g/dL RDW 19.8 H (11.5-14.5) % Plt Count 265 (140-400) K/mcL MPV 9.1 L (9.4-12.4) fL Immature Gran % 0.6 (0-4) % Seg Neutrophils % 81.6 % Lymphocytes % 9.9 % Monocytes % 7.1 % Eosinophils % 0.5 % Basophils % 0.3 % Neutrophils # 12.7 H (1.6-8.9) K/mcL Lymphocytes # 1.5 (0.6-4.6) K/mcL Monocytes # 1.1 (0.0-1.3) K/mcL Eosinophils # 0.1 (0.0-0.6) K/mcL Basophils # 0.1 (0.0-0.2) K/mcL Nucleated RBCs/100 WBC 0.2 H (0) /100 WBC Clumped Platelets Few A (Not Present) Large Platelets Present A (Not Present) Hypochromasia Present A (Not Present) Anisocytosis 2+ A (Not Present) Microcytosis Present A (Not Present) D-Dimer 484 (0-500) ng/mLFEU Sodium 136 (136-145) mEq/L Potassium 3.9 (3.5-5.1) mEq/L Chloride 96 L (98-107) mEq/L Carbon Dioxide 36 H (23-29) mEq/L BUN 5 L (6-20) mg/dL Creatinine 0.68 (0.60-1.20) mg/dL Est GFR ( Amer) > 60 (> 60) Est GFR (Non-Af Amer) > 60 (> 60) BUN/Creatinine Ratio 7 (6-26) Glucose 100 (70-105) mg/dL Calculated Osmolality 279 L (280-300) Calcium 8.8 (8.6-10.3) mg/dL Troponin I < 0.03 (< 0.04) ng/mL B-Natriuretic Peptide (Less than 100) pg/mL 07/01/18 Range/Units 16:23 WBC (4.3-11.1) K/mcL RBC (3.82-4.97) M/mcL Hgb (11.5-15.4) g/dL Hct (35.3-44.9) % MCV (83.0-100.0) fL MCH (28.0-33.3) pg MCHC (31.6-35.5) g/dL RDW (11.5-14.5) % Plt Count (140-400) K/mcL MPV (9.4-12.4) fL Immature Gran % (0-4) % Seg Neutrophils % % Lymphocytes % % Monocytes % % Eosinophils % % Basophils % % Neutrophils # (1.6-8.9) K/mcL Lymphocytes # (0.6-4.6) K/mcL Monocytes # (0.0-1.3) K/mcL Eosinophils # (0.0-0.6) K/mcL Basophils # (0.0-0.2) K/mcL Nucleated RBCs/100 WBC (0) /100 WBC Clumped Platelets (Not Present) Large Platelets (Not Present) Hypochromasia (Not Present) Anisocytosis (Not Present) Microcytosis (Not Present) D-Dimer (0-500) ng/mLFEU Sodium (136-145) mEq/L Potassium (3.5-5.1) mEq/L Chloride (98-107) mEq/L Carbon Dioxide (23-29) mEq/L BUN (6-20) mg/dL Creatinine (0.60-1.20) mg/dL Est GFR ( Amer) (> 60) Est GFR (Non-Af Amer) (> 60) BUN/Creatinine Ratio (6-26) Glucose (70-105) mg/dL Calculated Osmolality (280-300) Calcium (8.6-10.3) mg/dL Troponin I (< 0.04) ng/mL B-Natriuretic Peptide 33 (Less than 100) pg/mL Critical Care Time Critical Care Time: Yes Total Critical Care Time: 35 Attestation: Critical care performed: Time is exclusive of separately billable procedures. Time includes: direct patient care, patient reassessment, coordination of patient care, interpretation of data (laboratory data, radiology data, and respiratory data), review of [facility] records, medical consultation and documentation of patient care. Procedures included in critical care time: Procedures excluded from critical care time: Attestation Statement - Attestation Attestation: I examined this patient and my medical decision-making was reviewed with the Resident Physician. I agree with the documented findings, disposition and treatment plan as described except to the extent set forth below. Patient presents to the ED with shortness of breath. Patient recently had humidifiers ordered for her oxygen concentrator's. She states she did not know that they stop working when it runs out. Patient states she was short of breath. She was found hypoxic in the 50s by EMS. He quickly improved to the 90s with a nonrebreather. Patient states she feels better. No fever. No cough. She has a long-standing history of COPD secondary to smoking. Patient still smokes. On exam she is in no distress. Her lungs are diminished. Plan. Basic labs with d-dimer. Nebs and steroids. Chest x-ray reevaluate. Chest x-ray reviewed. Patient is started on IV antibiotics. Admitting to medicine. Chest X-Ray 07/01/18 16:08 IMPRESSION: Low lung volumes. Increased bilateral perihilar opacification, infiltrate or edema. D/ / Sage Rodrigez MD / Sage Rodrigez MD Interpreting Provider: Sage Rodrigez MD
[2018-07-01 16:52] LABS: Basophils % 0.3 %; Eosinophils % 0.5 %; Immature Granulocytes % 0.6 % (0-4)
[2018-07-01 16:54] LABS: Basophils # 0.1 K/mcL (0.0-0.2); Eosinophils # 0.1 K/mcL (0.0-0.6); Hematocrit 33.6 % (35.3-44.9); Lymphocytes # 1.5 K/mcL (0.6-4.6); Lymphocytes % 9.9 %; Mean Corpuscular HGB Conc 26.8 g/dL (31.6-35.5); Mean Corpuscular Hemoglobin 21.9 pg (28.0-33.3); Mean Corpuscular Volume 81.8 fL (83.0-100.0); Mean Platelet Volume 9.1 fL (9.4-12.4); Monocytes # 1.1 K/mcL (0.0-1.3); Monocytes % 7.1 %; Neutrophils # 12.7 K/mcL (1.6-8.9); Nucleated Red Blood Cells 0.2 /100 WBC (0); Platelet Count 265 K/mcL (140-400); Red Blood Count 4.11 M/mcL (3.82-4.97); Red Cell Distribution Width 19.8 % (11.5-14.5); Segmented Neutrophils % 81.6 %
[2018-07-01 17:10] LABS: Anisocytosis 2+ (Not Present); Hypochromasia Present (Not Present); Microcytosis Present (Not Present)
[2018-07-01 17:11] LABS: Large Platelets Present (Not Present); Platelet Clumps Few (Not Present)
[2018-07-01 17:27] LABS: BUN/Creatinine Ratio 7 (6-26); Blood Urea Nitrogen 5 mg/dL (6-20); Calcium 8.8 mg/dL (8.6-10.3); Carbon Dioxide 36 mEq/L (23-29); Chloride 96 mEq/L (98-107); Glucose 100 mg/dL (70-105); Osmolality,Calculated 279 (280-300); Potassium 3.9 mEq/L (3.5-5.1); Sodium 136 mEq/L (136-145); Troponin I < 0.03 ng/mL (< 0.04); eGFR For Non-African Americans > 60 (> 60)
[2018-07-01] MEDS ORDERED: Levofloxacin 750 MG/150 ML 750 MG/150 ML BAG IVPB ONE (18:51)
--- NOTE | 2018-07-01 18:56 | Emergency Department Note ---
Disposition Clinical Impression: Hypoxia Community acquired pneumonia Qualifiers: Laterality: unspecified laterality Qualified Code(s): J18.9 - Pneumonia, unspecified organism COPD (chronic obstructive pulmonary disease) Qualifiers: COPD type: COPD with acute exacerbation Qualified Code(s): J44.1 - Chronic obstructive pulmonary disease with (acute) exacerbation Disposition: Admitted As Inpatient Condition: Fair Referrals: Mervin Santiago MD [Primary Care Provider] - Forms: ED Satisfaction Letter Time of Disposition: 20:11 SOB HPI - General Chief Complaint: ED Shortness of Breath/Dyspnea Stated Complaint: JANINE Time Seen by Provider: 07/01/18 16:07 Source: family, EMS Mode of arrival: EMS Limitations: no limitations Nursing Notes Reviewed: Yes Vital Signs Reviewed: Yes - History of Present Illness 37-year-old female presented to the emergency department complaining of shortness of breath. She does have extensive COPD where she is on approximately 6-12 L of oxygen at home and does check her oxygen saturations regular. 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 Said that time she became very days and was very confused. Never did fall or lose consciousness. EMS arrived said they got saturations 60 placed on nonrebreather she went back up to the 90s. She has not had any fevers has been short of breath and has been coughing. She has been giving her nebulizer treatments. Patient otherwise has no other complaints at this time. She has not been any abdominal pain or any other symptoms. - Related Data Home Medications Medication Instructions Recorded Confirmed DULoxetine [Cymbalta] 60 mg PO BID 10/01/14 04/23/18 Ipratropium/Albuterol Neb [Duoneb] 3 ml IH Q6HR PRN 02/03/16 04/23/18 Tiotropium [place] [Spiriva 2 puff IH DAILY 02/03/16 04/23/18 Respimat] Baclofen [Lioresal] 10 mg PO TID PRN 04/19/16 04/23/18 Budesonide/Formoterol 160/4.5 2 puff IH BIDR 07/28/17 04/23/18 [Symbicort 160/4.5] SUMAtriptan Succinate [Imitrex] 100 mg PO DAILY PRN 07/28/17 04/23/18 Esomeprazole Magnesium [Nexium] 40 mg PO DAILY PRN 10/10/17 04/23/18 Gabapentin [Neurontin] 800 mg PO QID 10/10/17 04/23/18 Furosemide [Lasix] 40 mg PO BID 02/02/18 04/23/18 Potassium Citrate [Urocit-K] 10 meq PO DAILY 02/02/18 04/23/18 diazePAM [Valium] 10 mg PO Q8H PRN 02/02/18 04/23/18 Albuterol Sulfate [Ventolin Hfa] 1 - 2 puff IH Q4H PRN 02/04/18 04/23/18 Naproxen 500 mg PO BID 03/02/18 04/23/18 Aripiprazole [Abilify] 30 mg PO DAILY 04/23/18 04/23/18 Previous Rx's Medication Instructions Recorded predniSONE [PredniSONE] 20 mg PO TAPER #65 tablet 05/02/18 levoFLOXacin [Levaquin] 750 mg PO DAILY #9 tablet 05/24/18 Allergies Allergy/AdvReac Type Severity Reaction Status Date / Time ketorolac [From Toradol] Allergy Intermediate Weakness Verified 03/02/18 03:05 Pneumococcal Vaccine Allergy Intermediate Rash Verified 03/02/18 03:05 [From Prevnar] tramadol Allergy Intermediate Weakness Verified 03/02/18 03:05 Cefaclor Allergy Rash Verified 03/02/18 03:05 Asenapine [From Saphris] AdvReac See Verified 03/02/18 03:05 Comments lamotrigine [From Lamictal] AdvReac Migraine Verified 03/02/18 03:05 lurasidone [From Latuda] AdvReac See Verified 03/02/18 03:05 Comments All systems ED: reviewed and negative except as stated. Review of Systems: As Per HPI Past Medical History - Past Medical History Attestation: Yes The following information was validated with the patient. 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 - Social History Smoking Status: Current every day smoker Smokeless Tobacco Status: No Alcohol use: Reports: rarely Drug use: Reports: none Physical Exam - General Limitations: no limitations General appearance: alert, anxious - Head Head exam: atraumatic, normocephalic, normal inspection - Eye Eye exam: Present: normal appearance, PERRL, EOMI - ENT ENT exam: normal exam, normal oropharynx, mucous membranes moist - Neck Neck exam: Present: normal inspection, full ROM, trachea midline - Chest Chest inspection: Present: normal inspection, symmetric chest wall rise - Respiratory Respiratory exam: Present: wheezes, accessory muscle use. Absent: respiratory distress, stridor, prolonged expiratory phase - Cardiovascular Cardiovascular exam: Present: regular rate, normal rhythm, normal heart sounds - Abdominal Exam Abdominal exam: Present: soft, Non-Tender, normal bowel sounds. Absent: tender ness, distention, guarding, rebound, rigidity - Extremities Exam Extremities exam: Present: normal inspection, full ROM. Absent: tenderness, pedal edema - Back Exam Back exam: Present: normal inspection, full ROM. Absent: tenderness - Neurological Exam Neurological exam: Present: alert, oriented X3 - Skin Skin exam: Present: warm, dry, intact, normal color Course Vital Signs Temperature 99.3 F 07/01/18 16:04 Pulse Rate 127 07/01/18 16:04 Respiratory Rate 20 07/01/18 16:04 Blood Pressure 139/92 07/01/18 16:04 O2 Sat by Pulse Oximetry 96 07/01/18 16:04 Temperature 99.3 F 07/01/18 16:04 Pulse Rate 121 07/01/18 18:00 Respiratory Rate 20 07/01/18 18:00 Blood Pressure 135/79 07/01/18 18:00 O2 Sat by Pulse Oximetry 92 07/01/18 18:00 Oxygen Delivery Oxygen Delivery High Flow Nasal Cannula Shortness of Breath/Dyspnea - [facility] Narrative Medical decision making narrative: 37-year-old female presented to the emergency department for shortness of breath. Patient seems to have pneumonia based on chest x-ray that was done. EKG was done and had no acute changes. We did get blood cultures I did start patient on Levaquin. Patient's labs show white blood cell count. Otherwise there are no acute changes troponin was negative. Patient will be admitted to the hospital for community acquired pneumonia. Otherwise patient has no other complaints no further treatment is needed at this time. Patient did not meet severe sepsis or shock septic shock criteria. Spoke with the hospitalist Dr. Duke Chest X-Ray 07/01/18 16:08 IMPRESSION: Low lung volumes. Increased bilateral perihilar opacification, infiltrate or edema. D/ / Sage Rodrigez MD / Sage Rodrigez MD Interpreting Provider: Sage Rodrigez MD - Medical Records Medical records reviewed: Yes I reviewed the patient's medical records. - Lab Data Lab results reviewed: Yes I reviewed the patient's lab results. Result diagrams: 07/01/18 16:23 07/01/18 16:23 Lab Results 07/01/18 07/01/18 07/01/18 Range/Units 16:23 16:23 16:23 WBC 15.6 H (4.3-11.1) K/mcL RBC 4.11 (3.82-4.97) M/mcL Hgb 9.0 L (11.5-15.4) g/dL Hct 33.6 L (35.3-44.9) % MCV 81.8 L (83.0-100.0) fL MCH 21.9 L (28.0-33.3) pg MCHC 26.8 L (31.6-35.5) g/dL RDW 19.8 H (11.5-14.5) % Plt Count 265 (140-400) K/mcL MPV 9.1 L (9.4-12.4) fL Immature Gran % 0.6 (0-4) % Seg Neutrophils % 81.6 % Lymphocytes % 9.9 % Monocytes % 7.1 % Eosinophils % 0.5 % Basophils % 0.3 % Neutrophils # 12.7 H (1.6-8.9) K/mcL Lymphocytes # 1.5 (0.6-4.6) K/mcL Monocytes # 1.1 (0.0-1.3) K/mcL Eosinophils # 0.1 (0.0-0.6) K/mcL Basophils # 0.1 (0.0-0.2) K/mcL Nucleated RBCs/100 WBC 0.2 H (0) /100 WBC Clumped Platelets Few A (Not Present) Large Platelets Present A (Not Present) Hypochromasia Present A (Not Present) Anisocytosis 2+ A (Not Present) Microcytosis Present A (Not Present) D-Dimer 484 (0-500) ng/mLFEU Sodium 136 (136-145) mEq/L Potassium 3.9 (3.5-5.1) mEq/L Chloride 96 L (98-107) mEq/L Carbon Dioxide 36 H (23-29) mEq/L BUN 5 L (6-20) mg/dL Creatinine 0.68 (0.60-1.20) mg/dL Est GFR ( Amer) > 60 (> 60) Est GFR (Non-Af Amer) > 60 (> 60) BUN/Creatinine Ratio 7 (6-26) Glucose 100 (70-105) mg/dL Calculated Osmolality 279 L (280-300) Calcium 8.8 (8.6-10.3) mg/dL Troponin I < 0.03 (< 0.04) ng/mL B-Natriuretic Peptide (Less than 100) pg/mL 07/01/18 Range/Units 16:23 WBC (4.3-11.1) K/mcL RBC (3.82-4.97) M/mcL Hgb (11.5-15.4) g/dL Hct (35.3-44.9) % MCV (83.0-100.0) fL MCH (28.0-33.3) pg MCHC (31.6-35.5) g/dL RDW (11.5-14.5) % Plt Count (140-400) K/mcL MPV (9.4-12.4) fL Immature Gran % (0-4) % Seg Neutrophils % % Lymphocytes % % Monocytes % % Eosinophils % % Basophils % % Neutrophils # (1.6-8.9) K/mcL Lymphocytes # (0.6-4.6) K/mcL Monocytes # (0.0-1.3) K/mcL Eosinophils # (0.0-0.6) K/mcL Basophils # (0.0-0.2) K/mcL Nucleated RBCs/100 WBC (0) /100 WBC Clumped Platelets (Not Present) Large Platelets (Not Present) Hypochromasia (Not Present) Anisocytosis (Not Present) Microcytosis (Not Present) D-Dimer (0-500) ng/mLFEU Sodium (136-145) mEq/L Potassium (3.5-5.1) mEq/L Chloride (98-107) mEq/L Carbon Dioxide (23-29) mEq/L BUN (6-20) mg/dL Creatinine (0.60-1.20) mg/dL Est GFR ( Amer) (> 60) Est GFR (Non-Af Amer) (> 60) BUN/Creatinine Ratio (6-26) Glucose (70-105) mg/dL Calculated Osmolality (280-300) Calcium (8.6-10.3) mg/dL Troponin I (< 0.04) ng/mL B-Natriuretic Peptide 33 (Less than 100) pg/mL - Radiology Data Radiology results reviewed: Yes I reviewed the patient's radiology results. - EKG Data EKG attestation: Yes I reviewed and interpreted this EKG. EKG results narrative: EKG done at 1633 review myself and attending shows sinus tachycardia rate of 123, VA interval 129, QRS 80, QTC 418 there is no acute ST changes no acute T- wave changes no other signs of ischemia. No signs of hypertrophy, heart and, heart block. No Latha PW/Brugada/HOCM. Changes based on old EKG done 04/23/18
[2018-07-01] MEDS ORDERED: Naloxone 0.4 MG/ML INJ IVP PRN (20:58)
[2018-07-01] MEDS ORDERED: Albuterol 2.5 MG/3 ML NEBULIZER IH PRN (21:04)
--- NOTE | 2018-07-01 22:39 | Internal Med History&Physical ---
Date of Encounter: 07/01/18 Time of Encounter: 20:20 Internal Medicine - H&P: HPI Chief complaint: Shortness of breath Admitted From: Emergency Dept Plans for Post Hospital Care: Home History of present illness: Ms. Monet is a 37 year old female Patient presented to the emergency room with shortness of breath. She has a long history of COPD, and uses high levels of oxygen at home anywhere between 8 and 12 L. She says normally she is on about 10 L of oxygen all the time. She has a dual oxygen delivery device, and follows regularly with pulmonology. She indicates that starting yesterday her oxygen machines malfunctioned and the humidifier drained out. This caused her oxygen to stop working while she was as leep and when she woke up she noted that her oxygen saturation was 48%. She replenished the fluid in the humidifier, and thought that the problem had corrected itself. But her oxygen continued to not work and therefore she called emergency medical services. When they arrived they noted saturations in the 60s, placed on a nonrebreather mask and she improved to the 90s. She was recently seen by her primary care physician on June 29, and prior to this she was in the hospital and discharged on May 02. At that time she was treated for COPD exacerbation and healthcare associated pneumonia. Her normal baseline oxygen saturation is about 93%. She is a heavy smoker, smoking anywhere between 2 and 5 packs of cigarettes a day. She rolls her own cigarettes, and despite efforts to quit in the past she continues to smoke. In the emergency room patient's initial vital signs: Temperature 99.3, heart rate 127, respiratory rate 20, blood pressure 139/92. She is saturating at 96% on 15 L high flow nasal cannula. CBC revealed a white count of 15.6, hemoglobin of 9.0, and platelets of 265. BMP was within normal limits. D-dimer was 484 and initial troponin was undetectable. BNP was 33. A chest x-ray was performed that showed low lung volumes with increased bilateral perihilar opacification, infiltrate or edema. An EKG was performed that showed sinus tachycardia but no significant ST changes when compared to previous EKG. She was given a dose of levofloxacin, blood cultures were drawn, she was given breathing treatments and IV steroids. She was admitted to the hospital for further management. Upon my evaluation, patient is resting in the hospital bed, she seems frustrated because she initially did not want to be admitted to the hospital. She says that she was just here, and felt that she could just go home. Her mother who is at bedside convinced her that because her oxygen remains to be low she should stay in the hospital and be observed. The patient was worried that she would end up catching pneumonia again. I informed her that her x-ray appeared to have signs of pneumonia, but this could be residual from her previous admission and also due to her lung pathologies. She indicates that she has recently finished a course of antibiotics from her PCP. She denies chest pain, abdominal pain, nausea, vomiting, diarrhea and constipation. She feels short of breath but this is improved since her arrival. She has a long history of lung problems in her family mostly secondary to smoking. I asked her about her CODE STATUS, and after some discussion patient stated that she would not want to be resuscitated nor intubated if they were necessary. Upon arrival to the floor however she requested to be changed to full code. Past Med Surg Social Fam HX - Past Medical History Medical history: arthritis, asthma, COPD, fibromyalgia, GERD, migraine, osteoporosis, renal disease, other Additional medical history: Pulmonary fibrosis Psychiatric history: anxiety, bipolar, depression - Past Surgical History Surgical History: other Additional surgical history: Thoracotomy, tubal, tonsilectomy, 2 bronchoscopy - Social History Smoking Status: Current every day smoker Smokeless Tobacco Status: No Alcohol use: rarely Drug use: none - Family History Mother Family Member Ethnicity: Non- Living Status: Still Living Hx Family Cardiac Disorders: Yes (HTN) Hx Family Respiratory Disorders: No Hx Family Cancer: No Hx Family GI Disorders: Yes (Hiatel hernia, GERD) Hx Family Endocrine Disorder: Yes Hx Family Neuromuscular Disorders: Yes (fibromyalgia) Hx Family Neurologic Disorders: No Hx Family HEENT Disorders: No Hx Family Autoimmune Disorders: No Father Living Status: Hx Family Respiratory Disorders: Yes Hx Family Cancer: Yes (lung) Internal Medicine - H&P: Meds DULoxetine [Cymbalta] 60 mg PO BID 10/01/14 [History] Ipratropium/Albuterol Neb [Duoneb] 3 ml IH Q6HR PRN 02/03/16 [History] Tiotropium [place] [Spiriva Respimat] 2 puff IH DAILY 02/03/16 [History] Baclofen [Lioresal] 10 mg PO TID PRN 04/19/16 [History] Budesonide/Formoterol 160/4.5 [Symbicort 160/4.5] 2 puff IH BIDR 07/28/17 [History] SUMAtriptan Succinate [Imitrex] 100 mg PO DAILY PRN 07/28/17 [History] Esomeprazole Magnesium [Nexium] 40 mg PO DAILY PRN 10/10/17 [History] Gabapentin [Neurontin] 800 mg PO QID 10/10/17 [History] Furosemide [Lasix] 40 mg PO DAILY 02/02/18 [History] Potassium Citrate [Urocit-K] 10 meq PO DAILY 02/02/18 [History] diazePAM [Valium] 10 mg PO Q8H PRN 02/02/18 [History] Albuterol Sulfate [Ventolin Hfa] 1 - 2 puff IH Q4H PRN 02/04/18 [History] Naproxen 500 mg PO BID 03/02/18 [History] Aripiprazole [Abilify] 30 mg PO DAILY 04/23/18 [History] Allergy/AdvReac Type Severity Reaction Status Date / Time ketorolac [From Toradol] Allergy Intermediate Weakness Verified 03/02/18 03:05 Pneumococcal Vaccine Allergy Intermediate Rash Verified 03/02/18 03:05 [From Prevnar] tramadol Allergy Intermediate Weakness Verified 03/02/18 03:05 Cefaclor Allergy Rash Verified 03/02/18 03:05 Asenapine [From Saphris] AdvReac See Verified 03/02/18 03:05 Comments lamotrigine [From Lamictal] AdvReac Migraine Verified 03/02/18 03:05 lurasidone [From Latuda] AdvReac See Verified 03/02/18 03:05 Comments All Systems PM: A 10-system review of systems was performed and is negative for pertinent findings except as documented above in the HPI. - Constitutional Vitals: Temp Pulse Resp BP Pulse Ox 98.2 F 116 18 137/95 89 07/01/18 21:47 07/01/18 21:47 07/01/18 21:47 07/01/18 21:47 07/01/18 21:47 General appearance: Present: cooperative, mild distress, A&O X 3, no acute distress, answers questions appropriately Exam: - - Head Head exam: Present: normal inspection - Eye Eye exam: Present: EOMI, normal appearance - Respiratory Respiratory exam: Present: decreased breath sounds, rales, wheezes. Absent: CTAB, respiratory distress, rhonchi - Cardiovascular Cardiovascular exam: Present: RRR, tachycardia. Absent: diastolic murmur, systolic murmur - GI/Abdominal GI/Abdominal exam: Present: normal bowel sounds, soft. Absent: tenderness - Extremities Exam Extremities exam: Present: warm, radial pulses palpable and symmetrical. Absent: calf tenderness, pedal edema, tenderness Additional comments: Finger clubbing noted bilaterally - Neurological Exam Neurological exam: Present: no focal deficits, strengths equal and symetr throughout. Absent: motor sensory deficit, facial droop, speech deficit - Skin Skin exam: Present: dry, normal color, warm Internal Med - H&P Results - Labs CBC & Chem 7: 07/01/18 16:23 07/01/18 16:23 Labs: Short CBC 07/01/18 Range/Units 16:23 WBC 15.6 H (4.3-11.1) K/mcL Hgb 9.0 L (11.5-15.4) g/dL Hct 33.6 L (35.3-44.9) % Plt Count 265 (140-400) K/mcL Neutrophils # 12.7 H (1.6-8.9) K/mcL BMP 07/01/18 16:23 Sodium 136 Potassium 3.9 Chloride 96 L Carbon Dioxide 36 H BUN 5 L Creatinine 0.68 Glucose 100 Calcium 8.8 Cardiac Enzymes 07/01/18 Range/Units 16:23 Troponin I < 0.03 (< 0.04) ng/mL - Impressions ITS Impressions Chest X-Ray 07/01/18 16:08 IMPRESSION: Low lung volumes. Increased bilateral perihilar opacification, infiltrate or edema. D/ / Sage Rodrigez MD / Sage Rodrigez MD Interpreting Provider: Sage Rodrigez MD - Assessment and Plan (1) HCAP (healthcare-associated pneumonia) Current Visit: No Status: Resolved Assessment and plan: Patient's chest x-ray showed bilateral possible infiltration. She has been treated for pneumonia in the past. She also has elevated white blood cell. She is on antibiotics frequently, most recently was on doxycycline and Levaquin. She saw her PCP 2 days ago and says at that time her PCP was not suspicious of pneumonia. With possible pneumonia, could have contributed to her COPD exacerbation. Continue triple antibiotic therapy Levaquin, Zosyn and vancomycin. Follow-up blood cultures when available Obtain urine antigens Continue oxygen supplementation as needed Bedside pulse oximeter Cardiac monitoring (2) Acute and chronic respiratory failure ([id number]) Current Visit: No Status: Resolved Assessment and plan: Secondary to long history of smoking and COPD. She is on high levels of oxygen at home 06/09. She received breathing treatments and IV steroids in the emergency room and was started on antibiotics as well. She is currently saturating in the mid 90s on high flow oxygen. Continue oxygen supplementation as needed Treating pneumonia as above Continue breathing treatments and steroids BiPAP machine at night Respiratory therapy to assist with oxygen delivery Qualifiers: Respiratory failure complication: hypoxia Qualified Code(s): J96.21 - Acute and chronic respiratory failure with hypoxia (3) Dependence on continuous supplemental oxygen Current Visit: No Status: Chronic Assessment and plan: On high levels oxygen at home up to 12 L. Follows with pulmonology regularly Continue oxygen and BiPAP with respiratory therapy assistance Social work consult for oxygen needs (4) Morbid (severe) obesity with alveolar hypoventilation Current Visit: No Status: Chronic Assessment and plan: Likely playing a role in her hypoxia. Patient uses BiPAP at night. Continue BiPAP (5) Tobacco abuse Current Visit: No Status: Chronic Assessment and plan: Heavy nicotine use. Patient rolls her own cigarettes and smokes anywhere from 2-5 packs a day. Patient declines nicotine patch stating that she has an allergy to it. (6) DVT prophylaxis Current Visit: No Status: Acute Assessment and plan: Subcutaneous Heparin - Time Spent With Patient Total time spent is greater than 50% in coordination of care (as documented) at patient's floor/unit and/or counseling patient: Greater than 35 minutes
[2018-07-01] MEDS: Ipratropium/Albuterol Neb 3 ML IH SCH (23:08)
[2018-07-02] MEDS ORDERED: diazePAM 10 MG TABLET PO PRN (00:54)
[2018-07-02] MEDS: Piperacillin/Tazobactam 3.375 GM in 0.9 % Sodium Chloride Mini Bag 100 ML IVPB SCH ×3 (01:13→15:14)
[2018-07-02] MEDS: Gabapentin 400 MG CAPSULE PO SCH ×2 (01:13→08:12)
[2018-07-02] MEDS ORDERED: Saline Nasal Spray 44 ML BOTTLE NS PRN (02:23)
[2018-07-02] MEDS: Ipratropium/Albuterol Neb 3 ML IH SCH ×4 (04:13→21:57)
[2018-07-02 05:05] LABS: Hemoglobin 9.1 g/dL (11.5-15.4); Mean Corpuscular HGB Conc 26.8 g/dL (31.6-35.5); Mean Corpuscular Hemoglobin 21.9 pg (28.0-33.3); Mean Corpuscular Volume 81.9 fL (83.0-100.0); Mean Platelet Volume 9.1 fL (9.4-12.4); Platelet Count 255 K/mcL (140-400); Red Blood Count 4.15 M/mcL (3.82-4.97); Red Cell Distribution Width 19.3 % (11.5-14.5)
[2018-07-02 05:22] LABS: BUN/Creatinine Ratio 9 (6-26); Blood Urea Nitrogen 6 mg/dL (6-20); Calcium 8.8 mg/dL (8.6-10.3); Carbon Dioxide 37 mEq/L (23-29); Chloride 97 mEq/L (98-107); Glucose 106 mg/dL (70-105); Osmolality,Calculated 286 (280-300); Potassium 4.4 mEq/L (3.5-5.1); Sodium 139 mEq/L (136-145); eGFR For Non-African Americans > 60 (> 60)
[2018-07-02] MEDS: *HR* Heparin 5,000 UNIT/ML VIAL SQ SCH ×2 (05:40→17:17)
[2018-07-02] MEDS: predniSONE 20 MG TABLET PO SCH (08:11)
[2018-07-02 11:10] LABS: ABG Base Excess 13 mEq/L (-2 to 3); ABG HCO3 41 mEq/L (21-27); ABG Oxygen Saturation 87 % (95-98); ABG PCO2 74 mmHg (35-45); ABG PH 7.36 pH Units (7.32-7.45); ABG PO2 59 mmHg (85-104); ABG TCO2 43 mEq/L (20-26); Blood Gas PEEP 6 cm H2O; Blood Gas Pressure Support 12 cm H2O
--- NOTE | 2018-07-02 11:24 | Internal Med Progress Note ---
Hospitalist Progress Note - Encounter Date of Encounter: 07/02/18 Time of Encounter: 11:20 - Subjective Interval History: Seen and examined at bedside. Patient is new to me, information obtained from chart review and patient report although patient is drowsy and lethargic and does not provide details. Says she received her Valium and gabapentin together and ventilator sleepy. Patient was initially initially examined at 11:00. ABGs were drawn she was drowsy and lethargic which showed PCO2 74. Patient was reassessed at 1124. Currently on BiPAP. Responsive but remains drowsy. Transferring to stepdown/intermediate floor and consult with pulmonology - Exam Vitals: Temp Pulse Resp BP Pulse Ox 97.4 F L 116 19 131/84 95 07/02/18 10:38 07/02/18 10:38 07/02/18 11:10 07/02/18 10:38 07/02/18 11:10 Exam: General appearance: 37-year-old female who appears stated age and acutely ill. - Head Head exam: Present: atraumatic, normocephalic - Eye Eye exam: Present: PERRL, conjuntiva pink, sclera anicteric Pupils: Present: PERRL - Neck Neck exam general surgery: Present: supple, trachea midline. Absent: lymphadenopathy - Respiratory Respiratory exam: Shallow respirations. Lung sounds diminished. On BiPAP. Mild respiratory distress. - Cardiovascular Cardiovascular exam: Present: RRR, +S1, +S2. Absent: diastolic murmur, gallop, rubs, systolic murmur - GI/Abdominal GI/Abdominal exam: Present: normal bowel sounds, soft, no peritoneal signs. Ab sent: distended, tenderness - Extremities Exam Extremities exam: Bilateral lower extremities with diffuse erythema and nonpitting edema - Neurological Exam Neurological exam: Present: CN II-XII intact, oriented X3, no focal deficits. Absent: pronater drift, facial droop, speech deficit - Skin Skin exam: Present: dry, intact - Assessment and Plan (1) Acute on chronic respiratory failure with hypoxia and hypercapnia Current Visit: No Status: Resolved Assessment and Plan: has known COPD and on high flow oxygen at home. Presented with worsening shortness of breath and hypoxia after O2 concentrator malfunctioned throughout the night. O2 saturations 60% when EMS arrived, she was placed on a nonrebreather mask and O2 saturations improved to the 90s. Came drowsy and lethargic on 07/02/18 exam. ABGs showed pH 7.36, P CO2 74, PCO2 59. Placed on BiPAP and transferred to intermediate level care. Continue treating underlying COPD exacerbation and pneumonia. Pulmonology consulted (2) HCAP (healthcare-associated pneumonia) Current Visit: No Status: Resolved Assessment and Plan: presented with worsening shortness of breath. CXR with increased bilateral infiltrates concerning for pneumonia. Recently hospitalized 04/2018 for healthcare associated pneumonia. Urinary antigens negative. Received high-dose IV steroids in ER. Continue IV Levaquin, Vanco, Zosyn, steroid burst. MRSA swab pending. If negative stop vancomycin. (3) Acute on chronic diastolic (congestive) heart failure Current Visit: Yes Status: Acute Assessment and Plan: 09/2017 TTE with EF 55% and evidence of diastolic dysfunction. CXR concerning for possible pulmonary edema. BNP 33. Holding home Lasix. Continue IV diuresis for now. Echocardiogram pending. Repeat CXR in a.m. (4) Acute metabolic encephalopathy Current Visit: Yes Status: Acute Assessment and Plan: secondary to CO2 retention. Continue BiPAP. Anticipate mentation will improve as respiratory status improves. Holding all sedating medications at this time. Report of care for now. If no improvement then consider further workup (5) Cellulitis Current Visit: Yes Status: Acute Assessment and Plan: nonpurulent cellulitis to bilateral lower extremities. Symptomatic with erythema, warmth and tenderness. No drainage to culture. On Vanco and Zosyn fo r pneumonia which should cover cellulitis. (6) Morbid (severe) obesity with alveolar hypoventilation Current Visit: No Status: Chronic Assessment and Plan: hx [place] and wears BiPAP at home. Patient reported compliance. Suspect this is playing a role and hypoxia. Continue BiPAP (7) Tobacco abuse Current Visit: No Status: Chronic Assessment and Plan: current smoker. Apparently patient rolls her own cigarettes and smokes anywhere from 2-5 packs per day. Declined nicotine replacement therapy. (8) DVT prophylaxis Current Visit: No Status: Acute Assessment and Plan: heparin - Time Spent with Patient Total time spent is greater than 50% in coordination of care (as documented) at patient's floor/unit and/or counseling patient: Internal Medicine: Result - Labs CBC & Chem 7: 07/02/18 04:49 07/02/18 04:49 Labs: Short CBC 07/01/18 07/02/18 Range/Units 16:23 04:49 WBC 15.6 H 9.2 (4.3-11.1) K/mcL Hgb 9.0 L 9.1 L (11.5-15.4) g/dL Hct 33.6 L 34.0 L (35.3-44.9) % Plt Count 265 255 (140-400) K/mcL Neutrophils # 12.7 H (1.6-8.9) K/mcL BMP 07/01/18 07/02/18 16:23 04:49 Sodium 136 139 Potassium 3.9 4.4 Chloride 96 L 97 L Carbon Dioxide 36 H 37 H BUN 5 L 6 Creatinine 0.68 0.64 Glucose 100 106 H Calcium 8.8 8.8 Cardiac Enzymes 07/01/18 Range/Units 16:23 Troponin I < 0.03 (< 0.04) ng/mL - ABG Interpretation ABG results: ABG ABG pH 7.36 pH Units (7.32-7.45) 07/02/18 11:01 ABG pCO2 74 mmHg (35-45) H* 07/02/18 11:01 ABG pO2 59 mmHg (85-104) L 07/02/18 11:01 ABG O2 Saturation 87 % (95-98) L 07/02/18 11:01 PT/INR, D-dimer 484 ng/mLFEU (0-500) 07/01/18 16:23 - Impressions Impressions Chest X-Ray 07/01/18 16:08 IMPRESSION: Low lung volumes. Increased bilateral perihilar opacification, infiltrate or edema. D/ / Sage Rodrigez MD / Sage Rodrigez MD Interpreting Provider: Sage Rodrigez MD Consult Discharge Plan - Plan Referrals: Mervin Santiago MD [Primary Care Provider] -
--- NOTE | 2018-07-02 12:12 | Pulmonology Consult Note ---
Date of Encounter: 07/02/18 Time of Encounter: 12:11 Assessment and Plan (1) Acute on chronic respiratory failure with hypoxia and hypercapnia Current Visit: No Status: Acute This is a combination of factors including mild COPD exacerbation and hydrostat ic pulmonary edema from diastolic dysfunction. She will benefit from continued use of BiPAP as needed for work of breathing along with sleeping and at night continue high flow oxygen to keep saturation greater than 88% around 92% encouraged her to get out of bed and in the chair and ambulate as tolerated (2) COPD exacerbation Current Visit: Yes Status: Acute Mild COPD exacerbation I suspect it can continue IV steroids today with transition to oral regimen to complete a two-week taper Schedule bronchodilators Symbicort 160/4.5 (3) Pneumonia Current Visit: No Status: Acute Patient is on broad-spectrum antibiotics for possible pneumonia I reviewed her chest x-ray I think that this is unlikely I would not likely stop antibiotics tomorrow if cultures remain negative could consider starting macrolide antibiotic for COPD exacerbation but otherwise I do not feel strongly that she would require antimicrobial therapy at this time Qualifiers: Pneumonia type: due to unspecified organism Laterality: right Lung location: lower lobe of lung Qualified Code(s): J18.1 - Lobar pneumonia, unspecified organism (4) Acute on chronic diastolic (congestive) heart failure Current Visit: Yes Status: Acute Agree with IV diuretic likely increased to IV Lasix 40 mg twice a day plan to d iurese 1-1.5 L negative over the next 24 hours as tolerated by kidney function (5) Morbid (severe) obesity with alveolar hypoventilation Current Visit: No Status: Chronic Continue supplemental oxygen and BiPAP. We will need to also lose weight (6) Tobacco abuse Current Visit: No Status: Chronic It is absolutely imperative that the patient stop smoking completely in order to make a meaningful recovery History of Present Illness Consult date: 07/02/18 Requesting physician: Sonya Khan Reason for consult: COPD Chief complaint: Low Oxygen Level History of present illness: Patient is a 37-year-old woman well known to the pulmonary service she suffers from chronic hypoxic hypercapnic respiratory failure which is secondary to advanced COPD complicated by respiratory bronchiolitis ILD continued tobacco abu se OKSANA obesity hypoventilation syndrome and she also has diastolic heart failure. She presented from home to the emergency room complaining of having low oxygen level at home apparently the humidifier on her oxygen tank broke and there is some interruption in the flow oxygen and this caused hypoxemia when she awoke from sleep. In which she tells me her oxygen level was as low as 48%. She presented to the ED and was noted to be hypoxic there is well and workup revealed possible bilateral pneumonia or at least perihilar opacity she did have a leukocytosis on admission. She was started on broad-spectrum antibiotics along with bronchodilators and steroids and transferred to the floor. When I see with her today she says she feels near her baseline she denies any increased cough or sputum production she states that she just finished a course of Levaquin as an outpatient for pneumonia. She unfortunately continues to smoke but has been able to quit for long as 3 weeks in the recent past. Encouraged her to continue to do so. She has noticed some lower extremity swelling denies any fevers chills hemoptysis night sweats unintentional weight loss nausea vomiting or diarrhea Past Med Surg Social Fam HX - Past Medical History Medical history: arthritis, asthma, COPD, fibromyalgia, GERD, migraine, osteoporosis, renal disease, other Additional medical history: Pulmonary fibrosis Psychiatric history: anxiety, bipolar, depression - Past Surgical History Surgical History: other Additional surgical history: Thoracotomy, tubal, tonsilectomy, 2 bronchoscopy - Social History Smoking Status: Current every day smoker Smokeless Tobacco Status: No Alcohol use: rarely Drug use: none - Family History Mother Family Member Ethnicity: Non- Living Status: Still Living Hx Family Cardiac Disorders: Yes (HTN) Hx Family Respiratory Disorders: No Hx Family Cancer: No Hx Family GI Disorders: Yes (Hiatel hernia, GERD) Hx Family Endocrine Disorder: Yes Hx Family Neuromuscular Disorders: Yes (fibromyalgia) Hx Family Neurologic Disorders: No Hx Family HEENT Disorders: No Hx Family Autoimmune Disorders: No Father Living Status: Hx Family Respiratory Disorders: Yes Hx Family Cancer: Yes (lung) Medications and Allergies DULoxetine [Cymbalta] 60 mg PO BID 10/01/14 [History] Ipratropium/Albuterol Neb [Duoneb] 3 ml IH Q6HR PRN 02/03/16 [History] Tiotropium [place] [Spiriva Respimat] 2 puff IH DAILY 02/03/16 [History] Baclofen [Lioresal] 10 mg PO TID PRN 04/19/16 [History] Budesonide/Formoterol 160/4.5 [Symbicort 160/4.5] 2 puff IH BIDR 07/28/17 [History] SUMAtriptan Succinate [Imitrex] 100 mg PO DAILY PRN 07/28/17 [History] Esomeprazole Magnesium [Nexium] 40 mg PO DAILY PRN 10/10/17 [History] Gabapentin [Neurontin] 800 mg PO QID 10/10/17 [History] Furosemide [Lasix] 40 mg PO DAILY 02/02/18 [History] Potassium Citrate [Urocit-K] 10 meq PO DAILY 02/02/18 [History] diazePAM [Valium] 10 mg PO Q8H PRN 02/02/18 [History] Albuterol Sulfate [Ventolin Hfa] 1 - 2 puff IH Q4H PRN 02/04/18 [History] Naproxen 500 mg PO BID 03/02/18 [History] Aripiprazole [Abilify] 30 mg PO DAILY 04/23/18 [History] Allergy/AdvReac Type Severity Reaction Status Date / Time ketorolac [From Toradol] Allergy Intermediate Weakness Verified 07/02/18 10:42 Pneumococcal Vaccine Allergy Intermediate Rash Verified 07/02/18 10:42 [From Prevnar] tramadol Allergy Intermediate Weakness Verified 07/02/18 10:42 Cefaclor Allergy Rash Verified 07/02/18 10:42 Asenapine [From Saphris] AdvReac See Verified 07/02/18 10:42 Comments lamotrigine [From Lamictal] AdvReac Migraine Verified 07/02/18 10:42 lurasidone [From Latuda] AdvReac See Verified 07/02/18 10:42 Comments All Systems: The remainder of the systems were reviewed and are negative Physical Examination Vital Signs: Vital Signs, Last 4 Hours Temp Pulse Resp BP Pulse Ox 07/02/18 11:10 19 95 07/02/18 10:38 97.4 F L 116 17 131/84 90 General appearance: no acute distress, other (Sleepy appearing occasionally) Eyes: nonicteric ENT: oropharynx moist Mallampati (class): 4 Neck: supple Effort: normal Auscultation: bilateral: wheezes (Faint expiratory wheeze appreciated more in the anterior lung craven), rhonchi (Scattered rhonchi in both lung craven) Gastrointestinal: normoactive bowel sounds Integumentary: normal Extremities: edema (Bilateral nonpitting edema ) normal mental status, non-focal exam, pupils equal and round mood appropriate Results - Laboratory Findings CBC and BMP: 07/02/18 04:49 07/02/18 04:49 ABG ABG pH 7.36 pH Units (7.32-7.45) 07/02/18 11:01 ABG pCO2 74 mmHg (35-45) H* 07/02/18 11:01 ABG pO2 59 mmHg (85-104) L 07/02/18 11:01 ABG O2 Saturation 87 % (95-98) L 07/02/18 11:01 PT/INR, D-dimer 484 ng/mLFEU (0-500) 07/01/18 16:23 Abnormal lab findings: Abnormal lab results WBC 15.6 K/mcL (4.3-11.1) H 07/01/18 16:23 Hgb 9.1 g/dL (11.5-15.4) L 07/02/18 04:49 Hct 34.0 % (35.3-44.9) L 07/02/18 04:49 MCV 81.9 fL (83.0-100.0) L 07/02/18 04:49 MCH 21.9 pg (28.0-33.3) L 07/02/18 04:49 MCHC 26.8 g/dL (31.6-35.5) L 07/02/18 04:49 RDW 19.3 % (11.5-14.5) H 07/02/18 04:49 MPV 9.1 fL (9.4-12.4) L 07/02/18 04:49 12.7 K/mcL (1.6-8.9) H 07/01/18 16:23 Nucleated RBCs/100 WBC 0.2 /100 WBC (0) H 07/01/18 16:23 Few (Not Present) A 07/01/18 16:23 Present (Not Present) A 07/01/18 16:23 Present (Not Present) A 07/01/18 16:23 2+ (Not Present) A 07/01/18 16:23 Present (Not Present) A 07/01/18 16:23 ABG pCO2 74 mmHg (35-45) H* 07/02/18 11:01 ABG pO2 59 mmHg (85-104) L 07/02/18 11:01 ABG HCO3 41 mEq/L (21-27) H 07/02/18 11:01 ABG Total CO2 43 mEq/L (20-26) H 07/02/18 11:01 ABG O2 Saturation 87 % (95-98) L 07/02/18 11:01 ABG Base Excess 13 mEq/L (-2 to 3) H 07/02/18 11:01 Chloride 97 mEq/L (98-107) L 07/02/18 04:49 Carbon Dioxide 37 mEq/L (23-29) H 07/02/18 04:49 BUN 5 mg/dL (6-20) L 07/01/18 16:23 Glucose 106 mg/dL (70-105) H 07/02/18 04:49 279 (280-300) L 07/01/18 16:23 - Microbiology Findings Microbiology Findings: Microbiology, Last 48 Hours 07/01/18 23:45 Legionella Antigen - Final Urine,Clean Catch Streptococcus pneumoniae Antigen (M - Final 07/01/18 19:01 Blood Culture - Preliminary Peripheral Venipuncture Culture is incubating and being continuously monitored for growth. Final report to follow. 07/01/18 19:01 Blood Culture - Preliminary Peripheral Venipuncture Culture is incubating and being continuously monitored for growth. Final report to follow. - Diagnostic Findings Chest x-ray: report reviewed, image reviewed - Clinical Findings Intake & Output: Intake & Output 07/01/18 07/02/18 07/02/18 23:59 07:59 15:59 Intake Total 150 / 150 840 / 1440 600 / 1440 Output Total 1000 / 1000 1000 / 1800 800 / 1800 Balance -850 / -850 -160 / -360 -200 / -360 Weight 139.6 kg 139.6 kg Consult Discharge Plan - Plan Referrals: Mervin Santiago MD [Primary Care Provider] -
[2018-07-02 13:19] LABS: Adenovirus Not Detected (Not Detect); Bordetella Pertussis Not Detected (Not Detect); Chlamydophila pneumoniae Not Detected (Not Detect); Coronavirus 229E Not Detected (Not Detect); Coronavirus HKU1 Not Detected (Not Detect); Coronavirus NL63 Not Detected (Not Detect); Coronavirus OC43 Not Detected (Not Detect); Human Metapneumovirus Not Detected (Not Detect); Human Rhinovirus/Enterovirus Not Detected (Not Detect); Influenza A Subtype 2009 H1 Not Detected (Not Detect); Influenza A Untypeable Not Detected (Not Detect); Influenza B Not Detected (Not Detect); Mycoplasma pneumoniae Not Detected (Not Detect); Parainfluenza Virus 1 Not Detected (Not Detect); Parainfluenza Virus 2 Not Detected (Not Detect); Parainfluenza Virus 3 Not Detected (Not Detect); Parainfluenza Virus 4 Not Detected (Not Detect); Respiratory Syncytial Virus Not Detected (Not Detect)
[2018-07-02] MEDS: Furosemide 40 MG/4 ML VIAL IVP SCH (13:28)
[2018-07-02] MEDS ORDERED: Levofloxacin 750 MG/150 ML 750 MG/150 ML BAG IVPB SCH (19:00)
[2018-07-02] MEDS ORDERED: diazePAM 5 MG TABLET PO ONE (23:25)
[2018-07-03] MEDS: Budesonide/Formoterol 160/4.5 1 PUFF INH IH SCH ×3 (00:17→22:30)
[2018-07-03] MEDS: Piperacillin/Tazobactam 3.375 GM in 0.9 % Sodium Chloride Mini Bag 100 ML IVPB SCH ×2 (00:25→10:05)
[2018-07-03] MEDS: Ipratropium/Albuterol Neb 3 ML IH SCH ×4 (04:31→22:30)
[2018-07-03] MEDS: *HR* Heparin 5,000 UNIT/ML VIAL SQ SCH ×2 (06:38→17:41)
[2018-07-03] MEDS ORDERED: Perflutren Lipid Microsphere 1.3 ML in 0.9 % Sodium Chloride 8.7 ML IVP ONE ×2 (07:02→07:21)
[2018-07-03 07:05] LABS: Hematocrit 31.4 % (35.3-44.9); Hemoglobin 8.5 g/dL (11.5-15.4); Mean Corpuscular HGB Conc 27.1 g/dL (31.6-35.5); Mean Corpuscular Hemoglobin 22.1 pg (28.0-33.3); Mean Corpuscular Volume 81.6 fL (83.0-100.0); Platelet Count 231 K/mcL (140-400); Red Blood Count 3.85 M/mcL (3.82-4.97); Red Cell Distribution Width 19.3 % (11.5-14.5)
[2018-07-03 07:27] LABS: Alanine Aminotransferase 19 Units/L (7-52); Albumin 3.5 g/dL (3.5-5.7); Albumin/Globulin Ratio 1.4 (1.1-2.2); Alkaline Phosphatase 61 Units/L (34-104); Aspartate Amino Transferase 17 Units/L (13-39); BUN/Creatinine Ratio 14 (6-26); Bilirubin,Total 0.2 mg/dL (0.3-1.0); Blood Urea Nitrogen 11 mg/dL (6-20); Calcium 8.8 mg/dL (8.6-10.3); Carbon Dioxide 37 mEq/L (23-29); Chloride 93 mEq/L (98-107); Globulin 2.5 g/dL (2.4-3.5); Glucose 95 mg/dL (70-105); Osmolality,Calculated 279 (280-300); Potassium 3.6 mEq/L (3.5-5.1); Sodium 135 mEq/L (136-145); eGFR For Non-African Americans > 60 (> 60)
--- NOTE | 2018-07-03 08:29 | Internal Med Progress Note ---
Hospitalist Progress Note - Encounter Date of Encounter: 07/03/18 Time of Encounter: 08:34 - Subjective Interval History: Patient seen and examined this was regulated. No acute overnight events. Breathing improved. Denies any fevers chills nausea vomiting or diarrhea. Denies any abdominal pain bowel or urinary complaints. - Exam Vitals: Temp Pulse Resp BP Pulse Ox 97.7 F 79 20 134/89 93 07/03/18 07:06 07/03/18 07:06 07/03/18 07:06 07/03/18 07:06 07/03/18 07:06 Exam: General: In no acute distress. Obese Respiratory exam: no accessory muscle use, b/l rhonchi scattered Cardiovascular exam: RRR, +S1, +S2. no murmur, gallop, rubs. GI/Abdominal exam: Non-tender, Non-distended, normal bowel sounds, soft, no peritoneal signs. Extremities exam: 2+ pedal edema, pulses palpable in b/l lower extremities. no calf tenderness Neurological exam: CN II-XII intact, AO X3, no focal deficits. Skin exam: No skin rash - Assessment and Plan (1) DVT prophylaxis Current Visit: No Status: Acute (2) Morbid (severe) obesity with alveolar hypoventilation Current Visit: No Status: Chronic (3) Tobacco abuse Current Visit: No Status: Chronic (4) HCAP (healthcare-associated pneumonia) Current Visit: No Status: Resolved (5) Acute on chronic respiratory failure with hypoxia and hypercapnia Current Visit: No Status: Acute (6) Acute on chronic diastolic (congestive) heart failure Current Visit: Yes Status: Acute (7) Acute metabolic encephalopathy Current Visit: Yes Status: Acute (8) Cellulitis Current Visit: Yes Status: Acute - Summary of Assessment and Plan Summary of Assessment and Plan: Assessment Acute on chronic respiratory failure with hypoxia and hypercapnia COPD exacerbation Pneumonia- unclear organism Acute on chronic diastolic heart failure Morbid obesity Obesity hypoventilation syndrome Tobacco abuse Plan - Symptoms combination of COPD exacerbation and pulmonary edema. Continue when necessary BiPAP. Continue with IV Lasix 40 daily. Renal function stable. Pulmonology following recommendation appreciated. - Continue with PO steroids, Symbicort and scheduled bronchodilators. Respiratory infectious panel negative. Urine antigen negative. will stop vanco mycin, zosyn and levaquin. Will change to macrolid for 5 day total of antibiotics - Bipap at night for OKSANA/OHA. - Discussed smoking cessation and weight loss - Does not have cellulitis of LE, likely congestion. - Time Spent with Patient Total time spent is greater than 50% in coordination of care (as documented) at patient's floor/unit and/or counseling patient: Internal Medicine: Result - Labs CBC & Chem 7: 07/03/18 06:42 07/03/18 06:42 Labs: Short CBC 07/03/18 Range/Units 06:42 WBC 8.6 (4.3-11.1) K/mcL Hgb 8.5 L (11.5-15.4) g/dL Hct 31.4 L (35.3-44.9) % Plt Count 231 (140-400) K/mcL BMP 07/03/18 06:42 Sodium 135 L Potassium 3.6 Chloride 93 L Carbon Dioxide 37 H BUN 11 Creatinine 0.79 Glucose 95 Calcium 8.8 Liver Function 07/03/18 Range/Units 06:42 Total Bilirubin 0.2 L (0.3-1.0) mg/dL AST 17 (13-39) Units/L ALT 19 (7-52) Units/L Alkaline Phosphatase 61 (34-104) Units/L Albumin 3.5 (3.5-5.7) g/dL - ABG Interpretation ABG results: ABG ABG pH 7.36 pH Units (7.32-7.45) 07/02/18 11:01 ABG pCO2 74 mmHg (35-45) H* 07/02/18 11:01 ABG pO2 59 mmHg (85-104) L 07/02/18 11:01 ABG O2 Saturation 87 % (95-98) L 07/02/18 11:01 PT/INR, D-dimer 484 ng/mLFEU (0-500) 07/01/18 16:23 Consult Discharge Plan - Plan Referrals: Mervin Santiago MD [Primary Care Provider] -
[2018-07-03] MEDS: predniSONE 20 MG TABLET PO SCH (09:19)
[2018-07-03] MEDS: Furosemide 40 MG/4 ML VIAL IVP SCH (09:19)
[2018-07-03] MEDS: Azithromycin 250 MG TABLET PO SCH (09:19)
[2018-07-03] MEDS: Gabapentin 300 MG CAPSULE PO SCH ×3 (09:56→21:21)
--- NOTE | 2018-07-03 10:04 | Electrocardiograph Report ---
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
--- NOTE | 2018-07-03 12:08 | Pulmonology Progress Note ---
Date of Encounter: 07/03/18 Time of Encounter: 12:00 Assessment and Plan (1) Acute on chronic respiratory failure with hypoxia and hypercapnia Current Visit: No Status: Acute Patient with acute on chronic hypoxic hypercapnic respiratory failure complicat ed by COPD and CHF exacerbation and nothing pneumonia is contributing to the current presentation. To continue with dialysis of bronchodilators and steroids since patient is a current hospital admission despite a BiPAP therapy patient might help with home noninvasive and ventilation for which we will do evaluated as an outpatient patient supposed to follow-up with me 07/13/2018 ask her to keep up the appointment. Patient is almost back to baseline we will recommend the discharge on steroid therapy at least 2 week tapered to chronic prednisone therapy at 10 mg we will reevaluate in the last week of June as an outpatient. (2) Morbid (severe) obesity with alveolar hypoventilation Current Visit: No Status: Chronic Today BiPAP for now during the night and also while sleeping. (3) COPD with acute exacerbation Current Visit: No Status: Acute To continue schedule bronchodilators and steroids. . Send her home on chronic steroid therapy pulmonary we will sign off for patient is almost coming back to her baseline also. Will see her in clinic on 07/13/2018 (4) Tobacco use Current Visit: No Status: Acute Also the importance of smoking cessation which will help in reducing the progre ssion of respiratory bronchiolitis associated interstitial lung disease. Patient not ready to quit smoking (5) Acute on chronic diastolic (congestive) heart failure Current Visit: Yes Status: Acute Subjective Principal diagnosis: COPD Exacerbation and CHF exacerbatio Interval history: Patient with end-stage COPD. Diastolic heart failure comes with the worsening shortness of breath increasing oxygen requirements patient symptoms are slowly getting back to baseline her oxygen requirement coming to her baseline. Patient denies any chest pain chest tightness denies any palpitation or syncope. Patient is here for evaluation of acute on chronic respiratory failure. Objective PUL Vital signs: Last Vital Signs Temp 97.4 F L 07/03/18 10:16 Pulse 109 07/03/18 10:16 Resp 18 07/03/18 10:26 BP 153/99 07/03/18 10:16 Pulse Ox 91 07/03/18 10:26 General appearance: no acute distress Effort: mildly labored Auscultation: bilateral: diminished breath sounds, wheezes Cardiovascular: regular rate and rhythm Gastrointestinal: normoactive bowel sounds Extremities: edema normal mental status, non-focal exam mood appropriate Results - Laboratory Findings CBC and BMP: 07/03/18 06:42 07/03/18 06:42 ABG ABG pH 7.36 pH Units (7.32-7.45) 07/02/18 11:01 ABG pCO2 74 mmHg (35-45) H* 07/02/18 11:01 ABG pO2 59 mmHg (85-104) L 07/02/18 11:01 ABG O2 Saturation 87 % (95-98) L 07/02/18 11:01 PT/INR, D-dimer 484 ng/mLFEU (0-500) 07/01/18 16:23 Abnormal lab findings: Abnormal lab results WBC 15.6 K/mcL (4.3-11.1) H 07/01/18 16:23 Hgb 8.5 g/dL (11.5-15.4) L 07/03/18 06:42 Hct 31.4 % (35.3-44.9) L 07/03/18 06:42 MCV 81.6 fL (83.0-100.0) L 07/03/18 06:42 MCH 22.1 pg (28.0-33.3) L 07/03/18 06:42 MCHC 27.1 g/dL (31.6-35.5) L 07/03/18 06:42 RDW 19.3 % (11.5-14.5) H 07/03/18 06:42 MPV 9.0 fL (9.4-12.4) L 07/03/18 06:42 12.7 K/mcL (1.6-8.9) H 07/01/18 16:23 Nucleated RBCs/100 WBC 0.2 /100 WBC (0) H 07/01/18 16:23 Few (Not Present) A 07/01/18 16:23 Present (Not Present) A 07/01/18 16:23 Present (Not Present) A 07/01/18 16:23 2+ (Not Present) A 07/01/18 16:23 Present (Not Present) A 07/01/18 16:23 ABG pCO2 74 mmHg (35-45) H* 07/02/18 11:01 ABG pO2 59 mmHg (85-104) L 07/02/18 11:01 ABG HCO3 41 mEq/L (21-27) H 07/02/18 11:01 ABG Total CO2 43 mEq/L (20-26) H 07/02/18 11:01 ABG O2 Saturation 87 % (95-98) L 07/02/18 11:01 ABG Base Excess 13 mEq/L (-2 to 3) H 07/02/18 11:01 Sodium 135 mEq/L (136-145) L 07/03/18 06:42 Chloride 93 mEq/L (98-107) L 07/03/18 06:42 Carbon Dioxide 37 mEq/L (23-29) H 07/03/18 06:42 BUN 5 mg/dL (6-20) L 07/01/18 16:23 Glucose 106 mg/dL (70-105) H 07/02/18 04:49 279 (280-300) L 07/03/18 06:42 0.2 mg/dL (0.3-1.0) L 07/03/18 06:42 6.0 g/dL (6.4-8.9) L 07/03/18 06:42 Vancomycin Trough 16 mcg/mL (5-10) H 07/03/18 08:51 - Microbiology Findings Microbiology Findings: Microbiology, Last 48 Hours 07/01/18 23:45 Legionella Antigen - Final Urine,Clean Catch Streptococcus pneumoniae Antigen (M - Final 07/01/18 19:01 Blood Culture - Preliminary Peripheral Venipuncture Culture is incubating and being continuously monitored for growth. Final report to follow. 07/01/18 19:01 Blood Culture - Preliminary Peripheral Venipuncture Culture is incubating and being continuously monitored for growth. Final report to follow. - Clinical Findings Intake & Output: Intake & Output 07/02/18 07/03/18 07/03/18 23:59 07:59 15:59 Intake Total 340 / 2380 780 / 1260 480 / 1260 Output Total 1400 / 3200 1000 / 1800 800 / 1800 Balance -1060 / -820 -220 / -540 -320 / -540 Weight 138.9 kg Consult Discharge Plan - Plan Referrals: Mervin Santiago MD [Primary Care Provider] -
[2018-07-03] MEDS: MethylPREDNISolone 40 MG/ML VIAL IVP SCH (17:41)
[2018-07-03] MEDS ORDERED: Acetaminophen 325 MG TABLET PO PRN (22:30)
[2018-07-03] MEDS: diazePAM 5 MG TABLET PO PRN (22:41)
[2018-07-04] MEDS: MethylPREDNISolone 40 MG/ML VIAL IVP SCH ×2 (00:25→09:07)
[2018-07-04] MEDS: Ipratropium/Albuterol Neb 3 ML IH SCH ×3 (04:04→15:26)
[2018-07-04] MEDS: *HR* Heparin 5,000 UNIT/ML VIAL SQ SCH (05:55)
[2018-07-04 08:37] LABS: Mean Platelet Volume 8.8 fL (9.4-12.4)
[2018-07-04 08:39] LABS: Basophils % 0.1 %; Eosinophils % 0.1 %; Hematocrit 33.6 % (35.3-44.9); Immature Granulocytes % 0.4 % (0-4); Lymphocytes % 12.8 %; Mean Corpuscular HGB Conc 26.8 g/dL (31.6-35.5); Mean Corpuscular Hemoglobin 21.4 pg (28.0-33.3); Monocytes # 0.2 K/mcL (0.0-1.3); Monocytes % 2.7 %; Neutrophils # 6.5 K/mcL (1.6-8.9); Nucleated Red Blood Cells 0.3 /100 WBC (0); Platelet Count 251 K/mcL (140-400); Red Cell Distribution Width 18.6 % (11.5-14.5); Segmented Neutrophils % 83.9 %
[2018-07-04 08:51] LABS: Hypochromasia Present (Not Present)
[2018-07-04 08:52] LABS: Platelet Estimate Normal (Normal)
[2018-07-04 08:56] LABS: Alanine Aminotransferase 20 Units/L (7-52); Albumin 3.8 g/dL (3.5-5.7); Albumin/Globulin Ratio 1.4 (1.1-2.2); Alkaline Phosphatase 65 Units/L (34-104); Aspartate Amino Transferase 13 Units/L (13-39); BUN/Creatinine Ratio 17 (6-26); Bilirubin,Total 0.2 mg/dL (0.3-1.0); Blood Urea Nitrogen 12 mg/dL (6-20); Calcium 9.5 mg/dL (8.6-10.3); Carbon Dioxide 39 mEq/L (23-29); Chloride 94 mEq/L (98-107); Globulin 2.7 g/dL (2.4-3.5); Glucose 181 mg/dL (70-105); Osmolality,Calculated 288 (280-300); Potassium 4.1 mEq/L (3.5-5.1); Sodium 137 mEq/L (136-145); Total Protein 6.5 g/dL (6.4-8.9); eGFR For Non-African Americans > 60 (> 60)
[2018-07-04] MEDS: Furosemide 40 MG/4 ML VIAL IVP SCH (09:06)
[2018-07-04] MEDS: Gabapentin 300 MG CAPSULE PO SCH (09:07)
[2018-07-04] MEDS: Azithromycin 250 MG TABLET PO SCH (09:07)
[2018-07-04] MEDS: Budesonide/Formoterol 160/4.5 1 PUFF INH IH SCH (09:34)
[2018-07-04 11:52] VITALS: BP 157/101
--- NOTE | 2018-07-04 11:56 | Discharge Summary ---
- NOTES TO OUTPATIENT PROVIDER Notes to Outpatient Provider: Patient discharged with steroid taper for 12 days. Will be on then chronic therapy. Patient will need to follow with pulmonology in 1-2 weeks. Patient has high flow oxygen at home set up and we will need pulmonology follow-up for noninvasive ventilation set up. Orders not resulted at time of discharge: Pending orders 07/01/18 19:01 Culture,Blood [BC] Stat 07/05/18 04:00 CMP [Comprehensive Metabolic Panel] AM 0400 Complete Blood Count w/o Diff [HEME] [place] 04007/06/18 04:00 CMP [Comprehensive Metabolic Panel] AM 0400 Complete Blood Count w/o Diff [HEME] AM 04007/07/18 04:00 CMP [Comprehensive Metabolic Panel] AM 0400 Complete Blood Count w/o Diff [HEME] AM 0400 Date of Encounter: 07/04/18 Time of Encounter: 11:54 - Discharge Diagnosis (1) DVT prophylaxis Priority: Secondary Status: Acute (2) Morbid (severe) obesity with alveolar hypoventilation Priority: Secondary Status: Chronic (3) Tobacco abuse Priority: Secondary Status: Chronic (4) Acute on chronic respiratory failure with hypoxia and hypercapnia Priority: Primary Status: Acute (5) Acute on chronic diastolic (congestive) heart failure Priority: Primary Status: Acute (6) Acute metabolic encephalopathy Priority: Primary Status: Acute Hospital course: Ms. Monet is a 37 year old female with past medical history of COPD complicated by respiratory bronchiolitis ILD, fibromyalgia, migraine, osteoporosis, GERD, [place], obesity hypoventilation syndrome, diastolic heart failure came in with complain of hypoxia. Patient was started on treatment for possible bilateral pneumonia with broad-spectrum antibiotics. Patient recently finished a course of Levaquin for pneumonia. She continues to smoke. Pulmonology was consulted. Patient likely did not have pneumonia but has some pulmonary edema. An prick antibiotics were stopped and patient was started on macrolide. Patient was continue IV steroids. Patient improved over the course of her hospital stay. Patient continues to smoke and was discussed extensively to quit smoking to prevent further worsening and to follow with PCP to obtain further help for that. Patient otherwise stable to be discharged to have noninvasive ventilation set up with pulmonology within 1-2 weeks. We will discharge with steroid taper. Patient to continue home by mouth Lasix. - Time Spent with Patient Total time spent providing and/or coordinating discharge services: - Discharge Medications Prescriptions: New predniSONE [PredniSONE] See Taper PO DAILY 12 Days #30 tablet Azithromycin [Zithromax] 250 mg PO Q24H 2 Days #2 tablet Continued DULoxetine [Cymbalta] 60 mg PO BID Ipratropium/Albuterol Neb [Duoneb] 3 ml IH Q6HR PRN PRN Reason: Shortness Of Breath Tiotropium [place] [Spiriva Respimat] 2 puff IH DAILY Baclofen [Lioresal] 10 mg PO TID PRN PRN Reason: Muscle Spasm SUMAtriptan Succinate [Imitrex] 100 mg PO DAILY PRN PRN Reason: Migraine Headache Budesonide/Formoterol 160/4.5 [Symbicort 160/4.5] 2 puff IH BIDR Gabapentin [Neurontin] 800 mg PO QID Esomeprazole Magnesium [Nexium] 40 mg PO DAILY PRN PRN Reason: Indigestion diazePAM [Valium] 10 mg PO Q8H PRN PRN Reason: Anxiety Furosemide [Lasix] 40 mg PO DAILY Potassium Citrate [Urocit-K] 10 meq PO DAILY Albuterol Sulfate [Ventolin Hfa] 1 - 2 puff IH Q4H PRN PRN Reason: Shortness Of Breath Naproxen 500 mg PO BID Aripiprazole [Abilify] 30 mg PO DAILY Home Medications: DULoxetine [Cymbalta] 60 mg PO BID 10/01/14 [History] Ipratropium/Albuterol Neb [Duoneb] 3 ml IH Q6HR PRN 02/03/16 [History] Tiotropium [place] [Spiriva Respimat] 2 puff IH DAILY 02/03/16 [History] Baclofen [Lioresal] 10 mg PO TID PRN 04/19/16 [History] Budesonide/Formoterol 160/4.5 [Symbicort 160/4.5] 2 puff IH BIDR 07/28/17 [History] SUMAtriptan Succinate [Imitrex] 100 mg PO DAILY PRN 07/28/17 [History] Esomeprazole Magnesium [Nexium] 40 mg PO DAILY PRN 10/10/17 [History] Gabapentin [Neurontin] 800 mg PO QID 10/10/17 [History] Furosemide [Lasix] 40 mg PO DAILY 02/02/18 [History] Potassium Citrate [Urocit-K] 10 meq PO DAILY 02/02/18 [History] diazePAM [Valium] 10 mg PO Q8H PRN 02/02/18 [History] Albuterol Sulfate [Ventolin Hfa] 1 - 2 puff IH Q4H PRN 02/04/18 [History] Naproxen 500 mg PO BID 03/02/18 [History] Aripiprazole [Abilify] 30 mg PO DAILY 04/23/18 [History] Azithromycin [Zithromax] 250 mg PO Q24H 2 Days #2 tablet 07/04/18 [Rx] predniSONE [PredniSONE] See Taper PO DAILY 12 Days #30 tablet 07/04/18 [Rx] Allergies/Adverse Reactions: Allergy/AdvReac Type Severity Reaction Status Date / Time ketorolac [From Toradol] Allergy Intermediate Weakness Verified 07/02/18 10:42 Pneumococcal Vaccine Allergy Intermediate Rash Verified 07/02/18 10:42 [From Prevnar] tramadol Allergy Intermediate Weakness Verified 07/02/18 10:42 Cefaclor Allergy Rash Verified 07/02/18 10:42 Asenapine [From Saphris] AdvReac See Verified 07/02/18 10:42 Comments lamotrigine [From Lamictal] AdvReac Migraine Verified 07/02/18 10:42 lurasidone [From Latuda] AdvReac See Verified 07/02/18 10:42 Comments Date of admission: 07/02/18 09:56 Primary care physician: Mervin Santiago MD Consults: 07/01/18 21:04 Consult to Nurse Navigator [CONS] Routine Comment: 07/01/18 22:00 Consult to Scuba Diving Instructor [CONS] Routine Reason for SW Consult: Pt voices need for Home health and [facility] [place]. 07/03/18 09:22 Consult to Invasive Line Access Team [CONS] Routine Reason for Consult: limited vascular access, refusing peripheral attempts Line Type: EPIV Discharging clinician: Jagjit Todd - Constitutional Vitals: Temp Pulse Resp BP Pulse Ox 97.9 F 96 17 157/101 94 07/04/18 04:31 07/04/18 11:49 07/04/18 11:49 07/04/18 11:49 07/04/18 11:49 Exam: General: In no acute distress. Obese Respiratory exam: no accessory muscle use. CTAB Cardiovascular exam: RRR, +S1, +S2. no murmur, gallop, rubs. GI/Abdominal exam: Non-tender, Non-distended, normal bowel sounds, soft, no peritoneal signs. Extremities exam: 1+ pedal edema, pulses palpable in b/l lower extremities. no calf tenderness Neurological exam: CN II-XII intact, AO X3, no focal deficits. Skin exam: No skin rash. - Patient Status Disposition: Home, Self-Care Condition: Fair - Discharge Instructions Follow Up With: Mervin Santiago MD [Primary Care Provider] - - Diet and Activity Activity: wear oxygen at all times
--- NOTE | 2018-07-04 12:20 | Physician Discharge Referral ---
Home Health/Hosp Referral Info Transfer to: Home Health - Diagnosis (1) DVT prophylaxis Status: Acute (2) Morbid (severe) obesity with alveolar hypoventilation Status: Chronic (3) Tobacco abuse Status: Chronic (4) Acute on chronic respiratory failure with hypoxia and hypercapnia Status: Acute (5) Acute on chronic diastolic (congestive) heart failure Status: Acute (6) Acute metabolic encephalopathy Status: Acute - Respiratory Orders Smoking Cessation: Smoking cessation has been advised. For more information, call the [place] Tobacco Quit Line at 5-771-TMZC-NOW. - Services Needed Following services are medically necessary services: Home Health Aide - Transfer Medications Prescriptions: predniSONE [PredniSONE] See Taper PO DAILY 12 Days #30 tablet Azithromycin [Zithromax] 250 mg PO Q24H 2 Days #2 tablet Home Medications: DULoxetine [Cymbalta] 60 mg PO BID 10/01/14 [History] Ipratropium/Albuterol Neb [Duoneb] 3 ml IH Q6HR PRN 02/03/16 [History] Tiotropium [place] [Spiriva Respimat] 2 puff IH DAILY 02/03/16 [History] Baclofen [Lioresal] 10 mg PO TID PRN 04/19/16 [History] Budesonide/Formoterol 160/4.5 [Symbicort 160/4.5] 2 puff IH BIDR 07/28/17 [History] SUMAtriptan Succinate [Imitrex] 100 mg PO DAILY PRN 07/28/17 [History] Esomeprazole Magnesium [Nexium] 40 mg PO DAILY PRN 10/10/17 [History] Gabapentin [Neurontin] 800 mg PO QID 10/10/17 [History] Furosemide [Lasix] 40 mg PO DAILY 02/02/18 [History] Potassium Citrate [Urocit-K] 10 meq PO DAILY 02/02/18 [History] diazePAM [Valium] 10 mg PO Q8H PRN 02/02/18 [History] Albuterol Sulfate [Ventolin Hfa] 1 - 2 puff IH Q4H PRN 02/04/18 [History] Naproxen 500 mg PO BID 03/02/18 [History] Aripiprazole [Abilify] 30 mg PO DAILY 04/23/18 [History] Azithromycin [Zithromax] 250 mg PO Q24H 2 Days #2 tablet 07/04/18 [Rx] predniSONE [PredniSONE] See Taper PO DAILY 12 Days #30 tablet 07/04/18 [Rx] Allergies/Adverse Reactions: Allergy/AdvReac Type Severity Reaction Status Date / Time ketorolac [From Toradol] Allergy Intermediate Weakness Verified 07/02/18 10:42 Pneumococcal Vaccine Allergy Intermediate Rash Verified 07/02/18 10:42 [From Prevnar] tramadol Allergy Intermediate Weakness Verified 07/02/18 10:42 Cefaclor Allergy Rash Verified 07/02/18 10:42 Asenapine [From Saphris] AdvReac See Verified 07/02/18 10:42 Comments lamotrigine [From Lamictal] AdvReac Migraine Verified 07/02/18 10:42 lurasidone [From Latuda] AdvReac See Verified 07/02/18 10:42 Comments Certification: Further, I certify that my clinical findings support that this patient is homebound (i.e. absences from home require considerable and taxing effort and are for medical reasons or islam services or infrequently or short duration when for other reasons) because: Homebound Reason: Patient requires assistance of a person or device to safely leave home Attestation: My signature below is to certify that this patient is under my care and that I, or nurse practitioner, or a physician's retail administrative assistant working with me, has a [id number] encounter with this patient.
[2018-07-04] MEDS: diazePAM 5 MG TABLET PO PRN (12:57)
== END 2018-07-04 17:17 | disposition home or self-care (01) | DRG 291 ==
LOC: EMEROOARM 16:00 → 3BNU 16:00 → SUATTDRO 07-02 09:56 → 2NENU 07-02 14:17
PROVIDERS: ADMIT Family Medicine; ATTEND Internal Medicine